=== PATIENT | female | born 1990 | race Caucasian/White ===

== ENCOUNTER 2024-03-30 15:33 | Emergency (ER) | payer OTHER, BC, SELFPAY ==
[2024-03-30 15:34] VITALS: BP 98/79
[2024-03-30 16:37] VITALS: BP 118/92
[2024-03-30 16:48] VITALS: BMI 22.3
--- NOTE | 2024-03-30 16:59 | EDRN ---
IV team called to draw blood from PICC line at this time.
--- NOTE | 2024-03-30 17:33 | ED.GENMED ---
History of Present Illness
General
Chief Complaint: Abnormal Lab Value
Source: patient and family
Exam Limitations: none
Time Seen by Provider: 03/30/24 16:32
Nursing documentation reviewed up to this point in time: agreed with
History of Present Illness
History of Present Illness:
Patient with history of GERD, Crohn's disease, and liver cirrhosis, presents to the emergency department from rehab facility secondary to recurrent abdominal distention along with 'abnormal blood work'. Patient denies fever or chills. Denies
trauma. Denies nausea or vomiting. Denies diarrhea. Denies change in bowel habits. Denies recent change in medications or diet. Patient states that her abdomen is mildly distended, but has been more distended in the past when she required acute
treatment. Per father at bedside, patient does not look much different than her usual baseline condition.
Review of Systems
Review of Systems
Allergies reviewed?: Yes
All Other Systems: ROS reviewed and negative except as documented in HPI and ROS
Constitutional: Reports no symptoms; Denies fever or chills
Cardiac: Reports no symptoms
ABD/GI: Reports other (distention); Denies abdominal pain, nausea, vomiting or diarrhea
: Reports no symptoms
Musculoskeletal: Reports no symptoms
Skin: Reports no symptoms
Neurological: Reports no symptoms
Phy Exam
Physical Exam
Physical Exam:
Physical Exam
General: no apparent distress, not acutely ill. afebrile
Head: nc/at. eomi
Neck: supple. no meningeal signs.
Heart: s1/s2 regular rate and rhythm, no murmur. equal radial pulses.
Lungs: no acute respiratory distress. clear bilaterally
Abdomen: normal bowel sounds. not tender. minimal distention noted.
Neuro: alert and oriented. no focal neurological deficits
Skin: no rash
Psychiatric: well kept. interactive and cooperative
Extremities: no edema. no calf tenderness.
Course
Orders/Labs/Results
Orders:
Orders
10/23/24 17:21
Cr Chest Portable [CR Chest Portable - 1 View] Urgent
Comment:
Reason For Exam: LUE picc line placement
Reason Study Needs to be Portable: Patient Unstable
03/30/24 20:00
Complete Blood Count/With Diff Urgent
Comprehensive Metabolic Panel Urgent
Lipase Urgent
Magnesium Urgent
Abnormal Lab Results
03/30/24
20:00
RBC 3.34 L 10^6/uL
(4.20-5.40)
Hgb 10.1 L g/dL
(12.0-16.0)
Hct 30.7 L %
(37.0-47.0)
MCHC 32.9 L g/dL
(33.0-37.0)
RDW 17.9 H %
(11.5-14.5)
MPV 10.8 H fL
(7.4-10.4)
Abs Immat Gran (auto) 0.1 H 10^3/uL
(0-0.05)
Immature Gran % 1.0 H %
(0-0.5)
Neutrophils % 79.5 H %
(42.2-75.2)
Lymphocytes % 16.7 L %
(20.5-51.1)
Sodium 134 L mmol/L
(135-145)
Carbon Dioxide 17 L mmol/L
(22-30)
Creatinine 0.5 L mg/dL
(0.6-1.0)
Glucose 166 H mg/dl
(70-99)
Calcium 7.4 L mg/dl
(8.4-10.2)
AST 70 H U/L
(14-36)
ALT 42 H U/L
(0-35)
Alkaline Phosphatase 251 H U/L
(38-126)
Total Protein 4.7 L g/dl
(6.3-8.2)
Albumin 1.8 L g/dl
(3.5-5.0)
Lipase 16 L U/L
(23-300)
03/30/24 20:00
03/30/24 20:00
Vital Signs
Initial and Last Documented VS:
Initial Vital Signs
Temp Pulse Resp BP Pulse Ox
98.8 F 119 20 98/79 97
03/30/24 15:34 03/30/24 15:34 03/30/24 15:34 03/30/24 15:34 03/30/24 15:34
Last Documented Vital Signs
Temp Pulse Resp BP Pulse Ox
98.8 F 103 20 125/86 97
03/30/24 15:34 03/30/24 21:30 03/30/24 21:30 03/30/24 21:30 03/30/24 20:02
MDM/Problems Addressed
MDM/Problems Addressed:
Patient with an unremarkable workup in ED, including blood work. Patient otherwise remains afebrile, hemodynamically stable, and nontoxic-appearing. Patient states that her abdominal pain has subsided and requesting meals, which she has consumed
in ED without difficulties. Patient and her father feel comfortable going home at this time, with any further workup. Advised to return to ED with any worsening symptoms, i.e. fever/worsening pain/distention/vomiting.
*Critical Care Note
Total Time (30-74mins, 75-104mins- exclusive of procedures): Not Applicable
ED Attending Note
-
Portions of this chart may have been created with voice recognition software.� Occasional wrong word or��sound alike� substitutions may have occurred due to the inherent limitations of voice recognition software.
Discharge Plan
Departure
Patient Disposition: Home (Routine Discharge)
Date of Disposition: 03/30/24
Time of Disposition: 21:22
Patient with high blood pressure during this ER visit?: No
Condition: Good
Discharge Problem:
Abdominal pain
Instructions: Abdominal Pain, Adult ED
Prescriptions:
No Action
quetiapine 25 mg Tablet
25 mg PO BID
sennosides [senna] 8.6 mg Tablet
8.6 mg PO DAILY
lidocaine 4 % Adhesive Patch,Medicated
1 patch TOPICAL DAILY
ondansetron HCl [Zofran] 4 mg Tablet
4 mg PO Q8HPRN PRN (Reason: nausea)
loperamide 2 mg Tablet
2 mg PO Q6HPRN PRN (Reason: diarrhea)
thiamine HCl (vitamin B1) 100 mg Tablet
100 mg PO DAILY
acetaminophen 500 mg Tablet
1,000 mg PO Q8HPRN PRN (Reason: mild pain)
ascorbic acid (vitamin C) [Vitamin C] 500 mg Tablet
500 mg PO DAILY
doxycycline monohydrate 100 mg Capsule
100 mg PO BID
pantoprazole 40 mg Tablet,Delayed Release (Dr/Ec)
40 mg PO DAILY
ferrous sulfate 325 mg (65 mg iron) Tablet
325 mg PO DAILY
prednisone 50 mg Tablet
50 mg PO DAILY
docusate sodium 100 mg Capsule
100 mg PO BID
furosemide [Lasix] 20 mg Tablet
20 mg PO BID
gabapentin 100 mg Capsule
100 mg PO Q8
scopolamine base 1 mg over 3 days Patch 3 Day
1 patch TRANSDERMAL Q3D
dicyclomine 10 mg Capsule
10 mg PO Q6HPRN PRN (Reason: treatment of functiona/ibs)
spironolactone [Aldactone] 50 mg Tablet
50 mg PO DAILY
bisacodyl 5 mg Tablet
5 mg PO DAILYPRN PRN (Reason: constipation)
enoxaparin [Lovenox] 30 mg/0.3 mL Syringe
30 mg SC DAILY
sodium chloride 0.9 % (flush) [Normal Saline Flush] Syringe
10 ml IV TID
Patient Comments:
for SASH/SAS technique after med administration
mirtazapine 7.5 mg Tablet
7.5 mg PO HS
zinc sulfate 50 mg zinc (220 mg) Capsule
50 mg PO DAILY
buprenorphine-naloxone [Suboxone] 8-2 mg Film
1 film BUCCAL BID
lactulose 20 gram/30 mL Solution
20 g PO TID
potassium chloride 20 mEq Tablet Extended Release
20 meq PO DAILY
naloxone 4 mg/actuation [place],Non-Aerosol
4 mg INTRANASAL Q2MPRN PRN (Reason: opioid overdose)
magnesium oxide 400 mg magnesium Tablet
400 mg PO DAILY
Referrals:
NONE,* [Family Provider] -
Activity Restrictions/Additional Instructions:
As discussed, please follow-up with your primary care physician for reevaluation. Please return to ED with worsening symptoms, i.e. fever/worsening pain/vomiting.
Interventions
Interventions:
*Risk Screen - Suicide Last Done: 03/30/24 15:34
*General Assessment Last Done: 03/30/24 15:34
*Neglect/Abuse Screening Last Done: 03/30/24 15:34
ED- Fall Risk Assessment Last Done: 03/30/24 16:49
*ED COVID-19 Vaccine History Last Done: 03/30/24 16:48
*Nursing Disposition Last Done: 03/30/24 21:49
Discharge Date and Time
Discharge Date/Time: 03/30/24 21:50
Print Language: MALTESE
[2024-03-30 17:41] VITALS: BP 123/99
--- NOTE | 2024-03-30 18:01 | EDRN ---
IV nurse attempted to draw blood from PICC line and could not draw blood off of line. Dr. Conway requested this RN to straight stick pt for blood but no veins found to stick. [facility] PCT was asked to check and see if she could draw the blood. Dr. Mcintosh
asked for this RN to request a plastic production machine setter to attempt blood draw but [employer] said ER cannot page phlebotomy to draw bloods in the ER. This RN will check w/ charge nurse on options. In the meantime pt is awaiting portable CXR and IV team will return
after it is done as unable to draw off of PICC line.
--- NOTE | 2024-03-30 18:23 | EDRN ---
[facility] at [facility]. Blood was drawn by Kathie medical technologist chief and sent to lab w/ 'difficult stick' comment.
--- NOTE | 2024-03-30 18:48 | EDRN ---
Unable to result labs. PICC line read in place from CXR. IV team called back to re-attempt blood draw at this time.
[2024-03-30 20:02] VITALS: BP 85/75
[2024-03-30 20:13] LABS: % Basophils 0.1 % (0-2); % Lymphocytes 16.7 % (20.5-51.1); % Monocytes 2.7 % (1.7-9.3); % Neutrophils 79.5 % (42.2-75.2); Absolute Immature Granulocytes 0.1 10^3/uL (0-0.05); Absolute Lymphocytes 1.3 10^3/uL (1.2-3.4); Absolute Monocytes 0.2 10^3/uL (0.1-0.6); Absolute Neutrophils 6.2 10^3/uL (1.4-6.5); Hematocrit 30.7 % (37.0-47.0); Hemoglobin 10.1 g/dL (12.0-16.0); Mean Corp Hgb Conc. 32.9 g/dL (33.0-37.0); Mean Corpuscular Hgb 30.2 pg (27.0-31.0); Mean Corpuscular Volume 91.9 fL (81.0-99.0); Mean Platelet Volume 10.8 fL (7.4-10.4); Nucleated Red Blood Cells % 0.3 %; Platelet Count 210 10^3/uL (130-400); Red Blood Cell Count 3.34 10^6/uL (4.20-5.40); Red Cell Dist. Width 17.9 % (11.5-14.5); White Blood Cell Count 7.8 10^3/uL (4.8-10.8)
[2024-03-30 20:24] LABS: ALT (SGPT) 42 U/L (0-35); AST (SGOT) 70 U/L (14-36); Albumin 1.8 g/dl (3.5-5.0); Alkaline Phosphatase 251 U/L (38-126); Blood Urea Nitrogen 11 mg/dl (7-17); Calcium 7.4 mg/dl (8.4-10.2); Carbon Dioxide 17 mmol/L (22-30); Chloride 103 mmol/L (98-107); Estimated Creatinine Clearance 119 ml/min; Glucose 166 mg/dl (70-99); Magnesium 1.6 mg/dl (1.6-2.3); Potassium 3.7 mmol/L (3.5-5.1); Sodium 134 mmol/L (135-145); Total Bilirubin 0.3 mg/dl (0.2-1.3); Total Protein 4.7 g/dl (6.3-8.2); eGFR > 60.00
[2024-03-30 20:25] LABS: Lipase 16 U/L (23-300)
[2024-03-30 21:30] VITALS: BP 125/86
== END 2024-03-30 21:50 | disposition home or self-care (01) ==
LOC: EMR 15:33
PROVIDERS: EMERGENCY PHYSICIAN Emergency Medicine
DX: R10.9 Unspecified abdominal pain (principal); K21.9 Gastro-esophageal reflux disease without esophagitis; K50.90 Crohn's disease, unspecified, without complications; K74.60 Unspecified cirrhosis of liver
CPT/HCPCS: 99284; 71045; 80053; 83690; 83735; 85025

== ENCOUNTER 2024-04-01 02:00 | Inpatient (IN) | payer OTHER, SELFPAY ==
[2024-03-31 20:29] VITALS: BP 101/79
[2024-03-31 20:35] VITALS: BP 56/26
[2024-03-31 20:37] VITALS: BP 101/79
[2024-03-31 20:38] VITALS: BP 108/86
[2024-03-31 21:00] VITALS: BP 91/76
--- NOTE | 2024-03-31 21:34 | VATNOTE ---
called to obtain lab work and assess left picc line; pt does not know when picc was placed at rehab but was placed for lab work. Picc appears to have been redressed 03/30 by LUÍS here @ . Picc line is sluggish for blood flow after multiple
flushes. Requested cath rai be ordered for picc patency.
[2024-03-31] MEDS: DILAUDID 1 MG IV (21:56)
[2024-03-31] MEDS: ZOFRAN 4 MG IV (21:56)
[2024-03-31 22:00] VITALS: BP 102/88
[2024-03-31] MEDS: OMNIPAQUE 50 ML PO (22:12)
[2024-03-31] MEDS: NSS 1000 IV (22:13)
--- NOTE | 2024-03-31 22:20 | VATNOTE ---
decision to pull picc back a 'titch' and redress with statlock. Blood flow improved from earlier. Labs obtained. Cathflo not given at this time.
[2024-03-31 22:22] LABS: % Basophils 0.2 % (0-2); % Eosinophils 0.1 % (0-6); % Immature Granulocytes 0.5 % (0-0.5); % Lymphocytes 23.9 % (20.5-51.1); % Monocytes 9.7 % (1.7-9.3); % Neutrophils 65.6 % (42.2-75.2); Absolute Immature Granulocytes 0.1 10^3/uL (0-0.05); Absolute Lymphocytes 4.2 10^3/uL (1.2-3.4); Absolute Monocytes 1.7 10^3/uL (0.1-0.6); Absolute Neutrophils 11.6 10^3/uL (1.4-6.5); Hematocrit 30.4 % (37.0-47.0); Mean Corp Hgb Conc. 32.9 g/dL (33.0-37.0); Mean Corpuscular Hgb 29.4 pg (27.0-31.0); Mean Corpuscular Volume 89.4 fL (81.0-99.0); Mean Platelet Volume 10.1 fL (7.4-10.4); Nucleated Red Blood Cells % 0.3 %; Platelet Count 228 10^3/uL (130-400); Red Cell Dist. Width 17.6 % (11.5-14.5); White Blood Cell Count 17.6 10^3/uL (4.8-10.8)
[2024-03-31 22:34] LABS: ALT (SGPT) 41 U/L (0-35); AST (SGOT) 53 U/L (14-36); Albumin 1.7 g/dl (3.5-5.0); Alkaline Phosphatase 216 U/L (38-126); Blood Urea Nitrogen 13 mg/dl (7-17); Calcium 7.6 mg/dl (8.4-10.2); Carbon Dioxide 26 mmol/L (22-30); Chloride 105 mmol/L (98-107); Glucose 87 mg/dl (70-99); Lipase 18 U/L (23-300); Potassium 4.5 mmol/L (3.5-5.1); Sodium 133 mmol/L (135-145); Total Bilirubin 0.3 mg/dl (0.2-1.3); Total Protein 4.4 g/dl (6.3-8.2); eGFR > 60.00
--- NOTE | 2024-03-31 22:35 | ED.GENMED ---
History of Present Illness
<Sarah Pozo PA-C - Last Filed: 04/03/24 18:05>
General
Chief Complaint: Abdominal Symptoms
Source: patient and family
Time Seen by Provider: 03/31/24 21:31
History of Present Illness
History of Present Illness:
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
department for evaluation of abdominal pain, increased belching, nausea and generally feeling unwell. Patient states that since her complications in [place] that led to her right upper extremity being amputated she has had these abdominal pains and
symptoms. Patient had a bowel obstruction a few months ago and was admitted at [facility] and [facility] for similar. Patient has been in and out of rehab facilities and hospitals for the symptoms. Recently was discharged from
rehab facility although both patient and family feel that patient was discharged too early as she is unable to walk. Patient states today symptoms are not much different than what she has been experiencing chronically but patient does state that
she feels as if she is having a recurrent bowel obstruction.
Past History
<Sarah Pozo PA-C - Last Filed: 04/03/24 18:05>
Past History
ED Past Medical History: Renal failure, Psychiatric and Other (Hepatitis C, Crohn's disease, liver disease)
ED Past Surgical History: Tonsilectomy and Other (Partial right upper extremity amputation)
Social History
Tobacco: Smoker
Alcohol: None
Drug: Former user and IVDA
Personal: Single
Living: with family
Review of Systems
<Sarah Pozo PA-C - Last Filed: 04/03/24 18:05>
Review of Systems
All Other Systems: ROS reviewed and negative except as documented in HPI and ROS
Phy Exam
<Sarah Pozo PA-C - Last Filed: 04/03/24 18:05>
Physical Exam
Physical Exam:
GENERAL: Alert , appears older than stated age, chronically ill-appearing, appears quite uncomfortable
HEAD: NCAT
EYE: Clear conjunctiva
NECK: Supple
ENT: mmm.
CARDIAC: Regular rate and rhythm .
LUNGS: Clear breath sounds bilaterally, no acute respiratory distress, no wheezes/rales/rhonchi
ABDOMEN: Firm and somewhat rigid, distended, diffusely tender, hypoactive bowel sounds
NEUROLOGICAL: Alert and oriented
SKIN: Warm and dry, skin intact.
MUSCULOSKELETAL:, Stump without any erythema, no bogginess, partial right upper extremity amputation noted well perfused.
PSYCH: Normal and appropriate interaction.
Scores
<Sarah Pozo PA-C - Last Filed: 04/03/24 18:05>
Heart Failure Risk
Heart Failure Risk Score: Not Applicable
Heart Score for Chest Pain Patients
STEMI patient?: Not applicable
Withdrawal Assessment of Alcohol
Withdrawal Assessment Completed?: Not applicable
Course
<Sarah Pozo PA-C - Last Filed: 04/03/24 18:05>
Orders/Labs/Results
Orders:
Orders
03/31/24 20:40
Chest X-ray Portable [CR Chest Portable - 1 View] Urgent
Comment:
Reason For Exam: PICC placement
Reason Study Needs to be Portable: Patient Unstable
03/31/24 21:18
Alteplase [Cathflo/Activase] 2 mg INTRACATH NOW STA
03/31/24 21:50
0.9% Sodium Chloride 1000 ml [Nss] 1,000 ml IV BOLUS
HYDROmorphone [Dilaudid] 1 mg IV NOW STA
Ondansetron Injectable [Zofran] 4 mg IV NOW STA
Test Result ONCE
03/31/24 22:05
Iohexol [Omnipaque] See Protocol PO NOW STA
03/31/24 22:16
Complete Blood Count/With Diff Urgent
Comprehensive Metabolic Panel Urgent
HCG, Serum Qualitative Screen Urgent
Lipase Urgent
03/31/24 22:47
Lactic Acid Q4H
Comment: CANCEL 2nd LACTIC ACID IF 1st LACTIC ACID IS LESS THAN 2
03/31/24 23:20
0.9% Sodium Chloride 1000 ml [Nss] 1,000 ml IV BOLUS
03/31/24 23:30
Blood Culture Q30M
BEN Source: Blood/Venous
Specimen Description:
03/31/24 23:36
Piperacillin/Tazo 4.5 Gram [Zosyn] 4.5 gram in 100 ml IV NOW
03/31/24 23:45
CT Abd/pel (oral only)-[facility] Only Urgent
Reason For Exam: abdominal pain, hx bowel obstruction
04/01/24 00:15
NG Tube [GI tube insertion- Treatment] ONCE
04/01/24 00:47
Portable Chest Xray [CR Chest Portable - 1 View] Urgent
Comment:
Reason For Exam: confirm NGT placement
Reason Study Needs to be Portable: Unable to Transport
04/01/24 01:29
HYDROmorphone [Dilaudid] 0.5 mg IV NOW STA
04/01/24 01:45
Admit/Transfer Patient As Directed
Co-Sign Provider:
Level of Care: Inpatient admission
Assign to:: Medical/Surgical
Physician / Group: hospitalist
Diagnosis: small bowel obstruction
Reason for Hospitalization: small bowel obstruction
Expected length of stay greater than two midnights?: Yes
ELOS- Estimated Length of Stay in days: 2
I certify the patient meets the requirements for IP care: Yes
PRN Pain Medication Management As Directed
May give lesser potent ordered pain med per pt: Yes
preference::
Protocol:: Medication orders for pain may be administered in a
manner that supports deferring to patient preference
when the pt is:
- Requesting an ordered lesser potent pain medication.
Least to most potent pain medications are defined
as: acetaminophen < NSAID < tramadol < opioids
(morphine, oxycodone, hydromorphone).
- Requesting a lesser dose of the same medication IF
ORDERED.
- Requesting a less intrusive route of administration
if both routes are prescribed by the provider (PO <
IV).
04/01/24 01:46
Code Status As Directed
Resuscitation Status: Full Code
04/01/24 01:57
Urinalysis Reflex To Culture Stat
Date Specimen was Collected: 04/02/24
Time Specimen was Collected: 11:09
Comment: st cath
04/01/24 02:00
Flush (0.9% Sodium Chloride) [Flush (Nss)] See Dose Instructions IV PER PROTOCOL
04/01/24 02:13
Acetaminophen [Tylenol] 650 mg PO Q4HPRN PRN
Bisacodyl [Dulcolax] 10 mg RECTAL [id number] PRN
Dextrose 5%/Lactringers 1000ML [D5lr] 1,000 ml IV 30 mls/hr
Docusate W/Senna [Senokot-S] 1 tablet PO BIDPRN PRN
HYDROmorphone [Dilaudid] 0.5 mg IV Q4HPRN PRN
Ondansetron Injectable [Zofran] 4 mg IV Q6HPRN PRN
Polyethylene Glycol Powder [Miralax] 17 grams PO DAILYPRN PRN
04/01/24 02:13
Consult Notification Routine
Specialty to Notify: Gastroenterology
Date consulting provider notified: 04/01/24
Time consulting provider notified: 06:54
Notified:: Provider
Consult Notification Routine
Specialty to Notify: Surgical
Date consulting provider notified: 04/01/24
Time consulting provider notified: 06:53
Notified:: Provider
GASTROINTESTINAL CONSULT Routine
Consulting Provider: Catia Rowland
Was physician already notified: No
Reason for consult: h/o crohns here with SBP
SURGICAL CONSULT Routine
Consulting Provider: Crescencio Gonzalez
Was physician already notified: No
Reason for consult: small bowel obstruction
Calprotectin, Fecal [S] Routine
Date Specimen was Collected: 04/02/24
Time Specimen was Collected: 19:11
Activity As Directed
Activity Level: With Assistance
Medical Records Request [Obtain Records] As Directed
Dates of Information to be Released: February 06 to March 31 2024
Type of Information Requested: Discharge Summary
Consults
Radiology Results
H&P
Obtain Records from: [facility]
NG Tube [Gastrointestinal Tubes] As Directed
Type: [place] sump
To suction?: Yes
Type of suction: Low intermittent
Directions to clamp NG tube: for activity <30min
Irrigate tube?: Yes
Irrigant: Tap Water
Frequency: Q4H
Amount in mls: 30
Irrigation Directions: Irrigate Q4H and PRN
Vital Signs As Directed
Frequency: Per unit guidelines
DX Deep Vein Thrombosis Video Routine
04/01/24 03:25
Lactic Acid Q4H
Comment: CANCEL 2nd LACTIC ACID IF 1st LACTIC ACID IS LESS THAN 2
04/01/24 03:26
Blood Culture Q30M
BEN Source: Blood/Venous
Specimen Description:
04/01/24 Breakfast
NPO
Allow oral meds: Yes
Allow clear liquids: No
NPO with Ice Chips: Yes
04/01/24 07:38
Basic Metabolic Panel IN AM
CRP [C-Reactive Protein] IN AM
Complete Blood Count/No Diff IN AM
Magnesium IN AM
04/01/24 08:00
Buprenorphine [Subutex] 1 mg SL BID
Gabapentin [Neurontin] 100 mg PO Q8
Heparin 5,000 units SC Q8
Lactulose [Duphalac/Chronulac] 20 grams PO TID
Lidocaine [Lidocaine 4% Patch] 1 patch TOPICAL DAILY
Apply Lidocaine patch(s) to:: Left Shoulder
Pantoprazole [Protonix IV] 40 mg IV DAILY
Quetiapine Fumarate [Seroquel] 25 mg PO BID
Scopolamine [Transderm-Scop] 1 patch TRANSDERM Q3D
Sennosides [Senokot] 8.6 mg PO DAILY
Spironolactone [Aldactone] 50 mg PO DAILY
Thiamine Injection 100 mg IV DAILY
04/01/24 20:00
Remove Patch [Remove Lidocaine Patch] 1 patch REMOVE DAILY@1999
Abnormal Lab Results
03/31/24 03/31/24
22:16 22:47
WBC 17.6 H 10^3/uL
(4.8-10.8)
RBC 3.40 L 10^6/uL
(4.20-5.40)
Hgb 10.0 L g/dL
(12.0-16.0)
Hct 30.4 L %
(37.0-47.0)
MCHC 32.9 L g/dL
(33.0-37.0)
RDW 17.6 H %
(11.5-14.5)
Abs Immat Gran (auto) 0.1 H 10^3/uL
(0-0.05)
Absolute Neuts (auto) 11.6 H 10^3/uL
(1.4-6.5)
Absolute Lymphs (auto) 4.2 H 10^3/uL
(1.2-3.4)
Absolute Monos (auto) 1.7 H 10^3/uL
(0.1-0.6)
Monocytes % 9.7 H %
(1.7-9.3)
Sodium 133 L mmol/L
(135-145)
Creatinine 0.4 L mg/dL
(0.6-1.0)
Lactic Acid 2.4 H mmol/L
(0.7-2.0)
Calcium 7.6 L mg/dl
(8.4-10.2)
AST 53 H U/L
(14-36)
ALT 41 H U/L
(0-35)
Alkaline Phosphatase 216 H U/L
(38-126)
Total Protein 4.4 L g/dl
(6.3-8.2)
Albumin 1.7 L g/dl
(3.5-5.0)
Lipase 18 L U/L
(23-300)
03/31/24 22:16
03/31/24 22:16
Vital Signs
Initial and Last Documented VS:
Initial Vital Signs
Temp Pulse Resp BP Pulse Ox
97.8 F 86 18 101/79 100
03/31/24 20:29 03/31/24 20:29 03/31/24 20:29 03/31/24 20:29 03/31/24 20:29
Last Documented Vital Signs
Temp Pulse Resp BP Pulse Ox
98.0 F 97 23 110/77 98
04/03/24 15:56 04/03/24 15:00 04/03/24 15:00 04/03/24 14:00 04/03/24 16:00
Codilt;Sonny Sultana, DO - Last Filed: 04/01/24 01:15>
Orders/Labs/Results
Orders:
Orders
03/31/24 20:40
Chest X-ray Portable [CR Chest Portable - 1 View] Urgent
Comment:
Reason For Exam: PICC placement
Reason Study Needs to be Portable: Patient Unstable
03/31/24 21:18
Alteplase [Cathflo/Activase] 2 mg INTRACATH NOW STA
03/31/24 21:50
0.9% Sodium Chloride 1000 ml [Nss] 1,000 ml IV BOLUS
HYDROmorphone [Dilaudid] 1 mg IV NOW STA
Ondansetron Injectable [Zofran] 4 mg IV NOW STA
Test Result ONCE
03/31/24 22:05
Iohexol [Omnipaque] See Protocol PO NOW STA
03/31/24 22:16
Complete Blood Count/With Diff Urgent
Comprehensive Metabolic Panel Urgent
HCG, Serum Qualitative Screen Urgent
Lipase Urgent
03/31/24 22:47
Lactic Acid Q4H
Comment: CANCEL 2nd LACTIC ACID IF 1st LACTIC ACID IS LESS THAN 2
03/31/24 23:20
0.9% Sodium Chloride 1000 ml [Nss] 1,000 ml IV BOLUS
03/31/24 23:30
Blood Culture Q30M
BEN Source: Blood/Venous
Specimen Description:
03/31/24 23:36
Piperacillin/Tazo 4.5 Gram [Zosyn] 4.5 gram in 100 ml IV NOW
03/31/24 23:45
CT Abd/pel (oral only)-[facility] Only Urgent
Reason For Exam: abdominal pain, hx bowel obstruction
04/01/24 00:15
NG Tube [GI tube insertion- Treatment] ONCE
04/01/24 00:47
Portable Chest Xray [CR Chest Portable - 1 View] Urgent
Comment:
Reason For Exam: confirm NGT placement
Reason Study Needs to be Portable: Unable to Transport
04/01/24 01:29
HYDROmorphone [Dilaudid] 0.5 mg IV NOW STA
04/01/24 01:45
Admit/Transfer Patient As Directed
Co-Sign Provider:
Level of Care: Inpatient admission
Assign to:: Medical/Surgical
Physician / Group: hospitalist
Diagnosis: small bowel obstruction
Reason for Hospitalization: small bowel obstruction
Expected length of stay greater than two midnights?: Yes
ELOS- Estimated Length of Stay in days: 2
I certify the patient meets the requirements for IP care: Yes
PRN Pain Medication Management As Directed
May give lesser potent ordered pain med per pt: Yes
preference::
Protocol:: Medication orders for pain may be administered in a
manner that supports deferring to patient preference
when the pt is:
- Requesting an ordered lesser potent pain medication.
Least to most potent pain medications are defined
as: acetaminophen < NSAID < tramadol < opioids
(morphine, oxycodone, hydromorphone).
- Requesting a lesser dose of the same medication IF
ORDERED.
- Requesting a less intrusive route of administration
if both routes are prescribed by the provider (PO <
IV).
04/01/24 01:46
Code Status As Directed
Resuscitation Status: Full Code
04/01/24 01:57
Urinalysis Reflex To Culture Stat
Date Specimen was Collected: 04/02/24
Time Specimen was Collected: 11:09
Comment: st cath
04/01/24 02:00
Flush (0.9% Sodium Chloride) [Flush (Nss)] See Dose Instructions IV PER PROTOCOL
04/01/24 02:13
Acetaminophen [Tylenol] 650 mg PO Q4HPRN PRN
Bisacodyl [Dulcolax] 10 mg RECTAL [id number] PRN
Dextrose 5%/Lactringers 1000ML [D5lr] 1,000 ml IV 30 mls/hr
Docusate W/Senna [Senokot-S] 1 tablet PO BIDPRN PRN
HYDROmorphone [Dilaudid] 0.5 mg IV Q4HPRN PRN
Ondansetron Injectable [Zofran] 4 mg IV Q6HPRN PRN
Polyethylene Glycol Powder [Miralax] 17 grams PO DAILYPRN PRN
04/01/24 02:13
Consult Notification Routine
Specialty to Notify: Gastroenterology
Date consulting provider notified: 04/01/24
Time consulting provider notified: 06:54
Notified:: Provider
Consult Notification Routine
Specialty to Notify: Surgical
Date consulting provider notified: 04/01/24
Time consulting provider notified: 06:53
Notified:: Provider
GASTROINTESTINAL CONSULT Routine
Consulting Provider: Catia Rowland
Was physician already notified: No
Reason for consult: h/o crohns here with SBP
SURGICAL CONSULT Routine
Consulting Provider: Crescencio Gonzalez
Was physician already notified: No
Reason for consult: small bowel obstruction
Calprotectin, Fecal [S] Routine
Date Specimen was Collected: 04/02/24
Time Specimen was Collected: 19:11
Activity As Directed
Activity Level: With Assistance
Medical Records Request [Obtain Records] As Directed
Dates of Information to be Released: February 06 to March 31 2024
Type of Information Requested: Discharge Summary
Consults
Radiology Results
H&P
Obtain Records from: [facility]
NG Tube [Gastrointestinal Tubes] As Directed
Type: Eli lainez
To suction?: Yes
Type of suction: Low intermittent
Directions to clamp NG tube: for activity <30min
Irrigate tube?: Yes
Irrigant: Tap Water
Frequency: Q4H
Amount in mls: 30
Irrigation Directions: Irrigate Q4H and PRN
Vital Signs As Directed
Frequency: Per unit guidelines
DX Deep Vein Thrombosis Video Routine
04/01/24 03:25
Lactic Acid Q4H
Comment: CANCEL 2nd LACTIC ACID IF 1st LACTIC ACID IS LESS THAN 2
04/01/24 03:26
Blood Culture Q30M
BEN Source: Blood/Venous
Specimen Description:
04/01/24 Breakfast
NPO
Allow oral meds: Yes
Allow clear liquids: No
NPO with Ice Chips: Yes
04/01/24 07:38
Basic Metabolic Panel IN AM
CRP [C-Reactive Protein] IN AM
Complete Blood Count/No Diff IN AM
Magnesium IN AM
04/01/24 08:00
Buprenorphine [Subutex] 1 mg SL BID
Gabapentin [Neurontin] 100 mg PO Q8
Heparin 5,000 units SC Q8
Lactulose [Duphalac/Chronulac] 20 grams PO TID
Lidocaine [Lidocaine 4% Patch] 1 patch TOPICAL DAILY
Apply Lidocaine patch(s) to:: Left Shoulder
Pantoprazole [Protonix IV] 40 mg IV DAILY
Quetiapine Fumarate [Seroquel] 25 mg PO BID
Scopolamine [Transderm-Scop] 1 patch TRANSDERM Q3D
Sennosides [Senokot] 8.6 mg PO DAILY
Spironolactone [Aldactone] 50 mg PO DAILY
Thiamine Injection 100 mg IV DAILY
04/01/24 20:00
Remove Patch [Remove Lidocaine Patch] 1 patch REMOVE DAILY@1999
Abnormal Lab Results
03/31/24 03/31/24
22:16 22:47
WBC 17.6 H 10^3/uL
(4.8-10.8)
RBC 3.40 L 10^6/uL
(4.20-5.40)
Hgb 10.0 L g/dL
(12.0-16.0)
Hct 30.4 L %
(37.0-47.0)
MCHC 32.9 L g/dL
(33.0-37.0)
RDW 17.6 H %
(11.5-14.5)
Abs Immat Gran (auto) 0.1 H 10^3/uL
(0-0.05)
Absolute Neuts (auto) 11.6 H 10^3/uL
(1.4-6.5)
Absolute Lymphs (auto) 4.2 H 10^3/uL
(1.2-3.4)
Absolute Monos (auto) 1.7 H 10^3/uL
(0.1-0.6)
Monocytes % 9.7 H %
(1.7-9.3)
Sodium 133 L mmol/L
(135-145)
Creatinine 0.4 L mg/dL
(0.6-1.0)
Lactic Acid 2.4 H mmol/L
(0.7-2.0)
Calcium 7.6 L mg/dl
(8.4-10.2)
AST 53 H U/L
(14-36)
ALT 41 H U/L
(0-35)
Alkaline Phosphatase 216 H U/L
(38-126)
Total Protein 4.4 L g/dl
(6.3-8.2)
Albumin 1.7 L g/dl
(3.5-5.0)
Lipase 18 L U/L
(23-300)
03/31/24 22:16
03/31/24 22:16
Vital Signs
Initial and Last Documented VS:
Initial Vital Signs
Temp Pulse Resp BP Pulse Ox
97.8 F 86 18 101/79 100
03/31/24 20:29 03/31/24 20:29 03/31/24 20:29 03/31/24 20:29 03/31/24 20:29
Last Documented Vital Signs
Temp Pulse Resp BP Pulse Ox
98.0 F 97 23 110/77 98
04/03/24 15:56 04/03/24 15:00 04/03/24 15:00 04/03/24 14:00 04/03/24 16:00
<Sarah Pozo PA-C - Last Filed: 04/03/24 18:05>
MDM/Problems Addressed
Differential Diagnosis Includes:
Recurring bowel obstruction, appendicitis, cholecystitis, pancreatitis, other surgical bowel pathology, opioid withdrawal
MDM/Problems Addressed:
34-year-old female with complex recent past medical history presenting to the emergency department for evaluation of worsening abdominal pain, nausea, difficulty tolerating p.o. and has been experiencing multiple GI symptoms since having right upper
extremity amputation secondary to vascular injury stemming from an overdose. Patient with recent bowel obstruction at separate facility. Has been in and out of various hospitals and rehabs. Patient appears quite uncomfortable, abdominal
distention, firm and rigid. CT of the abdomen and pelvis ordered. Dilaudid ordered for pain control with Zofran. Fluids ordered. Disposition pending
Chronic conditions affecting care: Other (Crohn's disease)
<Sarah Pozo PA-C - Last Filed: 04/03/24 18:05>
*Radiology
Radiology exam reviewed: radiology read reviewed
*Pulse Oximetry
Patient hypoxic: no
*Critical Care Note
Total Time (30-74mins, 75-104mins- exclusive of procedures): Not Applicable
Data Reviewed
Review of Other/Old Records Reveals: Labs and Records
Source: patient and records
<Sarah Pozo PA-C - Last Filed: 04/03/24 18:05>
Comment
Comment:
Patient's lactic acid 2.4. She had already received 1 L normal saline. Sepsis fluid boluses just over 1800 mL so additional 1 L ordered. I do anticipate admission. Patient has a new leukocytosis of 17,000 after having a normal white count
yesterday. LFTs unchanged from yesterday
Patient Management
Discussion with other providers: Hospitalist
<Sonny Sultana DO - Last Filed: 04/01/24 01:15>
Update Note
Update Note:
NAME: AVE CUTLER
DATE OF EXAM: 03/31/2024
Patient No: [id number]
Physician: ADIA^SARAH^Kristen
Date of : 1990
Past Medical History (entered by Technologist):
Reason For Exam (entered by Technologist): severe abd pain
Other Notes (entered by Technologist): h/o obstruction
Additional Information (per [facility]):
CT ABDOMEN AND PELVIS WITHOUT IV CONTRAST
Comparison: None
IMPRESSION:
Stomach and duodenum are distended and much of the small bowel is markedly dilated with air-fluid levels measuring up to 6.2 cm diameter. There is a relatively gradual decrease in caliber in the lower abdomen and the distal small bowel is
relatively decompressed. Findings are suspicious for distal small bowel obstruction. Note that lack of intravenous contrast limits evaluation for underlying causes or complications.
There is moderate colonic stool burden.
Moderate free fluid in the abdomen and pelvis. No free air.
Prominent generalized body wall edema.
Hepatic steatosis. Atrophic spleen.
Prominent mesenteric lymph nodes.
ED Attending Note
<Sarah Pozo PA-C - Last Filed: 04/03/24 18:05>
-
Portions of this chart may have been created with voice recognition software.� Occasional wrong word or��sound alike� substitutions may have occurred due to the inherent limitations of voice recognition software.
<DO Sarah Pearl Last Filed: 04/01/24 01:15>
ED Attending Note
Patient seen and examined by attending physician: Yes
I performed the substantive portion of visit, reviewed & personally made and approve the management plan that is documented in note by myself or MATT.: Yes
ED Attending Note:
34-year-old female with abdominal pain. Discussed CT scan findings with her. She has a small bowel obstruction. She did refill some relief with the NG tube placement. Patient to be admitted to the hospitalist service. I did discuss the case
with the hospitalist. no further questions at this time. Patient to be admitted in improved condition. Patient was seen in conjunction with the MATT. I reviewed and agree with his history and treatment plan. On my independent physical exam
patient awake alert and oriented x 3, moderate distress despite the NG tube. Abdomen is still distended but pain is improving
Discharge Plan
Departure
Patient Disposition: Admit
Date of Disposition: 04/01/24
Time of Disposition: 00:38
Admit to: Telemetry
Presentation/result/management discussed w/ accepting MD/DO: Hospitalist
Discharge Problem:
SBO (small bowel obstruction)
Interventions
Interventions:
*General Assessment Last Done: 03/31/24 20:29
*Neglect/Abuse Screening Last Done: 03/31/24 20:29
ED- Fall Risk Assessment Last Done: 03/31/24 23:42
*ED COVID-19 Vaccine History Last Done: 03/31/24 23:41
*Nursing Disposition Last Done: 04/01/24 06:03
UP-Pfjver-Aibppkpziu Assessment Last Done: 03/31/24 22:36
Discharge Date and Time
Discharge Date/Time: 04/01/24 06:04
[2024-03-31 22:45] LABS: HCG, Serum Qualitative Screen Negative
--- NOTE | 2024-03-31 23:04 | VATNOTE ---
pt stated her picc was placed approx 2 weeks ago @ rehab center for lab draws.
[2024-03-31 23:15] LABS: Lactic Acid 2.4 mmol/L (0.7-2.0)
[2024-03-31] MEDS: ZOSYN 100 IV (23:52)
[2024-04-01] VITALS (23 sets, daily range): BP systolic 71–109; BP diastolic 46–91; BMI 25.7
--- NOTE | 2024-04-01 00:09 | EDRN ---
Pt's father requesting to speak to case management. Would like a phone call in the morning.
[2024-04-01] MEDS: NSS 1000 IV (00:41)
--- NOTE | 2024-04-01 01:31 | HPS.HSE ---
Family Physician
-
Family Physician: * NONE
Chief Complaint
-
Abdominal pain and distention
History of Present Illness
This is a 34-year-old female with past medical history of hep C cirrhosis, GERD, Crohn's disease, who presents to the ED from rehab facility abdominal distention.
Patient is a fairly poor historian and history corroborated as best with family members (father). It appears patient was diagnosed with Crohn's disease within the last year at [facility]. Prior to that she was not feeling that way he had
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 After diagnosis of Crohn nausea rate patient was discharged to rehab. From rehab she was admitted back at [facility] with abdominal complaints. There she found
that she had a small bowel obstruction status post NG tube placement. She self DC'd the NG tube but then it was replaced. It appears that she was seen by surgery and was pronounced to be a fairly poor surgical candidate. Ultimately the bowel
obstruction resolved and patient was able to tolerate p.o. She was tolerating p.o. after discharge for the first few days but oral intake slowly declined. She was noted to be protein malnourished and started on supplements but is lactose
intolerant and did not tolerate the supplements, was given her diarrhea. She denies any intra-abdominal surgeries. Patient reports that she was discharged from the custodial to come to the emergency department earlier today for abdominal
symptoms. She thereupon lost her rehab bed and after being evaluated and discharged on emergency department she was taken home by father. The father noted the swelling in her feet, facial puffiness as well as ongoing abdominal pain and vomiting.
She reports that she was at rehab for physical debilitation and the last time she ambulated was several months ago. She is clearly on medication suggestive of history of opioid dependence (Suboxone).
On arrival in the emergency department she was afebrile, blood pressure was 100/88, pulse was 88 and she was satting 100% on room air. She had a leukocytosis to 17,000, hemoglobin was 10 and platelet was 228. Electrolytes were actually within
normal limits except for a sodium of 133. Bilirubin is normal. LFTs only mildly abnormal. No ascites. Albumin 1.7 and calcium was 7.6. Lactic acid is 2.4 initially. Chest x-ray confirms a PICC line. No acute infiltrates. CT of the abdomen
and pelvis shows distention of the stomach and duodenum, dilated loops of small bowel and decompressed distal small bowel suggestive of distal small bowel obstruction.
Medical History
Past Medical History
Past Medical History: Reports GERD and Other (Cirrhosis of the liver)
Additional Past Medical History:
Crohn's
Past Surgical History: Reports Other (Unable to determine)
Social History
Tobacco: Other (Unable to determine)
Alcohol: None
Drug: Former User
Personal: Single
Living: Other (Rehab)
Employment: Disabled
Family History
Family History: Not pertinent
Allergies / Home Medications
Allergies reflects when Allergies were last updated in [employer].
Home Medications with original date entered in [employer]
Allergy/Medication List:
Allergies
Allergy/AdvReac Type Severity Reaction Status Date / Time
No Known Allergies Allergy Verified 03/31/24 20:28
Home Medications
acetaminophen 500 mg tablet 1,000 mg PO Q8HPRN PRN mild pain 03/30/24
ascorbic acid (vitamin C) 500 mg tablet (Vitamin C) 500 mg PO DAILY 03/30/24
bisacodyl 5 mg tablet 5 mg PO DAILYPRN PRN constipation 03/30/24
buprenorphine 8 mg-naloxone 2 mg sublingual film (Suboxone) 1 film buccal BID 03/30/24
dicyclomine 10 mg capsule 10 mg PO Q6HPRN PRN treatment of functiona/ibs 03/30/24
docusate sodium 100 mg capsule 100 mg PO BID 03/30/24
doxycycline monohydrate 100 mg capsule 100 mg PO BID 03/30/24
enoxaparin 30 mg/0.3 mL subcutaneous syringe (Lovenox) 30 mg SC DAILY 03/30/24
ferrous sulfate 325 mg (65 mg iron) tablet 325 mg PO DAILY 03/30/24
furosemide 20 mg tablet (Lasix) 20 mg PO BID 03/30/24
gabapentin 100 mg capsule 100 mg PO Q8 03/30/24
lactulose 20 gram/30 mL oral solution 20 g PO TID 03/30/24
lidocaine 4 % topical patch 1 patch topical DAILY left shoulder 03/30/24
loperamide 2 mg tablet 2 mg PO Q6HPRN PRN diarrhea 03/30/24
magnesium oxide 400 mg PO DAILY 03/30/24
mirtazapine 7.5 mg tablet 7.5 mg PO HS 03/30/24
naloxone 4 mg/actuation nasal spray 4 mg intranasal Q2MPRN PRN opioid overdose 03/30/24
ondansetron HCl 4 mg tablet 4 mg PO Q8HPRN PRN nausea 03/30/24
pantoprazole 40 mg tablet,delayed release 40 mg PO DAILY 03/30/24
potassium chloride 20 mEq tablet,extended release 20 meq PO DAILY 03/30/24
prednisone 50 mg tablet 50 mg PO DAILY 03/30/24
quetiapine 25 mg tablet 25 mg PO BID 03/30/24
scopolamine base 1 mg over 3 days transdermal patch 1 patch transdermal Q3D 03/30/24
sennosides 8.6 mg tablet (senna) 8.6 mg PO DAILY 03/30/24
sodium chloride 0.9 % (flush) (Normal Saline Flush 0.9 % injection syringe) 10 ml IV TID 03/30/24
spironolactone 50 mg tablet (Aldactone) 50 mg PO DAILY 03/30/24
thiamine HCl (vitamin B1) 100 mg tablet 100 mg PO DAILY 03/30/24
zinc sulfate 50 mg zinc (220 mg) capsule 50 mg PO DAILY 03/30/24
Review of Systems
-
History Source: Patient
Constitutional: Reports No Symptoms
EENT: Reports No Symptoms
Respiratory: Reports No Symptoms
Cardiac: Reports No Symptoms
Abdomen/GI: Reports Abdominal Pain and Vomiting
: Reports No Symptoms
Musculoskeletal: Reports No Symptoms
Skin: Reports No Symptoms
Neurological: Reports No Symptoms
Endocrine: Reports No Symptoms
Hematologic/Lymphatic: Reports No Symptoms
Psych: Reports No Symptoms
Physical Exam
Vital Signs
Vital Signs
Temp Pulse Resp BP Pulse Ox
97.8 F 97 18 102/88 97
03/31/24 20:29 04/01/24 01:15 04/01/24 01:15 03/31/24 22:00 04/01/24 00:00
Physical Exam
General: Appears Chronically Ill
HEENT: NormoCephalic, Anicteric, Moist mucous membranes, Atraumatic and PERRLA
Respiratory: Clear
Cardiac: S1/S2 and Regular Rhythm
Breast: Deferred by me
GI: Soft, Tender and Distended
Rectal: Deferred by Provider
Genito-urinary: Deferred by me
Musculoskeletal: No Clubbing, No Cyanosis, Edema, Left Lower Extremity (1+ pedal edema), Edema, Right Lower Extremity (1 + pedal edema) and Other (R upper extremity amputation)
Skin: Warm
Neuro: AO x 3
Hematologic/Lymphatic: No Lymphadenopathy
Psych: Calm
Laboratory Results
-
03/31/24 22:16
03/31/24 22:16
Laboratory Results
Lactic Acid 2.4 mmol/L (0.7-2.0) H 03/31/24 22:47
Total Bilirubin 0.3 mg/dl (0.2-1.3) 03/31/24 22:16
AST 53 U/L (14-36) H 03/31/24 22:16
ALT 41 U/L (0-35) H 03/31/24 22:16
Alkaline Phosphatase 216 U/L (38-126) H 03/31/24 22:16
Lipase 18 U/L (23-300) L 03/31/24 22:16
Data Reviewed
-
Diagnostic Radiology: Image Personally Visualized and interpreted
CT Scan: Report Reviewed by me
Lab Data: Labs Reviewed by me
Old Records: Reviewed
Impression/Plan
-
IMPRESSION:
Patient with history of GERD, cirrhosis, Crohns who presents from a rehab facility with abdominal pain and episode of vomiting. Found to have evidence of small bowel obstruction on CT scan. She also found to have new leukocytosis compared to
earlier in the day. Electrolytes are otherwise normal. CBC otherwise shows a stable hemoglobin and platelet count.
PLAN:
1. SBO - Unexplained SBO, possibly secondary to IBD. No h/o bowel or intraabdominal surgeries according to patient. Reports h/[facility]
- admit to med/surg
- s/p NG, low intermittent for now
- NPO for now
- pain control and antiemetics
- surgery consult
- GI w/u and consult as below
2. Leukocytosis - New leukocytosis compared to lab from initial ED evaluation. No obvious source. Has a PICC line.
- blood cultures (unable to obtain from peripheral, so one drawn from picc line)
- obtain u/a
- no ascites, no upper or lower GI bleed, stable LFTs and no encephalopathy to suggest acute liver decompensation
- given abx in ED (zosyn), will monitor for now.
3. Liver Cirrhosis - Chronic Hep C cirrhosis, hep c untreated. No h/o therapeutic paracentesis, varices, GI bleed. On lactulose/lasix/spironolactone
- no evidence of acute decompensation, pedal edema noted with moderate abdominal/pelvis free fluid on CT scan
- holding lactulose for now, check ammonia levels, u/s for possible diagnostic paracentesis.
- holding diuretics and IV fluids, while NPO
- GI consult
- continue thiamine iv
4. Crohns - abdominal pain and obstruction, possible flare. Documents indicated patient on prednisone and doxycycline but she is unable to corroborate.
- check calprotecting and crp
- ? steroids, hold steroids pending medical records and or GI consult
- hold doxycycline pending medical records, zosyn given in ED
- GI consult
5. Substance use - ? opioid dependence
- naloxone for now
6. Hypoalbuminemia - Pedal edema in the absence of signficant ascites suggest other possible causes. No evidence of CHF and patient on lasix at home. Protein malnutrition suspected and patient lactose intolerant
- check prealbumin, pt/inr
- nutrition consult
PT consult
Case management consult, cannot be cared for at home by parent.
DVT PPX - heparin sq
Code status - full code
[2024-04-01] MEDS: DILAUDID 0.5 MG IV ×5 (01:35→21:43)
[2024-04-01] MEDS: D5LR 1000 IV (02:48)
[2024-04-01] MEDS: D5LR 500 IV (03:56)
[2024-04-01 04:01] LABS: Lactic Acid 2.6 mmol/L (0.7-2.0)
[2024-04-01 04:11] LABS: Ammonia 33 umol/L (9-30)
[2024-04-01] MEDS: PEPCID 20 MG IV (04:31)
--- NOTE | 2024-04-01 05:08 | W.PN.UPDATE ---
Update Note
Progress Note Update
Reported by the nursing staff that the patient complained of SOB.
- Father at the bedside during the exam. patient explained that she can not breath related to NGT, but she has heartburn. No wheezing or crackle was noted on lung exam.
-O2 nasal canula was placed as needed and one time Pepcid was given.
-around 4:45 am patient is tachycardia with hr from 110-120, fever 100.9 lactic acid is trending up from 2.4 to 2.6.
-Covid is neg, blood/urine cultures ordered result is pending. Discussed the case with the color mixer. Patient was started on Zosyn, ID consult was placed and patient upgraded to IMU.
[2024-04-01] MEDS: OFIRMEV 100 IV (05:13)
[2024-04-01] MEDS: DILAUDID 0.25 MG IV (05:28)
[2024-04-01 05:45] LABS: COVID-19 Antigen Negative (Negative)
--- NOTE | 2024-04-01 06:15 | PTCARENOTE ---
Addendum entered by Luis Varner RN 04/01/24 06:18:
poor vascular access, unable to draw labs from PICC, next shift RN notified.
Original Note:
Received pt. approx. 0550.
Pt. moaning, uncooperative, yelling, combative towards staff.
Placed on monitor, hemodynamics stable, unable to answer several; admission questions.
oriented patient to unit, explained plan of care.
[2024-04-01] MEDS: ZOSYN 50 IV ×4 (07:50→23:05)
[2024-04-01 07:56] LABS: INR 1.42; PT 17.1 Sec (11.4-14.6)
[2024-04-01] MEDS: LIDOCAINE 4% PATCH 1 PATCH TOPICAL (07:57)
[2024-04-01] MEDS: PROTONIX IV 40 MG IV (07:58)
[2024-04-01] MEDS: HEPARIN 5000 UNITS SC ×3 (07:58→23:05)
[2024-04-01] MEDS: NSS (PRESERVATIVE FREE) 10 ML IV (07:58)
[2024-04-01 07:59] LABS: Hematocrit 31.4 % (37.0-47.0); Hemoglobin 10.3 g/dL (12.0-16.0); Mean Corp Hgb Conc. 32.8 g/dL (33.0-37.0); Mean Corpuscular Hgb 29.5 pg (27.0-31.0); Red Blood Cell Count 3.49 10^6/uL (4.20-5.40); Red Cell Dist. Width 17.8 % (11.5-14.5); White Blood Cell Count 13.1 10^3/uL (4.8-10.8)
[2024-04-01 08:09] LABS: Blood Urea Nitrogen 13 mg/dl (7-17); Calcium 7.3 mg/dl (8.4-10.2); Carbon Dioxide 23 mmol/L (22-30); Chloride 106 mmol/L (98-107); Estimated Creatinine Clearance 100 ml/min; Glucose 86 mg/dl (70-99); Magnesium 1.6 mg/dl (1.6-2.3); Potassium 4.2 mmol/L (3.5-5.1); Sodium 134 mmol/L (135-145); eGFR > 60.00
[2024-04-01 08:28] LABS: Platelet Count 175 10^3/uL (130-400)
[2024-04-01] MEDS: THIAMINE INJECTION 100 MG IV (08:45)
[2024-04-01 08:48] LABS: Prealbumin (Transthyretin) 6.3 mg/dl (17.6-36.0)
--- NOTE | 2024-04-01 08:58 | CON.GI ---
Addendum entered and electronically signed by Catia Rowland MD 04/01/24 20:12:
I saw and examined the patient.
The DOUBLE CUT SAWYER or PA's note was reviewed and I agree with the note.
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 in November 2023 when she presented with similar episode, now brought in by family for abdominal pain, nausea and vomiting.
In the ER, she was noted to have leukocytosis with white count of 17.6, normocytic anemia with hemoglobin at 10.1, normal platelets, also noted was mildly elevated transaminases and alkaline phosphatase. Lactic acid elevated at 2.4 on admission and
now at 1.9.
She had CT scan of the abdomen pelvis with oral contrast, significant dilation of the proximal and mid small bowel noted measuring up to 6.5 cm in diameter and relative decompression of distal small bowel and colon, suggesting partial small bowel
obstruction. Mild nodular contour of the liver noted.
Patient does not give much of history and seems disinterested in conversation.
-Abdominal pain, nausea and vomiting, currently decompressed with NG tube
Reported history of inflammatory bowel disease, questionable Crohn's diagnosed in November 2023 at [facility] for similar presentation.
No evidence of bowel wall thickening noted on the CT scan at this time.
Will get records from [facility] to review.
Ideally if there is active Crohn's, she will need to be on steroids.
Patient has leukocytosis blood cultures pending, hold off on steroids until leukocytosis resolves and infectious workup negative. Await records from [facility].
NPO. Monitor electrolytes and replete.
-History of hepatitis C, untreated. No evidence of decompensation at this time.
Hepatitis B surface antigen negative but antibody positive suggesting immunity. Hepatitis A antibody total positive as well. Hepatitis C antibody is reactive, await HCV RNA.
Will need outpatient hepatology follow-up for treatment of hepatitis C.
Will follow-up
Original Note:
Consultation
-
Date/Time Consultation Requested: 04/01/24212
Date/Time Consultation Performed: 04/01/24914
Requesting Provider: Dr. Beard
Performing Provider: Dr. Rowland / Adliia Grey PA-C
Reason for Consultation: SBO, Crohn's, abdominal pain, Hepatitis C
Medical History
Chief Complaint / HPI
Chief Complaint: abdominal pain
History of Present Illness:
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
presented to the ED from rehab facility for abdominal pain and distention. Patient is a limited historian so the majority of patient history is obtained from prior records. Patient was previously living in [place], with recent admission at [facility] in November 2023 for similar abdominal pain and states she had both endoscopy and colonoscopy and was diagnosed with Crohn's disease. She does have a prior history of small bowel obstruction, but denies any prior abdominal surgeries.
Reportedly, SBO had previously improved with NGT and resolved without surgical intervention. Patient denies any diarrhea. She never followed up with GI. She has never been on any treatment for Crohn's, other than prednisone. She also has known
Hepatitis C, never treated.
Labs in ER reviewed, which showed leukocytosis with WBC count of 17. Lactic acid 2.4. Hemoglobin 10.1, normal MCV, platelets 210. LFTs: T. bili 0.3, AST 70, ALT 42, alk phos 251, and albumin 1.8. PT 17.1, INR 1.42. C-reactive protein elevated,
33.7. CT of the abdomen and pelvis shows distention of the stomach and duodenum, dilated loops of small bowel and decompressed distal small bowel suggestive of distal small bowel obstruction. She was afebrile in the ER, but temperature did increase
to 100.9 today, 04/01/2024. Blood cultures pending. She has been started on IV antibiotics, Zosyn. Infectious Disease and Surgery have also been consulted.
Past Medical History
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
Past Surgical History: Other (right upper extremity amputation)
Social History
Tobacco: Other (?)
Alcohol: None
Drug: Narcotics and IVDA
Personal: Single
Living: Other (rehab)
Employment: Disabled
Allergies / Home Medications
Allergy/AdvReac Type Severity Reaction Status Date / Time
No Known Allergies Allergy Verified 03/31/24 20:28
�Medication �Instructions �Recorded
acetaminophen 500 mg tablet 1,000 mg PO Q8HPRN PRN mild pain 03/30/24
ascorbic acid (vitamin C) 500 mg 500 mg PO DAILY 03/30/24
tablet (Vitamin C)
bisacodyl 5 mg tablet 5 mg PO DAILYPRN PRN constipation 03/30/24
buprenorphine 8 mg-naloxone 2 mg 1 film buccal BID 03/30/24
sublingual film (Suboxone)
dicyclomine 10 mg capsule 10 mg PO Q6HPRN PRN treatment of 03/30/24
functiona/ibs
docusate sodium 100 mg capsule 100 mg PO BID 03/30/24
doxycycline monohydrate 100 mg 100 mg PO BID 03/30/24
capsule
enoxaparin 30 mg/0.3 mL 30 mg SC DAILY 03/30/24
subcutaneous syringe (Lovenox)
ferrous sulfate 325 mg (65 mg 325 mg PO DAILY 03/30/24
iron) tablet
furosemide 20 mg tablet (Lasix) 20 mg PO BID 03/30/24
gabapentin 100 mg capsule 100 mg PO Q8 03/30/24
lactulose 20 gram/30 mL oral 20 g PO TID 03/30/24
solution
lidocaine 4 % topical patch 1 patch topical DAILY left shoulder 03/30/24
loperamide 2 mg tablet 2 mg PO Q6HPRN PRN diarrhea 03/30/24
magnesium oxide 400 mg PO DAILY 03/30/24
mirtazapine 7.5 mg tablet 7.5 mg PO HS 03/30/24
naloxone 4 mg/actuation nasal spray 4 mg intranasal Q2MPRN PRN opioid 03/30/24
overdose
ondansetron HCl 4 mg tablet 4 mg PO Q8HPRN PRN nausea 03/30/24
pantoprazole 40 mg tablet,delayed 40 mg PO DAILY 03/30/24
release
potassium chloride 20 mEq 20 meq PO DAILY 03/30/24
tablet,extended release
prednisone 50 mg tablet 50 mg PO DAILY 03/30/24
quetiapine 25 mg tablet 25 mg PO BID 03/30/24
scopolamine base 1 mg over 3 days 1 patch transdermal Q3D 03/30/24
transdermal patch
sennosides 8.6 mg tablet (senna) 8.6 mg PO DAILY 03/30/24
sodium chloride 0.9 % (flush) 10 ml IV TID 03/30/24
(Normal Saline Flush 0.9 %
injection syringe)
spironolactone 50 mg tablet 50 mg PO DAILY 03/30/24
(Aldactone)
thiamine HCl (vitamin B1) 100 mg 100 mg PO DAILY 03/30/24
tablet
zinc sulfate 50 mg zinc (220 mg) 50 mg PO DAILY 03/30/24
capsule
Review of Systems
-
Unable to obtain full review of systems at this time due to: Other (patient is a limited historian)
History Source: Patient and Transfer Record
Vital Signs
Temp Pulse Resp BP Pulse Ox
100.9 F H 100 22 109/91 2
04/01/24 05:02 04/01/24 05:30 04/01/24 05:30 04/01/24 03:34 04/01/24 06:04
Physical Exam
Exam
General: Other (appears chronically ill)
Respiratory: Clear
Cardiac: Regular Rhythm
GI: Soft, Tender (+mild generalized tenderness) and Distended
Skin: Warm and Dry
Neuro: Awake and Other (sleepy, mostly noncooperative with answering questions)
Results
WBC 13.1 10^3/uL (4.8-10.8) H 04/01/24 07:38
Hgb 10.3 g/dL (12.0-16.0) L 04/01/24 07:38
Hct 31.4 % (37.0-47.0) L 04/01/24 07:38
MCV 90.0 fL (81.0-99.0) 04/01/24 07:38
Plt Count 175 10^3/uL (130-400) D 04/01/24 07:38
Absolute Neuts (auto) 11.6 10^3/uL (1.4-6.5) H 03/31/24 22:16
PT 17.1 Sec (11.4-14.6) H 04/01/24 07:38
INR 1.42 04/01/24 07:38
Sodium 134 mmol/L (135-145) L 04/01/24 07:38
Potassium 4.2 mmol/L (3.5-5.1) 04/01/24 07:38
Chloride 106 mmol/L (98-107) 04/01/24 07:38
Carbon Dioxide 23 mmol/L (22-30) 04/01/24 07:38
BUN 13 mg/dl (7-17) 04/01/24 07:38
Creatinine 0.4 mg/dL (0.6-1.0) L 04/01/24 07:38
Calcium 7.3 mg/dl (8.4-10.2) L 04/01/24 07:38
Total Bilirubin 0.3 mg/dl (0.2-1.3) 03/31/24 22:16
AST 53 U/L (14-36) H 03/31/24 22:16
ALT 41 U/L (0-35) H 03/31/24 22:16
Alkaline Phosphatase 216 U/L (38-126) H 03/31/24 22:16
Lipase 18 U/L (23-300) L 03/31/24 22:16
Diagnostic Image Results:
CT Abdomen/Pelvis (oral contrast only): 03/31/24
1. Significant dilation of the proximal and mid small bowel, measuring up to 6.5 cm in diameter, with relative decompression of the distal small bowel and colon. Findings are suggestive of at least partial small intestinal obstruction, although
well-defined transition point is not appreciated.
2. Small amount of free fluid within the abdomen and pelvis.
3. No evidence of pneumatosis intestinalis or extraluminal air.
4. Mild nodularity of the hepatic contour, a nonspecific finding which may be seen in the setting of cirrhosis. Diffuse fatty infiltration of the liver.
Prior GI Procedures:
EGD and Colonoscopy: per pt, 11/2023 at [facility] (will attempt to obtain for review)
Assessment / Plan
-
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
the ED from rehab facility for abdominal pain and distention. Patient is a limited historian so the majority of patient history is obtained from prior records. Patient was previously living in [place], with recent admission at [facility] in November
2023 for similar abdominal pain and states she had both endoscopy and colonoscopy and was diagnosed with Crohn's disease. She does have a prior history of small bowel obstruction, but denies any prior abdominal surgeries. Reportedly, SBO had
previously improved with NGT and resolved without surgical intervention. Patient denies any diarrhea. She never followed up with GI. She has never been on any treatment for Crohn's, other than prednisone. She also has known Hepatitis C, never
treated.
NGT currently in place. Labs in ER reviewed, which showed leukocytosis with WBC count of 17. Lactic acid 2.4. Hemoglobin 10.1, normal MCV, platelets 210. LFTs: T. bili 0.3, AST 70, ALT 42, alk phos 251, and albumin 1.8. PT 17.1, INR 1.42.
C-reactive protein elevated, 33.7. CT of the abdomen and pelvis shows distention of the stomach and duodenum, dilated loops of small bowel and decompressed distal small bowel suggestive of distal small bowel obstruction. She was afebrile in the ER,
but temperature did increase to 100.9 today, 04/01/2024. Blood cultures pending. She has been started on IV antibiotics, Zosyn. Infectious Disease and Surgery have also been consulted.
IMPRESSION / PLAN:
Abdominal Pain, secondary to SBO/partial bowel obstruction/newly diagnosed Crohn's
- NG tube placed in ER
- Surgical consultation
- will obtain old records for review
- with reported recent diagnosis of Crohn's, concern that the obstruction is secondary to underlying Crohn's. Patient will require steroid treatment at some point, but with concern for developing sepsis, will hold off on any steroid treatment
now.
- will obtain quantiferon TB Gold testing, in addition to Hepatitis serologies, anticipating need for biologic therapy for Crohn's in the future
Sepsis
- blood cultures pending
- continue IV Zosyn
- Infectious Disease consultation
Hepatitis C, never treated
- h/o IVDA, currently on Suboxone
- will obtain HCV quantitative viral load
- plan for eventual outpatient Hepatitis C treatment
We will follow.
-
-
Thank you for consultation and allowing me to participate in the patient's care. Please call the farm service consultant GI physician during the after hours with any questions or concerns.
[2024-04-01] MEDS: SUBUTEX 1 MG SL (09:36)
--- NOTE | 2024-04-01 09:37 | W.PN.HOSP.TC ---
Today's Communication/Plan
-
See plan
Assessment / Plan
Assessment / Plan
Impression.
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 Recently diagnosed Crohn's disease presented emergency room with
persistent abdominal pain and fever..
Persistent abdominal pain.
Concern for SBO.
Concern for evolving sepsis (fever, leukocytosis, elevated lactic acid level)
Cirrhosis by records and imaging
Hepatitis C untreated.
Chronic normocytic anemia
Hypoalbuminemia
Opiate use disorder with history of IVDA on Suboxone PLANT AND MACHINERY VALUER.
Plan:
Fever, leukocytosis, lactic acid elevation.
Concern for clinical sepsis
Possible sources, intra-abdominal, bacteremia with left upper extremity PICC line in place on admission, urinary.
Currently stable respiratory status.
Chest x-ray with no infiltrates.
Blood cultures pending.
Broad-spectrum antibiotics per
IV fluid resuscitation.
Reportedly on prednisone 50 mg PLANT AND MACHINERY VALUER? If treatment for Crohn's
Persistent abdominal pain
Concern for SBO.
CT scan in ED with oral contrast only:
1. Significant dilation of the proximal and mid small bowel, measuring up to 6.5 cm in diameter, with relative decompression of the distal small bowel and colon. Findings are suggestive of at least partial small intestinal obstruction, although
well-defined transition point is not appreciated.
2. Small amount of free fluid within the abdomen and pelvis.
3. No evidence of pneumatosis intestinalis or extraluminal air.
4. Mild nodularity of the hepatic contour, a nonspecific finding which may be seen in the setting of cirrhosis. Diffuse fatty infiltration of the liver.
? Partial SBO versus ileus, versus SBP (although minimal amount of free fluid on CT scan imaging)
NG tube placed in ED with normal output.
Exam remains with distended abdomen.
Surgery/GI evaluation.
Ultrasound of the abdomen to assess for ascites with consideration of diagnostic paracentesis
Broad-spectrum antibiotics
N.p.o. after
IV fluids.
Follow lactic acid level
Stop scopolamine.
IV PPI
Cirrhosis by history and imaging (CT scan with hepatic nodularity)
Untreated hepatitis C reported
Additional imaging pending.
Hyperammonemia.
Assess for ascites.
Hold lactulose given concern for SBO
Monitor ammonia level
Given marginal BP and concern for sepsis, hold Lasix and Aldactone
Reported recently diagnosed Crohn's disease.
'If SBO inflammatory in nature. No prior history of surgical interventions.
On prednisone 50 mg daily prior to presentation. Hold for now given acute issues, pending GI evaluation records requested.
Stool calprotectin pending
Requested medical records from recent hospitalization at [facility].
Substance abuse with history of IVDA.
Continue Suboxone sublingual
Full code
DVT prophylaxis hep
Anticipated Discharge: > 48 hours
Subjective/Interval History
-
Date of Service: April 01, 2024
Objective Data
-
Labs:
Laboratory Results
03/31/24 03/31/24 04/01/24
20:53 22:16 07:38
WBC 17.6 H 13.1 H
Hgb 10.0 L 10.3 L
Hct 30.4 L 31.4 L
Plt Count 228 175 D
PT 17.1 H
INR 1.42
Sodium Cancelled 133 L 134 L
Potassium Cancelled 4.5 4.2
Chloride Cancelled 105 106
Carbon Dioxide Cancelled 26 23
BUN Cancelled 13 13
Creatinine Cancelled 0.4 L 0.4 L
Glucose Cancelled 87 86
Calcium Cancelled 7.6 L 7.3 L
Total Bilirubin Cancelled 0.3
AST Cancelled 53 H
ALT Cancelled 41 H
Alkaline Phosphatase Cancelled 216 H
Vital Signs:
Vital Signs
Temp Pulse Resp BP Pulse Ox
98.1 F 100 22 109/91 2
04/01/24 08:00 04/01/24 05:30 04/01/24 05:30 04/01/24 03:34 04/01/24 06:04
Physical Exam
-
General: No Apparent Distress and Appears Chronically Ill
HEENT: Normocephalic, Atraumatic and Moist Mucous Membranes
Respiratory: Decreased Breath Sounds
Cardiac: Regular Rhythm and S1/S2; Negative Murmur, Rub or Gallop
GI: Other (Mildly distended with hypoactive bowel sounds. Diffuse abdominal tenderness without rebound); Negative Organomegaly
Rectal: Deferred by Provider
Musculoskeletal: No Clubbing, No Cyanosis and No Edema
Skin: Negative Rash
Neuro: Other (Somnolent)
[2024-04-01 10:05] LABS: Lactic Acid 1.9 mmol/L (0.7-2.0)
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
--- NOTE | 2024-04-01 10:52 | CON.GS ---
Addendum entered and electronically signed by Dario Unger MD 04/01/24 14:24:
Patient seen and examined.
Patient is a 34 yo F with a PMH of bipolar, hepatitis c, cirrhosis, ulcerative colitis, opioid abuse with prior OD, RUE amputation secondary to injury who presents from SNF with abdominal pain with nausea and vomiting. Father at bedside and
providing some history, although not a clear historian; he does note that she has had no prior abdominal surgeries. Patient mostly nonparticipatory in her care and not providing history. Her father reports history of abdominal pain for over a year.
Recent admission at [facility] for similar symptoms and prior hospitalizations in [place] as well more remotely. Passing a little bit of flatus. BM history unsure. Of note she does not follow with a GI physician for
either her IBD or cirrhosis.
Gen: NAD, somnolent
HEENt: gastric NGT outputs
Abd: soft, tender diffusely, moderate distension, non-peritoneal (no rebound or guarding
Labs and CT scan imaging were reviewed.
Patient is a 34 yo F p/w acute on chronic abdominal pain
Difficult to discern the exact cause for her symptoms. Unlikely to be an adhesive SBO given lack of surgical history and age. No evidence of a hernia on exam or CT scan. Unlikely to be a mass given age. More likely to be related to IBD. Less
likely dysmotility secondary to constipation or narcotic ileus. No plans or indication for surgical intervention at this time. Recommend GI evaluation for further management. If no improvement over the next [address] scan
with oral and IV contrast via the NG tube. All questions answered.
-- No plans for surgical intervention
-- GI consultation for further workup and management of potential IBD
-- OOB as able, minimize narcotics, correct lytes
-- If no clinical improvement in 24 to [address] scan with contrast via G-tube
Original Note:
Medical History
-
Chief Complaint: abdominal pain/vomiting
History of Present Illness:
34 yo female with a h/o bipolar, hepatitis c, ulcerative colitis and opioid abuse with prior OD, RUE amputation secondary to injury who presents from SNF with abdominal pain with nausea and vomiting. Father at bedside and providing some history,
although not a clear historian; he does note that she has had no prior abdominal surgeries. Patient mostly nonparticipatory in her care and not providing history. Her father reports recent admission at [facility] for bowel
obstructions and prior hospitalizations in [place] as well more remotely. Paperwork from prior SNF is primary source of PMH although she reported in the ED that she was recently discharged from SNF and moved home with her father. Patient with NGT in
place currently but with vomiting this morning. Generalized abdominal tenderness present with mild distention. She is mildly tachycardic with low grade fevers (100.9).
Past Medical History
Past Medical History: Other (Opioid abuse/OD, Hepatitis C, ulcerative colitis)
Past Surgical History: Other (RUE amputation)
Social History
Drug: Narcotics (suboxone)
Family History
Family History: Reviewed & Not Pertinent
Allergies / Home Medications
Allergy/AdvReac Type Severity Reaction Status Date / Time
No Known Allergies Allergy Verified 03/31/24 20:28
�Medication �Instructions �Recorded �Confirmed �Type
acetaminophen 500 mg tablet 1,000 mg PO Q8HPRN PRN mild pain 03/30/24 03/31/24 History
ascorbic acid (vitamin C) 500 mg 500 mg PO DAILY 03/30/24 03/31/24 History
tablet (Vitamin C)
bisacodyl 5 mg tablet 5 mg PO DAILYPRN PRN constipation 03/30/24 03/31/24 History
buprenorphine 8 mg-naloxone 2 mg 1 film buccal BID 03/30/24 03/31/24 History
sublingual film (Suboxone)
dicyclomine 10 mg capsule 10 mg PO Q6HPRN PRN treatment of 03/30/24 03/31/24 History
functiona/ibs
docusate sodium 100 mg capsule 100 mg PO BID 03/30/24 03/31/24 History
doxycycline monohydrate 100 mg 100 mg PO BID 03/30/24 03/31/24 History
capsule
enoxaparin 30 mg/0.3 mL 30 mg SC DAILY 03/30/24 03/31/24 History
subcutaneous syringe (Lovenox)
ferrous sulfate 325 mg (65 mg 325 mg PO DAILY 03/30/24 03/31/24 History
iron) tablet
furosemide 20 mg tablet (Lasix) 20 mg PO BID 03/30/24 03/31/24 History
gabapentin 100 mg capsule 100 mg PO Q8 03/30/24 03/31/24 History
lactulose 20 gram/30 mL oral 20 g PO TID 03/30/24 03/31/24 History
solution
lidocaine 4 % topical patch 1 patch topical DAILY left shoulder 03/30/24 03/31/24 History
loperamide 2 mg tablet 2 mg PO Q6HPRN PRN diarrhea 03/30/24 03/31/24 History
magnesium oxide 400 mg PO DAILY 03/30/24 03/31/24 History
mirtazapine 7.5 mg tablet 7.5 mg PO HS 03/30/24 03/31/24 History
naloxone 4 mg/actuation nasal spray 4 mg intranasal Q2MPRN PRN opioid 03/30/24 03/31/24 History
overdose
ondansetron HCl 4 mg tablet 4 mg PO Q8HPRN PRN nausea 03/30/24 03/31/24 History
pantoprazole 40 mg tablet,delayed 40 mg PO DAILY 03/30/24 03/31/24 History
release
potassium chloride 20 mEq 20 meq PO DAILY 03/30/24 03/31/24 History
tablet,extended release
prednisone 50 mg tablet 50 mg PO DAILY 03/30/24 03/31/24 History
quetiapine 25 mg tablet 25 mg PO BID 03/30/24 03/31/24 History
scopolamine base 1 mg over 3 days 1 patch transdermal Q3D 03/30/24 03/31/24 History
transdermal patch
sennosides 8.6 mg tablet (senna) 8.6 mg PO DAILY 03/30/24 03/31/24 History
sodium chloride 0.9 % (flush) 10 ml IV TID 03/30/24 03/31/24 History
(Normal Saline Flush 0.9 %
injection syringe)
spironolactone 50 mg tablet 50 mg PO DAILY 03/30/24 03/31/24 History
(Aldactone)
thiamine HCl (vitamin B1) 100 mg 100 mg PO DAILY 03/30/24 03/31/24 History
tablet
zinc sulfate 50 mg zinc (220 mg) 50 mg PO DAILY 03/30/24 03/31/24 History
capsule
Review of Systems
-
History Source: Patient and Family
All other systems: Negative unless noted
A 10 point review of systems was completed, and was negative except as per HPI.
Physical Exam
Vital Signs
Temp Pulse Resp BP Pulse Ox
98.1 F 100 22 109/91 2
04/01/24 08:00 04/01/24 05:30 04/01/24 05:30 04/01/24 03:34 04/01/24 06:04
03/31/24 04/01/24 04/02/24
06:59 06:59 06:59
Actual Weight 61.6 kg
Body Mass Index (BMI) 25.7
Lab Results
04/01/24 07:38
04/01/24 07:38
WBC 13.1 10^3/uL (4.8-10.8) H 04/01/24 07:38
Hgb 10.3 g/dL (12.0-16.0) L 04/01/24 07:38
Hct 31.4 % (37.0-47.0) L 04/01/24 07:38
Plt Count 175 10^3/uL (130-400) D 04/01/24 07:38
Abs Immat Gran (auto) 0.1 10^3/uL (0-0.05) H 03/31/24 22:16
Neutrophils % 65.6 % (42.2-75.2) 03/31/24 22:16
Physical Exam
General: No Apparent Distress
HEENT: Normocephalic
Respiratory: Non Labored Respirations
GI: Soft, Tender (generalized, mild) and Distended (protruberant)
Skin: Warm
Neuro: Awake; Negative Alert
Data Reviewed
-
CT Scan: Image Personally Visualized and interpreted, Report Reviewed by me, Discussed with Nurse, Discussed with Patient and Discussed with Family
Labs: Labs Reviewed by me, Discussed with Physician and Discussed with Patient
Assessment / Plan
-
34 yo female with ?UC vs Crohn's (history unclear) and recent admissions x2 for SBO at [facility] and [facility] in recent SNF stay presenting with n/v/abdominal pain. CT with significant small bowel distention without well defined transition
point. No evidence of bowel threat compromise. ?Ileus vs sbo vs IBD flare. Mild tachycardia, low grade fevers. +leukocytosis which is improving. UA pending. NGT placed in ED with minimal outputs. CXR shows in good position.
--C/W NGT to wall suction, flushed at bedside as drainage thick: follow outputs
--Continue NPO with ice chips for comfort
--GI consult to evaluate given history of IBD
--Hold laxatives
--Obtain records
No plans for immediate surgical intervention at this time. Will follow with bowel rest and supportive measures
[2024-04-01 15:28] LABS: Hepatitis B Surface Antigen Negative (Negative)
[2024-04-01 15:46] LABS: Hepatitis B Core Ab, Total Negative (Negative); Hepatitis C Antibody Reactive (Negative)
[2024-04-01 16:31] LABS: Hepatitis A Antibody, Total Positive (Negative)
[2024-04-01 16:41] LABS: Hepatitis B Surface Antibody Positive
--- NOTE | 2024-04-01 17:08 | PTCARENOTE ---
Pt moaning, and uncooperative with nursing care. States wants to be left alone. Emotional support given. Will continue to monitor
[2024-04-01 17:39] LABS: Hepatitis A IgM Antibody Negative (Negative)
[2024-04-01] MEDS: SUBUTEX SL (20:17)
[2024-04-01] MEDS: SUBUTEX 8 MG SL (20:18)
[2024-04-01] MEDS: ZOFRAN 4 MG IV (21:29)
[2024-04-01] MEDS: DILAUDID IV (21:32)
[2024-04-01] MEDS: ALBUMIN 5% 250 IV (21:42)
[2024-04-01] MEDS: D5LR IV (21:56)
[2024-04-02] VITALS (27 sets, daily range): BP systolic 81–132; BP diastolic 55–108; PULSE 97; BMI 25.6
--- NOTE | 2024-04-02 01:50 | PTCARENOTE ---
Assumed care of patient at 1900, nursing assessment completed and as documented. Patient with R nare NGT to LIWS, green/brown drainage noted, flushed with tap water per order, see worklist. Patient requesting pain medication for '20/10' pain in
abdomen, BP labile - see vitals, MACHINE SETUP OPERATOR notified and order placed for IV albumin. Albumin and Dilaudid given, see AUG. BP 90/72 post albumin. Patient with episode of vomiting green bilious emesis while NGT in place, reverified placement. Multiple
calls from family members requesting updates but only contact listed is father, no information given at this time. Call ferguson within reach, care ongoing.
[2024-04-02] MEDS: DILAUDID 0.5 MG IV ×4 (02:06→14:16)
[2024-04-02] MEDS: ZOFRAN 4 MG IV (05:07)
[2024-04-02 05:25] LABS: % Basophils 0.2 % (0-2); % Eosinophils 0.1 % (0-6); % Immature Granulocytes 0.5 % (0-0.5); % Monocytes 16.9 % (1.7-9.3); % Neutrophils 59.3 % (42.2-75.2); Absolute Immature Granulocytes 0.1 10^3/uL (0-0.05); Absolute Lymphocytes 2.3 10^3/uL (1.2-3.4); Absolute Monocytes 1.7 10^3/uL (0.1-0.6); Absolute Neutrophils 5.9 10^3/uL (1.4-6.5); Hematocrit 28.3 % (37.0-47.0); Hemoglobin 9.7 g/dL (12.0-16.0); Mean Corp Hgb Conc. 34.3 g/dL (33.0-37.0); Mean Corpuscular Hgb 30.5 pg (27.0-31.0); Mean Platelet Volume 10.9 fL (7.4-10.4); Nucleated Red Blood Cells % 0.4 %; Platelet Count 222 10^3/uL (130-400); Red Blood Cell Count 3.18 10^6/uL (4.20-5.40); Red Cell Dist. Width 18.2 % (11.5-14.5); White Blood Cell Count 9.9 10^3/uL (4.8-10.8)
[2024-04-02 05:37] LABS: ALT (SGPT) 37 U/L (0-35); AST (SGOT) 36 U/L (14-36); Albumin 1.8 g/dl (3.5-5.0); Alkaline Phosphatase 185 U/L (38-126); Ammonia 50 umol/L (9-30); Blood Urea Nitrogen 15 mg/dl (7-17); Calcium 7.6 mg/dl (8.4-10.2); Carbon Dioxide 28 mmol/L (22-30); Chloride 104 mmol/L (98-107); Estimated Creatinine Clearance 100 ml/min; Glucose 92 mg/dl (70-99); Potassium 3.7 mmol/L (3.5-5.1); Sodium 136 mmol/L (135-145); Total Bilirubin 0.9 mg/dl (0.2-1.3); Total Protein 4.2 g/dl (6.3-8.2); eGFR > 60.00
[2024-04-02] MEDS: ZOSYN 50 IV ×3 (06:29→18:29)
--- NOTE | 2024-04-02 06:55 | PTCARENOTE ---
During shift change at 0653 pt with several runs of VT a triplet followed by several 10 beat, 8 beat then 6 beat runs and several additional triplets-see strips. Pt asymptomatic- admits that chest is sore but no different than earlier and is
generally uncomfortable. Denies shortness of breath. O2 sats on 2l are 100%. Magnesium level added to AM bloodwork. If continues will notify Currently in NSR in the 's.
--- NOTE | 2024-04-02 07:35 | W.PN.ID1 ---
Date of Service
Date of Service: April 02, 2024
Today's Communication
Continue Zosyn for today.
Assessment / Plan
Leukocytosis
Partial SBO
Profound protein calorie malnutrition
Anemia
Lactic acidosis
Reported history hep C
Transaminitis
Elevated CRP
Generalized deconditioning
Hx substance abuse
GERD
Hx Crohn's disease
Hx of cirrhosis
Recommendations:
White count normalized today.
Continue with empiric Zosyn for the present.
Monitor white count and temperature curve.
Follow pending cultures.
Monitor abdominal distention clinically.
Continue NG to suction.
If cultures remain negative and white count remains normal, may be able to de-escalate/discontinue antibiotics in the next 24 to 48 hours.
����������������������������������������������������������
Chief Complaint
-: Leukocytosis
Subjective / Review of Systems
Patient seen and examined. No significant changes overnight.
Review of Systems: No Fever
Vital Signs / Physical Exam
Vital Signs
Vital Signs
Temp Pulse Resp BP Pulse Ox
97.9 F 85 15 91/68 88
04/02/24 05:07 04/02/24 07:00 04/02/24 07:00 04/02/24 07:00 04/02/24 05:06
Physical Exam
Constitutional: Acutely Ill, Chronically Ill and Non-toxic
Head: Normocephalic
Eyes: No Conjunctival Hemorrhage and Sclera Anicteric
Oropharyngeal: Other (NG tube in place.)
Cardiovascular: S1/S2; Negative S3/S4
Pulmonary: Clear; Negative Wheezes or Rales
Gastrointestinal: Non Distended, Decreased Bowel Sounds, No Rebound and No Guarding
Extremities: Edema (3+ bilateral lower extremities); Negative Cyanosis or Erythema
Skin: Warm and Dry; Negative Rash
Objective Data
Lab Data
Lab Results
04/02/24 04:55
04/02/24 04:55
PT 17.1 Sec (11.4-14.6) H 04/01/24 07:38
INR 1.42 04/01/24 07:38
Estimated Creat Clear 100 ml/min 04/02/24 04:55
Lactic Acid Cancelled 04/01/24 21:00
Total Bilirubin 0.9 mg/dl (0.2-1.3) 04/02/24 04:55
AST 36 U/L (14-36) 04/02/24 04:55
ALT 37 U/L (0-35) H 04/02/24 04:55
Alkaline Phosphatase 185 U/L (38-126) H 04/02/24 04:55
C-Reactive Protein 33.70 mg/L (0.0-10.00) H 04/01/24 07:38
Most recent labs reviewed.
Micro Results:
04/01/24 03:26 Blood Culture - Preliminary
Blood/Venous No Growth in 24 hours- Final report to follow
04/01/24 03:26 Blood Culture - Preliminary
Blood/Venous No Growth in 24 hours- Final report to follow
04/01/24 12:52 MRSA Screen - Pending
Nose
Imaging:
03/31/2024 CT abdomen/pelvis with oral contrast: There is significant dilation of the proximal and mid small bowel (measuring up to 6.5 cm in diameter) with relative decompression of the distal small bowel and colon. Findings are suggestive of at
least partial SBO, although well-defined transition point not appreciated. There is a small amount of free fluid within the abdomen and pelvis. No evidence of pneumatosis intestinalis or extraluminal air. There is mild nodularity of the hepatic
contour which is a nonspecific finding and may be seen in the setting of cirrhosis. There is diffuse fatty infiltration of the liver. Please see full dictation for additional detail.
[2024-04-02 07:39] LABS: Magnesium 1.7 mg/dl (1.6-2.3)
[2024-04-02] MEDS: PROTONIX IV 40 MG IV (07:51)
[2024-04-02] MEDS: NSS (PRESERVATIVE FREE) 10 ML IV (07:52)
[2024-04-02] MEDS: HEPARIN 5000 UNITS SC (07:52)
[2024-04-02] MEDS: LIDOCAINE 4% PATCH TOPICAL ×2 (07:53→08:04)
[2024-04-02] MEDS: THIAMINE INJECTION 100 MG IV (07:53)
--- NOTE | 2024-04-02 08:30 | PTCARENOTE ---
Pt with some isolated PVC and couplets- no further runs of VT. Overall rec'd pt resting in bed with eyes shut. Will immediately moan when stimulated and request to be left alone.Will follow basic commands but does not interact otherwise and just
keeps her eyes closed. Stated earlier Dilaudid helped minimally but that she still has abd pain. Moans whenever she is touched -not only on her abd but when her legs were moved as well. Refuses or is irritated when care is performed stating 'Just
leave me alone'. Refused her Lidoderm patch and did not want her Subutex 'at this time'. BOND but weakly. Intially stated she could not move her feet when asked but then was seen very slightly moving them on her own. +2 LE edema noted. Skin is pale
wm and dry. Pt with multiple scabbed areas on extremities. Healing scars noted. Respirs are shallow but non-labored. Rec'd pt intially on 2L nc with sats of 100%%- changed at 0800 to RA with sats of 98%. BS in general are sl decreased throughout.
Monitor SR with isolated PVC's and a rare couplet noted. VS as documented. + pulses. PT and DP pulses with the doppler. Admits to mild chest soreness but states it is the same as when she came in. Abd is distended and tender throughout to palpation
with hypoactive BS. R dagoberto Benitez NG at 60 cm gina to intermittent suction. Irrigated without difficulty with tap water as ordered and is draining greenish drainage. Denies need to void currently- just voided on previous shift. IV D5LR infusing at
30 ml/hr via L arm SL PICC-site wnl. Mouth care given and pt repositioned slightly as she refuses most care. Plan of care reviewed with pt and call ferguson in reach.
[2024-04-02] MEDS: SUBUTEX SL (09:00)
--- NOTE | 2024-04-02 09:40 | PTCARENOTE ---
Surgery in to see pt and abd x ray taken
--- NOTE | 2024-04-02 09:51 | W.PN.HOSP.TC ---
Today's Communication/Plan
-
Start TPN
Continue IV fluids, NG tube, IV steroids, IV antibiotics
Assessment / Plan
Assessment / Plan
Impression.
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 Recently diagnosed Crohn's disease presented emergency room with
persistent abdominal pain and fever..
Persistent abdominal pain.
Concern for SBO.
Concern for evolving sepsis (fever, leukocytosis, elevated lactic acid level)
Cirrhosis by records and imaging
Hepatitis C untreated.
Chronic normocytic anemia
Hypoalbuminemia
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
Plan:
Fever, leukocytosis, lactic acid elevation.
Concern for clinical sepsis
Possible sources, intra-abdominal, bacteremia with left upper extremity PICC line in place on admission, urinary.
Currently stable respiratory status.
Chest x-ray with no infiltrates.
Blood cultures pending.
Broad-spectrum antibiotics per
IV fluid resuscitation.
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 If treatment for Crohn's
Persistent abdominal pain
Concern for SBO.
CT scan in ED with oral contrast only:
1. Significant dilation of the proximal and mid small bowel, measuring up to 6.5 cm in diameter, with relative decompression of the distal small bowel and colon. Findings are suggestive of at least partial small intestinal obstruction, although
well-defined transition point is not appreciated.
2. Small amount of free fluid within the abdomen and pelvis.
3. No evidence of pneumatosis intestinalis or extraluminal air.
4. Mild nodularity of the hepatic contour, a nonspecific finding which may be seen in the setting of cirrhosis. Diffuse fatty infiltration of the liver.
? Partial SBO versus ileus, versus SBP (although minimal amount of free fluid on CT scan imaging)
Ultrasound of the abdomen to assess for ascites with consideration of diagnostic paracentesis
Appreciate general surgery input, continue NG tube, n.p.o., IV fluids, IV antibiotics
04/02 plan to start TPN tonight
Follow lactic acid level
Stop scopolamine.
IV PPI
Cirrhosis by history and imaging (CT scan with hepatic nodularity)
Untreated hepatitis C reported
Additional imaging pending.
Hyperammonemia.
Assess for ascites.
Hold lactulose given concern for SBO
Monitor ammonia level
Given marginal BP and concern for sepsis, hold Lasix and Aldactone
Reported recently diagnosed Crohn's disease.
'If SBO inflammatory in nature. No prior history of surgical interventions.
On prednisone 50 mg daily prior to presentation. Hold for now given acute issues, pending GI evaluation records requested.
Stool calprotectin pending. 04/02 Started on IV steroids by GI. Blood cultures neg
Requested medical records from recent hospitalization at [facility].
Substance abuse with history of IVDA.
Continue Suboxone sublingual
DVT prophylaxis�subcu Lovenox
Full code
Total time spent to see the patient on the floor, examine the patient, review data and lab results, discuss treatment plan with patient, nursing staff around 50 minutes.
Physical Exam
General: Appears disheveled, no acute distress
HEENT: Normocephalic, Atraumatic, EOMI, MMM
Respiratory: Clear to Auscultation bilaterally
Cardiac: Normal S1/S2, Regular Rate and Rhythm
GI: Soft, Nontender, Nondistended, Normal Bowel Sounds
Extremities: No Clubbing, Cyanosis
3+ bilateral lower extremity edema noted
Right upper extremity amputation noted
Neuro: Nonfocal/Grossly Intact
Anticipated Discharge: > 48 hours
Subjective/Interval History
-
Date of Service: April 02, 2024
Patient reports nausea and abdominal pain. She has not passed gas, no stools. No fever, no vomiting.
Objective Data
-
Labs:
Laboratory Results
04/02/24
04:55
WBC 9.9
Hgb 9.7 L
Hct 28.3 L
Plt Count 222 D
Sodium 136
Potassium 3.7
Chloride 104
Carbon Dioxide 28
BUN 15
Creatinine 0.4 L
Glucose 92
Calcium 7.6 L
Total Bilirubin 0.9
AST 36
ALT 37 H
Alkaline Phosphatase 185 H
Vital Signs:
Vital Signs
Temp Pulse Resp BP Pulse Ox
98.8 F 110 17 102/80 97
04/02/24 08:03 04/02/24 09:00 04/02/24 09:00 04/02/24 09:00 04/02/24 09:00
I&O
04/01/24 04/02/24 04/03/24
06:59 06:59 06:59
Intake Total 1030 / 1060 120 / 120
Output Total 900 / 900
Balance 130 / 160 120 / 120
[2024-04-02] MEDS: SOLU-MEDROL PF 20 MG IV ×2 (10:37→17:25)
[2024-04-02] MEDS: FLUSH (NSS) 1 FLUSH IV ×2 (10:38→14:17)
--- NOTE | 2024-04-02 11:00 | PTCARENOTE ---
Pt remedicated with Dilaudid 0.5 mg IV at 1040 for 10/10 generalized abd pain- describes it as a cramping discomfort. Solumedrol 20 mg IV given as ordered. Pt has had outstanding urine studies and has not voided since earlier. Bladder scanned for
138 mls- tried to use the bedpan but unable. St Cathed for 170 mls of fallon urine. Urine studies sent as ordered. Pt repositioned. Skin care given although pt moans and says just let me alone. Almost always has her eyes shut but when asked specific
questions is oriented-just wants to be left alone.
[2024-04-02 11:35] LABS: Urine Albumin Trace (Neg - Trace); Urine Bilirubin 1+ (Negative); Urine Character Clear (Clear); Urine Color Yellow; Urine Glucose Negative (Negative); Urine Ketone Trace (Negative); Urine Leukocyte Trace (Negative); Urine Nitrite Negative (Negative); Urine Occult Blood Negative (Negative); Urine Specific Gravity 1.025 (<1.030); Urine Urobilinogen Negative (Neg - 1+)
--- NOTE | 2024-04-02 11:49 | W.PN.GI.CBS2 ---
Today's Communication / Plan
-
Abdominal Pain, secondary to SBO/partial bowel obstruction/newly diagnosed Crohn's
-Abdominal pain, nausea and vomiting, currently decompressed with NG tube
Reported history of inflammatory bowel disease, questionable Crohn's diagnosed in November 2023 at [facility] for similar presentation.
- NG tube with 650 mL of bilious material. Had small bowel movement but continues to have abdominal pain. No fevers or leukocytosis.
Given persistent abdominal pain and continued biliary drainage, will start Solu-Medrol 20 mg every 8 hours for possible small bowel.
Blood cultures negative so far. Currently on antibiotics per ID. ID okayed starting the steroids.
Continue n.p.o. and monitor electrolytes and replete.
No evidence of bowel wall thickening noted on the CT scan at this time.
Await records from [facility] to review.
-History of hepatitis C, untreated. No evidence of decompensation at this time.
Hepatitis B surface antigen negative but antibody positive suggesting immunity. Hepatitis A antibody total positive as well. Hepatitis C antibody is reactive, await HCV RNA.
Alert oriented x 3. No evidence of asterixis.
Noted elevation in the movement which does not correlate with hepatic encephalopathy and clinically she is not behaving like hepatic encephalopathy.
Will need outpatient hepatology follow-up for treatment of hepatitis C.
Will follow-up
Assessment / Plan
-
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
the ED from rehab facility for abdominal pain and distention. Patient is a limited historian so the majority of patient history is obtained from prior records. Patient was previously living in [place], with recent admission at [facility] in November
2023 for similar abdominal pain and states she had both endoscopy and colonoscopy and was diagnosed with Crohn's disease. She does have a prior history of small bowel obstruction, but denies any prior abdominal surgeries. Reportedly, SBO had
previously improved with NGT and resolved without surgical intervention. Patient denies any diarrhea. She never followed up with GI. She has never been on any treatment for Crohn's, other than prednisone. She also has known Hepatitis C, never
treated.
NGT currently in place. Labs in ER reviewed, which showed leukocytosis with WBC count of 17. Lactic acid 2.4. Hemoglobin 10.1, normal MCV, platelets 210. LFTs: T. bili 0.3, AST 70, ALT 42, alk phos 251, and albumin 1.8. PT 17.1, INR 1.42.
C-reactive protein elevated, 33.7. CT of the abdomen and pelvis shows distention of the stomach and duodenum, dilated loops of small bowel and decompressed distal small bowel suggestive of distal small bowel obstruction. She was afebrile in the ER,
but temperature did increase to 100.9 today, 04/01/2024. Blood cultures pending. She has been started on IV antibiotics, Zosyn. Infectious Disease and Surgery have also been consulted.
IMPRESSION / PLAN:
Abdominal Pain, secondary to SBO/partial bowel obstruction/newly diagnosed Crohn's
-Abdominal pain, nausea and vomiting, currently decompressed with NG tube
Reported history of inflammatory bowel disease, questionable Crohn's diagnosed in November 2023 at [facility] for similar presentation.
- NG tube with 650 mL of bilious material. Had small bowel movement but continues to have abdominal pain. No fevers or leukocytosis.
Given persistent abdominal pain and continued biliary drainage, will start Solu-Medrol 20 mg every 8 hours for possible small bowel.
Blood cultures negative so far. Currently on antibiotics per ID. ID okayed starting the steroids.
Continue n.p.o. and monitor electrolytes and replete.
No evidence of bowel wall thickening noted on the CT scan at this time.
Await records from [facility] to review.
-History of hepatitis C, untreated. No evidence of decompensation at this time.
Hepatitis B surface antigen negative but antibody positive suggesting immunity. Hepatitis A antibody total positive as well. Hepatitis C antibody is reactive, await HCV RNA.
Alert oriented x 3. No evidence of asterixis.
Noted elevation in the movement which does not correlate with hepatic encephalopathy and clinically she is not behaving like hepatic encephalopathy.
Will need outpatient hepatology follow-up for treatment of hepatitis C.
Will follow-up
Subjective
Subjective
Date of Service: April 02, 2024
Patient put out about 650 mL of bilious material overnight, small bowel movement. Continues to complain of abdominal pain. Needing narcotics. No fevers or chills. Alert oriented x 3 without any asterixis.
Objective
Data Reviewed
Laboratory Data:
Laboratory Results
04/02/24 04:55
04/02/24 04:55
Laboratory Results
PT 17.1 Sec (11.4-14.6) H 04/01/24 07:38
INR 1.42 04/01/24 07:38
Magnesium 1.7 mg/dl (1.6-2.3) 04/02/24 04:55
Total Bilirubin 0.9 mg/dl (0.2-1.3) 04/02/24 04:55
AST 36 U/L (14-36) 04/02/24 04:55
ALT 37 U/L (0-35) H 04/02/24 04:55
Alkaline Phosphatase 185 U/L (38-126) H 04/02/24 04:55
Lipase 18 U/L (23-300) L 03/31/24 22:16
Vital Signs and I&O:
Vital Signs
Temp Pulse Resp BP Pulse Ox
98.2 F 107 12 96/66 94
04/02/24 11:29 04/02/24 11:00 04/02/24 11:00 04/02/24 11:00 04/02/24 10:07
I&O
04/01/24 04/02/24 04/03/24
06:59 06:59 06:59
Intake Total 1030 / 1060 180 / 180
Output Total 900 / 900 170 / 170
Balance 130 / 160 10 / 10
Physical Exam
Physical Exam
GI: Soft and Distended (Discomfort on palpation in the mid abdomen, bowel sounds noted)
Extremities: Edema
[2024-04-02 11:51] LABS: Cocaine Positive (Negative); Opiates Positive (Negative)
[2024-04-02 11:52] LABS: Amphetamines Negative (Negative); Barbiturates Negative (Negative); Benzodiazepines Positive (Negative); Buprenorphine Positive (Negative); Marijuana Negative (Negative); Methadone Negative (Negative); Methamphetamines Negative (Negative); Phencyclidine Negative (Negative); Tricyclic Antidepressants Negative (Negative)
[2024-04-02 12:11] LABS: Fentanyl, Urine Positive (Negative)
--- NOTE | 2024-04-02 13:45 | PTCARENOTE ---
Pt in general is currently more wakeful as her father is with her at the bedside. Physical therapy in and worked extensively with the [facility]. See notes. She has bilateral foot drop but worked with moving her legs. Sat pt on the side of the bed for 10
minutes and pt was able to hold herself in place. Pt states she normally needs a lift device to get oob since being at the nursing facilities. Does c/o abd pain and some generalized pain- but mostly abdomen. Currently resting back in bed. Cushioned
heal protectors placed on pt. Call ferguson in reach. After oK given by surgery pt given 2 ice chips and instructed that they are just for comfort/moisture and to be used sparingly. Verbalized understanding. Mouth and skin care given.
--- NOTE | 2024-04-02 13:55 | W.PN.GS2 ---
Addendum entered and electronically signed by Sonny Griffiths MD 04/02/24 15:26:
I saw and examined the patient.
The ASSEMBLER [employer]STALL[employer]'s note was reviewed and I agree with the note.
Comment:
No overnight events. Patient somewhat somnolent but responding to questions. Complains of abdominal pain and bloating with some nausea, but no vomits. Still with NGT in place. Had small brown BM.
AFVSS, ABD soft, mildly to moderately distended, moderately diffusely tender, no rebound or guarding, NGT�900 mL bilious,
WBC 9.9 from 13.1, Hb stable, CR 0.4, lactate 1.9, prealbumin 6.3
�Reported history of Crohn's, current clinical picture with small bowel obstruction and elevated CRP, concerning for Crohn's flare
�Recommend starting IV steroids as this is likely her most pressing issue; if not treated promptly, will likely require emergency surgery
�Awaiting outside records to confirm previous workup, treatment and diagnosis
�Appreciate GI
�Recommend MRE versus CTE to evaluate for small bowel disease, such as inflammatory/fibrotic stricture
�Will need close monitoring of clinical status; if worsening of pain or hemodynamics, please call surgery promptly
� Continue n.p.o. with NGT; recommend initiating TPN with placement of PICC
� Continue antibiotics per ID; blood cultures negative so far, leukocytosis resolved
� Appreciate hospitalist
Original Note:
Today's Communication / Plan
-
NGT to LIWS
IV Steroids as per GI
Start TPN
Assessment / Plan
-
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
grade temps
Recent admission at [facility] where she reportedly had EGD/colonoscopy: records requested but not yet received
Recently left SNF ([facility]) to live with family
Difficult to discern the exact cause for her symptoms. Unlikely to be an adhesive SBO given lack of surgical history and age. No evidence of a hernia on exam or CT scan. Unlikely to be a mass given age. More likely to be related to IBD. Less
likely dysmotility secondary to constipation or narcotic ileus.
XR stable this am (no real improvement but no worse)
VSS, no further fevers
UDS remarkable for multiple illicit substances: fentanyl, oxycodone, cocaine, benzos, marijuana in addition to expected buprenorphine and opioid (dilaudid)
Severe protein calorie malnutrition noted with prealbumin of 6.3 on arrival
Plan:
--GI and ID following, Ok to initiate steroids
--C/W NGT to wall suction/NPO with ice chips for comfort
--Plan to start TPN, discussed with agricultural produce washer. Place PICC.
--Supportive measures
--Medical management as per primary team
No plans or indication for surgical intervention at this time. If no improvement over the next 24-[address] scan with oral and IV contrast via the NG tube.
Subjective Data
-
Date of Service: April 02, 2024
Patient seen and examined at bedside with Dr. Griffiths this am around 8:30am. Patient moans in pain when examined, minimally communicative. Reports ongoing nausea and that she vomited overnight.
Objective Data
-
Intake and Output
04/01/24 04/02/24 04/03/24
06:59 06:59 06:59
Intake Total 1030 / 1060 320 / 320
Output Total 900 / 900 170 / 170
Balance 130 / 160 150 / 150
Intake:
Oral fluids 0 / 0
IV fluids (Total) 630 / 660 210 / 210
D5lr 1,000 ml @ 30 mls/hr IV . 630 / 630
Q24H [facility] Rx#:[id number]
D5lr 500 ml @ 30 mls/hr IV . 210 / 210
[id number] [facility] Rx#:[id number]
IV piggybacks 250 / 250 50 / 50
Amount instilled into GI Tube ( 150 / 150 60 / 60
Total)
[place] Sump 150 / 150 60 / 60
Output:
Gastrointestinal tube output ( 900 / 900
Total)
[place] Sump 900 / 900
Urine, Voided 0 / 0
Straight cath output 170 / 170
Other:
Number of approximated LARGE 1
amounts of urine
Vital Signs
Temp Pulse Resp BP Pulse Ox
98.2 F 100 17 90/67 97
04/02/24 11:29 04/02/24 12:00 04/02/24 12:00 04/02/24 12:00 04/02/24 12:00
Lab Results
04/02/24 04:55
04/02/24 04:55
Calcium 7.6 mg/dl (8.4-10.2) L 04/02/24 04:55
Magnesium 1.7 mg/dl (1.6-2.3) 04/02/24 04:55
Total Bilirubin 0.9 mg/dl (0.2-1.3) 04/02/24 04:55
AST 36 U/L (14-36) 04/02/24 04:55
ALT 37 U/L (0-35) H 04/02/24 04:55
Alkaline Phosphatase 185 U/L (38-126) H 04/02/24 04:55
Total Protein 4.2 g/dl (6.3-8.2) L 04/02/24 04:55
Albumin 1.8 g/dl (3.5-5.0) L 04/02/24 04:55
Physical Exam
-
Somnolent
ABD distended, tender to light palpation, NGT with bilious outputs
--- NOTE | 2024-04-02 14:25 | PTCARENOTE ---
Pt remedicated with Dilaudid 0.5 mg IV at 1420 for c/o 10/10 abd pain. Offered pt IV Aceteminophen in between a Dilaudid dose but pt states she cannot take it with her Chron's and was hoping to have a little higher Dilaudid dose as the 0.5 mg dose
does not seem to relieve the pain significantly. Will update Dr. Arzola. Currently IV team here to replace PICC as pt is to go on TPN tonight. Pt overall is much more awake and interactive since her father arrived and she worked with PT.
--- NOTE | 2024-04-02 16:00 | PTCARENOTE ---
Resting. Overall assessment is unchanged and has been more awake this afternoon. Was incont of a small amt of soft brown stool. Pt feels like she has to move her bowels and 'needs a laxative'. Reached out to surgery who prefers to wait on a
suppository or laxative currently. Respirs are unlabored. Still admits to abd tenderness/discomfort no increase from earlier, did say that overall the pain medication only reduces the pain slightly. Dr. Arzola aware and Dilaudid dose increased. Pt st
cathed earlier to obtain urine studies. Has not voided or felt the need since. Bladder scanned for 28 mls although somewhat difficult to locate bladder- abd remains distended. PICC placement confirmed- NSS hung at 30 mls/hr. Repositioned. Call ferguson
in reach.
[2024-04-02] MEDS: NSS 1000 IV (16:13)
[2024-04-02 16:55] LABS: Phosphorus 3.5 mg/dl (2.5-4.5); Triglycerides 56 mg/dl (10-149)
[2024-04-02 17:29] LABS: Glucose - Point of Care 81 mg/dl (70-99)
[2024-04-02] MEDS: LOVENOX 40 MG SC (18:28)
[2024-04-02] MEDS: DILAUDID 1 MG IV ×2 (18:29→22:41)
--- NOTE | 2024-04-02 18:37 | PTCARENOTE ---
Remedicated with Dilaudid 1 mg IV for 8/10 abd pain. Currently lying on her R side trying to move her bowels. Otherwise playing on her IPAD and overall more wakeful and conversant.
[2024-04-02] MEDS: SUBUTEX 8 MG SL (19:55)
[2024-04-02] MEDS: Parenteral Nutrition, Central 900 IV (21:04)
[2024-04-03] VITALS (17 sets, daily range): BP systolic 80–158; BP diastolic 54–102; PULSE 90–113; O2SAT 100; BMI 25.4
[2024-04-03] MEDS: ZOSYN 50 IV ×2 (00:03→05:19)
[2024-04-03 00:14] LABS: Glucose - Point of Care 123 mg/dl (70-99)
[2024-04-03] MEDS: SOLU-MEDROL PF 20 MG IV ×3 (01:19→17:42)
[2024-04-03] MEDS: DILAUDID 1 MG IV ×5 (03:25→20:17)
[2024-04-03 06:10] LABS: Glucose - Point of Care 151 mg/dl (70-99)
[2024-04-03 06:14] LABS: Blood Urea Nitrogen 13 mg/dl (7-17); Calcium 7.2 mg/dl (8.4-10.2); Carbon Dioxide 28 mmol/L (22-30); Chloride 105 mmol/L (98-107); Estimated Creatinine Clearance 100 ml/min; Glucose 147 mg/dl (70-99); Magnesium 1.9 mg/dl (1.6-2.3); Phosphorus 2.9 mg/dl (2.5-4.5); Potassium 3.5 mmol/L (3.5-5.1); Sodium 138 mmol/L (135-145); eGFR > 60.00
[2024-04-03] MEDS: LIDOCAINE 4% PATCH 1 PATCH TOPICAL (07:30)
[2024-04-03] MEDS: NSS (PRESERVATIVE FREE) 10 ML IV (07:32)
[2024-04-03] MEDS: SUBUTEX 8 MG SL ×2 (07:32→20:03)
[2024-04-03] MEDS: THIAMINE INJECTION 100 MG IV (07:32)
[2024-04-03] MEDS: PROTONIX IV 40 MG IV (07:32)
[2024-04-03] MEDS: FLUSH (NSS) 1 FLUSH IV (07:33)
--- NOTE | 2024-04-03 08:16 | W.PN.HOSP.TC ---
Today's Communication/Plan
-
see bold
Assessment / Plan
Assessment / Plan
Impression.
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 Recently diagnosed Crohn's disease presented emergency room with
persistent abdominal pain and fever..
Persistent abdominal pain.
Concern for SBO.
Concern for evolving sepsis (fever, leukocytosis, elevated lactic acid level)
Cirrhosis by records and imaging
Hepatitis C untreated.
Chronic normocytic anemia
Hypoalbuminemia
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
Plan:
Fever, leukocytosis, lactic acid elevation.
Concern for clinical sepsis
Possible sources, intra-abdominal, bacteremia with left upper extremity PICC line in place on admission, urinary.
Currently stable respiratory status.
Chest x-ray with no infiltrates.
Blood cultures pending.
Broad-spectrum antibiotics per
IV fluid resuscitation.
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 If treatment for Crohn's
Persistent abdominal pain
Concern for SBO.
CT scan in ED with oral contrast only:
1. Significant dilation of the proximal and mid small bowel, measuring up to 6.5 cm in diameter, with relative decompression of the distal small bowel and colon. Findings are suggestive of at least partial small intestinal obstruction, although
well-defined transition point is not appreciated.
2. Small amount of free fluid within the abdomen and pelvis.
3. No evidence of pneumatosis intestinalis or extraluminal air.
4. Mild nodularity of the hepatic contour, a nonspecific finding which may be seen in the setting of cirrhosis. Diffuse fatty infiltration of the liver.
? Partial SBO versus ileus, versus SBP (although minimal amount of free fluid on CT scan imaging)
Ultrasound of the abdomen to assess for ascites with consideration of diagnostic paracentesis
Appreciate general surgery input, continue NG tube, n.p.o., IV fluids, IV antibiotics
04/02 Started on TPN, continue as per surg. Rec MRE vs CTE to evaluate for strictures of the small bowel
Stop scopolamine.
IV PPI
Cirrhosis by history and imaging (CT scan with hepatic nodularity)
Untreated hepatitis C reported
Additional imaging pending.
Hyperammonemia.
Assess for ascites.
Hold lactulose given concern for SBO
Monitor ammonia level
Given marginal BP and concern for sepsis, hold Lasix and Aldactone
Reported recently diagnosed Crohn's disease.
'If SBO inflammatory in nature. No prior history of surgical interventions.
On prednisone 50 mg daily prior to presentation. Hold for now given acute issues, pending GI evaluation records requested.
Stool calprotectin pending. 04/02 Started on IV steroids by GI. Blood cultures neg
Awaitingmedical records from recent hospitalization at [facility].
Substance abuse with history of IVDA.
Continue Suboxone sublingual
DVT prophylaxis�subcu Lovenox
Full code
Total time spent to see the patient on the floor, examine the patient, review data and lab results, discuss treatment plan with patient, nursing staff around 40 minutes.
Physical Exam
General: Appears disheveled, no acute distress
HEENT: Normocephalic, Atraumatic, EOMI, MMM
Respiratory: Clear to Auscultation bilaterally
Cardiac: Normal S1/S2, Regular Rate and Rhythm
GI: Soft, Nontender, Nondistended, Normal Bowel Sounds
Extremities: No Clubbing, Cyanosis
3+ bilateral lower extremity edema noted
Right upper extremity amputation noted
Neuro: Nonfocal/Grossly Intact
Anticipated Discharge: > 48 hours
Subjective/Interval History
-
Date of Service: April 03, 2024
Patient reports feeling better. Abdominal pain resolved. No vomiting. No chest pain. No shortness of breath, no fever.
Objective Data
-
Labs:
Laboratory Results
04/03/24
05:31
Sodium 138
Potassium 3.5
Chloride 105
Carbon Dioxide 28
BUN 13
Creatinine 0.4 L
Glucose 147 H
Calcium 7.2 L
Vital Signs:
Vital Signs
Temp Pulse Resp BP Pulse Ox
98.9 F 68 17 85/54 97
04/03/24 00:09 04/03/24 06:00 04/03/24 06:00 04/03/24 06:00 04/03/24 05:00
I&O
04/02/24 04/03/24 04/04/24
06:59 06:59 06:59
Intake Total 1030 / 1060 1420 / 1420
Output Total 900 / 900 720 / 720
Balance 130 / 160 700 / 700
[2024-04-03] MEDS: NSS 1000 IV ×3 (08:57→21:12)
--- NOTE | 2024-04-03 09:00 | PTCARENOTE ---
Several BP readings in the 80-90's syst. Per Surgery order-NSS 1000 ml bolus hung over 1 hr via L arm DL picc then will increase IV fluids to 87 ml/hr. TPN as ordered.
--- NOTE | 2024-04-03 09:15 | PTCARENOTE ---
Rec'd pt at 0730 awake and alert resting in bed asking for pain medicine for 10/10 abd pain. Medicated at 0735 with Dilaudid 1 mg IV. Pt awake playing on IPAD this am and continues to be interactive. Still admits to abd pain but does not say that it
is worse. States she was able to get a little sleep last night. Speech is clear. No c/o dizziness or headache. Skin is sl pale and warm. Pt with several scabbed areas. Foam dressings on heels. Scabbed area on R first toe. R upper arm stump with
small dry open area-see wound documentation. Upper thighs do intermittently weep serous fluid. Respirs are shallow but unlabored on RA with sats of 98%. BS are sl decreased throughout. Monitor SR. +1 gen anasarca and +2 LE edema. VS as documented.
Abd is round and distended with + BS-more active today. R nare salem NG to low int suction- 60 cm gina. Placement auscultated. Irrigated with tap water without diff. Draining greenish drainage. Denies nausea. Denies need to void. IV TPN at 38 ml/hr
and NSS at 30 ml/hr infusing via L arm DL picc. Site wnl. Pt repositioned. Plan of care reviewed. Call ferguson within reach. Pt does need encouragement to do activities.
--- NOTE | 2024-04-03 09:28 | W.PN.ID1 ---
Date of Service
Date of Service: April 03, 2024
Today's Communication
Continue antibiotics. Narrow to Unasyn. See below�
Assessment / Plan
Leukocytosis
Partial SBO
Profound protein calorie malnutrition
Anemia
Lactic acidosis
Reported history hep C
Transaminitis
Elevated CRP
Generalized deconditioning
Hx substance abuse
GERD
Hx Crohn's disease
Hx of cirrhosis
Recommendations:
White count stable.
Patient started on steroids yesterday.
Will continue to monitor white count and temperature curve.
Follow pending cultures.
Monitor abdominal distention clinically.
Continue NG to suction.
Will narrow to Unasyn for today with possible further de-escalation over next 24 hours.
����������������������������������������������������������
Chief Complaint
-: Leukocytosis
Subjective / Review of Systems
Patient seen and examined. Much more awake and alert today. NG tube remains in place. Notes only mild abdominal discomfort. Nursing reports bowel movement overnight.
Review of Systems: No Fever and No Chills
Vital Signs / Physical Exam
Vital Signs
Vital Signs
Temp Pulse Resp BP Pulse Ox
98.9 F 68 17 85/54 97
04/03/24 00:09 04/03/24 06:00 04/03/24 06:00 04/03/24 06:00 04/03/24 05:00
Physical Exam
Constitutional: Acutely Ill, Chronically Ill and Non-toxic
Head: Normocephalic
Eyes: No Conjunctival Hemorrhage and Sclera Anicteric
Oropharyngeal: Other (NG tube in place.)
Cardiovascular: S1/S2; Negative S3/S4
Pulmonary: Clear; Negative Wheezes or Rales
Gastrointestinal: Non Distended, Decreased Bowel Sounds, No Rebound and No Guarding
Extremities: Edema (3+ bilateral lower extremities); Negative Cyanosis or Erythema
Skin: Warm and Dry; Negative Rash
Neurological: Awake and Alert
Psychological: Calm
Objective Data
Lab Data
Lab Results
04/02/24 04:55
04/03/24 05:31
PT 17.1 Sec (11.4-14.6) H 04/01/24 07:38
INR 1.42 04/01/24 07:38
Estimated Creat Clear 100 ml/min 04/03/24 05:31
Lactic Acid Cancelled 04/01/24 21:00
Total Bilirubin 0.9 mg/dl (0.2-1.3) 04/02/24 04:55
AST 36 U/L (14-36) 04/02/24 04:55
ALT 37 U/L (0-35) H 04/02/24 04:55
Alkaline Phosphatase 185 U/L (38-126) H 04/02/24 04:55
C-Reactive Protein 74.20 mg/L (0.0-10.00) H 04/03/24 05:31
Most recent labs reviewed.
Micro Results:
04/01/24 03:26 Blood Culture - Preliminary
Blood/Venous No Growth in 48 hours- Final report to follow
04/01/24 03:26 Blood Culture - Preliminary
Blood/Venous No Growth in 48 hours- Final report to follow
04/01/24 12:52 MRSA Screen - Final
Nose No Methicillin Resistant Staphylococcus aureus isolated.
Imaging:
03/31/2024 CT abdomen/pelvis with oral contrast: There is significant dilation of the proximal and mid small bowel (measuring up to 6.5 cm in diameter) with relative decompression of the distal small bowel and colon. Findings are suggestive of at
least partial SBO, although well-defined transition point not appreciated. There is a small amount of free fluid within the abdomen and pelvis. No evidence of pneumatosis intestinalis or extraluminal air. There is mild nodularity of the hepatic
contour which is a nonspecific finding and may be seen in the setting of cirrhosis. There is diffuse fatty infiltration of the liver. Please see full dictation for additional detail.
--- NOTE | 2024-04-03 10:15 | PTCARENOTE ---
NSS bolus completed and NS IV now infusing at 87 ml/hr. Surgery in and wants to continue that rate. GI in to see pt and updated. No changes in assessment
--- NOTE | 2024-04-03 10:29 | W.PN.GI.CBS2 ---
Addendum entered and electronically signed by Catia Rowland MD 04/03/24 10:58:
started on TPN 04/02/24
Original Note:
Today's Communication / Plan
-
IMPRESSION / PLAN:
Abdominal Pain, secondary to SBO/partial bowel obstruction/newly diagnosed Crohn's
-Abdominal pain, nausea and vomiting, currently decompressed with NG tube
Reported history of inflammatory bowel disease, questionable Crohn's diagnosed in November 2023 at [facility] for similar presentation.
- NG tube with 450 mL of bilious material-improved. Had large soft bowel movement , abdominal pain better. No fevers or leukocytosis.
04/02/24 started Solu-Medrol 20 mg every 8 hours for possible small bowel crohns.
(Blood cultures negative so far. Currently on antibiotics per ID. ID okayed starting the steroids.)
Continue n.p.o. and monitor electrolytes and replete.
No evidence of bowel wall thickening noted on the CT scan at this time.
Still Await records from [facility] to review.
-History of hepatitis C, untreated. No evidence of decompensation at this time.
Hepatitis B surface antigen negative but antibody positive suggesting immunity. Hepatitis A antibody total positive as well. Hepatitis C antibody is reactive, await HCV RNA.
Alert oriented x 3. No evidence of asterixis.
Noted elevation in the ammonia which does not correlate with hepatic encephalopathy and clinically she is not behaving like hepatic encephalopathy.
Will need outpatient hepatology follow-up for treatment of hepatitis C.
Volume overload, monitor I/O.
Minimal ascites on US
Will follow-up
Assessment / Plan
-
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
the ED from rehab facility for abdominal pain and distention. Patient is a limited historian so the majority of patient history is obtained from prior records. Patient was previously living in [place], with recent admission at [facility] in November
2023 for similar abdominal pain and states she had both endoscopy and colonoscopy and was diagnosed with Crohn's disease. She does have a prior history of small bowel obstruction, but denies any prior abdominal surgeries. Reportedly, SBO had
previously improved with NGT and resolved without surgical intervention. Patient denies any diarrhea. She never followed up with GI. She has never been on any treatment for Crohn's, other than prednisone. She also has known Hepatitis C, never
treated.
NGT currently in place. Labs in ER reviewed, which showed leukocytosis with WBC count of 17. Lactic acid 2.4. Hemoglobin 10.1, normal MCV, platelets 210. LFTs: T. bili 0.3, AST 70, ALT 42, alk phos 251, and albumin 1.8. PT 17.1, INR 1.42.
C-reactive protein elevated, 33.7. CT of the abdomen and pelvis shows distention of the stomach and duodenum, dilated loops of small bowel and decompressed distal small bowel suggestive of distal small bowel obstruction. She was afebrile in the ER,
but temperature did increase to 100.9 today, 04/01/2024. Blood cultures pending. She has been started on IV antibiotics, Zosyn. Infectious Disease and Surgery have also been consulted.
IMPRESSION / PLAN:
Abdominal Pain, secondary to SBO/partial bowel obstruction/newly diagnosed Crohn's
-Abdominal pain, nausea and vomiting, currently decompressed with NG tube
Reported history of inflammatory bowel disease, questionable Crohn's diagnosed in November 2023 at [facility] for similar presentation.
- NG tube with 450 mL of bilious material-improved. Had large soft bowel movement , abdominal pain better. No fevers or leukocytosis.
04/02/24 started Solu-Medrol 20 mg every 8 hours for possible small bowel crohns.
(Blood cultures negative so far. Currently on antibiotics per ID. ID okayed starting the steroids.)
Continue n.p.o. and monitor electrolytes and replete.
No evidence of bowel wall thickening noted on the CT scan at this time.
Still Await records from [facility] to review.
-History of hepatitis C, untreated. No evidence of decompensation at this time.
Hepatitis B surface antigen negative but antibody positive suggesting immunity. Hepatitis A antibody total positive as well. Hepatitis C antibody is reactive, await HCV RNA.
Alert oriented x 3. No evidence of asterixis.
Noted elevation in the ammonia which does not correlate with hepatic encephalopathy and clinically she is not behaving like hepatic encephalopathy.
Will need outpatient hepatology follow-up for treatment of hepatitis C.
Volume overload, monitor I/O.
Minimal ascites on US
Will follow-up
Subjective
Subjective
Date of Service: April 03, 2024
Reports feeling much better. Had large soft BM last night. Has abt 450ml bilious material in NG tube. No fevers or chills
Objective
Data Reviewed
Laboratory Data:
Laboratory Results
04/02/24 04:55
04/03/24 05:31
Laboratory Results
PT 17.1 Sec (11.4-14.6) H 04/01/24 07:38
INR 1.42 04/01/24 07:38
Phosphorus 2.9 mg/dl (2.5-4.5) 04/03/24 05:31
Magnesium 1.9 mg/dl (1.6-2.3) 04/03/24 05:31
Total Bilirubin 0.9 mg/dl (0.2-1.3) 04/02/24 04:55
AST 36 U/L (14-36) 04/02/24 04:55
ALT 37 U/L (0-35) H 04/02/24 04:55
Alkaline Phosphatase 185 U/L (38-126) H 04/02/24 04:55
Lipase 18 U/L (23-300) L 03/31/24 22:16
Vital Signs and I&O:
Vital Signs
Temp Pulse Resp BP Pulse Ox
98.9 F 68 17 85/54 97
04/03/24 00:09 04/03/24 06:00 04/03/24 06:00 04/03/24 06:00 04/03/24 05:00
I&O
04/02/24 04/03/24 04/04/24
06:59 06:59 06:59
Intake Total 1030 / 1060 1420 / 1488 166 / 166
Output Total 900 / 900 720 / 720
Balance 130 / 160 700 / 768 166 / 166
Physical Exam
Physical Exam
GI: Soft, Tender (discomfort on palpation in abdomen diffusely) and Normal Bowel Sounds
Extremities: Edema
[2024-04-03] MEDS: UNASYN IV ×3 (10:35→21:12)
--- NOTE | 2024-04-03 11:30 | PTCARENOTE ---
#16 F thermistor correia inserted per md order. Return of fallon urine. Corinne care given prior. Repositioned. VS as documented
--- NOTE | 2024-04-03 11:42 | W.PN.GS2 ---
Addendum entered and electronically signed by Sonny Griffiths MD 04/03/24 13:17:
I saw and examined the patient.
The SET DECORATOR's note was reviewed and I agree with the note.
Comment:
No overnight events. Patient more alert and awake today. States that pain and distention are somewhat better. No nausea/vomits. Still with NGT in place. Had another small brown BM. Passing some flatus.
AFVSS, ABD soft, mildly to moderately distended, mildly to moderately diffusely tender, overall exam improved from yesterday, no rebound or guarding, NGT�550 mL light bilious,
CRP 74.2 from 89
�Reported history of Crohn's, current clinical picture with small bowel obstruction and elevated CRP, concerning for Crohn's flare
�Continue IV Solu-Medrol 20 every 8
�Awaiting outside records to confirm previous workup, treatment and diagnosis
�Appreciate GI
�Recommend MRE versus CTE to evaluate for small bowel disease, such as inflammatory/fibrotic stricture
�Will need close monitoring of clinical status; if worsening of pain or hemodynamics, please call surgery promptly
� Continue n.p.o. with NGT; continue TPN due to malnutrition
� Continue antibiotics per ID; blood cultures negative so far, leukocytosis resolved
� Appreciate hospitalist
Original Note:
Today's Communication / Plan
-
continue NPO/NGT/IVF/TPN
Assessment / Plan
-
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
nausea and vomiting and low grade temps
Recent admission at [facility] where she reportedly had EGD/colonoscopy: records requested but not yet received
Recently left SNF ([facility]) to live with family
Difficult to discern the exact cause for her symptoms. Unlikely to be an adhesive SBO given lack of surgical history and age. No evidence of a hernia on exam or CT scan. Unlikely to be a mass given age. More likely to be related to IBD. Less
likely dysmotility secondary to constipation or narcotic ileus.
XR stable 04/02
Hypotension noted, no further fevers
UDS remarkable for multiple illicit substances: fentanyl, oxycodone, cocaine, benzos, in addition to expected buprenorphine and opioid (dilaudid): mentation improving now
Severe protein calorie malnutrition noted with prealbumin of 6.3 on arrival and anasarca present
Steroids initiated on 04/02, starting to improve. Now passing flatus/stools.
Plan:
--GI and ID following
--Continue IV steroids
--C/W NGT to wall suction/NPO with ice chips for comfort
--Continue TPN, railroad brake operator following with us
--IVF bolus given this am with improvement in hypotension, continue IVF
--Supportive measures as per primary team
--Medical management as per primary team
No plans or indication for surgical intervention at this time. May need repeat imaging with PO contrast but will hold off for now as she is improving. Case d/w rotary rock drilling machine operator and primary nurse as bedside
Subjective Data
-
Date of Service: April 03, 2024
Patient seen and examined at bedside with Dr. Griffiths. Denies n/v. More awake and conversive today. Passed a large soft stool and flatus overnight. Pain improving but still present.
Objective Data
-
Intake and Output
04/02/24 04/03/24 04/04/24
06:59 06:59 06:59
Intake Total 1030 / 1060 1420 / 1488 1509 / 1509
Output Total 900 / 900 720 / 720
Balance 130 / 160 700 / 768 1509 / 1509
Intake:
Oral fluids 0 / 0 0 / 0
IV fluids (Total) 630 / 660 660 / 690 1207 / 1207
D5lr 1,000 ml @ 30 mls/hr IV . 630 / 630
Q24H [facility] Rx#:[id number]
D5lr 500 ml @ 30 mls/hr IV . 240 / 240
[id number] [facility] Rx#:[id number]
NSS bolus 1000 / 1000
Nss 1,000 ml @ 30 mls/hr IV . 420 / 450 120 / 120
Q24H [facility] Rx#:[id number]
Nss 1,000 ml @ 87 mls/hr IV . 87 / 87
[id number] [facility] Rx#:[id number]
IV piggybacks 250 / 250 200 / 200 120 / 120
TPN/PPN 380 / 418 152 / 152
Amount instilled into GI Tube ( 150 / 150 180 / 180 30 / 30
Total)
Mcduffie Sump 150 / 150 180 / 180 30 / 30
Output:
Gastrointestinal tube output ( 900 / 900 550 / 550
Total)
Mcduffie Sump 900 / 900 550 / 550
Urine, Voided 0 / 0
Straight cath output 170 / 170
Other:
Number of approximated LARGE 1 1
amounts of urine
Vital Signs
Temp Pulse Resp BP Pulse Ox
97.6 F 74 17 100/68 99
04/03/24 07:30 04/03/24 11:00 04/03/24 11:00 04/03/24 10:00 04/03/24 11:00
Lab Results
04/02/24 04:55
04/03/24 05:31
Calcium 7.2 mg/dl (8.4-10.2) L 04/03/24 05:31
Phosphorus 2.9 mg/dl (2.5-4.5) 04/03/24 05:31
Magnesium 1.9 mg/dl (1.6-2.3) 04/03/24 05:31
Total Bilirubin 0.9 mg/dl (0.2-1.3) 04/02/24 04:55
AST 36 U/L (14-36) 04/02/24 04:55
ALT 37 U/L (0-35) H 04/02/24 04:55
Alkaline Phosphatase 185 U/L (38-126) H 04/02/24 04:55
Total Protein 4.2 g/dl (6.3-8.2) L 04/02/24 04:55
Albumin 1.8 g/dl (3.5-5.0) L 04/02/24 04:55
Physical Exam
-
Sleepy but awakens to name
ABD distended, tender to light palpation, NGT with bilious outputs
Anasarca
RUE amp above elbow, foot drop BLLE
[2024-04-03 12:09] LABS: Glucose - Point of Care 114 mg/dl (70-99)
[2024-04-03] MEDS: NOVOLOG FLEXPEN-MODERATE RESISTANCE SC ×3 (12:11→23:36)
--- NOTE | 2024-04-03 12:20 | PTCARENOTE ---
Overall assessment is unchanged. Was dozing intermittently earlier-now awake and playing on her I PAD C/o 03/17 abd discomfort. Medicated with Dilaudid 1 mg IV at 1215. Plan is to have pt sit on the side of the bed shortly and exercise her legs as
she does not really move them much at all. Pt with serous weeping of her upper thighs. Was incont of a mod amt of soft formed brown stool-gurpreet care given.
--- NOTE | 2024-04-03 13:40 | PTCARENOTE ---
Did some ROM exercises with pt and pt currently sitting on the side of the bed watching a movie. States she is comfortable sitting up. Did own oral care. While she seems to have little flexion/extension of her ankles/feet. She was able to lift her
legs and sl bend her knees once she got started. Denies dizziness sitting up. States earlier Dilaudid helps the abd pain a little. Call ferguson in reach and emphasized to pt that she needs to ring if she needs to lay back down. Verbalized
understanding.
--- NOTE | 2024-04-03 16:25 | PTCARENOTE ---
Overall assessment is unchanged. Has been awake all afternoon. Sat on the side of the bed for 2 1/2 hrs and tolerated well. Is c/o 10/ abd pain and remedicated at 1620 with Dilaudid 1 mg IV. States the Dilaudid very sl decreases the discomfort
but pt has been able to sit up, watch TV and use her I pad despite the discomfort. VS as documented. NG with greenish tinged drainage. Alva draining fallon urine. UO anywhere from 15-30 ml/hr. Currently repositioned back in bed. Call ferguson in reach.
[2024-04-03] MEDS: LOVENOX 40 MG SC (17:42)
--- NOTE | 2024-04-03 18:07 | PTCARENOTE ---
No changes in assessment. Playing on IPAD. When asked about pain states its starting to go up again- will usually say abd discomfort is anywhere from a 10-12 (same as it has been) Sitting on the side of the bed earlier did not seem to make abd pain
worse. Post pain med the pain is about an 8. Urine output all shift is 210 mls- Dr. Arzola updated. Pts edema is a +2-3 on her legs with some serous weeping and a +2 trunk/generalized anasarca. Repositioned. Taking a few ice chips sparingly. Call ferguson
in reach
[2024-04-03 18:38] LABS: Glucose - Point of Care 126 mg/dl (70-99)
[2024-04-03] MEDS: ANESTHETIC LOZENGE 1 LOZENGE PO ×2 (20:27→22:39)
[2024-04-03] MEDS: Parenteral Nutrition, Central 910 IV (20:28)
--- NOTE | 2024-04-03 23:00 | PTCARENOTE ---
Assumed care of patient at 2300, nursing assessment as documented. R dagoberto NGT to LIWS - mininal clear/orange output. L D/L PICC with TPN and NS infusing, see MAR. Medication with PRN dilaudid. +BM on bed pratt, CHG bath performed at this time. Call
ferguson within reach, VSS, care ongoing.
[2024-04-03 23:35] LABS: Glucose - Point of Care 145 mg/dl (70-99)
[2024-04-04] VITALS (13 sets, daily range): BP systolic 99–129; BP diastolic 58–102; BMI 25.6
[2024-04-04] MEDS: SOLU-MEDROL PF 20 MG IV ×3 (00:38→17:08)
[2024-04-04] MEDS: DILAUDID 1 MG IV ×5 (00:38→20:05)
[2024-04-04] MEDS: ANESTHETIC LOZENGE 1 LOZENGE PO ×5 (00:39→21:36)
--- NOTE | 2024-04-04 01:10 | PTCARENOTE ---
Report given to IMU RN's, patient transferred directly to room 3350 in bed with all belongings. Handoff monitor documented completed, see worklist.
--- NOTE | 2024-04-04 03:00 | PTCARENOTE ---
Received pt from ICU. Pt has left double lumen PICC with TPN and NS infusing (see MAR). R nare NGT to low intermittent suction, this is minimal clear output. VSS. Pt resting in bed with call bed in reach.
[2024-04-04] MEDS: UNASYN IV (03:54)
[2024-04-04] MEDS: NSS 1000 IV (03:58)
[2024-04-04 05:18] LABS: Glucose - Point of Care 124 mg/dl (70-99)
[2024-04-04 05:26] LABS: Hemoglobin 7.9 g/dL (12.0-16.0); Mean Corp Hgb Conc. 31.6 g/dL (33.0-37.0); Mean Corpuscular Hgb 28.7 pg (27.0-31.0); Mean Corpuscular Volume 90.9 fL (81.0-99.0); Mean Platelet Volume 10.7 fL (7.4-10.4); Platelet Count 228 10^3/uL (130-400); Red Blood Cell Count 2.75 10^6/uL (4.20-5.40); Red Cell Dist. Width 17.9 % (11.5-14.5); White Blood Cell Count 5.3 10^3/uL (4.8-10.8)
[2024-04-04] MEDS: NOVOLOG FLEXPEN-MODERATE RESISTANCE SC ×2 (05:45→18:26)
[2024-04-04 05:54] LABS: ALT (SGPT) 29 U/L (0-35); AST (SGOT) 29 U/L (14-36); Albumin 1.6 g/dl (3.5-5.0); Alkaline Phosphatase 220 U/L (38-126); Blood Urea Nitrogen 11 mg/dl (7-17); Calcium 7.5 mg/dl (8.4-10.2); Carbon Dioxide 24 mmol/L (22-30); Chloride 112 mmol/L (98-107); Estimated Creatinine Clearance 100 ml/min; Glucose 129 mg/dl (70-99); Magnesium 1.9 mg/dl (1.6-2.3); Phosphorus 2.3 mg/dl (2.5-4.5); Potassium 3.8 mmol/L (3.5-5.1); Sodium 140 mmol/L (135-145); Total Bilirubin 0.2 mg/dl (0.2-1.3); Triglycerides 95 mg/dl (10-149); eGFR > 60.00
[2024-04-04] MEDS: POTASSIUM PHOSPHATE 259.0909 MEQ IV (08:03)
[2024-04-04] MEDS: NSS (PRESERVATIVE FREE) 10 ML IV (08:04)
[2024-04-04] MEDS: PROTONIX IV 40 MG IV (08:04)
[2024-04-04] MEDS: THIAMINE INJECTION 100 MG IV (08:04)
[2024-04-04] MEDS: SUBUTEX 8 MG SL ×2 (08:06→20:04)
[2024-04-04] MEDS: LIDOCAINE 4% PATCH TOPICAL (08:07)
[2024-04-04 08:40] LABS: Quantiferon Mitogen minus NIL 9.95 IU/mL; Quantiferon NIL 0.05 IU/mL; Quantiferon Plus TB1 minus NIL 0.01 IU/mL (<=0.34); Quantiferon TB Gold Plus Negative (Negative)
--- NOTE | 2024-04-04 09:52 | W.PN.ID1 ---
Date of Service
Date of Service: April 04, 2024
Today's Communication
Sign off
Assessment / Plan
Leukocytosis
Partial SBO
Profound protein calorie malnutrition
Anemia
Lactic acidosis
Reported history hep C
Transaminitis
Elevated CRP
Generalized deconditioning
Hx substance abuse
GERD
Hx Crohn's disease
Hx of cirrhosis
Recommendations:
White count stable; patient remains afebrile. Cultures negative.
No infectious process noted. Discontinue further antibiotics.
Little more to offer from a Infectious Disease standpoint.
Will see again at your request.
����������������������������������������������������������
Chief Complaint
-: Leukocytosis and Other (Crohn's; suspected SBO)
Subjective / Review of Systems
Patient seen and examined. Reports feeling improved today. Remains conversant.
Vital Signs / Physical Exam
Vital Signs
Vital Signs
Temp Pulse Resp BP Pulse Ox
97.5 F 58 11 104/58 97
04/04/24 07:15 04/04/24 06:02 04/04/24 06:02 04/04/24 06:02 04/04/24 06:28
Physical Exam
Constitutional: Comfortable, Chronically Ill and Non-toxic
Head: Other (NG tube to suction remains in place.)
Eyes: Sclera Anicteric
Cardiovascular: S1/S2; Negative S3/S4
Pulmonary: Non Labored
Gastrointestinal: Soft, Non Tender, Decreased Bowel Sounds, No Rebound and No Guarding
Skin: Warm and Dry; Negative Rash or Jaundice
Neurological: Awake and Alert
Psychological: Calm
Objective Data
Lab Data
Lab Results
04/04/24 05:01
04/04/24 05:03
PT 17.1 Sec (11.4-14.6) H 04/01/24 07:38
INR 1.42 04/01/24 07:38
Estimated Creat Clear 100 ml/min 04/04/24 05:03
Lactic Acid Cancelled 04/01/24 21:00
Total Bilirubin 0.2 mg/dl (0.2-1.3) 04/04/24 05:03
AST 29 U/L (14-36) 04/04/24 05:03
ALT 29 U/L (0-35) 04/04/24 05:03
Alkaline Phosphatase 220 U/L (38-126) H 04/04/24 05:03
C-Reactive Protein 47.80 mg/L (0.0-10.00) H 04/04/24 05:01
Most recent labs reviewed.
Micro Results:
04/01/24 03:26 Blood Culture - Preliminary
Blood/Venous No Growth in 72 hours- Final report to follow
04/01/24 03:26 Blood Culture - Preliminary
Blood/Venous No Growth in 72 hours- Final report to follow
04/01/24 12:52 MRSA Screen - Final
Nose No Methicillin Resistant Staphylococcus aureus isolated.
Imaging:
03/31/2024 CT abdomen/pelvis with oral contrast: There is significant dilation of the proximal and mid small bowel (measuring up to 6.5 cm in diameter) with relative decompression of the distal small bowel and colon. Findings are suggestive of at
least partial SBO, although well-defined transition point not appreciated. There is a small amount of free fluid within the abdomen and pelvis. No evidence of pneumatosis intestinalis or extraluminal air. There is mild nodularity of the hepatic
contour which is a nonspecific finding and may be seen in the setting of cirrhosis. There is diffuse fatty infiltration of the liver. Please see full dictation for additional detail.
[2024-04-04 10:15] LABS: Glycohemoglobin (HgbA1c) 3.8 % (4.0-5.6)
--- NOTE | 2024-04-04 10:44 | PTCARENOTE ---
PCT informed RN that patient was eating slim cb that patients dad brought in for patient. RN to bedside and informed patient that a clear liquid diet was ordered by the surgery team. Education provided to patient and patients dad on importance of a
clear liquid diet after removal of NG tube and what a clear liquid diet consists of. Patient refused teaching. Patient stated, 'I have been down this road before, I know what I am doing and I am going to eat what I want'. Alysha Mcgee MANAGER MECHANICAL MAINTENANCE made aware.
Care ongoing at this time.
--- NOTE | 2024-04-04 11:07 | PTCARENOTE ---
This RN spoke to Alysha Mcgee NP and she stated to keep correia in place for acute retention. Correia care provided.
--- NOTE | 2024-04-04 11:57 | W.PN.GI.CBS2 ---
Today's Communication / Plan
-
IMPRESSION / PLAN:
Abdominal Pain, secondary to SBO/partial bowel obstruction/newly diagnosed Crohn's
-Abdominal pain, nausea and vomiting, requiring NG tube decompression -now removed
Reported history of inflammatory bowel disease, questionable Crohn's diagnosed in November 2023 at [facility] for similar presentation.
Still no records from [facility]- she had EGD/colonoscoppy there. She reports she has appointment with GI at [place] 05/19- will have to move it up to sooner. She is looking to go to a rehab place close to [place].
04/02/24 started Solu-Medrol 20 mg every 8 hours for possible small bowel crohns. Once she is able to start PO dieet, will switch to oral prednisone
(Blood cultures negative so far. Currently on antibiotics per ID. ID okayed starting the steroids.)
Continue n.p.o. and TPN started. monitor electrolytes and replete, watch for refeeding.
No evidence of bowel wall thickening noted on the CT scan at this time.
Abdomen still mildly distended, would check AXR in AM again
-History of hepatitis C, untreated. No evidence of decompensation at this time.
Hepatitis B surface antigen negative but antibody positive suggesting immunity. Hepatitis A antibody total positive as well. Hepatitis C antibody is reactive, await HCV RNA.
As per pt, she was diagnosed with Hep C 14 yrs ago, started treatment but was not able to finish. Will need OP hepatology eval.
Alert oriented x 3. No evidence of asterixis.
Noted elevation in the ammonia on admission which does not correlate with hepatic encephalopathy and clinically she is not behaving like hepatic encephalopathy.
Will need outpatient hepatology follow-up for treatment of hepatitis C.
Volume overload, monitor I/O.
Minimal ascites on US
Will follow-up
Assessment / Plan
-
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
the ED from rehab facility for abdominal pain and distention. Patient is a limited historian so the majority of patient history is obtained from prior records. Patient was previously living in [place], with recent admission at [facility] in November
2023 for similar abdominal pain and states she had both endoscopy and colonoscopy and was diagnosed with Crohn's disease. She does have a prior history of small bowel obstruction, but denies any prior abdominal surgeries. Reportedly, SBO had
previously improved with NGT and resolved without surgical intervention. Patient denies any diarrhea. She never followed up with GI. She has never been on any treatment for Crohn's, other than prednisone. She also has known Hepatitis C, never
treated.
NGT currently in place. Labs in ER reviewed, which showed leukocytosis with WBC count of 17. Lactic acid 2.4. Hemoglobin 10.1, normal MCV, platelets 210. LFTs: T. bili 0.3, AST 70, ALT 42, alk phos 251, and albumin 1.8. PT 17.1, INR 1.42.
C-reactive protein elevated, 33.7. CT of the abdomen and pelvis shows distention of the stomach and duodenum, dilated loops of small bowel and decompressed distal small bowel suggestive of distal small bowel obstruction. She was afebrile in the ER,
but temperature did increase to 100.9 today, 04/01/2024. Blood cultures pending. She has been started on IV antibiotics, Zosyn. Infectious Disease and Surgery have also been consulted.
IMPRESSION / PLAN:
Abdominal Pain, secondary to SBO/partial bowel obstruction/newly diagnosed Crohn's
-Abdominal pain, nausea and vomiting, requiring NG tube decompression -now removed
Reported history of inflammatory bowel disease, questionable Crohn's diagnosed in November 2023 at [facility] for similar presentation.
Still no records from [facility]- she had EGD/colonoscoppy there. She reports she has appointment with GI at [place] 05/19- will have to move it up to sooner. She is looking to go to a rehab place close to [place].
04/02/24 started Solu-Medrol 20 mg every 8 hours for possible small bowel crohns. Once she is able to start PO dieet, will switch to oral prednisone
(Blood cultures negative so far. Currently on antibiotics per ID. ID okayed starting the steroids.)
Continue n.p.o. and TPN started. monitor electrolytes and replete, watch for refeeding.
No evidence of bowel wall thickening noted on the CT scan at this time.
Abdomen still mildly distended, would check AXR in AM again
-History of hepatitis C, untreated. No evidence of decompensation at this time.
Hepatitis B surface antigen negative but antibody positive suggesting immunity. Hepatitis A antibody total positive as well. Hepatitis C antibody is reactive, await HCV RNA.
As per pt, she was diagnosed with Hep C 14 yrs ago, started treatment but was not able to finish. Will need OP hepatology eval.
Alert oriented x 3. No evidence of asterixis.
Noted elevation in the ammonia on admission which does not correlate with hepatic encephalopathy and clinically she is not behaving like hepatic encephalopathy.
Will need outpatient hepatology follow-up for treatment of hepatitis C.
Volume overload, monitor I/O.
Minimal ascites on US
Will follow-up
Subjective
Subjective
Date of Service: April 04, 2024
Pt much more awake today, NG tube removed. Had brown BM yesterday. Denies any abdominal pain,nausea, vomiting. No fevers or chills
Objective
Data Reviewed
Laboratory Data:
Laboratory Results
04/04/24 05:01
04/04/24 05:03
Laboratory Results
PT 17.1 Sec (11.4-14.6) H 04/01/24 07:38
INR 1.42 04/01/24 07:38
Phosphorus 2.3 mg/dl (2.5-4.5) L 04/04/24 05:03
Magnesium 1.9 mg/dl (1.6-2.3) 04/04/24 05:03
Total Bilirubin 0.2 mg/dl (0.2-1.3) 04/04/24 05:03
AST 29 U/L (14-36) 04/04/24 05:03
ALT 29 U/L (0-35) 04/04/24 05:03
Alkaline Phosphatase 220 U/L (38-126) H 04/04/24 05:03
Lipase 18 U/L (23-300) L 03/31/24 22:16
Vital Signs and I&O:
Vital Signs
Temp Pulse Resp BP Pulse Ox
97.5 F 66 12 117/68 100
04/04/24 07:15 04/04/24 10:00 04/04/24 10:00 04/04/24 08:17 04/04/24 10:00
I&O
04/03/24 04/04/24 04/05/24
06:59 06:59 06:59
Intake Total 1420 / 1488 3502 / 3502
Output Total 720 / 720 640 / 640
Balance 700 / 768 2862 / 2862
Physical Exam
Physical Exam
GI: Soft, Distended (mildly distended) and Normal Bowel Sounds
[2024-04-04 12:02] LABS: Iron 63 ug/dl (37-170)
--- NOTE | 2024-04-04 12:08 | W.PN.GS2 ---
Addendum entered and electronically signed by Crescenico Gonzalez MD 04/04/24 12:30:
I saw and examined the patient independently.
The [employer]'s note was reviewed and I agree with the note, assessment and plan except where noted below.
Comment: This is a 34-year-old female with complex medical history presents with abdominal pain, nausea and vomiting found to have a small bowel obstruction on CT.
Complex psychosocial picture.
Appreciate GI involvement for her IBD.
Okay for clears, will advance to a low residue diet. We briefly discussed nutrition going forward. She understands she needs to be on small frequent meals however this is somewhat difficult given that she is in a facility and cannot control timing
of her food, and she finds it difficult to portion control.
We will continue TPN today, will reassess tomorrow but if advancing diet will likely stop.
Original Note:
Today's Communication / Plan
-
d/c NGT trial of clears
continue tpn
Assessment / Plan
-
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
nausea and vomiting and low grade temps
Recent admission at [facility] where she reportedly had EGD/colonoscopy: records requested but not yet received
Recently left SNF ([facility]) to live with family
Difficult to discern the exact cause for her symptoms. Unlikely to be an adhesive SBO given lack of surgical history and age. No evidence of a hernia on exam or CT scan. Unlikely to be a mass given age. More likely to be related to IBD. Less
likely dysmotility secondary to constipation or narcotic ileus.
XR stable 04/02
AFVSS
Severe protein calorie malnutrition noted: TPN started on 04/02
Steroids initiated on 04/02, starting to improve. Now passing flatus/stools
Plan:
--GI and ID following
--Continue IV steroids
--D/C NGT, Trial of clears
--Continue TPN, box order person following with us
--Replace phosphorus
--Supportive measures as per primary team
--Medical management as per primary team
No plans or indication for surgical intervention at this time. May need repeat imaging with PO contrast but will hold off for now as she is improving. Case d/w clinical rehabilitation coordinator and primary nurse as bedside
Subjective Data
-
Date of Service: April 04, 2024
Patient seen and examined at bedside with Dr. Gonzalez. Denies nausea/vomiting. Pain much improved as is distention. Notes she is hungry.
Objective Data
-
Intake and Output
04/03/24 04/04/24 04/05/24
06:59 06:59 06:59
Intake Total 1420 / 1488 3502 / 3502
Output Total 720 / 720 640 / 640
Balance 700 / 768 2862 / 2862
Intake:
Oral fluids 0 / 0 120 / 120
IV fluids (Total) 660 / 690 2338 / 2338
D5lr 500 ml @ 30 mls/hr IV . 240 / 240
[id number] [facility] Rx#:[id number]
NSS bolus 1000 / 1000
Nss 1,000 ml @ 30 mls/hr IV . 420 / 450 120 / 120
Q24H [facility] Rx#:[id number]
Nss 1,000 ml @ 87 mls/hr IV . 1218 / 1218
[id number] [facility] Rx#:[id number]
IV piggybacks 200 / 200 240 / 240
TPN/PPN 380 / 418 684 / 684
Amount instilled into GI Tube ( 180 / 180 120 / 120
Total)
[place] Sump 180 / 180 120 / 120
Output:
Gastrointestinal tube output ( 550 / 550 150 / 150
Total)
[place] Sump 550 / 550 150 / 150
Urine, Alva 490 / 490
Straight cath output 170 / 170
Other:
Number of approximated LARGE 1
amounts of urine
Vital Signs
Temp Pulse Resp BP Pulse Ox
97.5 F 66 12 117/68 100
04/04/24 07:15 04/04/24 10:00 04/04/24 10:00 04/04/24 08:17 04/04/24 10:00
Lab Results
04/04/24 05:01
04/04/24 05:03
Calcium 7.5 mg/dl (8.4-10.2) L 04/04/24 05:03
Phosphorus 2.3 mg/dl (2.5-4.5) L 04/04/24 05:03
Magnesium 1.9 mg/dl (1.6-2.3) 04/04/24 05:03
Total Bilirubin 0.2 mg/dl (0.2-1.3) 04/04/24 05:03
AST 29 U/L (14-36) 04/04/24 05:03
ALT 29 U/L (0-35) 04/04/24 05:03
Alkaline Phosphatase 220 U/L (38-126) H 04/04/24 05:03
Total Protein 4.0 g/dl (6.3-8.2) L 04/04/24 05:03
Albumin 1.6 g/dl (3.5-5.0) L 04/04/24 05:03
Physical Exam
-
A&Ox3
ABD minimally distended, NT, NGT with light minimal outputs
Anasarca
RUE amp above elbow, foot drop BLLE
[2024-04-04 12:13] LABS: Percent Saturation 67 % (20-50); Total Iron Binding Capacity 93 ug/dl (265-497)
[2024-04-04 12:18] LABS: Glucose - Point of Care 150 mg/dl (70-99)
[2024-04-04] MEDS: NOVOLOG FLEXPEN-MODERATE RESISTANCE 1 UNITS SC (12:30)
--- NOTE | 2024-04-04 13:47 | PTCARENOTE ---
Patient complaining of 10/10 abdominal pain. Alysha Mcgee SCIENCE AND OPERATIONS OFFICER made aware. Patient made NPO. Patient education provided. Medication provided per AUG. Care ongoing at this time.
--- NOTE | 2024-04-04 14:47 | CM ---
Addendum entered by Alissa Brumfield RN 04/04/24 15:09:
Seen by wound care nurse.
Original Note:
Patient with Hx IVDA, opiate use disorder on Suboxone, RUE amputation with Dx Persistent abdominal pain, partial SBO, new Crohns Dz, Concern for evolving sepsis. Room air. Clears - NGT out per nurse. PICC. TPN. Receiving Subutex, IV Steroids,
IV Protonix. Alva. PT/OT recommend acute rehab. Physiatry Eval pending.
Case discussed with Fernando Reynaga Liaison. She does not need consult placed at this time - advised to wait for Physiatry Consult. Discussed that family has declined to take patient home again. Patient would need to have a discharge
disposition in order to go to [place] [facility].
Met with patient who confirms that she would like to go to a rehab facility and that she wants to stay there for LTC.
Plan follow up after seen by Physiatry.
--- NOTE | 2024-04-04 15:00 | WOUNDNOTE ---
R 5TH TOE WEBSPACE
--- NOTE | 2024-04-04 15:04 | WOUNDNOTE ---
R ARM AMP STUMP
--- NOTE | 2024-04-04 15:04 | WOUNDNOTE ---
R GREAT TOE TIP
--- NOTE | 2024-04-04 15:05 | WOUNDNOTE ---
R GREAT TOE WEBSPACE
--- NOTE | 2024-04-04 15:06 | WOUNDNOTE ---
R ISCHIUM (with photo flash)
--- NOTE | 2024-04-04 15:16 | WOUNDNOTE ---
[facility] RN note: Patient admitted with small bowel obstruction. Plan is possible SNF placement when discharged.
See H&P for complete history.
PMH: Chron's, bipolar, Hep C, possible cirrhosis, polysubstance abuse with prior OD, RUE amputation with residual small wound (patient stated surgery was done in [place]), bilateral foot drop.
Wound Location and type/assessment: Patient admitted with: R upper arm amp with small dermal ulcer. R ischial stage 2 small pressure injury. Sacral/buttocks linear discolored stage 1 and 2 pressure injuries. R distal great toe dry pink ulcer with
hard off white tissue (unsure if probes to bone). Patient mentioned it was x rayed at [facility] about 1 month ago. +Palpable pedal pulses. +2LE edema. +Anasarca.
Appetite: currently NPO.
Pressure redistribution devices in place: Centrella Max air bed. Patient does not lift her legs off bed. She can turn in bed with assist.
Plan: Protective gauze dressing applied to R great toe tip. Silicone border foam applied to RUE amp wound, R ischium and sacrum. Heels off bed with pillow and air chair cushion. Instructed patient pressure injury prevention measures.
Updated Dr. Garg and Dr. Finnegan re: R great toe appearance and tiger texted wound picture. Dr. Garg approved local wound care, air mattress, heel relief measures. Dr. Finnegan recommends podiatry consult. Asked and defer to hospitalist re:
podiatry consult to evaluate R great toe tip.
Care plan to be updated and will follow as needed.
Note to case management of equipment requested for discharge: Air mattress at SNF.
Recommend follow up at wound care center upon discharge.
--- NOTE | 2024-04-04 16:25 | W.PN.HOSP.TC ---
Today's Communication/Plan
-
Clear liquid diet
Continue TPN
Continue IV corticosteroids
Hold lactulose.
Hold diuretics.
Podiatry consultation in a.m. to assess right great toe ulcer
Assessment / Plan
Assessment / Plan
Impression.
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 Recently diagnosed Crohn's disease presented emergency room with
persistent abdominal pain and fever..
Persistent abdominal pain.
Partial small bowel obstruction secondary to Crohn's disease inflammatory stricture
Sepsis ruled out
Cirrhosis by records and imaging
Hepatitis C untreated.
Chronic normocytic anemia
Hypoalbuminemia
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
Right foot/great toe ulcer
Plan:
Fever, leukocytosis, lactic acid elevation.
Concern for clinical sepsis
Possible sources, intra-abdominal, bacteremia with left upper extremity PICC line in place on admission, urinary.
Currently stable respiratory status.
Chest x-ray with no infiltrates.
Blood cultures pending.
Broad-spectrum antibiotics per
IV fluid resuscitation.
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 If treatment for Crohn's
Presentation with persistent abdominal pain
Concern for SBO.
CT scan in ED with oral contrast only:
1. Significant dilation of the proximal and mid small bowel, measuring up to 6.5 cm in diameter, with relative decompression of the distal small bowel and colon. Findings are suggestive of at least partial small intestinal obstruction, although
well-defined transition point is not appreciated.
2. Small amount of free fluid within the abdomen and pelvis.
3. No evidence of pneumatosis intestinalis or extraluminal air.
4. Mild nodularity of the hepatic contour, a nonspecific finding which may be seen in the setting of cirrhosis. Diffuse fatty infiltration of the liver.
? Partial SBO versus ileus, versus SBP (although minimal amount of free fluid on CT scan imaging)
Sepsis ruled out.
Small bowel obstruction suspected secondary to inflammatory stricture with known Crohn's disease
Initiated on IV steroids/Solu-Medrol.
Improved abdominal pain.
Diet has been advanced to clears.
Initiated on TPN
Cirrhosis by history and imaging (CT scan with hepatic nodularity)
Untreated hepatitis C reported
Ultrasound with minimal ascites
Hyperammonemia on admission not correlated with hepatic encephalopathy
Hold lactulose acutely monitoring mental status closely.
Hold Lasix and Aldactone
Right foot/great toe ulcer with exposed bone.
Podiatry consultation
Substance abuse with history of IVDA.
Continue Suboxone sublingual
DVT prophylaxis�subcu Lovenox
Full code
Total time spent to see the patient on the floor, examine the patient, review data and lab results, discuss treatment plan with patient, nursing staff around 40 minutes.
Anticipated Discharge: 24 - 48 hours
Subjective/Interval History
-
Date of Service: April 04, 2024
Objective Data
-
Labs:
Laboratory Results
04/04/24 04/04/24
05:01 05:03
WBC 5.3
Hgb 7.9 L
Hct 25.0 L
Plt Count 228
Sodium 140
Potassium 3.8
Chloride 112 H
Carbon Dioxide 24
BUN 11
Creatinine 0.3 L
Glucose 129 H
Calcium 7.5 L
Total Bilirubin 0.2
AST 29
ALT 29
Alkaline Phosphatase 220 H
Vital Signs:
Vital Signs
Temp Pulse Resp BP Pulse Ox
97.3 F 79 11 129/79 100
04/04/24 11:05 04/04/24 15:08 04/04/24 15:08 04/04/24 15:08 04/04/24 15:08
I&O
04/03/24 04/04/24 04/05/24
06:59 06:59 06:59
Intake Total 1420 / 1488 3502 / 3502
Output Total 720 / 720 640 / 640
Balance 700 / 768 2862 / 2862
Physical Exam
-
General: Well Developed and No Apparent Distress
HEENT: Normocephalic, Atraumatic and Moist Mucous Membranes
Respiratory: Clear to Auscultation
Cardiac: Regular Rhythm and S1/S2; Negative Murmur, Rub or Gallop
GI: Soft, Nontender, Nondistended and Normal Bowel Sounds; Negative Organomegaly
Rectal: Deferred by Provider
Musculoskeletal: No Clubbing, No Cyanosis and No Edema
Skin: Negative Rash
Neuro: Nonfocal/Grossly Intact
--- NOTE | 2024-04-04 16:44 | PTCARENOTE ---
Patient AOx3. Sinus hilary-NSR on tele. NG tube removed by MD at bedside this AM. Patient advanced to clear liquids and then started with abdominal pain. Patient then made NPO. Abdominal pain subsided and restarted on clear liquids. Patient
tolerating clear liquids. TPN running per order through L arm PICC. Assist x2 stand and pivot to chair. Alva draining fallon colored urine. 1 medium sized BM today. Pain medication provided per AUG. See worklist for full assessment.
[2024-04-04] MEDS: LOVENOX 40 MG SC (17:08)
[2024-04-04 18:19] LABS: HCV Quant by NAAT IU/mL 1090000 IU/mL; HCV Quant by NAAT Interp Detected (Not Detected); HCV Quant by NAAT Log IU/mL 6.04 log IU/mL
[2024-04-04 18:36] LABS: Glucose - Point of Care 132 mg/dl (70-99)
[2024-04-04] MEDS: Parenteral Nutrition, Central 950 IV (21:36)
--- NOTE | 2024-04-04 22:00 | PTCARENOTE ---
received pt from day shift. Pt aaox3. NSR on monitor. VSS. TPN running at 40 mL/hr. Alva draining fallon urine. Pt complaining of 10/10 pain in her abdomen that she was unable to describe, pain medication provided (see MAR). Pt resting in bed with
call ferguson in reach.
[2024-04-04 23:36] LABS: Glucose - Point of Care 143 mg/dl (70-99)
[2024-04-05] MEDS: NOVOLOG FLEXPEN-MODERATE RESISTANCE SC ×4 (00:27→17:45)
[2024-04-05] MEDS: SOLU-MEDROL PF 20 MG IV ×3 (01:08→17:19)
[2024-04-05 01:12] VITALS: BP 136/97
[2024-04-05] MEDS: DILAUDID 1 MG IV ×2 (01:19→05:22)
[2024-04-05 04:44] VITALS: BP 120/84
[2024-04-05 04:52] VITALS: BMI 27.6
[2024-04-05 05:32] LABS: Glucose - Point of Care 118 mg/dl (70-99)
[2024-04-05 05:38] LABS: Blood Urea Nitrogen 10 mg/dl (7-17); Calcium 7.6 mg/dl (8.4-10.2); Carbon Dioxide 25 mmol/L (22-30); Chloride 112 mmol/L (98-107); Estimated Creatinine Clearance 115 ml/min; Glucose 108 mg/dl (70-99); Magnesium 1.9 mg/dl (1.6-2.3); Phosphorus 2.6 mg/dl (2.5-4.5); Sodium 139 mmol/L (135-145); eGFR > 60.00
[2024-04-05] MEDS: ANESTHETIC LOZENGE 1 LOZENGE PO (05:58)
[2024-04-05] MEDS: LIDOCAINE 4% PATCH TOPICAL (07:36)
[2024-04-05] MEDS: THIAMINE INJECTION 100 MG IV (07:37)
[2024-04-05] MEDS: NSS (PRESERVATIVE FREE) 10 ML IV (07:37)
[2024-04-05] MEDS: PROTONIX IV 40 MG IV (07:37)
[2024-04-05] MEDS: SUBUTEX 8 MG SL ×2 (07:37→20:33)
[2024-04-05 08:40] VITALS: BP 135/89
--- NOTE | 2024-04-05 09:54 | W.PN.GS2 ---
Today's Communication / Plan
-
-- No changes from surgical perspective, call with questions or concerns
Assessment / Plan
-
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
nausea and vomiting and low grade temps
Recent admission at [facility] where she reportedly had EGD/colonoscopy: records requested but not yet received
Recently left SNF ([facility]) to live with family
Difficult to discern the exact cause for her symptoms. Unlikely to be an adhesive SBO given lack of surgical history and age. No evidence of a hernia on exam or CT scan. Unlikely to be a mass given age. More likely to be related to IBD or drug
related. Likely component of dysmotility related to drugs as well.
XR stable 04/02
AFVSS
Severe protein calorie malnutrition noted: TPN started on 04/02
Steroids initiated on 04/02, starting to improve. Now passing flatus/stools
No role or plans for surgical intervention.
Plan:
--GI and ID following
--IV steroids, work-up and management of IBD per GI
--Clears, ADAT via GI
--TPN via Hospitalist or GI
--Please call with any questions or concerns
Subjective Data
-
Date of Service: April 05, 2024
Sleeping comfortably. No reports of worsening nausea or vomiting. Passing flatus and BMs.
Objective Data
-
Intake and Output
04/04/24 04/05/24 04/06/24
06:59 06:59 06:59
Intake Total 3502 / 3502 600 / 600
Output Total 640 / 640 700 / 700
Balance 2862 / 2862 -100 / -100
Intake:
Oral fluids 120 / 120 600 / 600
IV fluids (Total) 2338 / 2338
NSS bolus 1000 / 1000
Nss 1,000 ml @ 30 mls/hr IV . 120 / 120
Q24H [facility] Rx#:[id number]
Nss 1,000 ml @ 87 mls/hr IV . 1218 / 1218
[id number] [facility]ME Rx#:[id number]
IV piggybacks 240 / 240
TPN/PPN 684 / 684
Amount instilled into GI Tube ( 120 / 120
Total)
[place] Sump 120 / 120
Output:
Gastrointestinal tube output ( 150 / 150
Total)
[place] Sump 150 / 150
Urine, Alva 490 / 490 700 / 700
Vital Signs
Temp Pulse Resp BP Pulse Ox
98.3 F 63 13 135/89 97
04/05/24 07:05 04/05/24 08:40 04/05/24 08:40 04/05/24 08:40 04/05/24 08:00
Lab Results
04/04/24 05:01
04/05/24 04:49
Calcium 7.6 mg/dl (8.4-10.2) L 04/05/24 04:49
Phosphorus 2.6 mg/dl (2.5-4.5) 04/05/24 04:49
Magnesium 1.9 mg/dl (1.6-2.3) 04/05/24 04:49
Total Bilirubin 0.2 mg/dl (0.2-1.3) 04/04/24 05:03
AST 29 U/L (14-36) 04/04/24 05:03
ALT 29 U/L (0-35) 04/04/24 05:03
Alkaline Phosphatase 220 U/L (38-126) H 04/04/24 05:03
Total Protein 4.0 g/dl (6.3-8.2) L 04/04/24 05:03
Albumin 1.6 g/dl (3.5-5.0) L 04/04/24 05:03
Physical Exam
-
Gen: NAD
Abd: soft, tender diffusely, mild distension (improved), non-peritoneal
--- NOTE | 2024-04-05 10:24 | W.PN.HOSP.TC ---
Today's Communication/Plan
-
IV corticosteroids
Full liquid diet
Wean off TPN if tolerates diet.
Podiatry consultation to evaluate the right great toe ulcer.
Trial of voiding
Physical therapy evaluation
Wean off IV hydromorphone.
Continue Subutex
Assessment / Plan
Assessment / Plan
Impression.
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 Recently diagnosed Crohn's disease presented emergency room with
persistent abdominal pain and fever..
Persistent abdominal pain.
Partial small bowel obstruction secondary to Crohn's disease inflammatory stricture
Sepsis ruled out
Cirrhosis by records and imaging
Hepatitis C untreated.
Chronic normocytic anemia
Hypoalbuminemia
Multisubstance abuse opiate use disorder with history of IVDA on Suboxone [employer].
Acute urinary retention
Right foot/great toe ulcer
Plan:
Fever, leukocytosis, lactic acid elevation.
Concern for clinical sepsis
Possible sources, intra-abdominal, bacteremia with left upper extremity PICC line in place on admission, urinary.
Currently stable respiratory status.
Chest x-ray with no infiltrates.
Blood cultures negative to date
With negative ID workup, antibiotics discontinued.
Right great toe ulcer with exposed bone.
Will ask podiatry to see
Presentation with persistent abdominal pain
Concern for SBO.
CT scan in ED with oral contrast only:
1. Significant dilation of the proximal and mid small bowel, measuring up to 6.5 cm in diameter, with relative decompression of the distal small bowel and colon. Findings are suggestive of at least partial small intestinal obstruction, although
well-defined transition point is not appreciated.
2. Small amount of free fluid within the abdomen and pelvis.
3. No evidence of pneumatosis intestinalis or extraluminal air.
4. Mild nodularity of the hepatic contour, a nonspecific finding which may be seen in the setting of cirrhosis. Diffuse fatty infiltration of the liver.
? Partial SBO versus ileus, versus SBP (although minimal amount of free fluid on CT scan imaging)
Sepsis ruled out.
Small bowel obstruction suspected secondary to inflammatory stricture with known Crohn's disease
Initiated on IV steroids/Solu-Medrol.
Improved abdominal pain.
Diet has been advanced to full liquids
Initiated on TPN, wean off if tolerates diet
Cirrhosis by history and imaging (CT scan with hepatic nodularity)
Untreated hepatitis C reported
Ultrasound with minimal ascites
Hyperammonemia on admission not correlated with hepatic encephalopathy
Hold lactulose acutely monitoring mental status closely.
Hold Lasix and Aldactone
Right foot/great toe ulcer with exposed bone.
Podiatry consultation
Substance abuse with history of IVDA.
Urine drug screen positive for multiple substances
Continue Suboxone sublingual
Acute urinary retention.
Trial of voiding/bladder scan initiated on 04/05
DVT prophylaxis�subcu Lovenox
Full code
Anticipated Discharge: 24 - 48 hours
Subjective/Interval History
-
Date of Service: April 05, 2024
Objective Data
-
Labs:
Laboratory Results
04/05/24
04:49
Sodium 139
Potassium 5.0 D
Chloride 112 H
Carbon Dioxide 25
BUN 10
Creatinine 0.3 L
Glucose 108 H
Calcium 7.6 L
Vital Signs:
Vital Signs
Temp Pulse Resp BP Pulse Ox
98.3 F 63 13 135/89 97
04/05/24 07:05 04/05/24 08:40 04/05/24 08:40 04/05/24 08:40 04/05/24 08:00
I&O
04/04/24 04/05/24 04/06/24
06:59 06:59 06:59
Intake Total 3502 / 3502 600 / 600
Output Total 640 / 640 700 / 700
Balance 2862 / 2862 -100 / -100
Physical Exam
-
General: Well Developed and No Apparent Distress
HEENT: Normocephalic, Atraumatic and Moist Mucous Membranes
Respiratory: Clear to Auscultation
Cardiac: Regular Rhythm and S1/S2; Negative Murmur, Rub or Gallop
GI: Soft, Nontender, Nondistended and Normal Bowel Sounds; Negative Organomegaly
Rectal: Deferred by Provider
Musculoskeletal: No Clubbing, No Cyanosis and No Edema
Skin: Negative Rash
Neuro: Nonfocal/Grossly Intact
--- NOTE | 2024-04-05 10:56 | PN.CDI ---
CDI
- -
CDI:
Physician Documentation Request
Admit Date: 04/01/24 02:00
Dear Doctor Forest,
Please review the following and provide your response in the progress notes.
Clinical Indicators:
04/04/24 15:16 - Wound Note
#Wound Location and type/assessment:
#...Patient admitted with: R upper arm amp with small dermal ulcer.
#...R ischial stage 2 small pressure injury.
#...Sacral/buttocks linear discolored stage 1 and 2 pressure injuries.
#R distal great toe dry pink ulcer with hard off white tissue (unsure if probes to bone).
Physician documentation of the type and location of wounds is required for compliant documentation. Based on the above clinical findings and your assessment, please provide the following in your progress note:
Right ischium stage 2 pressure injury and sacrum/buttocks stage 1/stage 2 pressure injuries, POA
Right ischium stage 2 PI, only
Sacrum/Buttocks stage 1/stage 2 pressure injuries, only
Other (please specify)
1. Location of the ulcer/wound, including laterality.
2. Type (etiology) of ulcer/wound:
- Diabetic ulcer
- Arterial (ischemic) ulcer
- Traumatic wound
- Venous stasis ulcer
- Pressure (decubitus) ulcer
3. If a pressure ulcer, please also include the stage* of the ulcer:
- Stage 1 - Skin intact, non-blanchable redness
- Stage 2 - Partial thickness loss of dermis, includes intact or open blister
- Stage 3 - Full thickness tissue not including bone, tendon or muscle
Use of terms such as suspected, likely, concern for, or probable (associated with a specific diagnosis that is being evaluated, monitored, or treated as if it exists) are acceptable and can be coded in the inpatient setting, when documented at the
time of discharge.
Thank you,
Tonya Melissa RN BSN CCDS
CDI Specialist
please contact via tiger text
Please use your independent medical judgment in providing your response.
*Source: National Pressure Ulcer Advisory Panel (NPUAP)
[2024-04-05 12:10] LABS: Glucose - Point of Care 103 mg/dl (70-99)
--- NOTE | 2024-04-05 13:20 | PTCARENOTE ---
Patient stated she would like her mother listed as primary contact and father listed as secondary. Mother's name Carolynn Macias: [phone]. She would like her mother to receive update as well. [facility] text with information sent to Dr Garg.
Admissions called and updated contacts.
--- NOTE | 2024-04-05 15:10 | W.PN.GI.CBS2 ---
Today's Communication / Plan
-
Full liquid diet. Advance as tolerated
Switch to oral steroid tomorrow
Assessment / Plan
-
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
the ED from rehab facility for abdominal pain and distention. Patient is a limited historian so the majority of patient history is obtained from prior records. Patient was previously living in [place], with recent admission at [facility] in November
2023 for similar abdominal pain and states she had both endoscopy and colonoscopy and was diagnosed with Crohn's disease. She does have a prior history of small bowel obstruction, but denies any prior abdominal surgeries. Reportedly, SBO had
previously improved with NGT and resolved without surgical intervention. Patient denies any diarrhea. She never followed up with GI. She has never been on any treatment for Crohn's, other than prednisone. She also has known Hepatitis C, never
treated.
NGT currently in place. Labs in ER reviewed, which showed leukocytosis with WBC count of 17. Lactic acid 2.4. Hemoglobin 10.1, normal MCV, platelets 210. LFTs: T. bili 0.3, AST 70, ALT 42, alk phos 251, and albumin 1.8. PT 17.1, INR 1.42.
C-reactive protein elevated, 33.7. CT of the abdomen and pelvis shows distention of the stomach and duodenum, dilated loops of small bowel and decompressed distal small bowel suggestive of distal small bowel obstruction. She was afebrile in the ER,
but temperature did increase to 100.9 today, 04/01/2024. Blood cultures pending. She has been started on IV antibiotics, Zosyn. Infectious Disease and Surgery have also been consulted.
IMPRESSION / PLAN:
-- Abdominal Pain, secondary to SBO/partial bowel obstruction/newly diagnosed Crohn's
( Abdominal pain, nausea and vomiting, requiring NG tube decompression -now removed )
Reported history of inflammatory bowel disease, questionable Crohn's diagnosed in November 2023 at [facility] for similar presentation.
Still no records from [facility]- she had EGD/colonoscoppy there. She reports she has appointment with GI at [place] 05/19- will have to move it up to sooner. She is looking to go to a rehab place close to [place].
04/02/24 started Solu-Medrol 20 mg every 8 hours for possible small bowel Crohn's
(Blood cultures negative so far. Currently on antibiotics per ID)
-History of hepatitis C, untreated. No evidence of decompensation at this time.
Hepatitis B surface antigen negative but antibody positive suggesting immunity. Hepatitis A antibody total positive as well. Hepatitis C antibody is reactive, await HCV RNA.
As per pt, she was diagnosed with Hep C 14 yrs ago, started treatment but was not able to finish. Will need OP hepatology eval.
plan
Full liquid diet then okay to advance diet as tolerated
Medical team to wean off TPN
If tolerating diet okay to switch to prednisone 40 mg daily tomorrow then taper off on discharge (5 mg weekly until seen by GI as outpatient)
Patient needs to follow-up with her GI at [place] to discuss about maintenance therapy for Crohn's disease/management of hep C (I advised her to call the office )
Subjective
Subjective
Date of Service: April 05, 2024
Feeling better. Denies any abdominal pain/nausea/vomiting. Tolerating current diet
Objective
Data Reviewed
Laboratory Data:
Laboratory Results
04/04/24 05:01
04/05/24 04:49
Laboratory Results
PT 17.1 Sec (11.4-14.6) H 04/01/24 07:38
INR 1.42 04/01/24 07:38
Phosphorus 2.6 mg/dl (2.5-4.5) 04/05/24 04:49
Magnesium 1.9 mg/dl (1.6-2.3) 04/05/24 04:49
Total Bilirubin 0.2 mg/dl (0.2-1.3) 04/04/24 05:03
AST 29 U/L (14-36) 04/04/24 05:03
ALT 29 U/L (0-35) 04/04/24 05:03
Alkaline Phosphatase 220 U/L (38-126) H 04/04/24 05:03
Lipase 18 U/L (23-300) L 03/31/24 22:16
Vital Signs and I&O:
Vital Signs
Temp Pulse Resp BP Pulse Ox
98.3 F 63 13 135/89 97
04/05/24 07:05 04/05/24 08:40 04/05/24 08:40 04/05/24 08:40 04/05/24 08:00
I&O
04/04/24 04/05/24 04/06/24
06:59 06:59 06:59
Intake Total 3502 / 3502 600 / 600
Output Total 640 / 640 700 / 700
Balance 2862 / 2862 -100 / -100
Physical Exam
Physical Exam
GI: Soft, Non Distended and Non Tender
[2024-04-05 16:31] VITALS: BP 136/93
--- NOTE | 2024-04-05 17:02 | PTCARENOTE ---
Patient AOx3. Patient advanced to full liquid diet and tolerating well. TPN running per order through L arm PICC. Alva removed and has voided since removal. Incontinent both bowel and bladder. Assist x2 stand and pivot to chair. See worklist for
full assessment.
[2024-04-05] MEDS: LOVENOX 40 MG SC (17:19)
[2024-04-05 17:55] LABS: Glucose - Point of Care 118 mg/dl (70-99)
--- NOTE | 2024-04-05 18:32 | PTCARENOTE ---
1815: Transferred patient to 2S per order with 2 RN's. Report given to Adilia HARGROVE. Patient belongings transferred with patient.
[2024-04-05 18:40] VITALS: BP 171/83
--- NOTE | 2024-04-05 18:43 | PTCARENOTE ---
Received patient from IMU via bed around 1830 in stable condition. Patient oriented to room. Call ferguson in place.
--- NOTE | 2024-04-05 22:08 | CON.SURG ---
Surgical Consultation
-
History of Present Illness
This is a 34-year-old female with past medical history of hep C cirrhosis, GERD, Crohn's disease, who presents to the from rehab for abdominal distension. The patient has been admitted and is being managed primarily for GI complications. Podiatry
has been consulted for right hallux chronic wound that has been present for multiple months. She does not have much sensation in her feet and is unaware of how or when the wound started. She does not that she had a previous MRI of her right foot
which 'showed no infection.' Patient has a history of IV drug abuse and RUE amputation.
Medical History
Past Medical History
Past Medical History: Reports GERD and Other (Cirrhosis of the liver)
Additional Past Medical History:
Crohn's
Past Surgical History: Reports Other (Unable to determine)
Social History
Tobacco: Other (Unable to determine)
Alcohol: None
Drug: Former User
Personal: Single
Living: Other (Rehab)
Employment: Disabled
Family History
Family History: Not pertinent
Allergies / Home Medications
Allergies reflects when Allergies were last updated in [employer].
Home Medications with original date entered in [employer]
Allergy/Medication List:
Allergies
Allergy/AdvReac Type Severity Reaction Status Date / Time
No Known Allergies Allergy Verified 03/31/24 20:28
Home Medications
acetaminophen 500 mg tablet 1,000 mg PO Q8HPRN PRN mild pain 03/30/24
ascorbic acid (vitamin C) 500 mg tablet (Vitamin C) 500 mg PO DAILY 03/30/24
bisacodyl 5 mg tablet 5 mg PO DAILYPRN PRN constipation 03/30/24
buprenorphine 8 mg-naloxone 2 mg sublingual film (Suboxone) 1 film buccal BID 03/30/24
dicyclomine 10 mg capsule 10 mg PO Q6HPRN PRN treatment of functiona/ibs 03/30/24
docusate sodium 100 mg capsule 100 mg PO BID 03/30/24
doxycycline monohydrate 100 mg capsule 100 mg PO BID 03/30/24
enoxaparin 30 mg/0.3 mL subcutaneous syringe (Lovenox) 30 mg SC DAILY 03/30/24
ferrous sulfate 325 mg (65 mg iron) tablet 325 mg PO DAILY 03/30/24
furosemide 20 mg tablet (Lasix) 20 mg PO BID 03/30/24
gabapentin 100 mg capsule 100 mg PO Q8 03/30/24
lactulose 20 gram/30 mL oral solution 20 g PO TID 03/30/24
lidocaine 4 % topical patch 1 patch topical DAILY left shoulder 03/30/24
loperamide 2 mg tablet 2 mg PO Q6HPRN PRN diarrhea 03/30/24
magnesium oxide 400 mg PO DAILY 03/30/24
mirtazapine 7.5 mg tablet 7.5 mg PO HS 03/30/24
naloxone 4 mg/actuation nasal spray 4 mg intranasal Q2MPRN PRN opioid overdose 03/30/24
ondansetron HCl 4 mg tablet 4 mg PO Q8HPRN PRN nausea 03/30/24
pantoprazole 40 mg tablet,delayed release 40 mg PO DAILY 03/30/24
potassium chloride 20 mEq tablet,extended release 20 meq PO DAILY 03/30/24
prednisone 50 mg tablet 50 mg PO DAILY 03/30/24
quetiapine 25 mg tablet 25 mg PO BID 03/30/24
scopolamine base 1 mg over 3 days transdermal patch 1 patch transdermal Q3D 03/30/24
sennosides 8.6 mg tablet (senna) 8.6 mg PO DAILY 03/30/24
sodium chloride 0.9 % (flush) (Normal Saline Flush 0.9 % injection syringe) 10 ml IV TID 03/30/24
spironolactone 50 mg tablet (Aldactone) 50 mg PO DAILY 03/30/24
thiamine HCl (vitamin B1) 100 mg tablet 100 mg PO DAILY 03/30/24
zinc sulfate 50 mg zinc (220 mg) capsule 50 mg PO DAILY 03/30/24
Review of Systems
-
History Source: Patient
Constitutional: Reports No Symptoms
EENT: Reports No Symptoms
Respiratory: Reports No Symptoms
Cardiac: Reports No Symptoms
Abdomen/GI: Reports Abdominal Pain and Vomiting
: Reports No Symptoms
Musculoskeletal: Reports No Symptoms
Skin: Reports No Symptoms
Neurological: Reports No Symptoms
Endocrine: Reports No Symptoms
Hematologic/Lymphatic: Reports No Symptoms
Psych: Reports No Symptoms
Physical Exam
Vital Signs
Vital Signs
Temp Pulse Resp BP Pulse Ox
97.8 F 97 18 102/88 97
03/31/24 20:29 04/01/24 01:15 04/01/24 01:15 03/31/24 22:00 04/01/24 00:00
Physical Exam
General: Appears Chronically Ill
HEENT: NormoCephalic, Anicteric, Moist mucous membranes, Atraumatic and PERRLA
Respiratory: Clear
Cardiac: S1/S2 and Regular Rhythm
Breast: Deferred by me
GI: Soft, Tender and Distended
Rectal: Deferred by Provider
Genito-urinary: Deferred by me
Musculoskeletal: No Clubbing, No Cyanosis, Edema, Left Lower Extremity (1+ pedal edema), Edema, Right Lower Extremity (1 + pedal edema) and Other (R upper extremity amputation)
Skin: Warm
Neuro: AO x 3
Hematologic/Lymphatic: No Lymphadenopathy
Psych: Calm
Right Lower Extremity Exam
-DP/PT pulses 2/4, capillary refill < 3 seconds
-Diffuse pitting edema noted to right foot
-Fibrotic wound noted to distal tip of right hallux which probes to periosteum. Scant purulent drainage with no crepitus, fluctuance, or proximal streaking.
Laboratory Results
-
03/31/24 22:16
03/31/24 22:16
Laboratory Results
Lactic Acid 2.4 mmol/L (0.7-2.0) H 03/31/24 22:47
Total Bilirubin 0.3 mg/dl (0.2-1.3) 03/31/24 22:16
AST 53 U/L (14-36) H 03/31/24 22:16
ALT 41 U/L (0-35) H 03/31/24 22:16
Alkaline Phosphatase 216 U/L (38-126) H 03/31/24 22:16
Lipase 18 U/L (23-300) L 03/31/24 22:16
Data Reviewed
-
Diagnostic Radiology: Image Personally Visualized and interpreted
CT Scan: Report Reviewed by me
Lab Data: Labs Reviewed by me
Old Records: Reviewed
Impression/Plan
Patient presents with chronic right hallux wound. Radiographs are concerning for early osteomyelitis and patient has persistent leukocytosis. Despite this, patient has no signs of acute infectious process.
-Patient seen and evaluated at bedside
-Recommend right foot MRI without contrast
-Recommend forefoot offloading
-Podiatric plan pending MRI findings
-Will continue to follow
[2024-04-05 23:40] VITALS: BP 122/87
[2024-04-06] MEDS: SOLU-MEDROL PF 20 MG IV (00:42)
[2024-04-06] MEDS: FLUSH (NSS) 2 FLUSH IV ×2 (00:46→08:12)
[2024-04-06 05:52] VITALS: BMI 27.5
[2024-04-06 07:08] VITALS: BP 117/62
[2024-04-06 07:14] LABS: Glucose - Point of Care 97 mg/dl (70-99)
[2024-04-06] MEDS: LIDOCAINE 4% PATCH TOPICAL (08:09)
[2024-04-06] MEDS: NSS (PRESERVATIVE FREE) 10 ML IV (08:10)
[2024-04-06] MEDS: PROTONIX IV 40 MG IV (08:10)
[2024-04-06] MEDS: THIAMINE INJECTION 100 MG IV (08:11)
[2024-04-06] MEDS: SUBUTEX 8 MG SL ×2 (08:13→21:22)
--- NOTE | 2024-04-06 09:53 | W.PN.GI.CBS2 ---
Today's Communication / Plan
-
low residual diet
will switch to oral steroid
follow up with GI at [facility] as outpatient
Assessment / Plan
-
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
the ED from rehab facility for abdominal pain and distention. Patient is a limited historian so the majority of patient history is obtained from prior records. Patient was previously living in [place], with recent admission at [facility] in November
2023 for similar abdominal pain and states she had both endoscopy and colonoscopy and was diagnosed with Crohn's disease. She does have a prior history of small bowel obstruction, but denies any prior abdominal surgeries. Reportedly, SBO had
previously improved with NGT and resolved without surgical intervention. Patient denies any diarrhea. She never followed up with GI. She has never been on any treatment for Crohn's, other than prednisone. She also has known Hepatitis C, never
treated.
NGT currently in place. Labs in ER reviewed, which showed leukocytosis with WBC count of 17. Lactic acid 2.4. Hemoglobin 10.1, normal MCV, platelets 210. LFTs: T. bili 0.3, AST 70, ALT 42, alk phos 251, and albumin 1.8. PT 17.1, INR 1.42.
C-reactive protein elevated, 33.7. CT of the abdomen and pelvis shows distention of the stomach and duodenum, dilated loops of small bowel and decompressed distal small bowel suggestive of distal small bowel obstruction. She was afebrile in the ER,
but temperature did increase to 100.9 today, 04/01/2024. Blood cultures pending. She has been started on IV antibiotics, Zosyn. Infectious Disease and Surgery have also been consulted.
IMPRESSION / PLAN:
-- Abdominal Pain, secondary to SBO/partial bowel obstruction/newly diagnosed Crohn's
( Abdominal pain, nausea and vomiting, requiring NG tube decompression -now removed )
Reported history of inflammatory bowel disease, questionable Crohn's diagnosed in November 2023 at [facility] for similar presentation.
Still no records from [facility]- she had EGD/colonoscoppy there. She reports she has appointment with GI at [facility] 05/19- will have to move it up to sooner. She is looking to go to a rehab place close to [place].
04/02/24 started Solu-Medrol 20 mg every 8 hours for possible small bowel Crohn's
(Blood cultures negative so far. Currently on antibiotics per ID)
-History of hepatitis C, untreated. No evidence of decompensation at this time.
Hepatitis B surface antigen negative but antibody positive suggesting immunity. Hepatitis A antibody total positive as well. Hepatitis C antibody is reactive, await HCV RNA.
As per pt, she was diagnosed with Hep C 14 yrs ago, started treatment but was not able to finish. Will need OP hepatology eval.
plan
low residual diet . Off TPN now
switch to prednisone 40 mg daily then taper off on discharge (5 mg weekly until seen by GI as outpatient)
Patient needs to follow-up with her GI at [facility] to discuss about maintenance therapy for Crohn's disease/management of hep C (I advised her to call the GI office on discharge )
will s/o. call us back if any questions
Total Time Spent with Patient (in minutes): 35
Subjective
Subjective
Date of Service: April 06, 2024
doing better. denies any abd pain/ N/V. tolerating liquid diet. passing flatus
Objective
Data Reviewed
Laboratory Data:
Laboratory Results
04/04/24 05:01
04/05/24 04:49
Laboratory Results
PT 17.1 Sec (11.4-14.6) H 04/01/24 07:38
INR 1.42 04/01/24 07:38
Phosphorus 2.6 mg/dl (2.5-4.5) 04/05/24 04:49
Magnesium 1.9 mg/dl (1.6-2.3) 04/05/24 04:49
Total Bilirubin 0.2 mg/dl (0.2-1.3) 04/04/24 05:03
AST 29 U/L (14-36) 04/04/24 05:03
ALT 29 U/L (0-35) 04/04/24 05:03
Alkaline Phosphatase 220 U/L (38-126) H 04/04/24 05:03
Lipase 18 U/L (23-300) L 03/31/24 22:16
Vital Signs and I&O:
Vital Signs
Temp Pulse Resp BP Pulse Ox
97.8 F 60 15 117/62 100
04/06/24 07:08 04/06/24 07:08 04/06/24 07:08 04/06/24 07:08 04/06/24 07:08
I&O
04/05/24 04/06/24 04/07/24
06:59 06:59 06:59
Intake Total 600 / 600 1680 / 1680
Output Total 700 / 700 1150 / 1150
Balance -100 / -100 530 / 530
Physical Exam
Physical Exam
GI: Soft, Non Distended and Non Tender
[2024-04-06] MEDS: DELTASONE 40 MG PO (10:14)
[2024-04-06] MEDS: SOLU-MEDROL PF IV (10:15)
[2024-04-06 12:16] LABS: Glucose - Point of Care 100 mg/dl (70-99)
--- NOTE | 2024-04-06 14:23 | CON.MD ---
Consultation - Medical
-
Referring Provider:�Dr. Eran Garg
Chief Complaint:�Debility
�
History of Present Illness:�34-year-old female with PMH (as below) presented to [facility] on 04/01/2024 with abdominal distention and found to have a small bowel obstruction. She was made n.p.o. and placed on TPN. History taken from
chart which was taken from her father due to patient's poor history. She is evaluated by surgery and felt to be a poor surgical candidate. The bowel obstruction resolved and she was able to tolerate p.o. initially but but eventually declined.
Noted with a chronic right hallux wound evaluated by podiatry with plan for MRI without contrast and forefoot offloading.
�
Past Medical History:�Hepatitis C, GERD, Crohn's disease, history of IV drug abuse
Procedure History:�Right upper extremity amputation secondary to IV drug abuse
Family History:�
�
Social History:�
Functional Level Premorbidly:�Independent with all activities�
Functional Level Currently:�Max assist sit to stand, mod assist stand to sit. Dependent for toileting, max assist lower extremity self-care
�
Tobacco:�Denies�
Alcohol:�Denies�
Drug use:�Denies�
�
Lives with:�Unclear, current plan is for her to go to skilled rehab with transition to a long-term care facility.
Occupation:�Disability
�
Allergies:�
Allergy/AdvReac Type Severity Reaction Status Date / Time
No Known Allergies Allergy Verified 03/31/24 20:28
�
Review of Systems:�
Constitutional: (x) abNormal _fatigue
Eye: (x) Normal _
Ear/Nose/Throat: (x) Normal _
Respiratory: (x) Normal _
Cardiovascular: (x) Normal _
Gastrointestinal: (x) Normal _
Genitourinary: (x) Normal _
Musculoskeletal: (x) Normal _
Integumentary: (x) abNormal _right toe wound
Neurologic: (x) abNormal _neuropathy in legs
Psychiatric: (x) Normal _
Endocrine: (x) Normal _
Hematologic/Lymphatic: (x) Normal _
Allergic/Immunologic: (x) Normal _
�
Medications:�
Active Current Visit Medication List
Category Date Time Status
0.9% Sodium Chloride [Nss (Preservative Free)] Med 04/01/24 08:00 Active
10 ml IV DAILY
Benzocaine/Menthol [Anesthetic Lozenge] Med 04/03/24 20:14 Active
1 lozenge PO Q2HPRN PRN
Buprenorphine [Subutex] Med 04/01/24 20:00 Active
8 mg SL BID
Dextrose 50%-Water [Dextrose 50% Syringe] Med 04/03/24 09:01 Active
12.5 grams IV [id number] PRN
Enoxaparin Sodium [Lovenox] Med 04/02/24 18:00 Active
40 mg SC QPM
Flush (0.9% Sodium Chloride) [Flush (Nss)] Med 04/01/24 02:00 Active
See Dose Instructions IV PER PROTOCOL
Gabapentin [Neurontin] Med 04/01/24 08:00 Hold
100 mg PO Q8
Glucagon [GlucaGen] Med 04/03/24 09:01 Active
1 mg IM PRN PRN
Insulin Aspart Corrective Mod [Novolog Flexpen-Moderate Med 04/06/24 07:30 Active
Resistance]
See Protocol SC AC
Lidocaine [Lidocaine 4% Patch] Med 04/01/24 08:00 Active
1 patch TOPICAL DAILY
MethylPREDNISolone PF [Solu-Medrol Pf] Med 04/02/24 09:30 Active
20 mg IV Q8H
Ondansetron Injectable [Zofran] Med 04/01/24 02:13 Active
4 mg IV Q6HPRN PRN
Pantoprazole [Protonix IV] Med 04/01/24 08:00 Active
40 mg IV DAILY
Quetiapine Fumarate [Seroquel] Med 04/01/24 08:00 Hold
25 mg PO BID
Thiamine Injection Med 04/01/24 08:00 Active
100 mg IV DAILY
�
Vitals:�
Temp Pulse Resp BP Pulse Ox
97.8 F 60 15 117/62 100
04/06/24 07:08 04/06/24 07:08 04/06/24 07:08 04/06/24 07:08 04/06/24 07:08
Height 5 ft 1 in
Actual Weight 66 kg
Body Mass Index (BMI) 27.5
�
Physical Exam:�
General Appearance/Observation: Female lying in bed in no apparent distress.�
Pain/Comfort Assessment: Denies�
Mood/Affect: Appropriate�
�
Integumentary/Operative Site:�Has some open area of skin right distal big toe.
Eyes: Conjunctiva/Lids: normal���� Pupils: pupils equal round and reactive to light
Cardiovascular: Heart: regular, no murmur�
Pulses: dorsalis pedis palpable bilaterally�
Respiratory: Respiratory Effort/Chest Expansion: normal������� Auscultation: Clear to auscultation bilaterally�
Gastrointestinal: abdomen not tender, no distension, normal abdominal bowel sounds
Genitourinary: No Alva,clear yellow urine in purewick
Extremities:�Edema: moderate both legsCyanosis: None�Trophic�changes: Both legs
�
Neurology Exam:
Orientation: Alert, Oriented to self, Time, Place�
Memory: Intact for recent medical concerns
Repetition: Intact
Comprehension: Intact
Two step command: Intact
Cranial Nerves:
�� CNII:�Pupillary light reflex: Intact���
�� CN III, IV, : Extraocular muscles: Intact�
�� CN VII:�Facial movement: Symmetric
�� CN VIII:�Hearing: Normal
�� CN IX/X:�Speech & swallow: Normal
Sensory:
�� Light touch: Decreased in both lower extremities
�
Musculoskeletal: Motor: (Manual muscle scale 0-5)�
Muscle SA EF WE EE FF FA HF KE DF EHL PF
Right� 5 - - - - - 2 2 1 1 1
Left 4 5 5 4 5 4 2 2 1 1 1
�
Range of Motion: Decreased dorsiflexion both ankles, has some decreased motion in both legs
�
Lab Results
Laboratory Data
04/04/24 05:01
04/05/24 04:49
PT 17.1 Sec (11.4-14.6) H 04/01/24 07:38
INR 1.42 04/01/24 07:38
Total Bilirubin 0.2 mg/dl (0.2-1.3) 04/04/24 05:03
AST 29 U/L (14-36) 04/04/24 05:03
ALT 29 U/L (0-35) 04/04/24 05:03
Alkaline Phosphatase 220 U/L (38-126) H 04/04/24 05:03
Total Protein 4.0 g/dl (6.3-8.2) L 04/04/24 05:03
Albumin 1.6 g/dl (3.5-5.0) L 04/04/24 05:03
�
Diagnostic Results:�as per HPI�
�
Assessment
34-year-old right-handed female [facility] (Hepatitis C, GERD, Crohn's disease, history of IV drug abuse) with 04/01/2024 small bowel obstruction nonoperative as well as a chronic right hallux wound undergoing workup for infection
with ADL and ambulatory dysfunction.
Plan�
PM&R�PT/OT to increase independence with ADLs, improve balance, coordination, endurance, strength, mobility, community reintegration, decreased burden of care on others and family education.�
�
Small bowel obstruction: Nonoperative, transitioning off of TPN and working on tolerating diet.�
Peripheral polyneuropathy: Patient at risk of falling with significant neuropathy.�
Right toe wound: Workup per podiatry, offloading right forefoot.
Anemia: Likely multifactorial.� Recent drop to 7.9 from 9.7. Management per primary team. Continue to monitor.�
Psych: Psychology consult.� Monitor mood, adjust medications as needed.�
Skin: monitor for pressure sores/rashes/lesions.�
Bowel: Colace and Senna, PRN bisacodyl.�
Bladder: Time void, PVRs, PRN straight cath.�
History of drug abuse: buprenorphine
GI Prophylaxis: Pantoprazole�
DVT Prophylaxis: Mechanical and Lovenox.�
Pulmonary: Incentive spirometry�
Safety: Continue to reinforce assistance with all transfers.�
Code Status:� Full code
Dispo�(date/plan/equipment needs): Home with family care.� Social history reviewed.�
Functional and Medical Goals:�Modified Independent with ADL�s, ambulation, transfers�
Discharge Destination:�long term facility with plan for long-term care
�
Summary of recommendations:
-�Discharge on destination:�long term facility with plan for long-term care
Small bowel obstruction: Nonoperative, transitioning off of TPN and working on tolerating diet.�
Peripheral polyneuropathy: Patient at risk of falling with significant neuropathy.�
Right toe wound: Workup per podiatry, offloading right forefoot.
Anemia: Likely multifactorial.� Recent drop to 7.9 from 9.7. Management per primary team. Continue to monitor.�
�
Thank you for allowing me to care for your patient. Please contact me with any questions or concerns.
--- NOTE | 2024-04-06 14:30 | CM ---
Case management following for discharge planning
Chart reviewed
Received call from pts father [phone] [facility] - Requested update regarding SNF options
Currently referral under review by requested facilities - father aware
Spoke with pt - discussed making more referrals for SNF - pt agreeable to plan
Will send additional referrals in Care Port
Will need auth
Plan - anticipate snf when bed obtained and medically ready
[2024-04-06 15:17] VITALS: BP 98/62
--- NOTE | 2024-04-06 15:35 | W.PN.HOSP.TC ---
Today's Communication/Plan
-
Advance diet
Transition to oral steroid taper
MRI of the right foot to assess for osteomyelitis
Assessment / Plan
Assessment / Plan
Impression.
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 Recently diagnosed Crohn's disease presented emergency room with
persistent abdominal pain and fever..
Persistent abdominal pain.
Partial small bowel obstruction secondary to Crohn's disease inflammatory stricture
Sepsis ruled out
Cirrhosis by records and imaging
Hepatitis C untreated.
Chronic normocytic anemia
Hypoalbuminemia
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
Acute urinary retention
Right foot/great toe ulcer
Plan:
Fever, leukocytosis, lactic acid elevation.
Concern for clinical sepsis
Possible sources, intra-abdominal, bacteremia with left upper extremity PICC line in place on admission, urinary.
Currently stable respiratory status.
Chest x-ray with no infiltrates.
Blood cultures negative to date
With negative ID workup, antibiotics discontinued.
Right great toe ulcer with exposed bone.
Will ask podiatry to see
Presentation with persistent abdominal pain
Concern for SBO.
CT scan in ED with oral contrast only:
1. Significant dilation of the proximal and mid small bowel, measuring up to 6.5 cm in diameter, with relative decompression of the distal small bowel and colon. Findings are suggestive of at least partial small intestinal obstruction, although
well-defined transition point is not appreciated.
2. Small amount of free fluid within the abdomen and pelvis.
3. No evidence of pneumatosis intestinalis or extraluminal air.
4. Mild nodularity of the hepatic contour, a nonspecific finding which may be seen in the setting of cirrhosis. Diffuse fatty infiltration of the liver.
? Partial SBO versus ileus, versus SBP (although minimal amount of free fluid on CT scan imaging)
Small bowel obstruction suspected secondary to inflammatory stricture with known Crohn's disease.
No clinical evidence of sepsis.
Off antibiotics
Diet has been advanced to low residue.
Systemic steroids transition to oral prednisone with slow taper.
Cirrhosis by history and imaging (CT scan with hepatic nodularity)
Untreated hepatitis C reported
Ultrasound with minimal ascites
Hyperammonemia on admission not correlated with hepatic encephalopathy
Hold lactulose acutely monitoring mental status closely.
Hold Lasix and Aldactone
Right foot/great toe ulcer with exposed bone.
X-ray with concern for?
Podiatry consultation appreciated
MRI
Substance abuse with history of IVDA.
Urine drug screen positive for multiple substances
Continue Suboxone sublingual
Acute urinary retention.
Trial of voiding/bladder scan initiated on 04/05
DVT prophylaxis�subcu Lovenox
Full code
Anticipated Discharge: 24 - 48 hours
Subjective/Interval History
-
Date of Service: April 06, 2024
Objective Data
-
Vital Signs:
Vital Signs
Temp Pulse Resp BP Pulse Ox
98.1 F 65 14 98/62 99
04/06/24 15:17 04/06/24 15:17 04/06/24 15:17 04/06/24 15:17 04/06/24 15:17
I&O
04/05/24 04/06/24 04/07/24
06:59 06:59 06:59
Intake Total 600 / 600 1680 / 1680
Output Total 700 / 700 1150 / 1150
Balance -100 / -100 530 / 530
Physical Exam
-
General: Well Developed and No Apparent Distress
HEENT: Normocephalic, Atraumatic and Moist Mucous Membranes
Respiratory: Clear to Auscultation
Cardiac: Regular Rhythm and S1/S2; Negative Murmur, Rub or Gallop
GI: Soft, Nontender, Nondistended and Normal Bowel Sounds; Negative Organomegaly
Rectal: Deferred by Provider
Musculoskeletal: No Clubbing, No Cyanosis and No Edema
Skin: Negative Rash
Neuro: Nonfocal/Grossly Intact
[2024-04-06 18:18] LABS: Glucose - Point of Care 99 mg/dl (70-99)
[2024-04-06] MEDS: LOVENOX 40 MG SC (18:26)
[2024-04-06 21:44] LABS: Glucose - Point of Care 105 mg/dl (70-99)
[2024-04-06 23:30] VITALS: BP 120/75
[2024-04-07 00:35] VITALS: BP 111/70
[2024-04-07 06:00] VITALS: BMI 27.1
[2024-04-07 07:24] VITALS: BP 130/69
[2024-04-07 08:52] LABS: Glucose - Point of Care 82 mg/dl (70-99)
[2024-04-07] MEDS: DELTASONE 40 MG PO (08:58)
[2024-04-07] MEDS: LIDOCAINE 4% PATCH TOPICAL (08:58)
[2024-04-07] MEDS: PROTONIX 40 MG PO (08:58)
[2024-04-07] MEDS: THIAMINE INJECTION 100 MG IV (08:58)
[2024-04-07] MEDS: SUBUTEX 8 MG SL ×2 (08:58→20:29)
[2024-04-07 10:55] LABS: Calprotectin, Fecal >3000 ug/g (<=49)
--- NOTE | 2024-04-07 11:19 | CM ---
Reviewed the chart notes and spoke with the patient and her father at the bedside. Reviewed referrals that was sent yesterday. Patient and father request that a facility will need to be close to public transportation in order for the family to
visit as they do not drive. Additional referrals sent today. CM continues to be available to patient/family and is monitoring medical plan for needs at discharge.
Plan: Discharge to SNF/rehab with possibility of senior care once a bed found and an auth obtained.
[2024-04-07 12:02] LABS: Glucose - Point of Care 106 mg/dl (70-99)
--- NOTE | 2024-04-07 15:19 | W.PN.SURGUPD ---
Surgical Update
Surgical Update
Patient presents with chronic right hallux wound concerning for osteomyelitis.
-Patient seen and evaluated at bedside
-R MRI concerning for distal tuft osteomyelitis
-Plan for R partial hallux amputation tomorrow 04/08
-Please make patient NPO at midnight
-Previous UDS cocaine+, will check new UDS
--- NOTE | 2024-04-07 15:35 | PTCARENOTE ---
Patient lower abdomen distended and swollen. Patient bladder scanned for 367ml. MD at bedside. MD instructed to do a post void residual. Patient with 20 ml post strightcath. Repeat UDS sent down.
[2024-04-07 15:50] VITALS: BP 139/75
[2024-04-07 16:05] LABS: Amphetamines Negative (Negative); Barbiturates Negative (Negative); Benzodiazepines Negative (Negative); Buprenorphine Positive (Negative); Cocaine Negative (Negative); Marijuana Negative (Negative); Methadone Negative (Negative); Methamphetamines Negative (Negative); Opiates Negative (Negative); Phencyclidine Negative (Negative); Tricyclic Antidepressants Negative (Negative)
--- NOTE | 2024-04-07 16:11 | W.PN.HOSP.TC ---
Today's Communication/Plan
-
Diet has been advanced
Continue steroid taper
Plan is for right partial hallux amputation 04/08. N.p.o. postmidnight.
Assessment / Plan
Assessment / Plan
Impression.
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 Recently diagnosed Crohn's disease presented emergency room with
persistent abdominal pain and fever..
Persistent abdominal pain.
Partial small bowel obstruction secondary to Crohn's disease inflammatory stricture
Sepsis ruled out
Cirrhosis by records and imaging
Hepatitis C untreated.
Chronic normocytic anemia
Hypoalbuminemia
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
Acute urinary retention
Right foot/great toe ulcer
Plan:
Fever, leukocytosis, lactic acid elevation.
Concern for clinical sepsis
Possible sources, intra-abdominal, bacteremia with left upper extremity PICC line in place on admission, urinary.
Currently stable respiratory status.
Chest x-ray with no infiltrates.
Blood cultures negative to date
With negative ID workup, antibiotics discontinued.
Right great toe ulcer with exposed bone.
Will ask podiatry to see
Presentation with persistent abdominal pain
Concern for SBO.
CT scan in ED with oral contrast only:
1. Significant dilation of the proximal and mid small bowel, measuring up to 6.5 cm in diameter, with relative decompression of the distal small bowel and colon. Findings are suggestive of at least partial small intestinal obstruction, although
well-defined transition point is not appreciated.
2. Small amount of free fluid within the abdomen and pelvis.
3. No evidence of pneumatosis intestinalis or extraluminal air.
4. Mild nodularity of the hepatic contour, a nonspecific finding which may be seen in the setting of cirrhosis. Diffuse fatty infiltration of the liver.
? Partial SBO versus ileus, versus SBP (although minimal amount of free fluid on CT scan imaging)
Small bowel obstruction suspected secondary to inflammatory stricture with known Crohn's disease.
No clinical evidence of sepsis.
Off antibiotics
Diet has been advanced to low residue.
Systemic steroids transition to oral prednisone with slow taper.
Cirrhosis by history and imaging (CT scan with hepatic nodularity)
Untreated hepatitis C reported
Ultrasound with minimal ascites
Hyperammonemia on admission not correlated with hepatic encephalopathy
Hold lactulose acutely monitoring mental status closely.
Hold Lasix and Aldactone
Right foot/great toe ulcer with exposed bone.
MRI consistent with distal tuft osteomyelitis.
Plan is for partial hallux amputation on 04/08
N.p.o. postmidnight
Substance abuse with history of IVDA.
Urine drug screen positive for multiple substances
Repeated urine drug screen on 04/07 cleared and positive only for Suboxone
Continue Suboxone sublingual
Acute urinary retention.
Trial of voiding/bladder scan initiated on 04/05
DVT prophylaxis�subcu Lovenox
Full code
Anticipated Discharge: > 48 hours
Subjective/Interval History
-
Date of Service: April 07, 2024
Objective Data
-
Vital Signs:
Vital Signs
Temp Pulse Resp BP Pulse Ox
98.4 F 82 20 139/75 96
04/07/24 15:50 04/07/24 15:50 04/07/24 15:50 04/07/24 15:50 04/07/24 15:50
I&O
04/06/24 04/07/24 04/08/24
06:59 06:59 06:59
Intake Total 1680 / 1680 2400 / 2400
Output Total 1150 / 1150
Balance 530 / 530 2400 / 2400
Physical Exam
-
General: Well Developed and No Apparent Distress
HEENT: Normocephalic, Atraumatic and Moist Mucous Membranes
Respiratory: Clear to Auscultation
Cardiac: Regular Rhythm and S1/S2; Negative Murmur, Rub or Gallop
GI: Soft, Nontender, Nondistended and Normal Bowel Sounds; Negative Organomegaly
Rectal: Deferred by Provider
Musculoskeletal: No Clubbing, No Cyanosis and No Edema
Skin: Negative Rash
Neuro: Nonfocal/Grossly Intact
[2024-04-07 16:25] LABS: Fentanyl, Urine Negative (Negative)
[2024-04-07 16:58] LABS: Glucose - Point of Care 162 mg/dl (70-99)
[2024-04-07] MEDS: LOVENOX 40 MG SC (17:03)
[2024-04-07] MEDS: ZOFRAN 4 MG IV (20:29)
[2024-04-07 23:28] VITALS: BP 111/66
[2024-04-08] VITALS (8 sets, daily range): BP systolic 101–136; BP diastolic 60–87; BMI 25.8
[2024-04-08] MEDS: SUBUTEX 8 MG SL ×2 (07:44→20:04)
[2024-04-08] MEDS: DELTASONE 40 MG PO (07:44)
[2024-04-08] MEDS: THIAMINE INJECTION 100 MG IV (07:44)
[2024-04-08] MEDS: PROTONIX 40 MG PO (07:44)
[2024-04-08] MEDS: LIDOCAINE 4% PATCH TOPICAL (07:45)
[2024-04-08] MEDS: ZOFRAN 4 MG IV ×2 (10:17→20:07)
[2024-04-08 10:38] LABS: % Basophils 0.1 % (0-2); % Eosinophils 0.3 % (0-6); % Immature Granulocytes 1.7 % (0-0.5); % Lymphocytes 39.5 % (20.5-51.1); % Monocytes 12.4 % (1.7-9.3); Absolute Immature Granulocytes 0.2 10^3/uL (0-0.05); Absolute Lymphocytes 5.5 10^3/uL (1.2-3.4); Absolute Monocytes 1.7 10^3/uL (0.1-0.6); Absolute Neutrophils 6.4 10^3/uL (1.4-6.5); Hematocrit 25.8 % (37.0-47.0); Hemoglobin 8.3 g/dL (12.0-16.0); Mean Corp Hgb Conc. 32.2 g/dL (33.0-37.0); Mean Corpuscular Hgb 29.1 pg (27.0-31.0); Mean Corpuscular Volume 90.5 fL (81.0-99.0); Mean Platelet Volume 10.7 fL (7.4-10.4); Nucleated Red Blood Cells % 0.4 %; Platelet Count 311 10^3/uL (130-400); Red Blood Cell Count 2.85 10^6/uL (4.20-5.40); Red Cell Dist. Width 17.8 % (11.5-14.5); White Blood Cell Count 13.8 10^3/uL (4.8-10.8)
[2024-04-08 11:11] LABS: ALT (SGPT) 124 U/L (0-35); AST (SGOT) 151 U/L (14-36); Albumin 1.7 g/dl (3.5-5.0); Alkaline Phosphatase 200 U/L (38-126); Blood Urea Nitrogen 12 mg/dl (7-17); Calcium 7.6 mg/dl (8.4-10.2); Carbon Dioxide 28 mmol/L (22-30); Chloride 105 mmol/L (98-107); Estimated Creatinine Clearance 100 ml/min; Glucose 76 mg/dl (70-99); Potassium 4.5 mmol/L (3.5-5.1); Sodium 137 mmol/L (135-145); Total Bilirubin 0.2 mg/dl (0.2-1.3); Total Protein 4.2 g/dl (6.3-8.2); eGFR > 60.00
--- NOTE | 2024-04-08 12:13 | CM ---
Reviewed the chart notes and spoke with the patient at the bedside. Plan for R partial hallux amputation today. Additional referrals sent in Care Port. CM spoke with [facility] admissions liaison to inquire on possible placement of the of her
facilities. She will review. NALDO continues to be available to patient/family and is monitoring medical plan for needs at discharge.
Plan: Discharge to SNF/rehab once bed found and auth obtained.
--- NOTE | 2024-04-08 16:05 | W.PN.HOSP.TC ---
Today's Communication/Plan
-
Plan is for partial hallux amputation on 04/08
Continue oral steroid taper
Patient requested to be advanced to regular diet postsurgery.
Assessment / Plan
Assessment / Plan
Impression.
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 Recently diagnosed Crohn's disease presented emergency room with
persistent abdominal pain and fever..
Persistent abdominal pain.
Partial small bowel obstruction secondary to Crohn's disease inflammatory stricture
Sepsis ruled out
Cirrhosis by records and imaging
Hepatitis C untreated.
Chronic normocytic anemia
Hypoalbuminemia
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
Acute urinary retention
Right foot/great toe ulcer
R upper arm amp with small dermal ulcer.
R ischial stage 2 small pressure injury.
Sacral/buttocks linear discolored stage 1 and 2 pressure injuries.
Plan:
Fever, leukocytosis, lactic acid elevation.
Concern for clinical sepsis
Possible sources, intra-abdominal, bacteremia with left upper extremity PICC line in place on admission, urinary.
Currently stable respiratory status.
Chest x-ray with no infiltrates.
Blood cultures negative to date
With negative ID workup, antibiotics discontinued.
Right great toe ulcer with exposed bone.
Will ask podiatry to see
Presentation with persistent abdominal pain
Partial small bowel obstruction secondary to inflammation/Crohn's disease flareup
CT scan in ED with oral contrast only:
1. Significant dilation of the proximal and mid small bowel, measuring up to 6.5 cm in diameter, with relative decompression of the distal small bowel and colon. Findings are suggestive of at least partial small intestinal obstruction, although
well-defined transition point is not appreciated.
2. Small amount of free fluid within the abdomen and pelvis.
3. No evidence of pneumatosis intestinalis or extraluminal air.
4. Mild nodularity of the hepatic contour, a nonspecific finding which may be seen in the setting of cirrhosis. Diffuse fatty infiltration of the liver.
? Partial SBO versus ileus, versus SBP (although minimal amount of free fluid on CT scan imaging)
Small bowel obstruction suspected secondary to inflammatory stricture with known Crohn's disease.
No clinical evidence of sepsis.
Off antibiotics
Diet has been advanced to low residue.
Systemic steroids transition to oral prednisone with slow taper.
Cirrhosis by history and imaging (CT scan with hepatic nodularity)
Untreated hepatitis C reported
Ultrasound with minimal ascites
Hyperammonemia on admission not correlated with hepatic encephalopathy
Hold lactulose acutely monitoring mental status closely.
Hold Lasix and Aldactone
Right foot/great toe ulcer with exposed bone.
MRI consistent with distal tuft osteomyelitis.
Plan is for partial hallux amputation on 04/08
Substance abuse with history of IVDA.
Urine drug screen positive for multiple substances
Repeated urine drug screen on 04/07 cleared and positive only for Suboxone
Continue Suboxone sublingual
Acute urinary retention.
Trial of voiding/bladder scan initiated on 04/05
DVT prophylaxis�subcu Lovenox
Full code
Anticipated Discharge: > 48 hours
Subjective/Interval History
-
Date of Service: April 08, 2024
Objective Data
-
Labs:
Laboratory Results
04/08/24
10:16
WBC 13.8 H
Hgb 8.3 L
Hct 25.8 L
Plt Count 311 D
Sodium 137
Potassium 4.5
Chloride 105
Carbon Dioxide 28
BUN 12
Creatinine 0.3 L
Glucose 76
Calcium 7.6 L
Total Bilirubin 0.2
AST 151 H
ALT 124 H
Alkaline Phosphatase 200 H
Vital Signs:
Vital Signs
Temp Pulse Resp BP Pulse Ox
98.7 F 75 17 136/60 98
04/08/24 07:35 04/08/24 07:35 04/08/24 07:35 04/08/24 07:35 04/08/24 07:35
I&O
04/07/24 04/08/24 04/09/24
06:59 06:59 06:59
Intake Total 2400 / 2400 2160 / 2160
Balance 2400 / 2400 2160 / 2160
Physical Exam
-
General: Well Developed and No Apparent Distress
HEENT: Normocephalic, Atraumatic and Moist Mucous Membranes
Respiratory: Clear to Auscultation
Cardiac: Regular Rhythm and S1/S2; Negative Murmur, Rub or Gallop
GI: Soft, Nontender, Nondistended and Normal Bowel Sounds; Negative Organomegaly
Rectal: Deferred by Provider
Musculoskeletal: No Clubbing, No Cyanosis and No Edema
Skin: Negative Rash
Neuro: Nonfocal/Grossly Intact
--- NOTE | 2024-04-08 16:49 | W.PN.SURGUPD ---
Surgical Update
Surgical Update
partial is s/p R partial hallux amputation
-Surgical cure achieved
-Continue antibiotics for 48-72 hours post op (ancef)
-Heel WBAT to RLE is acceptable
-Dressings to remain clean, dry, intact
-No further plans
--- NOTE | 2024-04-08 17:30 | PTCARENOTE ---
Patient received back from PACU. Report received from Laura. TRAMMELL. GREG CDI. Patient ordering regular diet.
[2024-04-08] MEDS: LOVENOX 40 MG SC (17:45)
[2024-04-08] MEDS: FLUSH (NSS) 2 FLUSH IV ×2 (20:08→23:19)
[2024-04-08] MEDS: ANCEF 5 IV (23:18)
[2024-04-09 03:03] VITALS: BP 106/77
[2024-04-09 05:06] VITALS: BMI 25.5
--- NOTE | 2024-04-09 06:03 | PTCARENOTE ---
Patient's mother thought her daughter's cheeks looked puffy and was asking if we could check labs in the AM... Ammonia, CBC, Chemistry... and possibly an abdominal xray. Advised covering provider.
[2024-04-09] MEDS: FLUSH (NSS) 2 FLUSH IV ×2 (06:10→22:40)
[2024-04-09] MEDS: ANCEF 5 IV ×3 (06:10→22:38)
[2024-04-09 07:35] VITALS: BP 143/63
--- NOTE | 2024-04-09 08:06 | W.PN.HOSP.TC ---
Today's Communication/Plan
-
continue IV Cefazolin
PT/OT - recommending SNF
obtain labs and resume diuretics
continue Prednisone
Assessment / Plan
Assessment / Plan
Impression.
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 Recently diagnosed Crohn's disease presented emergency room with
persistent abdominal pain and fever..
Persistent abdominal pain.
Partial small bowel obstruction secondary to Crohn's disease inflammatory stricture
Sepsis ruled out
Cirrhosis by records and imaging
Hepatitis C untreated.
Chronic normocytic anemia
Hypoalbuminemia
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
Acute urinary retention
Right foot/great toe ulcer
R upper arm amp with small dermal ulcer.
R ischial stage 2 small pressure injury.
Sacral/buttocks linear discolored stage 1 and 2 pressure injuries.
Plan:
Fever, leukocytosis, lactic acid elevation. Initial concern for clinical sepsis.
Chest x-ray with no infiltrates.
Blood cultures negative to date
With negative ID workup, antibiotics initially discontinued. (Now on Ancef for right great toe osteo - see below)
Right great toe ulcer with exposed bone. MRI concerning for distal tuft osteomyelitis.
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
-Continue antibiotics for 48-72 hours post op (ancef) - DC on Thursday
-Heel WBAT to RLE is acceptable
-Dressings to remain clean, dry, intact
Presentation with persistent abdominal pain
Partial small bowel obstruction secondary to inflammation/Crohn's disease flareup
CT scan in ED with oral contrast only:
1. Significant dilation of the proximal and mid small bowel, measuring up to 6.5 cm in diameter, with relative decompression of the distal small bowel and colon. Findings are suggestive of at least partial small intestinal obstruction, although
well-defined transition point is not appreciated.
2. Small amount of free fluid within the abdomen and pelvis.
3. No evidence of pneumatosis intestinalis or extraluminal air.
4. Mild nodularity of the hepatic contour, a nonspecific finding which may be seen in the setting of cirrhosis. Diffuse fatty infiltration of the liver.
? Partial SBO versus ileus, versus SBP (although minimal amount of free fluid on CT scan imaging)
Small bowel obstruction suspected secondary to inflammatory stricture with known Crohn's disease.
-s/p NGT decompression now removed
-04/02 IV Solu-Medrol 20mg q 8 started; transitioned to prednisone 40mg PO QD with plans for slow taper (5mg weekly decrease until seen by GI as outpatient)
Diet has been advanced to low residue.
Cirrhosis by history and imaging (CT scan with hepatic nodularity)
Untreated hepatitis C reported
Ultrasound with minimal ascites
Hyperammonemia on admission not correlated with hepatic encephalopathy
Hold lactulose acutely monitoring mental status closely.
obtain labs today and resume diuretics
Substance abuse with history of IVDA.
Urine drug screen positive for multiple substances
Repeated urine drug screen on 04/07 cleared and positive only for Suboxone
Continue Suboxone sublingual
Acute urinary retention.
Trial of voiding/bladder scan initiated on 04/05
DVT prophylaxis�subcu Lovenox
Full code
51 minutes spent on patient care
Anticipated Discharge: 24 - 48 hours
Subjective/Interval History
-
Date of Service: April 09, 2024
no new complaints
tolerating diet
abdomen feels more distended
Objective Data
-
Vital Signs:
Vital Signs
Temp Pulse Resp BP Pulse Ox
98.4 F 75 16 143/63 100
04/09/24 07:35 04/09/24 07:35 04/09/24 07:35 04/09/24 07:35 04/09/24 07:35
I&O
11/07/0104/09/24 04/10/24
06:59 06:59 05:59
Intake Total 0 / 2160 960 / 960
Balance 0 / 216 960 / 960
Review of Systems
-
History Source: Patient
All other systems: Reviewed and negative
Physical Exam
-
General: Well Developed and No Apparent Distress
HEENT: Normocephalic, Atraumatic and Moist Mucous Membranes
Respiratory: Clear to Auscultation
Cardiac: Regular Rhythm and S1/S2; Negative Murmur, Rub or Gallop
GI: Other (mildly distended, non-tender)
Rectal: Deferred by Provider
Musculoskeletal: No Clubbing, No Cyanosis and Other (b/l LE edema )
Skin: Negative Rash
Neuro: Nonfocal/Grossly Intact
Psych: Calm
Data Reviewed
-
Diagnostic Radiology: Report Reviewed by me
Labs: Labs Reviewed by me
[2024-04-09] MEDS: LIDOCAINE 4% PATCH TOPICAL (08:37)
[2024-04-09] MEDS: PROTONIX 40 MG PO (08:37)
[2024-04-09] MEDS: DELTASONE 40 MG PO (08:38)
[2024-04-09] MEDS: SUBUTEX 8 MG SL ×2 (08:38→19:36)
[2024-04-09] MEDS: THIAMINE INJECTION 100 MG IV (08:39)
[2024-04-09 09:37] LABS: Hemoglobin 8.8 g/dL (12.0-16.0); Mean Corp Hgb Conc. 32.6 g/dL (33.0-37.0); Mean Corpuscular Hgb 29.6 pg (27.0-31.0); Mean Corpuscular Volume 90.9 fL (81.0-99.0); Mean Platelet Volume 10.7 fL (7.4-10.4); Platelet Count 332 10^3/uL (130-400); Red Blood Cell Count 2.97 10^6/uL (4.20-5.40); Red Cell Dist. Width 18.2 % (11.5-14.5); White Blood Cell Count 11.9 10^3/uL (4.8-10.8)
[2024-04-09 09:45] LABS: ALT (SGPT) 98 U/L (0-35); AST (SGOT) 84 U/L (14-36); Albumin 1.8 g/dl (3.5-5.0); Alkaline Phosphatase 203 U/L (38-126); Blood Urea Nitrogen 14 mg/dl (7-17); Calcium 7.8 mg/dl (8.4-10.2); Carbon Dioxide 27 mmol/L (22-30); Chloride 105 mmol/L (98-107); Estimated Creatinine Clearance 100 ml/min; Glucose 97 mg/dl (70-99); Magnesium 1.6 mg/dl (1.6-2.3); Potassium 3.9 mmol/L (3.5-5.1); Sodium 137 mmol/L (135-145); Total Bilirubin 0.1 mg/dl (0.2-1.3); Total Protein 4.4 g/dl (6.3-8.2); eGFR > 60.00
[2024-04-09 10:02] LABS: % Basophils 0.2 % (0-2); % Eosinophils 0.3 % (0-6); % Immature Granulocytes 0.8 % (0-0.5); % Neutrophils 33.7 % (42.2-75.2); Absolute Immature Granulocytes 0.1 10^3/uL (0-0.05); Absolute Lymphocytes 6.3 10^3/uL (1.2-3.4); Absolute Monocytes 1.4 10^3/uL (0.1-0.6); Nucleated Red Blood Cells % 0.2 %
[2024-04-09] MEDS: LASIX 20 MG PO ×2 (11:02→15:35)
[2024-04-09] MEDS: ALDACTONE 50 MG PO (11:02)
[2024-04-09 15:25] VITALS: BP 117/65
--- NOTE | 2024-04-09 16:38 | W.PN.UPDATE ---
Update Note
Progress Note Update
I was called to see the patient complaining of abdominal pain. Concern was abdominal tenderness/rigidity. Patient complained about gurgling sound in her abdomen.
Patient is hemodynamically stable. Patient was sitting comfortably in bed browsing the Internet on her iPad.
Vital signs showing blood pressure 117/65. Heart rate 79, temperature 98.5 with oxygen saturation 98% on room air
Patient not in distress. Abdominal examination: no abdominal tenderness or distention. Abdomen is soft. I ordered abdominal x-ray but patient did not want to do it. Will keep monitoring for now. Will follow-up if needed.
d/w nurse
[2024-04-09] MEDS: LOVENOX 40 MG SC (17:07)
--- NOTE | 2024-04-09 18:39 | PTCARENOTE ---
pt complaining of new throbbing, gurgling pain 10/10 on her RLQ, distended, cross coverage notified. when MD came to bedside pt was more relaxed, watching her ipad, no complains anymore.
[2024-04-09 23:26] VITALS: BP 92/54
[2024-04-10 04:39] LABS: Hematocrit 26.5 % (37.0-47.0); Hemoglobin 8.7 g/dL (12.0-16.0); Mean Corp Hgb Conc. 32.8 g/dL (33.0-37.0); Mean Corpuscular Hgb 29.3 pg (27.0-31.0); Mean Corpuscular Volume 89.2 fL (81.0-99.0); Mean Platelet Volume 10.5 fL (7.4-10.4); Platelet Count 322 10^3/uL (130-400); Red Blood Cell Count 2.97 10^6/uL (4.20-5.40); Red Cell Dist. Width 18.3 % (11.5-14.5); White Blood Cell Count 11.3 10^3/uL (4.8-10.8)
[2024-04-10 05:13] LABS: ALT (SGPT) 85 U/L (0-35); AST (SGOT) 50 U/L (14-36); Albumin 1.8 g/dl (3.5-5.0); Alkaline Phosphatase 214 U/L (38-126); Blood Urea Nitrogen 12 mg/dl (7-17); Calcium 8.1 mg/dl (8.4-10.2); Carbon Dioxide 30 mmol/L (22-30); Chloride 101 mmol/L (98-107); Estimated Creatinine Clearance 100 ml/min; Glucose 83 mg/dl (70-99); Potassium 4.2 mmol/L (3.5-5.1); Sodium 135 mmol/L (135-145); Total Bilirubin 0.1 mg/dl (0.2-1.3); Total Protein 4.4 g/dl (6.3-8.2); eGFR > 60.00
[2024-04-10 05:59] VITALS: BMI 24.0
[2024-04-10] MEDS: ANCEF 5 IV ×3 (06:04→22:27)
[2024-04-10] MEDS: FLUSH (NSS) 2 FLUSH IV (06:04)
[2024-04-10 07:26] VITALS: BP 131/75
[2024-04-10] MEDS: PROTONIX 40 MG PO (08:26)
[2024-04-10] MEDS: DELTASONE 40 MG PO (08:26)
[2024-04-10] MEDS: SUBUTEX 8 MG SL ×2 (08:26→20:01)
[2024-04-10] MEDS: LIDOCAINE 4% PATCH TOPICAL (08:27)
[2024-04-10] MEDS: LASIX 20 MG PO (08:27)
[2024-04-10] MEDS: THIAMINE INJECTION 100 MG IV (08:27)
[2024-04-10] MEDS: ALDACTONE 50 MG PO (08:27)
--- NOTE | 2024-04-10 08:32 | W.PN.HOSP.TC ---
Addendum entered and electronically signed by Sandrine Hidalgo MD 04/10/24 09:06:
resume Lactulose
Original Note:
Today's Communication/Plan
-
IV Cefazolin x 24 more hours
trend CMP
diuretics resumed
eventual DC to SNF in 1-2 days
Assessment / Plan
Assessment / Plan
Impression.
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 Recently diagnosed Crohn's disease presented emergency room with
persistent abdominal pain and fever..
Persistent abdominal pain.
Partial small bowel obstruction secondary to Crohn's disease inflammatory stricture
Sepsis ruled out
Cirrhosis by records and imaging
Hepatitis C untreated.
Chronic normocytic anemia
Hypoalbuminemia
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
Acute urinary retention
Right foot/great toe ulcer
R upper arm amp with small dermal ulcer.
R ischial stage 2 small pressure injury.
Sacral/buttocks linear discolored stage 1 and 2 pressure injuries.
Plan:
Fever, leukocytosis, lactic acid elevation. Initial concern for clinical sepsis.
Chest x-ray with no infiltrates.
Blood cultures negative to date
With negative ID workup, antibiotics initially discontinued. (Now on Ancef for right great toe osteo - see below)
Right great toe ulcer with exposed bone. MRI concerning for distal tuft osteomyelitis.
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
-Continue antibiotics for 48-72 hours post op (ancef) - DC on Thursday
-Heel WBAT to RLE is acceptable
-Dressings to remain clean, dry, intact
PT recommending DC to SNF
Presentation with persistent abdominal pain
Partial small bowel obstruction secondary to inflammation/Crohn's disease flareup
CT scan in ED with oral contrast only:
1. Significant dilation of the proximal and mid small bowel, measuring up to 6.5 cm in diameter, with relative decompression of the distal small bowel and colon. Findings are suggestive of at least partial small intestinal obstruction, although
well-defined transition point is not appreciated.
2. Small amount of free fluid within the abdomen and pelvis.
3. No evidence of pneumatosis intestinalis or extraluminal air.
4. Mild nodularity of the hepatic contour, a nonspecific finding which may be seen in the setting of cirrhosis. Diffuse fatty infiltration of the liver.
? Partial SBO versus ileus, versus SBP (although minimal amount of free fluid on CT scan imaging)
Small bowel obstruction suspected secondary to inflammatory stricture with known Crohn's disease.
-s/p NGT decompression now removed
-04/02 IV Solu-Medrol 20mg q 8 started; transitioned to prednisone 40mg PO QD on 04/06/24with plans for slow taper (5mg weekly decrease until seen by GI as outpatient)
Diet has been advanced to low residue.
Cirrhosis by history and imaging (CT scan with hepatic nodularity)
Untreated hepatitis C reported
Ultrasound with minimal ascites
Hyperammonemia on admission not correlated with hepatic encephalopathy
Hold lactulose acutely monitoring mental status closely.
04/09 - diuretic resumed
Transaminitis - liver enzymes increased on 04/08 - now downtrending again
Substance abuse with history of IVDA.
Urine drug screen positive for multiple substances
Repeated urine drug screen on 04/07 cleared and positive only for Suboxone
Continue Suboxone sublingual
Acute urinary retention.
Trial of voiding/bladder scan initiated on 04/05
DVT prophylaxis�subcu Lovenox
Full code
51 minutes spent on patient care
Anticipated Discharge: 24 - 48 hours
Subjective/Interval History
-
Date of Service: April 10, 2024
no abdominal pain
no new complaints
Objective Data
-
Labs:
Laboratory Results
04/10/24
04:32
WBC 11.3 H
Hgb 8.7 L
Hct 26.5 L
Plt Count 322
Sodium 135
Potassium 4.2
Chloride 101
Carbon Dioxide 30
BUN 12
Creatinine 0.4 L
Glucose 83
Calcium 8.1 L
Total Bilirubin 0.1 L
AST 50 H
ALT 85 H
Alkaline Phosphatase 214 H
Vital Signs:
Vital Signs
Temp Pulse Resp BP Pulse Ox
97.4 F 90 16 131/75 100
04/10/24 07:26 04/10/24 07:26 04/10/24 07:26 04/10/24 07:26 04/10/24 07:26
I&O
04/09/24 04/10/24 04/11/24
07:59 06:59 06:59
Intake Total
Balance
Review of Systems
-
History Source: Patient
All other systems: Reviewed and negative
Physical Exam
-
General: Well Developed and No Apparent Distress
HEENT: Normocephalic, Atraumatic and Moist Mucous Membranes
Respiratory: Clear to Auscultation
Cardiac: Regular Rhythm and S1/S2; Negative Murmur, Rub or Gallop
GI: Other (mildly distended, non-tender)
Rectal: Deferred by Provider
Musculoskeletal: No Clubbing, No Cyanosis and Other (b/l LE edema; RUE amputation with ulcer covered with bandage)
Skin: Negative Rash
Neuro: Nonfocal/Grossly Intact
Psych: Calm
Data Reviewed
-
Diagnostic Radiology: Report Reviewed by me
Labs: Labs Reviewed by me
[2024-04-10] MEDS: DUPHALAC/CHRONULAC 20 GRAMS PO (11:01)
--- NOTE | 2024-04-10 15:27 | W.PN.UPDATE ---
Update Note
Progress Note Update
patient with pain post drinking lactulose
she was feeling well this morning; had BM 2 days ago. Per RN, she ate a lot yesterday and ate breakfast.
On exam she appears in pain, bowel sounds present.
Discussed with GI, more likely response to lactulose. no need for IV steroids now, GI team to evaluate tomorrow.
NPO, gentle IVF
discussed with GI, will give milk of molasses enema to try to relieve some pressure
IV Dilaudid x 1; may need further doses later if enema not successful
[2024-04-10 15:29] VITALS: BP 117/75
[2024-04-10] MEDS: DILAUDID 1 MG IV (15:44)
[2024-04-10] MEDS: D5/0.9% SODIUM CHLORIDE 1000 IV (15:47)
[2024-04-10] MEDS: MYLICON 80 MG PO (17:55)
[2024-04-10] MEDS: LOVENOX 40 MG SC (17:55)
--- NOTE | 2024-04-10 18:02 | PTCARENOTE ---
pt complaining of 10/10 stomach/abdominal pain, MD made aware, xray obstruction series obtained. 1 time dose of IV Dlauidid given MOM enema given and effective. MD made aware.
[2024-04-10] MEDS: ANESTHETIC LOZENGE 1 LOZENGE PO (20:12)
[2024-04-10 23:13] VITALS: BP 114/60
[2024-04-11 05:43] VITALS: BMI 23.3
--- NOTE | 2024-04-11 05:44 | W.PN.GI.CBS2 ---
Today's Communication / Plan
-
No concern for obstruction despite X-ray findings, gaseous distension secondary to restarting lactulose and likely recovering prior dilatation without obstruction. May take miralax to help move bowels and having ongoing bowel function. Would
continue oral Prednisone without escalation back to IV steroids given her symptoms, exam findings and CRP which is reassuring. See rest of plan as outlined below.
Assessment / Plan
-
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
the ED from rehab facility for abdominal pain and distention. Patient is a limited historian so the majority of patient history is obtained from prior records. Patient was previously living in [place], with recent admission at [facility] in November
2023 for similar abdominal pain and states she had both endoscopy and colonoscopy and was diagnosed with Crohn's disease. She does have a prior history of small bowel obstruction, but denies any prior abdominal surgeries. Reportedly, SBO had
previously improved with NGT and resolved without surgical intervention. Patient denies any diarrhea. She never followed up with GI. She has never been on any treatment for Crohn's, other than prednisone. She also has known Hepatitis C, never
treated.
Labs in ER reviewed, which showed leukocytosis with WBC count of 17. Lactic acid 2.4. Hemoglobin 10.1, normal MCV, platelets 210. LFTs: T. bili 0.3, AST 70, ALT 42, alk phos 251, and albumin 1.8. PT 17.1, INR 1.42. C-reactive protein elevated,
33.7. CT of the abdomen and pelvis shows distention of the stomach and duodenum, dilated loops of small bowel and decompressed distal small bowel suggestive of distal small bowel obstruction. She was afebrile in the ER, but temperature did increase
to 100.9 today, 04/01/2024. Blood cultures pending. She has been started on IV antibiotics, Zosyn. Infectious Disease and Surgery have also been consulted.
#Abdominal Pain, secondary to SBO/partial bowel obstruction/newly diagnosed Crohn's
( Abdominal pain, nausea and vomiting, requiring NG tube decompression -now removed )
Reported history of inflammatory bowel disease, questionable Crohn's diagnosed in November 2023 at [facility] for similar presentation.
Still no records from [facility]- she had EGD/colonoscoppy there. She reports she has appointment with GI at [place] 05/19- will have to move it up to sooner. She is looking to go to a rehab place close to [place].
04/02/24 started Solu-Medrol 20 mg every 8 hours for possible small bowel Crohn's
(Blood cultures negative so far. Currently on antibiotics per ID)
##History of hepatitis C, untreated. No evidence of decompensation at this time.
Hepatitis B surface antigen negative but antibody positive suggesting immunity. Hepatitis A antibody total positive as well. Hepatitis C antibody is reactive, await HCV RNA.
As per pt, she was diagnosed with Hep C 14 yrs ago, started treatment but was not able to finish. Will need OP hepatology eval.
Called back by primary team given concern for worsening gaseous distension and abdominal discomfort on 04/10 after her lactulose was restarted. Repeat X-Ray Obstruction series 04/10/2024 with multiple dilated loops of bowel, slightly increased in size
from prior concerning for persistent obstruction. Repeat CRP reassuring with CRP 89 -> 74 -> 47 28.60 -> 28.10. Suspect previous symptoms in setting of receiving lactulose given acuity of symptoms and complete resolution of symptoms this AM afer one
MoM. Clinically, there is no concern for an obstructive process as patient is passing flatus and having bowel movements without any nausea, vomiting or distension on exam.
Recommendations:
- Tolerating CLD and having bowel function
- May ADAT slowly to low-residue, low-fiber diet
- No concern for recurrent symptoms in setting of CD as she has remained on steroids with reassuring CRP and would continue oral steroids at this time
- May continue Prednisone 40 mg once daily and then taper off on discharge (5 mg weekly until seen by GI as outpatient)
- Defer repeat cross-sectional imaging with CT as have no concern for persistent obstruction and likely lag from clinical picture
- Would STOP lactulose and would not resume at discharge. May use miralax but patient has no prior history of HE
- Patient needs to follow-up with her GI at [place] to discuss about maintenance therapy for Crohn's disease/management of hep C (advised her to call the GI office on discharge )
- Rest of care per primary team
Discussed with internal medicine team this afternoon.
GI team will continue to follow.
Subjective
Subjective
Date of Service: April 11, 2024
- Called back by primary team given concern for worsening gaseous distension and abdominal discomfort
- Recent CR Obstruction series 04/10/2024 with multiple dilated loops of bowel, slightly increased in size from prior concerning for persistent obstruction
- Previously on IV steroids earlier on admission, restarted on lactulose yesterday 04/10/2024
- Prior CRP 04/02 89 -> 28 on 04/05
Patient notes complete resolution of abdominal pain/discomfort early this AM. Had one BM after MoM enema. Developed worsening gas once her lactulose was resumed yesterday afternoon. Otherwise, no nausea/vomiting and tolerating CLD without any
difficulty. Had another BM this AM and having bowel function.
Objective
Data Reviewed
Laboratory Data:
Laboratory Results
PT 17.1 Sec (11.4-14.6) H 04/01/24 07:38
INR 1.42 04/01/24 07:38
Phosphorus 2.6 mg/dl (2.5-4.5) 04/05/24 04:49
Magnesium 1.6 mg/dl (1.6-2.3) 04/09/24 08:56
Total Bilirubin 0.1 mg/dl (0.2-1.3) L 04/10/24 04:32
AST 50 U/L (14-36) H 04/10/24 04:32
ALT 85 U/L (0-35) H 04/10/24 04:32
Alkaline Phosphatase 214 U/L (38-126) H 04/10/24 04:32
Lipase 18 U/L (23-300) L 03/31/24 22:16
Vital Signs and I&O:
Vital Signs
Temp Pulse Resp BP Pulse Ox
98.4 F 77 18 114/60 98
04/10/24 23:13 04/10/24 23:13 04/10/24 23:13 04/10/24 23:13 04/10/24 23:13
I&O
04/09/24 04/10/24 04/11/24
07:59 06:59 06:59
Intake Total 720 / 720
Balance 720 / 720
Physical Exam
Physical Exam
HEENT: Anicteric and Moist mucous membranes
Cardiology: Normal Sinus Rhythm
Pulmonary: Other (Normal WOB on room air)
GI: Soft, Non Distended and Non Tender
Extremities: No Edema
Neuro: Non Focal
[2024-04-11 05:51] LABS: % Basophils 0.1 % (0-2); % Immature Granulocytes 0.4 % (0-0.5); % Lymphocytes 23.9 % (20.5-51.1); % Monocytes 4.3 % (1.7-9.3); % Neutrophils 71.3 % (42.2-75.2); Absolute Lymphocytes 1.7 10^3/uL (1.2-3.4); Absolute Monocytes 0.3 10^3/uL (0.1-0.6); Absolute Neutrophils 4.9 10^3/uL (1.4-6.5); Hematocrit 26.7 % (37.0-47.0); Hemoglobin 8.8 g/dL (12.0-16.0); Mean Corpuscular Hgb 29.4 pg (27.0-31.0); Mean Corpuscular Volume 89.3 fL (81.0-99.0); Mean Platelet Volume 10.2 fL (7.4-10.4); Nucleated Red Blood Cells % 0 %; Platelet Count 331 10^3/uL (130-400); Red Blood Cell Count 2.99 10^6/uL (4.20-5.40); Red Cell Dist. Width 18.6 % (11.5-14.5); White Blood Cell Count 6.9 10^3/uL (4.8-10.8)
[2024-04-11 06:14] LABS: ALT (SGPT) 70 U/L (0-35); AST (SGOT) 45 U/L (14-36); Albumin 1.9 g/dl (3.5-5.0); Alkaline Phosphatase 210 U/L (38-126); Blood Urea Nitrogen 13 mg/dl (7-17); Calcium 7.9 mg/dl (8.4-10.2); Carbon Dioxide 25 mmol/L (22-30); Chloride 105 mmol/L (98-107); Estimated Creatinine Clearance 100 ml/min; Glucose 98 mg/dl (70-99); Magnesium 1.7 mg/dl (1.6-2.3); Potassium 4.6 mmol/L (3.5-5.1); Sodium 135 mmol/L (135-145); Total Bilirubin 0.2 mg/dl (0.2-1.3); Total Protein 4.5 g/dl (6.3-8.2); eGFR > 60.00
--- NOTE | 2024-04-11 08:00 | W.PN.SURGUPD ---
Surgical Update
Surgical Update
partial is s/p R partial hallux amputation 04/[address] Fine
-Patient seen and evaluated at bedside. Wound inspected and dressings re-applied
-Hallux amputation site is well coapted, healing, and has no signs of infection
-No further antibiotics required
-Moving forward, dressings can be changed twice weekly by wound care with DSD, Manuel, and lightly wrapped MARYANA bandage
-Heel WBAT to RLE
-No further plans
-Patient to follow up at [facility] for suture removal 2 weeks after discharge from hospital
[2024-04-11 08:10] VITALS: BP 128/77
[2024-04-11] MEDS: DELTASONE 40 MG PO (09:04)
[2024-04-11] MEDS: ANCEF 5 IV (09:04)
[2024-04-11] MEDS: SUBUTEX 8 MG SL ×2 (09:11→20:01)
[2024-04-11] MEDS: PROTONIX 40 MG PO (09:11)
[2024-04-11] MEDS: THIAMINE INJECTION 100 MG IV (09:11)
[2024-04-11] MEDS: LIDOCAINE 4% PATCH TOPICAL (09:16)
--- NOTE | 2024-04-11 14:18 | WOUNDNOTE ---
WOC RN NOTE: Reviewed chart and confirmed orders with Dr. Casillas. Care plan updated. Will peripherally.
--- NOTE | 2024-04-11 14:27 | CM ---
Reviewed the chart notes and spoke with the patient at the bedside. Provided the list of facilities and their responses to placement. Patient will review. CM continues to be available to patient/family and is monitoring medical plan for needs at
discharge.
Plan: Discharge to SNF once medically stable and bed found. Precert will be required.
--- NOTE | 2024-04-11 15:27 | W.PN.HOSP.TC ---
Today's Communication/Plan
-
Advance to low residue diet.
Hold lactulose.
Hold diuretics
Assessment / Plan
Assessment / Plan
Impression.
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 Recently diagnosed Crohn's disease presented emergency room with
persistent abdominal pain and fever..
Persistent abdominal pain.
Partial small bowel obstruction secondary to Crohn's disease inflammatory stricture
Sepsis ruled out
Cirrhosis by records and imaging
Hepatitis C untreated.
Chronic normocytic anemia
Hypoalbuminemia
Multisubstance abuse opiate use disorder with history of IVDA on Suboxone [employer]OR.
Acute urinary retention
Right foot/great toe ulcer
R upper arm amp with small dermal ulcer.
R ischial stage 2 small pressure injury.
Sacral/buttocks linear discolored stage 1 and 2 pressure injuries.
Plan:
Fever, leukocytosis, lactic acid elevation. Initial concern for clinical sepsis.
Chest x-ray with no infiltrates.
Blood cultures negative to date
With negative ID workup, antibiotics initially discontinued. (Now on Ancef for right great toe osteo - see below)
Right great toe ulcer with exposed bone. MRI concerning for distal tuft osteomyelitis.
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
-Continue antibiotics for 48-72 hours post op (ancef) - DC on Thursday
-Heel WBAT to RLE is acceptable
-Dressings to remain clean, dry, intact
PT recommending DC to SNF
Presentation with persistent abdominal pain
Partial small bowel obstruction secondary to inflammation/Crohn's disease flareup
CT scan in ED with oral contrast only:
1. Significant dilation of the proximal and mid small bowel, measuring up to 6.5 cm in diameter, with relative decompression of the distal small bowel and colon. Findings are suggestive of at least partial small intestinal obstruction, although
well-defined transition point is not appreciated.
2. Small amount of free fluid within the abdomen and pelvis.
3. No evidence of pneumatosis intestinalis or extraluminal air.
4. Mild nodularity of the hepatic contour, a nonspecific finding which may be seen in the setting of cirrhosis. Diffuse fatty infiltration of the liver.
? Partial SBO versus ileus, versus SBP (although minimal amount of free fluid on CT scan imaging)
Small bowel obstruction suspected secondary to inflammatory stricture with known Crohn's disease.
-s/p NGT decompression now removed
-04/02 IV Solu-Medrol 20mg q 8 started; transitioned to prednisone 40mg PO QD on 04/06/24with plans for slow taper (5mg weekly decrease until seen by GI as outpatient)
Diet has been advanced to low residue.
Cirrhosis by history and imaging (CT scan with hepatic nodularity)
Untreated hepatitis C reported
Ultrasound with minimal ascites
Hyperammonemia on admission not correlated with hepatic encephalopathy
Stop lactulose (no clear evidence of hepatic encephalopathy also reacting with severe abdominal cramps). Assure daily BMs with MiraLAX
Hold Lasix and Aldactone. No clear evidence of cirrhosis with decompensation including ascites on imaging.
Substance abuse with history of IVDA.
Urine drug screen positive for multiple substances
Repeated urine drug screen on 04/07 cleared and positive only for Suboxone
Continue Suboxone sublingual
Acute urinary retention.
Trial of voiding/bladder scan initiated on 04/05
DVT prophylaxis�subcu Lovenox
Full code
51 minutes spent on patient care
Anticipated Discharge: 24 - 48 hours
Subjective/Interval History
-
Date of Service: April 11, 2024
Objective Data
-
Labs:
Laboratory Results
04/11/24
05:17
WBC 6.9
Hgb 8.8 L
Hct 26.7 L
Plt Count 331
Sodium 135
Potassium 4.6
Chloride 105
Carbon Dioxide 25
BUN 13
Creatinine 0.4 L
Glucose 98
Calcium 7.9 L
Total Bilirubin 0.2
AST 45 H
ALT 70 H
Alkaline Phosphatase 210 H
Vital Signs:
Vital Signs
Temp Pulse Resp BP Pulse Ox
97.6 F 90 16 128/77 98
04/11/24 08:10 04/11/24 08:10 04/11/24 08:10 04/11/24 08:10 04/11/24 10:11
I&O
04/10/24 04/11/24 04/12/24
06:59 06:59 06:59
Intake Total 1080 / 1080
Balance 1080 / 1080
Physical Exam
-
General: Well Developed and No Apparent Distress
HEENT: Normocephalic, Atraumatic and Moist Mucous Membranes
Respiratory: Clear to Auscultation
Cardiac: Regular Rhythm and S1/S2; Negative Murmur, Rub or Gallop
GI: Other (mildly distended, non-tender)
Rectal: Deferred by Provider
Musculoskeletal: No Clubbing, No Cyanosis and Other (b/l LE edema; RUE amputation with ulcer covered with bandage)
Skin: Negative Rash
Neuro: Nonfocal/Grossly Intact
Psych: Calm
[2024-04-11 15:55] VITALS: BP 128/73
[2024-04-11] MEDS: LOVENOX 40 MG SC (17:18)
[2024-04-11] MEDS: ANESTHETIC LOZENGE 1 LOZENGE PO ×2 (17:42→20:04)
[2024-04-11 22:59] VITALS: BP 105/74
[2024-04-12] MEDS: ANESTHETIC LOZENGE 1 LOZENGE PO (05:10)
--- NOTE | 2024-04-12 05:21 | W.PN.GI.CBS2 ---
Today's Communication / Plan
-
Tolerating low-fiber, low-residue diet and would continue this after discharge. Stop lactulose, start Miralax BiD as likely caused worsening distension. No other concern for worsening Crohn's and continue oral steroids with prolonged taper as below.
GI team will sign-off, please call back with any questions or concerns.
Assessment / Plan
-
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
the ED from rehab facility for abdominal pain and distention. Patient is a limited historian so the majority of patient history is obtained from prior records. Patient was previously living in [place], with recent admission at [facility] in November
2023 for similar abdominal pain and states she had both endoscopy and colonoscopy and was diagnosed with Crohn's disease. She does have a prior history of small bowel obstruction, but denies any prior abdominal surgeries. Reportedly, SBO had
previously improved with NGT and resolved without surgical intervention. Patient denies any diarrhea. She never followed up with GI. She has never been on any treatment for Crohn's, other than prednisone. She also has known Hepatitis C, never
treated.
Labs in ER reviewed, which showed leukocytosis with WBC count of 17. Lactic acid 2.4. Hemoglobin 10.1, normal MCV, platelets 210. LFTs: T. bili 0.3, AST 70, ALT 42, alk phos 251, and albumin 1.8. PT 17.1, INR 1.42. C-reactive protein elevated,
33.7. CT of the abdomen and pelvis shows distention of the stomach and duodenum, dilated loops of small bowel and decompressed distal small bowel suggestive of distal small bowel obstruction. She was afebrile in the ER, but temperature did increase
to 100.9 today, 04/01/2024. Blood cultures pending. She has been started on IV antibiotics, Zosyn. Infectious Disease and Surgery have also been consulted.
#Abdominal Pain, secondary to SBO/partial bowel obstruction/newly diagnosed Crohn's
( Abdominal pain, nausea and vomiting, requiring NG tube decompression -now removed )
Reported history of inflammatory bowel disease, questionable Crohn's diagnosed in November 2023 at [facility] for similar presentation.
Still no records from [facility]- she had EGD/colonoscoppy there. She reports she has appointment with GI at [place] 05/19- will have to move it up to sooner. She is looking to go to a rehab place close to [place].
04/02/24 started Solu-Medrol 20 mg every 8 hours for possible small bowel Crohn's
(Blood cultures negative so far. Currently on antibiotics per ID)
##History of hepatitis C, untreated. No evidence of decompensation at this time.
Hepatitis B surface antigen negative but antibody positive suggesting immunity. Hepatitis A antibody total positive as well. Hepatitis C antibody is reactive, await HCV RNA.
As per pt, she was diagnosed with Hep C 14 yrs ago, started treatment but was not able to finish. Will need OP hepatology eval.
Called back by primary team given concern for worsening gaseous distension and abdominal discomfort on 04/10 after her lactulose was restarted. Repeat X-Ray Obstruction series 04/10/2024 with multiple dilated loops of bowel, slightly increased in size
from prior concerning for persistent obstruction. Repeat CRP reassuring with CRP 89 -> 74 -> 47 28.60 -> 28.10. Suspect previous symptoms in setting of receiving lactulose given acuity of symptoms and complete resolution of symptoms this AM afer one
MoM. Clinically, there is no concern for an obstructive process as patient is passing flatus and having bowel movements without any nausea, vomiting or distension on exam.
Recommendations:
- Continue low-fiber, low-residue diet today
- No concern for recurrent symptoms in setting of CD as she has remained on steroids with reassuring CRP and would continue oral steroids at this time
- Continue Prednisone 40 mg once daily and then taper off on discharge (prolonged taper by 5 mg weekly until seen by GI as outpatient)
- Defer repeat cross-sectional imaging with CT as have no concern for persistent obstruction and likely lag from clinical picture. She continues to have bowel function and tolerating diet without difficulty
- Would STOP lactulose and would not resume at discharge
- May use miralax but patient has no prior history of HE, would start Miralax BiD
- Patient needs to follow-up with her GI at [place] to discuss about maintenance therapy for Crohn's disease/management of hep C (advised her to call the GI office on discharge). Discussed this with her again this AM about importance of close
outpatient f/u
- Rest of care per primary team
Discussed with internal medicine team this AM.
GI team will sign-off. Please call back with any questions or concerns.
Subjective
Subjective
Date of Service: April 12, 2024
- Restarted on diet yesterday, advanced to low-residue diet
- Remains on p.o prednisone 40 mg q daily
- Otherwise, no acute events overnight
Resting comfortably in bed this AM. Tolerated beef broth soup and meatloaf yesterday evening without any abdominal distension/pain, discomfort, bloating or nausea/vomiting. Had one BM yesterday and continues to pass flatus. No other fevers, chills
or other constitutional symptoms. Feeling completely better and inquiring when she can leave hospital. Discussed importance of close f/u with her primary GI physician after discharge.
Objective
Data Reviewed
Laboratory Data:
Laboratory Results
PT 17.1 Sec (11.4-14.6) H 04/01/24 07:38
INR 1.42 04/01/24 07:38
Phosphorus 2.6 mg/dl (2.5-4.5) 04/05/24 04:49
Magnesium 1.7 mg/dl (1.6-2.3) 04/11/24 05:17
Total Bilirubin 0.2 mg/dl (0.2-1.3) 04/11/24 05:17
AST 45 U/L (14-36) H 04/11/24 05:17
ALT 70 U/L (0-35) H 04/11/24 05:17
Alkaline Phosphatase 210 U/L (38-126) H 04/11/24 05:17
Lipase 18 U/L (23-300) L 03/31/24 22:16
Vital Signs and I&O:
Vital Signs
Temp Pulse Resp BP Pulse Ox
98.1 F 86 16 105/74 100
04/11/24 22:59 04/11/24 22:59 04/11/24 22:59 04/11/24 22:59 04/12/24 01:45
I&O
04/10/24 04/11/24 04/12/24
06:59 06:59 06:59
Intake Total 1080 / 1080 480 / 480
Balance 1080 / 1080 480 / 480
Physical Exam
Physical Exam
HEENT: Anicteric and Moist mucous membranes
Cardiology: Normal Sinus Rhythm
Pulmonary: Clear
GI: Soft, Non Distended and Non Tender
Extremities: No Edema
Neuro: Non Focal
[2024-04-12 06:00] VITALS: BMI 23.2
[2024-04-12 06:20] LABS: Hematocrit 25.5 % (37.0-47.0); Hemoglobin 8.4 g/dL (12.0-16.0); Mean Corp Hgb Conc. 32.9 g/dL (33.0-37.0); Mean Corpuscular Hgb 29.1 pg (27.0-31.0); Mean Corpuscular Volume 88.2 fL (81.0-99.0); Mean Platelet Volume 10.2 fL (7.4-10.4); Platelet Count 332 10^3/uL (130-400); Red Blood Cell Count 2.89 10^6/uL (4.20-5.40); Red Cell Dist. Width 18.5 % (11.5-14.5); White Blood Cell Count 10.6 10^3/uL (4.8-10.8)
[2024-04-12 06:31] LABS: Blood Urea Nitrogen 16 mg/dl (7-17); Calcium 7.9 mg/dl (8.4-10.2); Carbon Dioxide 25 mmol/L (22-30); Chloride 105 mmol/L (98-107); Estimated Creatinine Clearance 100 ml/min; Glucose 77 mg/dl (70-99); Potassium 3.9 mmol/L (3.5-5.1); Sodium 135 mmol/L (135-145); eGFR > 60.00
[2024-04-12 07:30] VITALS: BP 116/54
[2024-04-12 07:44] LABS: % Basophils 0.1 % (0-2); % Eosinophils 0.2 % (0-6); % Immature Granulocytes 0.6 % (0-0.5); % Lymphocytes 54.8 % (20.5-51.1); % Monocytes 10.7 % (1.7-9.3); % Neutrophils 33.6 % (42.2-75.2); Absolute Immature Granulocytes 0.1 10^3/uL (0-0.05); Absolute Lymphocytes 5.8 10^3/uL (1.2-3.4); Absolute Monocytes 1.1 10^3/uL (0.1-0.6); Absolute Neutrophils 3.6 10^3/uL (1.4-6.5); Nucleated Red Blood Cells % 0.2 %
[2024-04-12] MEDS: SUBUTEX 8 MG SL ×2 (09:36→21:14)
[2024-04-12] MEDS: DELTASONE 40 MG PO (09:36)
[2024-04-12] MEDS: PROTONIX 40 MG PO (09:36)
[2024-04-12] MEDS: THIAMINE INJECTION 100 MG IV (09:37)
[2024-04-12] MEDS: LIDOCAINE 4% PATCH TOPICAL (09:37)
--- NOTE | 2024-04-12 10:06 | CM ---
Reviewed the chart notes and spoke with the patient and her father at the bedside. Reviewed referral responses. Resent with updated information to [facility], and [facility]. CM continues to be
available to patient/family and is monitoring medical plan for needs at discharge.
Plan: SNF when bed found and precert obtained.
[2024-04-12 12:13] VITALS: BMI 23.3
[2024-04-12 15:50] VITALS: BP 139/70
--- NOTE | 2024-04-12 16:20 | W.PN.HOSP.TC ---
Today's Communication/Plan
-
Diet has been advanced with no acute issues.
Continue prednisone taper.
Continue bowel regimen with MiraLAX. No further lactulose.
Discharge planning
Assessment / Plan
Assessment / Plan
Impression.
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 Recently diagnosed Crohn's disease presented emergency room with
persistent abdominal pain and fever..
Persistent abdominal pain.
Partial small bowel obstruction secondary to Crohn's disease inflammatory stricture
Sepsis ruled out
Cirrhosis by records and imaging
Hepatitis C untreated.
Chronic normocytic anemia
Hypoalbuminemia
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
Acute urinary retention
Right foot/great toe ulcer
R upper arm amp with small dermal ulcer.
R ischial stage 2 small pressure injury.
Sacral/buttocks linear discolored stage 1 and 2 pressure injuries.
Plan:
Fever, leukocytosis, lactic acid elevation. Initial concern for clinical sepsis.
Chest x-ray with no infiltrates.
Blood cultures negative to date
With negative ID workup, antibiotics initially discontinued. (Now on Ancef for right great toe osteo - see below)
Right great toe ulcer with exposed bone. MRI concerning for distal tuft osteomyelitis.
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
-Continue antibiotics for 48-72 hours post op (ancef) - DC on Thursday
-Heel WBAT to RLE is acceptable
-Dressings to remain clean, dry, intact
PT recommending DC to SNF
Presentation with persistent abdominal pain
Partial small bowel obstruction secondary to inflammation/Crohn's disease flareup
CT scan in ED with oral contrast only:
1. Significant dilation of the proximal and mid small bowel, measuring up to 6.5 cm in diameter, with relative decompression of the distal small bowel and colon. Findings are suggestive of at least partial small intestinal obstruction, although
well-defined transition point is not appreciated.
2. Small amount of free fluid within the abdomen and pelvis.
3. No evidence of pneumatosis intestinalis or extraluminal air.
4. Mild nodularity of the hepatic contour, a nonspecific finding which may be seen in the setting of cirrhosis. Diffuse fatty infiltration of the liver.
? Partial SBO versus ileus, versus SBP (although minimal amount of free fluid on CT scan imaging)
Small bowel obstruction suspected secondary to inflammatory stricture with known Crohn's disease.
-s/p NGT decompression now removed
-04/02 IV Solu-Medrol 20mg q 8 started; transitioned to prednisone 40mg PO QD on 04/06/24with plans for slow taper (5mg weekly decrease until seen by GI as outpatient)
Diet has been advanced to low residue.
Cirrhosis by history and imaging (CT scan with hepatic nodularity)
Untreated hepatitis C reported
Ultrasound with minimal ascites
Hyperammonemia on admission not correlated with hepatic encephalopathy
Stop lactulose (no clear evidence of hepatic encephalopathy also reacting with severe abdominal cramps). Assure daily BMs with MiraLAX
Hold Lasix and Aldactone. No clear evidence of cirrhosis with decompensation including ascites on imaging.
Substance abuse with history of IVDA.
Urine drug screen positive for multiple substances
Repeated urine drug screen on 04/07 cleared and positive only for Suboxone
Continue Suboxone sublingual
Acute urinary retention.
Trial of voiding/bladder scan initiated on 04/05
DVT prophylaxis�subcu Lovenox
Full code
51 minutes spent on patient care
Anticipated Discharge: 24 - 48 hours
Subjective/Interval History
-
Date of Service: April 12, 2024
Objective Data
-
Labs:
Laboratory Results
04/12/24
05:48
WBC 10.6
Hgb 8.4 L
Hct 25.5 L
Plt Count 332
Sodium 135
Potassium 3.9
Chloride 105
Carbon Dioxide 25
BUN 16
Creatinine 0.4 L
Glucose 77
Calcium 7.9 L
Vital Signs:
Vital Signs
Temp Pulse Resp BP Pulse Ox
98.2 F 66 14 116/54 99
04/12/24 07:30 04/12/24 07:30 04/12/24 07:30 04/12/24 07:30 04/12/24 09:51
I&O
04/11/24 04/12/24 04/13/24
06:59 06:59 06:59
Intake Total 1080 / 1080 960 / 960
Balance 1080 / 1080 960 / 960
Physical Exam
-
General: Well Developed and No Apparent Distress
HEENT: Normocephalic, Atraumatic and Moist Mucous Membranes
Respiratory: Clear to Auscultation
Cardiac: Regular Rhythm and S1/S2; Negative Murmur, Rub or Gallop
GI: Other (mildly distended, non-tender)
Rectal: Deferred by Provider
Musculoskeletal: No Clubbing, No Cyanosis and Other (b/l LE edema; RUE amputation with ulcer covered with bandage)
Skin: Negative Rash
Neuro: Nonfocal/Grossly Intact
Psych: Calm
[2024-04-12] MEDS: LOVENOX 40 MG SC (17:59)
[2024-04-12] MEDS: MIRALAX 17 GRAMS PO (21:14)
[2024-04-12 23:40] VITALS: BP 142/65
[2024-04-13 07:40] VITALS: BP 146/67
[2024-04-13] MEDS: THIAMINE INJECTION 100 MG IV (08:47)
[2024-04-13] MEDS: SUBUTEX 8 MG SL ×2 (08:48→20:25)
[2024-04-13] MEDS: DELTASONE 40 MG PO (08:48)
[2024-04-13] MEDS: PROTONIX 40 MG PO (08:48)
[2024-04-13] MEDS: MIRALAX 17 GRAMS PO (08:48)
[2024-04-13] MEDS: LIDOCAINE 4% PATCH TOPICAL (08:49)
[2024-04-13 11:50] VITALS: BP 128/69; PULSE 90; O2SAT 99
--- NOTE | 2024-04-13 14:44 | CM ---
Reviewed the chart notes and spoke with the patient at the bedside. Sent updated clinicals to Tamar Ordonez, and Lacie Anderson. CM continues to be available to patient/family and is monitoring medical plan for needs at discharge.
Plan: Discharge to SNF/rehab once bed found and precert obtained.
[2024-04-13 15:35] VITALS: BP 158/79
--- NOTE | 2024-04-13 16:07 | W.PN.HOSP.TC ---
Today's Communication/Plan
-
Tolerates diet.
Continue bowel regimen.
Continue oral prednisone taper.
Discharge planning.
Assessment / Plan
Assessment / Plan
Impression.
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 Recently diagnosed Crohn's disease presented emergency room with
persistent abdominal pain and fever..
Persistent abdominal pain.
Partial small bowel obstruction secondary to Crohn's disease inflammatory stricture
Sepsis ruled out
Cirrhosis by records and imaging
Hepatitis C untreated.
Chronic normocytic anemia
Hypoalbuminemia
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
Acute urinary retention
Right foot/great toe ulcer
R upper arm amp with small dermal ulcer.
R ischial stage 2 small pressure injury.
Sacral/buttocks linear discolored stage 1 and 2 pressure injuries.
Plan:
Fever, leukocytosis, lactic acid elevation. Initial concern for clinical sepsis.
Chest x-ray with no infiltrates.
Blood cultures negative to date
With negative ID workup, antibiotics initially discontinued. (Now on Ancef for right great toe osteo - see below)
Right great toe ulcer with exposed bone. MRI concerning for distal tuft osteomyelitis.
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
-Continue antibiotics for 48-72 hours post op (ancef) - DC on Thursday
-Heel WBAT to RLE is acceptable
-Dressings to remain clean, dry, intact
PT recommending DC to SNF
Presentation with persistent abdominal pain
Partial small bowel obstruction secondary to inflammation/Crohn's disease flareup
CT scan in ED with oral contrast only:
1. Significant dilation of the proximal and mid small bowel, measuring up to 6.5 cm in diameter, with relative decompression of the distal small bowel and colon. Findings are suggestive of at least partial small intestinal obstruction, although
well-defined transition point is not appreciated.
2. Small amount of free fluid within the abdomen and pelvis.
3. No evidence of pneumatosis intestinalis or extraluminal air.
4. Mild nodularity of the hepatic contour, a nonspecific finding which may be seen in the setting of cirrhosis. Diffuse fatty infiltration of the liver.
? Partial SBO versus ileus, versus SBP (although minimal amount of free fluid on CT scan imaging)
Small bowel obstruction suspected secondary to inflammatory stricture with known Crohn's disease.
-s/p NGT decompression now removed
-04/02 IV Solu-Medrol 20mg q 8 started; transitioned to prednisone 40mg PO QD on 04/06/24with plans for slow taper (5mg weekly decrease until seen by GI as outpatient)
Diet has been advanced to low residue.
Cirrhosis by history and imaging (CT scan with hepatic nodularity)
Untreated hepatitis C reported
Ultrasound with minimal ascites
Hyperammonemia on admission not correlated with hepatic encephalopathy
Stop lactulose (no clear evidence of hepatic encephalopathy also reacting with severe abdominal cramps). Assure daily BMs with MiraLAX
Hold Lasix and Aldactone. No clear evidence of cirrhosis with decompensation including ascites on imaging.
Substance abuse with history of IVDA.
Urine drug screen positive for multiple substances
Repeated urine drug screen on 04/07 cleared and positive only for Suboxone
Continue Suboxone sublingual
Acute urinary retention.
Trial of voiding/bladder scan initiated on 04/05
DVT prophylaxis�subcu Lovenox
Full code
51 minutes spent on patient care
Anticipated Discharge: 24 - 48 hours
Subjective/Interval History
-
Date of Service: April 13, 2024
Objective Data
-
Vital Signs:
Vital Signs
Temp Pulse Resp BP Pulse Ox
98.3 F 68 16 158/79 98
04/13/24 15:35 04/13/24 15:35 04/13/24 15:35 04/13/24 15:35 04/13/24 15:35
I&O
04/12/24 04/13/24 04/14/24
06:59 06:59 06:59
Intake Total 960 / 960 600 / 600
Balance 960 / 960 600 / 600
Physical Exam
-
General: Well Developed and No Apparent Distress
HEENT: Normocephalic, Atraumatic and Moist Mucous Membranes
Respiratory: Clear to Auscultation
Cardiac: Regular Rhythm and S1/S2; Negative Murmur, Rub or Gallop
GI: Other (mildly distended, non-tender)
Rectal: Deferred by Provider
Musculoskeletal: No Clubbing, No Cyanosis and Other (b/l LE edema; RUE amputation with ulcer covered with bandage)
Skin: Negative Rash
Neuro: Nonfocal/Grossly Intact
Psych: Calm
[2024-04-13] MEDS: LOVENOX 40 MG SC (17:10)
--- NOTE | 2024-04-13 18:21 | W.PN.UPDATE ---
Update Note
Progress Note Update
One of the nurses had an exposure from a needle stick on 2N
SPT for blood work ordered.
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
--- NOTE | 2024-04-13 18:26 | PTCARENOTE ---
consent obtained for SPT testing, Dr notified and orders placed
[2024-04-13 20:25] LABS: Hepatitis B Surface Antigen Negative (Negative)
[2024-04-13] MEDS: MIRALAX PO (20:25)
[2024-04-13 20:35] LABS: HIV Combo Negative (Negative)
[2024-04-13 20:42] LABS: Hepatitis C Antibody Reactive (Negative)
[2024-04-13] MEDS: ANESTHETIC LOZENGE 1 LOZENGE PO (22:04)
[2024-04-13 23:38] VITALS: BP 129/74
[2024-04-14 07:35] VITALS: BP 188/119
[2024-04-14] MEDS: LIDOCAINE 4% PATCH TOPICAL (08:07)
[2024-04-14] MEDS: DELTASONE 40 MG PO (08:07)
[2024-04-14] MEDS: MIRALAX PO ×2 (08:07→20:06)
[2024-04-14] MEDS: SUBUTEX 8 MG SL ×2 (08:07→20:06)
[2024-04-14] MEDS: PROTONIX 40 MG PO (08:08)
[2024-04-14] MEDS: THIAMINE INJECTION 100 MG IV (08:08)
[2024-04-14] MEDS: FLUSH (NSS) 2 FLUSH IV (08:10)
--- NOTE | 2024-04-14 09:58 | WOUNDNOTE ---
R GREAT TOE AMP
--- NOTE | 2024-04-14 09:58 | WOUNDNOTE ---
R GREAT TOE PARTIAL AMP SITE
--- NOTE | 2024-04-14 09:59 | WOUNDNOTE ---
R GREAT TOE PARTIAL AMP SITE
--- NOTE | 2024-04-14 10:00 | WOUNDNOTE ---
R GREAT TOE PARTIAL TOE AMP.
--- NOTE | 2024-04-14 10:00 | PTCARENOTE ---
BP this AM was 188/112, pt in no apparent distress. MD made aware, no new orders at this time.
--- NOTE | 2024-04-14 11:30 | WOUNDNOTE ---
[facility] RN note: Patient seen around 10:00am. R great toe partial amp incision approximated with sutures intact, pinpoint ss drainage, no erythema. LE edema less than last week. Toes warm. Patient requesting compression for her legs and R arm stump.
Sacral skin with discolored scars and intact. Unable to get a good view of her R ischium. Patient reports skin is improved but she declined turning to the other side to assess L ischium. Discussed with patient's nurse Melinda who will assess L ischium
later. Patient is on a Centrella Max air bed. Heels off bed with bariatric air chair cushion. Patient's soft heel pads reapplied after changing protective heel foam dressings (heels blanchable red) and changing R great toe partial amp dressing. R
dorsal foot/ankle padded with gauze pad under Manuel. R knee high Orion wrap applied and L knee high Tubigrip applied. Updated and confirmed knee high compression with Dr. Casillas. Dr. Garg updated who approved R arm stump Tubigrip as tolerated.
t/c SPD and ordered size D Tubigrip. Updated RN Melinda. Care plan and discharge instructions updated.
--- NOTE | 2024-04-14 14:01 | W.PN.HOSP.TC ---
Today's Communication/Plan
-
Tolerates diet with
Has been on prednisone taper
Pending placement
Assessment / Plan
Assessment / Plan
Impression.
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 Recently diagnosed Crohn's disease presented emergency room with
persistent abdominal pain and fever..
Persistent abdominal pain.
Partial small bowel obstruction secondary to Crohn's disease inflammatory stricture
Sepsis ruled out
Cirrhosis by records and imaging
Hepatitis C untreated.
Chronic normocytic anemia
Hypoalbuminemia
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
Acute urinary retention
Right foot/great toe ulcer
R upper arm amp with small dermal ulcer.
R ischial stage 2 small pressure injury.
Sacral/buttocks linear discolored stage 1 and 2 pressure injuries.
Plan:
Fever, leukocytosis, lactic acid elevation. Initial concern for clinical sepsis.
Chest x-ray with no infiltrates.
Blood cultures negative to date
With negative ID workup, antibiotics initially discontinued. (Now on Ancef for right great toe osteo - see below)
Right great toe ulcer with exposed bone. MRI concerning for distal tuft osteomyelitis.
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
-Continue antibiotics for 48-72 hours post op (ancef) - DC on Thursday
-Heel WBAT to RLE is acceptable
-Dressings to remain clean, dry, intact
PT recommending DC to SNF
Presentation with persistent abdominal pain
Partial small bowel obstruction secondary to inflammation/Crohn's disease flareup
CT scan in ED with oral contrast only:
1. Significant dilation of the proximal and mid small bowel, measuring up to 6.5 cm in diameter, with relative decompression of the distal small bowel and colon. Findings are suggestive of at least partial small intestinal obstruction, although
well-defined transition point is not appreciated.
2. Small amount of free fluid within the abdomen and pelvis.
3. No evidence of pneumatosis intestinalis or extraluminal air.
4. Mild nodularity of the hepatic contour, a nonspecific finding which may be seen in the setting of cirrhosis. Diffuse fatty infiltration of the liver.
? Partial SBO versus ileus, versus SBP (although minimal amount of free fluid on CT scan imaging)
Small bowel obstruction suspected secondary to inflammatory stricture with known Crohn's disease.
-s/p NGT decompression now removed
-04/02 IV Solu-Medrol 20mg q 8 started; transitioned to prednisone 40mg PO QD on 04/06/24with plans for slow taper (5mg weekly decrease until seen by GI as outpatient)
Diet has been advanced to low residue.
Cirrhosis by history and imaging (CT scan with hepatic nodularity)
Untreated hepatitis C reported
Ultrasound with minimal ascites
Hyperammonemia on admission not correlated with hepatic encephalopathy
Stop lactulose (no clear evidence of hepatic encephalopathy also reacting with severe abdominal cramps). Assure daily BMs with MiraLAX
Hold Lasix and Aldactone. No clear evidence of cirrhosis with decompensation including ascites on imaging.
Substance abuse with history of IVDA.
Urine drug screen positive for multiple substances
Repeated urine drug screen on 04/07 cleared and positive only for Suboxone
Continue Suboxone sublingual
Acute urinary retention.
Trial of voiding/bladder scan initiated on 04/05
DVT prophylaxis�subcu Lovenox
Full code
51 minutes spent on patient care
Anticipated Discharge: Within 24 hours
Subjective/Interval History
-
Date of Service: April 14, 2024
Objective Data
-
Vital Signs:
Vital Signs
Temp Pulse Resp BP Pulse Ox
97.8 F 74 16 188/119 100
04/14/24 07:35 04/14/24 07:35 04/14/24 07:35 04/14/24 07:35 04/14/24 12:53
I&O
04/13/24 04/14/24 04/15/24
06:59 06:59 06:59
Intake Total 600 / 600 2400 / 2400
Balance 600 / 600 2400 / 2400
Physical Exam
-
General: Well Developed and No Apparent Distress
HEENT: Normocephalic, Atraumatic and Moist Mucous Membranes
Respiratory: Clear to Auscultation
Cardiac: Regular Rhythm and S1/S2; Negative Murmur, Rub or Gallop
GI: Other (mildly distended, non-tender)
Rectal: Deferred by Provider
Musculoskeletal: No Clubbing, No Cyanosis and Other (b/l LE edema; RUE amputation with ulcer covered with bandage)
Skin: Negative Rash
Neuro: Nonfocal/Grossly Intact
Psych: Calm
[2024-04-14 15:35] VITALS: BP 118/72
--- NOTE | 2024-04-14 15:58 | CM ---
Reviewed the chart notes and spoke with the patient's father at the bedside. [facility] have declined the patient. Message left with [facility] to inquire about possible bed available. CM continues to be available to
patient/family and is monitoring medical plan for needs at discharge.
Plan: Discharge to a SNF once a bed is found and precert obtained.
[2024-04-14] MEDS: LOVENOX SC (18:01)
[2024-04-14] MEDS: ANESTHETIC LOZENGE 1 LOZENGE PO (20:10)
[2024-04-14 23:02] VITALS: BP 95/60
[2024-04-15 05:24] VITALS: BMI 23.6
[2024-04-15 07:28] VITALS: BP 104/58
[2024-04-15] MEDS: THIAMINE INJECTION 100 MG IV (09:26)
[2024-04-15] MEDS: PROTONIX 40 MG PO (09:27)
[2024-04-15] MEDS: DELTASONE 35 MG PO (09:27)
[2024-04-15] MEDS: SUBUTEX 8 MG SL ×2 (09:27→20:39)
[2024-04-15] MEDS: LIDOCAINE 4% PATCH TOPICAL (09:27)
[2024-04-15] MEDS: MIRALAX PO ×2 (09:28→20:11)
--- NOTE | 2024-04-15 10:58 | CM ---
Addendum entered by Shy Cali RN 04/15/24 14:00:
[facility] declined the patient. Additional referrals sent.
Addendum entered by Shy Cali RN 04/15/24 11:12:
CM spoke with [facility], they will review.
Original Note:
Reviewed the chart notes. Another voice message left for Alissa Quezada with [facility] ([phone]). CM continues to be available to patient/family and is monitoring medical plan for needs at discharge.
Plan: Discharge to SNF once bed secured and auth obtained.
[2024-04-15 15:15] VITALS: BP 92/51
--- NOTE | 2024-04-15 15:48 | W.PN.HOSP.TC ---
Today's Communication/Plan
-
[facility]ically [facility]
Assessment / Plan
Assessment / Plan
Impression.
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 Recently diagnosed Crohn's disease presented emergency room with
persistent abdominal pain and fever..
Persistent abdominal pain.
Partial small bowel obstruction secondary to Crohn's disease inflammatory stricture
Sepsis ruled out
Cirrhosis by records and imaging
Hepatitis C untreated.
Chronic normocytic anemia
Hypoalbuminemia
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
Acute urinary retention
Right foot/great toe ulcer
R upper arm amp with small dermal ulcer.
R ischial stage 2 small pressure injury.
Sacral/buttocks linear discolored stage 1 and 2 pressure injuries.
Plan:
Fever, leukocytosis, lactic acid elevation. Initial concern for clinical sepsis.
Chest x-ray with no infiltrates.
Blood cultures negative to date
With negative ID workup, antibiotics initially discontinued. (Now on Ancef for right great toe osteo - see below)
Right great toe ulcer with exposed bone. MRI concerning for distal tuft osteomyelitis.
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
-Continue antibiotics for 48-72 hours post op (ancef) - DC on Thursday
-Heel WBAT to RLE is acceptable
-Dressings to remain clean, dry, intact
PT recommending DC to SNF
Presentation with persistent abdominal pain
Partial small bowel obstruction secondary to inflammation/Crohn's disease flareup
CT scan in ED with oral contrast only:
1. Significant dilation of the proximal and mid small bowel, measuring up to 6.5 cm in diameter, with relative decompression of the distal small bowel and colon. Findings are suggestive of at least partial small intestinal obstruction, although
well-defined transition point is not appreciated.
2. Small amount of free fluid within the abdomen and pelvis.
3. No evidence of pneumatosis intestinalis or extraluminal air.
4. Mild nodularity of the hepatic contour, a nonspecific finding which may be seen in the setting of cirrhosis. Diffuse fatty infiltration of the liver.
? Partial SBO versus ileus, versus SBP (although minimal amount of free fluid on CT scan imaging)
Small bowel obstruction suspected secondary to inflammatory stricture with known Crohn's disease.
-s/p NGT decompression now removed
-04/02 IV Solu-Medrol 20mg q 8 started; transitioned to prednisone 40mg PO QD on 04/06/24with plans for slow taper (5mg weekly decrease until seen by GI as outpatient)
Diet has been advanced to low residue.
Cirrhosis by history and imaging (CT scan with hepatic nodularity)
Untreated hepatitis C reported
Ultrasound with minimal ascites
Hyperammonemia on admission not correlated with hepatic encephalopathy
Stop lactulose (no clear evidence of hepatic encephalopathy also reacting with severe abdominal cramps). Assure daily BMs with MiraLAX
Hold Lasix and Aldactone. No clear evidence of cirrhosis with decompensation including ascites on imaging.
Substance abuse with history of IVDA.
Urine drug screen positive for multiple substances
Repeated urine drug screen on 04/07 cleared and positive only for Suboxone
Continue Suboxone sublingual
Acute urinary retention.
Trial of voiding/bladder scan initiated on 04/05
DVT prophylaxis�subcu Lovenox
Full code
51 minutes spent on patient care
Anticipated Discharge: Within 24 hours
Subjective/Interval History
-
Date of Service: April 15, 2024
Objective Data
-
Vital Signs:
Vital Signs
Temp Pulse Resp BP Pulse Ox
98.3 F 76 16 104/58 100
04/15/24 07:28 04/15/24 07:28 04/15/24 07:28 04/15/24 07:28 04/15/24 11:32
I&O
04/14/24 04/15/24 04/16/24
06:59 06:59 06:59
Intake Total 2400 / 2400 1440 / 1440
Balance 2400 / 2400 1440 / 1440
Physical Exam
-
General: Well Developed and No Apparent Distress
HEENT: Normocephalic, Atraumatic and Moist Mucous Membranes
Respiratory: Clear to Auscultation
Cardiac: Regular Rhythm and S1/S2; Negative Murmur, Rub or Gallop
GI: Other (mildly distended, non-tender)
Rectal: Deferred by Provider
Musculoskeletal: No Clubbing, No Cyanosis and Other (b/l LE edema; RUE amputation with ulcer covered with bandage)
Skin: Negative Rash
Neuro: Nonfocal/Grossly Intact
Psych: Calm
[2024-04-15 16:16] VITALS: BP 149/97
[2024-04-15] MEDS: LOVENOX SC (17:14)
[2024-04-15 23:20] VITALS: BP 115/68
[2024-04-16 05:36] VITALS: BMI 24.0
[2024-04-16 07:52] VITALS: BP 131/95
[2024-04-16] MEDS: PROTONIX 40 MG PO (09:30)
[2024-04-16] MEDS: DELTASONE 35 MG PO (09:30)
[2024-04-16] MEDS: THIAMINE INJECTION 100 MG IV (09:31)
[2024-04-16] MEDS: SUBUTEX SL ×2 (09:33→20:43)
[2024-04-16] MEDS: LIDOCAINE 4% PATCH TOPICAL (09:33)
[2024-04-16] MEDS: MIRALAX PO ×2 (09:33→20:43)
[2024-04-16] MEDS: SUBUTEX 8 MG SL (09:40)
--- NOTE | 2024-04-16 09:50 | PTCARENOTE ---
Patient stated to this RN that she has been spitting out ordered Subutex for the 'past 3 days after the nurse leaves the room.' MD at bedside, education provided, patient in agreement to take this AM's dose of Subutex. This RN at bedside, patient
spit out Subutex after a few minutes and stated to this RN she will not be taking it. MD made aware.
--- NOTE | 2024-04-16 11:05 | W.PN.HOSP.TC ---
Today's Communication/Plan
-
cont steroids
pain control
await placement
Assessment / Plan
Assessment / Plan
Impression.
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 Recently diagnosed Crohn's disease presented emergency room with
persistent abdominal pain and fever..
Persistent abdominal pain.
Partial small bowel obstruction secondary to Crohn's disease inflammatory stricture
Sepsis ruled out
Cirrhosis by records and imaging
Hepatitis C untreated.
Chronic normocytic anemia
Hypoalbuminemia
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
Acute urinary retention
Right foot/great toe ulcer
R upper arm amp with small dermal ulcer.
R ischial stage 2 small pressure injury.
Sacral/buttocks linear discolored stage 1 and 2 pressure injuries.
Plan:
Fever, leukocytosis, lactic acid elevation. Initial concern for clinical sepsis.
Chest x-ray with no infiltrates.
Blood cultures negative to date
With negative ID workup, antibiotics initially discontinued. (Now on Ancef for right great toe osteo - see below)
Right great toe ulcer with exposed bone. MRI concerning for distal tuft osteomyelitis.
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
-Continue antibiotics for 48-72 hours post op (ancef) - DCed on 04/11/24
-Heel WBAT to RLE is acceptable
-Dressings to remain clean, dry, intact
PT recommending DC to SNF
Presentation with persistent abdominal pain
Partial small bowel obstruction secondary to inflammation/Crohn's disease flareup
CT scan in ED with oral contrast only:
1. Significant dilation of the proximal and mid small bowel, measuring up to 6.5 cm in diameter, with relative decompression of the distal small bowel and colon. Findings are suggestive of at least partial small intestinal obstruction, although
well-defined transition point is not appreciated.
2. Small amount of free fluid within the abdomen and pelvis.
3. No evidence of pneumatosis intestinalis or extraluminal air.
4. Mild nodularity of the hepatic contour, a nonspecific finding which may be seen in the setting of cirrhosis. Diffuse fatty infiltration of the liver.
? Partial SBO versus ileus, versus SBP (although minimal amount of free fluid on CT scan imaging)
Small bowel obstruction suspected secondary to inflammatory stricture with known Crohn's disease.
-s/p NGT decompression now removed
-04/02 IV Solu-Medrol 20mg q 8 started; transitioned to prednisone 40mg PO QD on 04/06/24with plans for slow taper (5mg weekly decrease until seen by GI as outpatient)
Diet has been advanced to low residue.
Cirrhosis by history and imaging (CT scan with hepatic nodularity)
Untreated hepatitis C reported
Ultrasound with minimal ascites
Hyperammonemia on admission not correlated with hepatic encephalopathy
Stop lactulose (no clear evidence of hepatic encephalopathy also reacting with severe abdominal cramps). Assure daily BMs with MiraLAX
Hold Lasix and Aldactone. No clear evidence of cirrhosis with decompensation including ascites on imaging.
Substance abuse with history of IVDA.
Urine drug screen positive for multiple substances
Repeated urine drug screen on 04/07 cleared and positive only for Suboxone
Continue Suboxone sublingual-intermittently refusing it.
Acute urinary retention.
Trial of voiding/bladder scan initiated on 04/05
DVT prophylaxis�subcu Lovenox
Full code
Anticipated Discharge: > 48 hours
Subjective/Interval History
-
Date of Service: April 16, 2024
Tolerating diet
Denies any pain
Intermittently refusing to take Suboxone
Objective Data
-
Vital Signs:
Vital Signs
Temp Pulse Resp BP Pulse Ox
98.4 F 79 18 131/95 99
04/16/24 07:52 04/16/24 07:52 04/16/24 07:52 04/16/24 07:52 04/16/24 07:52
I&O
04/15/24 04/16/24 04/17/24
06:59 06:59 06:59
Intake Total 1440 / 1440 1440 / 1440
Balance 1440 / 1440 1440 / 1440
Physical Exam
-
General: Well Developed and No Apparent Distress
HEENT: Normocephalic, Atraumatic and Moist Mucous Membranes
Respiratory: Clear to Auscultation
Cardiac: Regular Rhythm and S1/S2; Negative Murmur, Rub or Gallop
GI: Nondistended
Rectal: Deferred by Provider
Musculoskeletal: No Clubbing, No Cyanosis and Other (b/l LE edema; RUE amputation with ulcer covered with bandage)
Skin: Negative Rash
Neuro: Awake, Alert, Oriented and Nonfocal/Grossly Intact
Psych: Calm
[2024-04-16] MEDS: BENADRYL 25 MG PO (11:27)
[2024-04-16 15:44] VITALS: BP 129/82
[2024-04-16] MEDS: ZOFRAN 4 MG IV (17:15)
[2024-04-16] MEDS: LOVENOX 40 MG SC (17:15)
[2024-04-16] MEDS: ANESTHETIC LOZENGE 1 LOZENGE PO (17:17)
[2024-04-16 23:00] VITALS: BP 112/75
--- NOTE | 2024-04-17 04:19 | PTCARENOTE ---
Pt refused Subutex and miralax at bedtime, educated on benefits of both medications and continued to refuse. Plan of care ongoing.
[2024-04-17 06:00] VITALS: BMI 23.3
[2024-04-17 07:30] VITALS: BP 107/65
[2024-04-17] MEDS: LIDOCAINE 4% PATCH TOPICAL (09:26)
[2024-04-17] MEDS: THIAMINE INJECTION 100 MG IV (09:27)
[2024-04-17] MEDS: MIRALAX PO ×2 (09:27→20:57)
[2024-04-17] MEDS: PROTONIX 40 MG PO (09:27)
[2024-04-17] MEDS: DELTASONE 35 MG PO (09:28)
[2024-04-17] MEDS: SUBUTEX SL ×2 (09:28→20:56)
--- NOTE | 2024-04-17 09:59 | W.PN.HOSP.TC ---
Today's Communication/Plan
-
Cont prednisone
refusing subutex
Await placement
check labs
Assessment / Plan
Assessment / Plan
Impression.
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 Recently diagnosed Crohn's disease presented emergency room with
persistent abdominal pain and fever..
Persistent abdominal pain.
Partial small bowel obstruction secondary to Crohn's disease inflammatory stricture
Sepsis ruled out
Cirrhosis by records and imaging
Hepatitis C untreated.
Chronic normocytic anemia
Hypoalbuminemia
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
Acute urinary retention
Right foot/great toe ulcer
R upper arm amp with small dermal ulcer.
R ischial stage 2 small pressure injury.
Sacral/buttocks linear discolored stage 1 and 2 pressure injuries.
Plan:
Fever, leukocytosis, lactic acid elevation. Initial concern for clinical sepsis.
Chest x-ray with no infiltrates.
Blood cultures negative to date
With negative ID workup, antibiotics initially discontinued. (Now on Ancef for right great toe osteo - see below)
Right great toe ulcer with exposed bone. MRI concerning for distal tuft osteomyelitis.
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
-Continue antibiotics for 48-72 hours post op (ancef) - DCed on 04/11/24
-Heel WBAT to RLE is acceptable
-Dressings to remain clean, dry, intact
PT recommending DC to SNF
Presentation with persistent abdominal pain
Partial small bowel obstruction secondary to inflammation/Crohn's disease flareup
CT scan in ED with oral contrast only:
1. Significant dilation of the proximal and mid small bowel, measuring up to 6.5 cm in diameter, with relative decompression of the distal small bowel and colon. Findings are suggestive of at least partial small intestinal obstruction, although
well-defined transition point is not appreciated.
2. Small amount of free fluid within the abdomen and pelvis.
3. No evidence of pneumatosis intestinalis or extraluminal air.
4. Mild nodularity of the hepatic contour, a nonspecific finding which may be seen in the setting of cirrhosis. Diffuse fatty infiltration of the liver.
? Partial SBO versus ileus, versus SBP (although minimal amount of free fluid on CT scan imaging)
Small bowel obstruction suspected secondary to inflammatory stricture with known Crohn's disease.
-s/p NGT decompression now removed
-04/02 IV Solu-Medrol 20mg q 8 started; transitioned to prednisone 40mg PO QD on 04/06/24with plans for slow taper (5mg weekly decrease until seen by GI as outpatient)
Diet has been advanced to low residue.
Cirrhosis by history and imaging (CT scan with hepatic nodularity)
Untreated hepatitis C reported
Ultrasound with minimal ascites
Hyperammonemia on admission not correlated with hepatic encephalopathy
Stop lactulose (no clear evidence of hepatic encephalopathy also reacting with severe abdominal cramps). Assure daily BMs with MiraLAX
Hold Lasix and Aldactone. No clear evidence of cirrhosis with decompensation including ascites on imaging.
Substance abuse with history of IVDA.
Urine drug screen positive for multiple substances
Repeated urine drug screen on 04/07 cleared and positive only for Suboxone
Continue Suboxone sublingual-intermittently refusing it.
Acute urinary retention.
Trial of voiding/bladder scan initiated on 04/05
DVT prophylaxis�subcu Lovenox
Full code
Anticipated Discharge: Within 24 hours
Subjective/Interval History
-
Date of Service: April 17, 2024
Tolerating diet
denies abd pain or diarrhea
Objective Data
-
Vital Signs:
Vital Signs
Temp Pulse Resp BP Pulse Ox
98.3 F 80 16 107/65 100
04/17/24 07:30 04/17/24 07:30 04/17/24 07:30 04/17/24 07:30 04/17/24 07:30
I&O
04/16/24 04/17/24 04/18/24
06:59 06:59 06:59
Intake Total 1440 / 1440 1919
Balance 1440 / 1440 1919
Physical Exam
-
General: Well Developed and No Apparent Distress
HEENT: Normocephalic, Atraumatic and Moist Mucous Membranes
Respiratory: Clear to Auscultation
Cardiac: Regular Rhythm and S1/S2; Negative Murmur, Rub or Gallop
GI: Nondistended
Rectal: Deferred by Provider
Musculoskeletal: No Clubbing, No Cyanosis and Other (b/l LE edema; RUE amputation with ulcer covered with bandage)
Skin: Negative Rash
Neuro: Awake, Alert, Oriented and Nonfocal/Grossly Intact
Psych: Calm
[2024-04-17] MEDS: ZOFRAN 4 MG IV ×2 (10:53→21:13)
[2024-04-17] MEDS: MYLICON 80 MG PO ×3 (10:53→22:27)
[2024-04-17] MEDS: SUBUTEX 8 MG SL ×2 (11:18→21:13)
--- NOTE | 2024-04-17 11:20 | PTCARENOTE ---
Patient refusing Subutex past couple days. Patient began having abd pain and nausea. Patient willing to take Subutex now. Zofran and Mylicon also given per order. Patient states she feels better. made aware.
[2024-04-17] MEDS: ANESTHETIC LOZENGE 1 LOZENGE PO ×2 (13:44→16:30)
[2024-04-17 15:30] VITALS: BP 115/75
[2024-04-17] MEDS: LOVENOX 40 MG SC (17:08)
[2024-04-17] MEDS: OFIRMEV 100 IV (23:09)
[2024-04-17 23:14] VITALS: BP 143/84
--- NOTE | 2024-04-17 23:17 | PTCARENOTE ---
Patient c/o 10/10 upper abd pain after eating her Beef Justyn. 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 Ofirmev and heating pad ordered.
[2024-04-18] MEDS: MAALOX PO ×2 (00:26→00:46)
[2024-04-18] MEDS: COMPAZINE 10 MG IV (00:33)
--- NOTE | 2024-04-18 00:43 | PTCARENOTE ---
Pt continues to have nausea and now vomiting. Compazine ordered and administered. Maalox refused
--- NOTE | 2024-04-18 00:43 | W.PN.UPDATE ---
Update Note
Progress Note Update
Patient complained of abdominal pain after eating beef Justyn. Per patient she had small bowel movement today.
On exam patient is alert and oriented x3 afebrile. Patient complained of generalized abdominal pain that started after eating beef Justyn, now associated with nausea and vomiting x1. Patient has been refusing Miralax that was recommended by GI.
-On exam abdomen is soft, non tender, nondistended, and +bowel sound.
Plan
abdominal x-ray ordered, report is pending.
antiemetics and Maalox given. Recheck on the patient she is comfortable sleeping.
Small dose of Dilaudid ordered but not given as the pain subsided.
[2024-04-18] MEDS: MAALOX 30 ML PO (00:51)
[2024-04-18 06:00] VITALS: BMI 23.6
[2024-04-18 06:42] LABS: Hematocrit 28.4 % (37.0-47.0); Hemoglobin 9.2 g/dL (12.0-16.0); Mean Corp Hgb Conc. 32.4 g/dL (33.0-37.0); Mean Corpuscular Hgb 29.1 pg (27.0-31.0); Mean Corpuscular Volume 89.9 fL (81.0-99.0); Mean Platelet Volume 9.8 fL (7.4-10.4); Platelet Count 362 10^3/uL (130-400); Red Blood Cell Count 3.16 10^6/uL (4.20-5.40); White Blood Cell Count 12.8 10^3/uL (4.8-10.8)
[2024-04-18 07:05] LABS: Blood Urea Nitrogen 17 mg/dl (7-17); Calcium 7.6 mg/dl (8.4-10.2); Carbon Dioxide 24 mmol/L (22-30); Chloride 111 mmol/L (98-107); Estimated Creatinine Clearance 100 ml/min; Glucose 77 mg/dl (70-99); Sodium 140 mmol/L (135-145); eGFR > 60.00
[2024-04-18 07:20] VITALS: BP 125/65
[2024-04-18 07:54] LABS: Band Neutrophils 0 % (0-3); Lymphocytes 34 % (20-51); Monocytes 5 % (2-9); Segmented Neutrophils 55 % (42-75)
[2024-04-18 07:55] LABS: Atypical Lymphocytes 5 %; Myelocytes 1 % (-); Normal RBC Morphology Yes; Platelets Checked Yes
[2024-04-18 07:56] LABS: Smudge Cells 3+; Total Cells Counted 100
[2024-04-18] MEDS: LIDOCAINE 4% PATCH TOPICAL (08:17)
[2024-04-18] MEDS: DELTASONE 35 MG PO (08:17)
[2024-04-18] MEDS: PROTONIX 40 MG PO (08:17)
[2024-04-18] MEDS: MIRALAX PO (08:17)
[2024-04-18] MEDS: THIAMINE INJECTION 100 MG IV (08:17)
[2024-04-18] MEDS: SUBUTEX 8 MG SL ×2 (08:19→21:13)
[2024-04-18] MEDS: MIRALAX 17 GRAMS PO ×2 (11:06→21:12)
--- NOTE | 2024-04-18 14:29 | W.PN.HOSP.TC ---
Today's Communication/Plan
-
Oral steroid taper.
Supportive care.
Placement to intermediate facility for rehab
Assessment / Plan
Assessment / Plan
Impression.
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 Recently diagnosed Crohn's disease presented emergency room with
persistent abdominal pain and fever..
Persistent abdominal pain.
Partial small bowel obstruction secondary to Crohn's disease inflammatory stricture
Sepsis ruled out
Cirrhosis by records and imaging
Hepatitis C untreated.
Chronic normocytic anemia
Hypoalbuminemia
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
Acute urinary retention
Right foot/great toe ulcer
R upper arm amp with small dermal ulcer.
R ischial stage 2 small pressure injury.
Sacral/buttocks linear discolored stage 1 and 2 pressure injuries.
Plan:
Fever, leukocytosis, lactic acid elevation. Initial concern for clinical sepsis.
Chest x-ray with no infiltrates.
Blood cultures negative to date
With negative ID workup, antibiotics initially discontinued. (Now on Ancef for right great toe osteo - see below)
Right great toe ulcer with exposed bone. MRI concerning for distal tuft osteomyelitis.
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
-Continue antibiotics for 48-72 hours post op (ancef) - DCed on 04/11/24
-Heel WBAT to RLE is acceptable
-Dressings to remain clean, dry, intact
PT recommending DC to SNF
Presentation with persistent abdominal pain
Partial small bowel obstruction secondary to inflammation/Crohn's disease flareup
CT scan in ED with oral contrast only:
1. Significant dilation of the proximal and mid small bowel, measuring up to 6.5 cm in diameter, with relative decompression of the distal small bowel and colon. Findings are suggestive of at least partial small intestinal obstruction, although
well-defined transition point is not appreciated.
2. Small amount of free fluid within the abdomen and pelvis.
3. No evidence of pneumatosis intestinalis or extraluminal air.
4. Mild nodularity of the hepatic contour, a nonspecific finding which may be seen in the setting of cirrhosis. Diffuse fatty infiltration of the liver.
? Partial SBO versus ileus, versus SBP (although minimal amount of free fluid on CT scan imaging)
Small bowel obstruction suspected secondary to inflammatory stricture with known Crohn's disease.
-s/p NGT decompression now removed
-04/02 IV Solu-Medrol 20mg q 8 started; transitioned to prednisone 40mg PO QD on 04/06/24with plans for slow taper (5mg weekly decrease until seen by GI as outpatient)
Diet has been advanced to low residue.
Cirrhosis by history and imaging (CT scan with hepatic nodularity)
Untreated hepatitis C reported
Ultrasound with minimal ascites
Hyperammonemia on admission not correlated with hepatic encephalopathy
Stop lactulose (no clear evidence of hepatic encephalopathy also reacting with severe abdominal cramps). Assure daily BMs with MiraLAX
Hold Lasix and Aldactone. No clear evidence of cirrhosis with decompensation including ascites on imaging.
Substance abuse with history of IVDA.
Urine drug screen positive for multiple substances
Repeated urine drug screen on 04/07 cleared and positive only for Suboxone
Continue Suboxone sublingual-intermittently refusing it.
Acute urinary retention.
Trial of voiding/bladder scan initiated on 04/05
DVT prophylaxis�subcu Lovenox
Full code
Anticipated Discharge: Within 24 hours
Subjective/Interval History
-
Date of Service: April 18, 2024
Objective Data
-
Labs:
Laboratory Results
04/18/24
06:10
WBC 12.8 H
Hgb 9.2 L
Hct 28.4 L
Plt Count 362
Sodium 140
Potassium 4.0
Chloride 111 H
Carbon Dioxide 24
BUN 17
Creatinine 0.3 L
Glucose 77
Calcium 7.6 L
Vital Signs:
Vital Signs
Temp Pulse Resp BP Pulse Ox
98.7 F 84 16 125/65 98
04/18/24 07:20 04/18/24 07:20 04/18/24 07:20 04/18/24 07:20 04/18/24 07:20
I&O
04/17/24 04/18/24 04/19/24
06:59 06:59 06:59
Intake Total 1919 940 / 940
Balance 1919 940 / 940
Physical Exam
-
General: Well Developed and No Apparent Distress
HEENT: Normocephalic, Atraumatic and Moist Mucous Membranes
Respiratory: Clear to Auscultation
Cardiac: Regular Rhythm and S1/S2; Negative Murmur, Rub or Gallop
GI: Nondistended
Rectal: Deferred by Provider
Musculoskeletal: No Clubbing, No Cyanosis and Other (b/l LE edema; RUE amputation with ulcer covered with bandage)
Skin: Negative Rash
Neuro: Awake, Alert, Oriented and Nonfocal/Grossly Intact
Psych: Calm
[2024-04-18 14:53] VITALS: BP 134/80; PULSE 87
[2024-04-18 15:15] VITALS: BP 122/90
[2024-04-18 15:55] VITALS: BP 134/80; PULSE 87
--- NOTE | 2024-04-18 16:27 | CM ---
Reviewed the chart notes and spoke with the patient at the bedside and the patient's father via telephone. Jazmin from [facility] has offered a bed with understand [facility]. Precert started with [facility]I ([phone]) spoke with Tami. Faxed clinical to [phone]. continues to be available to patient/family and is monitoring medical plan for needs at discharge.
Plan: Discharge to [facility] once auth received.
[2024-04-18] MEDS: LOVENOX 40 MG SC (17:23)
[2024-04-18] MEDS: ANESTHETIC LOZENGE 1 LOZENGE PO (21:15)
--- NOTE | 2024-04-18 23:05 | PTCARENOTE ---
A Subutex was found in patient's bed. This RN wasted in [place].
[2024-04-18 23:13] VITALS: BP 122/61
[2024-04-19 06:00] VITALS: BMI 23.5
[2024-04-19] MEDS: LIDOCAINE 4% PATCH TOPICAL (07:59)
[2024-04-19] MEDS: SUBUTEX SL ×2 (07:59→21:00)
[2024-04-19] MEDS: MIRALAX PO (07:59)
[2024-04-19] MEDS: PROTONIX 40 MG PO (07:59)
[2024-04-19 08:00] VITALS: BP 123/77
[2024-04-19] MEDS: DELTASONE 35 MG PO (08:00)
[2024-04-19] MEDS: THIAMINE INJECTION 100 MG IV (08:00)
[2024-04-19] MEDS: ZOFRAN 4 MG IV ×2 (08:05→16:50)
--- NOTE | 2024-04-19 10:28 | PTCARENOTE ---
received the patient from shift superintendent. drowsy, awakens to voice. refused lidocaine patch and subutex SL, c/o of nausea this AM, PRN IV Zofran given. patient denied having relief from Zofran but took her PO meds this AM. encouraged to turn and
reposition. cont to monitor
--- NOTE | 2024-04-19 14:28 | CM ---
Reviewed the chart notes and placed call to the patient's insurance. Waited 40 minutes on hold and was transferred to UR department for SNF/rehab auth. Left voice message with call back information. CM continues to be available to patient/family
and is monitoring medical plan for needs at discharge.
Plan: Discharge to [facility] once auth approval received.
--- NOTE | 2024-04-19 15:45 | W.PN.HOSP.TC ---
Today's Communication/Plan
-
Tolerates diet.
Continue prednisone taper.
Rehab placement pending insurance authorization
Assessment / Plan
Assessment / Plan
Impression.
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 Recently diagnosed Crohn's disease presented emergency room with
persistent abdominal pain and fever..
Persistent abdominal pain.
Partial small bowel obstruction secondary to Crohn's disease inflammatory stricture
Sepsis ruled out
Cirrhosis by records and imaging
Hepatitis C untreated.
Chronic normocytic anemia
Hypoalbuminemia
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
Acute urinary retention
Right foot/great toe ulcer
R upper arm amp with small dermal ulcer.
R ischial stage 2 small pressure injury.
Sacral/buttocks linear discolored stage 1 and 2 pressure injuries.
Plan:
Fever, leukocytosis, lactic acid elevation. Initial concern for clinical sepsis.
Chest x-ray with no infiltrates.
Blood cultures negative to date
With negative ID workup, antibiotics initially discontinued. (Now on Ancef for right great toe osteo - see below)
Right great toe ulcer with exposed bone. MRI concerning for distal tuft osteomyelitis.
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
-Continue antibiotics for 48-72 hours post op (ancef) - DCed on 04/11/24
-Heel WBAT to RLE is acceptable
-Dressings to remain clean, dry, intact
PT recommending DC to SNF
Presentation with persistent abdominal pain
Partial small bowel obstruction secondary to inflammation/Crohn's disease flareup
CT scan in ED with oral contrast only:
1. Significant dilation of the proximal and mid small bowel, measuring up to 6.5 cm in diameter, with relative decompression of the distal small bowel and colon. Findings are suggestive of at least partial small intestinal obstruction, although
well-defined transition point is not appreciated.
2. Small amount of free fluid within the abdomen and pelvis.
3. No evidence of pneumatosis intestinalis or extraluminal air.
4. Mild nodularity of the hepatic contour, a nonspecific finding which may be seen in the setting of cirrhosis. Diffuse fatty infiltration of the liver.
? Partial SBO versus ileus, versus SBP (although minimal amount of free fluid on CT scan imaging)
Small bowel obstruction suspected secondary to inflammatory stricture with known Crohn's disease.
-s/p NGT decompression now removed
-04/02 IV Solu-Medrol 20mg q 8 started; transitioned to prednisone 40mg PO QD on 04/06/24with plans for slow taper (5mg weekly decrease until seen by GI as outpatient)
Diet has been advanced to low residue.
Cirrhosis by history and imaging (CT scan with hepatic nodularity)
Untreated hepatitis C reported
Ultrasound with minimal ascites
Hyperammonemia on admission not correlated with hepatic encephalopathy
Stop lactulose (no clear evidence of hepatic encephalopathy also reacting with severe abdominal cramps). Assure daily BMs with MiraLAX
Hold Lasix and Aldactone. No clear evidence of cirrhosis with decompensation including ascites on imaging.
Substance abuse with history of IVDA.
Urine drug screen positive for multiple substances
Repeated urine drug screen on 04/07 cleared and positive only for Suboxone
Continue Suboxone sublingual-intermittently refusing it.
Acute urinary retention.
Trial of voiding/bladder scan initiated on 04/05
DVT prophylaxis�subcu Lovenox
Full code
Anticipated Discharge: Within 24 hours
Subjective/Interval History
-
Date of Service: April 19, 2024
Objective Data
-
Vital Signs:
Vital Signs
Temp Pulse Resp BP Pulse Ox
98.1 F 100 16 123/77 100
04/19/24 08:00 04/19/24 08:00 04/19/24 08:00 04/19/24 08:00 04/19/24 08:33
I&O
04/18/24 04/19/24 04/20/24
06:59 06:59 06:59
Intake Total 940 / 940 1620 / 1620
Balance 940 / 940 1620 / 1620
Physical Exam
-
General: Well Developed and No Apparent Distress
HEENT: Normocephalic, Atraumatic and Moist Mucous Membranes
Respiratory: Clear to Auscultation
Cardiac: Regular Rhythm and S1/S2; Negative Murmur, Rub or Gallop
GI: Nondistended
Rectal: Deferred by Provider
Musculoskeletal: No Clubbing, No Cyanosis and Other (b/l LE edema; RUE amputation with ulcer covered with bandage)
Skin: Negative Rash
Neuro: Awake, Alert, Oriented and Nonfocal/Grossly Intact
Psych: Calm
[2024-04-19 16:00] VITALS: BP 109/63
--- NOTE | 2024-04-19 16:11 | PTCARENOTE ---
bladder scanned the patient for not voiding with 203 mls. denies pressure feeling and urgency, bladder isnt distended. will repeat if not voiding. c/o nausea. very poor PO intake. Po fluids incouraged. vomited once this shift. made aware.
[2024-04-19] MEDS: LOVENOX 40 MG SC (16:50)
[2024-04-19] MEDS: MIRALAX 17 GRAMS PO (21:18)
[2024-04-19 23:46] VITALS: BP 116/72
[2024-04-20 05:51] VITALS: BMI 22.5
[2024-04-20 08:00] VITALS: BP 160/91
[2024-04-20] MEDS: DELTASONE 35 MG PO (08:42)
[2024-04-20] MEDS: PROTONIX 40 MG PO (08:42)
[2024-04-20] MEDS: SUBUTEX 8 MG SL (08:43)
[2024-04-20] MEDS: MIRALAX 17 GRAMS PO (08:43)
[2024-04-20] MEDS: THIAMINE INJECTION 100 MG IV (08:43)
[2024-04-20] MEDS: LIDOCAINE 4% PATCH 1 PATCH TOPICAL (08:43)
[2024-04-20 09:47] VITALS: BP 141/91
--- NOTE | 2024-04-20 09:50 | CM ---
Reviewed the chart notes. Spoke late yesterday with November with insurance company. [facility] is [id number]. Provided her with the facilities that declined the patient. November sent information forward to her Manager Database Administration. Provided
[facility] admissions liaison Jazmin ([phone]) contact information. Received voice message from November that one time contract will need to be completed which will take until tomorrow (04/21/24). Insurance will faxed the contract approval once
it is completed. Per message, NRD will be 04/27/24. Left voice message for Jazmin at [facility] to confirm contract to be accepted. CM continues to be available to patient/family and is monitoring medical plan for needs at discharge.
Plan: Discharge hopefully to [facility] once contract accepted and in place.
--- NOTE | 2024-04-20 14:12 | W.PN.HOSP.TC ---
Today's Communication/Plan
-
[facility] placement to [facility] facility
Continue prednisone taper.
Assessment / Plan
Assessment / Plan
Impression.
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 Recently diagnosed Crohn's disease presented emergency room with
persistent abdominal pain and fever..
Persistent abdominal pain.
Partial small bowel obstruction secondary to Crohn's disease inflammatory stricture
Sepsis ruled out
Cirrhosis by records and imaging
Hepatitis C untreated.
Chronic normocytic anemia
Hypoalbuminemia
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
Acute urinary retention
Right foot/great toe ulcer
R upper arm amp with small dermal ulcer.
R ischial stage 2 small pressure injury.
Sacral/buttocks linear discolored stage 1 and 2 pressure injuries.
Plan:
Fever, leukocytosis, lactic acid elevation. Initial concern for clinical sepsis.
Chest x-ray with no infiltrates.
Blood cultures negative to date
With negative ID workup, antibiotics initially discontinued. (Now on Ancef for right great toe osteo - see below)
Right great toe ulcer with exposed bone. MRI concerning for distal tuft osteomyelitis.
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
-Continue antibiotics for 48-72 hours post op (ancef) - DCed on 04/11/24
-Heel WBAT to RLE is acceptable
-Dressings to remain clean, dry, intact
PT recommending DC to SNF
Presentation with persistent abdominal pain
Partial small bowel obstruction secondary to inflammation/Crohn's disease flareup
CT scan in ED with oral contrast only:
1. Significant dilation of the proximal and mid small bowel, measuring up to 6.5 cm in diameter, with relative decompression of the distal small bowel and colon. Findings are suggestive of at least partial small intestinal obstruction, although
well-defined transition point is not appreciated.
2. Small amount of free fluid within the abdomen and pelvis.
3. No evidence of pneumatosis intestinalis or extraluminal air.
4. Mild nodularity of the hepatic contour, a nonspecific finding which may be seen in the setting of cirrhosis. Diffuse fatty infiltration of the liver.
? Partial SBO versus ileus, versus SBP (although minimal amount of free fluid on CT scan imaging)
Small bowel obstruction suspected secondary to inflammatory stricture with known Crohn's disease.
-s/p NGT decompression now removed
-04/02 IV Solu-Medrol 20mg q 8 started; transitioned to prednisone 40mg PO QD on 04/06/24with plans for slow taper (5mg weekly decrease until seen by GI as outpatient)
Diet has been advanced to low residue.
Cirrhosis by history and imaging (CT scan with hepatic nodularity)
Untreated hepatitis C reported
Ultrasound with minimal ascites
Hyperammonemia on admission not correlated with hepatic encephalopathy
Stop lactulose (no clear evidence of hepatic encephalopathy also reacting with severe abdominal cramps). Assure daily BMs with MiraLAX
Hold Lasix and Aldactone. No clear evidence of cirrhosis with decompensation including ascites on imaging.
Substance abuse with history of IVDA.
Urine drug screen positive for multiple substances
Repeated urine drug screen on 04/07 cleared and positive only for Suboxone
Continue Suboxone sublingual-intermittently refusing it.
Acute urinary retention.
Trial of voiding/bladder scan initiated on 04/05
DVT prophylaxis�subcu Lovenox
Full code
Anticipated Discharge: Within 24 hours
Subjective/Interval History
-
Date of Service: April 20, 2024
Objective Data
-
Vital Signs:
Vital Signs
Temp Pulse Resp BP Pulse Ox
98.6 F 88 16 141/91 100
04/20/24 08:00 04/20/24 08:00 04/20/24 08:00 04/20/24 09:47 04/20/24 08:00
I&O
04/19/24 04/20/24 04/21/24
06:59 06:59 06:59
Intake Total 1619
Balance 1619
Physical Exam
-
General: Well Developed and No Apparent Distress
HEENT: Normocephalic, Atraumatic and Moist Mucous Membranes
Respiratory: Clear to Auscultation
Cardiac: Regular Rhythm and S1/S2; Negative Murmur, Rub or Gallop
GI: Nondistended
Rectal: Deferred by Provider
Musculoskeletal: No Clubbing, No Cyanosis and Other (b/l LE edema; RUE amputation with ulcer covered with bandage)
Skin: Negative Rash
Neuro: Awake, Alert, Oriented and Nonfocal/Grossly Intact
Psych: Calm
[2024-04-20] MEDS: ZOFRAN 4 MG IV (14:40)
[2024-04-20 15:00] VITALS: BP 157/97
[2024-04-20] MEDS: LOVENOX 40 MG SC (18:19)
[2024-04-20] MEDS: MIRALAX PO (19:17)
[2024-04-20] MEDS: SUBUTEX SL (19:29)
[2024-04-20] MEDS: MELATONIN 5 MG PO (21:15)
[2024-04-20 22:57] VITALS: BP 121/68
[2024-04-21] MEDS: ZOFRAN 4 MG IV ×3 (05:04→20:38)
[2024-04-21] MEDS: ANESTHETIC LOZENGE 1 LOZENGE PO (05:08)
[2024-04-21] MEDS: MYLICON 80 MG PO ×2 (05:08→13:07)
[2024-04-21 06:00] VITALS: BMI 23.1
[2024-04-21 07:35] VITALS: BP 137/79
[2024-04-21] MEDS: DELTASONE 35 MG PO (07:57)
[2024-04-21] MEDS: LIDOCAINE 4% PATCH TOPICAL (07:58)
[2024-04-21] MEDS: MIRALAX PO ×2 (07:58→19:21)
[2024-04-21] MEDS: PROTONIX 40 MG PO (07:58)
[2024-04-21] MEDS: THIAMINE INJECTION 100 MG IV (07:58)
[2024-04-21] MEDS: SUBUTEX 8 MG SL ×2 (07:58→20:23)
[2024-04-21 15:35] VITALS: BP 155/97
--- NOTE | 2024-04-21 16:08 | W.PN.HOSP.TC ---
Today's Communication/Plan
-
Medically optimized pending discharge to [facility] facility
Assessment / Plan
Assessment / Plan
Impression.
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 Recently diagnosed Crohn's disease presented emergency room with
persistent abdominal pain and fever..
Persistent abdominal pain.
Partial small bowel obstruction secondary to Crohn's disease inflammatory stricture
Sepsis ruled out
Cirrhosis by records and imaging
Hepatitis C untreated.
Chronic normocytic anemia
Hypoalbuminemia
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
Acute urinary retention
Right foot/great toe ulcer
R upper arm amp with small dermal ulcer.
R ischial stage 2 small pressure injury.
Sacral/buttocks linear discolored stage 1 and 2 pressure injuries.
Plan:
Fever, leukocytosis, lactic acid elevation. Initial concern for clinical sepsis.
Chest x-ray with no infiltrates.
Blood cultures negative to date
With negative ID workup, antibiotics initially discontinued. (Now on Ancef for right great toe osteo - see below)
Right great toe ulcer with exposed bone. MRI concerning for distal tuft osteomyelitis.
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
-Continue antibiotics for 48-72 hours post op (ancef) - DCed on 04/11/24
-Heel WBAT to RLE is acceptable
-Dressings to remain clean, dry, intact
PT recommending DC to SNF
Presentation with persistent abdominal pain
Partial small bowel obstruction secondary to inflammation/Crohn's disease flareup
CT scan in ED with oral contrast only:
1. Significant dilation of the proximal and mid small bowel, measuring up to 6.5 cm in diameter, with relative decompression of the distal small bowel and colon. Findings are suggestive of at least partial small intestinal obstruction, although
well-defined transition point is not appreciated.
2. Small amount of free fluid within the abdomen and pelvis.
3. No evidence of pneumatosis intestinalis or extraluminal air.
4. Mild nodularity of the hepatic contour, a nonspecific finding which may be seen in the setting of cirrhosis. Diffuse fatty infiltration of the liver.
? Partial SBO versus ileus, versus SBP (although minimal amount of free fluid on CT scan imaging)
Small bowel obstruction suspected secondary to inflammatory stricture with known Crohn's disease.
-s/p NGT decompression now removed
-04/02 IV Solu-Medrol 20mg q 8 started; transitioned to prednisone 40mg PO QD on 04/06/24with plans for slow taper (5mg weekly decrease until seen by GI as outpatient)
Diet has been advanced to low residue.
Cirrhosis by history and imaging (CT scan with hepatic nodularity)
Untreated hepatitis C reported
Ultrasound with minimal ascites
Hyperammonemia on admission not correlated with hepatic encephalopathy
Stop lactulose (no clear evidence of hepatic encephalopathy also reacting with severe abdominal cramps). Assure daily BMs with MiraLAX
Hold Lasix and Aldactone. No clear evidence of cirrhosis with decompensation including ascites on imaging.
Substance abuse with history of IVDA.
Urine drug screen positive for multiple substances
Repeated urine drug screen on 04/07 cleared and positive only for Suboxone
Continue Suboxone sublingual-intermittently refusing it.
Acute urinary retention.
Trial of voiding/bladder scan initiated on 04/05
DVT prophylaxis�subcu Lovenox
Full code
Anticipated Discharge: 24 - 48 hours
Subjective/Interval History
-
Date of Service: April 21, 2024
Objective Data
-
Vital Signs:
Vital Signs
Temp Pulse Resp BP Pulse Ox
97.6 F 73 16 137/79 100
04/21/24 07:35 04/21/24 07:35 04/21/24 07:35 04/21/24 07:35 04/21/24 07:35
I&O
04/20/24 04/21/24 04/22/24
06:59 06:59 06:59
Intake Total 360 / 360
Balance 360 / 360
Physical Exam
-
General: Well Developed and No Apparent Distress
HEENT: Normocephalic, Atraumatic and Moist Mucous Membranes
Respiratory: Clear to Auscultation
Cardiac: Regular Rhythm and S1/S2; Negative Murmur, Rub or Gallop
GI: Nondistended
Rectal: Deferred by Provider
Musculoskeletal: No Clubbing, No Cyanosis and Other (b/l LE edema; RUE amputation with ulcer covered with bandage)
Skin: Negative Rash
Neuro: Awake, Alert, Oriented and Nonfocal/Grossly Intact
Psych: Calm
[2024-04-21] MEDS: LOVENOX 40 MG SC (16:52)
[2024-04-21] MEDS: MELATONIN 5 MG PO (20:38)
[2024-04-21 23:36] VITALS: BP 128/75
[2024-04-22] MEDS: MYLICON 80 MG PO (02:54)
[2024-04-22] MEDS: ZOFRAN 4 MG IV ×2 (05:07→16:54)
[2024-04-22 06:00] VITALS: BMI 23.2
[2024-04-22 07:48] VITALS: BP 123/71
[2024-04-22] MEDS: DELTASONE 35 MG PO (08:22)
[2024-04-22] MEDS: PROTONIX 40 MG PO (08:23)
[2024-04-22] MEDS: THIAMINE INJECTION 100 MG IV (08:23)
[2024-04-22] MEDS: LIDOCAINE 4% PATCH 1 PATCH TOPICAL (08:34)
[2024-04-22] MEDS: SUBUTEX 8 MG SL ×2 (08:35→20:24)
[2024-04-22] MEDS: MIRALAX PO ×2 (08:35→19:40)
--- NOTE | 2024-04-22 10:05 | CM ---
Addendum entered by Emy Julian 04/22/24 16:25:
phone call again to insurance and await call back. Patient updated re status.
Addendum entered by Emy Julian 04/22/24 14:42:
Per Ling [facility] is still in negotiations with insurance company and they do not have approval to take patient. No response from Insurance re Auth, updated clinicals sent to insurance earlier today. Patient would need denial of the auth to go
to SNF as MA pending. Ling is available over weekend if auth approved and will call CM with any updates, her phone number is [phone]. CM will call again to insurance co, update to physician.
Addendum entered by Emy Julian 04/22/24 14:30:
multiple calls to Jazmin at [facility], phone mailbox is full. CM tried again and reached [place], awaiting response from insurance co .
Original Note:
CM called to [facility] ([phone]) pending response. Faxed updated clinicals to . Provided [facility] admissions liaison Jazmin ([phone]) spoke to CM this am and stated that they are still awaiting
one time contract and negotiating rate. Patient would be accepted and pending auth facility would accept as MA pending if senior stock plan administrator approved. Jazmin to call back to CM this am. CM will continue to follow for discharge planning needs.
Plan; SNF
--- NOTE | 2024-04-22 12:15 | WOUNDNOTE ---
R GREAT TOE PARTIAL AMP SITE
--- NOTE | 2024-04-22 12:15 | WOUNDNOTE ---
R GREAT TOE PARTIAL AMP SITE
--- NOTE | 2024-04-22 12:16 | WOUNDNOTE ---
[facility] RN note: Patient's R great partial toe amp site dressing changed. Incision intact with sutures intact. No erythema. No drainage. Patient declined renzo wrap and declined Tubigrip on LLE and RUE. Sacral skin scarred and intact. R ischial stage 2
ulcer pink and small. Heels blanchable red. Protective foam dressings changed. Heels off bed with bariatric air chair cushion. Air chair cushion placed in recliner chair. Silicone border foam changed on sacrum and R ischium. Patient incontinent of
urine. Corinne care given and patient turned with help from [facility]. Diaper removed and placed an Ultrasorb underpad. Will sign off, call if needed.
[2024-04-22 15:46] VITALS: BP 150/96
--- NOTE | 2024-04-22 15:49 | W.PN.HOSP.TC ---
Today's Communication/Plan
-
Pending placement.
Continue oral steroid taper. Prednisone down to 30 mg today.
Assessment / Plan
Assessment / Plan
Impression.
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 Recently diagnosed Crohn's disease presented emergency room with
persistent abdominal pain and fever..
Persistent abdominal pain.
Partial small bowel obstruction secondary to Crohn's disease inflammatory stricture
Sepsis ruled out
Cirrhosis by records and imaging
Hepatitis C untreated.
Chronic normocytic anemia
Hypoalbuminemia
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
Acute urinary retention
Right foot/great toe ulcer
R upper arm amp with small dermal ulcer.
R ischial stage 2 small pressure injury.
Sacral/buttocks linear discolored stage 1 and 2 pressure injuries.
Plan:
Fever, leukocytosis, lactic acid elevation. Initial concern for clinical sepsis.
Chest x-ray with no infiltrates.
Blood cultures negative to date
With negative ID workup, antibiotics initially discontinued. (Now on Ancef for right great toe osteo - see below)
Right great toe ulcer with exposed bone. MRI concerning for distal tuft osteomyelitis.
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
-Continue antibiotics for 48-72 hours post op (ancef) - DCed on 04/11/24
-Heel WBAT to RLE is acceptable
-Dressings to remain clean, dry, intact
PT recommending DC to SNF
Presentation with persistent abdominal pain
Partial small bowel obstruction secondary to inflammation/Crohn's disease flareup
CT scan in ED with oral contrast only:
1. Significant dilation of the proximal and mid small bowel, measuring up to 6.5 cm in diameter, with relative decompression of the distal small bowel and colon. Findings are suggestive of at least partial small intestinal obstruction, although
well-defined transition point is not appreciated.
2. Small amount of free fluid within the abdomen and pelvis.
3. No evidence of pneumatosis intestinalis or extraluminal air.
4. Mild nodularity of the hepatic contour, a nonspecific finding which may be seen in the setting of cirrhosis. Diffuse fatty infiltration of the liver.
? Partial SBO versus ileus, versus SBP (although minimal amount of free fluid on CT scan imaging)
Small bowel obstruction suspected secondary to inflammatory stricture with known Crohn's disease.
-s/p NGT decompression now removed
-04/02 IV Solu-Medrol 20mg q 8 started; transitioned to prednisone 40mg PO QD on 04/06/24with plans for slow taper (5mg weekly decrease until seen by GI as outpatient)
Diet has been advanced to low residue.
Cirrhosis by history and imaging (CT scan with hepatic nodularity)
Untreated hepatitis C reported
Ultrasound with minimal ascites
Hyperammonemia on admission not correlated with hepatic encephalopathy
Stop lactulose (no clear evidence of hepatic encephalopathy also reacting with severe abdominal cramps). Assure daily BMs with MiraLAX
Hold Lasix and Aldactone. No clear evidence of cirrhosis with decompensation including ascites on imaging.
Substance abuse with history of IVDA.
Urine drug screen positive for multiple substances
Repeated urine drug screen on 04/07 cleared and positive only for Suboxone
Continue Suboxone sublingual-intermittently refusing it.
Acute urinary retention.
Trial of voiding/bladder scan initiated on 04/05
DVT prophylaxis�subcu Lovenox
Full code
Anticipated Discharge: 24 - 48 hours
Subjective/Interval History
-
Date of Service: April 22, 2024
Objective Data
-
Vital Signs:
Vital Signs
Temp Pulse Resp BP Pulse Ox
97.5 F 90 18 150/96 98
04/22/24 15:46 04/22/24 15:46 04/22/24 15:46 04/22/24 15:46 04/22/24 15:46
I&O
04/21/24 04/22/24 04/23/24
06:59 06:59 06:59
Intake Total 360 / 360 1739
Balance 360 / 360 1739
Physical Exam
-
General: Well Developed and No Apparent Distress
HEENT: Normocephalic, Atraumatic and Moist Mucous Membranes
Respiratory: Clear to Auscultation
Cardiac: Regular Rhythm and S1/S2; Negative Murmur, Rub or Gallop
GI: Nondistended
Rectal: Deferred by Provider
Musculoskeletal: No Clubbing, No Cyanosis and Other (b/l LE edema; RUE amputation with ulcer covered with bandage)
Skin: Negative Rash
Neuro: Awake, Alert, Oriented and Nonfocal/Grossly Intact
Psych: Calm
[2024-04-22] MEDS: LOVENOX 40 MG SC (16:54)
[2024-04-22] MEDS: MELATONIN 5 MG PO (22:11)
--- NOTE | 2024-04-22 23:02 | PTCARENOTE ---
Pt want to be wean off the Subutex. Pt requires monitoring when taking medication.
[2024-04-22 23:42] VITALS: BP 123/85
[2024-04-23 00:01] LABS: Urine Albumin Negative (Neg - Trace); Urine Bilirubin 1+ (Negative); Urine Character Slightly Cloudy (Clear); Urine Color Yellow; Urine Glucose Negative (Negative); Urine Ketone Negative (Negative); Urine Leukocyte Trace (Negative); Urine Nitrite Negative (Negative); Urine Occult Blood Negative (Negative); Urine Specific Gravity 1.015 (<1.030); Urine Urobilinogen 2+ (Neg - 1+)
[2024-04-23 00:19] LABS: Urine Red Blood Cell 0-2 /HPF (0-2)
[2024-04-23] MEDS: ZOFRAN 4 MG IV (03:46)
[2024-04-23 06:00] VITALS: BMI 22.5
[2024-04-23 07:35] VITALS: BP 142/90
[2024-04-23] MEDS: PROTONIX 40 MG PO (09:18)
[2024-04-23] MEDS: DELTASONE 30 MG PO (09:19)
[2024-04-23] MEDS: MIRALAX PO ×3 (09:19→21:11)
[2024-04-23] MEDS: SUBUTEX SL ×3 (09:19→21:11)
[2024-04-23] MEDS: LIDOCAINE 4% PATCH 1 PATCH TOPICAL (09:19)
[2024-04-23] MEDS: THIAMINE INJECTION 100 MG IV (09:20)
[2024-04-23] MEDS: FLUSH (NSS) 1 FLUSH IV ×2 (09:23→13:21)
--- NOTE | 2024-04-23 11:36 | W.PN.HOSP.TC ---
Today's Communication/Plan
-
see A/P
Assessment / Plan
Assessment / Plan
Impression.
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
persistent abdominal pain and fever.
Persistent abdominal pain.
Partial small bowel obstruction secondary to Crohn's disease inflammatory stricture
Sepsis ruled out
Cirrhosis by records and imaging
Hepatitis C untreated.
Chronic normocytic anemia
Hypoalbuminemia
Multisubstance abuse opiate use disorder with history of IVDA on Suboxone [employer].
Acute urinary retention
Right foot/great toe ulcer
R upper arm amp with small dermal ulcer.
R ischial stage 2 small pressure injury.
Sacral/buttocks linear discolored stage 1 and 2 pressure injuries.
Plan:
Fever, leukocytosis, lactic acid elevation. Initial concern for clinical sepsis.
Chest x-ray with no infiltrates.
Blood cultures negative to date
With negative ID workup, antibiotics discontinued.
Right great toe ulcer with exposed bone. MRI concerning for distal tuft osteomyelitis.
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
-s/p antibiotics for 48-72 hours post op (ancef)- DCed on 04/11/24
-Heel WBAT to RLE is acceptable
-Dressings to remain clean, dry, intact
PT recommending DC to SNF
Presentation with persistent abdominal pain
Partial small bowel obstruction secondary to inflammation/Crohn's disease flareup
CT scan in ED with oral contrast only:
1. Significant dilation of the proximal and mid small bowel, measuring up to 6.5 cm in diameter, with relative decompression of the distal small bowel and colon. Findings are suggestive of at least partial small intestinal obstruction, although
well-defined transition point is not appreciated.
2. Small amount of free fluid within the abdomen and pelvis.
3. No evidence of pneumatosis intestinalis or extraluminal air.
4. Mild nodularity of the hepatic contour, a nonspecific finding which may be seen in the setting of cirrhosis. Diffuse fatty infiltration of the liver.
? Partial SBO versus ileus, versus SBP (although minimal amount of free fluid on CT scan imaging)
Small bowel obstruction suspected secondary to inflammatory stricture with known Crohn's disease.
-s/p NGT decompression now removed
-04/02 IV Solu-Medrol 20mg q 8 started; transitioned to prednisone 40mg PO QD on 04/06/24 with plans for slow taper (5mg weekly decrease until seen by GI as outpatient)
Currently on Prednisone 30 mg daily
Diet has been advanced to low residue.
Cirrhosis by history and imaging (CT scan with hepatic nodularity)
Untreated hepatitis C reported
Ultrasound with minimal ascites
Hyperammonemia on admission not correlated with hepatic encephalopathy
Stopped lactulose (no clear evidence of hepatic encephalopathy also reacting with severe abdominal cramps). Assure daily BMs with MiraLAX
Hold Lasix and Aldactone. No clear evidence of cirrhosis with decompensation including ascites on imaging.
Substance abuse with history of IVDA.
Urine drug screen positive for multiple substances
Repeated urine drug screen on 04/07 cleared and positive only for Suboxone
Continue Suboxone sublingual- intermittently refusing it.
Acute urinary retention.
Trial of voiding/bladder scan initiated on 04/05
DVT prophylaxis�subcu Lovenox
Full code
DW RN
Anticipated Discharge: > 48 hours
Subjective/Interval History
-
Date of Service: April 23, 2024
Objective Data
-
Vital Signs:
Vital Signs
Temp Pulse Resp BP Pulse Ox
37.3 C 121 16 142/90 99
04/23/24 07:35 04/23/24 07:35 04/23/24 07:35 04/23/24 07:35 04/23/24 07:35
I&O
04/22/24 04/23/24 04/24/24
06:59 06:59 06:59
Intake Total 174 / 1740 840 / 840
Balance 1740 / 1740 840 / 840
Review of Systems
-
History Source: Patient
All other systems: Reviewed and negative
Physical Exam
-
General: Well Developed, No Apparent Distress, Comfortable and Appears Chronically Ill
HEENT: Normocephalic, Atraumatic and Moist Mucous Membranes
Respiratory: Non Labored Respirations; Negative Accessory Resp Muscle Use
Cardiac: Regular Rhythm and S1/S2; Negative Murmur, Rub or Gallop
GI: Nondistended
Rectal: Deferred by Provider
Musculoskeletal: No Clubbing, No Cyanosis and Other (RUE amputation with ulcer covered with bandage)
Skin: Negative Rash
Neuro: Awake, Alert and Nonfocal/Grossly Intact
Psych: Calm
--- NOTE | 2024-04-23 11:54 | PTCARENOTE ---
Pt refused to take Suboxone this am. Wasted pill with Gen HARGROVE. Will cont to monitor.
[2024-04-23 13:02] LABS: Glucose - Point of Care 88 mg/dl (70-99)
[2024-04-23] MEDS: NSS 500 IV (13:20)
[2024-04-23 15:25] VITALS: BP 158/102
--- NOTE | 2024-04-23 16:26 | PTCARENOTE ---
BP checked at 158/102 HR 120 Temp AX at 99.1. Pt still lethargic an sleeping. Gentle hydration infusing at 60ml/hr. Will cont to monitor.
[2024-04-23] MEDS: LOVENOX 40 MG SC (17:35)
--- NOTE | 2024-04-23 17:36 | W.PN.UPDATE ---
Update Note
Progress Note Update
Attempted to evaluate pt, was laying with eyes closed - attempted to talk but she would not open eyes. Suspect pt did wake up at some point as breathing pattern appeared to change, will attempt to engage again tomorrow.
--- NOTE | 2024-04-23 17:51 | PTCARENOTE ---
Attempted to engage in conversation with pt and assist with oral intake and ask pt if I could order some dinner for her. At this point she yelled at me and said a few curse words and declined any help at all. Pt closed her eyes and is resting in
bed with no further needs noted at present. Will cont to monitor.
[2024-04-23 20:01] LABS: Glucose - Point of Care 90 mg/dl (70-99)
[2024-04-23 20:23] VITALS: BP 126/94
--- NOTE | 2024-04-23 20:42 | W.PN.UPDATE ---
Addendum entered and electronically signed by OBEY Diaz 04/23/24 21:59:
Updated father about Miriam who is now sleeping soundly but with intermittent episodes forgetting what she wants to say or finishing a sentence. Discussed CT scan result. Will update again in the morning.
Addendum entered and electronically signed by OBEY Diaz 04/23/24 21:42:
CT head read by [facility] and was negative for acute intracranial hemorrhage and acute intracranial abnormality.
Original Note:
Update Note
Progress Note Update
Called to patient room due to what appears to be word finding difficulty. Speech starts off slow then she attempts her sentence but stops after a few words and says 'shit' as though she cannot recall what she intended to say..Her baseline from
reports is talking in complete sentences but today she had been less verbal. CT head ordered. able to answer basic questions about 'are you thirsty?' able to drink without difficulty. Denies pain. At time is yelling 'help me'. VSS.
[2024-04-23] MEDS: MELATONIN PO (21:11)
[2024-04-23 23:31] VITALS: BP 125/76
[2024-04-24 06:00] VITALS: BMI 22.6
[2024-04-24 08:00] VITALS: BP 139/104
[2024-04-24 08:28] LABS: Ammonia 106 umol/L (9-30)
[2024-04-24 08:35] LABS: ALT (SGPT) 44 U/L (0-35); AST (SGOT) 51 U/L (14-36); Albumin 1.6 g/dl (3.5-5.0); Alkaline Phosphatase 171 U/L (38-126); Blood Urea Nitrogen 15 mg/dl (7-17); Calcium 7.2 mg/dl (8.4-10.2); Carbon Dioxide 15 mmol/L (22-30); Chloride 114 mmol/L (98-107); Estimated Creatinine Clearance 100 ml/min; Glucose 102 mg/dl (70-99); Hematocrit 30.5 % (37.0-47.0); Hemoglobin 10.3 g/dL (12.0-16.0); Mean Corp Hgb Conc. 33.8 g/dL (33.0-37.0); Mean Corpuscular Hgb 28.6 pg (27.0-31.0); Mean Corpuscular Volume 84.7 fL (81.0-99.0); Mean Platelet Volume 9.8 fL (7.4-10.4); Platelet Count 313 10^3/uL (130-400); Red Cell Dist. Width 16.8 % (11.5-14.5); Sodium 139 mmol/L (135-145); Total Bilirubin 0.8 mg/dl (0.2-1.3); Total Protein 4.1 g/dl (6.3-8.2); White Blood Cell Count 11.9 10^3/uL (4.8-10.8); eGFR > 60.00
[2024-04-24] MEDS: LACTULOSE ENEMA 300 ML RECTAL (09:13)
[2024-04-24] MEDS: DELTASONE PO (09:56)
[2024-04-24] MEDS: PROTONIX PO (09:56)
[2024-04-24] MEDS: MIRALAX PO ×2 (09:56→20:25)
[2024-04-24] MEDS: SUBUTEX SL ×2 (09:57→20:25)
--- NOTE | 2024-04-24 09:59 | PTCARENOTE ---
patient received this AM. has trouble keeping her head upright, refused all the meds, could tolerate PO fluids. she vomited everything back out. when explaining her needs she still has trouble getting her thoughts verbalized. very anxious and
crying. saying to me 'I know my levels are high'. labs ordered and ammonia came back 106. lactulose enema given with large amounts of stool out. patient cleaned, positioned for comfort and is currently resting in bed
[2024-04-24] MEDS: LIDOCAINE 4% PATCH 1 PATCH TOPICAL (10:23)
[2024-04-24] MEDS: THIAMINE INJECTION 100 MG IV (10:25)
--- NOTE | 2024-04-24 10:52 | W.PN.HOSP.TC ---
Today's Communication/Plan
-
see A/P
Assessment / Plan
Assessment / Plan
Impression.
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
persistent abdominal pain and fever.
Persistent abdominal pain.
Partial small bowel obstruction secondary to Crohn's disease inflammatory stricture
Sepsis ruled out
Cirrhosis by records and imaging
Hepatitis C untreated.
Chronic normocytic anemia
Hypoalbuminemia
Multisubstance abuse opiate use disorder with history of IVDA on Suboxone [employer].
Acute urinary retention
Right foot/great toe ulcer
R upper arm amp with small dermal ulcer.
R ischial stage 2 small pressure injury.
Sacral/buttocks linear discolored stage 1 and 2 pressure injuries.
Plan:
Fever, leukocytosis, lactic acid elevation. Initial concern for clinical sepsis.
Chest x-ray with no infiltrates.
Blood cultures negative to date
With negative ID workup, antibiotics discontinued.
Right great toe ulcer with exposed bone. MRI concerning for distal tuft osteomyelitis.
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
-s/p antibiotics for 48-72 hours post op (ancef)- DCed on 04/11/24
-Heel WBAT to RLE is acceptable
-Dressings to remain clean, dry, intact
PT recommending DC to SNF
Presentation with persistent abdominal pain
Partial small bowel obstruction secondary to inflammation/Crohn's disease flareup
CT scan in ED with oral contrast only:
1. Significant dilation of the proximal and mid small bowel, measuring up to 6.5 cm in diameter, with relative decompression of the distal small bowel and colon. Findings are suggestive of at least partial small intestinal obstruction, although
well-defined transition point is not appreciated.
2. Small amount of free fluid within the abdomen and pelvis.
3. No evidence of pneumatosis intestinalis or extraluminal air.
4. Mild nodularity of the hepatic contour, a nonspecific finding which may be seen in the setting of cirrhosis. Diffuse fatty infiltration of the liver.
? Partial SBO versus ileus, versus SBP (although minimal amount of free fluid on CT scan imaging)
Small bowel obstruction suspected secondary to inflammatory stricture with known Crohn's disease.
-s/p NGT decompression now removed
-04/02 IV Solu-Medrol 20mg q 8 started; transitioned to prednisone 40mg PO QD on 04/06/24 with plans for slow taper (5mg weekly decrease until seen by GI as outpatient)
Currently on Prednisone 30 mg daily
Diet has been advanced to low residue.
Cirrhosis by history and imaging (CT scan with hepatic nodularity)
Untreated hepatitis C reported
Ultrasound with minimal ascites
Acute metabolic encephalopathy/delirium noted 04/23
CT head neg, ammonia level elevated at 106
Concern for hepatic encephalopathy
lactulose enema x1, restart lactulose at 20 mg BID and titrate BM 2-3 x per day
Cont to hold Lasix and Aldactone.
Check Abd US for ascites and if ascites present, consider paracentesis to r/o SBP
Hypokalemia
Replete IV
Check Mag level
Substance abuse with history of IVDA.
Admission Urine drug screen positive for multiple substances.
Repeated urine drug screen on 04/07 cleared and positive only for Suboxone
Continue Suboxone sublingual- intermittently refusing it.
Acute urinary retention.
Trial of voiding/bladder scan initiated on 04/05
DVT prophylaxis�subcu Lovenox
Full code
DW RN
DW father on the phone. Extensive discussion.
total time spent 51 min
Anticipated Discharge: > 48 hours
Subjective/Interval History
-
Date of Service: April 24, 2024
Objective Data
-
Labs:
Laboratory Results
04/24/24
08:07
WBC 11.9 H
Hgb 10.3 L
Hct 30.5 L
Plt Count 313
Sodium 139
Potassium 3.0 L
Chloride 114 H
Carbon Dioxide 15 L
BUN 15
Creatinine 0.5 L
Glucose 102 H
Calcium 7.2 L
Total Bilirubin 0.8
AST 51 H
ALT 44 H
Alkaline Phosphatase 171 H
Vital Signs:
Vital Signs
Temp Pulse Resp BP Pulse Ox
37.3 C 116 19 139/104 99
04/24/24 08:00 04/24/24 08:00 04/24/24 08:00 04/24/24 08:00 04/24/24 08:00
I&O
04/23/24 04/24/24 04/25/24
06:59 06:59 06:59
Intake Total 840 / 840 420 / 420
Balance 840 / 840 420 / 420
Review of Systems
-
Unable to obtain full review of systems at this time due to: Acuity
Physical Exam
-
General: Well Developed, No Apparent Distress, Comfortable and Appears Chronically Ill
HEENT: Normocephalic, Atraumatic and Moist Mucous Membranes
Respiratory: Non Labored Respirations; Negative Accessory Resp Muscle Use
Cardiac: Regular Rhythm and S1/S2; Negative Murmur, Rub or Gallop
GI: Nondistended
Rectal: Deferred by Provider
Musculoskeletal: No Clubbing, No Cyanosis, Edema, Right Lower Extrem, Edema, Left Lower Extrem and Other (RUE amputation with ulcer covered with bandage)
Skin: Negative Rash
Psych: Negative Intact Judgement/Insight
Data Reviewed
-
Diagnostic Radiology: Report Reviewed by me
Labs: Labs Reviewed by me
[2024-04-24] MEDS: KCL 270 MEQ IV (11:04)
[2024-04-24 11:24] LABS: Magnesium 1.7 mg/dl (1.6-2.3)
[2024-04-24 12:00] LABS: Glucose - Point of Care 91 mg/dl (70-99)
[2024-04-24] MEDS: ZOFRAN 4 MG IV ×2 (13:35→21:25)
--- NOTE | 2024-04-24 14:30 | PTCARENOTE ---
patient continuously yelling out and calling out, remains confused and unable to verbalize basic needs even with cues given by staff. multiple small BMs noted after enema. patient is currently receiving K rider via LUE PICC. positioned with LE
elevated off the bed. IV Zofran given for nausea. oral care and gurpreet care completed. Q2T for pressure wound prevention
[2024-04-24 16:00] VITALS: BP 124/94
[2024-04-24] MEDS: LOVENOX 40 MG SC (17:55)
[2024-04-24 19:08] LABS: Amphetamines Negative (Negative); Barbiturates Negative (Negative); Benzodiazepines Negative (Negative); Buprenorphine Positive (Negative); Cocaine Negative (Negative); Marijuana Negative (Negative); Methadone Negative (Negative); Methamphetamines Negative (Negative); Opiates Negative (Negative); Phencyclidine Negative (Negative); Tricyclic Antidepressants Negative (Negative)
[2024-04-24 19:26] LABS: Fentanyl, Urine Negative (Negative)
[2024-04-24] MEDS: DUPHALAC/CHRONULAC 20 GRAMS PO (20:18)
[2024-04-24] MEDS: MELATONIN PO (22:42)
[2024-04-24 23:19] VITALS: BP 109/82
--- NOTE | 2024-04-24 23:59 | PTCARENOTE ---
Pt continues to yell and call out. At times pt can verbalize what she wants and other times she is unable to fully express herself. Continues to refuse subutex. Gave pt lactulose but pt spit out part of the dose. Uncooperative with care. Pt vomited
x1-med with zofran. Will continue to monitor.
[2024-04-25 04:45] LABS: Hematocrit 27.4 % (37.0-47.0); Hemoglobin 9.2 g/dL (12.0-16.0); Mean Corp Hgb Conc. 33.6 g/dL (33.0-37.0); Mean Corpuscular Volume 83.3 fL (81.0-99.0); Mean Platelet Volume 9.8 fL (7.4-10.4); Platelet Count 263 10^3/uL (130-400); Red Blood Cell Count 3.29 10^6/uL (4.20-5.40); Red Cell Dist. Width 16.5 % (11.5-14.5); White Blood Cell Count 16.1 10^3/uL (4.8-10.8)
[2024-04-25 05:06] LABS: Ammonia 58 umol/L (9-30)
[2024-04-25 05:08] LABS: ALT (SGPT) 38 U/L (0-35); AST (SGOT) 29 U/L (14-36); Albumin 1.5 g/dl (3.5-5.0); Alkaline Phosphatase 162 U/L (38-126); Blood Urea Nitrogen 12 mg/dl (7-17); Calcium 7.2 mg/dl (8.4-10.2); Carbon Dioxide 15 mmol/L (22-30); Chloride 115 mmol/L (98-107); Estimated Creatinine Clearance 100 ml/min; Glucose 101 mg/dl (70-99); Magnesium 1.6 mg/dl (1.6-2.3); Sodium 140 mmol/L (135-145); Total Bilirubin 0.9 mg/dl (0.2-1.3); eGFR > 60.00
[2024-04-25 06:00] VITALS: BMI 22.7
[2024-04-25 07:35] VITALS: BP 140/81
[2024-04-25] MEDS: DELTASONE 30 MG PO (08:26)
[2024-04-25] MEDS: LIDOCAINE 4% PATCH TOPICAL ×2 (08:26→08:43)
[2024-04-25] MEDS: DUPHALAC/CHRONULAC 20 GRAMS PO ×2 (08:26→21:36)
[2024-04-25] MEDS: MIRALAX PO ×2 (08:26→19:49)
[2024-04-25] MEDS: THIAMINE INJECTION 100 MG IV (08:27)
[2024-04-25] MEDS: PROTONIX 40 MG PO (08:27)
[2024-04-25] MEDS: SUBUTEX 8 MG SL (08:29)
[2024-04-25] MEDS: ZOFRAN 4 MG IV ×2 (10:57→21:30)
[2024-04-25] MEDS: OMNIPAQUE 50 ML PO (13:02)
[2024-04-25] MEDS: NSS 1000 IV (13:04)
--- NOTE | 2024-04-25 13:19 | PTCARENOTE ---
Patient's dad transferred patient into chair by himself. Patient sustained skin tear to R dorsal foot during transfer, cleaned and dressing applied. Intermittent nausea all morning. Cannot tolerate oral potassium supplement or oral contrast. During
[place] aware.
--- NOTE | 2024-04-25 15:17 | CM ---
CM reviewed pt with Dr Garg- not medically ready for dc
Call with [facility] sourcing coordinator ([phone])
One contract paperwork has been completed by SNF and submitted to insurance for processing
CM attempted to call [facility] [phone] to follow up on pending auth request
Significant wait time 40 mins+ and not able to connect to live person
Ling/[facility] admissions plans to follow up with [facility] on contract processing and auth
Lengthy meeting with father/Celestine at nurse's station
He is not pleased with ratings of SNF but appreciative of dc planning efforts
He is aware of multiple barriers for SNF placement
Remains in agreement with plan
Discharge Disposition- [facility], auth and one time contract pending
--- NOTE | 2024-04-25 16:12 | W.PN.HOSP.TC ---
Today's Communication/Plan
-
Lactulose.
CT scan of the abdomen and pelvis.
Assessment / Plan
Assessment / Plan
Impression.
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
persistent abdominal pain and fever.
Persistent abdominal pain.
Partial small bowel obstruction secondary to Crohn's disease inflammatory stricture
Sepsis ruled out
Cirrhosis by records and imaging
Hepatitis C untreated.
Chronic normocytic anemia
Hypoalbuminemia
Multisubstance abuse opiate use disorder with history of IVDA on Suboxone [employer].
Acute urinary retention
Right foot/great toe ulcer
R upper arm amp with small dermal ulcer.
R ischial stage 2 small pressure injury.
Sacral/buttocks linear discolored stage 1 and 2 pressure injuries.
Plan:
Presentation with fever, leukocytosis, lactic acid elevation. Initial concern for clinical sepsis.
Chest x-ray with no infiltrates.
Blood cultures negative to date
With negative ID workup, antibiotics discontinued.
Right great toe ulcer with exposed bone. MRI concerning for distal tuft osteomyelitis.
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
-s/p antibiotics for 48-72 hours post op (ancef)- DCed on 04/11/24
-Heel WBAT to RLE is acceptable
-Dressings to remain clean, dry, intact
PT recommending DC to SNF
Presentation with persistent abdominal pain
Partial small bowel obstruction secondary to inflammation/Crohn's disease flareup
CT scan in ED with oral contrast only:
1. Significant dilation of the proximal and mid small bowel, measuring up to 6.5 cm in diameter, with relative decompression of the distal small bowel and colon. Findings are suggestive of at least partial small intestinal obstruction, although
well-defined transition point is not appreciated.
2. Small amount of free fluid within the abdomen and pelvis.
3. No evidence of pneumatosis intestinalis or extraluminal air.
4. Mild nodularity of the hepatic contour, a nonspecific finding which may be seen in the setting of cirrhosis. Diffuse fatty infiltration of the liver.
? Partial SBO versus ileus, versus SBP (although minimal amount of free fluid on CT scan imaging)
Small bowel obstruction suspected secondary to inflammatory stricture with known Crohn's disease.
-s/p NGT decompression now removed
-04/02 IV Solu-Medrol 20mg q 8 started; transitioned to prednisone 40mg PO QD on 04/06/24 with plans for slow taper (5mg weekly decrease until seen by GI as outpatient)
Currently on Prednisone 30 mg daily
Diet has been advanced to low residue.
Cirrhosis by history and imaging (CT scan with hepatic nodularity)
Untreated hepatitis C reported
Ultrasound with minimal ascites
Acute metabolic encephalopathy/delirium noted 04/23
CT head neg, ammonia level elevated at 106
Concern for hepatic encephalopathy
Noted with leukocytosis at 16
Acute metabolic acidosis normal gap possibly due to GI losses with initiated lactulose
Ultrasound of the abdomen with minimal ascitic fluid, not palpable
Check CT scan of the abdomen pelvis
Continue lactulose dose increased to 20 mg 3 times daily titrate 2-3 BMs daily
Cont to hold Lasix and Aldactone.
Hypokalemia
Replete IV
Check Mag level
Substance abuse with history of IVDA.
Admission Urine drug screen positive for multiple substances.
Repeated urine drug screen on 04/07 cleared and positive only for Suboxone
Continue Suboxone sublingual- intermittently refusing it.
Patient declined Suboxone on multiple occasions
Persistent nausea and vomiting and altered mental status could be also attributed to Suboxone withdrawal
Encourage to continue Suboxone.
Acute urinary retention.
Trial of voiding/bladder scan initiated on 04/05
DVT prophylaxis�subcu Lovenox
Full code
DW RN
DW father on the phone. Extensive discussion.
total time spent 51 min
Anticipated Discharge: > 48 hours
Subjective/Interval History
-
Date of Service: April 25, 2024
Objective Data
-
Labs:
Laboratory Results
04/25/24
04:33
WBC 16.1 H
Hgb 9.2 L
Hct 27.4 L
Plt Count 263
Sodium 140
Potassium 3.0 L
Chloride 115 H
Carbon Dioxide 15 L
BUN 12
Creatinine 0.5 L
Glucose 101 H
Calcium 7.2 L
Total Bilirubin 0.9
AST 29
ALT 38 H
Alkaline Phosphatase 162 H
Vital Signs:
Vital Signs
Temp Pulse Resp BP Pulse Ox
97.9 F 101 18 140/81 98
04/25/24 07:35 04/25/24 07:35 04/25/24 07:35 04/25/24 07:35 04/25/24 07:35
I&O
04/24/24 04/25/24 04/26/24
06:59 06:59 06:59
Intake Total 420 / 420
Balance 420 / 420
Physical Exam
-
General: Well Developed, No Apparent Distress, Comfortable and Appears Chronically Ill
HEENT: Normocephalic, Atraumatic and Moist Mucous Membranes
Respiratory: Non Labored Respirations; Negative Accessory Resp Muscle Use
Cardiac: Regular Rhythm and S1/S2; Negative Murmur, Rub or Gallop
GI: Nondistended
Rectal: Deferred by Provider
Musculoskeletal: No Clubbing, No Cyanosis, Edema, Right Lower Extrem, Edema, Left Lower Extrem and Other (RUE amputation with ulcer covered with bandage)
Skin: Negative Rash
Neuro: Awake and Alert; Negative Oriented (Disoriented)
Psych: Negative Intact Judgement/Insight
[2024-04-25] MEDS: KCL 270 MEQ IV (16:17)
[2024-04-25] MEDS: LOVENOX 40 MG SC (16:53)
--- NOTE | 2024-04-25 17:48 | W.PN.UPDATE ---
Update Note
Progress Note Update
CT of the abdomen and pelvis with IV contrast findings consistent with
1. Interval increase in severe submucosal edema and circumferential wall thickening throughout nearly the entire colon consistent with a SEVERE ACUTE PANCOLITIS (possibly C. Difficile Colitis).
2. Severe distention of small bowel loops with fluid and air in the central anterior abdomen and pelvis. Diagnostic possibilities are (1) an acute gastroenteritis, (2) an adynamic ileus, or (3) a partial small bowel obstruction.
3. Small volume of abdominal and pelvic ascites.
4. Mild smooth peritoneal thickening and hyperenhancement in the pelvis suggesting ACUTE PERITONITIS.
5. SEVERE DIFFUSE HEPATIC STEATOSIS with moderate atrophy of the lateral segment of the left lobe the liver and multiple regions of hyperenhancement in the subcapsular regions of the liver (mostly in the lateral segment of the left lobe) which are
probably regions of perfusion abnormality or focal fatty sparing.
6. 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
Patient remains mildly encephalopathic while on increased dose of lactulose.
Exam with mildly distended, although nontender abdomen.
Reports 1 small mucousy BM today.
Repeat CBC/BMP/lactic acid
Stool for C. difficile and stool cultures
N.p.o. except meds.
Empiric antibiotics: Zosyn/IV metronidazole/oral Vanco
If recurrent emesis will need NG tube
Transition back to IV steroids
Reconsult GI/surgery
[2024-04-25] MEDS: ZOSYN 50 IV ×2 (18:21→23:45)
[2024-04-25 18:36] LABS: % Basophils 0.2 % (0-2); % Immature Granulocytes 0.6 % (0-0.5); % Lymphocytes 14.1 % (20.5-51.1); % Monocytes 6.4 % (1.7-9.3); % Neutrophils 78.7 % (42.2-75.2); Absolute Immature Granulocytes 0.1 10^3/uL (0-0.05); Absolute Lymphocytes 1.8 10^3/uL (1.2-3.4); Absolute Monocytes 0.8 10^3/uL (0.1-0.6); Absolute Neutrophils 9.8 10^3/uL (1.4-6.5); Hematocrit 29.8 % (37.0-47.0); Mean Corp Hgb Conc. 33.6 g/dL (33.0-37.0); Mean Corpuscular Hgb 28.5 pg (27.0-31.0); Mean Corpuscular Volume 84.9 fL (81.0-99.0); Mean Platelet Volume 9.8 fL (7.4-10.4); Nucleated Red Blood Cells % 0.2 %; Platelet Count 257 10^3/uL (130-400); Red Blood Cell Count 3.51 10^6/uL (4.20-5.40); Red Cell Dist. Width 17.2 % (11.5-14.5); White Blood Cell Count 12.4 10^3/uL (4.8-10.8)
[2024-04-25 18:52] LABS: Lactic Acid 1.7 mmol/L (0.7-2.0)
[2024-04-25 18:56] LABS: ALT (SGPT) 41 U/L (0-35); AST (SGOT) 32 U/L (14-36); Albumin 1.7 g/dl (3.5-5.0); Alkaline Phosphatase 184 U/L (38-126); Blood Urea Nitrogen 12 mg/dl (7-17); Calcium 7.4 mg/dl (8.4-10.2); Carbon Dioxide 16 mmol/L (22-30); Chloride 114 mmol/L (98-107); Estimated Creatinine Clearance 100 ml/min; Glucose 105 mg/dl (70-99); Potassium 3.3 mmol/L (3.5-5.1); Sodium 137 mmol/L (135-145); Total Bilirubin 1.1 mg/dl (0.2-1.3); Total Protein 4.2 g/dl (6.3-8.2); eGFR > 60.00
[2024-04-25] MEDS: FLAGYL 500 MG 100 IV (19:48)
[2024-04-25] MEDS: SUBUTEX SL ×2 (20:02→20:17)
[2024-04-25] MEDS: FIRVANQ PO ×2 (20:02→20:24)
--- NOTE | 2024-04-25 20:29 | PTCARENOTE ---
Addendum entered by Maite Valentin RN 04/25/24 21:56:
Pt agreeable to take her 2000 dose of Lactulose and is requesting her melatonin.
Original Note:
Pt ordered NPO status without sips of clears or ice chips. In pt's current state, she is forgetful; educated pt on current and newly ordered medications and their purpose. Pt refusing PM medications (which are liquid and SL) without something to
drink because 'they taste nasty'. Reinforced importance of medication regimen and purpose, pt adamantly refusing without a cup of water to drink.
[2024-04-25] MEDS: DUPHALAC/CHRONULAC PO (20:32)
[2024-04-25] MEDS: MELATONIN 5 MG PO (21:36)
[2024-04-25] MEDS: SOLU-MEDROL PF 40 MG IV (21:45)
[2024-04-25 23:27] VITALS: BP 121/79
[2024-04-25] MEDS: FIRVANQ 125 MG PO (23:45)
[2024-04-26] MEDS: FLAGYL 500 MG 100 IV ×3 (03:45→21:18)
[2024-04-26] MEDS: ZOFRAN 4 MG IV ×3 (03:53→21:49)
[2024-04-26 05:02] VITALS: BMI 23.4
[2024-04-26] MEDS: SOLU-MEDROL PF 40 MG IV ×3 (05:31→21:18)
[2024-04-26] MEDS: ZOSYN 50 IV ×4 (05:31→23:49)
[2024-04-26] MEDS: ANESTHETIC LOZENGE 1 LOZENGE PO (05:31)
[2024-04-26] MEDS: FIRVANQ 125 MG PO ×4 (05:36→23:49)
[2024-04-26 05:47] LABS: % Basophils 0.1 % (0-2); % Immature Granulocytes 0.4 % (0-0.5); % Monocytes 5.2 % (1.7-9.3); % Neutrophils 75.3 % (42.2-75.2); Absolute Lymphocytes 1.8 10^3/uL (1.2-3.4); Absolute Monocytes 0.5 10^3/uL (0.1-0.6); Hematocrit 29.1 % (37.0-47.0); Hemoglobin 9.5 g/dL (12.0-16.0); Mean Corp Hgb Conc. 32.6 g/dL (33.0-37.0); Mean Corpuscular Hgb 28.4 pg (27.0-31.0); Mean Corpuscular Volume 86.9 fL (81.0-99.0); Mean Platelet Volume 10.1 fL (7.4-10.4); Nucleated Red Blood Cells % 0.3 %; Platelet Count 222 10^3/uL (130-400); Red Blood Cell Count 3.35 10^6/uL (4.20-5.40); White Blood Cell Count 9.3 10^3/uL (4.8-10.8)
[2024-04-26 06:11] LABS: Ammonia 51 umol/L (9-30)
[2024-04-26 06:20] LABS: ALT (SGPT) 39 U/L (0-35); AST (SGOT) 32 U/L (14-36); Albumin 1.7 g/dl (3.5-5.0); Alkaline Phosphatase 180 U/L (38-126); Blood Urea Nitrogen 11 mg/dl (7-17); Calcium 7.3 mg/dl (8.4-10.2); Carbon Dioxide 12 mmol/L (22-30); Chloride 118 mmol/L (98-107); Estimated Creatinine Clearance 100 ml/min; Glucose 106 mg/dl (70-99); Potassium 3.7 mmol/L (3.5-5.1); Sodium 140 mmol/L (135-145); Total Bilirubin 1.1 mg/dl (0.2-1.3); Total Protein 4.3 g/dl (6.3-8.2); eGFR > 60.00
[2024-04-26] MEDS: SODIUM BICARBONATE 50 MEQ IV (06:46)
--- NOTE | 2024-04-26 08:16 | W.PN.GI.CBS2 ---
Addendum entered and electronically signed by Thalia Coburn MD 04/26/24 14:30:
I saw and examined the patient.
The VICE PRESIDENT BIOSTATISTICS's note was reviewed and I agree with the note.
GI was reconsulted because of abnormal CT showing severe pancolitis/severe distention of small bowel loops with fluid and air�adynamic ileus versus small bowel obstruction. Patient was evaluated by GI team in the past (newly diagnosed Crohn's
disease/partial small bowel obstruction/cirrhosis/hep C) . Records reviewed- Patient continues to to complain of abdominal discomfort with nausea. No vomiting
plan
Surgical note reviewed. Agree with upper GI series with small bowel follow-through
If vomiting will recommend NG tube
Continue IV steroid for now. If no obstruction okay to switch back to oral steroid
Continue IV antibiotics
Prior GI records not available to review
Patient requires outpatient GI [id number] management/hep C treatment
will follow
Original Note:
Today's Communication / Plan
-
Pt with multiple issues now abnormal CT after noted with nausea and increased abdominal pain
appreciate surgical input
for SBFT
lactate 1.7 last pm repeat pending
if recurrent vomiting consider NGT decompression
changed back to IV steroids
PO vanco with concern for c-diff per CT-- cx pending
cont IV abx
NPO
cont lactulose if needed may need to change to rectally if unable to take PO
Pt wit some downward trend of CRP last 28.1 04/11 will repeat now
again requested [facility] records as note received prior
OP follow up as due to a [place] 05/19
will need eventual hep C treatment diagnosed 14 years ago
cont PPI with steroid use
pt with cirrhosis repeat INR and labs in Am to recalculate meld
reviewed with Dr. Coburn
Assessment / Plan
-
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
the ED from rehab facility for abdominal pain and distention. Patient was previously living in [place], with recent admission at [facility] in November 2023 for similar abdominal pain and states she had both endoscopy and colonoscopy and was
diagnosed with Crohn's disease. She does have a prior history of small bowel obstruction, but denies any prior abdominal surgeries. Reportedly, SBO had previously improved with NGT and resolved without surgical intervention. Patient denies any
diarrhea. She never followed up with GI. She has never been on any treatment for Crohn's, other than prednisone. She also has known Hepatitis C, never treated. She was seen earlier in admission with concern for sepsis with leukocytosis, elevated
lactate and abdominal pain concern for SBO/partial obstruction. She had been treated with steroid with weaning during admission. She has also noted with HE with lactulose therapy. Asked to see as she had repeat CT with noted increased edema
and wall thickening with severe pratt colitis. she has had multiple other issues during admission including HE/metabolic encephalopathy/delirium, toe ulceration with exposed bone and concern for osteomyelitis.
04/25/24 CT Abd/pelvis W Iv Cont
1. Interval increase in severe submucosal edema and circumferential wall thickening throughout nearly the entire colon consistent with a SEVERE ACUTE PANCOLITIS (possibly C. Difficile Colitis).
2. Severe distention of small bowel loops with fluid and air in the central anterior abdomen and pelvis. Diagnostic possibilities are (1) an acute gastroenteritis, (2) an adynamic ileus, or (3) a partial small bowel obstruction.
3. Small volume of abdominal and pelvic ascites.
4. Mild smooth peritoneal thickening and hyperenhancement in the pelvis suggesting ACUTE PERITONITIS.
5. SEVERE DIFFUSE HEPATIC STEATOSIS with moderate atrophy of the lateral segment of the left lobe the liver and multiple regions of hyperenhancement in the subcapsular regions of the liver (mostly in the lateral segment of the left lobe) which are
probably regions of perfusion abnormality or focal fatty sparing.
6. 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
-abnormal CT with severe Submucosal edema with severe acute pancolitis, concern for gastroenteritis/ileus/PSBO, peritonitis
-prior noted concern for SBO/partial on admission s/p NGT
-acidosis
-hep C - untreated, severe diffuse hepatic steatosis- chronic ALT elevation
-chronic splenic infarct per CT
-change in mental status with hx HE elevated ammonia
-recent concern for Crohn's disease on recent steroids, fecal kristina >3000
-osteomyelitis- with chronic alk phos elevation
-leukocytosis- improving
-anemia
-tachycardia
-coagulopathy
- hypoalbuminemia
-+tox screen on admission
other med problems:
-hx IVDA
--bipolar
-RUQ amputation
-GERD
PLAN:
Pt with multiple issues now abnormal CT after noted with nausea and increased abdominal pain
appreciate surgical input
for SBFT
lactate 1.7 last pm repeat pending
if recurrent vomiting consider NGT decompression
changed back to IV steroids
PO vanco with concern for c-diff per CT-- cx pending
cont IV abx
NPO
cont lactulose if needed may need to change to rectally if unable to take PO
Pt wit some downward trend of CRP last 28.1 04/11 will repeat now
again requested [facility] as note received prior
OP follow up as due to a wales[place] 05/19
will need eventual hep C treatment diagnosed 14 years ago
cont PPI with steroid use
pt with cirrhosis repeat INR and labs in Am to recalculate meld
reviewed with Dr. Coburn
Subjective
Subjective
Date of Service: April 26, 2024
04/25 brown stool, NPO, per nursing staff + nausea without vomiting
Objective
Data Reviewed
Laboratory Data:
Laboratory Results
04/26/24 05:27
Laboratory Results
PT 17.1 Sec (11.4-14.6) H 04/01/24 07:38
INR 1.42 04/01/24 07:38
Phosphorus 2.6 mg/dl (2.5-4.5) 04/05/24 04:49
Magnesium 1.6 mg/dl (1.6-2.3) 04/25/24 04:33
Total Bilirubin 1.1 mg/dl (0.2-1.3) 04/26/24 05:28
AST 32 U/L (14-36) 04/26/24 05:28
ALT 39 U/L (0-35) H 04/26/24 05:28
Alkaline Phosphatase 180 U/L (38-126) H 04/26/24 05:28
Lipase 18 U/L (23-300) L 03/31/24 22:16
Vital Signs and I&O:
Vital Signs
Temp Pulse Resp BP Pulse Ox
98.4 F 118 18 121/79 100
04/25/24 23:27 04/25/24 23:27 04/25/24 23:27 04/25/24 23:27 04/26/24 01:46
I&O
04/25/24 04/26/24 04/27/24
06:59 06:59 06:59
Intake Total 1200 / 1200
Balance 1200 / 1200
Physical Exam
Physical Exam
HEENT: Anicteric and Moist mucous membranes
Cardiology: Normal Sinus Rhythm
Pulmonary: Clear
GI: Soft, Distended (mild ) and Tender (mild upper abdominal tenderness )
Extremities: Edema and Other (multiple scarring LE with dressing on feet )
Neuro: Non Focal
--- NOTE | 2024-04-26 08:19 | W.PN.GS2 ---
Addendum entered and electronically signed by Dario Unger MD 04/26/24 13:13:
Patient refused to drink contrast for UGI due to preference. Limited ability to work-up and manage patient. Options for trial of clears versus NGT placement and contrast admin.
-- Clears ordered if further issues with abdominal pain or nausea place NGT
Original Note:
Today's Communication / Plan
-
-- SBFT
-- Continue medical management per GI
Assessment / Plan
-
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
nausea and vomiting and low grade temps
Recent admission at [facility] where she reportedly had EGD/colonoscopy
Recently left SNF ([facility]) to live with family
Difficult to discern the exact cause for her symptoms. Unlikely to be an adhesive SBO given lack of surgical history and age. No evidence of a hernia on exam or CT scan. Unlikely to be a mass given age. More likely to be related to IBD or drug
related. Likely component of dysmotility related to drugs as well.
Recurrent issues with nausea and abdominal discomfort over the past 24-[address] with IV (no PO) contrast, which demonstrates continued SB dilation, diffuse wall thickening and edema, ascites, and severe fatty liver disease.
Continues to pass flatus stools. Tachycardia, afebrile, WBC normalized.
Prior imaging reviewed; no PO contrast studies obtained.
Plan:
-- SBFT
-- Continue medical management per GI
Subjective Data
-
Date of Service: April 26, 2024
Denies current nausea, reports from nursing. Zofran overnight. Denies worsening abdominal pain. Reports passing flatus and loose stools.
Objective Data
-
Intake and Output
04/25/24 04/26/24 04/27/24
06:59 06:59 06:59
Intake Total 1200 / 1200
Balance 1200 / 1200
Intake:
Oral fluids 1200 / 1200
Other:
How many times incontinent 2 4
MODERATE amount urine
How many times incontinent 2 1
SATURATED amount urine
Number of unmeasured liquid
stools
Rectum 1 2
Vital Signs
Temp Pulse Resp BP Pulse Ox
98.4 F 118 18 121/79 100
04/25/24 23:27 04/25/24 23:27 04/25/24 23:27 04/25/24 23:27 04/26/24 01:46
Lab Results
04/26/24 05:27
Calcium 7.3 mg/dl (8.4-10.2) L 04/26/24 05:28
Phosphorus 2.6 mg/dl (2.5-4.5) 04/05/24 04:49
Magnesium 1.6 mg/dl (1.6-2.3) 04/25/24 04:33
Total Bilirubin 1.1 mg/dl (0.2-1.3) 04/26/24 05:28
AST 32 U/L (14-36) 04/26/24 05:28
ALT 39 U/L (0-35) H 04/26/24 05:28
Alkaline Phosphatase 180 U/L (38-126) H 04/26/24 05:28
Total Protein 4.3 g/dl (6.3-8.2) L 04/26/24 05:28
Albumin 1.7 g/dl (3.5-5.0) L 04/26/24 05:28
Physical Exam
-
Gen: NAD
Abd: soft tender diffusely, moderate distension, non-peritoneal (no rebound or guarding)
[2024-04-26 08:20] VITALS: BP 134/76
[2024-04-26] MEDS: SODIUM BICARBONATE 1150 MEQ IV (09:33)
[2024-04-26] MEDS: LIDOCAINE 4% PATCH 1 PATCH TOPICAL (09:36)
[2024-04-26] MEDS: SUBUTEX 8 MG SL (09:37)
[2024-04-26] MEDS: PROTONIX 40 MG PO (09:37)
[2024-04-26] MEDS: THIAMINE INJECTION 100 MG IV (09:37)
[2024-04-26] MEDS: MIRALAX 17 GRAMS PO ×2 (09:37→21:21)
[2024-04-26] MEDS: DUPHALAC/CHRONULAC 20 GRAMS PO (09:38)
[2024-04-26 10:36] LABS: Erythrocyte Sed Rate 10 mm/hour (0-20)
[2024-04-26 11:15] LABS: Lactic Acid 1.7 mmol/L (0.7-2.0)
[2024-04-26 12:53] LABS: Blood Urea Nitrogen 12 mg/dl (7-17); Calcium 7.2 mg/dl (8.4-10.2); Carbon Dioxide 14 mmol/L (22-30); Chloride 117 mmol/L (98-107); Estimated Creatinine Clearance 100 ml/min; Glucose 121 mg/dl (70-99); Potassium 3.5 mmol/L (3.5-5.1); Sodium 142 mmol/L (135-145); eGFR > 60.00
[2024-04-26] MEDS: NSS IV ×2 (13:13)
--- NOTE | 2024-04-26 14:54 | CM ---
Reviewed the chart notes and spoke with the patient at the bedside. Updated patient on contract with [facility] has been accepted. Patient not ready for discharge today. Spoke with Cassy with [facility] and requested a list of
in-network facilities. Additional referrals sent. CM continues to be available to patient/family and is monitoring medical plan for needs at discharge.
Plan: Discharge to SNF/rehab for short term to residential placement.
--- NOTE | 2024-04-26 15:02 | W.PN.HOSP.TC ---
Today's Communication/Plan
-
Clear liquid diet
Empiric antibiotics
IV fluids with bicarbonate.
IV corticosteroids.
Lactulose.
Attempt to taper Suboxone.
May resume Seroquel. Hold Neurontin.
Assessment / Plan
Assessment / Plan
Impression.
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
persistent abdominal pain and fever.
Persistent abdominal pain.
Partial small bowel obstruction secondary to Crohn's disease inflammatory stricture
Sepsis ruled out
Cirrhosis by records and imaging
Hepatitis C untreated.
Chronic normocytic anemia
Hypoalbuminemia
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
Acute urinary retention
Right foot/great toe ulcer
R upper arm amp with small dermal ulcer.
R ischial stage 2 small pressure injury.
Sacral/buttocks linear discolored stage 1 and 2 pressure injuries.
Plan:
Presentation with abdominal pain, fever, leukocytosis, lactic acid elevation. Initial concern for clinical sepsis.
CT scan in ED with oral contrast only:
1. Significant dilation of the proximal and mid small bowel, measuring up to 6.5 cm in diameter, with relative decompression of the distal small bowel and colon. Findings are suggestive of at least partial small intestinal obstruction, although
well-defined transition point is not appreciated.
Managed with NG tube for decompression, empiric antibiotics.
With clinical inclination of inflammatory process possibly Crohn's flareup initiated on systemic steroids/Solu-Medrol with transition to prednisone with improvement.
Diet has been advanced to low residue, although patient had been not compliant with diet restrictions.
On 04/25 patient developed abdominal pain, recurrent nausea and vomiting, elevated white count. She has loose stools while on lactulose.
Normal anion gap metabolic acidosis with lactic acid at 1.7 likely indicative of GI losses and less likely ischemia
Repeated CT scan on 04/25 with IV contrast only:
1. Interval increase in severe submucosal edema and circumferential wall thickening throughout nearly the entire colon consistent with a SEVERE ACUTE PANCOLITIS (possibly C. Difficile Colitis).
2. Severe distention of small bowel loops with fluid and air in the central anterior abdomen and pelvis. Diagnostic possibilities are (1) an acute gastroenteritis, (2) an adynamic ileus, or (3) a partial small bowel obstruction.
3. Small volume of abdominal and pelvic ascites.
4. Mild smooth peritoneal thickening and hyperenhancement in the pelvis suggesting ACUTE PERITONITIS.
5. SEVERE DIFFUSE HEPATIC STEATOSIS with moderate atrophy of the lateral segment of the left lobe the liver and multiple regions of hyperenhancement in the subcapsular regions of the liver (mostly in the lateral segment of the left lobe) which are
probably regions of perfusion abnormality or focal fatty sparing.
6. 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
On 04/26 patient declined small bowel follow-through refusing taking contrast.
Initiated on empiric antibiotics including Zosyn, metronidazole, oral vancomycin for broad coverage intra-abdominal pathogens and C. difficile
Transition back to IV Solu-Medrol
Overall improved with resolution of nausea and abdominal pain
Continue empiric antibiotics
Continue IV steroids
Continue alkalinized IV fluids.
Altered mental status likely multifactorial and due to hepatic encephalopathy.
Ammonia level elevated up to 108.
Cirrhosis by imaging.
Untreated hepatitis C.
Ultrasound of the abdomen with minimal nonpalpable ascites.
CT scan imaging consistent with cirrhotic liver.
Lactulose resumed. Titrate to 2-3 bowel movements a day
Hold diuretics for now.
Right great toe ulcer with exposed bone. MRI concerning for distal tuft osteomyelitis.
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
-s/p antibiotics for 48-72 hours post op (ancef)- DCed on 04/11/24
-Heel WBAT to RLE is acceptable
-Dressings to remain clean, dry, intact
PT recommending DC to SNF
Substance abuse with history of IVDA.
Admission Urine drug screen positive for multiple substances.
Repeated urine drug screen on 04/07 cleared and positive only for Suboxone
Continue Suboxone sublingual- intermittently refusing it.
Patient declined Suboxone on multiple occasions
Discussed with psychiatry.
Plan is to wean off Suboxone slowly.
Currently holding Seroquel and Neurontin given hepatic encephalopathy.
Acute urinary retention.
Trial of voiding/bladder scan initiated on 04/05
DVT prophylaxis�subcu Lovenox
Full code
DW RN
DW father on the phone. Extensive discussion.
Anticipated Discharge: 24 - 48 hours
Subjective/Interval History
-
Date of Service: April 26, 2024
Objective Data
-
Labs:
Laboratory Results
04/26/24 04/26/24 04/26/24
05:27 05:28 10:57
WBC 9.3
Hgb 9.5 L
Hct 29.1 L
Plt Count 222
Sodium 140 142
Potassium 3.7 3.5
Chloride 118 H 117 H
Carbon Dioxide 12 L* 14 L*
BUN 11 12
Creatinine 0.5 L 0.5 L
Glucose 106 H 121 H
Calcium 7.3 L 7.2 L
Total Bilirubin 1.1
AST 32
ALT 39 H
Alkaline Phosphatase 180 H
Vital Signs:
Vital Signs
Temp Pulse Resp BP Pulse Ox
97.6 F 85 18 134/76 100
04/26/24 08:20 04/26/24 08:20 04/26/24 08:20 04/26/24 08:20 04/26/24 08:20
I&O
04/25/24 04/26/24 04/27/24
06:59 06:59 06:59
Intake Total 1200 / 1200
Balance 1200 / 1200
Physical Exam
-
General: Well Developed, No Apparent Distress, Comfortable and Appears Chronically Ill
HEENT: Normocephalic, Atraumatic and Moist Mucous Membranes
Respiratory: Non Labored Respirations; Negative Accessory Resp Muscle Use
Cardiac: Regular Rhythm and S1/S2; Negative Murmur, Rub or Gallop
GI: Other (Mild distention with hypoactive bowel sounds)
Rectal: Deferred by Provider
Musculoskeletal: No Clubbing, No Cyanosis, Edema, Right Lower Extrem, Edema, Left Lower Extrem and Other (RUE amputation with ulcer covered with bandage)
Skin: Negative Rash
Neuro: Awake and Alert; Negative Oriented (Disoriented)
Psych: Negative Intact Judgement/Insight
--- NOTE | 2024-04-26 15:59 | W.PN.UPDATE ---
Update Note
Progress Note Update
Pt seen, chart reviewed, discussed with Dr Garg. Pt resting in bed watching TV and eating clear liquid diet. Pt alert, oriented, answering questions. She denies being on regular Suboxone treatment, asks for Subutex to be tapered down. Pt has
refused the HS dose a number of times, including the past 3 nights. Reviewed other psych medications, pt would like to resume Seroquel 25 mg BID (1pm and HS) and Remeron 7.5 mg HS. She reports hx of psych admissions/302's for suicide attempt in
the past, was at [facility] in [facility] past, denies recent admission. States she had a psychiatrist in [place], does not have one in [place], does not have a therapist, reports she has been in and out of medical hospitals a lot recently. Pt's affect is
appropriate, mood stable.
Imp: Opioid Use d/o, severe, hx of IVDA drug use, with Rt upper extremity amputation due to complications
Unspecified anxiety, stable
TME, improving
Rec: Will taper Subutex stepwise, decreasing to 6 mg daily (stop HS dose)
will resume Remeron 7.5 mg HS; Seroquel on hold due to encephalopathy
will follow
[2024-04-26 16:24] VITALS: BP 158/92
[2024-04-26] MEDS: LOVENOX 40 MG SC (17:13)
[2024-04-26] MEDS: DUPHALAC/CHRONULAC PO ×2 (21:18→21:36)
[2024-04-26] MEDS: MELATONIN 5 MG PO (21:19)
[2024-04-26] MEDS: REMERON 7.5 MG PO (21:21)
--- NOTE | 2024-04-26 21:41 | PTCARENOTE ---
Pt refusing lactulose; states she has been having loose stools all day and her backside is raw despite consistent perineal care and barrier cream performed by staff. Importance and purpose of lactulose in pt's POC reinforced, pt adamantly denies
states 'maybe I'll take it in the morning'.
[2024-04-26 23:25] VITALS: BP 133/91
[2024-04-27] MEDS: FLAGYL 500 MG 100 IV ×3 (04:03→21:17)
[2024-04-27] MEDS: ANESTHETIC LOZENGE 1 LOZENGE PO (04:14)
--- NOTE | 2024-04-27 05:01 | PTCARENOTE ---
VAT team entered pt's room to draw morning labs and redress PICC line; pt uncooperative with care, allowed for labs to be drawn but refused dressing change. Pt was found to be eating a bag of cheese puffs. Additional education provided to pt on
ordered clear liquid diet status, pt states 'I been eating those' ands shrugs. Pt reports they were provided by her father who visits intermittently.
[2024-04-27] MEDS: SOLU-MEDROL PF 40 MG IV ×3 (05:15→21:18)
[2024-04-27] MEDS: ZOSYN 50 IV ×3 (05:15→18:32)
[2024-04-27 05:16] LABS: Ammonia 23 umol/L (9-30)
[2024-04-27] MEDS: FIRVANQ 125 MG PO ×3 (05:16→18:32)
[2024-04-27 05:31] VITALS: BMI 24.9
[2024-04-27 05:35] LABS: % Basophils 0.1 % (0-2); % Immature Granulocytes 0.8 % (0-0.5); % Monocytes 7.1 % (1.7-9.3); Absolute Immature Granulocytes 0.1 10^3/uL (0-0.05); Absolute Lymphocytes 2.1 10^3/uL (1.2-3.4); Absolute Monocytes 0.6 10^3/uL (0.1-0.6); Absolute Neutrophils 6.2 10^3/uL (1.4-6.5); Hematocrit 26.6 % (37.0-47.0); Hemoglobin 8.8 g/dL (12.0-16.0); Mean Corp Hgb Conc. 33.1 g/dL (33.0-37.0); Mean Corpuscular Hgb 27.9 pg (27.0-31.0); Mean Corpuscular Volume 84.4 fL (81.0-99.0); Mean Platelet Volume 10.4 fL (7.4-10.4); Nucleated Red Blood Cells % 0.4 %; Platelet Count 151 10^3/uL (130-400); Red Blood Cell Count 3.15 10^6/uL (4.20-5.40); Red Cell Dist. Width 17.3 % (11.5-14.5)
[2024-04-27 05:40] LABS: INR 1.63; PT 19.5 Sec (11.4-14.6)
[2024-04-27 05:59] LABS: ALT (SGPT) 33 U/L (0-35); AST (SGOT) 26 U/L (14-36); Albumin 1.6 g/dl (3.5-5.0); Alkaline Phosphatase 152 U/L (38-126); Blood Urea Nitrogen 12 mg/dl (7-17); Calcium 6.9 mg/dl (8.4-10.2); Carbon Dioxide 14 mmol/L (22-30); Chloride 108 mmol/L (98-107); Estimated Creatinine Clearance 100 ml/min; Glucose 166 mg/dl (70-99); Potassium 2.7 mmol/L (3.5-5.1); Sodium 136 mmol/L (135-145); Total Bilirubin 0.6 mg/dl (0.2-1.3); Total Protein 4.2 g/dl (6.3-8.2); eGFR > 60.00
--- NOTE | 2024-04-27 06:16 | VATNOTE ---
PTS LUE 5FR DL PICC DDRSG COMPLETELY NON-OCCLUSIVE. EXPLAINED TO PT THE IMPORTANCE IN HAVING DRSG REPLACED. PT COMPLETELY UNCOOPERATIVE AND CONTINUED TO EAT CHEETOS WHILE I WAS ATTEMPTING TO CHANGE THE DRSG AND MAINTAIN STERILE TECHNIQUE. WHEN I
ATTEMPTED TO REPOSITION PTS ARM SHE YELLED AT ME AND SAID,'YOU ARE NOT MY MOTHER, YOU CANNOT CONTROL MY ARM'. LABS OBTAINED ORDERED.
--- NOTE | 2024-04-27 06:18 | PTCARENOTE ---
Critical K+ this AM, 2.7; covering HOUSE RN notified, pt placed on telemetry.
[2024-04-27] MEDS: KCL 270 MEQ IV (06:43)
[2024-04-27 07:58] VITALS: BP 179/102
--- NOTE | 2024-04-27 09:13 | W.PN.GS2 ---
Today's Communication / Plan
-
ADAT
Defer to GI
s/o
Assessment / Plan
-
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
nausea and vomiting and low grade temps
Recent admission at [facility] where she reportedly had EGD/colonoscopy
Recently left SNF ([facility]) to live with family
Difficult to discern the exact cause for her symptoms. Unlikely to be an adhesive SBO given lack of surgical history and age. No evidence of a hernia on exam or CT scan. Unlikely to be a mass given age. More likely to be related to IBD or drug
related. Likely component of dysmotility related to drugs as well.
Recurrent issues with nausea and abdominal discomfort prompting repeat CT with IV (no PO) contrast, which demonstrates continued SB dilation, diffuse wall thickening and edema, ascites, and severe fatty liver disease. Continues to pass flatus
stools. Tachycardia resolved, afebrile, WBC normalized.
Prior imaging reviewed; no PO contrast studies obtained. SBFT ordered 04/26/24 however pt refused PO contrast. She does not appear to be clinically obstructed
Plan:
-- No role for surgical intervention at this time
-- If patient agreeable to SBFT pls notify GS team
-- From surg standpoint, OK to ADAT
-- Defer to GI on further mgmt
-- Pls call with ?s
Subjective Data
-
Date of Service: April 27, 2024
AFVSS, says 'there's nothing wrong with my stomach,' passed multiple liquid BMs, denies n/v, reports roman CLD, refused PO contrast yesterday for SBFT
Objective Data
-
Intake and Output
04/26/24 04/27/24 04/28/24
06:59 06:59 06:59
Intake Total 1200 / 1200 2680 / 2680
Output Total 2 / 2
Balance 1200 / 1200 2678 / 2678
Intake:
Oral fluids 1200 / 1200 1680 / 1680
IV fluids (Total) 700 / 700
IV piggybacks 300 / 300
Output:
Liquid stool amount 2 / 2
Rectum 2 / 2
Other:
Number of approximated MODERATE 2
amounts of urine
How many times incontinent 4 4
MODERATE amount urine
How many times incontinent 1
SATURATED amount urine
Number of unmeasured liquid
stools
Rectum 2 5
Vital Signs
Temp Pulse Resp BP Pulse Ox
98.3 F 74 16 179/102 100
04/27/24 07:58 04/27/24 07:58 04/27/24 07:58 04/27/24 07:58 04/27/24 07:58
Lab Results
04/27/24 04:38
04/27/24 04:38
Calcium 6.9 mg/dl (8.4-10.2) L* 04/27/24 04:38
Phosphorus 2.6 mg/dl (2.5-4.5) 04/05/24 04:49
Magnesium 1.6 mg/dl (1.6-2.3) 04/25/24 04:33
Total Bilirubin 0.6 mg/dl (0.2-1.3) 04/27/24 04:38
AST 26 U/L (14-36) 04/27/24 04:38
ALT 33 U/L (0-35) 04/27/24 04:38
Alkaline Phosphatase 152 U/L (38-126) H 04/27/24 04:38
Total Protein 4.2 g/dl (6.3-8.2) L 04/27/24 04:38
Albumin 1.6 g/dl (3.5-5.0) L 04/27/24 04:38
Physical Exam
-
Gen: NAd
Abd: soft, distended, diffuse mild ttp
[2024-04-27] MEDS: MIRALAX 17 GRAMS PO ×2 (10:29→21:18)
[2024-04-27] MEDS: SUBUTEX 6 MG SL (10:30)
[2024-04-27] MEDS: PROTONIX 40 MG PO (10:30)
[2024-04-27] MEDS: DUPHALAC/CHRONULAC 20 GRAMS PO (10:30)
[2024-04-27] MEDS: LIDOCAINE 4% PATCH 1 PATCH TOPICAL (10:30)
[2024-04-27] MEDS: THIAMINE INJECTION 100 MG IV (10:31)
[2024-04-27] MEDS: SODIUM BICARBONATE 1150 MEQ IV (10:31)
[2024-04-27 11:10] LABS: Ionized Calcium 1.09 mMOL/L (1.15-1.33)
[2024-04-27 11:38] VITALS: BP 175/124
--- NOTE | 2024-04-27 13:00 | W.PN.GI.CBS2 ---
Today's Communication / Plan
-
Full liquid diet
Continue trend CRP
Assessment / Plan
-
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
the ED from rehab facility for abdominal pain and distention. Patient was previously living in [place], with recent admission at [facility] in November 2023 for similar abdominal pain and states she had both endoscopy and colonoscopy and was
diagnosed with Crohn's disease. She does have a prior history of small bowel obstruction, but denies any prior abdominal surgeries. Reportedly, SBO had previously improved with NGT and resolved without surgical intervention. Patient denies any
diarrhea. She never followed up with GI. She has never been on any treatment for Crohn's, other than prednisone. She also has known Hepatitis C, never treated. She was seen earlier in admission with concern for sepsis with leukocytosis, elevated
lactate and abdominal pain concern for SBO/partial obstruction. She had been treated with steroid with weaning during admission. She has also noted with HE with lactulose therapy. Asked to see as she had repeat CT with noted increased edema
and wall thickening with severe pratt colitis. she has had multiple other issues during admission including HE/metabolic encephalopathy/delirium, toe ulceration with exposed bone and concern for osteomyelitis.
04/25/24 CT Abd/pelvis W Iv Cont
1. Interval increase in severe submucosal edema and circumferential wall thickening throughout nearly the entire colon consistent with a SEVERE ACUTE PANCOLITIS (possibly C. Difficile Colitis).
2. Severe distention of small bowel loops with fluid and air in the central anterior abdomen and pelvis. Diagnostic possibilities are (1) an acute gastroenteritis, (2) an adynamic ileus, or (3) a partial small bowel obstruction.
3. Small volume of abdominal and pelvic ascites.
4. Mild smooth peritoneal thickening and hyperenhancement in the pelvis suggesting ACUTE PERITONITIS.
5. SEVERE DIFFUSE HEPATIC STEATOSIS with moderate atrophy of the lateral segment of the left lobe the liver and multiple regions of hyperenhancement in the subcapsular regions of the liver (mostly in the lateral segment of the left lobe) which are
probably regions of perfusion abnormality or focal fatty sparing.
6. 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
-abnormal CT with severe Submucosal edema with severe acute pancolitis, concern for gastroenteritis/ileus/PSBO, peritonitis
-prior noted concern for SBO/partial on admission s/p NGT
--recent concern for Crohn's disease on recent steroids, fecal kristina >3000 (at [facility]-awaiting records)
-acidosis
- Liver cirrhosis - MELD 04/27-
-hep C - untreated, severe diffuse hepatic steatosis- chronic ALT elevation
-chronic splenic infarct per CT
-change in mental status with hx HE elevated ammonia
-osteomyelitis- with chronic alk phos elevation
-leukocytosis- improving
-anemia
-tachycardia
-coagulopathy
- hypoalbuminemia
-+tox screen on admission
other med problems:
-hx IVDA
--bipolar
-RUQ amputation
-GERD
PLAN:
Patient refused to drink contrast for small bowel follow-through study. Tolerating clear liquid diet without any abdominal pain or nausea or vomiting.
Will advance to full liquid diet
Discussed again that we need contrast imaging for further evaluation of small intestines/Crohn's disease-including MRE or CTE. Patient does not want to drink contrast. Edematous bowel can be secondary to severe hypoalbuminemia
CRP noted to be elevated. WBC normal. No fever spikes. Blood cx 04/01 - negative . prior US - no adequate fluid for para. Will trend CRP
Continue IV steroids for now
PO vanco started by medical team with concern for c-diff (toxin negative. Antigen positive)
cont empiric abx started by medical team
again [facility] [place] [facility]
OP GI follow up as due to at [place] 05/19
will need eventual hep C treatment diagnosed 14 years ago
cont PPI with steroid use
Total Time Spent with Patient (in minutes): 35
Subjective
Subjective
Date of Service: April 27, 2024
Denies any abdominal pain/nausea/vomiting. Tolerating clear liquid diet. Patient refused to drink contrast yesterday for small bowel follow-through study
Objective
Data Reviewed
Laboratory Data:
Laboratory Results
04/27/24 04:38
04/27/24 04:38
Laboratory Results
PT 19.5 Sec (11.4-14.6) H 04/27/24 04:39
INR 1.63 04/27/24 04:39
Phosphorus 2.6 mg/dl (2.5-4.5) 04/05/24 04:49
Magnesium 1.6 mg/dl (1.6-2.3) 04/25/24 04:33
Total Bilirubin 0.6 mg/dl (0.2-1.3) 04/27/24 04:38
AST 26 U/L (14-36) 04/27/24 04:38
ALT 33 U/L (0-35) 04/27/24 04:38
Alkaline Phosphatase 152 U/L (38-126) H 04/27/24 04:38
Lipase 18 U/L (23-300) L 03/31/24 22:16
Vital Signs and I&O:
Vital Signs
Temp Pulse Resp BP Pulse Ox
98.1 F 102 16 175/124 100
04/27/24 11:38 04/27/24 11:38 04/27/24 11:38 04/27/24 11:38 04/27/24 11:38
I&O
04/26/24 04/27/24 04/28/24
06:59 06:59 06:59
Intake Total 1200 / 1200 2680 / 2680
Output Total 2 / 2
Balance 1200 / 1200 2678 / 2678
Physical Exam
Physical Exam
GI: Distended (Mildly distended) and Non Tender
--- NOTE | 2024-04-27 13:44 | CM ---
Reviewed the chart notes and spoke with the patient at the bedside. Patient's diet upgraded to full liquids. CM continues to be available to patient/family and is monitoring medical plan for needs at discharge.
Plan: Discharge plans continue to be SNF/rehab. Auth required. One time contract was obtained with [employer].
--- NOTE | 2024-04-27 15:00 | PTCARENOTE ---
Patient with widely inaccurate BP's in lower extremities. Obtained BP in L FA, more appropriately 140/99.
--- NOTE | 2024-04-27 15:11 | W.PN.HOSP.TC ---
Today's Communication/Plan
-
Continue alkalinized fluids.
Continue lactulose and follow ammonia level.
Broad-spectrum antibiotics including C. difficile coverage.
Full liquid diet
Mild hypertension likely related to ongoing volume repletion. Continue hydralazine IV as needed. Avoid diuretics at this point.
Assessment / Plan
Assessment / Plan
Impression.
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
persistent abdominal pain and fever.
Persistent abdominal pain.
Partial small bowel obstruction secondary to Crohn's disease inflammatory stricture
Sepsis ruled out
Cirrhosis by records and imaging
Hepatitis C untreated.
Chronic normocytic anemia
Hypoalbuminemia
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
Acute urinary retention
Right foot/great toe ulcer
R upper arm amp with small dermal ulcer.
R ischial stage 2 small pressure injury.
Sacral/buttocks linear discolored stage 1 and 2 pressure injuries.
Plan:
Presentation with abdominal pain, fever, leukocytosis, lactic acid elevation. Initial concern for clinical sepsis.
CT scan in ED with oral contrast only:
1. Significant dilation of the proximal and mid small bowel, measuring up to 6.5 cm in diameter, with relative decompression of the distal small bowel and colon. Findings are suggestive of at least partial small intestinal obstruction, although
well-defined transition point is not appreciated.
Managed with NG tube for decompression, empiric antibiotics.
With clinical inclination of inflammatory process possibly Crohn's flareup initiated on systemic steroids/Solu-Medrol with transition to prednisone with improvement.
Diet has been advanced to low residue, although patient had been not compliant with diet restrictions.
On 04/25 patient developed abdominal pain, recurrent nausea and vomiting, elevated white count. She has loose stools while on lactulose.
Normal anion gap metabolic acidosis with lactic acid at 1.7 likely indicative of GI losses and less likely ischemia
Repeated CT scan on 04/25 with IV contrast only:
1. Interval increase in severe submucosal edema and circumferential wall thickening throughout nearly the entire colon consistent with a SEVERE ACUTE PANCOLITIS (possibly C. Difficile Colitis).
2. Severe distention of small bowel loops with fluid and air in the central anterior abdomen and pelvis. Diagnostic possibilities are (1) an acute gastroenteritis, (2) an adynamic ileus, or (3) a partial small bowel obstruction.
3. Small volume of abdominal and pelvic ascites.
4. Mild smooth peritoneal thickening and hyperenhancement in the pelvis suggesting ACUTE PERITONITIS.
5. SEVERE DIFFUSE HEPATIC STEATOSIS with moderate atrophy of the lateral segment of the left lobe the liver and multiple regions of hyperenhancement in the subcapsular regions of the liver (mostly in the lateral segment of the left lobe) which are
probably regions of perfusion abnormality or focal fatty sparing.
6. 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
On 04/26 patient declined small bowel follow-through refusing taking contrast.
Initiated on empiric antibiotics including Zosyn, metronidazole, oral vancomycin for broad coverage intra-abdominal pathogens and C. difficile
Patient declined oral contrast study in multiple occasions
Transitioned back to IV Solu-Medrol
Overall improved with resolution of nausea and abdominal pain
Remains acidotic, normal anion gap acidosis with normal lactic acid level.
Stool studies pending
C. difficile antigen positive toxin negative
Continue empiric antibiotics including C. difficile coverage
Continue IV steroids
Continue alkalinized IV fluids.
Full liquid diet
Altered mental status likely multifactorial and due to hepatic encephalopathy.
Ammonia level elevated up to 108.
Cirrhosis by imaging.
Untreated hepatitis C.
Ultrasound of the abdomen with minimal nonpalpable ascites.
CT scan imaging consistent with cirrhotic liver.
Lactulose resumed. Titrate to 2-3 bowel movements a day
Hold diuretics for now.
Right great toe ulcer with exposed bone. MRI concerning for distal tuft osteomyelitis.
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
-s/p antibiotics for 48-72 hours post op (ancef)- DCed on 04/11/24
-Heel WBAT to RLE is acceptable
-Dressings to remain clean, dry, intact
PT recommending DC to SNF
Substance abuse with history of IVDA.
Admission Urine drug screen positive for multiple substances.
Repeated urine drug screen on 04/07 cleared and positive only for Suboxone
Continue Suboxone sublingual- intermittently refusing it.
Patient declined Suboxone on multiple occasions
Discussed with psychiatry.
Plan is to wean off Suboxone slowly.
Currently holding Seroquel and Neurontin given hepatic encephalopathy.
Initiated on Remeron
Acute urinary retention.
Resolved
DVT prophylaxis�subcu Lovenox
Full code
DW RN
DW father on the phone. Extensive discussion.
Anticipated Discharge: > 48 hours
Subjective/Interval History
-
Date of Service: April 27, 2024
Objective Data
-
Labs:
Laboratory Results
04/27/24 04/27/24
04:38 04:39
WBC 9.0
Hgb 8.8 L
Hct 26.6 L
Plt Count 151 D
PT 19.5 H
INR 1.63
Sodium 136
Potassium 2.7 L*
Chloride 108 H
Carbon Dioxide 14 L*
BUN 12
Creatinine 0.6
Glucose 166 H
Calcium 6.9 L*
Total Bilirubin 0.6
AST 26
ALT 33
Alkaline Phosphatase 152 H
Vital Signs:
Vital Signs
Temp Pulse Resp BP Pulse Ox
98.1 F 102 16 175/124 100
04/27/24 11:38 04/27/24 11:38 04/27/24 11:38 04/27/24 11:38 04/27/24 11:38
I&O
04/26/24 04/27/24 04/28/24
06:59 06:59 06:59
Intake Total 1200 / 1200 2680 / 2680
Output Total
Balance 1200 / 1200 2678 / 2678
Physical Exam
-
General: Well Developed, No Apparent Distress, Comfortable and Appears Chronically Ill
HEENT: Normocephalic, Atraumatic and Moist Mucous Membranes
Respiratory: Non Labored Respirations; Negative Accessory Resp Muscle Use
Cardiac: Regular Rhythm and S1/S2; Negative Murmur, Rub or Gallop
GI: Other (Mild distention with hypoactive bowel sounds)
Rectal: Deferred by Provider
Musculoskeletal: No Clubbing, No Cyanosis, Edema, Right Lower Extrem, Edema, Left Lower Extrem and Other (RUE amputation with ulcer covered with bandage)
Skin: Negative Rash
Neuro: Awake and Alert; Negative Oriented (Disoriented)
Psych: Negative Intact Judgement/Insight
[2024-04-27 15:46] VITALS: BP 140/99
--- NOTE | 2024-04-27 16:59 | W.PN.UPDATE ---
Update Note
Progress Note Update
Pt seen & evaluated at bedside, chart reviewed. Reports that she wants to taper off buprenorphine as she feels 'high' when taking it and wants to avoid all substances like that. Reports that even with the lower dose still feels 'high' though less
so. When stopped taking 2nd dose of buprenorphine had withdrawal which is still lingering but tolerable and improving.
Also reported that she took gabapentin in the past which was helpful - thinks she titrated up to 300mg.
Adjusted buprenorphine to 4mg daily + 2mg afternoon with ongoing planned taper
Gabapentin 100mg TID, can also help with opioid withdrawal sxs and can help with opiate urges as well
--- NOTE | 2024-04-27 18:30 | PTCARENOTE ---
Assisted patient back into bed. Complete linen change/ hygiene completed with CHG bath.
After taking off tubi-quebracho tanner, noticed optifoam dressing on L anterior foot filled with serous fluid. Large skin tear/gash present. With large amount of serous drainage. With significant +3 to + 4 pitting edema. Patient refusing to rewear tubi-quebracho tanner
or have feet elevated.
Confirmed pulses with doppler in B/L LE. Confirmed PT in R Foot, Confirmed DP and PT in Left.
[2024-04-27] MEDS: LOVENOX 40 MG SC (18:32)
[2024-04-27 19:18] VITALS: BP 167/98
[2024-04-27] MEDS: DUPHALAC/CHRONULAC PO ×2 (21:17→21:32)
[2024-04-27] MEDS: NEURONTIN 100 MG PO (21:18)
[2024-04-27] MEDS: REMERON 7.5 MG PO (21:19)
[2024-04-27] MEDS: MELATONIN 5 MG PO (21:19)
[2024-04-27 23:28] VITALS: BP 126/81
[2024-04-28] VITALS (7 sets, daily range): BP systolic 104–185; BP diastolic 71–108; BMI 26.5
[2024-04-28] MEDS: SODIUM BICARBONATE 1150 MEQ IV
[2024-04-28] MEDS: ZOSYN 50 IV ×5 (00:01→23:16)
[2024-04-28] MEDS: FIRVANQ 125 MG PO ×5 (00:02→23:19)
--- NOTE | 2024-04-28 03:15 | PTCARENOTE ---
Pt on IVF's at 100/hr, generalized edema worsening. Right lower abdomen and top of L foot noted weeping, ABD dressing applied and changed many times during shift due to saturation. Pt on Telemetry monitoring. VS 104/71, 60, Pox 96 % RA, lungs CTA,
no c/o SOB noted. scallop shucker SALESPERSON MEN'S HATS made aware, no new orders at this time.
[2024-04-28] MEDS: FLAGYL 500 MG 100 IV ×3 (03:25→21:41)
--- NOTE | 2024-04-28 05:25 | PTCARENOTE ---
Pt noted with 9.5lb weight gain from yesterday. SFDC DEVELOPER made aware again.
[2024-04-28] MEDS: SOLU-MEDROL PF 40 MG IV ×3 (06:29→21:49)
--- NOTE | 2024-04-28 06:37 | W.PN.UPDATE ---
Update Note
Progress Note Update
RN notified PRINCIPAL PRODUCT MANAGER about patient weight gain. Albumin 1.6, likely third spacing. Patient is currently on alkalinized fluids, currently not in any respiratory distress, stable VS, awaiting lab results
[2024-04-28 06:43] LABS: % Basophils 0.1 % (0-2); % Immature Granulocytes 0.5 % (0-0.5); % Lymphocytes 16.1 % (20.5-51.1); % Monocytes 6.3 % (1.7-9.3); Absolute Immature Granulocytes 0.1 10^3/uL (0-0.05); Absolute Lymphocytes 1.7 10^3/uL (1.2-3.4); Absolute Monocytes 0.7 10^3/uL (0.1-0.6); Absolute Neutrophils 8.3 10^3/uL (1.4-6.5); Hematocrit 24.2 % (37.0-47.0); Hemoglobin 8.7 g/dL (12.0-16.0); Mean Corpuscular Hgb 28.3 pg (27.0-31.0); Mean Corpuscular Volume 78.8 fL (81.0-99.0); Mean Platelet Volume 10.6 fL (7.4-10.4); Nucleated Red Blood Cells % 0 %; Platelet Count 110 10^3/uL (130-400); Red Blood Cell Count 3.07 10^6/uL (4.20-5.40); Red Cell Dist. Width 16.4 % (11.5-14.5); White Blood Cell Count 10.7 10^3/uL (4.8-10.8)
[2024-04-28 07:22] LABS: Blood Urea Nitrogen 10 mg/dl (7-17); Calcium 6.9 mg/dl (8.4-10.2); Carbon Dioxide 21 mmol/L (22-30); Chloride 106 mmol/L (98-107); Estimated Creatinine Clearance 113 ml/min; Glucose 120 mg/dl (70-99); Potassium 2.9 mmol/L (3.5-5.1); Sodium 138 mmol/L (135-145); eGFR > 60.00
[2024-04-28] MEDS: SODIUM BICARBONATE IV (09:02)
[2024-04-28] MEDS: MIRALAX PO ×2 (09:04→21:40)
[2024-04-28] MEDS: THIAMINE INJECTION 100 MG IV (09:04)
[2024-04-28] MEDS: DUPHALAC/CHRONULAC PO ×2 (09:04→21:40)
[2024-04-28] MEDS: LIDOCAINE 4% PATCH TOPICAL (09:04)
[2024-04-28] MEDS: LASIX 40 MG IV (09:06)
[2024-04-28] MEDS: PROTONIX 40 MG PO (09:09)
[2024-04-28] MEDS: SUBUTEX 4 MG SL (09:09)
[2024-04-28] MEDS: NEURONTIN 100 MG PO ×3 (09:09→21:41)
[2024-04-28] MEDS: KCL 40 MEQ PO (09:09)
--- NOTE | 2024-04-28 09:18 | W.PN.GI.CBS2 ---
Today's Communication / Plan
-
trial of low residual diet
Assessment / Plan
-
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
the ED from rehab facility for abdominal pain and distention. Patient was previously living in [place], with recent admission at [facility] in November 2023 for similar abdominal pain and states she had both endoscopy and colonoscopy and was
diagnosed with Crohn's disease. She does have a prior history of small bowel obstruction, but denies any prior abdominal surgeries. Reportedly, SBO had previously improved with NGT and resolved without surgical intervention. Patient denies any
diarrhea. She never followed up with GI. She has never been on any treatment for Crohn's, other than prednisone. She also has known Hepatitis C, never treated. She was seen earlier in admission with concern for sepsis with leukocytosis, elevated
lactate and abdominal pain concern for SBO/partial obstruction. She had been treated with steroid with weaning during admission. She has also noted with HE with lactulose therapy. Asked to see as she had repeat CT with noted increased edema
and wall thickening with severe pratt colitis. she has had multiple other issues during admission including HE/metabolic encephalopathy/delirium, toe ulceration with exposed bone and concern for osteomyelitis.
04/25/24 CT Abd/pelvis W Iv Cont
1. Interval increase in severe submucosal edema and circumferential wall thickening throughout nearly the entire colon consistent with a SEVERE ACUTE PANCOLITIS (possibly C. Difficile Colitis).
2. Severe distention of small bowel loops with fluid and air in the central anterior abdomen and pelvis. Diagnostic possibilities are (1) an acute gastroenteritis, (2) an adynamic ileus, or (3) a partial small bowel obstruction.
3. Small volume of abdominal and pelvic ascites.
4. Mild smooth peritoneal thickening and hyperenhancement in the pelvis suggesting ACUTE PERITONITIS.
5. SEVERE DIFFUSE HEPATIC STEATOSIS with moderate atrophy of the lateral segment of the left lobe the liver and multiple regions of hyperenhancement in the subcapsular regions of the liver (mostly in the lateral segment of the left lobe) which are
probably regions of perfusion abnormality or focal fatty sparing.
6. 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
-abnormal CT with severe Submucosal edema with severe acute pancolitis, concern for gastroenteritis/ileus/PSBO, peritonitis
-prior noted concern for SBO/partial on admission s/p NGT
--recent concern for Crohn's disease on recent steroids, fecal kristina >3000 (at [facility]-awaiting records)
-acidosis
- Liver cirrhosis - MELD 04/27-
-hep C - untreated, severe diffuse hepatic steatosis- chronic ALT elevation
-chronic splenic infarct per CT
-change in mental status with hx HE elevated ammonia
-osteomyelitis- with chronic alk phos elevation
-leukocytosis- improving
-anemia
-tachycardia
-coagulopathy
- hypoalbuminemia
-+tox screen on admission
other med problems:
-hx IVDA
--bipolar
-RUQ amputation
-GERD
PLAN:
Patient refused to drink contrast for small bowel follow-through study. Tolerating full liquid diet without any abdominal pain or nausea or vomiting.
Will advance to low residual diet
Discussed again that we need contrast imaging for further evaluation of small intestines/Crohn's disease-including MRE or CTE. Patient does not want to drink contrast. Edematous bowel can be secondary to severe hypoalbuminemia
CRP noted to be elevated. WBC normal. No fever spikes. Blood cx 04/01 - negative . prior US - no adequate fluid for para. repeat CRP 04/28 - trending down ( 42.9 )
Continue IV steroids for now. if tolearting diet without any GI symptoms ok to switch to oral
PO vanco started by medical team with concern for c-diff (toxin negative. Antigen positive)
empiric abx started by medical team
[facility] [place] [facility] follow up as due to at [place] 05/19
will need eventual hep C treatment diagnosed 14 years ago
cont PPI with steroid use
Total Time Spent with Patient (in minutes): 35
Subjective
Subjective
Date of Service: April 28, 2024
patient was sleeping . tolerating liquid diet. She wants to eat normal food. denies any abd pain/ nausea/ vomiting .
Objective
Data Reviewed
Laboratory Data:
Laboratory Results
04/28/24 05:35
04/28/24 05:35
Laboratory Results
PT 19.5 Sec (11.4-14.6) H 04/27/24 04:39
INR 1.63 04/27/24 04:39
Phosphorus 2.6 mg/dl (2.5-4.5) 04/05/24 04:49
Magnesium 1.6 mg/dl (1.6-2.3) 04/25/24 04:33
Total Bilirubin 0.6 mg/dl (0.2-1.3) 04/27/24 04:38
AST 26 U/L (14-36) 04/27/24 04:38
ALT 33 U/L (0-35) 04/27/24 04:38
Alkaline Phosphatase 152 U/L (38-126) H 04/27/24 04:38
Lipase 18 U/L (23-300) L 03/31/24 22:16
Vital Signs and I&O:
Vital Signs
Temp Pulse Resp BP Pulse Ox
97.4 F 56 16 109/75 98
04/28/24 09:10 04/28/24 09:10 04/28/24 07:35 04/28/24 09:10 04/28/24 07:35
I&O
04/27/24 04/28/24 04/29/24
06:59 06:59 06:59
Intake Total 2680 / 2680 1979
Output Total 2 / 2
Balance 2678 / 2678 1979
Physical Exam
Physical Exam
GI: Soft, Distended and Non Tender
[2024-04-28] MEDS: KCL 270 MEQ IV (09:58)
--- NOTE | 2024-04-28 10:55 | CM ---
Reviewed the chart notes and spoke with the patient at the bedside. Patient's diet upgraded to low residual today. CM continues to be available to patient/family and is monitoring medical plan for needs at discharge.
Plan: Discharge to SNF/rehab once medically stable and auth obtained for [facility].
[2024-04-28] MEDS: SUBUTEX 2 MG SL (14:20)
--- NOTE | 2024-04-28 15:38 | W.PN.HOSP.TC ---
Today's Communication/Plan
-
Mental status has been fluctuant, although ammonia level trending down.
Patient refused lactulose on multiple occasions.
Monitor closely.
Continue antibiotics.
Continue IV steroids per
Advance to low residue diet and monitor.
With metabolic acidosis improving, stop IV fluids
Provide single dose of Lasix given elevated blood pressure and anasarca
Follow BMP
Psychiatry input appreciated on medication adjustment.
Assessment / Plan
Assessment / Plan
Impression.
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
persistent abdominal pain and fever.
Persistent abdominal pain.
Partial small bowel obstruction secondary to Crohn's disease inflammatory stricture
Sepsis ruled out
Cirrhosis by records and imaging
Hepatitis C untreated.
Chronic normocytic anemia
Hypoalbuminemia
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
Acute urinary retention
Right foot/great toe ulcer
R upper arm amp with small dermal ulcer.
R ischial stage 2 small pressure injury.
Sacral/buttocks linear discolored stage 1 and 2 pressure injuries.
Hypokalemia
Plan:
Presentation with abdominal pain, fever, leukocytosis, lactic acid elevation. Initial concern for clinical sepsis.
CT scan in ED with oral contrast only:
1. Significant dilation of the proximal and mid small bowel, measuring up to 6.5 cm in diameter, with relative decompression of the distal small bowel and colon. Findings are suggestive of at least partial small intestinal obstruction, although
well-defined transition point is not appreciated.
Managed with NG tube for decompression, empiric antibiotics.
With clinical inclination of inflammatory process possibly Crohn's flareup initiated on systemic steroids/Solu-Medrol with transition to prednisone with improvement.
Diet has been advanced to low residue, although patient had been not compliant with diet restrictions.
On 04/25 patient developed abdominal pain, recurrent nausea and vomiting, elevated white count. She has loose stools while on lactulose.
Normal anion gap metabolic acidosis with lactic acid at 1.7 likely indicative of GI losses and less likely ischemia
Repeated CT scan on 04/25 with IV contrast only:
1. Interval increase in severe submucosal edema and circumferential wall thickening throughout nearly the entire colon consistent with a SEVERE ACUTE PANCOLITIS (possibly C. Difficile Colitis).
2. Severe distention of small bowel loops with fluid and air in the central anterior abdomen and pelvis. Diagnostic possibilities are (1) an acute gastroenteritis, (2) an adynamic ileus, or (3) a partial small bowel obstruction.
3. Small volume of abdominal and pelvic ascites.
4. Mild smooth peritoneal thickening and hyperenhancement in the pelvis suggesting ACUTE PERITONITIS.
5. SEVERE DIFFUSE HEPATIC STEATOSIS with moderate atrophy of the lateral segment of the left lobe the liver and multiple regions of hyperenhancement in the subcapsular regions of the liver (mostly in the lateral segment of the left lobe) which are
probably regions of perfusion abnormality or focal fatty sparing.
6. 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
On 04/26 patient declined small bowel follow-through refusing taking contrast.
Initiated on empiric antibiotics including Zosyn, metronidazole, oral vancomycin for broad coverage intra-abdominal pathogens and C. difficile
Patient declined oral contrast study in multiple occasions
Transitioned back to IV Solu-Medrol
Overall improved with resolution of nausea and abdominal pain
Remains acidotic, normal anion gap acidosis with normal lactic acid level.
Stool studies pending
C. difficile antigen positive toxin negative
Continue empiric antibiotics including C. difficile coverage
Continue IV steroids
Continue alkalinized IV fluids.
Advance to low residue diet
Altered mental status likely multifactorial and due to hepatic encephalopathy.
Ammonia level elevated up to 108.
Cirrhosis by imaging.
Untreated hepatitis C.
Ultrasound of the abdomen with minimal nonpalpable ascites.
CT scan imaging consistent with cirrhotic liver.
Lactulose resumed. Titrate to 2-3 bowel movements a day
Has been off standing dose of diuretics
Right great toe ulcer with exposed bone. MRI concerning for distal tuft osteomyelitis.
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
-s/p antibiotics for 48-72 hours post op (ancef)- DCed on 04/11/24
-Heel WBAT to RLE is acceptable
-Dressings to remain clean, dry, intact
PT recommending DC to SNF
Substance abuse with history of IVDA.
Admission Urine drug screen positive for multiple substances.
Repeated urine drug screen on 04/07 cleared and positive only for Suboxone
Continue Suboxone sublingual- intermittently refusing it.
Patient declined Suboxone on multiple occasions
Discussed with psychiatry.
Plan is to wean off Suboxone slowly.
Continue Neurontin
Initiated on Remeron
Seroquel discontinued
Acute urinary retention.
Resolved
DVT prophylaxis�subcu Lovenox
Full code
DW RN
DW father on the phone. Extensive discussion.
Anticipated Discharge: > 48 hours
Subjective/Interval History
-
Date of Service: April 28, 2024
Objective Data
-
Labs:
Laboratory Results
04/28/24
05:35
WBC 10.7
Hgb 8.7 L
Hct 24.2 L
Plt Count 110 L D
Sodium 138
Potassium 2.9 L
Chloride 106
Carbon Dioxide 21 L
BUN 10
Creatinine 0.6
Glucose 120 H
Calcium 6.9 L*
Vital Signs:
Vital Signs
Temp Pulse Resp BP Pulse Ox
98.2 F 86 14 131/86 100
04/28/24 11:05 04/28/24 11:05 04/28/24 11:05 04/28/24 11:05 04/28/24 11:05
I&O
04/27/24 04/28/24 04/29/24
06:59 06:59 06:59
Intake Total 2679 / 2679
Output Total
Balance 2678 / 2677
Physical Exam
-
General: Well Developed, No Apparent Distress, Comfortable and Appears Chronically Ill
HEENT: Normocephalic, Atraumatic and Moist Mucous Membranes
Respiratory: Non Labored Respirations; Negative Accessory Resp Muscle Use
Cardiac: Regular Rhythm and S1/S2; Negative Murmur, Rub or Gallop
GI: Other (Mild distention with hypoactive bowel sounds)
Rectal: Deferred by Provider
Musculoskeletal: No Clubbing, No Cyanosis, Edema, Right Lower Extrem, Edema, Left Lower Extrem and Other (RUE amputation with ulcer covered with bandage)
Skin: Negative Rash
Neuro: Awake and Alert; Negative Oriented (Disoriented)
Psych: Negative Intact Judgement/Insight
--- NOTE | 2024-04-28 15:58 | W.PN.UPDATE ---
Update Note
Progress Note Update
Pt seen at bedside, chart reviewed. Is sitting up watching ipad comfortable. Reports that splitting buprenorphine to 4mg/2mg has helped and she no longer feels high from it. Does still want to taper off as soon as she can and is willing to tolerate
some withdrawal though agreeable to taper and slowing down if withdrawal is too bad.
Can trial stopping afternoon buprenorphine 2mg dose in few days
[2024-04-28] MEDS: LOVENOX SC (17:09)
--- NOTE | 2024-04-28 19:41 | VATNOTE ---
PT NOTED TO HAVE NO BR FROM EITHER LUMEN OF 5FR DL L PICC DESPITE MULTIPLE ATTEMPTS AND MEASURES TO ESTABLISH A BLD RETURN. AWAITING CATHFLO ORDER AND DELIVERY FROM PHARMACY TO INITIATE PROTOCOL. BLAS OBTAIN AMMONIA LEVEL AFATER BR RESTORED FROM
PICC.PCN AWARE OF INTERVETNION AND PLAN OF CARE.
[2024-04-28] MEDS: CATHFLO/ACTIVASE 2 MG INTRACATH (19:57)
--- NOTE | 2024-04-28 21:23 | VATNOTE ---
CATHFLO PER PROTOCOL VIA PURPLE LUMEN. POSITIVE FLUSH AND BLOOD RETURN AFTER ONE HOUR DWELL TIME. LABS DRAWN ORDERED. PCN AWARE OF INTERVENTION AND OUTCOME.
[2024-04-28 21:25] LABS: Ammonia 15 umol/L (9-30)
[2024-04-28] MEDS: REMERON 7.5 MG PO (21:42)
[2024-04-28] MEDS: MELATONIN 5 MG PO (21:46)
[2024-04-28] MEDS: ANESTHETIC LOZENGE 1 LOZENGE PO (21:46)
[2024-04-29 03:21] VITALS: BP 115/83
[2024-04-29] MEDS: FLAGYL 500 MG 100 IV (03:45)
[2024-04-29] MEDS: SOLU-MEDROL PF 40 MG IV ×3 (05:48→23:00)
[2024-04-29] MEDS: ZOSYN 50 IV (05:48)
[2024-04-29] MEDS: FIRVANQ 125 MG PO ×4 (05:48→23:12)
[2024-04-29 06:00] VITALS: BMI 26.9
[2024-04-29 06:34] LABS: % Basophils 0.1 % (0-2); % Immature Granulocytes 0.4 % (0-0.5); % Neutrophils 79.5 % (42.2-75.2); Absolute Immature Granulocytes 0.1 10^3/uL (0-0.05); Absolute Lymphocytes 1.6 10^3/uL (1.2-3.4); Absolute Monocytes 0.7 10^3/uL (0.1-0.6); Absolute Neutrophils 9.1 10^3/uL (1.4-6.5); Hematocrit 27.3 % (37.0-47.0); Mean Corpuscular Hgb 27.4 pg (27.0-31.0); Mean Corpuscular Volume 83.2 fL (81.0-99.0); Mean Platelet Volume 11.4 fL (7.4-10.4); Nucleated Red Blood Cells % 0 %; Platelet Count 106 10^3/uL (130-400); Red Blood Cell Count 3.28 10^6/uL (4.20-5.40); Red Cell Dist. Width 16.6 % (11.5-14.5); White Blood Cell Count 11.4 10^3/uL (4.8-10.8)
[2024-04-29 06:55] LABS: Blood Urea Nitrogen 7 mg/dl (7-17); Calcium 6.6 mg/dl (8.4-10.2); Carbon Dioxide 26 mmol/L (22-30); Chloride 103 mmol/L (98-107); Estimated Creatinine Clearance 114 ml/min; Glucose 134 mg/dl (70-99); Potassium 3.1 mmol/L (3.5-5.1); Sodium 137 mmol/L (135-145); eGFR > 60.00
[2024-04-29 07:35] VITALS: BP 124/88
[2024-04-29 08:10] VITALS: BMI 26.2
[2024-04-29] MEDS: DUPHALAC/CHRONULAC PO ×2 (08:40→20:32)
[2024-04-29] MEDS: MIRALAX PO ×2 (08:41→20:33)
[2024-04-29] MEDS: PROTONIX 40 MG PO (08:41)
[2024-04-29] MEDS: LIDOCAINE 4% PATCH TOPICAL (08:41)
[2024-04-29] MEDS: NEURONTIN 100 MG PO ×3 (08:42→22:59)
[2024-04-29] MEDS: THIAMINE INJECTION 100 MG IV (08:42)
[2024-04-29] MEDS: SUBUTEX 4 MG SL (08:42)
[2024-04-29] MEDS: CALCIUM GLUCONATE 100 IV (09:45)
[2024-04-29] MEDS: LASIX 40 MG IV (09:46)
--- NOTE | 2024-04-29 11:12 | PTCARENOTE ---
pt refusing lactulose, lidocaine patch and stat potassium this morning. pt with +3 pitting edema, same as yesterday for this nurse but with new finding of swelling on RU eyesocket this morning. Pt given stat IV lasix. Calcium 6.6 pt given stat bag.
pt weeping from abdomen and L foot abrasion. dressing change done by this nurse as appropriate.
[2024-04-29] MEDS: ZOSYN IV (12:17)
[2024-04-29] MEDS: FLAGYL 500 MG IV (12:17)
--- NOTE | 2024-04-29 12:50 | W.PN.GI.CBS2 ---
Today's Communication / Plan
-
C/w IV steroid taper to oral 3-4 days prior to hosp d/c
Tolerating diet
Stressed importance of adherence to lactulose
She has OP FU with GI at [facility]. May also benefit from transplant hepatology OP eval then as well
GI will sign off please call for questions
Assessment / Plan
-
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
the ED from rehab facility for abdominal pain and distention. Patient was previously living in [place], with recent admission at [facility] in November 2023 for similar abdominal pain and states she had both endoscopy and colonoscopy and was
diagnosed with Crohn's disease. She does have a prior history of small bowel obstruction, but denies any prior abdominal surgeries. Reportedly, SBO had previously improved with NGT and resolved without surgical intervention. Patient denies any
diarrhea. She never followed up with GI. She has never been on any treatment for Crohn's, other than prednisone. She also has known Hepatitis C, never treated. She was seen earlier in admission with concern for sepsis with leukocytosis, elevated
lactate and abdominal pain concern for SBO/partial obstruction. She had been treated with steroid with weaning during admission. She has also noted with HE with lactulose therapy. Asked to see as she had repeat CT with noted increased edema
and wall thickening with severe pratt colitis. she has had multiple other issues during admission including HE/metabolic encephalopathy/delirium, toe ulceration with exposed bone and concern for osteomyelitis.
04/25/24 CT Abd/pelvis W Iv Cont
1. Interval increase in severe submucosal edema and circumferential wall thickening throughout nearly the entire colon consistent with a SEVERE ACUTE PANCOLITIS (possibly C. Difficile Colitis).
2. Severe distention of small bowel loops with fluid and air in the central anterior abdomen and pelvis. Diagnostic possibilities are (1) an acute gastroenteritis, (2) an adynamic ileus, or (3) a partial small bowel obstruction.
3. Small volume of abdominal and pelvic ascites.
4. Mild smooth peritoneal thickening and hyperenhancement in the pelvis suggesting ACUTE PERITONITIS.
5. SEVERE DIFFUSE HEPATIC STEATOSIS with moderate atrophy of the lateral segment of the left lobe the liver and multiple regions of hyperenhancement in the subcapsular regions of the liver (mostly in the lateral segment of the left lobe) which are
probably regions of perfusion abnormality or focal fatty sparing.
6. 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
Impression
-abnormal CT with severe Submucosal edema with severe acute pancolitis, concern for gastroenteritis/ileus/PSBO, peritonitis
-prior noted concern for SBO/partial on admission s/p NGT
--recent concern for Crohn's disease on recent steroids, fecal kristina >3000 (at [facility]-awaiting records)
-acidosis
- Liver cirrhosis - MELD 04/27-
-hep C - untreated, severe diffuse hepatic steatosis- chronic ALT elevation
-chronic splenic infarct per CT
-change in mental status with hx HE elevated ammonia
-osteomyelitis- with chronic alk phos elevation
-leukocytosis- improving
-anemia
-tachycardia
-coagulopathy
- hypoalbuminemia
-+tox screen on admission
-hx IVDA
--bipolar
-RUQ amputation
-GERD
PLAN:
- Tolerating low residue diet
- Denies abd pain
- C/w IV steroids. Once tolerates oral intake consider transition to oral steroid 3-4 days prior to hosp d/c
- She is poor candidate for biologic therapy given social situation
- Advise her importance of using lactulose on standing basis
- She has OP FU with GI at [facility]. May also benefit from liver transplant evaluation as well
At this juncture no new GI recs will sign off please call for questions.
Above d/w hospitalist and dad.
Subjective
Subjective
Date of Service: April 29, 2024
Dad bedside today. She ate 75% of meals without further abd pain, nausea or vomiting. Had 3 BM yesterday but in past refusing lactulose.
Objective
Data Reviewed
Laboratory Data:
Laboratory Results
04/29/24 06:17
04/29/24 06:17
Laboratory Results
PT 19.5 Sec (11.4-14.6) H 04/27/24 04:39
INR 1.63 04/27/24 04:39
Phosphorus 2.6 mg/dl (2.5-4.5) 04/05/24 04:49
Magnesium 1.6 mg/dl (1.6-2.3) 04/25/24 04:33
Total Bilirubin 0.6 mg/dl (0.2-1.3) 04/27/24 04:38
AST 26 U/L (14-36) 04/27/24 04:38
ALT 33 U/L (0-35) 04/27/24 04:38
Alkaline Phosphatase 152 U/L (38-126) H 04/27/24 04:38
Lipase 18 U/L (23-300) L 03/31/24 22:16
Vital Signs and I&O:
Vital Signs
Temp Pulse Resp BP Pulse Ox
97.2 F 63 16 124/88 100
04/29/24 07:35 04/29/24 07:35 04/29/24 07:35 04/29/24 07:35 04/29/24 11:33
I&O
04/28/24 04/29/24 04/30/24
06:59 06:59 06:59
Intake Total 1979 1640 / 1640 250 / 250
Balance 1979 1640 / 1640 250 / 250
Physical Exam
Physical Exam
GEN: No acute distress, conversant, chronically ill appearing
HEENT: anicteric, extraocular movements intact, clear oropharynx without exudates
GI: soft, obese mildly distended
EXT: poor profusion limb issues with chronic skin breakdown
NEURO: non focal
[2024-04-29] MEDS: SUBUTEX 2 MG SL (13:44)
--- NOTE | 2024-04-29 13:51 | WOUNDNOTE ---
LEFT DORSAL FOOT
--- NOTE | 2024-04-29 14:08 | CM ---
Reviewed the chart notes and spoke with the patient at the bedside. CM continues to be available to patient/family and is monitoring medical plan for needs at discharge.
Plan: Discharge to SNF/rehab once medically stable and auth obtained for [facility].
--- NOTE | 2024-04-29 14:41 | WOUNDNOTE ---
WO RN NOTE: Patient for new skin tear to left dorsal foot and draining right great toe amputation site. TT pictures to Dr. Casillas of right great toe amp site that is now draining. Orders confirmed for Betadine to toe and dry sterile dressing
loosely wrapped with MARYANA. Left dorsal foot with deep appearing skin tear. Per staff, wound occurred when patients father moved her to the wheelchair. The wound is clean and draining a moderate amount of serous fluid as patient has edema and needs
continued education and encouragement to wear compression. Local wound care provided with Xeroform, alginate and ABD and tubi production technologist. DELVIN Heart updated on plan. Orders and careplan update. Will continue to follow as needed.
[2024-04-29 15:25] VITALS: BP 137/102
--- NOTE | 2024-04-29 16:50 | W.PN.HOSP.TC ---
Today's Communication/Plan
-
Discontinue systemic antibiotics and continue oral vancomycin.
IV Lasix per
IV calcium
Replete potassium
Assessment / Plan
Assessment / Plan
Impression.
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
persistent abdominal pain and fever.
Persistent abdominal pain.
Partial small bowel obstruction secondary to Crohn's disease inflammatory stricture
Sepsis ruled out
Cirrhosis by records and imaging
Hepatitis C untreated.
Chronic normocytic anemia
Hypoalbuminemia
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
Acute urinary retention
Right foot/great toe ulcer
R upper arm amp with small dermal ulcer.
R ischial stage 2 small pressure injury.
Sacral/buttocks linear discolored stage 1 and 2 pressure injuries.
Hypokalemia
Hypocalcemia
Severe hypoalbuminemia
Plan:
Presentation with abdominal pain, fever, leukocytosis, lactic acid elevation. Initial concern for clinical sepsis.
CT scan in ED with oral contrast only:
1. Significant dilation of the proximal and mid small bowel, measuring up to 6.5 cm in diameter, with relative decompression of the distal small bowel and colon. Findings are suggestive of at least partial small intestinal obstruction, although
well-defined transition point is not appreciated.
Managed with NG tube for decompression, empiric antibiotics.
With clinical inclination of inflammatory process possibly Crohn's flareup initiated on systemic steroids/Solu-Medrol with transition to prednisone with improvement.
Diet has been advanced to low residue, although patient had been not compliant with diet restrictions.
On 04/25 patient developed abdominal pain, recurrent nausea and vomiting, elevated white count. She has loose stools while on lactulose.
Normal anion gap metabolic acidosis with lactic acid at 1.7 likely indicative of GI losses and less likely ischemia
Repeated CT scan on 04/25 with IV contrast only:
1. Interval increase in severe submucosal edema and circumferential wall thickening throughout nearly the entire colon consistent with a SEVERE ACUTE PANCOLITIS (possibly C. Difficile Colitis).
2. Severe distention of small bowel loops with fluid and air in the central anterior abdomen and pelvis. Diagnostic possibilities are (1) an acute gastroenteritis, (2) an adynamic ileus, or (3) a partial small bowel obstruction.
3. Small volume of abdominal and pelvic ascites.
4. Mild smooth peritoneal thickening and hyperenhancement in the pelvis suggesting ACUTE PERITONITIS.
5. SEVERE DIFFUSE HEPATIC STEATOSIS with moderate atrophy of the lateral segment of the left lobe the liver and multiple regions of hyperenhancement in the subcapsular regions of the liver (mostly in the lateral segment of the left lobe) which are
probably regions of perfusion abnormality or focal fatty sparing.
6. 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
On 04/26 patient declined small bowel follow-through refusing taking contrast.
Initiated on empiric antibiotics including Zosyn, metronidazole, oral vancomycin for broad coverage intra-abdominal pathogens and C. difficile
Patient declined oral contrast study in multiple occasions
Could be severe pancolitis, although clinically does not present like toxic megacolon. CT scan findings also could reflect severe bowel wall edema in the settings of anasarca and cirrhosis.
Transitioned back to IV Solu-Medrol
Overall improved with resolution of nausea and abdominal pain
CRP trending down
Stool studies pending negative to date
C. difficile antigen positive toxin negative
Discontinue systemic antibiotics per
Continue oral vancomycin to complete total of 14 days of treatment
Continue IV steroids with transition to prednisone taper if stable over the next 24 to 48 hours
Advance to low residue diet
Altered mental status likely multifactorial and due to hepatic encephalopathy.
Ammonia level elevated up to 108.
Cirrhosis by imaging.
Untreated hepatitis C.
Ultrasound of the abdomen with minimal nonpalpable ascites.
CT scan imaging consistent with cirrhotic liver.
Lactulose resumed. Titrate to 2-3 bowel movements a day
Has been off standing dose of diuretics
Severe anasarca
Volume overload and been iatrogenic given requirement for IV fluids with severe metabolic acidosis which is currently improved
Lasix 40 mg IV provided on 04/28, 04/29.
Monitor volume status closely
Consider to resume daily Lasix, although patient declined in the past.
Hypocalcemia replete, follow ionized calcium
Hypokalemia replete.
Hypoalbuminemia
Initiated on Ensure
Right great toe ulcer with exposed bone. MRI concerning for distal tuft osteomyelitis.
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
-s/p antibiotics for 48-72 hours post op (ancef)- DCed on 04/11/24
-Heel WBAT to RLE is acceptable
-Dressings to remain clean, dry, intact
PT recommending DC to SNF
Substance abuse with history of IVDA.
Admission Urine drug screen positive for multiple substances.
Repeated urine drug screen on 04/07 cleared and positive only for Suboxone
Continue Suboxone sublingual- intermittently refusing it.
Patient declined Suboxone on multiple occasions
Discussed with psychiatry.
Plan is to wean off Suboxone slowly.
Continue Neurontin
Initiated on Remeron
Seroquel discontinued
Acute urinary retention.
Resolved
DVT prophylaxis�subcu Lovenox
Full code
Anticipated Discharge: > 48 hours
Subjective/Interval History
-
Date of Service: April 29, 2024
Objective Data
-
Labs:
Laboratory Results
04/29/24
06:17
WBC 11.4 H
Hgb 9.0 L
Hct 27.3 L
Plt Count 106 L
Sodium 137
Potassium 3.1 L
Chloride 103
Carbon Dioxide 26
BUN 7
Creatinine 0.5 L
Glucose 134 H
Calcium 6.6 L*
Vital Signs:
Vital Signs
Temp Pulse Resp BP Pulse Ox
98.4 F 80 16 137/102 99
04/29/24 15:25 04/29/24 15:25 04/29/24 15:25 04/29/24 15:25 04/29/24 15:25
I&O
04/28/24 04/29/24 04/30/24
06:59 06:59 06:59
Intake Total 1979 1640 / 1640 250 / 250
Balance 1979 1640 / 1640 250 / 250
Physical Exam
-
General: Well Developed, No Apparent Distress, Comfortable and Appears Chronically Ill
HEENT: Normocephalic, Atraumatic and Moist Mucous Membranes
Respiratory: Non Labored Respirations; Negative Accessory Resp Muscle Use
Cardiac: Regular Rhythm and S1/S2; Negative Murmur, Rub or Gallop
GI: Other (Mild distention with hypoactive bowel sounds)
Rectal: Deferred by Provider
Musculoskeletal: No Clubbing, No Cyanosis, Edema, Right Lower Extrem, Edema, Left Lower Extrem and Other (RUE amputation with ulcer covered with bandage)
Skin: Negative Rash
Neuro: Awake and Alert; Negative Oriented (Disoriented)
Psych: Negative Intact Judgement/Insight
[2024-04-29] MEDS: LOVENOX SC (17:44)
[2024-04-29] MEDS: ANESTHETIC LOZENGE 1 LOZENGE PO (17:53)
[2024-04-29] MEDS: MELATONIN 5 MG PO (22:59)
[2024-04-29] MEDS: REMERON 7.5 MG PO (22:59)
[2024-04-29 23:24] VITALS: BP 120/87
[2024-04-30 06:00] VITALS: BMI 26.1
[2024-04-30] MEDS: SOLU-MEDROL PF 40 MG IV ×3 (06:00→21:58)
[2024-04-30] MEDS: FIRVANQ 125 MG PO ×3 (06:01→17:10)
[2024-04-30 07:55] VITALS: BP 126/94
[2024-04-30] MEDS: DUPHALAC/CHRONULAC 20 GRAMS PO ×2 (07:57→21:57)
[2024-04-30] MEDS: LIDOCAINE 4% PATCH 1 PATCH TOPICAL (07:57)
[2024-04-30] MEDS: PROTONIX 40 MG PO (07:58)
[2024-04-30] MEDS: NEURONTIN 100 MG PO ×3 (07:58→21:58)
[2024-04-30] MEDS: THIAMINE INJECTION 100 MG IV (07:58)
[2024-04-30] MEDS: MIRALAX PO ×3 (07:58→21:59)
[2024-04-30] MEDS: SUBUTEX 4 MG SL (07:58)
[2024-04-30 08:21] LABS: % Basophils 0.2 % (0-2); % Immature Granulocytes 0.7 % (0-0.5); % Lymphocytes 7.5 % (20.5-51.1); % Monocytes 4.2 % (1.7-9.3); % Neutrophils 87.4 % (42.2-75.2); Absolute Immature Granulocytes 0.1 10^3/uL (0-0.05); Absolute Lymphocytes 0.9 10^3/uL (1.2-3.4); Absolute Monocytes 0.5 10^3/uL (0.1-0.6); Absolute Neutrophils 10.7 10^3/uL (1.4-6.5); Hematocrit 30.2 % (37.0-47.0); Hemoglobin 10.1 g/dL (12.0-16.0); Ionized Calcium 1.01 mMOL/L (1.15-1.33); Mean Corp Hgb Conc. 33.4 g/dL (33.0-37.0); Mean Corpuscular Hgb 27.2 pg (27.0-31.0); Mean Corpuscular Volume 81.4 fL (81.0-99.0); Mean Platelet Volume 11.3 fL (7.4-10.4); Nucleated Red Blood Cells % 0 %; Platelet Count 113 10^3/uL (130-400); Red Blood Cell Count 3.71 10^6/uL (4.20-5.40); Red Cell Dist. Width 16.5 % (11.5-14.5); White Blood Cell Count 12.2 10^3/uL (4.8-10.8)
--- NOTE | 2024-04-30 09:02 | W.PN.HOSP.TC ---
Today's Communication/Plan
-
Replete electrolytes. Continue IV steroids. Continue oral antibiotic. Advance diet as tolerated.
Assessment / Plan
Assessment / Plan
Physical exam:
General: Acute on chronically ill
HEENT: Normocephalic, Atraumatic and Moist Mucous Membranes
Respiratory: Clear to Auscultation; Negative Wheezes, Rales or Rhonchi
Cardiac: Regular Rhythm and S1/S2
GI: Soft, Nontender and Nondistended
Musculoskeletal: Right arm amputation. No Clubbing, No Cyanosis and No Edema
Neuro: Awake, Alert and Oriented
Psych: Calm
A/P:
Impression.
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
persistent abdominal pain and fever.
Persistent abdominal pain.
Partial small bowel obstruction secondary to Crohn's disease inflammatory stricture
Sepsis ruled out
Cirrhosis by records and imaging
Hepatitis C untreated.
Chronic normocytic anemia
Hypoalbuminemia
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
Acute urinary retention
Right foot/great toe ulcer
R upper arm amp with small dermal ulcer.
R ischial stage 2 small pressure injury.
Sacral/buttocks linear discolored stage 1 and 2 pressure injuries.
Hypokalemia
Hypocalcemia
Severe hypoalbuminemia
Plan:
Presentation with abdominal pain, fever, leukocytosis, lactic acid elevation. Initial concern for clinical sepsis.
CT scan in ED with oral contrast only:
1. Significant dilation of the proximal and mid small bowel, measuring up to 6.5 cm in diameter, with relative decompression of the distal small bowel and colon. Findings are suggestive of at least partial small intestinal obstruction, although
well-defined transition point is not appreciated.
Managed with NG tube for decompression, empiric antibiotics.
With clinical inclination of inflammatory process possibly Crohn's flareup initiated on systemic steroids/Solu-Medrol with transition to prednisone with improvement.
Diet has been advanced to low residue, although patient had been not compliant with diet restrictions.
On 04/25 patient developed abdominal pain, recurrent nausea and vomiting, elevated white count. She has loose stools while on lactulose.
Normal anion gap metabolic acidosis with lactic acid at 1.7 likely indicative of GI losses and less likely ischemia
Repeated CT scan on 04/25 with IV contrast only:
1. Interval increase in severe submucosal edema and circumferential wall thickening throughout nearly the entire colon consistent with a SEVERE ACUTE PANCOLITIS (possibly C. Difficile Colitis).
2. Severe distention of small bowel loops with fluid and air in the central anterior abdomen and pelvis. Diagnostic possibilities are (1) an acute gastroenteritis, (2) an adynamic ileus, or (3) a partial small bowel obstruction.
3. Small volume of abdominal and pelvic ascites.
4. Mild smooth peritoneal thickening and hyperenhancement in the pelvis suggesting ACUTE PERITONITIS.
5. SEVERE DIFFUSE HEPATIC STEATOSIS with moderate atrophy of the lateral segment of the left lobe the liver and multiple regions of hyperenhancement in the subcapsular regions of the liver (mostly in the lateral segment of the left lobe) which are
probably regions of perfusion abnormality or focal fatty sparing.
6. 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
On 04/26 patient declined small bowel follow-through refusing taking contrast.
Initiated on empiric antibiotics including Zosyn, metronidazole, oral vancomycin for broad coverage intra-abdominal pathogens and C. difficile
Patient declined oral contrast study in multiple occasions
Could be severe pancolitis, although clinically does not present like toxic megacolon. CT scan findings also could reflect severe bowel wall edema in the settings of anasarca and cirrhosis.
Transitioned back to IV Solu-Medrol
Overall improved with resolution of nausea and abdominal pain
CRP trending down
Stool studies pending negative to date
C. difficile antigen positive toxin negative
Discontinue systemic antibiotics per
Continue oral vancomycin to complete total of 14 days of treatment
Continue IV steroids with transition to prednisone taper if stable over the next 24 to 48 hours
Advance to low residue diet
Altered mental status likely multifactorial and due to hepatic encephalopathy.
Ammonia level elevated up to 108.
Cirrhosis by imaging.
Untreated hepatitis C.
Ultrasound of the abdomen with minimal nonpalpable ascites.
CT scan imaging consistent with cirrhotic liver.
Lactulose resumed. Titrate to 2-3 bowel movements a day
Has been off standing dose of diuretics
Severe anasarca
Volume overload and been iatrogenic given requirement for IV fluids with severe metabolic acidosis which is currently improved
Lasix 40 mg IV provided on 04/28, 04/29.
Monitor volume status closely
Consider to resume daily Lasix, although patient declined in the past.
Hypocalcemia replete, follow ionized calcium
Hypokalemia replete.
Hypoalbuminemia
Initiated on Ensure
Right great toe ulcer with exposed bone. MRI concerning for distal tuft osteomyelitis.
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
-s/p antibiotics for 48-72 hours post op (ancef)- DCed on 04/11/24
-Heel WBAT to RLE is acceptable
-Dressings to remain clean, dry, intact
PT recommending DC to SNF
Substance abuse with history of IVDA.
Admission Urine drug screen positive for multiple substances.
Repeated urine drug screen on 04/07 cleared and positive only for Suboxone
Continue Suboxone sublingual- intermittently refusing it.
Patient declined Suboxone on multiple occasions
Discussed with psychiatry.
Plan is to wean off Suboxone slowly.
Continue Neurontin
Initiated on Remeron
Seroquel discontinued
Acute urinary retention.
Resolved
DVT prophylaxis�subcu Lovenox
Full code
Anticipated Discharge: > 48 hours
Subjective/Interval History
-
Date of Service: April 30, 2024
Patient does not like current diet and would like to be on regular diet. Alert. No worsening pain. Afebrile
Objective Data
-
Labs:
Laboratory Results
04/30/24
08:07
WBC 12.2 H
Hgb 10.1 L
Hct 30.2 L
Plt Count 113 L
Sodium Pending
Potassium Pending
Chloride Pending
Carbon Dioxide Pending
BUN Pending
Creatinine Pending
Glucose Pending
Calcium Pending
Total Bilirubin Pending
AST Pending
ALT Pending
Alkaline Phosphatase Pending
Vital Signs:
Vital Signs
Temp Pulse Resp BP Pulse Ox
97.7 F 77 18 126/94 100
04/30/24 07:55 04/30/24 07:55 04/30/24 07:55 04/30/24 07:55 04/30/24 07:55
I&O
04/29/24 04/30/24 05/01/24
06:59 06:59 06:59
Intake Total 1640 / 1640 1370 / 1370
Balance 1640 / 1640 1370 / 1370
[2024-04-30 09:06] LABS: ALT (SGPT) 30 U/L (0-35); AST (SGOT) 20 U/L (14-36); Albumin 1.7 g/dl (3.5-5.0); Alkaline Phosphatase 167 U/L (38-126); Blood Urea Nitrogen 4 mg/dl (7-17); Calcium 6.7 mg/dl (8.4-10.2); Carbon Dioxide 27 mmol/L (22-30); Chloride 102 mmol/L (98-107); Estimated Creatinine Clearance 112 ml/min; Glucose 112 mg/dl (70-99); Potassium 3.1 mmol/L (3.5-5.1); Sodium 139 mmol/L (135-145); Total Bilirubin 0.6 mg/dl (0.2-1.3); Total Protein 4.4 g/dl (6.3-8.2); eGFR > 60.00
[2024-04-30] MEDS: CALCIUM GLUCONATE 100 IV (09:44)
[2024-04-30] MEDS: SUBUTEX 2 MG SL (13:51)
[2024-04-30 15:22] VITALS: BP 99/66
[2024-04-30] MEDS: KCL 270 MEQ IV (16:48)
[2024-04-30] MEDS: LOVENOX 40 MG SC (17:11)
[2024-04-30] MEDS: ANESTHETIC LOZENGE 1 LOZENGE PO (19:24)
[2024-04-30] MEDS: REMERON 7.5 MG PO (21:57)
[2024-04-30] MEDS: MELATONIN 5 MG PO (21:57)
[2024-04-30 23:39] VITALS: BP 134/95
[2024-05-01] MEDS: FIRVANQ 125 MG PO ×5 (00:29→23:47)
--- NOTE | 2024-05-01 03:00 | PTCARENOTE ---
04/30/2024 - Contacted attending as PT has had weight gain of 17 pounds in the last week. PT has anasarca. Respiratory change as PT has now developed wet cough, b/l lungs sound wheeze. VS - BP 99/66, 96 HR, 96% SpO2 on RA, Resp 18, temp 98.6. PT has
HX of pneumonia. Requested bedside chest xray. Pending results. PT HOB elevated to 35 degrees.
[2024-05-01 06:00] VITALS: BMI 26.7
[2024-05-01] MEDS: SOLU-MEDROL PF 40 MG IV ×3 (06:45→21:58)
[2024-05-01 07:35] VITALS: BP 127/97
[2024-05-01] MEDS: DUPHALAC/CHRONULAC 20 GRAMS PO ×2 (07:47→21:58)
[2024-05-01] MEDS: LIDOCAINE 4% PATCH 1 PATCH TOPICAL (07:47)
[2024-05-01] MEDS: MIRALAX PO ×2 (07:48→21:58)
[2024-05-01] MEDS: NEURONTIN 100 MG PO ×3 (07:48→21:58)
[2024-05-01] MEDS: SUBUTEX 4 MG SL (07:48)
[2024-05-01] MEDS: PROTONIX 40 MG PO (07:48)
[2024-05-01] MEDS: THIAMINE INJECTION 100 MG IV (07:48)
[2024-05-01 08:13] LABS: % Basophils 0.1 % (0-2); % Immature Granulocytes 0.6 % (0-0.5); % Lymphocytes 14.4 % (20.5-51.1); % Monocytes 7.6 % (1.7-9.3); % Neutrophils 77.3 % (42.2-75.2); Absolute Immature Granulocytes 0.1 10^3/uL (0-0.05); Absolute Lymphocytes 1.6 10^3/uL (1.2-3.4); Absolute Monocytes 0.8 10^3/uL (0.1-0.6); Absolute Neutrophils 8.4 10^3/uL (1.4-6.5); Hematocrit 29.5 % (37.0-47.0); Hemoglobin 10.5 g/dL (12.0-16.0); Mean Corp Hgb Conc. 35.6 g/dL (33.0-37.0); Mean Corpuscular Hgb 28.4 pg (27.0-31.0); Mean Corpuscular Volume 79.7 fL (81.0-99.0); Mean Platelet Volume 11.8 fL (7.4-10.4); Nucleated Red Blood Cells % 0.2 %; Platelet Count 122 10^3/uL (130-400); Red Cell Dist. Width 16.7 % (11.5-14.5); White Blood Cell Count 10.9 10^3/uL (4.8-10.8)
--- NOTE | 2024-05-01 08:43 | W.PN.HOSP.TC ---
Today's Communication/Plan
-
Nasal spray. Continue IV steroids.
Assessment / Plan
Assessment / Plan
Physical exam:
General: Acute on chronically ill
HEENT: Normocephalic, Atraumatic and Moist Mucous Membranes
Respiratory: Clear to Auscultation; Negative Wheezes, Rales or Rhonchi
Cardiac: Regular Rhythm and S1/S2
GI: Soft, Nontender and Distended but normal bowel sounds
Musculoskeletal: Right arm amputation. No Clubbing, No Cyanosis and No Edema
Neuro: Awake, Alert and Oriented
Psych: Calm
A/P:
Impression.
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
persistent abdominal pain and fever.
Persistent abdominal pain.
Partial small bowel obstruction secondary to Crohn's disease inflammatory stricture
Sepsis ruled out
Cirrhosis by records and imaging
Hepatitis C untreated.
Chronic normocytic anemia
Hypoalbuminemia
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
Acute urinary retention
Right foot/great toe ulcer
R upper arm amp with small dermal ulcer.
R ischial stage 2 small pressure injury.
Sacral/buttocks linear discolored stage 1 and 2 pressure injuries.
Hypokalemia
Hypocalcemia
Severe hypoalbuminemia
Plan:
Presentation with abdominal pain, fever, leukocytosis, lactic acid elevation. Initial concern for clinical sepsis.
CT scan in ED with oral contrast only:
1. Significant dilation of the proximal and mid small bowel, measuring up to 6.5 cm in diameter, with relative decompression of the distal small bowel and colon. Findings are suggestive of at least partial small intestinal obstruction, although
well-defined transition point is not appreciated.
Managed with NG tube for decompression, empiric antibiotics.
With clinical inclination of inflammatory process possibly Crohn's flareup initiated on systemic steroids/Solu-Medrol with transition to prednisone with improvement.
Diet has been advanced to low residue, although patient had been not compliant with diet restrictions.
On 04/25 patient developed abdominal pain, recurrent nausea and vomiting, elevated white count. She has loose stools while on lactulose.
Normal anion gap metabolic acidosis with lactic acid at 1.7 likely indicative of GI losses and less likely ischemia
Repeated CT scan on 04/25 with IV contrast only:
1. Interval increase in severe submucosal edema and circumferential wall thickening throughout nearly the entire colon consistent with a SEVERE ACUTE PANCOLITIS (possibly C. Difficile Colitis).
2. Severe distention of small bowel loops with fluid and air in the central anterior abdomen and pelvis. Diagnostic possibilities are (1) an acute gastroenteritis, (2) an adynamic ileus, or (3) a partial small bowel obstruction.
3. Small volume of abdominal and pelvic ascites.
4. Mild smooth peritoneal thickening and hyperenhancement in the pelvis suggesting ACUTE PERITONITIS.
5. SEVERE DIFFUSE HEPATIC STEATOSIS with moderate atrophy of the lateral segment of the left lobe the liver and multiple regions of hyperenhancement in the subcapsular regions of the liver (mostly in the lateral segment of the left lobe) which are
probably regions of perfusion abnormality or focal fatty sparing.
6. 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
On 04/26 patient declined small bowel follow-through refusing taking contrast.
Initiated on empiric antibiotics including Zosyn, metronidazole, oral vancomycin for broad coverage intra-abdominal pathogens and C. difficile
Patient declined oral contrast study in multiple occasions
Could be severe pancolitis, although clinically does not present like toxic megacolon. CT scan findings also could reflect severe bowel wall edema in the settings of anasarca and cirrhosis.
Transitioned back to IV Solu-Medrol
Overall improved with resolution of nausea and abdominal pain
CRP trending down
Stool studies pending negative to date
C. difficile antigen positive toxin negative
Discontinue systemic antibiotics per
Continue oral vancomycin to complete total of 14 days of treatment
Continue IV steroids with transition to prednisone taper if stable over the next 24 to 48 hours
Advance to low residue diet--> patient requested regular diet status changed accordingly.
Check x-ray of the abdomen today low likelihood of SBO and ultrasound in a.m. to look for ascites if still some distention. Will give one-time dose of Lasix IV today.
Altered mental status likely multifactorial and due to hepatic encephalopathy.
Ammonia level elevated up to 108.
Cirrhosis by imaging.
Untreated hepatitis C.
Ultrasound of the abdomen with minimal nonpalpable ascites.
CT scan imaging consistent with cirrhotic liver.
Lactulose resumed. Titrate to 2-3 bowel movements a day
Has been off standing dose of diuretics
Severe anasarca
Volume overload and been iatrogenic given requirement for IV fluids with severe metabolic acidosis which is currently improved
Lasix 40 mg IV provided on 04/28, 04/29.
Monitor volume status closely
Consider to resume daily Lasix, although patient declined in the past.
Hypocalcemia replete, follow ionized calcium
Hypokalemia replete.
Hypoalbuminemia
Initiated on Ensure
Right great toe ulcer with exposed bone. MRI concerning for distal tuft osteomyelitis.
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
-s/p antibiotics for 48-72 hours post op (ancef)- DCed on 04/11/24
-Heel WBAT to RLE is acceptable
-Dressings to remain clean, dry, intact
PT recommending DC to SNF
Substance abuse with history of IVDA.
Admission Urine drug screen positive for multiple substances.
Repeated urine drug screen on 04/07 cleared and positive only for Suboxone
Continue Suboxone sublingual- intermittently refusing it.
Patient declined Suboxone on multiple occasions
Discussed with psychiatry.
Plan is to wean off Suboxone slowly.
Continue Neurontin
Initiated on Remeron
Seroquel discontinued
Acute urinary retention.
Resolved
DVT prophylaxis�subcu Lovenox
Full code
Anticipated Discharge: 24 - 48 hours
Subjective/Interval History
-
Date of Service: May 01, 2024
Patient complains of mild nasal congestion and also some abdominal distention. She denies abdominal pain and she denies nausea or vomiting. She is tolerating food intake and she is having bowel movements.
Objective Data
-
Labs:
Laboratory Results
05/01/24
07:55
WBC 10.9 H
Hgb 10.5 L
Hct 29.5 L
Plt Count 122 L
Sodium Pending
Potassium Pending
Chloride Pending
Carbon Dioxide Pending
BUN Pending
Creatinine Pending
Glucose Pending
Calcium Pending
Vital Signs:
Vital Signs
Temp Pulse Resp BP Pulse Ox
98.2 F 49 16 127/97 95
05/01/24 07:35 05/01/24 07:35 05/01/24 07:35 05/01/24 07:35 05/01/24 07:35
I&O
04/30/24 05/01/24 05/02/24
06:59 06:59 06:59
Intake Total 1370 / 1370 2029
Balance 1370 / 1370 2029
[2024-05-01 08:55] LABS: Blood Urea Nitrogen 3 mg/dl (7-17); Calcium 7.5 mg/dl (8.4-10.2); Carbon Dioxide 24 mmol/L (22-30); Chloride 104 mmol/L (98-107); Estimated Creatinine Clearance 113 ml/min; Glucose 109 mg/dl (70-99); Magnesium 1.4 mg/dl (1.6-2.3); Potassium 3.8 mmol/L (3.5-5.1); Sodium 137 mmol/L (135-145); eGFR > 60.00
[2024-05-01] MEDS: SUBUTEX 2 MG SL (13:25)
[2024-05-01] MEDS: AFRIN NASAL SPRAY 2 SPRAYS NASAL (14:28)
[2024-05-01] MEDS: KCL 20 MEQ PO (14:29)
[2024-05-01] MEDS: MAGNESIUM SULFATE 100 IV (14:33)
[2024-05-01] MEDS: LASIX 20 MG IV (14:34)
[2024-05-01] MEDS: ANESTHETIC LOZENGE 1 LOZENGE PO ×2 (14:54→21:59)
[2024-05-01 15:00] VITALS: BP 105/87
[2024-05-01] MEDS: LOVENOX 40 MG SC (17:42)
[2024-05-01] MEDS: REMERON 7.5 MG PO (21:58)
[2024-05-01] MEDS: MELATONIN 5 MG PO (21:58)
[2024-05-01] MEDS: MYLICON 80 MG PO (21:59)
[2024-05-01 23:31] VITALS: BP 124/93
[2024-05-02] MEDS: SOLU-MEDROL PF 40 MG IV ×3 (05:27→21:21)
[2024-05-02] MEDS: FIRVANQ 125 MG PO ×3 (05:27→17:18)
[2024-05-02 05:31] VITALS: BMI 27.0
[2024-05-02 06:56] LABS: % Basophils 0.2 % (0-2); % Immature Granulocytes 0.6 % (0-0.5); % Lymphocytes 14.7 % (20.5-51.1); % Monocytes 6.2 % (1.7-9.3); % Neutrophils 78.3 % (42.2-75.2); Absolute Immature Granulocytes 0.1 10^3/uL (0-0.05); Absolute Lymphocytes 1.9 10^3/uL (1.2-3.4); Absolute Monocytes 0.8 10^3/uL (0.1-0.6); Hematocrit 28.5 % (37.0-47.0); Mean Corp Hgb Conc. 35.1 g/dL (33.0-37.0); Mean Corpuscular Hgb 28.2 pg (27.0-31.0); Mean Corpuscular Volume 80.5 fL (81.0-99.0); Mean Platelet Volume 11.6 fL (7.4-10.4); Nucleated Red Blood Cells % 0.2 %; Platelet Count 148 10^3/uL (130-400); Red Blood Cell Count 3.54 10^6/uL (4.20-5.40); Red Cell Dist. Width 17.2 % (11.5-14.5); White Blood Cell Count 12.8 10^3/uL (4.8-10.8)
[2024-05-02 07:07] LABS: Blood Urea Nitrogen 2 mg/dl (7-17); Calcium 7.6 mg/dl (8.4-10.2); Carbon Dioxide 26 mmol/L (22-30); Chloride 102 mmol/L (98-107); Estimated Creatinine Clearance 114 ml/min; Glucose 123 mg/dl (70-99); Magnesium 2.2 mg/dl (1.6-2.3); Sodium 135 mmol/L (135-145); eGFR > 60.00
[2024-05-02 07:30] VITALS: BP 146/105
[2024-05-02] MEDS: ANESTHETIC LOZENGE 1 LOZENGE PO (08:37)
[2024-05-02] MEDS: MIRALAX PO (08:37)
[2024-05-02] MEDS: LIDOCAINE 4% PATCH 1 PATCH TOPICAL (08:39)
[2024-05-02] MEDS: DUPHALAC/CHRONULAC 20 GRAMS PO ×2 (08:39→21:21)
[2024-05-02] MEDS: SUBUTEX 2 MG SL ×2 (08:41→17:16)
[2024-05-02] MEDS: NEURONTIN 100 MG PO ×3 (08:41→21:21)
[2024-05-02] MEDS: PROTONIX 40 MG PO (08:42)
[2024-05-02] MEDS: THIAMINE INJECTION 100 MG IV (08:42)
[2024-05-02 13:30] VITALS: BP 143/95; PULSE 97; O2SAT 96
[2024-05-02 13:32] VITALS: BP 143/95; PULSE 96; O2SAT 96
--- NOTE | 2024-05-02 14:26 | CM ---
Reviewed the chart notes. Updated CM referral sent to [facility]. CM continues to be available to patient/family and is monitoring medical plan for needs at discharge.
Plan: Discharge to SNF/rehab once bed secured and precert obtained.
[2024-05-02 15:45] VITALS: BP 137/99
--- NOTE | 2024-05-02 16:33 | W.PN.HOSP.TC ---
Today's Communication/Plan
-
Reinstate IV antibiotics/Ancef for right great toe wound infection
Continue wound care as per podiatry
Continue IV steroids
Ultrasound of the abdomen to reassess for ascites
Patient declined oral diuretic regimen in multiple occasions. Monitor volume status closely. As needed IV Lasix to manage edema/anasarca
Assessment / Plan
Assessment / Plan
A/P:
Impression.
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
persistent abdominal pain and fever.
Persistent abdominal pain.
Partial small bowel obstruction secondary to Crohn's disease inflammatory stricture
Sepsis ruled out
Cirrhosis by records and imaging
Hepatitis C untreated.
Chronic normocytic anemia
Hypoalbuminemia
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
Acute urinary retention
Right foot/great toe ulcer
R upper arm amp with small dermal ulcer.
R ischial stage 2 small pressure injury.
Sacral/buttocks linear discolored stage 1 and 2 pressure injuries.
Hypokalemia
Hypocalcemia
Severe hypoalbuminemia
Plan:
Presentation with abdominal pain, fever, leukocytosis, lactic acid elevation. Initial concern for clinical sepsis.
CT scan in ED with oral contrast only:
1. Significant dilation of the proximal and mid small bowel, measuring up to 6.5 cm in diameter, with relative decompression of the distal small bowel and colon. Findings are suggestive of at least partial small intestinal obstruction, although
well-defined transition point is not appreciated.
Managed with NG tube for decompression, empiric antibiotics.
With clinical inclination of inflammatory process possibly Crohn's flareup initiated on systemic steroids/Solu-Medrol with transition to prednisone with improvement.
Diet has been advanced to low residue, although patient had been not compliant with diet restrictions.
On 04/25 patient developed abdominal pain, recurrent nausea and vomiting, elevated white count. She has loose stools while on lactulose.
Normal anion gap metabolic acidosis with lactic acid at 1.7 likely indicative of GI losses and less likely ischemia
Repeated CT scan on 04/25 with IV contrast only:
1. Interval increase in severe submucosal edema and circumferential wall thickening throughout nearly the entire colon consistent with a SEVERE ACUTE PANCOLITIS (possibly C. Difficile Colitis).
2. Severe distention of small bowel loops with fluid and air in the central anterior abdomen and pelvis. Diagnostic possibilities are (1) an acute gastroenteritis, (2) an adynamic ileus, or (3) a partial small bowel obstruction.
3. Small volume of abdominal and pelvic ascites.
4. Mild smooth peritoneal thickening and hyperenhancement in the pelvis suggesting ACUTE PERITONITIS.
5. SEVERE DIFFUSE HEPATIC STEATOSIS with moderate atrophy of the lateral segment of the left lobe the liver and multiple regions of hyperenhancement in the subcapsular regions of the liver (mostly in the lateral segment of the left lobe) which are
probably regions of perfusion abnormality or focal fatty sparing.
6. 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
On 04/26 patient declined small bowel follow-through refusing taking contrast.
Initiated on empiric antibiotics including Zosyn, metronidazole, oral vancomycin for broad coverage intra-abdominal pathogens and C. difficile
Patient declined oral contrast study in multiple occasions
Could be severe pancolitis, although clinically does not present like toxic megacolon. CT scan findings also could reflect severe bowel wall edema in the settings of anasarca and cirrhosis.
Transitioned back to IV Solu-Medrol
Overall improved with resolution of nausea and abdominal pain
CRP trending down
Stool studies pending negative to date
C. difficile antigen positive toxin negative
Discontinue systemic antibiotics per
Continue oral vancomycin to complete total of 14 days of treatment
Continue IV steroids with transition to prednisone taper if stable over the next 24 to 48 hours
Advance to low residue diet--> patient requested regular diet status changed accordingly.
Check x-ray of the abdomen today low likelihood of SBO
Repeat ultrasound to reassess for ascitic fluid
Altered mental status likely multifactorial and due to hepatic encephalopathy.
Ammonia level elevated up to 108.
Cirrhosis by imaging.
Untreated hepatitis C.
Ultrasound of the abdomen with minimal nonpalpable ascites.
CT scan imaging consistent with cirrhotic liver.
Lactulose resumed. Titrate to 2-3 bowel movements a day
Has been off standing dose of diuretics
Severe anasarca
Volume overload and been iatrogenic given requirement for IV fluids with severe metabolic acidosis which is currently improved
Lasix 40 mg IV provided on 04/28, 04/29.
Monitor volume status closely
Consider to resume daily Lasix, although patient declined in the past.
Hypocalcemia replete, follow ionized calcium
Hypokalemia replete.
Hypoalbuminemia
Initiated on Ensure
Right great toe ulcer with exposed bone. MRI concerning for distal tuft osteomyelitis.
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
-s/p antibiotics for 48-72 hours post op (ancef)- DCed on 04/11/24
-Heel WBAT to RLE is acceptable
Continue wound care per podiatry.
Recommended to resume antibiotics, will start Ancef.
Monitor closely
Currently no indication for surgical intervention.
Substance abuse with history of IVDA.
Admission Urine drug screen positive for multiple substances.
Repeated urine drug screen on 04/07 cleared and positive only for Suboxone
Continue Suboxone sublingual- intermittently refusing it.
Patient declined Suboxone on multiple occasions
Discussed with psychiatry.
Plan is to wean off Suboxone slowly.
Continue Neurontin
Initiated on Remeron
Seroquel discontinued
Acute urinary retention.
Resolved
DVT prophylaxis�subcu Lovenox
Full code
Anticipated Discharge: 24 - 48 hours
Subjective/Interval History
-
Date of Service: May 02, 2024
Objective Data
-
Labs:
Laboratory Results
05/02/24
06:23
WBC 12.8 H
Hgb 10.0 L
Hct 28.5 L
Plt Count 148 D
Sodium 135
Potassium 4.0
Chloride 102
Carbon Dioxide 26
BUN 2 L
Creatinine 0.5 L
Glucose 123 H
Calcium 7.6 L
Vital Signs:
Vital Signs
Temp Pulse Resp BP Pulse Ox
98.6 F 87 16 137/99 98
05/02/24 15:45 05/02/24 15:45 05/02/24 15:45 05/02/24 15:45 05/02/24 15:45
I&O
05/01/24 05/02/24 05/03/24
06:59 06:59 06:59
Intake Total 2029 1180 / 1180
Balance 2029 1180 / 1180
Physical Exam
-
General: Well Developed, No Apparent Distress, Comfortable and Appears Chronically Ill
HEENT: Normocephalic, Atraumatic and Moist Mucous Membranes
Respiratory: Non Labored Respirations; Negative Accessory Resp Muscle Use
Cardiac: Regular Rhythm and S1/S2; Negative Murmur, Rub or Gallop
GI: Other (Mild distention with hypoactive bowel sounds)
Rectal: Deferred by Provider
Musculoskeletal: No Clubbing, No Cyanosis, Edema, Right Lower Extrem, Edema, Left Lower Extrem and Other (RUE amputation with ulcer covered with bandage)
Skin: Negative Rash
Neuro: Awake and Alert; Negative Oriented (Disoriented)
Psych: Negative Intact Judgement/Insight
[2024-05-02] MEDS: LOVENOX 40 MG SC (17:17)
[2024-05-02] MEDS: ANCEF 10 IV (17:20)
[2024-05-02 19:20] VITALS: BP 130/84
--- NOTE | 2024-05-02 19:58 | W.PN.SURGUPD ---
Surgical Update
Surgical Update
partial is s/p R partial hallux amputation on 04/08
-Patient was seen and evaluated at bedside. Sutures were removed last week
-Incision with moderate maceration from serious drainage from surgical site. At high risk for breakdown
-Please start antibiotics
-Recommend daily dressing changes with betadine to R hallux, following by DSD and MARYANA bandage with light compressio
-Will continue to monitor
[2024-05-02] MEDS: MIRALAX 17 GRAMS PO (21:21)
[2024-05-02] MEDS: REMERON 7.5 MG PO (21:21)
[2024-05-02] MEDS: MELATONIN 5 MG PO (21:21)
[2024-05-02 23:37] VITALS: BP 135/106
[2024-05-03] MEDS: FIRVANQ 125 MG PO ×4 (01:27→17:09)
[2024-05-03] MEDS: ANCEF 10 IV ×3 (01:27→17:09)
[2024-05-03] MEDS: SOLU-MEDROL PF 40 MG IV ×3 (05:48→22:01)
[2024-05-03 05:54] VITALS: BMI 27.2
[2024-05-03 07:30] VITALS: BP 134/102
[2024-05-03] MEDS: NEURONTIN 100 MG PO ×3 (09:37→22:01)
[2024-05-03] MEDS: SUBUTEX 2 MG SL ×2 (09:37→17:09)
[2024-05-03] MEDS: THIAMINE INJECTION 100 MG IV (09:37)
[2024-05-03] MEDS: PROTONIX 40 MG PO (09:37)
[2024-05-03] MEDS: MIRALAX PO (09:49)
[2024-05-03] MEDS: LIDOCAINE 4% PATCH TOPICAL (09:54)
[2024-05-03] MEDS: DUPHALAC/CHRONULAC PO (09:54)
--- NOTE | 2024-05-03 10:01 | W.PN.UPDATE ---
Update Note
Progress Note Update
Patient seen at bedside, chart reviewed, discussed with staff. Patient asleep upon entering the room but easily aroused to the call of her name. She reportedly stays up through the night and prefers to sleep during the day. She offers no complaints
at this time. She feels she is tolerating the Subutex taper. She reports mild withdrawal symptoms but feels she can handle it.
Impression/Recommendation: Opioid use disorder, severe - history of IVDA drug use; Unspecified anxiety, stable
Continue with Subutex, currently at 2mg BID, can attempt to DC evening dose in a few days if tolerating. Continue Remeron 7.5mg HS and Gabapentin 100mg TID.
Seroquel remains on hold due to encephalopathy with no ill effects noted at this time.
--- NOTE | 2024-05-03 12:10 | CM ---
Addendum entered by Shy Cali RN 05/03/24 15:24:
Amada Ramey replied interested. NALDO spoke with [facility] ([phone]). She will review with her medical team and let CM know if able to accept.
Original Note:
Reviewed the chart notes. Per attending, patient ready for discharge. Clinicals faxed to [facility] (([phone]) for an auth for [facility].
Kenmareedward NPI# [id number]
Dr. Santiago NPI# [id number]
Plan: Discharge to [facility] when auth approved. One time contract was established with [facility] and [facility] earlier this admission.
[2024-05-03 15:35] VITALS: BP 136/110
--- NOTE | 2024-05-03 15:59 | W.PN.HOSP.TC ---
Today's Communication/Plan
-
Paracentesis
Continue wound care per
Continue antibiotics
Continue IV steroid
Assessment / Plan
Assessment / Plan
A/P:
Impression.
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
persistent abdominal pain and fever.
Persistent abdominal pain.
Partial small bowel obstruction secondary to Crohn's disease inflammatory stricture
Sepsis ruled out
Cirrhosis by records and imaging
Hepatitis C untreated.
Chronic normocytic anemia
Hypoalbuminemia
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
Acute urinary retention
Right foot/great toe ulcer
R upper arm amp with small dermal ulcer.
R ischial stage 2 small pressure injury.
Sacral/buttocks linear discolored stage 1 and 2 pressure injuries.
Hypokalemia
Hypocalcemia
Severe hypoalbuminemia
Plan:
Presentation with abdominal pain, fever, leukocytosis, lactic acid elevation. Initial concern for clinical sepsis.
CT scan in ED with oral contrast only:
1. Significant dilation of the proximal and mid small bowel, measuring up to 6.5 cm in diameter, with relative decompression of the distal small bowel and colon. Findings are suggestive of at least partial small intestinal obstruction, although
well-defined transition point is not appreciated.
Managed with NG tube for decompression, empiric antibiotics.
With clinical inclination of inflammatory process possibly Crohn's flareup initiated on systemic steroids/Solu-Medrol with transition to prednisone with improvement.
Diet has been advanced to low residue, although patient had been not compliant with diet restrictions.
On 04/25 patient developed abdominal pain, recurrent nausea and vomiting, elevated white count. She has loose stools while on lactulose.
Normal anion gap metabolic acidosis with lactic acid at 1.7 likely indicative of GI losses and less likely ischemia
Repeated CT scan on 04/25 with IV contrast only:
1. Interval increase in severe submucosal edema and circumferential wall thickening throughout nearly the entire colon consistent with a SEVERE ACUTE PANCOLITIS (possibly C. Difficile Colitis).
2. Severe distention of small bowel loops with fluid and air in the central anterior abdomen and pelvis. Diagnostic possibilities are (1) an acute gastroenteritis, (2) an adynamic ileus, or (3) a partial small bowel obstruction.
3. Small volume of abdominal and pelvic ascites.
4. Mild smooth peritoneal thickening and hyperenhancement in the pelvis suggesting ACUTE PERITONITIS.
5. SEVERE DIFFUSE HEPATIC STEATOSIS with moderate atrophy of the lateral segment of the left lobe the liver and multiple regions of hyperenhancement in the subcapsular regions of the liver (mostly in the lateral segment of the left lobe) which are
probably regions of perfusion abnormality or focal fatty sparing.
6. 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
On 04/26 patient declined small bowel follow-through refusing taking contrast.
Initiated on empiric antibiotics including Zosyn, metronidazole, oral vancomycin for broad coverage intra-abdominal pathogens and C. difficile
Patient declined oral contrast study in multiple occasions
Could be severe pancolitis, although clinically does not present like toxic megacolon. CT scan findings also could reflect severe bowel wall edema in the settings of anasarca and cirrhosis.
Transitioned back to IV Solu-Medrol
Overall improved with resolution of nausea and abdominal pain
CRP trending down
Stool studies pending negative to date
C. difficile antigen positive toxin negative
Discontinue systemic antibiotics per
Continue oral vancomycin to complete total of 14 days of treatment
Continue IV steroids with transition to prednisone taper if stable over the next 24 to 48 hours
Advance to low residue diet--> patient requested regular diet status changed accordingly.
Check x-ray of the abdomen today low likelihood of SBO
Repeat ultrasound findings consistent with mild to moderate ascites. Will consult interventional radiology diagnostic and therapeutic paracentesis.
Altered mental status likely multifactorial and due to hepatic encephalopathy.
Ammonia level elevated up to 108.
Cirrhosis by imaging.
Untreated hepatitis C.
Ultrasound of the abdomen with minimal nonpalpable ascites.
CT scan imaging consistent with cirrhotic liver.
Lactulose resumed. Titrate to 2-3 bowel movements a day
Has been off standing dose of diuretics
Severe anasarca
Volume overload and been iatrogenic given requirement for IV fluids with severe metabolic acidosis which is currently improved
Lasix 40 mg IV provided on 04/28, 04/29.
Monitor volume status closely
Consider to resume daily Lasix, although patient declined in the past.
Hypocalcemia replete, follow ionized calcium
Hypokalemia replete.
Hypoalbuminemia
Initiated on Ensure
Right great toe ulcer with exposed bone. MRI concerning for distal tuft osteomyelitis.
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
-s/p antibiotics for 48-72 hours post op (ancef)- DCed on 04/11/24
-Heel WBAT to RLE is acceptable
Continue wound care per podiatry.
Recommended to resume antibiotics, will start Ancef.
Monitor closely
Currently no indication for surgical intervention.
Substance abuse with history of IVDA.
Admission Urine drug screen positive for multiple substances.
Repeated urine drug screen on 04/07 cleared and positive only for Suboxone
Continue Suboxone sublingual- intermittently refusing it.
Patient declined Suboxone on multiple occasions
Discussed with psychiatry.
Plan is to wean off Suboxone slowly.
Continue Neurontin
Initiated on Remeron
Seroquel discontinued
Acute urinary retention.
Resolved
DVT prophylaxis�subcu Lovenox
Full code
Anticipated Discharge: 24 - 48 hours
Subjective/Interval History
-
Date of Service: May 03, 2024
Objective Data
-
Vital Signs:
Vital Signs
Temp Pulse Resp BP Pulse Ox
97.3 F 87 14 134/102 98
05/03/24 07:30 05/03/24 07:30 05/03/24 07:30 05/03/24 07:30 05/03/24 07:30
I&O
05/02/24 05/03/24 05/04/24
06:59 06:59 06:59
Intake Total 1180 / 1180 1440 / 1440
Balance 1180 / 1180 1440 / 1440
Physical Exam
-
General: Well Developed, No Apparent Distress, Comfortable and Appears Chronically Ill
HEENT: Normocephalic, Atraumatic and Moist Mucous Membranes
Respiratory: Non Labored Respirations; Negative Accessory Resp Muscle Use
Cardiac: Regular Rhythm and S1/S2; Negative Murmur, Rub or Gallop
GI: Other (Mild distention with hypoactive bowel sounds)
Rectal: Deferred by Provider
Musculoskeletal: No Clubbing, No Cyanosis, Edema, Right Lower Extrem, Edema, Left Lower Extrem and Other (RUE amputation with ulcer covered with bandage)
Skin: Negative Rash
Neuro: Awake and Alert; Negative Oriented (Disoriented)
Psych: Negative Intact Judgement/Insight
[2024-05-03] MEDS: LOVENOX 40 MG SC (17:09)
[2024-05-03] MEDS: MIRALAX 17 GRAMS PO (21:59)
[2024-05-03] MEDS: DUPHALAC/CHRONULAC 20 GRAMS PO (22:01)
[2024-05-03] MEDS: REMERON 7.5 MG PO (22:02)
[2024-05-03] MEDS: MELATONIN 5 MG PO (22:03)
[2024-05-03 23:25] VITALS: BP 150/112
[2024-05-04] MEDS: FIRVANQ 125 MG PO ×4 (00:57→18:23)
[2024-05-04] MEDS: ANCEF 10 IV ×3 (01:00→18:23)
--- NOTE | 2024-05-04 04:39 | DOWNTIME ---
There was a SCADA Access Client [employer] Straight[employer] Downtime on 05/04/2024 from 0100 to 05/04/2024 at 0350. Downtime documentation of patient's care, including medication administrations, has been reconciled in the electronic record per guidelines. Refer to the
patient's paper chart under the miscellaneous tab to see printed paper medication records and downtime forms.
[2024-05-04 06:00] VITALS: BMI 27.1
[2024-05-04] MEDS: SOLU-MEDROL PF 40 MG IV ×2 (06:08→15:00)
[2024-05-04 08:03] VITALS: BP 137/95
--- NOTE | 2024-05-04 09:03 | CM ---
Addendum entered by Shy Cali RN 05/04/24 16:24:
Per Jazmin, bed to be delivered between 7p and 9p, so request transport around 9pm. stock transfer clerk and RN updated. Patient and father updated at bedside.
Addendum entered by Shy Cali RN 05/04/24 15:33:
Received text that the patient's bed will not be delivered until 7pm. Left two messages for Jazmin to see if patient can be discharged tonight after 7pm or does discharge have to wait until tomorrow.
Addendum entered by Shy Cali RN 05/04/24 12:18:
Call report to 3rd floor: [phone]
Fax report to: [phone]
Addendum entered by Shy Cali RN 05/04/24 11:42:
Received call from Sweetie with [facility] with approval for [facility].
Skill level (05/04-05/10); NRD 05/10 with Alissa ([phone])(fax: [phone]); Auth # [id number]
Plan: Discharge to [facility] [place]
Medical necessity and transport forms on chart.
Addendum entered by Shy Cali RN 05/04/24 10:44:
Received voice message from Alissa with [facility] requesting additional information below. Information faxed for one time contract.
[facility] contact is Jazmin
[facility] NPI# [id number]
[facility] Tax ID # [id number]
Jazmin's fax#
Original Note:
Reviewed the chart notes. Patient for paracentesis today. Clinicals faxed yesterday to [facility] for auth for [facility]. Awaiting decision. A one time contract was completed with prior authorization, but the credit representative that
NALDO spoke with stated it would need to be redone. continues to be available to patient/family and is monitoring medical plan for needs at discharge.
Plan: Discharge to [facility] once contract completed and patient medically stable for transfer. Faxed list of responses from referral sent.
.+
+.
[2024-05-04] MEDS: MIRALAX PO ×2 (10:12→20:29)
[2024-05-04] MEDS: NEURONTIN 100 MG PO ×2 (10:12→16:53)
[2024-05-04] MEDS: DUPHALAC/CHRONULAC PO ×2 (10:12→20:29)
[2024-05-04] MEDS: SUBUTEX SL ×2 (10:12→10:19)
[2024-05-04] MEDS: THIAMINE INJECTION 100 MG IV (10:12)
[2024-05-04] MEDS: PROTONIX 40 MG PO (10:12)
[2024-05-04] MEDS: LIDOCAINE 4% PATCH TOPICAL (10:15)
[2024-05-04 10:45] VITALS: BP 133/110; BP_SYST 80
[2024-05-04 11:44] LABS: Body Fluid Albumin < 1.0 g/dl; Body Fluid Protein < 2.0 g/dl
[2024-05-04 12:52] LABS: Body Fluid WBC 100 /CUMM
--- NOTE | 2024-05-04 12:55 | W.DS.TRANS ---
DC Summary - Cytology Supervisor
-
Discharge Instructions:
Discharge Diagnosis/Procedures Partial small bowel obstruction secondary to
Crohn's disease inflammatory stricture
Sepsis ruled out
Cirrhosis by records and imaging
Hepatitis C untreated.
Chronic normocytic anemia
Hypoalbuminemia
Multisubstance abuse opiate use disorder with
history of IVDA on Suboxone JEWEL SAWYER.
Acute urinary retention
Right foot/great toe ulcer
R upper arm amp with small dermal ulcer.
R ischial stage 2 small pressure injury.
Sacral/buttocks linear discolored stage 1 and 2
pressure injuries.
Hypokalemia
Hypocalcemia
Severe hypoalbuminemia
Diet Regular
Instructions:
Stand-Alone Forms:
Changes to Home Medications: Yes
Discharge Medications:
DC Medications w/original date entered in [employer]
ascorbic acid (vitamin C) 500 mg tablet (Vitamin C) 500 mg PO DAILY Supplement 03/30/24
lidocaine 4 % topical patch 1 patch topical DAILY left shoulder 03/30/24
mirtazapine 7.5 mg tablet 7.5 mg PO HS Depression 03/30/24
pantoprazole 40 mg tablet,delayed release 40 mg PO DAILY Gastrointestinal Issue 03/30/24
potassium chloride 20 mEq tablet,extended release 20 meq PO DAILY Electrolyte Repletion 03/30/24
spironolactone 50 mg tablet (Aldactone) 50 mg PO DAILY Fluid Retention/Swelling 03/30/24
thiamine HCl (vitamin B1) 100 mg tablet 100 mg PO DAILY Supplement 03/30/24
zinc sulfate 50 mg zinc (220 mg) capsule 50 mg PO DAILY Supplement 03/30/24
buprenorphine HCl 2 mg sublingual tablet 2 mg sublingual BID@0800,1600 #20 tabs 05/04/24
cephalexin 500 mg capsule 500 mg PO BID 7 days #14 caps 05/04/24
furosemide 20 mg tablet (Lasix) 20 mg PO DAILY Fluid Retention/Swelling #0 tabs 05/04/24
gabapentin 100 mg capsule 100 mg PO TID #90 caps 05/04/24
lactulose 20 gram/30 mL oral solution 20 g (30 mL) PO BID #1,500 mL 05/04/24
melatonin 5 mg tablet 5 mg PO HS #30 tabs 05/04/24
prednisone 50 mg tablet 50 mg PO DAILY Anti-Inflammatory #0 tabs 05/04/24
vancomycin 50 mg/mL oral solution 125 mg (2.5 mL) PO Q6 #80 mL 05/04/24
Home Medication Changes
Steroid taper for Crohn's flare
Suboxone dose reduced
Antibiotics for right toe infection.
Oral vancomycin for Cdiff
Pending Results: No
[2024-05-04 14:58] LABS: Body Fluid Second Tech CMB
[2024-05-04 15:30] VITALS: BP 141/105
[2024-05-04] MEDS: SUBUTEX 2 MG SL (16:53)
[2024-05-04] MEDS: MYLICON 80 MG PO (16:53)
[2024-05-04] MEDS: ANESTHETIC LOZENGE 1 LOZENGE PO (17:12)
[2024-05-04] MEDS: LOVENOX 40 MG SC (18:23)
--- NOTE | 2024-05-04 19:43 | PTCARENOTE ---
Called [facility] - quin Sin RN report.
== END 2024-05-04 21:07 | DRG 981 ==
LOC: 2 NORTH 02:00
PROVIDERS: Hospitalist; Internal Medicine; Nurse Practitioner Adult Health; Nurse Practitioner Family; Nurse Practitioner Gerontology; Physician Assistant; Physician Assistant Medical; Radiology Diagnostic Radiology; Radiology Neuroradiology; Radiology Vascular & Interventional Radiology; Registered Nurse; Student in an Organized Health Care Education/Training Program; Surgery; ADMITTING PHYSICIAN Internal Medicine; ATTENDING PHYSICIAN Internal Medicine; CONSULT PHYSICIAN Internal Medicine Gastroenterology; CONSULT PHYSICIAN Internal Medicine Infectious Disease; CONSULT PHYSICIAN Physical Medicine & Rehabilitation; CONSULT PHYSICIAN Student in an Organized Health Care Education/Training Program; EMERGENCY PHYSICIAN Student in an Organized Health Care Education/Training Program; OTHER PHYSICIAN Surgery
PROC: 02H633Z Insertion of Infusion Device into Right Atrium, Percutaneous Approach (ICD-10-PCS; 2024-03-31)
PROC: 02WY33Z Revision of Infusion Device in Great Vessel, Percutaneous Approach (ICD-10-PCS; 2024-04-01)
PROC: 0D9670Z Drainage of Stomach with Drainage Device, Via Natural or Artificial Opening (ICD-10-PCS; 2024-04-01)
PROC: 3E0336Z Introduction of Nutritional Substance into Peripheral Vein, Percutaneous Approach (ICD-10-PCS; 2024-04-02)
PROC: 0Y6P0Z3 Detachment at Right 1st Toe, Low, Open Approach (ICD-10-PCS; 2024-04-08)
PROC: 0W9G3ZZ Drainage of Peritoneal Cavity, Percutaneous Approach (ICD-10-PCS; 2024-05-04)
DX: K50.012 Crohn's disease of small intestine with intestinal obstruction (principal); E43 Unspecified severe protein-calorie malnutrition; F11.20 Opioid dependence, uncomplicated; R18.8 Other ascites; L97.516 Non-pressure chronic ulcer of other part of right foot with bone involvement without evidence of necrosis; M86.9 Osteomyelitis, unspecified; K21.9 Gastro-esophageal reflux disease without esophagitis; K74.69 Other cirrhosis of liver; B18.2 Chronic viral hepatitis C; F31.9 Bipolar disorder, unspecified; D64.9 Anemia, unspecified; R33.8 Other retention of urine; L89.152 Pressure ulcer of sacral region, stage 2; L89.212 Pressure ulcer of right hip, stage 2; E83.51 Hypocalcemia; E87.6 Hypokalemia; E88.09 Other disorders of plasma-protein metabolism, not elsewhere classified; K76.82 Hepatic encephalopathy; F17.200 Nicotine dependence, unspecified, uncomplicated; G62.9 Polyneuropathy, unspecified; K76.0 Fatty (change of) liver, not elsewhere classified; Z11.52 Encounter for screening for COVID-19; Z79.52 Long term (current) use of systemic steroids; Z79.899 Other long term (current) drug therapy; Z89.221 Acquired absence of right upper limb above elbow; Z68.25 Body mass index [BMI] 25.0-25.9, adult
CPT/HCPCS: 88304; 88305; 88311; 49083; 70450; 71045; 73630; 73723; 74018; 74022; 74176; 74177; 76705; 80048; 80053; 80306; 80307; 81003; 81015; 82042; 82140; 82330; 82728; 82962; 83036; 83540; 83550; 83605; 83690; 83735; 83993; 84100; 84134; 84157; 84478; 84703; 85025; 85027; 85610; 85652; 86140; 86480; 86704; 86706; 86708; 86709; 86803; 87015; 87040; 87045; 87046; 87070; 87205; 87324; 87340; 87389; 87427; 87449; 87522; 87811; 89051; 96361; 96365; 96375; 96376; 97163; 97164; 97167; 97530; 97535; 99285; 99406; A9575; J2997; P9045; Q9967

== ENCOUNTER 2024-05-11 02:26 | Inpatient (IN) | payer OTHER, SELFPAY ==
[2024-05-10 18:40] VITALS: BMI 23.7
[2024-05-10 18:44] VITALS: BP 98/79
--- NOTE | 2024-05-10 18:48 | ED.GENMED ---
History of Present Illness
General
Chief Complaint: Abdominal Pain
Source: patient
Time Seen by Provider: 05/10/24 18:34
History of Present Illness
History of Present Illness:
34-year-old female presents to the emergency room complaining of abdominal pain. Patient has a complicated medical history including hepatitis, cirrhosis, inflammatory bowel disease, opiate use disorder. She was recently discharged from this
hospital after a prolonged hospitalization. The initial reason for hospitalization was a partial bowel obstruction ultimately decided to be the presentation of inflammatory bowel disease. She also had hepatic encephalopathy, amputation of part of
her great toe as the issues during the hospitalization. Patient states she is compliant with her lactulose. She began having abdominal pain throughout the course the day today. She feels like her abdomen is distended. She did undergo a
paracentesis prior to discharge with cell counts that were thought to be normal. No vomiting today.
Past History
Past History
ED Past Medical History: Renal failure, Psychiatric and Other (Hepatitis C, Crohn's disease, liver disease)
ED Past Surgical History: Tonsilectomy and Other (Partial right upper extremity amputation)
Social History
Tobacco: Smoker
Alcohol: None
Drug: Former user and IVDA
Personal: Single
Living: with family
Phy Exam
Physical Exam
Physical Exam:
General: Awake, Alert, Oriented X3. Appears chronically ill. No distress
Vitals: unremarkable
Head: Atraumatic
Eyes: Pupils equal, EOMI
Throat: Airway intact, no exudates
Neck: Trachea midline
Lungs: Clear and equal b/l
Heart: Regular rate, no murmurs
Abd: Soft, distended, diffusely tender, No pulsatile mass
Neuro: Grossly nonfocal
Skin: Warm, dry, no rash
Extremities: Right upper extremity above the elbow amputation. Pulses equal b/l, no edema
Course
Orders/Labs/Results
Orders:
Orders
05/10/24 18:45
Iohexol [Omnipaque] See Protocol PO NOW STA
05/10/24 18:46
Urinalysis Reflex To Culture Urgent
CR Chest Single View Urgent
Reason For Exam: chest pain, cough
05/10/24 18:47
Ketorolac [Toradol] 15 mg IV NOW STA
05/10/24 19:30
COVID-19 Antigen Urgent
Source: Nasal Swab
05/10/24 21:47
CT Abd/pel (oral only)-DH Only Urgent
Comment:
Reason For Exam: abd pain
05/10/24 23:32
HYDROmorphone [Dilaudid] 1 mg IV NOW STA
Ondansetron Injectable [Zofran] 4 mg IV NOW STA
05/10/24 23:33
Lactated Ringers [Lr] 500 ml IV BOLUS
05/10/24 23:34
CR Chest Portable - 1 View Urgent
Comment:
Reason For Exam: line placement
Reason Study Needs to be Portable: Patient Unstable
05/10/24 23:44
Ammonia Urgent
Complete Blood Count/With Diff Urgent
Comprehensive Metabolic Panel Urgent
Lactic Acid Q4H
Comment: CANCEL 2nd LACTIC ACID IF 1st LACTIC ACID IS LESS THAN 2
Lipase Urgent
Magnesium Urgent
Prothrombin Time Urgent
05/11/24 01:47
Urine Drug Abuse Screen Urgent
05/11/24 02:03
Admit/Transfer Patient As Directed
Co-Sign Provider:
Level of Care: Inpatient admission
Assign to:: Telemetry
Physician / Group: Sean
Diagnosis: SBO
Reason for Telemetry: Arrhythmia
Date to Stop Telemetry: 05/14/24
Time to Stop Telemetry: 11:00
Reason for Hospitalization: SBO
Expected length of stay greater than two midnights?: Yes
ELOS- Estimated Length of Stay in days: 4
I certify the patient meets the requirements for IP care: Yes
PRN Pain Medication Management As Directed
May give lesser potent ordered pain med per pt: Yes
preference::
Protocol:: Medication orders for pain may be administered in a
manner that supports deferring to patient preference
when the pt is:
- Requesting an ordered lesser potent pain medication.
Least to most potent pain medications are defined
as: acetaminophen < NSAID < tramadol < opioids
(morphine, oxycodone, hydromorphone).
- Requesting a lesser dose of the same medication IF
ORDERED.
- Requesting a less intrusive route of administration
if both routes are prescribed by the provider (PO <
IV).
05/11/24 02:05
Code Status As Directed
Resuscitation Status: Full Code
05/11/24 02:23
Magnesium Sulfate 2 Gram/50 ml [Magnesium Sulfate] 2 gram in 50 ml IV NOW
05/11/24 02:46
Ketorolac [Toradol] 10 mg IV Q8HPRN PRN
MethylPREDNISolone PF [Solu-Medrol Pf] 20 mg IV Q8H
Ondansetron Injectable [Zofran] 4 mg IV Q6HPRN PRN
05/11/24 02:46
Consult Notification Routine
Specialty to Notify: Gastroenterology
Date consulting provider notified: 05/11/24
Time consulting provider notified: 07:39
Notified:: Provider
Consult Notification Routine
Specialty to Notify: Surgical
Date consulting provider notified: 05/11/24
Time consulting provider notified: 07:41
Notified:: Provider
GASTROINTESTINAL CONSULT Routine
Consulting Provider: Ochoa Seals
Was physician already notified: No
Reason for consult: Crohn's / SBO / Ascites / Cirrhosis / Hep C
NUTRITIONAL SUPPORT TEAM Routine
SURGICAL CONSULT Routine
Consulting Provider: Nazario Godwin
Was physician already notified: No
Reason for consult: Recurrent SBO / Crohn's
WOUND/OSTOMY CONSULT Routine
Reason for Consult: R Foot Wound
Activity As Directed
Activity Level: Ambulate
With Assistance
I/O [Intake/ Output] As Directed
Frequency: Per unit guidelines
Vital Signs As Directed
Frequency: Per unit guidelines
Weight As Directed
Frequency: Daily
Oxygen Therapy [O2 Therapy] [RESP] Routine
Titrate/Wean O2 to maintain O2 sat greater than (%): 94
Ot Eval And Treat Routine
PT Consult [Pt Eval And Treat] Routine
Activity Level: Ambulate
With Assistance
DX Deep Vein Thrombosis Video Routine
05/11/24 04:38
Complete Blood Count/No Diff IN AM
05/11/24 Breakfast
NPO
Allow oral meds: Yes
Allow clear liquids: Sips of Clears
05/11/24 08:00
Buprenorphine [Subutex] 2 mg SL BID@0800,1600
Furosemide [Lasix] 20 mg IV BID AT 0800,1600
05/11/24 18:00
Enoxaparin Sodium [Lovenox] 40 mg SC QPM
05/14/24 11:00
DC Protocol for Telemetry ONCE
Abnormal Lab Results
05/10/24
23:44
WBC 14.3 H 10^3/uL
(4.8-10.8)
RBC 3.62 L 10^6/uL
(4.20-5.40)
Hgb 10.0 L g/dL
(12.0-16.0)
Hct 29.4 L %
(37.0-47.0)
RDW 20.5 H %
(11.5-14.5)
MPV 10.7 H fL
(7.4-10.4)
Abs Immat Gran (auto) 0.1 H 10^3/uL
(0-0.05)
Absolute Neuts (auto) 12.5 H 10^3/uL
(1.4-6.5)
Absolute Lymphs (auto) 0.9 L 10^3/uL
(1.2-3.4)
Absolute Monos (auto) 0.7 H 10^3/uL
(0.1-0.6)
Immature Gran % 0.9 H %
(0-0.5)
Neutrophils % 87.3 H %
(42.2-75.2)
Lymphocytes % 6.4 L %
(20.5-51.1)
PT 15.5 H Sec
(11.4-14.6)
Sodium 130 L mmol/L
(135-145)
Creatinine 0.4 L mg/dL
(0.6-1.0)
Calcium 7.1 L mg/dl
(8.4-10.2)
Magnesium 1.5 L mg/dl
(1.6-2.3)
Alkaline Phosphatase 168 H U/L
(38-126)
Total Protein 5.1 L g/dl
(6.3-8.2)
Albumin 1.8 L g/dl
(3.5-5.0)
Lipase 17 L U/L
(23-300)
05/10/24 23:44
05/10/24 23:44
Vital Signs
Initial and Last Documented VS:
Initial Vital Signs
Temp Pulse Resp BP Pulse Ox
100.1 F 123 20 98/79 100
05/10/24 18:44 05/10/24 18:44 05/10/24 18:44 05/10/24 18:44 05/10/24 18:44
Last Documented Vital Signs
Temp Pulse Resp BP Pulse Ox
98.7 F 115 12 114/90 98
05/10/24 23:45 05/11/24 19:00 05/11/24 19:00 05/11/24 18:42 05/11/24 16:00
Procedures
Central Line
Left Subclavian:
Indication for procedure:: no peripheral iv access
Consent form signed: No
If no, reason: Emergency procedure (verbal consent after detailed description of possible complications including infection, bleeding, pt)
Anesthesia: 1% Lidocaine
Central line lumen: triple
Number of attempts: 1
Central line complications: none
Sterile dressing applied?: Yes
X-ray: shows good placement
MDM/Problems Addressed
Differential Diagnosis Includes:
sbo, ascites, ileus,
MDM/Problems Addressed:
Patient presents with abdominal distention, abdominal pain, inability tolerate oral intake as well as some nausea vomiting. Imaging shows small bowel dilation questionable small bowel obstruction. CTA initially done with only oral contrast as the
patient has no peripheral IV access despite multiple attempts by IV team with ultrasound. Given the CT findings decision was made to proceed with central line access to obtain lab's. Patient admitted to the hospitalist service for further
management by GI and general surgery.
Chronic conditions affecting care: Other (Suspected inflammatory bowel disease, polysubstance abuse,)
*Radiology
Radiology exam reviewed: radiology read reviewed
*Pulse Oximetry
Patient hypoxic: no
*Synthetic Cloth Binding Cutter Interpretation
Rate: tachycardiac
Interpretation: normal
Rhythm: sinus
*Critical Care Note
Total Time (30-74mins, 75-104mins- exclusive of procedures): 40 min
comment:
Critical care statement: A total of 40 minutes of critical care time was provided for this patient. This includes management of unstable vital signs, evaluation of the patient at bedside, reviewing the patient's pertinent medical records, discussion
with consultants, review of old EKGs and review of pertinent medical records. This time with separate from time utilized to perform the aforementioned documented procedures
ED Attending Note
-
Portions of this chart may have been created with voice recognition software.� Occasional wrong word or��sound alike� substitutions may have occurred due to the inherent limitations of voice recognition software.
Discharge Plan
Departure
Patient Disposition: Admit
Presentation/result/management discussed w/ accepting MD/DO: Hospitalist
Condition: Fair
Discharge Problem:
Abdominal pain, Small bowel obstruction
Interventions
Interventions:
*Risk Screen - Suicide Last Done: 05/10/24 18:52
*General Assessment Last Done: 05/10/24 20:01
*Neglect/Abuse Screening Last Done: 05/10/24 18:52
ED- Fall Risk Assessment Last Done: 05/11/24 20:37
*ED COVID-19 Vaccine History Last Done: 05/11/24 05:51
*Nursing Disposition Last Done: 05/11/24 20:37
VC-Vimxue-Ypthhhdtoa Assessment Last Done: 05/10/24 20:04
Discharge Date and Time
Discharge Date/Time: 05/11/24 20:38
[2024-05-10] MEDS: OMNIPAQUE 50 ML PO (18:56)
[2024-05-10 19:54] LABS: COVID-19 Antigen Negative (Negative)
--- NOTE | 2024-05-10 21:55 | VATNOTE ---
ATTEMPTED X3 TO INSERT A LUE MIDLINE FOR IV ACCESS AND ORDERED LAB DRAWS. ABLE TO CANNULATE VESSEL X3 WITH EXCELLENT BLOOD FLOW BUT UNABLE TO THREAD WIRES INTO VESSEL. ALL WIRES COMPLETELY CORKSCREWED. A SECOND VAT ASSOCIATE UNABLE TO ESTABLISH A
PERIPHERAL SITE WELL. DR BLAKELY AWARE OF INTERVENTIONS AND OUTCOMES WELL PCN. PT TOLERATED PROCEUDRAL ATTEMPTS WELL.
[2024-05-10 23:45] VITALS: BP 110/62
[2024-05-10 23:52] LABS: % Basophils 0.2 % (0-2); % Immature Granulocytes 0.9 % (0-0.5); % Lymphocytes 6.4 % (20.5-51.1); % Monocytes 5.2 % (1.7-9.3); % Neutrophils 87.3 % (42.2-75.2); Absolute Immature Granulocytes 0.1 10^3/uL (0-0.05); Absolute Lymphocytes 0.9 10^3/uL (1.2-3.4); Absolute Monocytes 0.7 10^3/uL (0.1-0.6); Absolute Neutrophils 12.5 10^3/uL (1.4-6.5); Hematocrit 29.4 % (37.0-47.0); Mean Corpuscular Hgb 27.6 pg (27.0-31.0); Mean Corpuscular Volume 81.2 fL (81.0-99.0); Mean Platelet Volume 10.7 fL (7.4-10.4); Nucleated Red Blood Cells % 0 %; Platelet Count 209 10^3/uL (130-400); Red Blood Cell Count 3.62 10^6/uL (4.20-5.40); Red Cell Dist. Width 20.5 % (11.5-14.5); White Blood Cell Count 14.3 10^3/uL (4.8-10.8)
[2024-05-10] MEDS: LR 500 IV (23:56)
[2024-05-10] MEDS: DILAUDID 1 MG IV (23:57)
[2024-05-10] MEDS: ZOFRAN 4 MG IV (23:57)
[2024-05-11] VITALS (16 sets, daily range): BP systolic 80–114; BP diastolic 67–90; PULSE 116–146; BMI 23.7
[2024-05-11 00:05] LABS: Ammonia 17 umol/L (9-30); Lactic Acid 1.1 mmol/L (0.7-2.0)
[2024-05-11 00:06] LABS: ALT (SGPT) 18 U/L (0-35); AST (SGOT) 29 U/L (14-36); Albumin 1.8 g/dl (3.5-5.0); Alkaline Phosphatase 168 U/L (38-126); Blood Urea Nitrogen 13 mg/dl (7-17); Calcium 7.1 mg/dl (8.4-10.2); Carbon Dioxide 27 mmol/L (22-30); Chloride 99 mmol/L (98-107); Estimated Creatinine Clearance 119 ml/min; Glucose 87 mg/dl (70-99); Lipase 17 U/L (23-300); Magnesium 1.5 mg/dl (1.6-2.3); Potassium 4.2 mmol/L (3.5-5.1); Sodium 130 mmol/L (135-145); Total Bilirubin 0.6 mg/dl (0.2-1.3); Total Protein 5.1 g/dl (6.3-8.2); eGFR > 60.00
[2024-05-11 00:10] LABS: PT 15.5 Sec (11.4-14.6)
--- NOTE | 2024-05-11 02:15 | HPS.HSE ---
Family Physician
-
Family Physician: * NONE
Chief Complaint
-
Abd Pain, SOB
History of Present Illness
Patient is a 34y F with PMH significant for IVDA, untreated Hep C / cirrhosis and recent long and complicated hospital stay primarily for SBO / Crohn's disease who presents to ED complaining of abdominal pain and SOB. Patient was recently
admitted from 04/01 - 05/04 for SBO thought to be secondary to inflammation from Crohn's enteritis. Her hospital stay was complicated by development of osteomyelitis of the R great toe requiring amputation and IV abx.
She also had pancolitis and suspected CDiff and was treated with oral Vancomycin.
She developed hepatic encephalopathy while off of lactulose during that hospital stay as well.
Patient was discharged to rehab facility on 05/04.
Patient states that she was feeling well until earlier today when she began to feel abdominal pain / distention and shortness of breath. Patient states that her last bowel movement was about 2 days ago.
She became lethargic as well and was transported to the ED for further evaluation and treatment.
Medical History
Past Medical History
Past Medical History: Reports Other
Additional Past Medical History:
IVDA
Untreated Hep C
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
Crohn's Disease
Anemia of Chronic Disease
Severe Malnutrition
Osteomyelitis
Skin Breakdown / Ulcerations
Past Surgical History: Reports Other
Additional Past Surgical History:
RUE Amputation
R Hallux Amputation
Social History
Tobacco: Former Smoker
Alcohol: None
Drug: Other (History of multiple substance abuse. Patient denies any drug use since recent discharge.)
Family History
Family History: Not pertinent
Allergies / Home Medications
Allergies reflects when Allergies were last updated in [facility].
Home Medications with original date entered in [facility]
Allergy/Medication List:
Allergies
Allergy/AdvReac Type Severity Reaction Status Date / Time
No Known Allergies Allergy Verified 03/31/24 20:28
Home Medications
ascorbic acid (vitamin C) 500 mg tablet (Vitamin C) 500 mg PO DAILY Supplement 03/30/24
lidocaine 4 % topical patch 1 patch topical DAILY left shoulder 03/30/24
pantoprazole 40 mg tablet,delayed release 40 mg PO DAILY Gastrointestinal Issue 03/30/24
potassium chloride 20 mEq tablet,extended release 20 meq PO DAILY Electrolyte Repletion 03/30/24
spironolactone 50 mg tablet (Aldactone) 50 mg PO DAILY Fluid Retention/Swelling 03/30/24
thiamine HCl (vitamin B1) 100 mg tablet 100 mg PO DAILY Supplement 03/30/24
zinc sulfate 50 mg zinc (220 mg) capsule 50 mg PO DAILY Supplement 03/30/24
buprenorphine HCl 2 mg sublingual tablet 2 mg sublingual BID@0800,1600 #20 tabs 05/04/24
cephalexin 500 mg capsule 500 mg PO BID 7 days #14 caps 05/04/24
furosemide 20 mg tablet (Lasix) 20 mg PO DAILY Fluid Retention/Swelling #0 tabs 05/04/24
lactulose 20 gram/30 mL oral solution 20 g (30 mL) PO BID #1,500 mL 05/04/24
melatonin 5 mg tablet 5 mg PO HS #30 tabs 05/04/24
prednisone 50 mg tablet 50 mg PO DAILY Anti-Inflammatory #0 tabs 05/04/24
vancomycin 50 mg/mL oral solution 125 mg (2.5 mL) PO Q6 #80 mL 05/04/24
bisacodyl 10 mg rectal suppository (Dulcolax (bisacodyl)) 10 mg WA DAILYPRN PRN if mom is ineffective 05/10/24
gabapentin 100 mg capsule 100 mg PO Q8H 05/10/24
magnesium hydroxide 400 mg/5 mL oral suspension (Milk of Magnesia) 30 ml PO DAILYPRN PRN if no bm x 3 days 05/10/24
mirtazapine 15 mg tablet 15 mg PO HS 05/10/24
sodium phosphates 19 gram-7 gram/118 mL enema (Fleet Enema) 118 ml WA DAILYPRN PRN if suppository is ineffective 05/10/24
Review of Systems
-
History Source: Patient
A 12 point ROS was completed and negative except as noted: Yes
Constitutional: Reports Fatigue; Denies Fever or Chills
Respiratory: Reports Trouble Breathing; Denies Cough
Cardiac: Denies Chest Pain or Palpitations
Abdomen/GI: Reports Abdominal Pain and Nausea; Denies Vomiting, Diarrhea, Constipated or Anorexia
: Denies Dysuria or Frequency
Neurological: Denies Dizzy or Headache
Psych: Reports Anxiety; Denies Depression
Physical Exam
Vital Signs
Vital Signs
Temp Pulse Resp BP Pulse Ox
98.7 F 117 17 111/86 96
05/10/24 23:45 05/11/24 02:00 05/11/24 02:00 05/11/24 00:00 05/11/24 00:00
Physical Exam
General: Other (Chronically ill-appearing 34y F is lethargic but will repond / answer questions when stimulated. Restless / in mild distress at times.)
HEENT: PERRLA and Other (Dry MM. Neck supple.)
Respiratory: Other (Decreased at bases - otherwise clear. Poor inspiration / shallow respirations.)
Cardiac: S1/S2 and Tachycardia; No Murmur
GI: Other (Tense, firm abdomen. Diffusely tender. Diminshed bowel sounds.)
Musculoskeletal: No Clubbing, No Cyanosis and Other (3+ pitting edema b/l LEs. s/p amputation at R mid-humerus. Amputation R 1st toe.)
Neuro: Other (Lethargic but responds to voice. Does not open eyes. Does not answer some questions.)
Laboratory Results
-
05/10/24 23:44
05/10/24 23:44
Laboratory Results
PT 15.5 Sec (11.4-14.6) H 05/10/24 23:44
INR 1.20 05/10/24 23:44
Lactic Acid Cancelled 05/11/24 03:45
Total Bilirubin 0.6 mg/dl (0.2-1.3) 05/10/24 23:44
AST 29 U/L (14-36) 05/10/24 23:44
ALT 18 U/L (0-35) 05/10/24 23:44
Alkaline Phosphatase 168 U/L (38-126) H 05/10/24 23:44
Lipase 17 U/L (23-300) L 05/10/24 23:44
Impression/Plan
-
A/P: Patient is a 34y F with PMH significant for IVDA, untreated Hep C and cirrhosis with recent complicated hospital stay for Crohn's / SBO who presents to ED complaining of SOB, abdominal pain and distention.
SBO - Recurrent
Crohn's Disease
- Admit for further evaluation and treatment.
- Markedly dilated bowel loops on CT scan - increased from prior.
- NG placed in the ED for decompression.
- NPO, follow NG output. Monitor for improvement in abdominal exam, etc.
- Lactate level is normal.
- GI and Surgery evaluations for additional recommendations.
- For now, will return to IV steroid regimen for Crohn's inflammation - given recurrent SBO.
Untreated Hep C
Cirrhosis with Ascites
Hyponatremia
- Patient appears grossly volume overloaded with peripheral edema, ascites on exam and CT, etc.
- IV Lasix BID for now.
- Holding PO meds acutely as noted above.
- Follow I/Os, daily weights, etc.
- Follow for improvement in mild hyponatremia with diuresis.
- GI eval as noted above.
- Consider IR for repeat paracentesis if needed (last 05/04 for 1000cc).
R 1st Toe Osteomyelitis
- s/p amputation. Was discharged on Keflex - today would be Day #7.
- Observe off of further abx for now.
- Wound Care for local care recommendations.
CDiff Colitis
- Decreased diarrhea. Colitis appears improved (but not fully resolved) by CT scan.
- Scheduled to complete Vancomycin regimen after today's doses.
- Will hold for now given SBO / NG decompression / etc.
- Follow for any recurrent diarrhea, fever, leukocytosis, etc.
Severe Protein Calorie Malnutrition
Hypomagnesemia
- Severe malnutrition secondary to IVDA, cirrhosis, etc.
- Nutrition evaluation / support.
- Was on TPN for a time during prior hospital stay.
- Monitor and replace electrolytes as needed.
Skin Breakdown
- Multiple areas of skin breakdown including stage II R ischial ulcer, buttocks ulcers and R foot wound / surgical site.
- Wound Care evaluation for local care.
Anxiety Disorder
Polysubstance Use Disorder
- Patient denies any interim substance abuse / use since last hospitalization. She has been in SNF since that time.
- Continue buprenorphine.
- Resume gabapentin / mirtazapine when able to take POs.
DVT Prophylaxis: Lovenox
Code Status: Full
[2024-05-11] MEDS: MAGNESIUM SULFATE 50 IV (03:08)
[2024-05-11] MEDS: ZOFRAN 4 MG IV (03:09)
[2024-05-11] MEDS: SOLU-MEDROL PF 20 MG IV ×3 (03:09→18:55)
[2024-05-11] MEDS: TORADOL 10 MG IV ×2 (03:09→19:24)
[2024-05-11 05:15] LABS: Hematocrit 27.5 % (37.0-47.0); Hemoglobin 9.6 g/dL (12.0-16.0); Mean Corp Hgb Conc. 34.9 g/dL (33.0-37.0); Mean Corpuscular Hgb 28.5 pg (27.0-31.0); Mean Corpuscular Volume 81.6 fL (81.0-99.0); Mean Platelet Volume 10.9 fL (7.4-10.4); Platelet Count 176 10^3/uL (130-400); Red Blood Cell Count 3.37 10^6/uL (4.20-5.40); Red Cell Dist. Width 21.6 % (11.5-14.5); White Blood Cell Count 12.1 10^3/uL (4.8-10.8)
[2024-05-11 05:42] LABS: ALT (SGPT) 17 U/L (0-35); AST (SGOT) 30 U/L (14-36); Albumin 1.7 g/dl (3.5-5.0); Alkaline Phosphatase 166 U/L (38-126); Blood Urea Nitrogen 13 mg/dl (7-17); Calcium 7.1 mg/dl (8.4-10.2); Carbon Dioxide 28 mmol/L (22-30); Chloride 99 mmol/L (98-107); Direct Bilirubin 0.3 mg/dl (0.0-0.4); Estimated Creatinine Clearance 119 ml/min; Glucose 89 mg/dl (70-99); Potassium 4.5 mmol/L (3.5-5.1); Sodium 130 mmol/L (135-145); Total Bilirubin 0.6 mg/dl (0.2-1.3); eGFR > 60.00
[2024-05-11] MEDS: SUBUTEX 2 MG SL ×2 (07:59→16:41)
--- NOTE | 2024-05-11 09:32 | W.PN.HOSP.TC ---
Today's Communication/Plan
-
See plan
Assessment / Plan
Assessment / Plan
Impression:
Patient is a 34y F with PMH significant for IVDA, untreated Hep C and cirrhosis with recent complicated hospital stay for Crohn's / SBO who presents to ED complaining of SOB, abdominal pain and distention.
Recurrent at least partial SBO suspected secondary to inflammatory process in patient with Crohn's disease
Crohn's disease.
Pancolitis
C. difficile antigen positive toxin negative recently treated with oral vancomycin.
Cirrhosis secondary to untreated hepatitis C.
Hepatic encephalopathy
Recurrent ascites.
Anasarca
Severe protein calorie malnutrition
Hypovolemic hyponatremia
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
Polysubstance abuse, former IVDA on Suboxone.
Anxiety disorder
Multiple skin breakdowns
Plan:
Recurrent SBO likely inflammatory in nature
CT scan with oral contrast in the ED consistent with increased from prior dilated bowel loops.
NG tube placed in ED, monitor output.
Initiated on IV steroids.
GI/surgery consultation
Continue n.p.o.
Continue IV fluids monitor electrolytes
Recently treated for pancolitis
Stool cultures negative to date.
C. difficile toxin negative antigen positive completed course of vancomycin while on systemic antibiotics for pancolitis.
Monitor closely off antibiotics.
Hypotension
Hypovolemic hyponatremia
Patient with anasarca and third spacing.
Hold Lasix and spironolactone
Follow BMP.
Cirrhosis secondary to untreated hepatitis C.
Ascites status post paracentesis 05/04 1 L with no evidence of SBP.
Monitor for reaccumulation.
Hepatic encephalopathy. Mental status stable. Ammonia level 17. Hold lactulose acutely given SBO.
Right first great toe osteomyelitis status post partial amputation.
Completed course of antibiotics
Multiple skin breakdowns.
Wound care consult
Severe Protein Calorie Malnutrition
Hypomagnesemia
- Severe malnutrition secondary to IVDA, cirrhosis, etc.
- Nutrition evaluation / support.
- Was on TPN for a time during prior hospital stay.
- Monitor and replace electrolytes as needed.
Anxiety Disorder
Polysubstance Use Disorder
- Patient denies any interim substance abuse / use since last hospitalization. She has been in SNF since that time.
- Continue buprenorphine. Will attempt to wean off.
-Reintroduce Remeron, Neurontin when able to take p.o.
- Resume gabapentin / mirtazapine when able to take POs.
DVT Prophylaxis: Lovenox
Code Status: Full
Anticipated Discharge: > 48 hours
Subjective/Interval History
-
Date of Service: May 11, 2024
Objective Data
-
Labs:
Laboratory Results
05/10/24 05/11/24
23:44 04:38
WBC 14.3 H 12.1 H
Hgb 10.0 L 9.6 L
Hct 29.4 L 27.5 L
Plt Count 209 176
PT 15.5 H
INR 1.20
Sodium 130 L 130 L
Potassium 4.2 4.5
Chloride 99 99
Carbon Dioxide 27 28
BUN 13 13
Creatinine 0.4 L 0.5 L
Glucose 87 89
Calcium 7.1 L 7.1 L
Total Bilirubin 0.6 0.6
AST 29 30
ALT 18 17
Alkaline Phosphatase 168 H 166 H
Vital Signs:
Vital Signs
Temp Pulse Resp BP Pulse Ox
98.7 F 83 15 93/72 95
05/10/24 23:45 05/11/24 08:03 05/11/24 08:03 05/11/24 08:03 05/11/24 06:42
I&O
05/10/24 05/11/24 05/12/24
06:59 06:59 06:59
Intake Total 50 / 50
Balance 50 / 50
Physical Exam
-
General: No Apparent Distress
HEENT: Normocephalic, Atraumatic and Moist Mucous Membranes
Respiratory: Clear to Auscultation
Cardiac: Regular Rhythm and S1/S2; Negative Murmur, Rub or Gallop
GI: Soft, Nontender and Other (Mild distention with hypoactive bowel sounds. NG tube in place with no output); Negative Organomegaly
Rectal: Deferred by Provider
Musculoskeletal: No Clubbing, No Cyanosis, No Edema and Other (Right arm amputation)
Skin: Negative Rash
Neuro: Awake, Alert, Oriented, AO x 3 and Nonfocal/Grossly Intact
--- NOTE | 2024-05-11 09:43 | CON.GI ---
Addendum entered and electronically signed by Ochoa Seals MD 05/11/24 16:22:
Patient seen and examined, agree with nurse practitioner note. Patient is a 34-year-old female with complicated past medical history who presents with increasing abdominal pain. There is report of Crohn's disease, though after reviewing of her
previous records this is not conclusive. Her colonoscopy did not show any biopsies consistent with Crohn's disease, and enterography did show markedly dilated small bowel with an area of inflammation, though again this is unclear. She has a
history of hepatitis C, and label of cirrhosis though her encephalopathy was on the time of also polypharmacy. On presentation now she has recurrent abdominal pain with nausea. CT scan shows massively dilated small bowel to 6 cm. She had an NG
tube temporarily that was DC'd by surgery by her report, and since it has been feeling better with much less pain. She is still having bowel movements, and was having loose stool couple of days ago though none since then. She denies any fever,
chills, bloody stools. On review of her previous colonoscopy port there is also an ulcerated area where biopsy showed adenomatous mucosa, separate from her other rectal polyp. On exam now she has high-pitched bowel sounds with distention and
tympany though no significant tenderness now.
1. Abdominal pain: With massively dilated small bowel that has been chronic. She states that prior to her hospitalization for polypharmacy and prolonged hypotension she had no GI symptoms. It is possible that her stricture is not related to
Crohn's though is resultant ischemic stricture and now prolonged partial small bowel obstruction. She is been chronically on prednisone 50 mg. Her symptoms are better after NG tube decompression though has no vomiting now and is having bowel
movements. Again this is a very complicated situation, at this point given resolution of her symptoms would hold on further workup. She has outpatient follow-up already with her stonecutter assistant at [facility] next week, though suspect would need
tertiary care evaluation as would likely need surgical intervention.
2. Hepatitis C: Na�ve to treatment, unclear if cirrhosis. There is her report of hepatic encephalopathy though this was also at the time of polypharmacy, now with essentially normal platelets and INR, no other stigmata of cirrhosis. Again, she is
following up with her primary stonecutter assistant and [facility].
Original Note:
Consultation
-
Date/Time Consultation Requested: 05/11/24229
Date/Time Consultation Performed: 05/11/24939
Requesting Provider: Nahun Estrada DO
Performing Provider: OBEY Gutierrez, Matias Seals MD
Reason for Consultation: abnormal imaging, abdominal pain
Medical History
Chief Complaint / HPI
Chief Complaint: abdominal pain
History of Present Illness:
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
fascitis/compartment syndrome, SBO, ? hypoxic brain injury with drug overdose, and recently diagnosed Crohn's disease (not on any maintenance therapy- due follow up next week at [facility]), who presented to the ED from rehab facility for
abdominal pain and distention. In review with patient she had hx drug use but was well until October 2023 when she had relapse in [place] leading to arm injury. Since that time she has not been well with admission to [facility], [facility]
and now [place]. She had recent extended admission 04/01- 05/04 with multiple issues including concern for partial small bowel obstruction. She was placed on IV steroid with concern for underlying crohn disease with initial improved CRP
and discharged on taper. fecal Kristina 04/02 >3000. She had multiple other issues during admission including HE with elevated ammonia level with need for lactulose therapy, anasarca, severe hypoalbuminemia, c-diff, osteomyelitis, with partial toe
amp, + drug screen 04/02 on admission including Fentanyl and cocaine, and psych follow with wean of Suboxone.
Pt states prior to admission not eating well as did not like food at [facility]. She did eat well for a meal and developed 10 abdominal pain prompting return to . On return CT with noted right sided colitis, severe SB dilatation concern for
developing SBO with moderate stool in SB and ileus not excluded. Pt also admits to 80 lbs wt loss since October, occasional GERD, stools about every 2 days that are soft. She denies nausea, vomiting, constipation, or rectal bleeding. On admission labs
with persistent leukocytosis, hbg 10, Na 130, mag 1.5, albumin 1.8 alk phos 166 with improved INR 1.2, normal platelets.
Past Medical History
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
Hypoxic brain injury with drug overdose)
Past Surgical History: Other (right upper extremity amputation)
Social History
Tobacco: Smoker (?)
Alcohol: Former
Drug: Narcotics and IVDA
Personal: Single
Living: Prison (rehab)
Employment: Disabled
Family History
Family History: Other (no family hx crohns or IBD )
Allergies / Home Medications
Allergy/AdvReac Type Severity Reaction Status Date / Time
No Known Allergies Allergy Verified 03/31/24 20:28
�Medication �Instructions �Recorded
ascorbic acid (vitamin C) 500 mg 500 mg PO DAILY Supplement 03/30/24
tablet (Vitamin C)
lidocaine 4 % topical patch 1 patch topical DAILY left shoulder 03/30/24
pantoprazole 40 mg tablet,delayed 40 mg PO DAILY Gastrointestinal 03/30/24
release Issue
potassium chloride 20 mEq 20 meq PO DAILY Electrolyte 03/30/24
tablet,extended release Repletion
spironolactone 50 mg tablet 50 mg PO DAILY Fluid 03/30/24
(Aldactone) Retention/Swelling
thiamine HCl (vitamin B1) 100 mg 100 mg PO DAILY Supplement 03/30/24
tablet
zinc sulfate 50 mg zinc (220 mg) 50 mg PO DAILY Supplement 03/30/24
capsule
buprenorphine HCl 2 mg sublingual 2 mg sublingual BID@0800,1600 #20 05/04/24
tablet tabs
cephalexin 500 mg capsule 500 mg PO BID 7 days #14 caps 05/04/24
furosemide 20 mg tablet (Lasix) 20 mg PO DAILY Fluid 05/04/24
Retention/Swelling #0 tabs
lactulose 20 gram/30 mL oral 20 g (30 mL) PO BID #1,500 mL 05/04/24
solution
melatonin 5 mg tablet 5 mg PO HS #30 tabs 05/04/24
prednisone 50 mg tablet 50 mg PO DAILY Anti-Inflammatory 05/04/24
#0 tabs
vancomycin 50 mg/mL oral solution 125 mg (2.5 mL) PO Q6 #80 mL 05/04/24
bisacodyl 10 mg rectal suppository 10 mg CO DAILYPRN PRN if mom is 05/10/24
(Dulcolax (bisacodyl)) ineffective
gabapentin 100 mg capsule 100 mg PO Q8H 05/10/24
magnesium hydroxide 400 mg/5 mL 30 ml PO DAILYPRN PRN if no bm x 3 05/10/24
oral suspension (Milk of Magnesia) days
mirtazapine 15 mg tablet 15 mg PO HS 05/10/24
sodium phosphates 19 gram-7 118 ml CO DAILYPRN PRN if 05/10/24
gram/118 mL enema (Fleet Enema) suppository is ineffective
Review of Systems
-
History Source: Patient
Constitutional: Reports Weight Loss and Fatigue
EENT: Reports No Symptoms
Respiratory: Reports No Symptoms
Cardiac: Reports No Symptoms
Abdomen/GI: Reports Abdominal Pain and Nausea
: Reports No Symptoms
Musculoskeletal: Reports Edema
Skin: Reports Other (LE swelling )
Neurological: Reports Weakness
Endocrine: Reports No Symptoms
Hematologic/Lymphatic: Reports No Symptoms
Vital Signs
Temp Pulse Resp BP Pulse Ox
98.7 F 83 15 93/72 95
05/10/24 23:45 05/11/24 08:03 05/11/24 08:03 05/11/24 08:03 05/11/24 06:42
Physical Exam
Exam
General: Other (chronic ill appearing )
HEENT: Normocephalic and Anicteric
Cardiac: Regular Rhythm
GI: Soft, Tender (mild ) and Distended
Genito-urinary: No Costovertebral Tender
Musculoskeletal: No Clubbing and No Cyanosis
Skin: Warm and Dry
Neuro: Awake, Alert and AO x 3
Psych: Calm
Results
WBC 12.1 10^3/uL (4.8-10.8) H 05/11/24 04:38
Hgb 9.6 g/dL (12.0-16.0) L 05/11/24 04:38
Hct 27.5 % (37.0-47.0) L 05/11/24 04:38
MCV 81.6 fL (81.0-99.0) 05/11/24 04:38
Plt Count 176 10^3/uL (130-400) 05/11/24 04:38
Absolute Neuts (auto) 12.5 10^3/uL (1.4-6.5) H 05/10/24 23:44
PT 15.5 Sec (11.4-14.6) H 05/10/24 23:44
INR 1.20 05/10/24 23:44
Sodium 130 mmol/L (135-145) L 05/11/24 04:38
Potassium 4.5 mmol/L (3.5-5.1) 05/11/24 04:38
Chloride 99 mmol/L (98-107) 05/11/24 04:38
Carbon Dioxide 28 mmol/L (22-30) 05/11/24 04:38
BUN 13 mg/dl (7-17) 05/11/24 04:38
Creatinine 0.5 mg/dL (0.6-1.0) L 05/11/24 04:38
Calcium 7.1 mg/dl (8.4-10.2) L 05/11/24 04:38
Total Bilirubin 0.6 mg/dl (0.2-1.3) 05/11/24 04:38
AST 30 U/L (14-36) 05/11/24 04:38
ALT 17 U/L (0-35) 05/11/24 04:38
Alkaline Phosphatase 166 U/L (38-126) H 05/11/24 04:38
Lipase 17 U/L (23-300) L 05/10/24 23:44
Diagnostic abdominal Image Results:
05/11/24 CT Abd/pel (oral only)-DH Only Findings suggesting moderate right-sided colitis. ImprovedSevere small bowel dilatation concerning for developing small bowel obstruction. Progressed. Moderate fecal material in the small bowel as well. Ileus
not completely excluded. Moderate abdominal pelvic ascites. Progressed. Severe hepatic fatty infiltration. Stable Findings suggesting volume overload or third spacing. Progressed
05/04/24 paracentesis 1000ml removed neg SBP
05/02/24 US abdomen limited mild to moderate ascites, RUQ and RLQ
05/01/24 abd Severe gaseous distention of the bowel, overall similar in appearance to prior and may be sequelae of ongoing obstruction or adynamic ileus.
04/26/24 SBFT- pt refused to drink contrast for study
04/26/24 abd X ray Gaseous distention of small bowel limited in evaluation for obstruction without erect or decubitus view.
04/25/24 CT A/p
1. Interval increase in severe submucosal edema and circumferential wall thickening throughout nearly the entire colon consistent with a SEVERE ACUTE PANCOLITIS (possibly C. Difficile Colitis).
2. Severe distention of small bowel loops with fluid and air in the central anterior abdomen and pelvis. Diagnostic possibilities are (1) an acute gastroenteritis, (2) an adynamic ileus, or (3) a partial small bowel obstruction.
3. Small volume of abdominal and pelvic ascites.
4. Mild smooth peritoneal thickening and hyperenhancement in the pelvis suggesting ACUTE PERITONITIS.
5. SEVERE DIFFUSE HEPATIC STEATOSIS with moderate atrophy of the lateral segment of the left lobe the liver and multiple regions of hyperenhancement in the subcapsular regions of the liver (mostly in the lateral segment of the left lobe) which are
probably regions of perfusion abnormality or focal fatty sparing.
6. 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
04/18/24 abd film There is a large amount of gas in dilated loops of small bowel measuring up to 6 cm with a pattern consistent with small bowel obstruction, similar to that seen on 04/10/2024 examination
04/10/24 obstr series There are numerous gas-distended loops of bowel throughout the abdomen, slightly increased from prior and consistent with persistent obstruction.
04/02/24 abd X raySmall bowel dilatation suggesting partial obstruction on recent prior CT, likely without significant change.
03/31/24 CT a/p
1. Significant dilation of the proximal and mid small bowel, measuring up to 6.5 cm in diameter, with relative decompression of the distal small bowel and colon. Findings are suggestive of at least partial small intestinal obstruction, although
well-defined transition point is not appreciated.
2. Small amount of free fluid within the abdomen and pelvis.
3. No evidence of pneumatosis intestinalis or extraluminal air.
4. Mild nodularity of the hepatic contour, a nonspecific finding which may be seen in the setting of cirrhosis. Diffuse fatty infiltration of the liver.
01/[address] [facility] [address] SBO with multiple dilated ileal and jejunal SB loose in abdomen as well as transition point in distal ileum, circumferential wall thickening within ascending and proximal transverse colon as well as separate region within distal
transverse colon suspicious for colitis. cirrhotic liver morphology moderaate abdominopelvic ascites increased from December, anasarca
01/2024 [facility]- MRE- suboptimal with motion- wall edema and mucosal hyperenhancement extending from cecum to proximal transverse colon mucosal hyperenhancement involving interrupted segment of transverse and dsecending colon as well as rectum.
Suspicious for crohns disease, infectious etiology may be similar. dilated SB loops up to 5.3 cm without single discrete transition. Segment of SB dilation are associated with area SB narrowing. TI demonstrates mucosal enhanceement , moderate
ascites
EGD: [facility] - january 2024-no gross lesions in esophagus, diffuse mild inflammation with erythema in gastric antrum, bx taken for celiac bx no villous abnormality, moderate chronic inactive gastritis,
01/04/24- colonoscopy- mid ascending colon normal, hepatic flex normal, single ulcer distal sigmoid colon, 3 mm polhyp mid rectum bx AC, HF no pathologic changes, recto sigmoid ulcer, severely inflamed mucosa, tubular adenoma, redtaql polyp TA,
rectal bx no pathology congo red pending
flex sig [facility] December 2023 discontinuous area of non bleeding ulcerated mucosa in sigmoid at 20cm bx taken with distal sigmoid ulcer(tubular adenoma) and rectal polyp tubular adenoma congo red stain neg for amyloid considering crohn dx IV
solumedrol was given then oral prednisone and Pentasa bx sigmoid colon inflamed adenomatous mucosa, severe inflamed granulation tissue
Assessment / Plan
-
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
fascitis/compartment syndrome, SBO, ? hypoxic brain injury with drug overdose, and recently diagnosed Crohn's disease (not on any maintenance therapy- due follow up next week at [facility]), who presented to the ED from rehab facility for
abdominal pain and distention. In review with patient she had hx drug use but was well until October 2023 when she had relapse in [place] leading to arm injury. Since that time she has not been well with admission to [facility], [facility]
and now [place]. She had recent extended admission 04/01- 05/04 with multiple issues including concern for partial small bowel obstruction. She was placed on IV steroid with concern for underlying crohn disease with initial improved CRP
and discharged on taper. fecal Kristina 04/02 >3000. She had multiple other issues during admission including HE with elevated ammonia level with need for lactulose therapy, anasarca, severe hypoalbuminemia, c-diff, osteomyelitis, with partial toe
amp, + drug screen 04/02 on admission including Fentanyl and cocaine, and psych follow with wean of Suboxone.
-abdominal pain
-abnormal CT severe SB dilatation concerning for developing SBO progressed as noted in past
-hypotension
-hx pancolitis with improvement on follow up CT on admission
-hep C - untreated, severe diffuse hepatic steatosis- prior ALT elevation
-chronic splenic infarct per CT
- hx HE elevated ammonia
-recent concern for Crohn's disease on steroids, fecal kristina >3000
-osteomyelitis/toe amp with chronic alk phos elevation
-leukocytosis
-anemia
-coagulopathy -improving
- hypoalbuminemia
-+tox screen on prior admission
-hx crohns with prior Pentasa use
other med problems:
-hx IVDA
-bipolar
-RUQ amputation after drug relapse October 2023
-? hypoxic brain injury
-prior hep A +
-GERD
-ischial breakdown
PLAN:
Etiology of ongoing obstructive process related to underlying crohn's though bx from [facility] not conclusion vs ischemic related as all GI issues occurred after from prior relapse in October with arm amp/ ? hypoxic episode/cocaine use with continued
recovery vs other
pt has also been on chronic Suboxone with bowel issues
Pt now feeling better s/p NGT decompression reports now pain 08/15
maintain adequate perfusion as some hypotension with BP 90 since admission
check CRP and repeat fecal kristina
appreciate surgical consult
NPO
cont IV steroid for now
Due follow up with GI at [facility] next week
agree with nutritional consult with persistent hypoalbuminemia
eventual OP eval for hep C that has not been treated
keep electrolytes corrected
stressed to patient need to avoid relapse with drug use with multiple issues since October with prior relapse
[facility] hosp records reviewed as above
will review imaging with Dr. Seals
-
-
Thank you for consultation and allowing me to participate in the patient's care. Please call the alternative dispute resolution mediator GI physician during the after hours with any questions or concerns.
--- NOTE | 2024-05-11 10:19 | WOUNDNOTE ---
LEFT DORSAL FOOT
--- NOTE | 2024-05-11 10:21 | WOUNDNOTE ---
BILATERAL LOWER EXTREMITY
--- NOTE | 2024-05-11 10:22 | WOUNDNOTE ---
RIGHT AMPUTATED GREAT TOE
--- NOTE | 2024-05-11 10:25 | WOUNDNOTE ---
WON RN note: Patient admitted with osteomyelitis of R great toe.
See H&P for complete history. Lives with Father.
PMH: Crohn's, bipolar, Hep C, possible cirrhosis, polysubstance abuse with prior OD, RUE amputation, b/l foot drop. R great toe tip amputation, seen by Podiatry last admission.
Wound Location and type/assessment: Patient Known to service, last seen 04/29/24, admitted with: R great toe amp site now open at tip and probes to bone. Maceration surrounding, small drainage and slough. Moist btw toe webs but no open ulcers.
Tato is on consult. Upper arm amp with scars, past ulcer healed. R ischial with healing stage 2 pressure injury. Sacral/buttocks with multiple scars. L dorsal medial foot with old skin tear, base pink, small drainage, maceration surrounding.
Patient reports her dressings have not been changed for a week. L lower anterior leg with small open venous ulcer and weeping serous drainage. Pitting edema of legs, heels dry and blanchable red.
Appetite: currently NPO. Severe malnutrition, dietary on consult.
Pressure redistribution devices in place: On Versa care air bed, patient unable to lift legs on own. She can turn in bed with assist. Repositioned onto R semi side lying position with pillow under calves.
Plan: Local wound care done for R great toe. Dr. Godwin consulted, will follow peripherally and assist as needed. Silicone border foam applied to R ischium. L dorsal foot and leg applied adaptic, gauze and gregory. Tubigrip size F applied to both
legs knee high. Will order mineral oil for both legs and feet. Leg elevation and offloading heels.
Updated Dr. Garg of the above and approved of compression/wound care. Updated nurse.
Care plan to be updated and will follow as needed.
Note to case management of equipment requested for discharge: Air mattress at SNF.
Recommend follow up at wound care center upon discharge.
--- NOTE | 2024-05-11 10:25 | WOUNDNOTE ---
RIGHT ARM STUMP
[2024-05-11] MEDS: LR 1000 IV ×2 (11:03→20:36)
--- NOTE | 2024-05-11 13:46 | CM ---
Addendum entered by Hilary Fenton RN 05/11/24 13:50:
CM confirmed patient will need a new authorization for STR at [facility].
[facility] NPI's
[id number]
Dr. Santiago
[phone]
Original Note:
CM reviewed medical records. Patient presented from [facility]. Patient was discharged under STR with the plan for transition to LTC.
CM left message for Jazmin at [facility] to confirm that patient will need another authorization. CM will await return call.
PLAN: Return to [facility]
--- NOTE | 2024-05-11 14:18 | CON.GS ---
Consultation
-
Requesting Provider: Forest
Performing Provider: Tato
Reason for Consultation: Abd pain
Medical History
-
Chief Complaint: Abd pain
History of Present Illness:
34F known to our service from a approx 1 month hospitalization during the month of April for Crohn's flare with associated SBO, she was treated with steroids and was DC'ed to rehab facility. She returns via the ED with recurrent abd pain with
distention. Was not eating well at [facility] but reports she didnt like the food. After a big meal developed 03/17 pain prompting return to ED. Denies n/v/f/c. Presently denies abd pain after receiving IV steroids. Last BM yesterday. Not sure about flatus.
Past Medical History
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
Hypoxic brain injury with drug overdose))
Past Surgical History: Other (right upper extremity amputation)
Social History
Tobacco: Smoker
Alcohol: Former
Drug: Former User
Personal: Single
Living: [facility]
Employment: Disabled
Family History
Family History: Reviewed & Noncontributory
Allergies / Home Medications
Allergy/AdvReac Type Severity Reaction Status Date / Time
No Known Allergies Allergy Verified 03/31/24 20:28
�Medication �Instructions �Recorded �Confirmed �Type
ascorbic acid (vitamin C) 500 mg 500 mg PO DAILY Supplement 03/30/24 05/10/24 History
tablet (Vitamin C)
lidocaine 4 % topical patch 1 patch topical DAILY left shoulder 03/30/24 05/10/24 History
pantoprazole 40 mg tablet,delayed 40 mg PO DAILY Gastrointestinal 03/30/24 05/10/24 History
release Issue
potassium chloride 20 mEq 20 meq PO DAILY Electrolyte 03/30/24 05/10/24 History
tablet,extended release Repletion
spironolactone 50 mg tablet 50 mg PO DAILY Fluid 03/30/24 05/10/24 History
(Aldactone) Retention/Swelling
thiamine HCl (vitamin B1) 100 mg 100 mg PO DAILY Supplement 03/30/24 05/10/24 History
tablet
zinc sulfate 50 mg zinc (220 mg) 50 mg PO DAILY Supplement 03/30/24 05/10/24 History
capsule
buprenorphine HCl 2 mg sublingual 2 mg sublingual BID@0800,1600 #20 05/04/24 05/10/24 Rx
tablet tabs
cephalexin 500 mg capsule 500 mg PO BID 7 days #14 caps 05/04/24 05/10/24 Rx
furosemide 20 mg tablet (Lasix) 20 mg PO DAILY Fluid 05/04/24 05/10/24 Rx
Retention/Swelling #0 tabs
lactulose 20 gram/30 mL oral 20 g (30 mL) PO BID #1,500 mL 05/04/24 05/10/24 Rx
solution
melatonin 5 mg tablet 5 mg PO HS #30 tabs 05/04/24 05/10/24 Rx
prednisone 50 mg tablet 50 mg PO DAILY Anti-Inflammatory 05/04/24 05/10/24 Rx
#0 tabs
vancomycin 50 mg/mL oral solution 125 mg (2.5 mL) PO Q6 #80 mL 05/04/24 05/10/24 Rx
bisacodyl 10 mg rectal suppository 10 mg WV DAILYPRN PRN if mom is 05/10/24 05/10/24 History
(Dulcolax (bisacodyl)) ineffective
gabapentin 100 mg capsule 100 mg PO Q8H pain 05/10/24 05/10/24 History
magnesium hydroxide 400 mg/5 mL 30 ml PO DAILYPRN PRN if no bm x 3 05/10/24 05/10/24 History
oral suspension (Milk of Magnesia) days
mirtazapine 15 mg tablet 15 mg PO HS depression/sleep 05/10/24 05/10/24 History
sodium phosphates 19 gram-7 118 ml WV DAILYPRN PRN if 05/10/24 05/10/24 History
gram/118 mL enema (Fleet Enema) suppository is ineffective
Review of Systems
-
A 10 point review of systems was completed, and was negative except as per HPI.
Physical Exam
Vital Signs
Temp Pulse Resp BP Pulse Ox
98.7 F 84 14 84/68 95
05/10/24 23:45 05/11/24 13:01 05/11/24 13:01 05/11/24 12:32 05/11/24 06:42
05/10/24 05/11/24 05/12/24
06:59 06:59 06:59
Actual Weight 64.7 kg
Body Mass Index (BMI) 23.7
Lab Results
05/11/24 04:38
05/11/24 04:38
WBC 12.1 10^3/uL (4.8-10.8) H 05/11/24 04:38
Hgb 9.6 g/dL (12.0-16.0) L 05/11/24 04:38
Hct 27.5 % (37.0-47.0) L 05/11/24 04:38
Plt Count 176 10^3/uL (130-400) 05/11/24 04:38
Abs Immat Gran (auto) 0.1 10^3/uL (0-0.05) H 05/10/24 23:44
Neutrophils % 87.3 % (42.2-75.2) H 05/10/24 23:44
Physical Exam
General: No Apparent Distress and Comfortable
GI: Soft, Non Tender and Non Distended
Skin: Warm and Dry
Neuro: AO x 3
Psych: Calm
Data Reviewed
-
CT Scan: Image Personally Visualized and interpreted, Report Reviewed by me, Discussed with Physician and Discussed with Patient
Labs: Labs Reviewed by me
Old Records: Reviewed
Assessment / Plan
-
34F with apparent recurrent Crohn's flare and possible associated SBO
Unclear if passing flatus, but denies abd pain, denies n/v
Exam benign
Labs notable for leukocytosis trending down, elevated CRP, hyponatremia, hypoalbuminemia
Known hx of hepatic cirrhosis, admit labs c/w Child Salazar class C, this may improve to class B after further resuscitation but unlikely to ever be Class A
She asks about liver transplant, MELD currently 17
Plan:
DC NGT
Trial FLD (She refused CLD)
Crohn's mgmt per GI
Ambulate
DVT ppx
Advised her if her condition worsens any abdominal surgery would be very high risk in light of her liver disease and should be considered as a last resort only
Further advised her that if she improves and is ultimately DC'ed, it would be worthwhile for her to follow up with a liver transplant team, though unclear if they would offer transplant given comorbidities
--- NOTE | 2024-05-11 16:16 | WOUNDNOTE ---
[facility] RN note: Emery texted Dr. Garg asking to consider podiatry consult. Dr. Casillas and Dr. Fine did R great toe partial amp on 04/08/24. [facility] RN nurse Ashley stated wound probes to bone. Dr. Garg responded he will contact art museum docent
tomorrow.
[2024-05-11] MEDS: LOVENOX 40 MG SC (18:56)
[2024-05-12] VITALS (7 sets, daily range): BP systolic 91–149; BP diastolic 62–92
--- NOTE | 2024-05-12 00:42 | PTCARENOTE ---
Patient arrived to unit via stretcher with diagnosis of SBO. Patient denies pain at current time. AAOX3. Pleasant and cooperative with care. Call ferguson within reach. Oriented to unit.
[2024-05-12] MEDS: SOLU-MEDROL PF 20 MG IV ×3 (03:23→17:45)
[2024-05-12] MEDS: TORADOL 10 MG IV (04:27)
[2024-05-12 05:10] LABS: Amphetamines Negative (Negative); Barbiturates Negative (Negative); Benzodiazepines Positive (Negative); Buprenorphine Positive (Negative); Cocaine Negative (Negative); Marijuana Negative (Negative); Methadone Negative (Negative); Methamphetamines Negative (Negative); Opiates Positive (Negative); Phencyclidine Negative (Negative); Tricyclic Antidepressants Negative (Negative)
[2024-05-12 05:12] LABS: Ammonia 37 umol/L (9-30)
[2024-05-12 05:16] LABS: ALT (SGPT) 19 U/L (0-35); AST (SGOT) 26 U/L (14-36); Albumin 1.7 g/dl (3.5-5.0); Alkaline Phosphatase 174 U/L (38-126); Blood Urea Nitrogen 14 mg/dl (7-17); Calcium 7.2 mg/dl (8.4-10.2); Carbon Dioxide 27 mmol/L (22-30); Chloride 100 mmol/L (98-107); Estimated Creatinine Clearance 119 ml/min; Glucose 110 mg/dl (70-99); Potassium 4.6 mmol/L (3.5-5.1); Sodium 131 mmol/L (135-145); Total Bilirubin 0.5 mg/dl (0.2-1.3); Total Protein 4.9 g/dl (6.3-8.2); eGFR > 60.00
[2024-05-12 05:28] LABS: Fentanyl, Urine Negative (Negative)
[2024-05-12 05:52] LABS: Urine Albumin Trace (Neg - Trace); Urine Bilirubin 2+ (Negative); Urine Character Slightly Cloudy (Clear); Urine Color Amber; Urine Glucose Negative (Negative); Urine Ketone Trace (Negative); Urine Leukocyte Trace (Negative); Urine Nitrite Positive (Negative); Urine Occult Blood Negative (Negative); Urine Specific Gravity 1.025 (<1.030); Urine Urobilinogen 1+ (Neg - 1+)
[2024-05-12] MEDS: LR 1000 IV (06:02)
[2024-05-12 06:58] LABS: Urine Amorphous Seen; Urine Bacteria Many (Negative); Urine Mucus Many; Urine Squamous Cell >30 /LPF (Few)
[2024-05-12 06:59] LABS: Urine Hyaline Cast >15 /LPF (0-2)
[2024-05-12 07:03] LABS: Urine White Cell 21-25 /HPF (0-5)
[2024-05-12 07:04] LABS: Urine Red Blood Cell 26-30 /HPF (0-2)
--- NOTE | 2024-05-12 07:09 | W.PN.GI.CBS2 ---
Today's Communication / Plan
-
Please see assessment and plan for details.
Assessment / Plan
-
1. Abdominal pain: With massively dilated small bowel that has been chronic. She states that prior to her hospitalization for polypharmacy and prolonged hypotension she had no GI symptoms. It is possible that her stricture is not related to
Crohn's though is resultant ischemic stricture and now prolonged partial small bowel obstruction as on review of her records there was no definite diagnosis of Crohn's disease. She is been chronically on prednisone 50 mg. Her symptoms are better
after NG tube decompression though has no vomiting now and is having bowel movements. Again this is a very complicated situation, at this point given resolution of her symptoms would hold on further workup. Will advance to low residue diet today
given symptoms and exam. She has outpatient follow-up already with her auto air conditioning installer at [place] next week, though suspect would need tertiary care evaluation as would likely need surgical intervention. If she is tolerating diet then is okay
to UT from GI standpoint.
2. Hepatitis C: Na�ve to treatment, unclear if cirrhosis. There is a report of hepatic encephalopathy though this was also at the time of polypharmacy, now with essentially normal platelets and INR, no other stigmata of cirrhosis. Again, she is
following up with her primary auto air conditioning installer and [place].
3. Personal history of polyps: Along with biopsy of sigmoid ulceration that was consistent with adenomatous tissue. She has again follow-up planned with her primary auto air conditioning installer.
Subjective
Subjective
Date of Service: May 12, 2024
Patient feeling okay, had full liquids with no difficulties, no vomiting, no increased abdominal pain, did have soft bowel movement. No fevers or chills overnight.
Objective
Data Reviewed
Laboratory Data:
Laboratory Results
05/12/24 04:31
Laboratory Results
PT 15.5 Sec (11.4-14.6) H 05/10/24 23:44
INR 1.20 05/10/24 23:44
Magnesium 1.5 mg/dl (1.6-2.3) L 05/10/24 23:44
Total Bilirubin 0.5 mg/dl (0.2-1.3) 05/12/24 04:31
AST 26 U/L (14-36) 05/12/24 04:31
ALT 19 U/L (0-35) 05/12/24 04:31
Alkaline Phosphatase 174 U/L (38-126) H 05/12/24 04:31
Lipase 17 U/L (23-300) L 05/10/24 23:44
Vital Signs and I&O:
Vital Signs
Temp Pulse Resp BP Pulse Ox
97.6 F 87 18 112/80 98
05/12/24 03:32 05/12/24 03:32 05/12/24 03:32 05/12/24 03:32 05/12/24 03:32
I&O
05/11/24 05/12/24 05/13/24
06:59 06:59 06:59
Intake Total 50 / 50 480 / 480
Output Total 120 / 120
Balance 50 / 50 360 / 360
Physical Exam
Physical Exam
General: NAD
Abdomen: High-pitched bowel sounds, similar to yesterday, distended with increased tympany, no tenderness.
[2024-05-12 07:23] LABS: Hematocrit 26.5 % (37.0-47.0); Hemoglobin 8.9 g/dL (12.0-16.0); Mean Corp Hgb Conc. 33.6 g/dL (33.0-37.0); Mean Corpuscular Volume 83.3 fL (81.0-99.0); Mean Platelet Volume 11.9 fL (7.4-10.4); Platelet Count 177 10^3/uL (130-400); Red Blood Cell Count 3.18 10^6/uL (4.20-5.40); White Blood Cell Count 15.6 10^3/uL (4.8-10.8)
[2024-05-12] MEDS: HYDROPHOR 1 APPLIC TOPICAL (08:59)
[2024-05-12] MEDS: SUBUTEX 2 MG SL ×2 (08:59→17:09)
[2024-05-12 09:09] LABS: Absolute Neutrophils -Man Diff 15.4 10^3/uL (1.4-6.5); Anisocytosis 1+; Band Neutrophils 30 % (0-3); Lymphocytes 1 % (20-51); Normal RBC Morphology No; Platelets Checked Yes; Segmented Neutrophils 69 % (42-75)
[2024-05-12 09:10] LABS: Hypochromasia 2+; Polychromasia 2+; Target Cells 2+; Total Cells Counted 100
--- NOTE | 2024-05-12 13:41 | PTCARENOTE ---
Pt with decreased urine output throughout shift. Pt bladder scanned for 230 mls, pt also has ascites and third spacing. Md made aware, will continue to monitor and straight cath as needed
[2024-05-12] MEDS: TYLENOL PO (13:47)
[2024-05-12] MEDS: DUPHALAC/CHRONULAC 20 GRAMS PO (13:48)
--- NOTE | 2024-05-12 14:57 | W.PN.HOSP.TC ---
Today's Communication/Plan
-
Low residue diet
Resume lactulose.
Transition to oral steroid taper starting with 50 mg taper by 10 mg every 7 days.
Monitor urine output.
Hold diuretics for another 24 to 48 hours.
Wound care
Discharge planning
Assessment / Plan
Assessment / Plan
Impression:
Patient is a 34y F with PMH significant for IVDA, untreated Hep C and cirrhosis with recent complicated hospital stay for Crohn's / SBO who presents to ED complaining of SOB, abdominal pain and distention.
Recurrent at least partial SBO suspected secondary to inflammatory process in patient with Crohn's disease
Crohn's disease.
Pancolitis
C. difficile antigen positive toxin negative recently treated with oral vancomycin.
Cirrhosis secondary to untreated hepatitis C.
Hepatic encephalopathy
Recurrent ascites.
Anasarca
Severe protein calorie malnutrition
Hypovolemic hyponatremia
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
Polysubstance abuse, former IVDA on Suboxone.
Anxiety disorder
Multiple skin breakdowns
Plan:
Recurrent SBO likely inflammatory in nature
CT scan with oral contrast in the ED consistent with increased from prior dilated bowel loops.
Not clear if this is Crohn's/inflammatory bowel disease exacerbation with inflammatory stricture versus prior ischemic bowel insult.
Patient has not established diagnosis of IBD as per records.
Overall improved with resolution of nausea
NG tube removed
Diet has been advanced to low residue.
Monitor closely.
Transition to oral steroid taper.
Recently treated for pancolitis
Stool cultures negative to date.
C. difficile toxin negative antigen positive completed course of vancomycin while on systemic antibiotics for pancolitis.
Monitor closely off antibiotics.
Hypotension
Hypovolemic hyponatremia
Patient with anasarca and third spacing.
Hold Lasix and spironolactone
Follow BMP.
Cirrhosis secondary to untreated hepatitis C.
Ascites status post paracentesis 05/04 1 L with no evidence of SBP.
Monitor for reaccumulation.
Hepatic encephalopathy. Mental status stable. Ammonia level 17 on presentation
With improvement of bowel function, resume lactulose
Right first great toe osteomyelitis status post partial amputation.
Completed course of antibiotics
Multiple skin breakdowns.
Wound care consult
Severe Protein Calorie Malnutrition
Hypomagnesemia
- Severe malnutrition secondary to IVDA, cirrhosis, etc.
- Nutrition evaluation / support.
- Was on TPN for a time during prior hospital stay.
- Monitor and replace electrolytes as needed.
Anxiety Disorder
Polysubstance Use Disorder
- Patient denies any interim substance abuse / use since last hospitalization. She has been in SNF since that time.
- Continue buprenorphine. Will attempt to wean off.
-Reintroduce Remeron, Neurontin when able to take p.o.
- Resume gabapentin / mirtazapine when able to take POs.
DVT Prophylaxis: Lovenox
Code Status: Full
Anticipated Discharge: 24 - 48 hours
Subjective/Interval History
-
Date of Service: May 12, 2024
Objective Data
-
Labs:
Laboratory Results
05/12/24
04:31
WBC 15.6 H
Hgb 8.9 L
Hct 26.5 L
Plt Count 177
Sodium 131 L
Potassium 4.6
Chloride 100
Carbon Dioxide 27
BUN 14
Creatinine 0.5 L
Glucose 110 H
Calcium 7.2 L
Total Bilirubin 0.5
AST 26
ALT 19
Alkaline Phosphatase 174 H
Vital Signs:
Vital Signs
Temp Pulse Resp BP Pulse Ox
97.9 F 96 18 132/83 94
05/12/24 11:43 05/12/24 11:43 05/12/24 11:43 05/12/24 11:43 05/12/24 11:43
I&O
05/11/24 05/12/24 05/13/24
06:59 06:59 06:59
Intake Total 50 / 50 480 / 480 1000 / 1000
Output Total 120 / 120 120 / 120
Balance 50 / 50 360 / 360 880 / 880
Physical Exam
-
General: No Apparent Distress
HEENT: Normocephalic, Atraumatic and Moist Mucous Membranes
Respiratory: Clear to Auscultation
Cardiac: Regular Rhythm and S1/S2; Negative Murmur, Rub or Gallop
GI: Soft, Nontender and Other (Mild distention with hypoactive bowel sounds. NG tube in place with no output); Negative Organomegaly
Rectal: Deferred by Provider
Musculoskeletal: No Clubbing, No Cyanosis, No Edema and Other (Right arm amputation)
Skin: Negative Rash
Neuro: Awake, Alert, Oriented, AO x 3 and Nonfocal/Grossly Intact
[2024-05-12] MEDS: NEURONTIN 100 MG PO ×2 (17:09→23:31)
[2024-05-12] MEDS: LOVENOX 40 MG SC (17:10)
[2024-05-12] MEDS: DUPHALAC/CHRONULAC PO (21:38)
[2024-05-12] MEDS: TYLENOL 650 MG PO (21:38)
[2024-05-12] MEDS: REMERON 15 MG PO (21:38)
--- NOTE | 2024-05-12 23:17 | CON.SURG ---
Surgical Consultation
-
Patient is a 34y F with PMH significant for IVDA, untreated Hep C / cirrhosis and recent long and complicated hospital stay primarily for SBO / Crohn's disease who presented to ED complaining of abdominal pain and SOB. Patient was recently
admitted from 04/01 - 05/04 for SBO thought to be secondary to inflammation from Crohn's enteritis. Her hospital stay was complicated by development of osteomyelitis of the R great toe requiring amputation and IV abx during that admission.
Subsequently, who would became macerated and dehisced due to serous drainage. Local wound care was recommended at that time. Patient now re-presents to for GI complaints. Right wound has continued to drain while at rehab. Patient denies any
fevers or chills upon my evaluation.
Medical History
Past Medical History
Past Medical History: Reports Other
Additional Past Medical History:
IVDA
Untreated Hep C
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
Crohn's Disease
Anemia of Chronic Disease
Severe Malnutrition
Osteomyelitis
Skin Breakdown / Ulcerations
Past Surgical History: Reports Other
Additional Past Surgical History:
RUE Amputation
R Hallux Amputation
Social History
Tobacco: Former Smoker
Alcohol: None
Drug: Other (History of multiple substance abuse. Patient denies any drug use since recent discharge.)
Family History
Family History: Not pertinent
Allergies / Home Medications
Allergies reflects when Allergies were last updated in [employer]
Home Medications with original date entered in [employer]
Allergy/Medication List:
Allergies
Allergy/AdvReac Type Severity Reaction Status Date / Time
No Known Allergies Allergy Verified 03/31/24 20:28
Home Medications
ascorbic acid (vitamin C) 500 mg tablet (Vitamin C) 500 mg PO DAILY Supplement 03/30/24
lidocaine 4 % topical patch 1 patch topical DAILY left shoulder 03/30/24
pantoprazole 40 mg tablet,delayed release 40 mg PO DAILY Gastrointestinal Issue 03/30/24
potassium chloride 20 mEq tablet,extended release 20 meq PO DAILY Electrolyte Repletion 03/30/24
spironolactone 50 mg tablet (Aldactone) 50 mg PO DAILY Fluid Retention/Swelling 03/30/24
thiamine HCl (vitamin B1) 100 mg tablet 100 mg PO DAILY Supplement 03/30/24
zinc sulfate 50 mg zinc (220 mg) capsule 50 mg PO DAILY Supplement 03/30/24
buprenorphine HCl 2 mg sublingual tablet 2 mg sublingual BID@0800,1600 #20 tabs 05/04/24
cephalexin 500 mg capsule 500 mg PO BID 7 days #14 caps 05/04/24
furosemide 20 mg tablet (Lasix) 20 mg PO DAILY Fluid Retention/Swelling #0 tabs 05/04/24
lactulose 20 gram/30 mL oral solution 20 g (30 mL) PO BID #1,500 mL 05/04/24
melatonin 5 mg tablet 5 mg PO HS #30 tabs 05/04/24
prednisone 50 mg tablet 50 mg PO DAILY Anti-Inflammatory #0 tabs 05/04/24
vancomycin 50 mg/mL oral solution 125 mg (2.5 mL) PO Q6 #80 mL 05/04/24
bisacodyl 10 mg rectal suppository (Dulcolax (bisacodyl)) 10 mg AR DAILYPRN PRN if mom is ineffective 05/10/24
gabapentin 100 mg capsule 100 mg PO Q8H 05/10/24
magnesium hydroxide 400 mg/5 mL oral suspension (Milk of Magnesia) 30 ml PO DAILYPRN PRN if no bm x 3 days 05/10/24
mirtazapine 15 mg tablet 15 mg PO HS 05/10/24
sodium phosphates 19 gram-7 gram/118 mL enema (Fleet Enema) 118 ml AR DAILYPRN PRN if suppository is ineffective 05/10/24
Review of Systems
-
History Source: Patient
A 12 point ROS was completed and negative except as noted: Yes
Constitutional: Reports Fatigue; Denies Fever or Chills
Respiratory: Reports Trouble Breathing; Denies Cough
Cardiac: Denies Chest Pain or Palpitations
Abdomen/GI: Reports Abdominal Pain and Nausea; Denies Vomiting, Diarrhea, Constipated or Anorexia
: Denies Dysuria or Frequency
Neurological: Denies Dizzy or Headache
Psych: Reports Anxiety; Denies Depression
Physical Exam
Vital Signs
Vital Signs
Temp Pulse Resp BP Pulse Ox
98.7 F 117 17 111/86 96
05/10/24 23:45 05/11/24 02:00 05/11/24 02:00 05/11/24 00:00 05/11/24 00:00
Physical Exam
General: Other (Chronically ill-appearing 34y F is lethargic but will repond / answer questions when stimulated. Restless / in mild distress at times.)
HEENT: PERRLA and Other (Dry MM. Neck supple.)
Respiratory: Other (Decreased at bases - otherwise clear. Poor inspiration / shallow respirations.)
Cardiac: S1/S2 and Tachycardia; No Murmur
GI: Other (Tense, firm abdomen. Diffusely tender. Diminshed bowel sounds.)
Musculoskeletal: No Clubbing, No Cyanosis and Other (3+ pitting edema b/l LEs. s/p amputation at R mid-humerus. Amputation R 1st toe.)
Neuro: Other (Lethargic but responds to voice. Does not open eyes. Does not answer some questions.)
RLE Exam
DP/PT pulse 2/4
Severe diffuse edema noted to right foot
Right partial hallux amputation site with complete wound dehiscence and serous drainage. There is no purulence, surrounding erythema, or crepitus. Positive probe deep to subcutaneous tissue
Laboratory Results
-
05/10/24 23:44
05/10/24 23:44
Laboratory Results
PT 15.5 Sec (11.4-14.6) H 05/10/24 23:44
INR 1.20 05/10/24 23:44
Lactic Acid Cancelled 05/11/24 03:45
Total Bilirubin 0.6 mg/dl (0.2-1.3) 05/10/24 23:44
AST 29 U/L (14-36) 05/10/24 23:44
ALT 18 U/L (0-35) 05/10/24 23:44
Alkaline Phosphatase 168 U/L (38-126) H 05/10/24 23:44
Lipase 17 U/L (23-300) L 05/10/24 23:44
Impression/Plan
Patient presents s/p partial right hallux amputation with wound dehiscence
-Patient seen and evaluated at bedside, applied betadine DSD MARYANA bandage
-Wound dehiscence likely a result of diffuse edema and serous drainage
-Will discuss edema control with primary team
-Recommend right foot radiographs
-Please continue local wound care with betadine, DSD, MARYANA bandage dressing changes daily
-Recommend continuing antibiotics at this time
-Patient will likely require revision of right hallux amputation, but given severe edema she is at risk for repeated wound dehiscence
-Will continue to follow
Code Status: Full
[2024-05-13] VITALS (9 sets, daily range): BP systolic 99–131; BP diastolic 67–93; PULSE 93; O2SAT 96; BMI 23.7
--- NOTE | 2024-05-13 07:30 | WOUNDNOTE ---
[facility] RN Note: Confirmed R great toe partial amp wound care with Dr. Casillas (betadine and gauze dressing daily) and Dr. Casillas confirmed knee high Tubigrip is okay for compression (currently ordered) instead of renzo wrap as long as it includes her
foot. Care plan and discharge instructions updated.
[2024-05-13] MEDS: PROTONIX 40 MG PO (10:08)
[2024-05-13] MEDS: VITAMIN C 500 MG PO (10:08)
[2024-05-13] MEDS: NEURONTIN 100 MG PO ×3 (10:08→23:29)
[2024-05-13] MEDS: DUPHALAC/CHRONULAC PO ×2 (10:08→20:51)
[2024-05-13] MEDS: DELTASONE 50 MG PO (10:08)
[2024-05-13] MEDS: SUBUTEX 2 MG SL ×2 (10:09→16:31)
[2024-05-13] MEDS: KCL 20 MEQ PO (10:09)
--- NOTE | 2024-05-13 10:55 | CM ---
Pt seen bedside. Additional information gathered. Pt has Crohn's disease and has been getting flares causing hospitalizations. Pt was admitted from [facility]. Pt primarily resides w/ her father in a 2bdr apt. Per pt she was able to independently
ambulate up until November, after that she was in and out of the hospital and rehabs. Pt stated she does not have any DME and needs a walker, WC and commode at home.
Per pt, father is working on getting SSDI.
Per pt, she nor her father want a return to [facility] and want to explore a different rehab.
Spoke w/ pt's father who states pt does need LTC as she is unable to go to the bathroom, independently, brush her teeth independently, bathe independently, etc. Pt's father states pt cannot come home as her LOC is too much for him and his .
CM discussed LTC vs rehab as pt's father is interested in LTC. Discussed LTC is private pay, father states he wasn't aware and do not have much money. CM discussed private aids or caregivers in the home as an option which would be private pay as
well. Father reiterated that pt cannot come home. Father stated he has to discuss w/ pt's mother to determine filler leaf cutter long plan as he is uncertain at this time.
CM stated referrals for rehab can still be done in the meantime as she is being recommended at this time. Father is agreeable.
Pt would like to explore [facility] as she has been there before, father would like to [facility] as this was done in the past. Additional rehabs will be explored as well.
Plan: PT/OT recommend SNF
Referrals to be sent to requesting rehabs and additional rehabs to preferred areas ([place], [place], [place], [place])
Will cont to discuss LTC plan w/ family and pt to determine additional supports and resources CM can possibly provide
--- NOTE | 2024-05-13 13:48 | W.PN.GI.CBS2 ---
Today's Communication / Plan
-
follow abdominal exam on diet
Assessment / Plan
-
1. Abdominal pain: With massively dilated small bowel that has been chronic. She states that prior to her hospitalization for polypharmacy and prolonged hypotension she had no GI symptoms. It is possible that her stricture is not related to
Crohn's though is resultant ischemic stricture and now prolonged partial small bowel obstruction as on review of her records there was no definite diagnosis of Crohn's disease. She is been chronically on prednisone 50 mg. Her symptoms are better
after NG tube decompression though has no vomiting now and is having bowel movements. Again this is a very complicated situation, at this point given resolution of her symptoms would hold on further workup. tolerating low residue diet she does have
chronic distention but currently no vomiting. she has outpatient follow-up already with her stretching machine tender frame at [place] 05/19, though suspect would need tertiary care evaluation as would likely need surgical intervention.
2. Hepatitis C: Na�ve to treatment, unclear if cirrhosis. There is a report of hepatic encephalopathy though this was also at the time of polypharmacy, now with essentially normal platelets and INR, no other stigmata of cirrhosis. Again, she is
following up with her primary stretching machine tender frame and [place].
3. Personal history of polyps: Along with biopsy of sigmoid ulceration that was consistent with adenomatous tissue. She has again follow-up planned with her primary stretching machine tender frame.
Subjective
Subjective
Date of Service: May 13, 2024
Patient is currently tolerating low residue diet and has not had any nausea or vomiting she did have a large bowel movement today per nursing record pain is also improving
Objective
Data Reviewed
Laboratory Data:
Laboratory Results
05/12/24 04:31
05/12/24 04:31
Laboratory Results
PT 15.5 Sec (11.4-14.6) H 05/10/24 23:44
INR 1.20 05/10/24 23:44
Magnesium 1.5 mg/dl (1.6-2.3) L 05/10/24 23:44
Total Bilirubin 0.5 mg/dl (0.2-1.3) 05/12/24 04:31
AST 26 U/L (14-36) 05/12/24 04:31
ALT 19 U/L (0-35) 05/12/24 04:31
Alkaline Phosphatase 174 U/L (38-126) H 05/12/24 04:31
Lipase 17 U/L (23-300) L 05/10/24 23:44
Vital Signs and I&O:
Vital Signs
Temp Pulse Resp BP Pulse Ox
97.5 F 105 18 113/83 100
05/13/24 11:10 05/13/24 11:10 05/13/24 11:10 05/13/24 11:10 05/13/24 11:10
I&O
05/12/24 05/13/24 05/14/24
06:59 06:59 06:59
Intake Total 480 / 480 2560 / 2560
Output Total 120 / 120 120 / 120
Balance 360 / 360 2440 / 2440
Physical Exam
Physical Exam
Cardiology: Normal Sinus Rhythm
Pulmonary: Clear
GI: Soft and Distended (Mildly distended tender in the lower abdomen and also mildly tympanic hypoactive bowel sounds)
[2024-05-13] MEDS: HYDROPHOR 1 APPLIC TOPICAL (16:31)
--- NOTE | 2024-05-13 16:59 | W.PN.HOSP.TC ---
Today's Communication/Plan
-
Diet has been advanced
Continue lactulose
Monitor ammonia level and mental status.
If stable oral intake consider to reintroduce diuretic regimen to minimize edema
Monitor for ascites reaccumulation.
Continue oral steroids.
Assessment / Plan
Assessment / Plan
Impression:
Patient is a 34y F with PMH significant for IVDA, untreated Hep C and cirrhosis with recent complicated hospital stay for Crohn's / SBO who presents to ED complaining of SOB, abdominal pain and distention.
Recurrent at least partial SBO suspected secondary to inflammatory process in patient with Crohn's disease
Crohn's disease.
Pancolitis
C. difficile antigen positive toxin negative recently treated with oral vancomycin.
Cirrhosis secondary to untreated hepatitis C.
Hepatic encephalopathy
Recurrent ascites.
Anasarca
Severe protein calorie malnutrition
Hypovolemic hyponatremia
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
Polysubstance abuse, former IVDA on Suboxone.
Anxiety disorder
Multiple skin breakdowns
Plan:
Recurrent SBO likely inflammatory in nature
CT scan with oral contrast in the ED consistent with increased from prior dilated bowel loops.
Not clear if this is Crohn's/inflammatory bowel disease exacerbation with inflammatory stricture versus prior ischemic bowel insult.
Patient has not established diagnosis of IBD as per records.
Overall improved with resolution of nausea
NG tube removed
Diet has been advanced to low residue with so far good tolerance
Monitor closely.
Transition to oral steroid taper.
Recently treated for pancolitis
Stool cultures negative to date.
C. difficile toxin negative antigen positive completed course of vancomycin while on systemic antibiotics for pancolitis.
Monitor closely off antibiotics.
Hypotension
Hypovolemic hyponatremia
Patient with anasarca and third spacing.
Hold Lasix and spironolactone
Follow BMP.
Cirrhosis secondary to untreated hepatitis C.
Ascites status post paracentesis 05/04 1 L with no evidence of SBP.
Monitor for reaccumulation.
Hepatic encephalopathy. Mental status stable. Ammonia level 17 on presentation
With improvement of bowel function, resume lactulose
Right first great toe osteomyelitis status post partial amputation.
Completed course of antibiotics
Wound is dehiscent but not infected
Podiatry input appreciated and plan is for revision of right toe amputation early next week.
Multiple skin breakdowns.
Wound care consult
Severe Protein Calorie Malnutrition
Hypomagnesemia
- Severe malnutrition secondary to IVDA, cirrhosis, etc.
- Nutrition evaluation / support.
- Was on TPN for a time during prior hospital stay.
- Monitor and replace electrolytes as needed.
Anxiety Disorder
Polysubstance Use Disorder
- Patient denies any interim substance abuse / use since last hospitalization. She has been in SNF since that time.
- Continue buprenorphine. Will attempt to wean off.
-Reintroduce Remeron, Neurontin when able to take p.o.
- Resume gabapentin / mirtazapine when able to take POs.
DVT Prophylaxis: Lovenox
Code Status: Full
Anticipated Discharge: > 48 hours
Subjective/Interval History
-
Date of Service: May 13, 2024
Objective Data
-
Labs:
Laboratory Results
05/13/24
14:06
Sodium Pending
Potassium Pending
Chloride Pending
Carbon Dioxide Pending
BUN Pending
Creatinine Pending
Glucose Pending
Calcium Pending
Vital Signs:
Vital Signs
Temp Pulse Resp BP Pulse Ox
97.4 F 97 18 126/81 100
05/13/24 15:00 05/13/24 15:00 05/13/24 15:00 05/13/24 15:00 05/13/24 15:00
I&O
05/12/24 05/13/24 05/14/24
06:59 06:59 06:59
Intake Total 480 / 480 2560 / 2560
Output Total 120 / 120 120 / 120
Balance 360 / 360 2440 / 2440
Physical Exam
-
General: No Apparent Distress
HEENT: Normocephalic, Atraumatic and Moist Mucous Membranes
Respiratory: Clear to Auscultation
Cardiac: Regular Rhythm and S1/S2; Negative Murmur, Rub or Gallop
GI: Soft, Nontender and Other (Mild distention with hypoactive bowel sounds. NG tube in place with no output); Negative Organomegaly
Rectal: Deferred by Provider
Musculoskeletal: No Clubbing, No Cyanosis, No Edema and Other (Right arm amputation)
Skin: Negative Rash
Neuro: Awake, Alert, Oriented, AO x 3 and Nonfocal/Grossly Intact
--- NOTE | 2024-05-13 18:00 | PTCARENOTE ---
Dressings to R arm amputation site, R great toe, L dorsal foot, and R upper thigh per MD order. Dressing change well tolerated by patient.
[2024-05-13 18:10] LABS: Blood Urea Nitrogen 15 mg/dl (7-17); Calcium 6.9 mg/dl (8.4-10.2); Carbon Dioxide 25 mmol/L (22-30); Chloride 101 mmol/L (98-107); Estimated Creatinine Clearance 119 ml/min; Glucose 95 mg/dl (70-99); Potassium 4.3 mmol/L (3.5-5.1); Sodium 131 mmol/L (135-145); eGFR > 60.00
[2024-05-13] MEDS: LOVENOX 40 MG SC (18:24)
[2024-05-13] MEDS: TYLENOL 650 MG PO (20:52)
[2024-05-13] MEDS: ULTRAM 25 MG PO (20:58)
[2024-05-13] MEDS: REMERON 15 MG PO (22:08)
--- NOTE | 2024-05-13 23:48 | W.PN.SURGUPD ---
Surgical Update
Surgical Update
34 yo F with right partial hallux amputation sight wound dehiscence
-Patient seen and evaluated at bedside
-Plan for right hallux amputation revision on 05/16
-Continue daily local wound care
-Will review R foot radiographs
-Will continue to follow
[2024-05-14 03:30] VITALS: BP 120/95
[2024-05-14 06:00] VITALS: BMI 23.0
[2024-05-14 07:00] VITALS: BP 130/85
[2024-05-14 07:07] LABS: Ammonia 40 umol/L (9-30)
[2024-05-14 07:33] LABS: Blood Urea Nitrogen 14 mg/dl (7-17); Calcium 7.3 mg/dl (8.4-10.2); Carbon Dioxide 25 mmol/L (22-30); Chloride 102 mmol/L (98-107); Estimated Creatinine Clearance 119 ml/min; Glucose 99 mg/dl (70-99); Potassium 4.5 mmol/L (3.5-5.1); Sodium 131 mmol/L (135-145); eGFR > 60.00
[2024-05-14] MEDS: SUBUTEX 2 MG SL ×2 (09:16→16:26)
[2024-05-14] MEDS: KCL 20 MEQ PO (09:16)
[2024-05-14] MEDS: PROTONIX 40 MG PO (09:16)
[2024-05-14] MEDS: DELTASONE 50 MG PO (09:16)
[2024-05-14] MEDS: NEURONTIN 100 MG PO ×3 (09:16→23:17)
[2024-05-14] MEDS: VITAMIN C 500 MG PO (09:16)
[2024-05-14] MEDS: DUPHALAC/CHRONULAC 20 GRAMS PO ×2 (09:16→20:57)
[2024-05-14] MEDS: HYDROPHOR 1 APPLIC TOPICAL (09:17)
[2024-05-14] MEDS: ZOFRAN 4 MG IV ×2 (09:21→20:58)
[2024-05-14 11:00] VITALS: BP 113/85
--- NOTE | 2024-05-14 13:05 | W.PN.HOSP.TC ---
Today's Communication/Plan
-
Plan for right hallux amputation revision on 05/16
Started on ceftriaxone for ? UTI
LR bolus today
F/u GI recs
Steroids
Assessment / Plan
Assessment / Plan
Impression:
Patient is a 34y F with PMH significant for IVDA, untreated Hep C and cirrhosis with recent complicated hospital stay for Crohn's / SBO who presents to ED complaining of SOB, abdominal pain and distention.
Recurrent at least partial SBO suspected secondary to inflammatory process in patient with Crohn's disease
Crohn's disease.
Pancolitis
C. difficile antigen positive toxin negative recently treated with oral vancomycin.
Cirrhosis secondary to untreated hepatitis C.
Hepatic encephalopathy
Recurrent ascites.
Anasarca
Severe protein calorie malnutrition
Hypovolemic hyponatremia
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
Polysubstance abuse, former IVDA on Suboxone.
Anxiety disorder
Multiple skin breakdowns
Plan:
Recurrent SBO likely inflammatory in nature
CT scan with oral contrast in the ED consistent with increased from prior dilated bowel loops.
Not clear if this is Crohn's/inflammatory bowel disease exacerbation with inflammatory stricture versus prior ischemic bowel insult.
Patient has not established diagnosis of IBD as per records.
Overall improved with resolution of nausea
NG tube removed
Diet has been advanced to low residue with so far good tolerance
Monitor closely.
Transition to oral steroid taper.
Recently treated for pancolitis
Stool cultures negative to date.
C. difficile toxin negative antigen positive completed course of vancomycin while on systemic antibiotics for pancolitis.
Monitor closely off antibiotics.
Hypotension
Hypovolemic hyponatremia
Patient with anasarca and third spacing.
Hold Lasix and spironolactone
Follow BMP.
-?UTI - started on Ceftriaxone for Ecoli
-IVF PRN
#UTI
-started on abx as on steroids making moreso immunocompromised if this is truly a UTI
f/u final cultures
Cirrhosis secondary to untreated hepatitis C.
Ascites status post paracentesis 05/04 1 L with no evidence of SBP.
Monitor for reaccumulation.
Hepatic encephalopathy. Mental status stable. Ammonia level 17 on presentation
With improvement of bowel function, resume lactulose
Right first great toe osteomyelitis status post partial amputation.
Completed course of antibiotics
Wound is dehiscent but not infected
Podiatry input appreciated and plan is for revision of right toe amputation early next week.
Multiple skin breakdowns.
Wound care consult
Severe Protein Calorie Malnutrition
Hypomagnesemia
- Severe malnutrition secondary to IVDA, cirrhosis, etc.
- Nutrition evaluation / support.
- Was on TPN for a time during prior hospital stay.
- Monitor and replace electrolytes as needed.
Anxiety Disorder
Polysubstance Use Disorder
- Patient denies any interim substance abuse / use since last hospitalization. She has been in SNF since that time.
- Continue buprenorphine. Will attempt to wean off.
-Reintroduce Remeron, Neurontin when able to take p.o.
- Resume gabapentin / mirtazapine when able to take POs.
DVT Prophylaxis: Lovenox
Code Status: Full
Update 05/14 : LR bolus; Start ceftriaxone; Cont steroids, f/u GI recs
Total time spent on today's encounter was 50 minutes which included time spent in counseling the patient/family regarding diagnosis and treatment plan as listed above, goals of care, and symptom management. Case was discussed with nursing staff,
specialists, and care coordinators/case management. All labs and imaging personally reviewed by me. Remainder the time spent in detailed review of previous records, lab data, imaging, and other medical provider documentation.
Anticipated Discharge: > 48 hours
Subjective/Interval History
-
Date of Service: May 14, 2024
Tolerating diet
Objective Data
-
Labs:
Laboratory Results
05/14/24
06:28
Sodium 131 L
Potassium 4.5
Chloride 102
Carbon Dioxide 25
BUN 14
Creatinine 0.4 L
Glucose 99
Calcium 7.3 L
Vital Signs:
Vital Signs
Temp Pulse Resp BP Pulse Ox
97.8 F 100 18 130/85 100
05/14/24 07:00 05/14/24 07:00 05/14/24 07:00 05/14/24 07:00 05/14/24 07:00
I&O
05/13/24 05/14/24 05/15/24
06:59 06:59 06:59
Intake Total 2560 / 2560 960 / 960
Output Total 120 / 120
Balance 2440 / 2440 960 / 960
Review of Systems
-
History Source: Patient
All other systems: Not reviewed unless documented
Physical Exam
-
General: No Apparent Distress
HEENT: Normocephalic, Atraumatic and Moist Mucous Membranes
Respiratory: Clear to Auscultation
Cardiac: Regular Rhythm and S1/S2; Negative Murmur, Rub or Gallop
GI: Soft, Nontender and Other (Mild distention with hypoactive bowel sounds. NG tube in place with no output); Negative Organomegaly
Rectal: Deferred by Provider
Musculoskeletal: No Clubbing, No Cyanosis, No Edema and Other (Right arm amputation)
Skin: Negative Rash
Neuro: Awake, Alert, Oriented, AO x 3 and Nonfocal/Grossly Intact
Data Reviewed
-
Diagnostic Radiology: Report Reviewed by me
CT Scan: Report Reviewed by me
Labs: Labs Reviewed by me
[2024-05-14] MEDS: ROCEPHIN 1000 MG IV (14:11)
[2024-05-14] MEDS: STERILE WATER FOR INJECTION 10 ML IV (14:11)
[2024-05-14 15:00] VITALS: BP 121/92
[2024-05-14] MEDS: LOVENOX 40 MG SC (17:33)
[2024-05-14 19:30] VITALS: BP 135/90
[2024-05-14] MEDS: ULTRAM 25 MG PO (20:57)
[2024-05-14] MEDS: REMERON 15 MG PO (21:00)
[2024-05-14 23:30] VITALS: BP 124/95
[2024-05-15] MEDS: ULTRAM 25 MG PO ×2 (03:16→20:22)
[2024-05-15] MEDS: ZOFRAN 4 MG IV ×2 (03:17→18:43)
[2024-05-15 03:30] VITALS: BP 122/93
[2024-05-15 06:00] VITALS: BMI 23.3
[2024-05-15 06:32] LABS: Ammonia 40 umol/L (9-30)
[2024-05-15 06:42] LABS: Hematocrit 29.7 % (37.0-47.0); Hemoglobin 9.6 g/dL (12.0-16.0); Mean Corp Hgb Conc. 32.3 g/dL (33.0-37.0); Mean Corpuscular Hgb 27.8 pg (27.0-31.0); Mean Corpuscular Volume 86.1 fL (81.0-99.0); Mean Platelet Volume 10.4 fL (7.4-10.4); Platelet Count 180 10^3/uL (130-400); Red Blood Cell Count 3.45 10^6/uL (4.20-5.40); Red Cell Dist. Width 21.5 % (11.5-14.5); White Blood Cell Count 18.8 10^3/uL (4.8-10.8)
[2024-05-15 06:47] LABS: ALT (SGPT) 25 U/L (0-35); AST (SGOT) 29 U/L (14-36); Albumin 1.8 g/dl (3.5-5.0); Alkaline Phosphatase 230 U/L (38-126); Blood Urea Nitrogen 11 mg/dl (7-17); Calcium 7.5 mg/dl (8.4-10.2); Carbon Dioxide 21 mmol/L (22-30); Chloride 104 mmol/L (98-107); Estimated Creatinine Clearance 119 ml/min; Glucose 99 mg/dl (70-99); Potassium 4.4 mmol/L (3.5-5.1); Sodium 131 mmol/L (135-145); Total Bilirubin 0.4 mg/dl (0.2-1.3); Total Protein 5.5 g/dl (6.3-8.2); eGFR > 60.00
[2024-05-15 07:05] VITALS: BP 135/96
[2024-05-15] MEDS: KCL 20 MEQ PO (10:04)
[2024-05-15] MEDS: VITAMIN C 500 MG PO (10:04)
[2024-05-15] MEDS: NEURONTIN 100 MG PO ×2 (10:04→17:06)
[2024-05-15] MEDS: DELTASONE 50 MG PO (10:04)
[2024-05-15] MEDS: SUBUTEX 2 MG SL ×2 (10:04→17:06)
[2024-05-15] MEDS: PROTONIX 40 MG PO (10:05)
[2024-05-15] MEDS: DUPHALAC/CHRONULAC 20 GRAMS PO (10:05)
[2024-05-15] MEDS: HYDROPHOR 1 APPLIC TOPICAL (10:17)
[2024-05-15 11:30] VITALS: BP 142/106
--- NOTE | 2024-05-15 12:36 | W.PN.GI.CBS2 ---
Today's Communication / Plan
-
Miralax bid
supp PRN
Assessment / Plan
-
1. Abdominal pain: With massively dilated small bowel that has been chronic. She states that prior to her hospitalization for polypharmacy and prolonged hypotension she had no GI symptoms. It is possible that her stricture is not related to
Crohn's though is resultant ischemic stricture and now prolonged partial small bowel obstruction as on review of her records there was no definite diagnosis of Crohn's disease. She is been chronically on prednisone 50 mg. Her symptoms are better
after NG tube decompression though has no vomiting now and is having bowel movements. Again this is a very complicated situation, at this point given resolution of her symptoms would hold on further workup. tolerating low residue diet she does have
chronic distention but currently no vomiting. she has outpatient follow-up already with her pickle pumper at [facility] 05/19, though suspect would need tertiary care evaluation as would likely need surgical intervention.
Given chronic distention and bloating will DC lactulose added MiraLAX twice daily and also will give her a Dulcolax suppository today last bowel movement was yesterday
2. Hepatitis C: Na�ve to treatment, unclear if cirrhosis. There is a report of hepatic encephalopathy though this was also at the time of polypharmacy, now with essentially normal platelets and INR, no other stigmata of cirrhosis. Again, she is
following up with her primary pickle pumper and [facility].
3. Personal history of polyps: Along with biopsy of sigmoid ulceration that was consistent with adenomatous tissue. She has again follow-up planned with her primary pickle pumper.
Will s/o and will be available as needed follow-up with her outpatient GI as scheduled
Subjective
Subjective
Date of Service: May 15, 2024
She had a bowel movement yesterday none today, she feels bloated and gassy, no nausea or vomiting, tolerating diet,. plan for right hallux amputation revision on 05/16
Objective
Data Reviewed
Laboratory Data:
Laboratory Results
12/08/24 06:11
05/15/24 06:11
Laboratory Results
PT 15.5 Sec (11.4-14.6) H 05/10/24 23:44
INR 1.20 05/10/24 23:44
Magnesium 1.5 mg/dl (1.6-2.3) L 05/10/24 23:44
Total Bilirubin 0.4 mg/dl (0.2-1.3) 05/15/24 06:11
AST 29 U/L (14-36) 05/15/24 06:11
ALT 25 U/L (0-35) 05/15/24 06:11
Alkaline Phosphatase 230 U/L (38-126) H 05/15/24 06:11
Lipase 17 U/L (23-300) L 05/10/24 23:44
Vital Signs and I&O:
Vital Signs
Temp Pulse Resp BP Pulse Ox
97.8 F 108 18 135/96 97
05/15/24 07:05 05/15/24 07:05 05/15/24 07:05 05/15/24 07:05 05/15/24 07:05
I&O
05/14/24 05/15/24 05/16/24
06:59 06:59 06:59
Intake Total 960 / 960 400 / 400
Balance 960 / 960 400 / 400
Physical Exam
Physical Exam
Cardiology: Normal Sinus Rhythm
Pulmonary: Clear
GI: Soft, Distended (mildly distended), Non Tender and Normal Bowel Sounds
--- NOTE | 2024-05-15 13:14 | W.PN.HOSP.TC ---
Today's Communication/Plan
-
zosyn
steroids as per gi
bm regimen adjustment
hallux amputation tentatively tomorrow
Assessment / Plan
Assessment / Plan
Impression:
Patient is a 34y F with PMH significant for IVDA, untreated Hep C and cirrhosis with recent complicated hospital stay for Crohn's / SBO who presents to ED complaining of SOB, abdominal pain and distention.
Recurrent at least partial SBO suspected secondary to inflammatory process in patient with Crohn's disease
Crohn's disease.
Pancolitis
C. difficile antigen positive toxin negative recently treated with oral vancomycin.
Cirrhosis secondary to untreated hepatitis C.
Hepatic encephalopathy
Recurrent ascites.
Anasarca
Severe protein calorie malnutrition
Hypovolemic hyponatremia
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
Polysubstance abuse, former IVDA on Suboxone.
Anxiety disorder
Multiple skin breakdowns
Plan:
Recurrent SBO likely inflammatory in nature
CT scan with oral contrast in the ED consistent with increased from prior dilated bowel loops.
Not clear if this is Crohn's/inflammatory bowel disease exacerbation with inflammatory stricture versus prior ischemic bowel insult.
Patient has not established diagnosis of IBD as per records.
Overall improved with resolution of nausea
NG tube removed
Diet has been advanced to low residue (only tolerating liquids today)
Monitor closely.
Transition to oral steroid taper. Defer steroid taper to GI
Recently treated for pancolitis
Stool cultures negative to date.
C. difficile toxin negative antigen positive completed course of vancomycin while on systemic antibiotics for pancolitis.
Monitor closely off antibiotics.
Hypotension
Hypovolemic hyponatremia
Patient with anasarca and third spacing.
Hold Lasix and spironolactone
Follow BMP.
-?UTI - started on Ceftriaxone for Ecoli
-IVF PRN
#UTI
-started on abx as on steroids, nonspecific symptoms including abd pain - if this is truly a UTI
Cirrhosis secondary to untreated hepatitis C.
Ascites status post paracentesis 05/04 1 L with no evidence of SBP.
Monitor for reaccumulation.
Hepatic encephalopathy. Mental status stable. Ammonia level 17 on presentation
With improvement of bowel function, resume lactulose
Right first great toe osteomyelitis status post partial amputation.
Completed course of antibiotics
Wound is dehiscent but not infected
Podiatry input appreciated and plan is for revision of right toe amputation early next week.
Multiple skin breakdowns.
Wound care consult
Severe Protein Calorie Malnutrition
Hypomagnesemia
- Severe malnutrition secondary to IVDA, cirrhosis, etc.
- Nutrition evaluation / support.
- Was on TPN for a time during prior hospital stay.
- Monitor and replace electrolytes as needed.
Anxiety Disorder
Polysubstance Use Disorder
- Patient denies any interim substance abuse / use since last hospitalization. She has been in SNF since that time.
- Continue buprenorphine. Will attempt to wean off.
-Reintroduce Remeron, Neurontin when able to take p.o.
- Resume gabapentin / mirtazapine when able to take POs.
DVT Prophylaxis: Lovenox
Code Status: Full
Update 05/14 : LR bolus; Start ceftriaxone; Cont steroids, f/u GI recs
Update 05/15 - Switch to zosyn while inpatient; BM regimen adjustment; Steroid taper as per GI; Hallux amputation 05/16
Anticipated Discharge: > 48 hours
Subjective/Interval History
-
Date of Service: May 15, 2024
Still having some abdominal pain, minimal p.o. intake
Objective Data
-
Labs:
Laboratory Results
05/15/24
06:11
WBC 18.8 H
Hgb 9.6 L
Hct 29.7 L
Plt Count 180
Sodium 131 L
Potassium 4.4
Chloride 104
Carbon Dioxide 21 L
BUN 11
Creatinine 0.4 L
Glucose 99
Calcium 7.5 L
Total Bilirubin 0.4
AST 29
ALT 25
Alkaline Phosphatase 230 H
Vital Signs:
Vital Signs
Temp Pulse Resp BP Pulse Ox
97.7 F 108 18 142/106 96
05/15/24 11:30 05/15/24 11:30 05/15/24 11:30 05/15/24 11:30 05/15/24 11:30
I&O
05/14/24 05/15/24 05/16/24
06:59 06:59 06:59
Intake Total 960 / 960 400 / 400
Balance 960 / 960 400 / 400
Review of Systems
-
History Source: Patient
All other systems: Not reviewed unless documented
Physical Exam
-
General: No Apparent Distress
HEENT: Normocephalic, Atraumatic and Moist Mucous Membranes
Respiratory: Clear to Auscultation
Cardiac: Regular Rhythm and S1/S2; Negative Murmur, Rub or Gallop
GI: Soft, Nontender and Other (Mild distention with hypoactive bowel sounds. NG tube in place with no output); Negative Organomegaly
Rectal: Deferred by Provider
Musculoskeletal: No Clubbing, No Cyanosis, No Edema and Other (Right arm amputation)
Skin: Negative Rash
Neuro: Awake, Alert, Oriented, AO x 3 and Nonfocal/Grossly Intact
Data Reviewed
-
Diagnostic Radiology: Report Reviewed by me
CT Scan: Report Reviewed by me
Labs: Labs Reviewed by me
[2024-05-15] MEDS: ZOSYN 100 IV ×2 (14:13→20:23)
[2024-05-15] MEDS: STERILE WATER FOR INJECTION IV (14:49)
[2024-05-15 14:50] VITALS: BP 151/108
[2024-05-15] MEDS: LOVENOX 40 MG SC (17:06)
[2024-05-15 17:39] LABS: Glucose - Point of Care 124 mg/dl (70-99)
[2024-05-15 18:17] LABS: Mean Corp Hgb Conc. 33.3 g/dL (33.0-37.0); Mean Corpuscular Hgb 27.9 pg (27.0-31.0); Mean Corpuscular Volume 83.6 fL (81.0-99.0); Mean Platelet Volume 10.6 fL (7.4-10.4); Platelet Count 177 10^3/uL (130-400); Red Blood Cell Count 3.59 10^6/uL (4.20-5.40); Red Cell Dist. Width 21.7 % (11.5-14.5); White Blood Cell Count 17.6 10^3/uL (4.8-10.8)
[2024-05-15 18:23] LABS: Ammonia 30 umol/L (9-30)
[2024-05-15 18:25] LABS: ALT (SGPT) 28 U/L (0-35); AST (SGOT) 35 U/L (14-36); Albumin 1.9 g/dl (3.5-5.0); Alkaline Phosphatase 274 U/L (38-126); Blood Urea Nitrogen 10 mg/dl (7-17); Calcium 7.4 mg/dl (8.4-10.2); Carbon Dioxide 24 mmol/L (22-30); Chloride 103 mmol/L (98-107); Estimated Creatinine Clearance 119 ml/min; Glucose 136 mg/dl (70-99); Potassium 4.3 mmol/L (3.5-5.1); Sodium 131 mmol/L (135-145); Total Bilirubin 0.4 mg/dl (0.2-1.3); Total Protein 5.6 g/dl (6.3-8.2); eGFR > 60.00
[2024-05-15] MEDS: MORPHINE SULFATE 2 MG IV (18:43)
--- NOTE | 2024-05-15 19:44 | PTCARENOTE ---
rapid called for patient with difficulty speaking, shortness of breath and c/o increased abdominal pain. pt was provided oxygen which she continues to have in place at 2l/min for comfort. pt continues to have a distended abdomen with diminished
abdominal sounds and increased weeping present. pt was provided her stat one time dose of morphine with somewhat positive effectiveness (stated to this nurse that dilaudid is what works best with her abdominal pain) and her prn zofran for nausea
with positive effectiveness. ct scan scheduled for tomorrow morning. pt's bed is in the lowest position possible with call ferguson within reach
[2024-05-15 20:41] VITALS: BP 132/100
[2024-05-15] MEDS: LIDOCAINE 4% PATCH TOPICAL ×2 (21:51→21:59)
[2024-05-15] MEDS: ATIVAN 1 MG IV (21:52)
[2024-05-15] MEDS: NSS (PRESERVATIVE FREE) 0.5 ML IV (21:53)
[2024-05-15] MEDS: REMERON 15 MG PO (21:53)
[2024-05-15 23:07] VITALS: BP 141/101
[2024-05-16] VITALS (13 sets, daily range): BP systolic 114–147; BP diastolic 86–107; BMI 22.7
[2024-05-16] MEDS: NEURONTIN PO ×2 (01:10→10:11)
[2024-05-16] MEDS: ZOSYN 100 IV ×4 (02:45→19:52)
[2024-05-16] MEDS: ULTRAM 25 MG PO (06:02)
[2024-05-16] MEDS: ZOFRAN 4 MG IV (06:03)
[2024-05-16] MEDS: OMNIPAQUE 50 ML PO (08:11)
[2024-05-16] MEDS: LIDOCAINE 4% PATCH TOPICAL ×2 (08:12→08:20)
[2024-05-16] MEDS: HYDROPHOR 1 APPLIC TOPICAL (08:13)
[2024-05-16 09:00] LABS: Hematocrit 30.7 % (37.0-47.0); Hemoglobin 10.2 g/dL (12.0-16.0); Mean Corp Hgb Conc. 33.2 g/dL (33.0-37.0); Mean Corpuscular Hgb 27.9 pg (27.0-31.0); Mean Corpuscular Volume 84.1 fL (81.0-99.0); Mean Platelet Volume 10.6 fL (7.4-10.4); Platelet Count 182 10^3/uL (130-400); Red Blood Cell Count 3.65 10^6/uL (4.20-5.40); Red Cell Dist. Width 21.7 % (11.5-14.5); White Blood Cell Count 18.7 10^3/uL (4.8-10.8)
[2024-05-16 09:17] LABS: ALT (SGPT) 27 U/L (0-35); AST (SGOT) 36 U/L (14-36); Albumin 1.9 g/dl (3.5-5.0); Alkaline Phosphatase 280 U/L (38-126); Blood Urea Nitrogen 11 mg/dl (7-17); Calcium 7.7 mg/dl (8.4-10.2); Carbon Dioxide 26 mmol/L (22-30); Chloride 101 mmol/L (98-107); Estimated Creatinine Clearance 119 ml/min; Glucose 110 mg/dl (70-99); Potassium 4.2 mmol/L (3.5-5.1); Sodium 130 mmol/L (135-145); Total Bilirubin 0.6 mg/dl (0.2-1.3); Total Protein 5.5 g/dl (6.3-8.2); eGFR > 60.00
[2024-05-16] MEDS: SUBUTEX SL (10:12)
[2024-05-16] MEDS: VITAMIN C PO (10:12)
--- NOTE | 2024-05-16 12:22 | SUR.PHASEI ---
patient sedate, arouse to repeated name, minimal sedation in OR, [employer]ENDANT reports neuro status same as preop. When aroused - speaks in whisper. Abd distended taunt, firm - no audible bowel sounds, Dr Arevalo TT - she will see patient in room.
Remains in ST - as preop. BP usually elevated - no pain in foot.
[2024-05-16] MEDS: DELTASONE PO ×2 (13:27→13:41)
[2024-05-16] MEDS: KCL 20 MEQ PO (13:27)
[2024-05-16] MEDS: PROTONIX PO ×2 (13:27→13:40)
[2024-05-16] MEDS: ULTRAM PO (13:31)
--- NOTE | 2024-05-16 13:55 | PTCARENOTE ---
Received pt from PACU via bed at 1250, very drowsy but arousable to verbal, but then just falls back to sleep. RT foot dressing D+I, renzo wrap present. Will continue to monitor.
--- NOTE | 2024-05-16 14:43 | W.PN.SURGUPD ---
Surgical Update
Surgical Update
patient is s/p R hallux amputation revision
-Continue antibiotics for 7 days post op
-NWB to RLE
-Continue PT/OT
-Will continue to monitor, dressings can remain intact until POD#2
--- NOTE | 2024-05-16 15:11 | W.PN.HOSP.TC ---
Today's Communication/Plan
-
Increased abdominal distention and pain.
WBC 18 while on standing dose of prednisone 50 mg daily.
NG tube
CT scan of the abdomen pelvis with IV and enteral contrast
Lactic acid level
Antibiotics
N.p.o. IV fluids
Surgery consultation
Hold oral medications including Subutex.
Pain control with IV hydromorphone
Assessment / Plan
Assessment / Plan
Impression:
Patient is a 34y F with PMH significant for IVDA, untreated Hep C and cirrhosis with recent complicated hospital stay for Crohn's / SBO who presents to ED complaining of SOB, abdominal pain and distention.
Recurrent at least partial SBO suspected secondary to inflammatory process in patient with Crohn's disease
Crohn's disease.
Pancolitis
C. difficile antigen positive toxin negative recently treated with oral vancomycin.
Cirrhosis secondary to untreated hepatitis C.
Hepatic encephalopathy
Recurrent ascites.
Anasarca
Severe protein calorie malnutrition
Hypovolemic hyponatremia
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
Polysubstance abuse, former IVDA on Suboxone.
Anxiety disorder
Multiple skin breakdowns
Plan:
Recurrent SBO likely inflammatory in nature
CT scan with oral contrast in the ED consistent with increased from prior dilated bowel loops.
Not clear if this is Crohn's/inflammatory bowel disease exacerbation with inflammatory stricture versus prior ischemic bowel insult.
Patient has not established diagnosis of IBD as per records.
Overall improved with resolution of nausea
NG tube removed and diet has been advanced.
05/16 with worsening abdominal pain and distention.
Continue n.p.o.
Noted rising WBC while on prednisone
NG tube.
CT scan of the abdomen pelvis with IV and NG tube contrast.
Lactic acid level.
Surgery consultation.
Has been on antibiotics covering UTI/Zosyn
Hold oral medications
Recently treated for pancolitis
Stool cultures negative to date.
C. difficile toxin negative antigen positive completed course of vancomycin while on systemic antibiotics for pancolitis.
Monitor closely off antibiotics.
Hypotension
Hypovolemic hyponatremia
Patient with anasarca and third spacing.
Hold Lasix and spironolactone
Follow BMP.
Urinary tract infection
Urine culture with E. coli sensitive to Zosyn
Monitor for retention
Cirrhosis secondary to untreated hepatitis C.
Ascites status post paracentesis 05/04 1 L with no evidence of SBP.
Monitor for reaccumulation.
Hepatic encephalopathy. Mental status stable. Ammonia level 17 on presentation
With improvement of bowel function, resume lactulose
Right first great toe osteomyelitis status post partial amputation.
Completed course of antibiotics
Wound is dehiscent but not infected
Status post right first great toe partial amputation and revision on 05/16.
Multiple skin breakdowns.
Wound care consult
Severe Protein Calorie Malnutrition
Hypomagnesemia
- Severe malnutrition secondary to IVDA, cirrhosis, etc.
- Nutrition evaluation / support.
- Was on TPN for a time during prior hospital stay.
- Monitor and replace electrolytes as needed.
Anxiety Disorder
Polysubstance Use Disorder
- Patient denies any interim substance abuse / use since last hospitalization. She has been in SNF since that time.
- Has been on buprenorphine. Will attempt to wean off.
-Reintroduce Remeron, Neurontin when able to take p.o.
- Resume gabapentin / mirtazapine when able to take POs.
DVT Prophylaxis: Lovenox
Code Status: Full
Anticipated Discharge: > 48 hours
Subjective/Interval History
-
Date of Service: May 16, 2024
Objective Data
-
Labs:
Laboratory Results
05/16/24
08:42
WBC 18.7 H
Hgb 10.2 L
Hct 30.7 L
Plt Count 182
Sodium 130 L
Potassium 4.2
Chloride 101
Carbon Dioxide 26
BUN 11
Creatinine 0.5 L
Glucose 110 H
Calcium 7.7 L
Total Bilirubin 0.6
AST 36
ALT 27
Alkaline Phosphatase 280 H
Vital Signs:
Vital Signs
Temp Pulse Resp BP Pulse Ox
98.4 F 109 18 140/100 98
05/16/24 12:54 05/16/24 12:54 05/16/24 12:54 05/16/24 12:54 05/16/24 12:54
I&O
05/15/24 05/16/24 05/17/24
06:59 06:59 06:59
Intake Total 1100 / 1100 100 / 100
Balance 1100 / 1100 100 / 100
Physical Exam
-
General: No Apparent Distress
HEENT: Normocephalic, Atraumatic and Moist Mucous Membranes
Respiratory: Clear to Auscultation
Cardiac: Regular Rhythm and S1/S2; Negative Murmur, Rub or Gallop
GI: Other (Distended with diffuse tenderness); Negative Organomegaly
Rectal: Deferred by Provider
Musculoskeletal: No Clubbing, No Cyanosis, No Edema and Other (Right arm amputation)
Skin: Negative Rash
Neuro: Awake, Alert, Oriented, AO x 3 and Nonfocal/Grossly Intact
--- NOTE | 2024-05-16 15:24 | W.PN.GI.CBS2 ---
Addendum entered and electronically signed by Avelina Arevalo MD 05/16/24 17:56:
I saw and examined the patient.
The [employer] HAND's note was reviewed and I agree with the note.
Comment: Received a call from Dr. Avila from preop area on his assessment she was noted to have more distention and she was scheduled for a right halix amputation revision today. Saw patient after the surgery and she does have chronic distention
but more distended today and complaining of more pain also. Discussed with Dr. Garg and Dr. Linton from surgery extensively. This is an unfortunate patient who has multiple comorbidities and will need eventual surgical resection for her
stricture which could be most likely ischemic versus less likely Crohn's. She has been on chronic steroids will start to taper her and she will also need TPN for severe malnutrition and hypoalbuminemia in anticipation of resection of strictured
segment plus or minus diverting ostomy. Keep her n.p.o. with NG tube to intermittent suction. She also has hep C which is untreated and cirrhosis secondary to it with ascites and may need paracenteses as needed. scheduled for repeat CT today.
Original Note:
Today's Communication / Plan
-
Etiology of ongoing obstructive process related to underlying crohn's though bx from [place] not conclusion vs ischemic related as all GI issues occurred after from prior relapse in October with arm amp/ ? hypoxic episode/cocaine use with continued
recovery ? stricturing disease vs other
pt for OR for hallux revision but noted with continued distention and pain and asked for reconsult
reviewed with Dr. Arevalo/Dr. Garg
for surgical eval -- review with Dr. Linton with concern for ongoing obstructive process -- t/c TPN with persistent hypoalbuminemia
plan for NGT for decompression then Abd Xray
NPO
will change steroid to IV Prednisone 50mg converts to 40mg Solumedrol and will need to continue taper
hold Miralax for now with bloating
eventual OP eval for hep C that has not been treated
keep electrolytes corrected
eventual repeat colonoscopy as noted with adenomatous tissue on sigmoid polyp on prior colonoscopy
Assessment / Plan
-
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
fascitis/compartment syndrome, SBO, ? hypoxic brain injury with drug overdose, and recently diagnosed Crohn's disease (not on any maintenance therapy- due follow up next week at [facility]), who presented to the ED from rehab facility for
abdominal pain and distention. In review with patient she had hx drug use but was well until October 2023 when she had relapse in [place] leading to arm injury. Since that time she has not been well with admission to [facility], [facility]
and now [place]. She had recent extended admission 04/01- 05/04 with multiple issues including concern for partial small bowel obstruction. She was placed on IV steroid with concern for underlying crohn disease with initial improved CRP
and discharged on taper. fecal Iglesia 04/02 >3000. She had multiple other issues during admission including HE with elevated ammonia level with need for lactulose therapy, anasarca, severe hypoalbuminemia, c-diff, osteomyelitis, with partial toe
amp, + drug screen 04/02 on admission including Fentanyl and cocaine, and psych follow with wean of Suboxone.
-abdominal pain
-abnormal CT severe SB dilatation concerning for developing SBO progressed as noted in past
-hypotension
-hx pancolitis with improvement on follow up CT on admission
-hep C - untreated, severe diffuse hepatic steatosis- prior ALT elevation
-chronic splenic infarct per CT
- hx HE elevated ammonia
-recent concern for Crohn's disease on steroids prior pentasa, fecal iglesia >3000 bx not conclusive for IBD per review
-osteomyelitis/toe amp then revision with chronic alk phos elevation
-leukocytosis- persistent
-anemia
-coagulopathy -improving
- hypoalbuminemia
-+tox screen on prior admission
Personal history of polyps
other med problems:
-hx IVDA
-bipolar
-RUQ amputation after drug relapse October 2023
-? hypoxic brain injury
-prior hep A +
-GERD
-ischial breakdown
PLAN:
Etiology of ongoing obstructive process related to underlying crohn's though bx from [place] not conclusion vs ischemic related as all GI issues occurred after from prior relapse in October with arm amp/ ? hypoxic episode/cocaine use with continued
recovery ? stricturing disease vs other
pt for OR for hallux revision but noted with continued distention and pain and asked for reconsult
reviewed with Dr. Arevalo/Dr. Garg
for surgical eval -- review with Dr. Linton with concern for ongoing obstructive process -- t/c TPN with persistent hypoalbuminemia
plan for NGT for decompression then Abd Xray
NPO
will change steroid to IV Prednisone 50mg converts to 40mg Solumedrol and will need to continue taper
hold Miralax for now with bloating
eventual OP eval for hep C that has not been treated
keep electrolytes corrected
eventual repeat colonoscopy as noted with adenomatous tissue on sigmoid polyp on prior colonoscopy
Subjective
Subjective
Date of Service: May 16, 2024
pt complains of continued abdominal pain post toe surgery
Objective
Data Reviewed
Laboratory Data:
Laboratory Results
05/16/24 08:42
05/16/24 08:42
Laboratory Results
PT 15.5 Sec (11.4-14.6) H 05/10/24 23:44
INR 1.20 05/10/24 23:44
Magnesium 1.5 mg/dl (1.6-2.3) L 05/10/24 23:44
Total Bilirubin 0.6 mg/dl (0.2-1.3) 05/16/24 08:42
AST 36 U/L (14-36) 05/16/24 08:42
ALT 27 U/L (0-35) 05/16/24 08:42
Alkaline Phosphatase 280 U/L (38-126) H 05/16/24 08:42
Lipase 17 U/L (23-300) L 05/10/24 23:44
Vital Signs and I&O:
Vital Signs
Temp Pulse Resp BP Pulse Ox
98.4 F 109 18 140/100 98
05/16/24 12:54 05/16/24 12:54 05/16/24 12:54 05/16/24 12:54 05/16/24 12:54
I&O
05/15/24 05/16/24 05/17/24
06:59 06:59 06:59
Intake Total 1100 / 1100 100 / 100
Balance 1100 / 1100 100 / 100
Physical Exam
Physical Exam
HEENT: Anicteric and Moist mucous membranes
Cardiology: Other (tachy)
Pulmonary: Clear
GI: Distended and Tender (diffuse )
Extremities: No Edema
Neuro: Other (sleepy but arousable )
[2024-05-16] MEDS: DILAUDID 1 MG IV ×2 (15:42→21:07)
--- NOTE | 2024-05-16 16:00 | CM ---
Chart reviewed. R hallux amputation.
PT/OT cont to recommend skilled rehab
Spoke w/ [facility], per [facility], facility can accept pt back at d/c and assist w/ LTC application and Medicaid application. Jazmin stated she will connect w/ her contact regarding the one time contract w/ pt's insurance that was obtained
during pt's prev hospital stay and inform of pt's hospitalization again and work on updating/adjusting contract.
CM spoke w/ pt's father re d/c planning. CM discussed the multiple referrals sent for rehab and their inability to accept due to pt's current care needs. CM informed that [facility] can accept pt back and assist them w/ LTC and Medicaid
applications. Pt's father stated pt returning to [facility] is not an option neither is her returning home due to her extensive care needs. CM stated to pt's father that [facility] has a sr. social media & mobile manager that can assist w/ transferring pt to another
facility. CM informed pt's father that he can also search and call some facilities as well.
Pt's father stated he has to speak w/ pt about plan and what she wants to do, though he knows she will disagree w/ returning to [facility].
Additional facilities to be explored. CM will cont to work w/ family on d/c planning
Plan: SNF being recommended w/ poss transition to LTC
--- NOTE | 2024-05-16 16:11 | W.PN.GS2 ---
Addendum entered and electronically signed by Crescencio Gonzalez MD 05/17/24 08:16:
Delayed entry note, patient seen and examined on 05/16/2024.
I saw and examined the patient independently.
The [employer] Supervisor's note was reviewed and I agree with the note, assessment and plan except where noted below.
Comment: This is a 34-year-old female with a history of IV drug abuse who presents with recurrent obstructive symptoms likely secondary to stricture of unclear etiology, presumed Crohn's though this is not biopsy-proven and given her timeline and
radiographic findings would favor ischemic etiology.
N.p.o., NG tube, continue IV fluids for now.
Severe protein calorie malnutrition will need TPN. A.m. nutritional labs ordered.
Ultimately I do think that she will need surgery to correct her obstruction. However given her malnutrition, ascites and prolonged high-dose steroid use she has at high risk for postoperative morbidity and complications.
She may best be served by a long course of TPN and the weaning of steroids prior to undertaking surgical resection. I did discuss that depending on the timing he would consider primary anastomosis versus primary anastomosis and diverting loop
ileostomy depending on intraoperative findings of the tissue quality.
Appreciate GI involvement, particularly with steroid weaning.
General surgery will follow
Original Note:
Today's Communication / Plan
-
TPN to start tomorrow
NGT to [facility]
Assessment / Plan
-
34 yo female with h/o IVDA presenting with recurrent obstructive symptoms secondary to stricture of unclear etiology Crohns vs ischemic. ?history of Crohn's for which she has been on steroids without much benefit as well as recent ischemic event in
October during a drug OD which is when her GI symptoms began. Recently treated for pancolitis, C. difficile toxin negative antigen positive completed course of vancomycin.
POD 0 R hallux amputation revision with podiatry
Afebrile, tachycardic, BP stable
Rising leukocytosis.
ABD distention with increasing pain. NGT placed this afternoon with thick bilious outputs.
--Continue NPO/NGT
--Bowel regimen on hold
--Severe protein calorie malnutrition, will need TPN. Dietary consult placed, will check mag, phos, triglycerides, prealb, cmp in am
--Repeat CT pending
--Anticipate she will require surgery to remove segment of bowel that is strictured +/- diverting ostomy. Challenging situation in light of her malnourishment and senior living steroid use as well as chronic liver disease (Hep C untreated) with ascites.
Case discussed with GI who will be weaning down steroids. Timing of surgery TBD.
Subjective Data
-
Date of Service: May 16, 2024
Patient seen and examined at bedside with Dr. Gonzalez. Notes increasing abdominal pain. Diminished appetite over the past days with nausea. Vomiting today with progression of symptoms.
Objective Data
-
Intake and Output
05/15/24 05/16/24 05/17/24
06:59 06:59 06:59
Intake Total 1100 / 1100 100 / 100
Balance 1100 / 1100 100 / 100
Intake:
Oral fluids 1100 / 1100
IV fluids (Total) 100 / 100
normosol 100 / 100
Other:
How many times incontinent 1
MODERATE amount urine
Vital Signs
Temp Pulse Resp BP Pulse Ox
98.9 F 116 18 137/100 94
05/16/24 15:27 05/16/24 15:27 05/16/24 15:27 05/16/24 15:27 05/16/24 15:27
Lab Results
05/16/24 08:42
05/16/24 08:42
Calcium 7.7 mg/dl (8.4-10.2) L 05/16/24 08:42
Magnesium 1.5 mg/dl (1.6-2.3) L 05/10/24 23:44
Total Bilirubin 0.6 mg/dl (0.2-1.3) 05/16/24 08:42
Direct Bilirubin 0.3 mg/dl (0.0-0.4) 05/11/24 04:38
AST 36 U/L (14-36) 05/16/24 08:42
ALT 27 U/L (0-35) 05/16/24 08:42
Alkaline Phosphatase 280 U/L (38-126) H 05/16/24 08:42
Total Protein 5.5 g/dl (6.3-8.2) L 05/16/24 08:42
Albumin 1.9 g/dl (3.5-5.0) L 05/16/24 08:42
Physical Exam
-
Gen: NAd
Abd: soft, distended, diffuse mild ttp
NGT with thick yellow/green sludge
[2024-05-16] MEDS: SOLU-MEDROL PF 20 MG IV (16:39)
[2024-05-16] MEDS: LOVENOX 40 MG SC (16:40)
[2024-05-16 19:03] LABS: Lactic Acid 1.3 mmol/L (0.7-2.0)
[2024-05-17] MEDS: ZOSYN 100 IV ×4 (01:42→19:47)
[2024-05-17] MEDS: DILAUDID 1 MG IV ×6 (01:42→21:32)
[2024-05-17 03:00] VITALS: BP 127/97
[2024-05-17] MEDS: SOLU-MEDROL PF 20 MG IV (03:03)
[2024-05-17 03:49] VITALS: BMI 22.5
--- NOTE | 2024-05-17 07:28 | W.PN.SURGUPD ---
Surgical Update
Surgical Update
patient is s/p R hallux amputation revision 05/16. Recovering well this AM
-Patient seen and evaluated at bedside. Dressings C/D/I
-Continue antibiotics for 7 days post op
-NWB to RLE
-Continue PT/OT
-Will continue to monitor, dressings can remain intact until POD#2-3 to be changed by surgical team
[2024-05-17 07:30] VITALS: BP 118/89
[2024-05-17] MEDS: HYDROPHOR 1 APPLIC TOPICAL (08:11)
[2024-05-17] MEDS: NSS (PRESERVATIVE FREE) 10 ML IV (08:12)
[2024-05-17] MEDS: OMNIPAQUE 50 ML PO (08:12)
[2024-05-17] MEDS: LIDOCAINE 4% PATCH TOPICAL (08:12)
[2024-05-17] MEDS: PROTONIX IV 40 MG IV (08:12)
[2024-05-17] MEDS: VITAMIN C 500 MG PO (08:13)
[2024-05-17 08:43] LABS: ALT (SGPT) 27 U/L (0-35); AST (SGOT) 45 U/L (14-36); Albumin 1.7 g/dl (3.5-5.0); Alkaline Phosphatase 256 U/L (38-126); Blood Urea Nitrogen 13 mg/dl (7-17); Calcium 7.1 mg/dl (8.4-10.2); Carbon Dioxide 26 mmol/L (22-30); Chloride 100 mmol/L (98-107); Estimated Creatinine Clearance 119 ml/min; Glucose 94 mg/dl (70-99); Magnesium 1.7 mg/dl (1.6-2.3); Phosphorus 4.1 mg/dl (2.5-4.5); Sodium 129 mmol/L (135-145); Total Bilirubin 0.6 mg/dl (0.2-1.3); Total Protein 4.9 g/dl (6.3-8.2); Triglycerides 128 mg/dl (10-149); eGFR > 60.00
[2024-05-17 08:45] LABS: Hematocrit 26.5 % (37.0-47.0); Hemoglobin 9.3 g/dL (12.0-16.0); Mean Corp Hgb Conc. 35.1 g/dL (33.0-37.0); Mean Corpuscular Hgb 28.7 pg (27.0-31.0); Mean Corpuscular Volume 81.8 fL (81.0-99.0); Platelet Count 198 10^3/uL (130-400); Red Blood Cell Count 3.24 10^6/uL (4.20-5.40); Red Cell Dist. Width 22.5 % (11.5-14.5); White Blood Cell Count 14.5 10^3/uL (4.8-10.8)
--- NOTE | 2024-05-17 08:45 | W.PN.GI.CBS2 ---
Today's Communication / Plan
-
TPN
NPO
NGT
Assessment / Plan
-
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
fascitis/compartment syndrome, SBO, ? hypoxic brain injury with drug overdose, and recently diagnosed Crohn's disease (not on any maintenance therapy- due follow up next week at [facility]), who presented to the ED from rehab facility for
abdominal pain and distention. In review with patient she had hx drug use but was well until October 2023 when she had relapse in [place] leading to arm injury. Since that time she has not been well with admission to [facility], [facility]
and now [facility]. She had recent extended admission 04/01- 05/04 with multiple issues including concern for partial small bowel obstruction. She was placed on IV steroid with concern for underlying crohn disease with initial improved CRP
and discharged on taper. fecal Iglesia 04/02 >3000. She had multiple other issues during admission including HE with elevated ammonia level with need for lactulose therapy, anasarca, severe hypoalbuminemia, c-diff, osteomyelitis, with partial toe
amp, + drug screen 04/02 on admission including Fentanyl and cocaine, and psych follow with wean of Suboxone.
-abdominal pain
-abnormal CT severe SB dilatation concerning for developing SBO progressed as noted in past
-hypotension
-hx pancolitis with improvement on follow up CT on admission
-hep C - untreated, severe diffuse hepatic steatosis- prior ALT elevation
-chronic splenic infarct per CT
- hx HE elevated ammonia
-recent concern for Crohn's disease on steroids prior pentasa, fecal iglesia >3000 bx not conclusive for IBD per review
-osteomyelitis/toe amp then revision with chronic alk phos elevation
-leukocytosis- persistent
-anemia
-coagulopathy -improving
- hypoalbuminemia
-+tox screen on prior admission
Personal history of polyps
other med problems:
-hx IVDA
-bipolar
-RUQ amputation after drug relapse October 2023
-? hypoxic brain injury
-prior hep A +
-GERD
-ischial breakdown
PLAN:
Etiology of ongoing obstructive process related to underlying crohn's though bx from [place] not conclusion vs ischemic related as all GI issues occurred after from prior relapse in October with arm amp/ ? hypoxic episode/cocaine use with continued
recovery ? stricturing disease vs other
keep NPO
consult renal for half-way TPN
Needs eventual surgery for the stricture to prevent recurrence of partial small bowel obstruction did not have much improvement with chronic prednisone most likely is ischemic stricture
May need resection of the stricture plus or minus diverting ostomy DW and 05/16
will change steroid to IV Prednisone 50mg converts to 40mg Solumedrol and will need to continue taper
eventual OP eval for hep C cirrhosis that has not been treated, ascites tap PRN
keep electrolytes corrected
eventual repeat colonoscopy as noted with adenomatous tissue on sigmoid polyp on prior colonoscopy
Subjective
Subjective
Date of Service: May 17, 2024
NG tube with 250 mL of thick bilious feculent material. Abdomen is still distended but less pain is less, repeat CT is pending,
Objective
Data Reviewed
Laboratory Data:
Laboratory Results
05/17/24 07:51
Laboratory Results
PT 15.5 Sec (11.4-14.6) H 05/10/24 23:44
INR 1.20 05/10/24 23:44
Phosphorus 4.1 mg/dl (2.5-4.5) 05/17/24 07:51
Magnesium 1.7 mg/dl (1.6-2.3) 05/17/24 07:51
Total Bilirubin 0.6 mg/dl (0.2-1.3) 05/17/24 07:51
AST 45 U/L (14-36) H 05/17/24 07:51
ALT 27 U/L (0-35) 05/17/24 07:51
Alkaline Phosphatase 256 U/L (38-126) H 05/17/24 07:51
Lipase 17 U/L (23-300) L 05/10/24 23:44
Vital Signs and I&O:
Vital Signs
Temp Pulse Resp BP Pulse Ox
97.6 F 117 18 127/97 98
05/17/24 03:00 05/17/24 03:00 05/17/24 03:00 05/17/24 03:00 05/17/24 03:00
I&O
05/16/24 05/17/24 05/18/24
06:59 06:59 06:59
Intake Total 1100 / 1100 620 / 620
Output Total 225 / 225
Balance 1100 / 1100 395 / 395
Physical Exam
Physical Exam
Cardiology: Normal Sinus Rhythm
Pulmonary: Clear
GI: Soft, Distended, Tender (Mild diffuse tenderness more in the upper abdomen) and Other (Hypoactive bowel sounds)
[2024-05-17 09:56] LABS: Calprotectin, Fecal 1850 ug/g (<=49)
[2024-05-17 11:50] VITALS: BP 105/74
[2024-05-17 15:00] VITALS: BP 117/83
[2024-05-17] MEDS: SOLU-MEDROL PF 15 MG IV (15:24)
--- NOTE | 2024-05-17 15:34 | W.PN.HOSP.TC ---
Today's Communication/Plan
-
NG tube
TPN
IV antibiotics.
IV steroids.
Assessment / Plan
Assessment / Plan
Impression:
Patient is a 34y F with PMH significant for IVDA, untreated Hep C and cirrhosis with recent complicated hospital stay for Crohn's / SBO who presents to ED complaining of SOB, abdominal pain and distention.
Recurrent at least partial SBO suspected secondary to inflammatory process in patient with Crohn's disease
Crohn's disease.
Pancolitis
C. difficile antigen positive toxin negative recently treated with oral vancomycin.
Cirrhosis secondary to untreated hepatitis C.
Hepatic encephalopathy
Recurrent ascites.
Anasarca
Severe protein calorie malnutrition
Hypovolemic hyponatremia
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
Polysubstance abuse, former IVDA on Suboxone.
Anxiety disorder
Multiple skin breakdowns
Plan:
Recurrent SBO likely inflammatory in nature
CT scan with oral contrast in the ED consistent with increased from prior dilated bowel loops.
Not clear if this is Crohn's/inflammatory bowel disease exacerbation with inflammatory stricture versus prior ischemic bowel insult.
Patient has not established diagnosis of IBD as per records
05/16 with worsening abdominal pain and distention.
Continue n.p.o.
Noted rising WBC while on prednisone
CT scan of the abdomen pelvis 05/17 consistent with small bowel obstruction? Inflammatory secondary to Crohn's disease
Continue NG tube
TPN
Transition to IV corticosteroids as per GI
Has been on antibiotics covering UTI/Zosyn
Hold oral medications
Recently treated for pancolitis
Stool cultures negative to date.
C. difficile toxin negative antigen positive completed course of vancomycin while on systemic antibiotics for pancolitis.
Monitor closely off antibiotics.
Hypotension
Hypovolemic hyponatremia
Patient with anasarca and third spacing.
Hold Lasix and spironolactone
Follow BMP.
Urinary tract infection
Urine culture with E. coli sensitive to Zosyn
Monitor for retention
Cirrhosis secondary to untreated hepatitis C.
Ascites status post paracentesis 05/04 1 L with no evidence of SBP.
Monitor for reaccumulation.
Hepatic encephalopathy. Mental status stable. Ammonia level 17 on presentation
With improvement of bowel function, resume lactulose
Right first great toe osteomyelitis status post partial amputation.
Completed course of antibiotics
Wound is dehiscent but not infected
Status post right first great toe partial amputation and revision on 05/16.
Multiple skin breakdowns.
Wound care consult
Severe Protein Calorie Malnutrition
Hypomagnesemia
- Severe malnutrition secondary to IVDA, cirrhosis, etc.
- Nutrition evaluation / support.
- Was on TPN for a time during prior hospital stay.
- Monitor and replace electrolytes as needed.
Anxiety Disorder
Polysubstance Use Disorder
- Patient denies any interim substance abuse / use since last hospitalization. She has been in SNF since that time.
- Has been on buprenorphine. Will attempt to wean off.
-Reintroduce Remeron, Neurontin when able to take p.o.
- Resume gabapentin / mirtazapine when able to take POs.
DVT Prophylaxis: Lovenox
Code Status: Full
Anticipated Discharge: > 48 hours
Subjective/Interval History
-
Date of Service: May 17, 2024
Objective Data
-
Labs:
Laboratory Results
05/17/24 05/17/24
07:51 10:53
WBC 14.5 H
Hgb 9.3 L
Hct 26.5 L
Plt Count 198
Sodium 129 L Cancelled
Potassium 4.0 Cancelled
Chloride 100 Cancelled
Carbon Dioxide 26 Cancelled
BUN 13 Cancelled
Creatinine 0.4 L Cancelled
Glucose 94 Cancelled
Calcium 7.1 L Cancelled
Total Bilirubin 0.6 Cancelled
AST 45 H Cancelled
ALT 27 Cancelled
Alkaline Phosphatase 256 H Cancelled
Vital Signs:
Vital Signs
Temp Pulse Resp BP Pulse Ox
97.4 F 106 16 105/74 96
05/17/24 11:50 05/17/24 11:50 05/17/24 11:50 05/17/24 11:50 05/17/24 11:50
I&O
05/16/24 05/17/24 05/18/24
06:59 06:59 06:59
Intake Total 1100 / 1100 620 / 620
Output Total 225 / 225
Balance 1100 / 1100 395 / 395
Physical Exam
-
General: No Apparent Distress
HEENT: Normocephalic, Atraumatic and Moist Mucous Membranes
Respiratory: Clear to Auscultation
Cardiac: Regular Rhythm and S1/S2; Negative Murmur, Rub or Gallop
GI: Other (Distended with diffuse tenderness. NG tube in); Negative Organomegaly
Rectal: Deferred by Provider
Musculoskeletal: No Clubbing, No Cyanosis, No Edema and Other (Right arm amputation)
Skin: Negative Rash
Neuro: Awake, Alert, Oriented, AO x 3 and Nonfocal/Grossly Intact
[2024-05-17] MEDS: LOVENOX 40 MG SC (17:15)
--- NOTE | 2024-05-17 17:37 | W.PN.GS2 ---
Today's Communication / Plan
-
--Continue NPO/NGT
--TPN
--Wean steroids
--Tentative plan for delayed operative intervention in 2 to 4 weeks following steroid wean and improvement in her nutrition
Assessment / Plan
-
34 yo female with h/o IVDA presenting with recurrent obstructive symptoms secondary to stricture of unclear etiology Crohns vs ischemic. ?history of Crohn's for which she has been on steroids without much benefit as well as recent ischemic event in
October during a drug OD which is when her GI symptoms began. Recently treated for pancolitis, C. difficile toxin negative antigen positive completed course of vancomycin.
POD#1 R hallux amputation revision with podiatry
Afebrile, tachycardic, BP stable
Leukocytosis trending down
ABD distention with increasing pain. NGT placed
Repeat CT on 05/17: Stable and significant dilation of the small bowel with air-fluid levels, and an apparent transition point within the RLQ in the mid to distal ileum. Small bowel loops with slight stranding and mild wall thickening. No evidence
of pneumatosis or free intraperitoneal air. Ascites and cirrhotic appearing liver.
In-depth discussion had with both patient and her father via iPad. Reviewed her failure of medical management including bowel rest and treatment by GI for a Crohn's flare with high-dose steroids. She has had little to no improvement both
clinically as well as radiographically. Recommend surgical intervention as next line of treatment. Unfortunately, she is at significantly high risk for operative complications at this time given her underlying cirrhosis, malnourishment, and
immunosuppression. Operative intervention at this time would likely involve exploratory laparotomy with small bowel resection, anastomosis, and diverting loop ileostomy. Her postoperative course would be complicated by potential leakage of
cirrhotic fluid, parastomal hernia formation, potential high ileostomy output, and general care given her RUE amputation. We discussed options for delayed operative intervention including NPO, NGT decompression, and TPN for period of weeks to
optimize her operative risks. During this time she would be weaned off steroids. Plan would be for operative intervention in 2 to 4 weeks. The second option is likely in her best interest and the ultimate recommendation. Patient and her father
would like to consider other options. All questions answered.
--Continue NPO/NGT
--TPN
--Wean steroids
--Tentative plan for delayed operative intervention in 2 to 4 weeks following steroid wean and improvement in her nutrition
Subjective Data
-
Date of Service: May 17, 2024
Denies worsening abdominal pain, nausea, or vomiting. Continues to pass flatus and loose nonbloody stools. Afebrile.
Objective Data
-
Intake and Output
05/16/24 05/17/24 05/18/24
06:59 06:59 06:59
Intake Total 1100 / 1100 620 / 620
Output Total 225 / 225
Balance 1100 / 1100 395 / 395
Intake:
Oral fluids 1100 / 1100 120 / 120
IV fluids (Total) 100 / 100
normosol 100 / 100
IV piggybacks 400 / 400
Amount instilled into GI Tube ( 0 / 0
Total)
[place] Sump 0 / 0
Output:
Gastrointestinal tube output ( 225 / 225
Total)
[place] Sump 225 / 225
Other:
How many times incontinent 1
MODERATE amount urine
How many times incontinent 2
SATURATED amount urine
Vital Signs
Temp Pulse Resp BP Pulse Ox
97.2 F 112 16 117/83 99
05/17/24 15:00 05/17/24 15:00 05/17/24 15:00 05/17/24 15:00 05/17/24 15:00
Lab Results
05/17/24 07:51
05/17/24 10:53
Calcium Cancelled 05/17/24 10:53
Phosphorus Cancelled 05/17/24 10:53
Magnesium Cancelled 05/17/24 10:53
Total Bilirubin Cancelled 05/17/24 10:53
Direct Bilirubin 0.3 mg/dl (0.0-0.4) 05/11/24 04:38
AST Cancelled 05/17/24 10:53
ALT Cancelled 05/17/24 10:53
Alkaline Phosphatase Cancelled 05/17/24 10:53
Total Protein Cancelled 05/17/24 10:53
Albumin Cancelled 05/17/24 10:53
Physical Exam
-
Gen: NAD
HEENT: gastric outputs
Abd: soft, NT, mild distension, non-peritoneal
[2024-05-17 20:10] VITALS: BP 121/89
[2024-05-17] MEDS: Parenteral Nutrition, Central 1200 IV (21:39)
[2024-05-17] MEDS: ZOFRAN 4 MG IV (22:27)
[2024-05-17 23:13] VITALS: BP 113/80
[2024-05-18] MEDS: DILAUDID 1 MG IV ×4 (01:00→10:26)
[2024-05-18] MEDS: ZOSYN 100 IV ×4 (01:01→19:42)
[2024-05-18 02:43] VITALS: BP 113/77
[2024-05-18] MEDS: SOLU-MEDROL PF 15 MG IV ×2 (03:15→16:46)
[2024-05-18 05:20] LABS: Glucose - Point of Care 151 mg/dl (70-99)
[2024-05-18 05:42] LABS: % Basophils 0.1 % (0-2); % Immature Granulocytes 3.5 % (0-0.5); % Lymphocytes 8.4 % (20.5-51.1); % Monocytes 3.9 % (1.7-9.3); % Neutrophils 84.1 % (42.2-75.2); Absolute Immature Granulocytes 0.4 10^3/uL (0-0.05); Absolute Lymphocytes 1.1 10^3/uL (1.2-3.4); Absolute Monocytes 0.5 10^3/uL (0.1-0.6); Absolute Neutrophils 10.5 10^3/uL (1.4-6.5); Hematocrit 23.8 % (37.0-47.0); Hemoglobin 7.8 g/dL (12.0-16.0); Mean Corp Hgb Conc. 32.8 g/dL (33.0-37.0); Mean Corpuscular Volume 85.3 fL (81.0-99.0); Mean Platelet Volume 10.6 fL (7.4-10.4); Nucleated Red Blood Cells % 0.3 %; Platelet Count 210 10^3/uL (130-400); Red Blood Cell Count 2.79 10^6/uL (4.20-5.40); Red Cell Dist. Width 22.1 % (11.5-14.5); White Blood Cell Count 12.5 10^3/uL (4.8-10.8)
[2024-05-18 06:00] VITALS: BMI 21.6
[2024-05-18 06:24] LABS: Blood Urea Nitrogen 10 mg/dl (7-17); Calcium 6.8 mg/dl (8.4-10.2); Carbon Dioxide 23 mmol/L (22-30); Chloride 100 mmol/L (98-107); Estimated Creatinine Clearance 119 ml/min; Glucose 131 mg/dl (70-99); Magnesium 1.9 mg/dl (1.6-2.3); Phosphorus 3.5 mg/dl (2.5-4.5); Potassium 3.5 mmol/L (3.5-5.1); Sodium 128 mmol/L (135-145); eGFR > 60.00
[2024-05-18 07:00] VITALS: BP 118/79
[2024-05-18] MEDS: CALCIUM GLUCONATE 100 IV (07:13)
[2024-05-18] MEDS: LIDOCAINE 4% PATCH TOPICAL ×2 (08:16)
[2024-05-18] MEDS: VITAMIN C PO (08:16)
[2024-05-18] MEDS: PROTONIX IV 40 MG IV (08:17)
[2024-05-18] MEDS: NSS (PRESERVATIVE FREE) 10 ML IV (08:17)
[2024-05-18] MEDS: HYDROPHOR 1 APPLIC TOPICAL (08:17)
--- NOTE | 2024-05-18 08:55 | W.PN.GS2 ---
Today's Communication / Plan
-
TPN
Assessment / Plan
-
34 yo female with h/o IVDA presenting with recurrent obstructive symptoms secondary to stricture of unclear etiology Crohns vs ischemic. ?history of Crohn's for which she has been on steroids without much benefit as well as recent ischemic event in
October during a drug OD which is when her GI symptoms began. Recently treated for pancolitis, C. difficile toxin negative antigen positive completed course of vancomycin.
POD#2 R hallux amputation revision with podiatry
Afebrile, tachycardic, BP stable
Leukocytosis trending down
ABD distention with increasing pain. NGT placed
Repeat CT on 05/17: Stable and significant dilation of the small bowel with air-fluid levels, and an apparent transition point within the RLQ in the mid to distal ileum. Small bowel loops with slight stranding and mild wall thickening. No evidence
of pneumatosis or free intraperitoneal air. Ascites and cirrhotic appearing liver.
Child class C, MELD 20 today
Prealbumin 04/01 - 6.3 Albumin 03/31 - 1.7 Transferrin ordered 05/18
05/17 - 7.0 05/17 - 1.7
In-depth discussion had with both patient and her father via iPad on 05/17. Reviewed her failure of medical management including bowel rest and treatment by GI for a Crohn's flare with high-dose steroids. She has had little to no improvement both
clinically as well as radiographically. Recommend surgical intervention as next line of treatment. Unfortunately, she is at significantly high risk for operative complications at this time given her underlying cirrhosis, malnourishment, and
immunosuppression. Operative intervention at this time would likely involve exploratory laparotomy with small bowel resection, anastomosis, and diverting loop ileostomy. Her postoperative course would be complicated by potential leakage of
cirrhotic fluid, parastomal hernia formation, potential high ileostomy output, and general care given her RUE amputation. We discussed options for delayed operative intervention including NPO, NGT decompression, and TPN for period of weeks to
optimize her operative risks. During this time she would be weaned off steroids. Plan would be for operative intervention in 2 to 4 weeks. The second option is likely in her best interest and the ultimate recommendation. Patient and her father
would like to consider other options. All questions answered.
--Continue NPO/NGT
--TPN renewed per Nutrition day 2 recs, sodium increased
--Trend nutritional markers, cirrhosis scores
--Wean steroids
--Tentative plan for delayed operative intervention in 2 to 4 weeks following steroid wean and improvement in her nutrition/liver disease status
Subjective Data
-
Date of Service: May 18, 2024
C/o restless night without sleep, rhinorrhea, NGT uncomfortable, denies abd pain, unsure of flatus/BM
Objective Data
-
Intake and Output
05/17/24 05/18/24 05/19/24
06:59 06:59 06:59
Intake Total 620 / 620 1120 / 1120
Output Total 225 / 225 400 / 400
Balance 395 / 395 720 / 720
Intake:
Oral fluids 120 / 120 920 / 920
IV fluids (Total) 100 / 100
normosol 100 / 100
IV piggybacks 400 / 400 200 / 200
Amount instilled into GI Tube ( 0 / 0
Total)
[place] Sump 0 / 0
Output:
Gastrointestinal tube output ( 225 / 225 400 / 400
Total)
[place] Sump 225 / 225 400 / 400
Other:
How many times incontinent 2 1
SATURATED amount urine
Vital Signs
Temp Pulse Resp BP Pulse Ox
97.7 F 102 18 118/79 99
05/18/24 07:00 05/18/24 07:00 05/18/24 07:00 05/18/24 07:00 05/18/24 07:00
Lab Results
05/18/24 05:18
05/18/24 05:18
Calcium 6.8 mg/dl (8.4-10.2) L* 05/18/24 05:18
Phosphorus 3.5 mg/dl (2.5-4.5) 05/18/24 05:18
Magnesium 1.9 mg/dl (1.6-2.3) 05/18/24 05:18
Total Bilirubin Cancelled 05/17/24 10:53
Direct Bilirubin 0.3 mg/dl (0.0-0.4) 05/11/24 04:38
AST Cancelled 05/17/24 10:53
ALT Cancelled 05/17/24 10:53
Alkaline Phosphatase Cancelled 05/17/24 10:53
Total Protein Cancelled 05/17/24 10:53
Albumin Cancelled 05/17/24 10:53
Physical Exam
-
Gen: NAD
Abd: soft, distended, nt
[2024-05-18 11:00] VITALS: BP 127/83
--- NOTE | 2024-05-18 11:14 | W.PN.GI.CBS2 ---
Today's Communication / Plan
-
Continue NPO, NGT, TPN
taper steroids
Assessment / Plan
-
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
fascitis/compartment syndrome, SBO, ? hypoxic brain injury with drug overdose, and recently diagnosed Crohn's disease (not on any maintenance therapy- due follow up next week at [facility]), who presented to the ED from rehab facility for
abdominal pain and distention. In review with patient she had hx drug use but was well until October 2023 when she had relapse in [place] leading to arm injury. Since that time she has not been well with admission to [facility], ammon washburn
and now [facility]. She had recent extended admission 04/01- 05/04 with multiple issues including concern for partial small bowel obstruction. She was placed on IV steroid with concern for underlying crohn disease with initial improved CRP
and discharged on taper. fecal [place] 04/02 >3000. She had multiple other issues during admission including HE with elevated ammonia level with need for lactulose therapy, anasarca, severe hypoalbuminemia, c-diff, osteomyelitis, with partial toe
amp, + drug screen 04/02 on admission including Fentanyl and cocaine, and psych follow with wean of Suboxone.
-abdominal pain
-abnormal CT severe SB dilatation concerning for developing SBO progressed as noted in past
-hypotension
-hx pancolitis with improvement on follow up CT on admission
-hep C - untreated, severe diffuse hepatic steatosis- prior ALT elevation
-chronic splenic infarct per CT
- hx HE elevated ammonia
-recent concern for Crohn's disease on steroids prior pentasa, fecal iglesia >3000 bx not conclusive for IBD per review
-osteomyelitis/toe amp then revision with chronic alk phos elevation
-leukocytosis- persistent
-anemia
-coagulopathy -improving
- hypoalbuminemia
-+tox screen on prior admission
Personal history of polyps
other med problems:
-hx IVDA
-bipolar
-RUQ amputation after drug relapse October 2023
-? hypoxic brain injury
-prior hep A +
-GERD
-ischial breakdown
PLAN:
SBO ? related to underlying crohn's though bx from [place] not conclusion vs ischemic- more likely related as all GI issues occurred after from prior relapse in October with arm amp/ ? hypoxic episode/cocaine use with continued recovery ?
stricturing disease vs other
05/17 CT shows sc emphysema unclear etiology no obvious pneumothorax noted no free air or abdominal viscus perforation noted
keep NPO
NGT to int suction
needs residential TPN
Needs eventual surgery for the stricture to prevent recurrence of partial small bowel obstruction did not have much improvement with chronic prednisone most likely is ischemic stricture
May need resection of the stricture plus or minus diverting ostomy
Started steroid taper on 05/16-need to taper slowly given her chronic use of steroids prior to this admission
eventual OP eval for hep C cirrhosis that has not been treated
ascites tap PRN-likely multifactorial from underlying cirrhosis and severe malnutrition with hypoalbuminemia
keep electrolytes corrected
eventual repeat colonoscopy as noted with adenomatous tissue on sigmoid polyp on prior colonoscopy
DW DR. Godwin and Dr. Garg
GI will s/o and will be available as needed
Subjective
Subjective
Date of Service: May 18, 2024
Abdomen is much less distended NG tube with a total of 600 mL of thick bilious and feculent material, overnight 100 cc, started on TPN, steroid taper was initiated 05/16
Objective
Data Reviewed
Laboratory Data:
Laboratory Results
05/18/24 05:18
05/18/24 05:18
Laboratory Results
PT 15.5 Sec (11.4-14.6) H 05/10/24 23:44
INR 1.20 05/10/24 23:44
Phosphorus 3.5 mg/dl (2.5-4.5) 05/18/24 05:18
Magnesium 1.9 mg/dl (1.6-2.3) 05/18/24 05:18
Total Bilirubin Cancelled 05/17/24 10:53
AST Cancelled 05/17/24 10:53
ALT Cancelled 05/17/24 10:53
Alkaline Phosphatase Cancelled 05/17/24 10:53
Lipase 17 U/L (23-300) L 05/10/24 23:44
Vital Signs and I&O:
Vital Signs
Temp Pulse Resp BP Pulse Ox
97.7 F 102 18 118/79 99
05/18/24 07:00 05/18/24 07:00 05/18/24 07:00 05/18/24 07:00 05/18/24 07:00
I&O
05/17/24 05/18/24 05/19/24
06:59 06:59 06:59
Intake Total 620 / 620 1120 / 1120
Output Total 225 / 225 400 / 400
Balance 395 / 395 720 / 720
05/17/24 CT of the abdomen and pelvis with oral and intravenous contrast
IMPRESSION: Subcutaneous emphysema within the left anterolateral lower chest wall, uncertain etiology. No evidence for pneumothorax. Atelectasis within the lower lungs.
Nasogastric tube with tip within the superior stomach.
Significant dilation of small bowel loops, extending into the region of the distal ileum. In the pelvis, there is increased enhancement of the wall of several loops of small bowel with slight stranding of the adjacent fat. Suggestion of a transition
in caliber in the right pelvis as described. Findings are compatible with small bowel obstruction, which is most likely on the basis of Crohn's disease.
No evidence of free intraperitoneal air.
Ascites present within the abdomen and pelvis, and could be multifactorial in this patient with cirrhosis as well as small bowel obstruction.
Cirrhotic liver. Fatty infiltration of the liver. There is a wedge-shaped area of enhancement within the posterior right lobe of the liver, most likely a transient hepatic perfusion anomaly, with no CT evidence for an underlying hepatic mass lesion.
The spleen is small and irregular, which can be seen in association with chronic inflammatory bowel disease. This finding is stable dating back to CT scan of March 31, 2024.
Moderate to severe subcutaneous edema. Incidental note is made of more localized edema within the right perineum when compared to the left.
Physical Exam
Physical Exam
Cardiology: Normal Sinus Rhythm
Pulmonary: Clear
GI: Soft and Distended (Much less distended on exam today, hypoactive bowel sounds)
--- NOTE | 2024-05-18 12:56 | CM ---
Chart reviewed. Plan of care ongoing.
Taper steroids, GI signed off at this time
Per general surg, tentative plan for delayed operative intervention in 2 to 4 weeks following steroid wean and improvement in her nutrition/liver disease status.
PT/OT cont to recommend SNF at this time. Extensive list of SNF referrals completed w/ inability to accept and/or no available beds.
[facility] willing to accept pt back at d/c
CM will cont to d/c plan w/ pt and her father.
Plan: CM will cont to follow pt's hospital course for d/c planning
[2024-05-18 13:26] LABS: Glucose - Point of Care 173 mg/dl (70-99)
[2024-05-18] MEDS: DILAUDID 2 MG IV ×3 (13:33→21:07)
[2024-05-18 15:00] VITALS: BP 118/77
--- NOTE | 2024-05-18 15:32 | W.PN.HOSP.TC ---
Today's Communication/Plan
-
NG tube remains. Monitor output.
TPN.
Slow steroid taper to avoid hypoadrenal state.
Continue antibiotics per
Continue right foot wound care.
Off Suboxone
Continue IV hydromorphone for pain.
Assessment / Plan
Assessment / Plan
Impression:
Patient is a 34y F with PMH significant for IVDA, untreated Hep C and cirrhosis with recent complicated hospital stay for Crohn's / SBO who presents to ED complaining of SOB, abdominal pain and distention.
Recurrent at least partial SBO suspected secondary to inflammatory process in patient with Crohn's disease
Crohn's disease.
Pancolitis
C. difficile antigen positive toxin negative recently treated with oral vancomycin.
Cirrhosis secondary to untreated hepatitis C.
Hepatic encephalopathy
Recurrent ascites.
Anasarca
Severe protein calorie malnutrition
Hypovolemic hyponatremia
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
Polysubstance abuse, former IVDA on Suboxone.
Anxiety disorder
Multiple skin breakdowns
Plan:
Recurrent SBO likely inflammatory in nature
CT scan with oral contrast in the ED consistent with increased from prior dilated bowel loops.
Not clear if this is Crohn's/inflammatory bowel disease exacerbation with inflammatory stricture versus prior ischemic bowel insult.
Patient has not established diagnosis of IBD as per records
05/16 with worsening abdominal pain and distention.
Continue n.p.o.
Noted rising WBC while on prednisone
CT scan of the abdomen pelvis 05/17 consistent with small bowel obstruction? Inflammatory secondary to Crohn's disease
Continue NG tube
TPN
Transition to IV corticosteroids as per GI and continue slow taper to avoid hypoadrenal state.
Has been on antibiotics covering UTI/Zosyn
Hold oral medications
Recently treated for pancolitis
Stool cultures negative to date.
C. difficile toxin negative antigen positive completed course of vancomycin while on systemic antibiotics for pancolitis.
Monitor closely off antibiotics.
Hypotension
Hypovolemic hyponatremia
Patient with anasarca and third spacing.
Hold Lasix and spironolactone
Follow BMP.
Urinary tract infection
Urine culture with E. coli sensitive to Zosyn
Monitor for retention
Cirrhosis secondary to untreated hepatitis C.
Ascites status post paracentesis 05/04 1 L with no evidence of SBP.
Monitor for reaccumulation.
Hepatic encephalopathy. Mental status stable. Ammonia level 17 on presentation
With improvement of bowel function, resume lactulose
Right first great toe osteomyelitis status post partial amputation.
Completed course of antibiotics
Wound is dehiscent but not infected
Status post right first great toe partial amputation and revision on 05/16.
Multiple skin breakdowns.
Wound care consult
Severe Protein Calorie Malnutrition
Hypomagnesemia
- Severe malnutrition secondary to IVDA, cirrhosis, etc.
- Nutrition evaluation / support.
- Was on TPN for a time during prior hospital stay.
- Monitor and replace electrolytes as needed.
Anxiety Disorder
Polysubstance Use Disorder
- Patient denies any interim substance abuse / use since last hospitalization. She has been in SNF since that time.
- Has been on buprenorphine. Will attempt to wean off.
-Reintroduce Remeron, Neurontin when able to take p.o.
- Resume gabapentin / mirtazapine when able to take POs.
DVT Prophylaxis: Lovenox
Code Status: Full
Anticipated Discharge: > 48 hours
Subjective/Interval History
-
Date of Service: May 18, 2024
Objective Data
-
Labs:
Laboratory Results
05/18/24
05:18
WBC 12.5 H
Hgb 7.8 L
Hct 23.8 L
Plt Count 210
Sodium 128 L
Potassium 3.5
Chloride 100
Carbon Dioxide 23
BUN 10
Creatinine 0.4 L
Glucose 131 H
Calcium 6.8 L*
Vital Signs:
Vital Signs
Temp Pulse Resp BP Pulse Ox
98.0 F 97 18 127/83 99
05/18/24 11:00 05/18/24 11:00 05/18/24 11:00 05/18/24 11:00 05/18/24 11:00
I&O
05/17/24 05/18/24 05/19/24
06:59 06:59 06:59
Intake Total 620 / 620 1120 / 1120
Output Total 225 / 225 400 / 400
Balance 395 / 395 720 / 720
Physical Exam
-
General: No Apparent Distress
HEENT: Normocephalic, Atraumatic and Moist Mucous Membranes
Respiratory: Clear to Auscultation
Cardiac: Regular Rhythm and S1/S2; Negative Murmur, Rub or Gallop
GI: Other (Distended with diffuse tenderness. NG tube in); Negative Organomegaly
Rectal: Deferred by Provider
Musculoskeletal: No Clubbing, No Cyanosis, No Edema and Other (Right arm amputation)
Skin: Negative Rash
Neuro: Awake, Alert, Oriented, AO x 3 and Nonfocal/Grossly Intact
[2024-05-18 16:50] LABS: Glucose - Point of Care 133 mg/dl (70-99)
[2024-05-18] MEDS: LOVENOX 40 MG SC (16:53)
[2024-05-18] MEDS: ZOFRAN 4 MG IV (17:17)
[2024-05-18 19:00] VITALS: BP 119/83
--- NOTE | 2024-05-18 20:28 | W.PN.SURGUPD ---
Surgical Update
Surgical Update
patient is s/p R hallux amputation revision 05/16. Endorsing pain to right foot
-Patient seen and evaluated at bedside. Dressings removed and surgical site examined. Surgical site is well coapted without signs of infection. Re-applied betadine DSD
-Right foot pain likely from compression from bandages and right foot swelling
-Left foot examined with granular wound bed and serous drainage. Applied betadine DSD
-NWB to RLE
-Continue PT/OT
-Recommend nursing dressing changes 3x weekly
-To right foot please apply betadine to all 5 toes (including surgical site and toe interspaces) followed by gauze and gregory wrap
-To left foot please apply betadine, gauze, ABDs, kerlix wrap
-Will continue to follow
[2024-05-18] MEDS: Parenteral Nutrition, Central 1300 IV (21:06)
[2024-05-18 23:00] VITALS: BP 112/76
[2024-05-19 00:29] LABS: Glucose - Point of Care 169 mg/dl (70-99)
[2024-05-19] MEDS: ZOSYN 100 IV ×4 (01:19→21:09)
[2024-05-19] MEDS: DILAUDID 2 MG IV ×7 (01:19→22:51)
[2024-05-19] MEDS: ZOFRAN 4 MG IV ×2 (01:26→21:57)
[2024-05-19 03:00] VITALS: BP 116/75
[2024-05-19] MEDS: SOLU-MEDROL PF 15 MG IV ×2 (04:35→16:22)
[2024-05-19 06:00] VITALS: BMI 21.0
[2024-05-19 06:13] LABS: Phosphorus 2.4 mg/dl (2.5-4.5)
[2024-05-19 08:00] VITALS: BP 101/69
--- NOTE | 2024-05-19 09:19 | WOUNDNOTE ---
[facility] RN Note: Confirmed with Dr. Ladd that patient is to by [facility]. Care plan updated. Podiatry managing patient's foot wounds.
[2024-05-19] MEDS: NSS (PRESERVATIVE FREE) 10 ML IV (09:20)
[2024-05-19] MEDS: PROTONIX IV 40 MG IV (09:20)
[2024-05-19] MEDS: VITAMIN C PO (09:21)
[2024-05-19] MEDS: LIDOCAINE 4% PATCH 1 PATCH TOPICAL (09:21)
[2024-05-19] MEDS: HYDROPHOR TOPICAL (09:43)
--- NOTE | 2024-05-19 10:36 | W.PN.GS2 ---
Today's Communication / Plan
-
`
Assessment / Plan
-
Assessment: 34 yo female with h/o IVDA presenting with recurrent obstructive symptoms secondary to stricture of unclear etiology Crohns vs ischemic. ?history of Crohn's for which she has been on steroids without much benefit as well as recent
ischemic event in October during a drug OD which is when her GI symptoms began. Recently treated for pancolitis, C. difficile toxin negative antigen positive completed course of vancomycin.
POD#2 R hallux amputation revision with podiatry
Repeat CT on 05/17: Stable and significant dilation of the small bowel with air-fluid levels, and an apparent transition point within the RLQ in the mid to distal ileum. Small bowel loops with slight stranding and mild wall thickening. No evidence
of pneumatosis or free intraperitoneal air. Ascites and cirrhotic appearing liver.
Significantly high risk for operative complications at this time given her underlying cirrhosis, malnourishment, and immunosuppression.
Operative intervention is anticipated to involve exploratory laparotomy with small bowel resection with probable anastomosis vs ileostomy. Her postoperative course would be complicated by potential leakage of cirrhotic fluid, parastomal hernia
formation, potential high ileostomy output, and general care given her RUE amputation.
The preferred sugical option is for delayed operative intervention including bowel rest and TPN for period of weeks to optimize her operative risks. During this time she would be weaned off steroids.
Plan would be for operative intervention in 2 to 4 weeks.
AFVSS
A.m. labs pending
Diminishing NG tube outputs
Plan:
--Continue NPO/NGT decompression today -> if NG tube outputs remain nonbilious and minimal then would likely remove understanding need for continued TPN to ensure full daily nutritional intake and plan not to attempt aggressive dietary advancement
given chronic partial small bowel obstructive symptoms that have reoccurred numerous times recently
--TPN will be renewed pending a.m. labs
--Trend nutritional markers, cirrhosis scores
--Wean steroids
--Tentative plan for delayed operative intervention in 2 to 4 weeks following steroid wean and improvement in her nutrition/liver disease status
Subjective Data
-
Date of Service: May 19, 2024
Patient seen and examined
A bit tearful/upset due to circumstances but consolable
Denies abdominal pain
No nausea
Complains of NG tube causing sore throat
Objective Data
-
Intake and Output
05/18/24 05/19/24 05/20/24
06:59 06:59 06:59
Intake Total 1120 / 1120 0 / 0
Output Total 400 / 400
Balance 720 / 720 0 / 0
Intake:
Oral fluids 920 / 920 0 / 0
IV piggybacks 200 / 200
Output:
Gastrointestinal tube output ( 400 / 400
Total)
[place] Sump 400 / 400
Other:
How many times incontinent 1 3 2
SATURATED amount urine
Vital Signs
Temp Pulse Resp BP Pulse Ox
97.4 F 77 20 101/69 100
05/19/24 08:00 05/19/24 08:00 05/19/24 08:00 05/19/24 08:00 05/19/24 08:00
Calcium 6.8 mg/dl (8.4-10.2) L* 05/18/24 05:18
Phosphorus 2.4 mg/dl (2.5-4.5) L 05/19/24 05:23
Magnesium 2.0 mg/dl (1.6-2.3) 05/19/24 05:23
Total Bilirubin Cancelled 05/17/24 10:53
Direct Bilirubin 0.3 mg/dl (0.0-0.4) 05/11/24 04:38
AST Cancelled 05/17/24 10:53
ALT Cancelled 05/17/24 10:53
Alkaline Phosphatase Cancelled 05/17/24 10:53
Total Protein Cancelled 05/17/24 10:53
Albumin Cancelled 05/17/24 10:53
Physical Exam
-
NAD AAOx3
ABD: Softly protuberant but not tensely distended. Tenderness palpation only in the right lower quadrant. No rebound, no rigidity, no guarding
NG tube in place - scant clearish fluid in tubing line in canister
[2024-05-19 12:11] LABS: Hematocrit 22.9 % (37.0-47.0); Hemoglobin 7.6 g/dL (12.0-16.0); Mean Corp Hgb Conc. 33.2 g/dL (33.0-37.0); Mean Corpuscular Hgb 28.3 pg (27.0-31.0); Mean Corpuscular Volume 85.1 fL (81.0-99.0); Mean Platelet Volume 10.8 fL (7.4-10.4); Platelet Count 244 10^3/uL (130-400); Red Blood Cell Count 2.69 10^6/uL (4.20-5.40); Red Cell Dist. Width 22.2 % (11.5-14.5); White Blood Cell Count 13.4 10^3/uL (4.8-10.8)
[2024-05-19 12:30] LABS: Glucose - Point of Care 163 mg/dl (70-99)
[2024-05-19 13:27] LABS: Blood Urea Nitrogen 10 mg/dl (7-17); Calcium 6.9 mg/dl (8.4-10.2); Carbon Dioxide 29 mmol/L (22-30); Chloride 102 mmol/L (98-107); Estimated Creatinine Clearance 119 ml/min; Glucose 144 mg/dl (70-99); Potassium 3.8 mmol/L (3.5-5.1); Sodium 131 mmol/L (135-145); eGFR > 60.00
--- NOTE | 2024-05-19 15:23 | W.PN.HOSP.TC ---
Today's Communication/Plan
-
NG tube monitoring output.
TPN
Follow electrolytes and hemoglobin.
Continue antibiotics
Continue IV steroids
Assessment / Plan
Assessment / Plan
Impression:
Patient is a 34y F with PMH significant for IVDA, untreated Hep C and cirrhosis with recent complicated hospital stay for Crohn's / SBO who presents to ED complaining of SOB, abdominal pain and distention.
Recurrent at least partial SBO suspected secondary to inflammatory process in patient with Crohn's disease
Crohn's disease.
Pancolitis
C. difficile antigen positive toxin negative recently treated with oral vancomycin.
Cirrhosis secondary to untreated hepatitis C.
Hepatic encephalopathy
Recurrent ascites.
Anasarca
Severe protein calorie malnutrition
Hypovolemic hyponatremia
Anemia of chronic disease
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
Polysubstance abuse, former IVDA on Suboxone.
Anxiety disorder
Multiple skin breakdowns
Plan:
Recurrent SBO likely inflammatory in nature
CT scan with oral contrast in the ED consistent with increased from prior dilated bowel loops.
Not clear if this is Crohn's/inflammatory bowel disease exacerbation with inflammatory stricture versus prior ischemic bowel insult.
Patient has not established diagnosis of IBD as per records
05/16 with worsening abdominal pain and distention.
Continue n.p.o.
Noted rising WBC while on prednisone
CT scan of the abdomen pelvis 05/17 consistent with small bowel obstruction? Inflammatory secondary to Crohn's disease
Continue NG tube
TPN
Transition to IV corticosteroids as per GI and continue slow taper to avoid hypoadrenal state.
Has been on antibiotics covering UTI/Zosyn
Hold oral medications
Recently treated for pancolitis
Stool cultures negative to date.
C. difficile toxin negative antigen positive completed course of vancomycin while on systemic antibiotics for pancolitis.
Anemia of chronic disease
Slowly trending down hemoglobin to sevens with no evidence of acute blood loss
Recent iron studies consistent with increased ferritin, although sufficient iron stores
Monitor closely
Consider transfusion if trending down below 7
Hypotension
Hypovolemic hyponatremia
Patient with anasarca and third spacing.
Hold Lasix and spironolactone
Follow BMP.
Urinary tract infection
Urine culture with E. coli sensitive to Zosyn
Monitor for retention
Cirrhosis secondary to untreated hepatitis C.
Ascites status post paracentesis 05/04 1 L with no evidence of SBP.
Monitor for reaccumulation.
Hepatic encephalopathy. Mental status stable. Ammonia level 17 on presentation
With improvement of bowel function, resume lactulose
Right first great toe osteomyelitis status post partial amputation.
Completed course of antibiotics
Wound is dehiscent but not infected
Status post right first great toe partial amputation and revision on 05/16.
Multiple skin breakdowns.
Wound care consult
Severe Protein Calorie Malnutrition
Hypomagnesemia
- Severe malnutrition secondary to IVDA, cirrhosis, etc.
- Nutrition evaluation / support.
- Was on TPN for a time during prior hospital stay.
- Monitor and replace electrolytes as needed.
Anxiety Disorder
Polysubstance Use Disorder
- Patient denies any interim substance abuse / use since last hospitalization. She has been in SNF since that time.
- Has been on buprenorphine. Will attempt to wean off.
-Reintroduce Remeron, Neurontin when able to take p.o.
- Resume gabapentin / mirtazapine when able to take POs.
DVT Prophylaxis: Lovenox
Code Status: Full
Anticipated Discharge: > 48 hours
Subjective/Interval History
-
Date of Service: May 19, 2024
Objective Data
-
Labs:
Laboratory Results
05/19/24
11:51
WBC 13.4 H
Hgb 7.6 L
Hct 22.9 L
Plt Count 244
Sodium 131 L
Potassium 3.8
Chloride 102
Carbon Dioxide 29
BUN 10
Creatinine 0.3 L
Glucose 144 H
Calcium 6.9 L*
Vital Signs:
Vital Signs
Temp Pulse Resp BP Pulse Ox
97.4 F 77 20 101/69 100
05/19/24 08:00 05/19/24 08:00 05/19/24 08:00 05/19/24 08:00 05/19/24 08:00
I&O
05/18/24 05/19/24 05/20/24
06:59 06:59 06:59
Intake Total 1120 / 1120 0 / 0
Output Total 400 / 400
Balance 720 / 720 0 / 0
Physical Exam
-
General: No Apparent Distress
HEENT: Normocephalic, Atraumatic and Moist Mucous Membranes
Respiratory: Clear to Auscultation
Cardiac: Regular Rhythm and S1/S2; Negative Murmur, Rub or Gallop
GI: Other (Distended with diffuse tenderness. NG tube in); Negative Organomegaly
Rectal: Deferred by Provider
Musculoskeletal: No Clubbing, No Cyanosis, No Edema and Other (Right arm amputation)
Skin: Negative Rash
Neuro: Awake, Alert, Oriented, AO x 3 and Nonfocal/Grossly Intact
[2024-05-19 16:00] VITALS: BP 119/82
[2024-05-19] MEDS: LOVENOX 40 MG SC (17:52)
[2024-05-19 17:55] LABS: Glucose - Point of Care 140 mg/dl (70-99)
[2024-05-19] MEDS: Parenteral Nutrition, Central 1350 IV (21:06)
[2024-05-19] MEDS: ANESTHETIC LOZENGE 1 LOZENGE PO (23:24)
[2024-05-19 23:36] VITALS: BP 128/90
[2024-05-20] MEDS: NSS (PRESERVATIVE FREE) 0.25 ML IV (01:05)
[2024-05-20] MEDS: ATIVAN 0.5 MG IV (01:05)
[2024-05-20] MEDS: ZOSYN 100 IV ×4 (01:09→20:15)
[2024-05-20] MEDS: DILAUDID 2 MG IV ×6 (01:51→22:23)
[2024-05-20] MEDS: SOLU-MEDROL PF 15 MG IV ×2 (04:55→16:55)
[2024-05-20] MEDS: DILAUDID IV (04:57)
[2024-05-20 06:00] VITALS: BMI 21.6
[2024-05-20 06:03] LABS: Blood Urea Nitrogen 10 mg/dl (7-17); Calcium 7.1 mg/dl (8.4-10.2); Carbon Dioxide 29 mmol/L (22-30); Chloride 105 mmol/L (98-107); Estimated Creatinine Clearance 119 ml/min; Glucose 117 mg/dl (70-99); Magnesium 2.2 mg/dl (1.6-2.3); Potassium 3.5 mmol/L (3.5-5.1); Sodium 134 mmol/L (135-145); eGFR > 60.00
[2024-05-20 06:04] LABS: Glucose - Point of Care 134 mg/dl (70-99)
[2024-05-20 06:07] LABS: % Basophils 0.2 % (0-2); % Eosinophils 0.1 % (0-6); % Lymphocytes 24.5 % (20.5-51.1); % Monocytes 4.7 % (1.7-9.3); % Neutrophils 66.5 % (42.2-75.2); Absolute Immature Granulocytes 0.5 10^3/uL (0-0.05); Absolute Monocytes 0.6 10^3/uL (0.1-0.6); Absolute Neutrophils 8.2 10^3/uL (1.4-6.5); Hematocrit 19.9 % (37.0-47.0); Hemoglobin 6.6 g/dL (12.0-16.0); Mean Corp Hgb Conc. 33.2 g/dL (33.0-37.0); Mean Corpuscular Hgb 28.4 pg (27.0-31.0); Mean Corpuscular Volume 85.8 fL (81.0-99.0); Mean Platelet Volume 10.2 fL (7.4-10.4); Nucleated Red Blood Cells % 1.2 %; Platelet Count 196 10^3/uL (130-400); Red Blood Cell Count 2.32 10^6/uL (4.20-5.40); Red Cell Dist. Width 23.6 % (11.5-14.5); White Blood Cell Count 12.4 10^3/uL (4.8-10.8)
--- NOTE | 2024-05-20 06:12 | PTCARENOTE ---
Patient`s morning labs resulted; critical lab value for hemiglobin at 6.6 and hematocrit at 19.9 reported to Carolynn Greer NP via tiger text at 0610.
--- NOTE | 2024-05-20 06:33 | W.PN.UPDATE ---
Update Note
Progress Note Update
HH this am .11/24.9 (from 7.6)
Blood consent obtained from OR consent
Will send type crossmatch and order 1 unit PRBC
[2024-05-20] MEDS: POTASSIUM PHOSPHATE 259.0909 MEQ IV (09:45)
[2024-05-20] MEDS: VITAMIN C 500 MG PO (09:46)
[2024-05-20] MEDS: LIDOCAINE 4% PATCH 1 PATCH TOPICAL (09:46)
[2024-05-20] MEDS: NSS (PRESERVATIVE FREE) 10 ML IV (09:46)
[2024-05-20] MEDS: PROTONIX IV 40 MG IV (09:47)
[2024-05-20 09:50] VITALS: BP 110/92
[2024-05-20] MEDS: HYDROPHOR 1 APPLIC TOPICAL (09:52)
--- NOTE | 2024-05-20 10:22 | W.PN.GS2 ---
Addendum entered and electronically signed by Thaddeus Gurrola MD 05/20/24 11:27:
Patient seen and examined in follow-up today with nurse practitioner. Agree with documented progress note.
Patient's father at bedside today during our evaluation as well.
Miriam is anxious to have her NG tube removed
Denies nausea, denies vomiting, denies significant abdominal pain
Complains of her right eye and face being swollen which is new.
Requesting liquid/broth
AFVSS
NAD AAOx3; chronically ill-appearing
ABD: Soft, protuberant but not tensely distended. Minimal tenderness.
NG tube in right naris -clear scant fluid in canister and tubing line -nonbilious
Assessment/plan: 34-year-old female with numerous medical comorbidities admitted with chronic high-grade partial obstruction of uncertain etiology (ischemic, IBD, less likely adhesions as no prior surgery)
Given significant malnutrition, hypoalbuminemia continue with current medical optimization prior to future consideration/planning of need for surgical intervention timing to be determined -but likely will require weeks of nutritional support
TPN renewed
1 unit PRBC transfusion ordered overnight
Repeat H&H in p.m. with coagulation profile
NG tube removed
But holding diet on sips and chips for comfort (okay to have intermittent broth, water ice and clear liquid beverages)
Reviewed surgical impressions, treatment plan and goals of care with patient's father at bedside. Any of his questions were addressed.
Original Note:
Today's Communication / Plan
-
NGT out, sips of clears only
Assessment / Plan
-
Assessment: 34 yo female with h/o IVDA presenting with recurrent obstructive symptoms secondary to stricture of unclear etiology Crohns vs ischemic. ?history of Crohn's for which she has been on steroids without much benefit as well as recent
ischemic event in October during a drug OD which is when her GI symptoms began. Recently treated for pancolitis, C. difficile toxin negative antigen positive completed course of vancomycin.
POD#3 R hallux amputation revision with podiatry
Repeat CT on 05/17: Stable and significant dilation of the small bowel with air-fluid levels, and an apparent transition point within the RLQ in the mid to distal ileum. Small bowel loops with slight stranding and mild wall thickening. No evidence
of pneumatosis or free intraperitoneal air. Ascites and cirrhotic appearing liver.
Significantly high risk for operative complications at this time given her underlying cirrhosis, malnourishment, and immunosuppression.
Operative intervention is anticipated to involve exploratory laparotomy with small bowel resection with probable anastomosis vs ileostomy. Her postoperative course would be complicated by potential leakage of cirrhotic fluid, parastomal hernia
formation, potential high ileostomy output, and general care given her RUE amputation.
The preferred surgical option is for delayed operative intervention including bowel rest and TPN for period of weeks to optimize her operative risks. During this time she would be weaned off steroids.
Plan would be for operative intervention in 2 to 4 weeks.
AFVSS
Anemia of chronic disease: being transfused today
Minimal NGT outputs, removed at bedside
Plan:
--NGT removed, would not advance beyond sips/small amounts of clears at this time. Continued TPN to ensure full daily nutritional intake and plan not to attempt aggressive dietary advancement given chronic partial small bowel obstructive symptoms
that have reoccurred numerous times recently
--TPN renewed
--Phos replaced
--Trend nutritional markers, cirrhosis scores
--Wean steroids as per primary team, GI recommended slow taper prior to sign off
--Tentative plan for delayed operative intervention in 2 to 4 weeks following steroid wean and improvement in her nutrition/liver disease status
Plan of care discussed with father at bedside
Subjective Data
-
Date of Service: May 20, 2024
Patient seen and examined at bedside with Dr. Gurrola. Denies n/v. Denies abdominal pain. sleepy. Notes new right eye swelling.
Objective Data
-
Intake and Output
05/19/24 05/20/24 05/21/24
06:59 06:59 06:59
Intake Total 0 / 0
Output Total 150 / 150
Balance -150 / -150
Intake:
Oral fluids 0 / 0
Output:
Gastrointestinal tube output ( 150 / 150
Total)
[place] Sump 150 / 150
Other:
How many times incontinent 1
MODERATE amount urine
How many times incontinent 3 2
SATURATED amount urine
Vital Signs
Temp Pulse Resp BP Pulse Ox
97.7 F 90 22 110/92 96
05/20/24 09:50 05/20/24 09:50 05/20/24 09:50 05/20/24 09:50 05/20/24 09:50
Lab Results
05/20/24 05:19
Calcium 7.1 mg/dl (8.4-10.2) L 05/20/24 05:19
Phosphorus 2.0 mg/dl (2.5-4.5) L 05/20/24 05:19
Magnesium 2.2 mg/dl (1.6-2.3) 05/20/24 05:19
Total Bilirubin Cancelled 05/17/24 10:53
Direct Bilirubin 0.3 mg/dl (0.0-0.4) 05/11/24 04:38
AST Cancelled 05/17/24 10:53
ALT Cancelled 05/17/24 10:53
Alkaline Phosphatase Cancelled 05/17/24 10:53
Total Protein Cancelled 05/17/24 10:53
Albumin Cancelled 05/17/24 10:53
Physical Exam
-
NAD AAOx3
ENT: right eye edema
ABD: Softly protuberant but not tensely distended. NT. No rebound, no rigidity, no guarding
NG tube in place - scant clearish fluid in tubing line in canister
[2024-05-20] MEDS: CHLORASEPTIC/SORE THROAT SPRAY 1 SPRAY PO ×2 (11:08→17:06)
[2024-05-20 12:36] VITALS: BP 121/80
[2024-05-20 12:52] VITALS: BP 110/77
[2024-05-20 13:15] LABS: Glucose - Point of Care 128 mg/dl (70-99)
--- NOTE | 2024-05-20 13:20 | CM ---
Addendum entered by Kati Alvarado 05/20/24 13:41:
[facility] [phone]
Original Note:
Per chart patient is [facility] RLE and plan is for skilled placement, patient was admitted from [facility] but patient's father does not want patient to return there, patient has been to [facility] in past and telephonic case manager spoke with [facility] admissions
and they will not accept patient back for many different reasons and they assured telephonic case manager that all [place] facilities would also not accept patient, 24 referrals were sent and patient has been denied at all 24 facilities besides, patient's
medical needs patient is also on Suboxone/Subutex.
Plan; To follow with patient progress, skilled placement. Per Pat in admissions at [facility] they can accept patient's on Suboxone if they have an established clinical where they receive their Suboxone.
--- NOTE | 2024-05-20 14:27 | WOUNDNOTE ---
[facility] RN Note: t/c Spoke with RN Robbie who stated patient's sacrum is red and intact. Robbie plans to apply a Waffle air overlay mattress for patient.
--- NOTE | 2024-05-20 14:33 | WOUNDNOTE ---
[facility] RN Note: t/c Spoke with RN Robbie who stated patient's sacrum is red and intact. Robbie plans to apply a Waffle air overlay mattress if patient is not on an air bed (i.e. [facility] [place] air bed).
[2024-05-20 15:00] VITALS: BP 111/76
[2024-05-20 15:01] VITALS: BP 116/78
--- NOTE | 2024-05-20 15:48 | W.PN.HOSP.TC ---
Today's Communication/Plan
-
NG tube discontinued
Sips of clears
Continue TPN and follow electrolytes.
Continue antibiotics
Continue IV steroids.
Resume Neurontin
Increase IV Dilaudid for severe pain in the right lower extremity.
Patient has been off Suboxone and prefer not to continue that
Assessment / Plan
Assessment / Plan
Impression:
Patient is a 34y F with PMH significant for IVDA, untreated Hep C and cirrhosis with recent complicated hospital stay for Crohn's / SBO who presents to ED complaining of SOB, abdominal pain and distention.
Recurrent at least partial SBO suspected secondary to inflammatory process in patient with Crohn's disease
Crohn's disease.
Pancolitis
C. difficile antigen positive toxin negative recently treated with oral vancomycin.
Cirrhosis secondary to untreated hepatitis C.
Hepatic encephalopathy
Recurrent ascites.
Anasarca
Severe protein calorie malnutrition
Hypovolemic hyponatremia
Anemia of chronic disease
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
Polysubstance abuse, former IVDA on Suboxone.
Anxiety disorder
Multiple skin breakdowns
Plan:
Recurrent SBO likely inflammatory in nature
CT scan with oral contrast in the ED consistent with increased from prior dilated bowel loops.
Not clear if this is Crohn's/inflammatory bowel disease exacerbation with inflammatory stricture versus prior ischemic bowel insult.
Patient has not established diagnosis of IBD as per records
05/16 with worsening abdominal pain and distention.
Continue n.p.o.
Noted rising WBC while on prednisone
CT scan of the abdomen pelvis 05/17 consistent with small bowel obstruction? Inflammatory secondary to Crohn's disease
NG tube discontinued on 05/20. Sips of clears
TPN
Transitioned to IV corticosteroids as per GI and continue slow taper to avoid hypoadrenal state.
Has been on antibiotics covering UTI/Zosyn
Hold oral medications
Recently treated for pancolitis
Stool cultures negative to date.
C. difficile toxin negative antigen positive completed course of vancomycin while on systemic antibiotics for pancolitis.
Anemia of chronic disease
Slowly trending down hemoglobin to sevens with no evidence of acute blood loss
Recent iron studies consistent with increased ferritin, although sufficient iron stores
Monitor closely
Transfuse to keep above 8
Hypotension
Hypovolemic hyponatremia
Patient with anasarca and third spacing.
Hold Lasix and spironolactone
Follow BMP.
Urinary tract infection
Urine culture with E. coli sensitive to Zosyn
Monitor for retention
Cirrhosis secondary to untreated hepatitis C.
Ascites status post paracentesis 05/04 1 L with no evidence of SBP.
Monitor for reaccumulation.
Hepatic encephalopathy. Mental status stable. Ammonia level 17 on presentation
With improvement of bowel function, resume lactulose
Right first great toe osteomyelitis status post partial amputation.
Completed course of antibiotics
Wound is dehiscent but not infected
Status post right first great toe partial amputation and revision on 05/16.
Multiple skin breakdowns.
Wound care consult
Severe Protein Calorie Malnutrition
Hypomagnesemia
- Severe malnutrition secondary to IVDA, cirrhosis, etc.
- Nutrition evaluation / support.
- Was on TPN for a time during prior hospital stay.
- Monitor and replace electrolytes as needed.
Anxiety Disorder
Polysubstance Use Disorder
- Patient denies any interim substance abuse / use since last hospitalization. She has been in SNF since that time.
- Has been on buprenorphine. Will attempt to wean off.
-Reintroduce Remeron, Neurontin when able to take p.o.
- Resume gabapentin / mirtazapine when able to take POs.
DVT Prophylaxis: Lovenox
Code Status: Full
Anticipated Discharge: > 48 hours
Subjective/Interval History
-
Date of Service: May 20, 2024
Objective Data
-
Labs:
Laboratory Results
05/20/24 05/20/24 05/20/24
05:19 05:50 16:00
WBC 12.4 H
Hgb 6.6 L* Pending
Hct 19.9 L* Pending
Plt Count 196
PT Pending
INR Pending
APTT Pending
Sodium 134 L
Potassium 3.5
Chloride 105
Carbon Dioxide 29
BUN 10
Creatinine 0.3 L
Glucose 117 H
Calcium 7.1 L
05/20/24
17:00
WBC
Hgb Pending
Hct Pending
Plt Count
PT
INR
APTT
Sodium
Potassium
Chloride
Carbon Dioxide
BUN
Creatinine
Glucose
Calcium
Vital Signs:
Vital Signs
Temp Pulse Resp BP Pulse Ox
97.8 F 86 19 116/78 96
05/20/24 15:01 05/20/24 15:01 05/20/24 15:01 05/20/24 15:01 05/20/24 09:50
I&O
05/19/24 05/20/24 05/21/24
06:59 06:59 06:59
Intake Total 0 / 0 250 / 250
Output Total 150 / 150
Balance -150 / -150 250 / 250
Physical Exam
-
General: No Apparent Distress
HEENT: Normocephalic, Atraumatic and Moist Mucous Membranes
Respiratory: Clear to Auscultation
Cardiac: Regular Rhythm and S1/S2; Negative Murmur, Rub or Gallop
GI: Other (Distended with diffuse tenderness. NG tube in); Negative Organomegaly
Rectal: Deferred by Provider
Musculoskeletal: No Clubbing, No Cyanosis, No Edema and Other (Right arm amputation)
Skin: Negative Rash
Neuro: Awake, Alert, Oriented, AO x 3 and Nonfocal/Grossly Intact
[2024-05-20] MEDS: ZOFRAN 4 MG IV (16:39)
[2024-05-20] MEDS: NEURONTIN 100 MG PO (16:56)
[2024-05-20] MEDS: LOVENOX 40 MG SC (16:56)
[2024-05-20 17:04] LABS: Glucose - Point of Care 86 mg/dl (70-99)
[2024-05-20 18:13] LABS: Hematocrit 26.7 % (37.0-47.0)
[2024-05-20 18:18] LABS: INR 0.95
[2024-05-20 18:19] LABS: APTT 29.8 Sec (23.4-35.0)
[2024-05-20] MEDS: Parenteral Nutrition, Central 1360 IV (21:04)
[2024-05-20 21:56] LABS: Glucose - Point of Care 150 mg/dl (70-99)
[2024-05-20 23:00] VITALS: BP 100/75
[2024-05-21] MEDS: NEURONTIN 100 MG PO ×2 (01:03→08:54)
[2024-05-21] MEDS: ZOSYN 100 IV ×2 (01:09→08:54)
[2024-05-21 01:11] LABS: Transferrin 53 mg/dL (200-360)
[2024-05-21] MEDS: DILAUDID 2 MG IV ×6 (02:56→21:18)
[2024-05-21] MEDS: SOLU-MEDROL PF 15 MG IV ×2 (03:10→15:08)
[2024-05-21 06:08] VITALS: BMI 22.2
[2024-05-21 06:16] LABS: Blood Urea Nitrogen 12 mg/dl (7-17); Calcium 7.1 mg/dl (8.4-10.2); Carbon Dioxide 29 mmol/L (22-30); Chloride 105 mmol/L (98-107); Estimated Creatinine Clearance 119 ml/min; Glucose 117 mg/dl (70-99); Magnesium 2.2 mg/dl (1.6-2.3); Phosphorus 2.9 mg/dl (2.5-4.5); Potassium 4.4 mmol/L (3.5-5.1); Sodium 135 mmol/L (135-145); eGFR > 60.00
[2024-05-21 07:00] LABS: Glucose - Point of Care 137 mg/dl (70-99)
[2024-05-21 07:03] LABS: Hematocrit 24.6 % (37.0-47.0); Hemoglobin 7.8 g/dL (12.0-16.0); Mean Corp Hgb Conc. 31.7 g/dL (33.0-37.0); Mean Corpuscular Hgb 28.6 pg (27.0-31.0); Mean Corpuscular Volume 90.1 fL (81.0-99.0); Mean Platelet Volume 10.7 fL (7.4-10.4); Platelet Count 204 10^3/uL (130-400); Red Blood Cell Count 2.73 10^6/uL (4.20-5.40); Red Cell Dist. Width 22.3 % (11.5-14.5); White Blood Cell Count 14.1 10^3/uL (4.8-10.8)
[2024-05-21] MEDS: NSS (PRESERVATIVE FREE) 10 ML IV (08:54)
[2024-05-21] MEDS: LIDOCAINE 4% PATCH TOPICAL (08:54)
[2024-05-21] MEDS: PROTONIX IV 40 MG IV (08:54)
[2024-05-21 09:02] VITALS: BP 121/83
[2024-05-21] MEDS: HYDROPHOR 1 APPLIC TOPICAL (09:14)
[2024-05-21 12:01] LABS: Glucose - Point of Care 125 mg/dl (70-99)
--- NOTE | 2024-05-21 12:36 | W.PN.GS2 ---
Addendum entered and electronically signed by Sonny Griffiths MD 05/22/24 00:48:
I saw and examined the patient the morning of 05/21/24.
The MECHANICAL PRODUCT DESIGN ENGINEER's note was reviewed and I agree with the note.
Original Note:
Today's Communication / Plan
-
TPN and liquids only
Assessment / Plan
-
Assessment: 34 yo female with h/o IVDA presenting with recurrent obstructive symptoms secondary to stricture of unclear etiology Crohns vs ischemic. ?history of Crohn's for which she has been on steroids without much benefit as well as recent
ischemic event in October during a drug OD which is when her GI symptoms began. Recently treated for pancolitis, C. difficile toxin negative antigen positive completed course of vancomycin.
s/p R hallux amputation revision with podiatry
Repeat CT on 05/17: Stable and significant dilation of the small bowel with air-fluid levels, and an apparent transition point within the RLQ in the mid to distal ileum. Small bowel loops with slight stranding and mild wall thickening. No evidence
of pneumatosis or free intraperitoneal air. Ascites and cirrhotic appearing liver.
Significantly high risk for operative complications at this time given her underlying cirrhosis, malnourishment, and immunosuppression.
Operative intervention is anticipated to involve exploratory laparotomy with small bowel resection with probable anastomosis vs ileostomy. Her postoperative course would be complicated by potential leakage of cirrhotic fluid, parastomal hernia
formation, potential high ileostomy output, and general care given her RUE amputation.
The preferred surgical option is for delayed operative intervention including bowel rest and TPN for period of weeks to optimize her operative risks. During this time she would be weaned off steroids.
Plan would be for operative intervention in 2 to 4 weeks.
AFVSS
Anemia of chronic disease: being transfused today
Tolerating low intakes of clears
Plan:
--Continued TPN to ensure full daily nutritional intake and plan not to attempt aggressive dietary advancement given chronic partial small bowel obstructive symptoms that have reoccurred numerous times recently
--Would not advance beyond clears at this time, patient very adamant that she have at least one full liquid tray. Will order one for lunch but then change back to clears.
--TPN renewed
--Trend nutritional markers, cirrhosis scores
--Wean steroids as per primary team, GI recommended slow taper prior to sign off
--Tentative plan for delayed operative intervention in 2 to 4 weeks following steroid wean and improvement in her nutrition/liver disease status
Subjective Data
-
Date of Service: May 21, 2024
Patient seen and examined at bedside with Dr. Griffiths. Tearful, stating she is hungry and wants to eat. Denies n/v/abd pain. Feels she is not being heard out and that we don't understand what shes going through.
Objective Data
-
Intake and Output
05/20/24 05/21/24 05/22/24
06:59 06:59 06:59
Intake Total 0 / 0 1384 / 1384
Output Total 150 / 150
Balance -150 / -150 1384 / 1384
Intake:
Oral fluids 0 / 0 250 / 250
IV piggybacks 200 / 200
TPN/PPN 684 / 684
Blood Product Amount Infused ( 250 / 250
mL)
Packed Rbc Leukoreduced Unit 250 / 250
[id number]
Output:
Gastrointestinal tube output ( 150 / 150
Total)
[place] Sump 150 / 150
Other:
How many times incontinent 1
MODERATE amount urine
How many times incontinent 2 3
SATURATED amount urine
Vital Signs
Temp Pulse Resp BP Pulse Ox
98.3 F 72 16 121/83 98
05/21/24 09:02 05/21/24 09:02 05/21/24 09:02 05/21/24 09:02 05/21/24 09:02
Lab Results
05/21/24 05:23
05/21/24 05:23
Calcium 7.1 mg/dl (8.4-10.2) L 05/21/24 05:23
Phosphorus 2.9 mg/dl (2.5-4.5) 05/21/24 05:23
Magnesium 2.2 mg/dl (1.6-2.3) 05/21/24 05:23
Total Bilirubin Cancelled 05/17/24 10:53
Direct Bilirubin 0.3 mg/dl (0.0-0.4) 05/11/24 04:38
AST Cancelled 05/17/24 10:53
ALT Cancelled 05/17/24 10:53
Alkaline Phosphatase Cancelled 05/17/24 10:53
Total Protein Cancelled 05/17/24 10:53
Albumin Cancelled 05/17/24 10:53
Physical Exam
-
NAD AAOx3
ABD: Softly protuberant but not tensely distended. NT. Tympany present. No rebound, no rigidity, no guarding
Poor insight into situation, tearful
--- NOTE | 2024-05-21 13:01 | W.PN.HOSP.TC ---
Today's Communication/Plan
-
Antibiotics
Liquid diet as per surgery
Continue TPN and monitor electrolytes
Reintroduce Suboxone
Increase Neurontin to 300 mg every 8 hours
Reintroduce Suboxone
Attempt to wean off IV hydromorphone
Continue IV corticosteroids with slow taper.
Assessment / Plan
Assessment / Plan
Impression:
Patient is a 34y F with PMH significant for IVDA, untreated Hep C and cirrhosis with recent complicated hospital stay for Crohn's / SBO who presents to ED complaining of SOB, abdominal pain and distention.
Recurrent at least partial SBO suspected secondary to inflammatory process in patient with Crohn's disease
Crohn's disease.
Pancolitis
C. difficile antigen positive toxin negative recently treated with oral vancomycin.
Cirrhosis secondary to untreated hepatitis C.
Hepatic encephalopathy
Recurrent ascites.
Anasarca
Severe protein calorie malnutrition
Hypovolemic hyponatremia
Anemia of chronic disease
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
Polysubstance abuse, former IVDA on Suboxone.
Anxiety disorder
Multiple skin breakdowns
Plan:
Recurrent SBO likely inflammatory in nature
CT scan with oral contrast in the ED consistent with increased from prior dilated bowel loops.
Not clear if this is Crohn's/inflammatory bowel disease exacerbation with inflammatory stricture versus prior ischemic bowel insult.
Patient has not established diagnosis of IBD as per records
05/16 with worsening abdominal pain and distention.
Continue n.p.o.
Noted rising WBC while on prednisone
CT scan of the abdomen pelvis 05/17 consistent with small bowel obstruction? Inflammatory secondary to Crohn's disease
NG tube discontinued on 05/20.
Clears
TPN
Transitioned to IV corticosteroids as per GI and continue slow taper to avoid hypoadrenal state.
Has been on antibiotics covering UTI/Zosyn
Hold oral medications
Recently treated for pancolitis
Stool cultures negative to date.
C. difficile toxin negative antigen positive completed course of vancomycin while on systemic antibiotics for pancolitis.
Anemia of chronic disease
Slowly trending down hemoglobin to sevens with no evidence of acute blood loss
Recent iron studies consistent with increased ferritin, although sufficient iron stores
Monitor closely
Transfuse to keep above 8
Hypotension
Hypovolemic hyponatremia
Patient with anasarca and third spacing.
Hold Lasix and spironolactone
Follow BMP.
Urinary tract infection
Urine culture with E. coli sensitive to Zosyn
Completed course of antibiotics from 05/15 - 05/21
Cirrhosis secondary to untreated hepatitis C.
Ascites status post paracentesis 05/04 1 L with no evidence of SBP.
Monitor for reaccumulation.
Hepatic encephalopathy. Mental status stable. Ammonia level 17 on presentation
With improvement of bowel function, resume lactulose
Right first great toe osteomyelitis status post partial amputation.
Completed course of antibiotics
Wound is dehiscent but not infected
Status post right first great toe partial amputation and revision on 05/16.
Multiple skin breakdowns.
Wound care consult
Severe Protein Calorie Malnutrition
Hypomagnesemia
- Severe malnutrition secondary to IVDA, cirrhosis, etc.
- Nutrition evaluation / support.
- Was on TPN for a time during prior hospital stay.
- Monitor and replace electrolytes as needed.
Anxiety Disorder
Polysubstance Use Disorder
Chronic pain
Reintroduce Suboxone per
Attempt to wean off hydromorphone.
Increase Neurontin to 300 mg every 8 hours
DVT Prophylaxis: Lovenox
Code Status: Full
Anticipated Discharge: > 48 hours
Subjective/Interval History
-
Date of Service: May 21, 2024
Objective Data
-
Labs:
Laboratory Results
05/21/24
05:23
WBC 14.1 H
Hgb 7.8 L
Hct 24.6 L
Plt Count 204
Sodium 135
Potassium 4.4 D
Chloride 105
Carbon Dioxide 29
BUN 12
Creatinine 0.3 L
Glucose 117 H
Calcium 7.1 L
Vital Signs:
Vital Signs
Temp Pulse Resp BP Pulse Ox
98.3 F 72 16 121/83 98
05/21/24 09:02 05/21/24 09:02 05/21/24 09:02 05/21/24 09:02 05/21/24 09:02
I&O
05/20/24 05/21/24 05/22/24
06:59 06:59 06:59
Intake Total 0 / 0 1384 / 1384
Output Total 150 / 150
Balance -150 / -150 1384 / 1384
Physical Exam
-
General: No Apparent Distress
HEENT: Normocephalic, Atraumatic and Moist Mucous Membranes
Respiratory: Clear to Auscultation
Cardiac: Regular Rhythm and S1/S2; Negative Murmur, Rub or Gallop
GI: Negative Organomegaly
Rectal: Deferred by Provider
Musculoskeletal: No Clubbing, No Cyanosis, No Edema and Other (Right arm amputation)
Skin: Negative Rash
Neuro: Awake, Alert, Oriented, AO x 3 and Nonfocal/Grossly Intact
[2024-05-21 13:18] LABS: Ammonia 11 umol/L (9-30)
[2024-05-21] MEDS: NEURONTIN 300 MG PO ×2 (15:08→23:58)
[2024-05-21] MEDS: SUBUTEX 2 MG SL (15:09)
[2024-05-21 16:59] VITALS: BP 104/69
[2024-05-21] MEDS: LOVENOX 40 MG SC (16:59)
[2024-05-21 18:24] LABS: Glucose - Point of Care 191 mg/dl (70-99)
[2024-05-21] MEDS: REMERON 15 MG PO (21:13)
[2024-05-21] MEDS: Parenteral Nutrition, Central 1370 IV (21:17)
[2024-05-21 23:42] VITALS: BP 112/72
[2024-05-22] MEDS: BENADRYL 25 MG PO
[2024-05-22 00:08] LABS: Glucose - Point of Care 103 mg/dl (70-99)
[2024-05-22] MEDS: DILAUDID 2 MG IV ×6 (01:18→23:28)
[2024-05-22] MEDS: SOLU-MEDROL PF 15 MG IV ×2 (03:16→15:35)
[2024-05-22 05:44] LABS: Glucose - Point of Care 113 mg/dl (70-99)
[2024-05-22 05:45] VITALS: BMI 22.1
[2024-05-22 06:06] LABS: Magnesium 2.2 mg/dl (1.6-2.3)
[2024-05-22 06:09] LABS: % Basophils 0.3 % (0-2); % Immature Granulocytes 3.7 % (0-0.5); Absolute Immature Granulocytes 0.6 10^3/uL (0-0.05); Absolute Lymphocytes 2.2 10^3/uL (1.2-3.4); Absolute Monocytes 0.8 10^3/uL (0.1-0.6); Absolute Neutrophils 12.3 10^3/uL (1.4-6.5); Hematocrit 26.3 % (37.0-47.0); Hemoglobin 8.5 g/dL (12.0-16.0); Mean Corp Hgb Conc. 32.3 g/dL (33.0-37.0); Mean Corpuscular Hgb 29.1 pg (27.0-31.0); Mean Corpuscular Volume 90.1 fL (81.0-99.0); Mean Platelet Volume 10.3 fL (7.4-10.4); Nucleated Red Blood Cells % 3.1 %; Platelet Count 219 10^3/uL (130-400); Red Blood Cell Count 2.92 10^6/uL (4.20-5.40); Red Cell Dist. Width 23.7 % (11.5-14.5); White Blood Cell Count 15.9 10^3/uL (4.8-10.8)
[2024-05-22 07:50] VITALS: BP 114/77
[2024-05-22 08:30] LABS: Blood Urea Nitrogen 7 mg/dl (7-17); Calcium 8.9 mg/dl (8.4-10.2); Carbon Dioxide 25 mmol/L (22-30); Chloride 102 mmol/L (98-107); Estimated Creatinine Clearance 102 ml/min; Glucose 87 mg/dl (70-99); Sodium 136 mmol/L (135-145); eGFR > 60.00
[2024-05-22] MEDS: NEURONTIN 300 MG PO ×3 (08:48→23:28)
[2024-05-22] MEDS: SUBUTEX 2 MG SL (08:48)
[2024-05-22] MEDS: PROTONIX IV 40 MG IV (08:49)
[2024-05-22] MEDS: NSS (PRESERVATIVE FREE) 10 ML IV (08:49)
[2024-05-22] MEDS: HYDROPHOR 1 APPLIC TOPICAL (08:51)
[2024-05-22] MEDS: LIDOCAINE 4% PATCH TOPICAL (08:52)
[2024-05-22 11:40] LABS: Glucose - Point of Care 144 mg/dl (70-99)
[2024-05-22] MEDS: BENADRYL 25 MG IV (12:55)
--- NOTE | 2024-05-22 14:02 | W.PN.HOSP.TC ---
Today's Communication/Plan
-
Full liquid diet
TPN.
Minimize narcotics.
Continue Neurontin
Assessment / Plan
Assessment / Plan
Impression:
Patient is a 34y F with PMH significant for IVDA, untreated Hep C and cirrhosis with recent complicated hospital stay for Crohn's / SBO who presents to ED complaining of SOB, abdominal pain and distention.
Recurrent at least partial SBO suspected secondary to inflammatory process in patient with Crohn's disease
Crohn's disease.
Pancolitis
C. difficile antigen positive toxin negative recently treated with oral vancomycin.
Cirrhosis secondary to untreated hepatitis C.
Hepatic encephalopathy
Recurrent ascites.
Anasarca
Severe protein calorie malnutrition
Hypovolemic hyponatremia
Anemia of chronic disease
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
Polysubstance abuse, former IVDA on Suboxone.
Anxiety disorder
Multiple skin breakdowns
Plan:
Recurrent SBO likely inflammatory in nature
CT scan with oral contrast in the ED consistent with increased from prior dilated bowel loops.
Not clear if this is Crohn's/inflammatory bowel disease exacerbation with inflammatory stricture versus prior ischemic bowel insult.
Patient has not established diagnosis of IBD as per records
05/16 with worsening abdominal pain and distention.
Continue n.p.o.
Noted rising WBC while on prednisone
CT scan of the abdomen pelvis 05/17 consistent with small bowel obstruction? Inflammatory secondary to Crohn's disease
NG tube discontinued on 05/20.
Full liquid diet
TPN
Transitioned to IV corticosteroids as per GI and continue slow taper to avoid hypoadrenal state.
Has been on antibiotics covering UTI/Zosyn
Hold oral medications
Recently treated for pancolitis
Stool cultures negative to date.
C. difficile toxin negative antigen positive completed course of vancomycin while on systemic antibiotics for pancolitis.
Anemia of chronic disease
Slowly trending down hemoglobin to sevens with no evidence of acute blood loss
Recent iron studies consistent with increased ferritin, although sufficient iron stores
Monitor closely
Transfuse to keep above 8
Hypotension
Hypovolemic hyponatremia
Patient with anasarca and third spacing.
Hold Lasix and spironolactone
Follow BMP.
Urinary tract infection
Urine culture with E. coli sensitive to Zosyn
Completed course of antibiotics from 05/15 - 05/21
Cirrhosis secondary to untreated hepatitis C.
Ascites status post paracentesis 05/04 1 L with no evidence of SBP.
Monitor for reaccumulation.
Hepatic encephalopathy. Mental status stable. Ammonia level 17 on presentation
With improvement of bowel function, resume lactulose
Right first great toe osteomyelitis status post partial amputation.
Completed course of antibiotics
Wound is dehiscent but not infected
Status post right first great toe partial amputation and revision on 05/16.
Multiple skin breakdowns.
Wound care consult
Severe Protein Calorie Malnutrition
Hypomagnesemia
- Severe malnutrition secondary to IVDA, cirrhosis, etc.
- Nutrition evaluation / support.
- Was on TPN for a time during prior hospital stay.
- Monitor and replace electrolytes as needed.
Anxiety Disorder
Polysubstance Use Disorder
Chronic pain
Patient declined Suboxone
Attempt to wean off hydromorphone.
Increase Neurontin to 300 mg every 8 hours
DVT Prophylaxis: Lovenox
Code Status: Full
Anticipated Discharge: > 48 hours
Subjective/Interval History
-
Date of Service: May 22, 2024
Objective Data
-
Labs:
Laboratory Results
05/22/24
05:24
WBC 15.9 H
Hgb 8.5 L
Hct 26.3 L
Plt Count 219
Sodium 136
Potassium 5.0
Chloride 102
Carbon Dioxide 25
BUN 7
Creatinine 0.7
Glucose 87
Calcium 8.9 D
Vital Signs:
Vital Signs
Temp Pulse Resp BP Pulse Ox
97.9 F 75 18 114/77 99
05/22/24 07:50 05/22/24 07:50 05/22/24 07:50 05/22/24 07:50 05/22/24 08:50
I&O
05/21/24 05/22/24 05/23/24
06:59 06:59 06:59
Intake Total 1384 / 1384 1368 / 1368
Balance 1384 / 1384 1368 / 1368
Physical Exam
-
General: No Apparent Distress
HEENT: Normocephalic, Atraumatic and Moist Mucous Membranes
Respiratory: Clear to Auscultation
Cardiac: Regular Rhythm and S1/S2; Negative Murmur, Rub or Gallop
GI: Negative Organomegaly
Rectal: Deferred by Provider
Musculoskeletal: No Clubbing, No Cyanosis, No Edema and Other (Right arm amputation)
Skin: Negative Rash
Neuro: Awake, Alert, Oriented, AO x 3 and Nonfocal/Grossly Intact
[2024-05-22 15:34] VITALS: BP 111/71
--- NOTE | 2024-05-22 15:52 | W.PN.UPDATE ---
Update Note
Progress Note Update
Chart/labs reviewed:
TPN renewed with adjustments made to potassium dosing
On FLD as per hospitalist, would not advance to solids. Recommend downgrade to clear liquids if abdominal pain worsens. Make NPO if develops nausea
Plan currently remains for delayed operative intervention for stricture management in 2 to 4 weeks following steroid wean and improvement in her nutrition/liver disease status
[2024-05-22] MEDS: LOVENOX 40 MG SC (17:07)
[2024-05-22 18:11] LABS: Glucose - Point of Care 121 mg/dl (70-99)
--- NOTE | 2024-05-22 18:46 | PTCARENOTE ---
Pt's abdomen noted to be much more distended than yesterday and this am. Pt c/o of more abd pain as shift has gone on. Diet will be decreased back to clear liquids as per surgery's note and pt made aware this will occur. Pt stated that she has 'been
pushing the fluids'.
[2024-05-22] MEDS: Parenteral Nutrition, Central 1360 IV (21:25)
[2024-05-22] MEDS: REMERON 15 MG PO (21:25)
[2024-05-22 23:30] VITALS: BP 112/73
[2024-05-23 00:12] LABS: Glucose - Point of Care 115 mg/dl (70-99)
[2024-05-23] MEDS: SOLU-MEDROL PF 15 MG IV (03:54)
[2024-05-23] MEDS: DILAUDID 2 MG IV ×5 (03:55→21:28)
[2024-05-23 06:00] VITALS: BMI 22.0
[2024-05-23 06:03] LABS: Glucose - Point of Care 82 mg/dl (70-99)
[2024-05-23 06:57] LABS: % Basophils 0.2 % (0-2); % Immature Granulocytes 3.3 % (0-0.5); % Lymphocytes 6.6 % (20.5-51.1); % Monocytes 6.7 % (1.7-9.3); % Neutrophils 83.2 % (42.2-75.2); Absolute Immature Granulocytes 0.6 10^3/uL (0-0.05); Absolute Lymphocytes 1.2 10^3/uL (1.2-3.4); Absolute Monocytes 1.2 10^3/uL (0.1-0.6); Absolute Neutrophils 14.9 10^3/uL (1.4-6.5); Hemoglobin 8.6 g/dL (12.0-16.0); Mean Corp Hgb Conc. 31.9 g/dL (33.0-37.0); Mean Corpuscular Hgb 29.7 pg (27.0-31.0); Mean Corpuscular Volume 93.1 fL (81.0-99.0); Mean Platelet Volume 10.1 fL (7.4-10.4); Nucleated Red Blood Cells % 2.5 %; Platelet Count 215 10^3/uL (130-400); Red Cell Dist. Width 24.6 % (11.5-14.5); White Blood Cell Count 17.9 10^3/uL (4.8-10.8)
[2024-05-23 07:08] LABS: ALT (SGPT) 65 U/L (0-35); AST (SGOT) 115 U/L (14-36); Alkaline Phosphatase 270 U/L (38-126); Blood Urea Nitrogen 13 mg/dl (7-17); Calcium 7.8 mg/dl (8.4-10.2); Carbon Dioxide 31 mmol/L (22-30); Chloride 105 mmol/L (98-107); Estimated Creatinine Clearance 119 ml/min; Glucose 89 mg/dl (70-99); Magnesium 1.9 mg/dl (1.6-2.3); Phosphorus 3.6 mg/dl (2.5-4.5); Potassium 4.9 mmol/L (3.5-5.1); Sodium 136 mmol/L (135-145); Total Bilirubin 0.2 mg/dl (0.2-1.3); Total Protein 5.1 g/dl (6.3-8.2); Triglycerides 118 mg/dl (10-149); eGFR > 60.00
[2024-05-23 08:00] VITALS: BP 144/104
[2024-05-23] MEDS: HYDROPHOR 1 APPLIC TOPICAL (09:06)
[2024-05-23] MEDS: NEURONTIN 300 MG PO (09:07)
[2024-05-23] MEDS: NSS (PRESERVATIVE FREE) 10 ML IV (09:07)
[2024-05-23] MEDS: LIDOCAINE 4% PATCH TOPICAL (09:07)
[2024-05-23] MEDS: PROTONIX IV 40 MG IV (09:08)
--- NOTE | 2024-05-23 10:14 | W.PN.UPDATE ---
Update Note
Progress Note Update
Chart/labs reviewed:
TPN renewed
Clear liquids as tolerated. Recommend no solid food until surgery can be preformed
Plan currently remains for delayed operative intervention for stricture management following steroid wean and improvement in her nutrition/liver disease status, anticipate this will take place tentatively in early June
[2024-05-23 12:21] LABS: Glucose - Point of Care 104 mg/dl (70-99)
--- NOTE | 2024-05-23 14:51 | W.PN.HOSP.TC ---
Today's Communication/Plan
-
TPN.
Follow leukocytosis.
Blood culture.
Systemic steroids taper.
Full liquid diet with limitations
Assessment / Plan
Assessment / Plan
Impression:
Patient is a 34y F with PMH significant for IVDA, untreated Hep C and cirrhosis with recent complicated hospital stay for Crohn's / SBO who presents to ED complaining of SOB, abdominal pain and distention.
Recurrent at least partial SBO suspected secondary to inflammatory process in patient with Crohn's disease
Crohn's disease.
Pancolitis
C. difficile antigen positive toxin negative recently treated with oral vancomycin.
Cirrhosis secondary to untreated hepatitis C.
Hepatic encephalopathy
Recurrent ascites.
Anasarca
Severe protein calorie malnutrition
Hypovolemic hyponatremia
Anemia of chronic disease
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
Polysubstance abuse, former IVDA on Suboxone.
Anxiety disorder
Multiple skin breakdowns
Plan:
Rising WBC.
Afebrile. No specific complaints to indicate source of leukocytosis
No specific complaints other than diffuse bodyaches.
Has left subclavian central line with TPN.
Recently off antibiotics/14 (completed course for possible intra-abdominal source and right foot wound.
Blood culture
Inspection of her right foot with no indication of infection.
If rising leukocytosis and no other source identified, may need exchange of line.
If diarrheal stool, check for C. difficile
Recurrent SBO likely inflammatory in nature
CT scan with oral contrast in the ED consistent with increased from prior dilated bowel loops.
Not clear if this is Crohn's/inflammatory bowel disease exacerbation with inflammatory stricture versus prior ischemic bowel insult.
Patient has not established diagnosis of IBD as per records
05/16 with worsening abdominal pain and distention.
Continue n.p.o.
Noted rising WBC while on prednisone
CT scan of the abdomen pelvis 05/17 consistent with small bowel obstruction? Inflammatory secondary to Crohn's disease
NG tube discontinued on 05/20.
Full liquid diet with limited volume at 1200 mL. Patient understands she could not exceed that amount.
TPN
Transitioned to IV corticosteroids as per GI and continue slow taper to avoid hypoadrenal state.
Has been on antibiotics covering UTI/Zosyn
Hold oral medications
Recently treated for pancolitis
Stool cultures negative to date.
C. difficile toxin negative antigen positive completed course of vancomycin while on systemic antibiotics for pancolitis.
Anemia of chronic disease
Slowly trending down hemoglobin to sevens with no evidence of acute blood loss
Recent iron studies consistent with increased ferritin, although sufficient iron stores
Monitor closely
Transfuse to keep above 8
Hypotension
Hypovolemic hyponatremia
Patient with anasarca and third spacing.
Hold Lasix and spironolactone
Follow BMP.
Urinary tract infection
Urine culture with E. coli sensitive to Zosyn
Completed course of antibiotics from 05/15 - 05/21
Cirrhosis secondary to untreated hepatitis C.
Ascites status post paracentesis 05/04 1 L with no evidence of SBP.
Monitor for reaccumulation.
Hepatic encephalopathy. Mental status stable. Ammonia level 17 on presentation
With improvement of bowel function, resume lactulose
Right first great toe osteomyelitis status post partial amputation.
Completed course of antibiotics
Wound is dehiscent but not infected
Status post right first great toe partial amputation and revision on 05/16.
Multiple skin breakdowns.
Wound care consult
Severe Protein Calorie Malnutrition
Hypomagnesemia
- Severe malnutrition secondary to IVDA, cirrhosis, etc.
- Nutrition evaluation / support.
- Was on TPN for a time during prior hospital stay.
- Monitor and replace electrolytes as needed.
Anxiety Disorder
Polysubstance Use Disorder
Chronic pain
Patient declined Suboxone
Attempt to wean off hydromorphone.
Increase Neurontin to 300 mg every 8 hours
DVT Prophylaxis: Lovenox
Code Status: Full
Anticipated Discharge: > 48 hours
Subjective/Interval History
-
Date of Service: May 23, 2024
Objective Data
-
Labs:
Laboratory Results
05/23/24
06:28
WBC 17.9 H
Hgb 8.6 L
Hct 27.0 L
Plt Count 215
Sodium 136
Potassium 4.9
Chloride 105
Carbon Dioxide 31 H
BUN 13
Creatinine 0.2 L
Glucose 89
Calcium 7.8 L
Total Bilirubin 0.2
AST 115 H
ALT 65 H
Alkaline Phosphatase 270 H
Vital Signs:
Vital Signs
Temp Pulse Resp BP Pulse Ox
97.7 F 112 16 144/104 100
05/23/24 08:00 05/23/24 08:00 05/23/24 08:00 05/23/24 08:00 05/23/24 08:45
I&O
05/22/24 05/23/24 05/24/24
06:59 06:59 06:59
Intake Total 1368 / 1368 2808 / 2808
Output Total 480 / 480
Balance 1368 / 1368 2328 / 2328
Physical Exam
-
General: No Apparent Distress
HEENT: Normocephalic, Atraumatic and Moist Mucous Membranes
Respiratory: Clear to Auscultation
Cardiac: Regular Rhythm and S1/S2; Negative Murmur, Rub or Gallop
GI: Negative Organomegaly
Rectal: Deferred by Provider
Musculoskeletal: No Clubbing, No Cyanosis, No Edema and Other (Right arm amputation)
Skin: Negative Rash
Neuro: Awake, Alert, Oriented, AO x 3 and Nonfocal/Grossly Intact
[2024-05-23] MEDS: SOLU-MEDROL PF 10 MG IV (15:32)
[2024-05-23] MEDS: NEURONTIN 400 MG PO ×2 (15:34→23:27)
[2024-05-23 16:44] VITALS: BP 129/88
[2024-05-23] MEDS: LOVENOX 40 MG SC (17:13)
[2024-05-23 18:09] LABS: Glucose - Point of Care 141 mg/dl (70-99)
[2024-05-23] MEDS: REMERON 15 MG PO (21:41)
[2024-05-23] MEDS: Parenteral Nutrition, Central 1360 IV (21:49)
[2024-05-23 23:30] VITALS: BP 130/96
[2024-05-24 00:55] LABS: Glucose - Point of Care 121 mg/dl (70-99)
[2024-05-24] MEDS: DILAUDID 2 MG IV ×6 (01:08→21:16)
[2024-05-24] MEDS: SOLU-MEDROL PF 10 MG IV ×2 (04:54→15:48)
[2024-05-24 05:43] LABS: % Basophils 0.1 % (0-2); % Eosinophils 0.1 % (0-6); % Immature Granulocytes 3.3 % (0-0.5); % Neutrophils 65.5 % (42.2-75.2); Absolute Immature Granulocytes 0.4 10^3/uL (0-0.05); Absolute Lymphocytes 2.8 10^3/uL (1.2-3.4); Absolute Monocytes 1.3 10^3/uL (0.1-0.6); Absolute Neutrophils 8.6 10^3/uL (1.4-6.5); Hematocrit 25.5 % (37.0-47.0); Hemoglobin 7.9 g/dL (12.0-16.0); Mean Corpuscular Hgb 28.8 pg (27.0-31.0); Mean Corpuscular Volume 93.1 fL (81.0-99.0); Mean Platelet Volume 10.3 fL (7.4-10.4); Nucleated Red Blood Cells % 1.5 %; Platelet Count 219 10^3/uL (130-400); Red Blood Cell Count 2.74 10^6/uL (4.20-5.40); Red Cell Dist. Width 24.1 % (11.5-14.5); White Blood Cell Count 13.1 10^3/uL (4.8-10.8)
[2024-05-24 05:58] LABS: Blood Urea Nitrogen 15 mg/dl (7-17); Calcium 7.6 mg/dl (8.4-10.2); Carbon Dioxide 30 mmol/L (22-30); Chloride 105 mmol/L (98-107); Estimated Creatinine Clearance 119 ml/min; Glucose 93 mg/dl (70-99); Phosphorus 3.7 mg/dl (2.5-4.5); Potassium 4.2 mmol/L (3.5-5.1); Sodium 136 mmol/L (135-145); eGFR > 60.00
[2024-05-24 06:00] VITALS: BMI 22.2
[2024-05-24 06:17] LABS: Glucose - Point of Care 116 mg/dl (70-99)
[2024-05-24 07:00] VITALS: BP 98/67
[2024-05-24] MEDS: PROTONIX IV 40 MG IV (08:35)
[2024-05-24] MEDS: LIDOCAINE 4% PATCH TOPICAL (08:35)
[2024-05-24] MEDS: NEURONTIN 400 MG PO ×2 (08:35→15:48)
[2024-05-24] MEDS: NSS (PRESERVATIVE FREE) 10 ML IV (08:36)
[2024-05-24] MEDS: HYDROPHOR 1 APPLIC TOPICAL (08:37)
--- NOTE | 2024-05-24 11:59 | CM ---
Chart reviewed and physical therapy are still recommending skilled placement for patient. Patient was admitted from [facility], however patient and father do not want to return to [facility]. Patient has been at other skilled facilities in past
however due to drug abuse at one facility they will not accept patent back and patient will not be accepted at any of their facilities in [place]. sales activity manager reviewed patient's chart and 51 referrals sent to skilled facilities, and patient
has not been accepted at any of these facilities, patient is currently receiving Subutex which many physician do not have a license to prescribe. sales activity manager spoke with [facility] and will follow up with them closer to discharge to see if this
is an option for patient.
Plan; Skilled placement, [facility] facility referrals sent.
[2024-05-24 12:08] LABS: Glucose - Point of Care 120 mg/dl (70-99)
[2024-05-24 15:00] VITALS: BP 122/87
--- NOTE | 2024-05-24 15:50 | W.PN.SURGUPD ---
Surgical Update
Surgical Update
patient is s/p R hallux amputation revision 05/16. Right foot significantly improved
-Patient seen and evaluated at bedside. Dressings removed and surgical site examined, wound well healing
-Continue local wound care 3x weekly, see previous orders
-Continue PT/OT
-Recommend nursing dressing changes 3x weekly
-Will continue to follow
[2024-05-24] MEDS: LOVENOX 40 MG SC (17:15)
--- NOTE | 2024-05-24 17:26 | W.PN.SURGUPD ---
Surgical Update
Surgical Update
Tolerating fulls, would not advance beyond. Abdomen benign. AVSS with downtrending leukocytosis. TPN renewed. Awaiting steroid wean and improvement in malnutrition prior to operative intervention. No major changes from a surgical perspective.
--- NOTE | 2024-05-24 17:33 | W.PN.HOSP.TC ---
Today's Communication/Plan
-
Persistent abdominal pain.
WBC trending down
Downgrade to clears.
TPN.
Assessment / Plan
Assessment / Plan
Impression:
Patient is a 34y F with PMH significant for IVDA, untreated Hep C and cirrhosis with recent complicated hospital stay for Crohn's / SBO who presents to ED complaining of SOB, abdominal pain and distention.
Recurrent at least partial SBO suspected secondary to inflammatory process in patient with Crohn's disease
Crohn's disease.
Pancolitis
C. difficile antigen positive toxin negative recently treated with oral vancomycin.
Cirrhosis secondary to untreated hepatitis C.
Hepatic encephalopathy
Recurrent ascites.
Anasarca
Severe protein calorie malnutrition
Hypovolemic hyponatremia
Anemia of chronic disease
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
Polysubstance abuse, former IVDA on Suboxone.
Anxiety disorder
Multiple skin breakdowns
Plan:
Recurrent SBO likely inflammatory in nature
CT scan with oral contrast in the ED consistent with increased from prior dilated bowel loops.
Not clear if this is Crohn's/inflammatory bowel disease exacerbation with inflammatory stricture versus prior ischemic bowel insult.
Patient has not established diagnosis of IBD as per records
05/16 with worsening abdominal pain and distention.
Continue n.p.o.
Noted rising WBC while on prednisone
CT scan of the abdomen pelvis 05/17 consistent with small bowel obstruction? Inflammatory secondary to Crohn's disease
NG tube discontinued on 05/20.
Full liquid diet with limited volume at 1200 mL. Patient understands she could not exceed that amount.
TPN
Transitioned to IV corticosteroids as per GI and continue slow taper to avoid hypoadrenal state.
Has been on antibiotics covering UTI/Zosyn
Hold oral medications
Recently treated for pancolitis
Stool cultures negative to date.
C. difficile toxin negative antigen positive completed course of vancomycin while on systemic antibiotics for pancolitis.
Anemia of chronic disease
Slowly trending down hemoglobin to sevens with no evidence of acute blood loss
Recent iron studies consistent with increased ferritin, although sufficient iron stores
Monitor closely
Transfuse to keep above 8
Fluctuating WBC. Currently trending down while off antibiotics
Currently afebrile.
Monitor closely
Hypotension
Hypovolemic hyponatremia
Patient with anasarca and third spacing.
Hold Lasix and spironolactone
Follow BMP.
Urinary tract infection
Urine culture with E. coli sensitive to Zosyn
Completed course of antibiotics from 05/15 - 05/21
Cirrhosis secondary to untreated hepatitis C.
Ascites status post paracentesis 05/04 1 L with no evidence of SBP.
Monitor for reaccumulation.
Hepatic encephalopathy. Mental status stable. Ammonia level 17 on presentation
With improvement of bowel function, resume lactulose
Right first great toe osteomyelitis status post partial amputation.
Completed course of antibiotics
Wound is dehiscent but not infected
Status post right first great toe partial amputation and revision on 05/16.
Multiple skin breakdowns.
Wound care consult
Severe Protein Calorie Malnutrition
Hypomagnesemia
- Severe malnutrition secondary to IVDA, cirrhosis, etc.
- Nutrition evaluation / support.
- Was on TPN for a time during prior hospital stay.
- Monitor and replace electrolytes as needed.
Anxiety Disorder
Polysubstance Use Disorder
Chronic pain
Patient declined Suboxone
Attempt to wean off hydromorphone.
Increase Neurontin to 300 mg every 8 hours
DVT Prophylaxis: Lovenox
Code Status: Full
Anticipated Discharge: > 48 hours
Subjective/Interval History
-
Date of Service: May 24, 2024
Objective Data
-
Labs:
Laboratory Results
05/24/24
05:19
WBC 13.1 H
Hgb 7.9 L
Hct 25.5 L
Plt Count 219
Sodium 136
Potassium 4.2
Chloride 105
Carbon Dioxide 30
BUN 15
Creatinine 0.2 L
Glucose 93
Calcium 7.6 L
Vital Signs:
Vital Signs
Temp Pulse Resp BP Pulse Ox
96.7 F L 112 20 122/87 100
05/24/24 15:00 05/24/24 15:00 05/24/24 15:00 05/24/24 15:00 05/24/24 15:00
I&O
05/23/24 05/24/24 05/25/24
06:59 06:59 06:59
Intake Total 2808 / 2808 4468 / 4468
Output Total 480 / 480
Balance 2328 / 2328 4468 / 4468
[2024-05-24 18:03] LABS: Glucose - Point of Care 136 mg/dl (70-99)
[2024-05-24] MEDS: Parenteral Nutrition, Central 1360 IV (21:16)
[2024-05-24] MEDS: REMERON 15 MG PO (21:28)
[2024-05-24 23:55] VITALS: BP 119/83
[2024-05-25] MEDS: NEURONTIN 400 MG PO ×3 (00:05→15:58)
[2024-05-25 00:16] LABS: Glucose - Point of Care 115 mg/dl (70-99)
[2024-05-25] MEDS: DILAUDID 2 MG IV ×6 (01:17→22:08)
[2024-05-25] MEDS: SOLU-MEDROL PF 10 MG IV ×2 (03:51→16:17)
[2024-05-25 05:22] LABS: % Basophils 0.3 % (0-2); % Lymphocytes 30.2 % (20.5-51.1); % Monocytes 14.1 % (1.7-9.3); % Neutrophils 52.4 % (42.2-75.2); Absolute Immature Granulocytes 0.4 10^3/uL (0-0.05); Absolute Lymphocytes 3.6 10^3/uL (1.2-3.4); Absolute Monocytes 1.7 10^3/uL (0.1-0.6); Absolute Neutrophils 6.2 10^3/uL (1.4-6.5); Hematocrit 27.9 % (37.0-47.0); Hemoglobin 8.5 g/dL (12.0-16.0); Mean Corp Hgb Conc. 30.5 g/dL (33.0-37.0); Mean Corpuscular Hgb 29.1 pg (27.0-31.0); Mean Corpuscular Volume 95.5 fL (81.0-99.0); Mean Platelet Volume 10.7 fL (7.4-10.4); Nucleated Red Blood Cells % 1.5 %; Platelet Count 239 10^3/uL (130-400); Red Blood Cell Count 2.92 10^6/uL (4.20-5.40); Red Cell Dist. Width 25.5 % (11.5-14.5); White Blood Cell Count 11.8 10^3/uL (4.8-10.8)
[2024-05-25 05:45] LABS: Blood Urea Nitrogen 19 mg/dl (7-17); Calcium 8.1 mg/dl (8.4-10.2); Carbon Dioxide 30 mmol/L (22-30); Chloride 104 mmol/L (98-107); Estimated Creatinine Clearance 119 ml/min; Glucose 103 mg/dl (70-99); Potassium 4.3 mmol/L (3.5-5.1); Sodium 133 mmol/L (135-145); eGFR > 60.00
[2024-05-25 06:00] VITALS: BMI 22.2
[2024-05-25 06:26] LABS: Glucose - Point of Care 120 mg/dl (70-99)
[2024-05-25 07:00] VITALS: BP 116/72
[2024-05-25] MEDS: PROTONIX IV 40 MG IV (09:12)
[2024-05-25] MEDS: LIDOCAINE 4% PATCH TOPICAL (09:12)
[2024-05-25] MEDS: NSS (PRESERVATIVE FREE) 10 ML IV (09:13)
--- NOTE | 2024-05-25 11:33 | W.PN.UPDATE ---
Update Note
Progress Note Update
Pt seen and evaluated at bedside. Some worsening distention. Pain is controlled. Abd exam distended, mildly ttp. Plan remains for nutritional optimization ad steroid wean prior to possible OR. Prealbum ordered today. TPN reordered. Clears for
comfort OK.
[2024-05-25 11:58] LABS: Glucose - Point of Care 98 mg/dl (70-99)
--- NOTE | 2024-05-25 11:59 | WOUNDNOTE ---
L FOOT (DORSAL MEDIAL)
--- NOTE | 2024-05-25 11:59 | WOUNDNOTE ---
L ANKLE/FOOT (MEDIAL)
--- NOTE | 2024-05-25 12:05 | WOUNDNOTE ---
[facility] RN note: Patient with anasarca. She is not moving herself much in bed. She refused positioning onto her semi side lying position after explaining importance of turning. She has a small stage 2 L sacral/buttocks pressure injury. She's had a
history of stage 2 sacral/buttocks in this area before. Skin in heels blanchable mild red and intact. R ischial stage 2 ulcer about the same, small and pink. Patient incontinent of large amount of urine. Patient turned for gurpreet care and wound care.
Silicone border foam changed on sacrum and R ischium. Protective foam applied to heels. Heels off bed with bariatric air chair cushion. Patient is on a [employer] air bed. She is on TPN. She has weeping edema in trunk area. L medial proximal foot
with absorbing serous/blood blister. L dorsal foot wound 80% pink with 20% dry yellow tissue. Dressing changed on L foot. R foot dressing D+I. Dr. Casillas following. Patient at risk for worsening or additional skin breakdown d/t overall medical
condition and frequent refusal of off loading. Care plan to be updated. Will follow as needed.
--- NOTE | 2024-05-25 12:07 | WOUNDNOTE ---
[facility] RN note: Patient with anasarca. She is not moving herself much in bed. She refused positioning onto her semi side lying position after explaining importance of turning. She has a small stage 2 L sacral/buttocks pressure injury. She's had a
history of stage 2 sacral/buttocks in this area before. Skin in heels blanchable mild red and intact. R ischial stage 2 ulcer about the same, small and pink. Patient incontinent of large amount of urine. Patient turned for gurpreet care and wound care.
Silicone border foam changed on sacrum and R ischium. Protective foam applied to heels. Heels off bed with bariatric air chair cushion. Patient is on a [employer] air bed. She is on TPN. She has weeping edema in trunk area. L medial proximal foot
with absorbing serous/blood blister. L dorsal foot wound 80% pink with 20% dry yellow tissue. Dressing changed on L foot. R foot dressing D+I. Dr. Casillas following. Care plan to be updated. Will follow as needed.
--- NOTE | 2024-05-25 12:29 | CM ---
Chart reviewed and physical therapy are recommending skilled placement, 51 referrals sent, will need to follow up closer to discharge.
Plan; Skilled placement.
[2024-05-25 12:54] LABS: Prealbumin (Transthyretin) 11.7 mg/dl (17.6-36.0)
[2024-05-25 15:00] VITALS: BP 125/83
[2024-05-25] MEDS: HYDROPHOR TOPICAL (15:57)
--- NOTE | 2024-05-25 16:03 | W.PN.HOSP.TC ---
Today's Communication/Plan
-
Persistent abdominal pain and distention.
Stable WBC
Sips of clears.
TPN.
Steroid taper
Assessment / Plan
Assessment / Plan
Impression:
Patient is a 34y F with PMH significant for IVDA, untreated Hep C and cirrhosis with recent complicated hospital stay for Crohn's / SBO who presents to ED complaining of SOB, abdominal pain and distention.
Recurrent at least partial SBO suspected secondary to inflammatory process in patient with Crohn's disease
Crohn's disease.
Pancolitis
C. difficile antigen positive toxin negative recently treated with oral vancomycin.
Cirrhosis secondary to untreated hepatitis C.
Hepatic encephalopathy
Recurrent ascites.
Anasarca
Severe protein calorie malnutrition
Hypovolemic hyponatremia
Anemia of chronic disease
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
Polysubstance abuse, former IVDA on Suboxone.
Anxiety disorder
Multiple skin breakdowns
Plan:
Recurrent SBO likely inflammatory in nature
CT scan with oral contrast in the ED consistent with increased from prior dilated bowel loops.
Not clear if this is Crohn's/inflammatory bowel disease exacerbation with inflammatory stricture versus prior ischemic bowel insult.
Patient has not established diagnosis of IBD as per records
05/16 with worsening abdominal pain and distention.
Continue n.p.o.
Noted rising WBC while on prednisone
CT scan of the abdomen pelvis 05/17 consistent with small bowel obstruction? Inflammatory secondary to Crohn's disease
NG tube discontinued on 05/20.
Full liquid diet with limited volume at 1200 mL. Patient understands she could not exceed that amount.
TPN
Transitioned to IV corticosteroids as per GI and continue slow taper to avoid hypoadrenal state.
Has been on antibiotics covering UTI/Zosyn
Hold oral medications
Recently treated for pancolitis
Stool cultures negative to date.
C. difficile toxin negative antigen positive completed course of vancomycin while on systemic antibiotics for pancolitis.
Anemia of chronic disease
Slowly trending down hemoglobin to sevens with no evidence of acute blood loss
Recent iron studies consistent with increased ferritin, although sufficient iron stores
Monitor closely
Transfuse to keep above 8
Fluctuating WBC. Currently trending down while off antibiotics
Currently afebrile.
Monitor closely
Hypotension
Hypovolemic hyponatremia
Patient with anasarca and third spacing.
Hold Lasix and spironolactone
Follow BMP.
Urinary tract infection
Urine culture with E. coli sensitive to Zosyn
Completed course of antibiotics from 05/15 - 05/21
Cirrhosis secondary to untreated hepatitis C.
Ascites status post paracentesis 05/04 1 L with no evidence of SBP.
Monitor for reaccumulation.
Hepatic encephalopathy. Mental status stable. Ammonia level 17 on presentation
With improvement of bowel function, resume lactulose
Right first great toe osteomyelitis status post partial amputation.
Completed course of antibiotics
Wound is dehiscent but not infected
Status post right first great toe partial amputation and revision on 05/16.
Multiple skin breakdowns.
Wound care consult
Severe Protein Calorie Malnutrition
Hypomagnesemia
- Severe malnutrition secondary to IVDA, cirrhosis, etc.
- Nutrition evaluation / support.
- Was on TPN for a time during prior hospital stay.
- Monitor and replace electrolytes as needed.
Anxiety Disorder
Polysubstance Use Disorder
Chronic pain
Patient declined Suboxone
Attempt to wean off hydromorphone.
Increase Neurontin to 300 mg every 8 hours
DVT Prophylaxis: Lovenox
Code Status: Full
Anticipated Discharge: > 48 hours
Subjective/Interval History
-
Date of Service: May 25, 2024
Objective Data
-
Labs:
Laboratory Results
05/25/24
04:45
WBC 11.8 H
Hgb 8.5 L
Hct 27.9 L
Plt Count 239
Sodium 133 L
Potassium 4.3
Chloride 104
Carbon Dioxide 30
BUN 19 H
Creatinine 0.2 L
Glucose 103 H
Calcium 8.1 L
Vital Signs:
Vital Signs
Temp Pulse Resp BP Pulse Ox
97.6 F 86 18 116/72 94
05/25/24 07:00 05/25/24 07:00 05/25/24 07:00 05/25/24 07:00 05/25/24 07:00
I&O
05/24/24 05/25/24 05/26/24
06:59 06:59 06:59
Intake Total 4468 / 4468 2808 / 2808
Balance 4468 / 4468 2808 / 2808
Physical Exam
-
General: No Apparent Distress
HEENT: Normocephalic, Atraumatic and Moist Mucous Membranes
Respiratory: Clear to Auscultation
Cardiac: Regular Rhythm and S1/S2; Negative Murmur, Rub or Gallop
GI: Negative Organomegaly
Rectal: Deferred by Provider
Musculoskeletal: No Clubbing, No Cyanosis, No Edema and Other (Right arm amputation)
Skin: Negative Rash
Neuro: Awake, Alert, Oriented, AO x 3 and Nonfocal/Grossly Intact
[2024-05-25] MEDS: LOVENOX 40 MG SC (16:18)
--- NOTE | 2024-05-25 17:52 | PTCARENOTE ---
Pt was drowsy today, arousable to verbal/tactile stimuli. Answers questions in short answers. Upon waking she asks for pain meds. Has received IV Dilaudid 2mg as ordered every 4 hours with relief verbalized immediately after. Refused some of
her turns, did allow wound care to see. NPO status maintained with ice chips provided. Call ferguson in reach.
[2024-05-25] MEDS: TYLENOL 650 MG PO (21:06)
[2024-05-25] MEDS: Parenteral Nutrition, Central 1360 IV (21:43)
[2024-05-25] MEDS: REMERON 15 MG PO (21:45)
[2024-05-25 23:45] VITALS: BP 109/74
[2024-05-26 00:06] LABS: Glucose - Point of Care 134 mg/dl (70-99)
[2024-05-26] MEDS: NEURONTIN PO (00:30)
[2024-05-26] MEDS: DILAUDID 2 MG IV ×5 (03:49→21:36)
[2024-05-26 05:53] LABS: Glucose - Point of Care 108 mg/dl (70-99)
[2024-05-26 05:57] LABS: % Basophils 0.3 % (0-2); % Immature Granulocytes 2.3 % (0-0.5); % Lymphocytes 26.4 % (20.5-51.1); % Monocytes 14.5 % (1.7-9.3); % Neutrophils 56.5 % (42.2-75.2); Absolute Immature Granulocytes 0.2 10^3/uL (0-0.05); Absolute Monocytes 1.1 10^3/uL (0.1-0.6); Absolute Neutrophils 4.2 10^3/uL (1.4-6.5); Hematocrit 26.2 % (37.0-47.0); Hemoglobin 8.1 g/dL (12.0-16.0); Mean Corp Hgb Conc. 30.9 g/dL (33.0-37.0); Mean Corpuscular Hgb 28.9 pg (27.0-31.0); Mean Corpuscular Volume 93.6 fL (81.0-99.0); Nucleated Red Blood Cells % 1.2 %; Platelet Count 272 10^3/uL (130-400); Red Cell Dist. Width 24.3 % (11.5-14.5); White Blood Cell Count 7.4 10^3/uL (4.8-10.8)
[2024-05-26 06:00] VITALS: BMI 22.4
[2024-05-26 06:22] LABS: ALT (SGPT) 93 U/L (0-35); AST (SGOT) 118 U/L (14-36); Alkaline Phosphatase 325 U/L (38-126); Blood Urea Nitrogen 25 mg/dl (7-17); Calcium 7.7 mg/dl (8.4-10.2); Carbon Dioxide 33 mmol/L (22-30); Chloride 101 mmol/L (98-107); Estimated Creatinine Clearance 119 ml/min; Glucose 101 mg/dl (70-99); Potassium 3.9 mmol/L (3.5-5.1); Sodium 136 mmol/L (135-145); Total Bilirubin 0.3 mg/dl (0.2-1.3); Total Protein 5.1 g/dl (6.3-8.2); eGFR > 60.00
[2024-05-26 08:14] VITALS: BP 106/71
[2024-05-26] MEDS: NSS (PRESERVATIVE FREE) 10 ML IV (09:04)
[2024-05-26] MEDS: PROTONIX IV 40 MG IV (09:04)
[2024-05-26] MEDS: NEURONTIN 400 MG PO ×2 (09:04→16:16)
[2024-05-26] MEDS: LIDOCAINE 4% PATCH TOPICAL (09:05)
[2024-05-26] MEDS: HYDROPHOR TOPICAL (09:05)
[2024-05-26] MEDS: SOLU-MEDROL PF 10 MG IV (09:06)
[2024-05-26] MEDS: LIDOCAINE 4% PATCH 1 PATCH TOPICAL (09:27)
--- NOTE | 2024-05-26 10:52 | PTCARENOTE ---
Wound dressings changed by wound care nurse yesterday at 1pm. Will check this afternoon and change any daily dressings that the pt has.
--- NOTE | 2024-05-26 11:45 | W.PN.GS2 ---
Today's Communication / Plan
-
`
Assessment / Plan
-
Assessment: 34 yo female with h/o IVDA presenting with recurrent obstructive symptoms secondary to stricture of unclear etiology Crohns vs ischemic. ?history of Crohn's for which she has been on steroids without much benefit as well as recent
ischemic event in October during a drug OD which is when her GI symptoms began. Recently treated for pancolitis, C. difficile toxin negative antigen positive completed course of vancomycin.
AFVSS
Exacerbation of obstructive symptoms with p.o. liquid challenge
Plan:
--Maintain n.p.o. until current distention improves again
--Continued TPN to ensure full daily nutritional intake and plan not to attempt aggressive dietary advancement given chronic partial small bowel obstructive symptoms that have reoccurred numerous times recently
--TPN renewed
--Trend nutritional markers, cirrhosis scores
--Wean steroids as per primary team, GI recommended slow taper prior to sign off
--Tentative plan for delayed operative intervention in 2 to 4 weeks following steroid wean and improvement in her nutrition/liver disease status
Any of the patient's fathers or her questions were fully addressed. They continue to be on board with the current treatment plan as outlined.
Subjective Data
-
Date of Service: May 26, 2024
Patient seen and examined. Father at bedside. She still has some distention but previous pain improving. No further nausea. No vomiting.
Last BM a couple days ago
Objective Data
-
Intake and Output
05/25/24 05/26/24 05/27/24
06:59 06:59 06:59
Intake Total 2808 / 2808 2454 / 2454
Balance 2808 / 2808 2454 / 2454
Intake:
Oral fluids 1440 / 1440 1200 / 1200
IV fluids (Total) 684 / 684
TPN/PPN 1368 / 1368 570 / 570
Other:
How many times incontinent 1 2
SATURATED amount urine
Vital Signs
Temp Pulse Resp BP Pulse Ox
97.4 F 116 16 106/71 97
05/26/24 08:14 05/26/24 08:14 05/26/24 08:14 05/26/24 08:14 05/26/24 08:14
Lab Results
05/26/24 05:10
05/26/24 05:10
Calcium 7.7 mg/dl (8.4-10.2) L 05/26/24 05:10
Phosphorus 3.7 mg/dl (2.5-4.5) 05/24/24 05:19
Magnesium 2.0 mg/dl (1.6-2.3) 05/24/24 05:19
Total Bilirubin 0.3 mg/dl (0.2-1.3) 05/26/24 05:10
Direct Bilirubin 0.3 mg/dl (0.0-0.4) 05/11/24 04:38
AST 118 U/L (14-36) H 05/26/24 05:10
ALT 93 U/L (0-35) H 05/26/24 05:10
Alkaline Phosphatase 325 U/L (38-126) H 05/26/24 05:10
Total Protein 5.1 g/dl (6.3-8.2) L 05/26/24 05:10
Albumin 2.0 g/dl (3.5-5.0) L 05/26/24 05:10
Physical Exam
-
NAD AAO x 3
ABD: Minimal tenderness. Soft but distended. Tympanitic.
[2024-05-26 12:05] LABS: Glucose - Point of Care 132 mg/dl (70-99)
--- NOTE | 2024-05-26 12:23 | CM ---
Chart reviewed and patient to remain on bowel rest program, TPN, plan is for skilled placement when stable. 51 referrals sent to skilled facilities.
Plan; Skilled placement.
--- NOTE | 2024-05-26 15:58 | W.PN.HOSP.TC ---
Today's Communication/Plan
-
NPO.
TPN
Assessment / Plan
Assessment / Plan
Impression:
Patient is a 34y F with PMH significant for IVDA, untreated Hep C and cirrhosis with recent complicated hospital stay for Crohn's / SBO who presents to ED complaining of SOB, abdominal pain and distention.
Recurrent at least partial SBO suspected secondary to inflammatory process in patient with Crohn's disease
Crohn's disease.
Pancolitis
C. difficile antigen positive toxin negative recently treated with oral vancomycin.
Cirrhosis secondary to untreated hepatitis C.
Hepatic encephalopathy
Recurrent ascites.
Anasarca
Severe protein calorie malnutrition
Hypovolemic hyponatremia
Anemia of chronic disease
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
Polysubstance abuse, former IVDA on Suboxone.
Anxiety disorder
Multiple skin breakdowns
Plan:
Recurrent SBO likely inflammatory in nature
CT scan with oral contrast in the ED consistent with increased from prior dilated bowel loops.
Not clear if this is Crohn's/inflammatory bowel disease exacerbation with inflammatory stricture versus prior ischemic bowel insult.
Patient has not established diagnosis of IBD as per records
05/16 with worsening abdominal pain and distention.
Continue n.p.o.
Noted rising WBC while on prednisone
CT scan of the abdomen pelvis 05/17 consistent with small bowel obstruction? Inflammatory secondary to Crohn's disease
NG tube discontinued on 05/20.
Full liquid diet with limited volume at 1200 mL. Patient understands she could not exceed that amount.
TPN
Transitioned to IV corticosteroids as per GI and continue slow taper to avoid hypoadrenal state.
Has been on antibiotics covering UTI/Zosyn
Hold oral medications
Recently treated for pancolitis
Stool cultures negative to date.
C. difficile toxin negative antigen positive completed course of vancomycin while on systemic antibiotics for pancolitis.
Anemia of chronic disease
Slowly trending down hemoglobin to sevens with no evidence of acute blood loss
Recent iron studies consistent with increased ferritin, although sufficient iron stores
Monitor closely
Transfuse to keep above 8
Fluctuating WBC. Currently trending down while off antibiotics
Currently afebrile.
Monitor closely
Hypotension
Hypovolemic hyponatremia
Patient with anasarca and third spacing.
Hold Lasix and spironolactone
Follow BMP.
Urinary tract infection
Urine culture with E. coli sensitive to Zosyn
Completed course of antibiotics from 05/15 - 05/21
Cirrhosis secondary to untreated hepatitis C.
Ascites status post paracentesis 05/04 1 L with no evidence of SBP.
Monitor for reaccumulation.
Hepatic encephalopathy. Mental status stable. Ammonia level 17 on presentation
With improvement of bowel function, resume lactulose
Right first great toe osteomyelitis status post partial amputation.
Completed course of antibiotics
Wound is dehiscent but not infected
Status post right first great toe partial amputation and revision on 05/16.
Multiple skin breakdowns.
Wound care consult
Severe Protein Calorie Malnutrition
Hypomagnesemia
- Severe malnutrition secondary to IVDA, cirrhosis, etc.
- Nutrition evaluation / support.
- Was on TPN for a time during prior hospital stay.
- Monitor and replace electrolytes as needed.
Anxiety Disorder
Polysubstance Use Disorder
Chronic pain
Patient declined Suboxone
Attempt to wean off hydromorphone.
Increase Neurontin to 300 mg every 8 hours
DVT Prophylaxis: Lovenox
Code Status: Full
Anticipated Discharge: > 48 hours
Subjective/Interval History
-
Date of Service: May 26, 2024
Objective Data
-
Labs:
Laboratory Results
05/26/24
05:10
WBC 7.4
Hgb 8.1 L
Hct 26.2 L
Plt Count 272
Sodium 136
Potassium 3.9
Chloride 101
Carbon Dioxide 33 H
BUN 25 H
Creatinine 0.3 L
Glucose 101 H
Calcium 7.7 L
Total Bilirubin 0.3
AST 118 H
ALT 93 H
Alkaline Phosphatase 325 H
Vital Signs:
Vital Signs
Temp Pulse Resp BP Pulse Ox
97.4 F 116 16 106/71 97
05/26/24 08:14 05/26/24 08:14 05/26/24 08:14 05/26/24 08:14 05/26/24 08:14
I&O
05/25/24 05/26/24 05/27/24
06:59 06:59 06:59
Intake Total 2808 / 2808 2454 / 2454
Balance 2808 / 2808 2454 / 2454
Physical Exam
-
General: No Apparent Distress
HEENT: Normocephalic, Atraumatic and Moist Mucous Membranes
Respiratory: Clear to Auscultation
Cardiac: Regular Rhythm and S1/S2; Negative Murmur, Rub or Gallop
GI: Distended; Negative Tender or Organomegaly
Rectal: Deferred by Provider
Musculoskeletal: No Clubbing, No Cyanosis, No Edema and Other (Right arm amputation)
Skin: Negative Rash
Neuro: Awake, Alert, Oriented, AO x 3 and Nonfocal/Grossly Intact
[2024-05-26 16:00] VITALS: BP 108/73
--- NOTE | 2024-05-26 16:11 | CM ---
TC from Jazmin/liaison for [facility].
If patient is to return to [facility], they have a bed available on the second floor for her. (Was on the 3rd floor and wanted to move prior to this admission).
CM will continue to follow for d/c.
[2024-05-26] MEDS: LOVENOX 40 MG SC (16:16)
[2024-05-26 18:05] LABS: Glucose - Point of Care 125 mg/dl (70-99)
[2024-05-26 21:08] LABS: Glucose - Point of Care 86 mg/dl (70-99)
[2024-05-26] MEDS: Parenteral Nutrition, Central 1360 IV (21:22)
[2024-05-26] MEDS: REMERON 15 MG PO (21:36)
[2024-05-26] MEDS: TYLENOL 650 MG PO (22:09)
--- NOTE | 2024-05-26 22:45 | PTCARENOTE ---
Pt had an episode of large loose brown stool and reports that this is her fourth episode today. MAT SEWER Ирина notified, order placed for norovirus stool sample and sent to lab, order for 1x visbiome provided to pt. No further episodes of diarrhea
during this comic book writer's shift.
[2024-05-26 23:35] VITALS: BP 105/72
[2024-05-27] MEDS: VISBIOME 1 CAP PO ×2 (00:07→08:47)
[2024-05-27] MEDS: NEURONTIN 400 MG PO ×4 (00:07→23:51)
[2024-05-27 00:09] LABS: Glucose - Point of Care 105 mg/dl (70-99)
[2024-05-27] MEDS: DILAUDID 2 MG IV ×5 (02:04→20:47)
[2024-05-27 05:38] LABS: Glucose - Point of Care 88 mg/dl (70-99)
[2024-05-27 06:00] VITALS: BMI 22.0
[2024-05-27 06:29] LABS: % Basophils 0.2 % (0-2); % Eosinophils 0.2 % (0-6); % Immature Granulocytes 2.2 % (0-0.5); % Lymphocytes 28.9 % (20.5-51.1); % Monocytes 11.4 % (1.7-9.3); % Neutrophils 57.1 % (42.2-75.2); Absolute Immature Granulocytes 0.2 10^3/uL (0-0.05); Absolute Lymphocytes 2.4 10^3/uL (1.2-3.4); Absolute Monocytes 0.9 10^3/uL (0.1-0.6); Absolute Neutrophils 4.7 10^3/uL (1.4-6.5); Hematocrit 24.8 % (37.0-47.0); Hemoglobin 7.7 g/dL (12.0-16.0); Mean Corpuscular Hgb 29.3 pg (27.0-31.0); Mean Corpuscular Volume 94.3 fL (81.0-99.0); Mean Platelet Volume 11.2 fL (7.4-10.4); Nucleated Red Blood Cells % 0.6 %; Platelet Count 283 10^3/uL (130-400); Red Blood Cell Count 2.63 10^6/uL (4.20-5.40); White Blood Cell Count 8.2 10^3/uL (4.8-10.8)
[2024-05-27 06:51] LABS: Blood Urea Nitrogen 26 mg/dl (7-17); Calcium 7.6 mg/dl (8.4-10.2); Carbon Dioxide 27 mmol/L (22-30); Chloride 105 mmol/L (98-107); Estimated Creatinine Clearance 119 ml/min; Glucose 80 mg/dl (70-99); Sodium 135 mmol/L (135-145); eGFR > 60.00
[2024-05-27 07:17] LABS: Glucose - Point of Care 90 mg/dl (70-99)
[2024-05-27 07:45] VITALS: BP 101/71
[2024-05-27] MEDS: LIDOCAINE 4% PATCH 1 PATCH TOPICAL (08:46)
[2024-05-27] MEDS: HYDROPHOR TOPICAL (08:46)
[2024-05-27] MEDS: PROTONIX IV 40 MG IV (08:47)
[2024-05-27] MEDS: SOLU-MEDROL PF 10 MG IV (08:47)
[2024-05-27] MEDS: NSS (PRESERVATIVE FREE) 10 ML IV (08:48)
--- NOTE | 2024-05-27 09:24 | W.PN.GS2 ---
Today's Communication / Plan
-
-- TPN renewed
Assessment / Plan
-
Assessment: 34 yo female with h/o IVDA presenting with recurrent obstructive symptoms secondary to stricture of unclear etiology Crohns vs ischemic. ?history of Crohn's for which she has been on steroids without much benefit as well as recent
ischemic event in October during a drug OD which is when her GI symptoms began. Recently treated for pancolitis, C. difficile toxin negative antigen positive completed course of vancomycin.
AFVSS
Exacerbation of obstructive symptoms with PO liquid challenge
Plan:
--NPO
--Continued TPN to ensure full daily nutritional intake and plan not to attempt aggressive dietary advancement given chronic partial small bowel obstructive symptoms that have reoccurred numerous times recently, TPN renewed
--Trend nutritional markers, cirrhosis scores
--Wean steroids as per primary team, GI recommended slow taper prior to sign off
--Tentative plan for delayed operative intervention in 2 to 4 weeks following steroid wean and improvement in her nutrition/liver disease status
Any of the patient's fathers or her questions were fully addressed. They continue to be on board with the current treatment plan as outlined.
Subjective Data
-
Date of Service: May 27, 2024
No nausea or vomiting. No worsening abdominal pain. Ports passing lots of flatus and some loose stools.
Objective Data
-
Intake and Output
05/26/24 05/27/24 05/28/24
06:59 06:59 06:59
Intake Total 2454 / 2454 240 / 240 570 / 570
Balance 2454 / 2454 240 / 240 570 / 570
Intake:
Oral fluids 1200 / 1200 240 / 240
IV fluids (Total) 684 / 684
TPN/PPN 570 / 570 570 / 570
Other:
How many times incontinent 2
MODERATE amount urine
How many times incontinent 2 3
SATURATED amount urine
Vital Signs
Temp Pulse Resp BP Pulse Ox
98.4 F 105 18 101/71 96
05/27/24 07:45 05/27/24 07:45 05/27/24 07:45 05/27/24 07:45 05/27/24 07:45
Lab Results
05/27/24 05:43
05/27/24 05:43
Calcium 7.6 mg/dl (8.4-10.2) L 05/27/24 05:43
Phosphorus 3.7 mg/dl (2.5-4.5) 05/24/24 05:19
Magnesium 2.0 mg/dl (1.6-2.3) 05/24/24 05:19
Total Bilirubin 0.3 mg/dl (0.2-1.3) 05/26/24 05:10
Direct Bilirubin 0.3 mg/dl (0.0-0.4) 05/11/24 04:38
AST 118 U/L (14-36) H 05/26/24 05:10
ALT 93 U/L (0-35) H 05/26/24 05:10
Alkaline Phosphatase 325 U/L (38-126) H 05/26/24 05:10
Total Protein 5.1 g/dl (6.3-8.2) L 05/26/24 05:10
Albumin 2.0 g/dl (3.5-5.0) L 05/26/24 05:10
Physical Exam
-
Gen: NAD
Abd: soft, NT/ND, non-peritoneal
--- NOTE | 2024-05-27 14:31 | W.PN.HOSP.TC ---
Today's Communication/Plan
-
Strict n.p.o.
TPN.
Assessment / Plan
Assessment / Plan
Impression:
Patient is a 34y F with PMH significant for IVDA, untreated Hep C and cirrhosis with recent complicated hospital stay for Crohn's / SBO who presents to ED complaining of SOB, abdominal pain and distention.
Recurrent at least partial SBO suspected secondary to inflammatory process in patient with Crohn's disease
Crohn's disease.
Pancolitis
C. difficile antigen positive toxin negative recently treated with oral vancomycin.
Cirrhosis secondary to untreated hepatitis C.
Hepatic encephalopathy
Recurrent ascites.
Anasarca
Severe protein calorie malnutrition
Hypovolemic hyponatremia
Anemia of chronic disease
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
Polysubstance abuse, former IVDA on Suboxone.
Anxiety disorder
Multiple skin breakdowns
Plan:
Recurrent SBO likely inflammatory in nature
CT scan with oral contrast in the ED consistent with increased from prior dilated bowel loops.
Not clear if this is Crohn's/inflammatory bowel disease exacerbation with inflammatory stricture versus prior ischemic bowel insult.
Patient has not established diagnosis of IBD as per records
05/16 with worsening abdominal pain and distention.
Continue n.p.o.
Noted rising WBC while on prednisone
CT scan of the abdomen pelvis 05/17 consistent with small bowel obstruction? Inflammatory secondary to Crohn's disease
NG tube discontinued on 05/20.
Full liquid diet with limited volume at 1200 mL. Patient understands she could not exceed that amount.
TPN
Transitioned to IV corticosteroids as per GI and continue slow taper to avoid hypoadrenal state.
Has been on antibiotics covering UTI/Zosyn
Hold oral medications
Recently treated for pancolitis
Stool cultures negative to date.
C. difficile toxin negative antigen positive completed course of vancomycin while on systemic antibiotics for pancolitis.
Anemia of chronic disease
Slowly trending down hemoglobin to sevens with no evidence of acute blood loss
Recent iron studies consistent with increased ferritin, although sufficient iron stores
Monitor closely
Transfuse to keep above 8
Fluctuating WBC. Currently trending down while off antibiotics
Currently afebrile.
Monitor closely
Hypotension
Hypovolemic hyponatremia
Patient with anasarca and third spacing.
Hold Lasix and spironolactone
Follow BMP.
Urinary tract infection
Urine culture with E. coli sensitive to Zosyn
Completed course of antibiotics from 05/15 - 05/21
Cirrhosis secondary to untreated hepatitis C.
Ascites status post paracentesis 05/04 1 L with no evidence of SBP.
Monitor for reaccumulation.
Hepatic encephalopathy. Mental status stable. Ammonia level 17 on presentation
With improvement of bowel function, resume lactulose
Right first great toe osteomyelitis status post partial amputation.
Completed course of antibiotics
Wound is dehiscent but not infected
Status post right first great toe partial amputation and revision on 05/16.
Multiple skin breakdowns.
Wound care consult
Severe Protein Calorie Malnutrition
Hypomagnesemia
- Severe malnutrition secondary to IVDA, cirrhosis, etc.
- Nutrition evaluation / support.
- Was on TPN for a time during prior hospital stay.
- Monitor and replace electrolytes as needed.
Anxiety Disorder
Polysubstance Use Disorder
Chronic pain
Patient declined Suboxone
Attempt to wean off hydromorphone.
Increase Neurontin to 300 mg every 8 hours
DVT Prophylaxis: Lovenox
Code Status: Full
Anticipated Discharge: > 48 hours
Subjective/Interval History
-
Date of Service: May 27, 2024
Objective Data
-
Labs:
Laboratory Results
05/27/24
05:43
WBC 8.2
Hgb 7.7 L
Hct 24.8 L
Plt Count 283
Sodium 135
Potassium 4.0
Chloride 105
Carbon Dioxide 27
BUN 26 H
Creatinine 0.2 L
Glucose 80
Calcium 7.6 L
Vital Signs:
Vital Signs
Temp Pulse Resp BP Pulse Ox
98.4 F 105 18 101/71 96
05/27/24 07:45 05/27/24 07:45 05/27/24 07:45 05/27/24 07:45 05/27/24 07:45
I&O
05/26/24 05/27/24 05/28/24
06:59 06:59 06:59
Intake Total 2454 / 2454 240 / 240 570 / 570
Balance 2454 / 2454 240 / 240 570 / 570
Physical Exam
-
General: No Apparent Distress
HEENT: Normocephalic, Atraumatic and Moist Mucous Membranes
Respiratory: Clear to Auscultation
Cardiac: Regular Rhythm and S1/S2; Negative Murmur, Rub or Gallop
GI: Distended; Negative Tender or Organomegaly
Rectal: Deferred by Provider
Musculoskeletal: No Clubbing, No Cyanosis, No Edema and Other (Right arm amputation)
Skin: Negative Rash
Neuro: Awake, Alert, Oriented, AO x 3 and Nonfocal/Grossly Intact
--- NOTE | 2024-05-27 14:40 | CM ---
Chart reviewed and patient was admitted from [facility] skilled, patient and father were interested in an alternative setting for patient, 51 referrals were sent. Patient is on Suboxone and most facilities do not have physician who can
order this medication. [facility] reached out to offer a different room to patient upon discharge.
Plan; To follow up with patient for placement, patient may have to return to [facility] when stable.
[2024-05-27 15:30] VITALS: BP 114/79
[2024-05-27] MEDS: SOLU-MEDROL PF 5 MG IV (15:39)
[2024-05-27] MEDS: TYLENOL 650 MG PO ×2 (15:40→23:55)
[2024-05-27 16:27] LABS: Glucose - Point of Care 134 mg/dl (70-99)
[2024-05-27] MEDS: LOVENOX 40 MG SC (16:40)
[2024-05-27] MEDS: Parenteral Nutrition, Central 1360 IV (21:14)
[2024-05-27 23:38] VITALS: BP 111/78
[2024-05-27] MEDS: MELATONIN 5 MG PO (23:51)
[2024-05-27] MEDS: REMERON 15 MG PO (23:52)
[2024-05-28 00:12] LABS: Glucose - Point of Care 110 mg/dl (70-99)
[2024-05-28] MEDS: DILAUDID 2 MG IV ×5 (01:00→19:44)
[2024-05-28 06:03] LABS: Glucose - Point of Care 105 mg/dl (70-99)
[2024-05-28 06:16] LABS: % Basophils 0.2 % (0-2); % Eosinophils 0.1 % (0-6); % Immature Granulocytes 1.2 % (0-0.5); % Lymphocytes 25.4 % (20.5-51.1); % Monocytes 9.2 % (1.7-9.3); % Neutrophils 63.9 % (42.2-75.2); Absolute Immature Granulocytes 0.1 10^3/uL (0-0.05); Absolute Lymphocytes 2.4 10^3/uL (1.2-3.4); Absolute Monocytes 0.9 10^3/uL (0.1-0.6); Hematocrit 24.8 % (37.0-47.0); Hemoglobin 7.5 g/dL (12.0-16.0); Mean Corp Hgb Conc. 30.2 g/dL (33.0-37.0); Mean Corpuscular Hgb 29.4 pg (27.0-31.0); Mean Corpuscular Volume 97.3 fL (81.0-99.0); Mean Platelet Volume 11.1 fL (7.4-10.4); Nucleated Red Blood Cells % 0.4 %; Platelet Count 314 10^3/uL (130-400); Red Blood Cell Count 2.55 10^6/uL (4.20-5.40); Red Cell Dist. Width 23.8 % (11.5-14.5); White Blood Cell Count 9.4 10^3/uL (4.8-10.8)
[2024-05-28 07:33] LABS: Glucose - Point of Care 93 mg/dl (70-99)
[2024-05-28 07:50] VITALS: BP 98/68
[2024-05-28] MEDS: NEURONTIN 400 MG PO ×2 (08:20→17:21)
[2024-05-28] MEDS: PROTONIX IV 40 MG IV (08:21)
[2024-05-28] MEDS: VISBIOME 1 CAP PO (08:21)
[2024-05-28] MEDS: NSS (PRESERVATIVE FREE) 10 ML IV (08:21)
[2024-05-28] MEDS: SOLU-MEDROL PF 5 MG IV (08:22)
[2024-05-28] MEDS: LIDOCAINE 4% PATCH 1 PATCH TOPICAL (08:23)
[2024-05-28] MEDS: HYDROPHOR 1 APPLIC TOPICAL (08:27)
--- NOTE | 2024-05-28 09:04 | W.PN.HOSP.TC ---
Today's Communication/Plan
-
Continue n.p.o., TPN
Assessment / Plan
Assessment / Plan
Impression:
Patient is a 34y F with PMH significant for IVDA, untreated Hep C and cirrhosis with recent complicated hospital stay for Crohn's / SBO who presents to ED complaining of SOB, abdominal pain and distention.
Recurrent at least partial SBO suspected secondary to inflammatory process in patient with Crohn's disease
Crohn's disease.
Pancolitis
C. difficile antigen positive toxin negative recently treated with oral vancomycin.
Cirrhosis secondary to untreated hepatitis C.
Hepatic encephalopathy
Recurrent ascites.
Anasarca
Severe protein calorie malnutrition
Hypovolemic hyponatremia
Anemia of chronic disease
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
Polysubstance abuse, former IVDA on Suboxone.
Anxiety disorder
Multiple skin breakdowns
Plan:
Recurrent SBO likely inflammatory in nature
CT scan with oral contrast in the ED consistent with increased from prior dilated bowel loops.
Not clear if this is Crohn's/inflammatory bowel disease exacerbation with inflammatory stricture versus prior ischemic bowel insult.
Patient has not established diagnosis of IBD as per records
05/16 with worsening abdominal pain and distention.
Continue n.p.o.
Noted rising WBC while on prednisone
CT scan of the abdomen pelvis 05/17 consistent with small bowel obstruction? Inflammatory secondary to Crohn's disease
NG tube discontinued on 05/20.
Full liquid diet with limited volume at 1200 mL. Patient understands she could not exceed that amount.
TPN
Transitioned to IV corticosteroids as per GI and continue slow taper to avoid hypoadrenal state.
Has been on antibiotics covering UTI/Zosyn
Hold oral medications
Recently treated for pancolitis
Stool cultures negative to date.
C. difficile toxin negative antigen positive completed course of vancomycin while on systemic antibiotics for pancolitis.
Anemia of chronic disease
Slowly trending down hemoglobin to sevens with no evidence of acute blood loss
Recent iron studies consistent with increased ferritin, although sufficient iron stores
Monitor closely
Transfuse to keep above 8
Fluctuating WBC. Currently trending down while off antibiotics
Currently afebrile.
Monitor closely
Hypotension
Hypovolemic hyponatremia
Patient with anasarca and third spacing.
Hold Lasix and spironolactone
Follow BMP.
Urinary tract infection
Urine culture with E. coli sensitive to Zosyn
Completed course of antibiotics from 05/15 - 05/21
Cirrhosis secondary to untreated hepatitis C.
Ascites status post paracentesis 05/04 1 L with no evidence of SBP.
Monitor for reaccumulation.
Hepatic encephalopathy. Mental status stable. Ammonia level 17 on presentation
With improvement of bowel function, resume lactulose
Right first great toe osteomyelitis status post partial amputation.
Completed course of antibiotics
Wound is dehiscent but not infected
Status post right first great toe partial amputation and revision on 05/16.
Multiple skin breakdowns.
Wound care consult
Severe Protein Calorie Malnutrition
Hypomagnesemia
- Severe malnutrition secondary to IVDA, cirrhosis, etc.
- Nutrition evaluation / support.
- Was on TPN for a time during prior hospital stay.
- Monitor and replace electrolytes as needed.
Anxiety Disorder
Polysubstance Use Disorder
Chronic pain
Patient declined Suboxone
Attempt to wean off hydromorphone.
Increase Neurontin to 300 mg every 8 hours
DVT Prophylaxis: Lovenox
Code Status: Full
Total time spent to see the patient on the floor, examine the patient, review data and lab results, discuss treatment plan with patient, nursing staff around 36 minutes.
Physical Exam
General: No acute distress
HEENT: Normocephalic, Atraumatic, EOMI, MMM
Respiratory: Clear to Auscultation bilaterally
Cardiac: Normal S1/S2, Regular Rate and Rhythm
GI: Soft, Nontender, Nondistended, Normal Bowel Sounds
Extremities: No Clubbing, Cyanosis
2+ bilateral lower extremity edema noted
Right upper extremity amputation noted
Neuro: Nonfocal/Grossly Intact
Anticipated Discharge: > 48 hours
Subjective/Interval History
-
Date of Service: May 28, 2024
Follow-up for Crohn's disease and SBO. Denies abdominal pain. Reports flatus and bowel movements. Denies nausea, denies vomiting. No fever, no chest pain, no shortness of breath.
Objective Data
-
Labs:
Laboratory Results
05/28/24
05:43
WBC 9.4
Hgb 7.5 L
Hct 24.8 L
Plt Count 314
Vital Signs:
Vital Signs
Temp Pulse Resp BP Pulse Ox
97.5 F 82 18 98/68 98
05/28/24 07:50 05/28/24 07:50 05/28/24 07:50 05/28/24 07:50 05/28/24 07:50
I&O
05/27/24 05/28/24 05/29/24
06:59 06:59 06:59
Intake Total 240 / 240 810 / 810
Balance 240 / 240 810 / 810
--- NOTE | 2024-05-28 12:02 | W.PN.SURGUPD ---
Surgical Update
Surgical Update
Chart reviewed, no significant changes from surgical standpoint:
--Continue NPO
--Continue TPN to ensure full daily nutritional intake, orders placed to renew
--plan not to attempt aggressive dietary advancement given chronic partial small bowel obstructive symptoms that have reoccurred numerous times recently
--Trend nutritional markers, cirrhosis scores
--Continue steroid taper
Tentative plan for delayed operative intervention in 2 to 4 weeks following steroid wean and improvement in her nutrition/liver disease status
[2024-05-28 15:59] VITALS: BP 91/57
[2024-05-28 17:19] LABS: Glucose - Point of Care 105 mg/dl (70-99)
[2024-05-28] MEDS: LOVENOX 40 MG SC (17:22)
[2024-05-28] MEDS: Parenteral Nutrition, Central 1360 IV (21:19)
[2024-05-28] MEDS: MELATONIN 5 MG PO (21:34)
[2024-05-28] MEDS: REMERON 15 MG PO (21:34)
[2024-05-28 23:18] VITALS: BP 113/73
[2024-05-29] MEDS: NEURONTIN 400 MG PO ×3 (00:13→15:02)
[2024-05-29] MEDS: DILAUDID 2 MG IV ×6 (00:13→20:58)
[2024-05-29 00:18] LABS: Glucose - Point of Care 89 mg/dl (70-99)
[2024-05-29 06:00] VITALS: BMI 22.3
[2024-05-29 06:21] LABS: Glucose - Point of Care 96 mg/dl (70-99)
[2024-05-29 08:09] VITALS: BP 106/72
[2024-05-29 08:30] LABS: % Basophils 0.3 % (0-2); % Immature Granulocytes 2.3 % (0-0.5); % Lymphocytes 28.6 % (20.5-51.1); % Monocytes 7.8 % (1.7-9.3); Absolute Immature Granulocytes 0.3 10^3/uL (0-0.05); Absolute Lymphocytes 3.9 10^3/uL (1.2-3.4); Absolute Monocytes 1.1 10^3/uL (0.1-0.6); Absolute Neutrophils 8.3 10^3/uL (1.4-6.5); Hematocrit 23.3 % (37.0-47.0); Hemoglobin 7.4 g/dL (12.0-16.0); Mean Corp Hgb Conc. 31.8 g/dL (33.0-37.0); Mean Corpuscular Hgb 29.6 pg (27.0-31.0); Mean Corpuscular Volume 93.2 fL (81.0-99.0); Mean Platelet Volume 10.8 fL (7.4-10.4); Nucleated Red Blood Cells % 0.4 %; Platelet Count 362 10^3/uL (130-400); Red Cell Dist. Width 23.8 % (11.5-14.5); White Blood Cell Count 13.6 10^3/uL (4.8-10.8)
--- NOTE | 2024-05-29 08:37 | W.PN.HOSP.TC ---
Today's Communication/Plan
-
Start Flexeril for leg cramps
Continue n.p.o., TPN
Assessment / Plan
Assessment / Plan
Impression:
Patient is a 34y F with PMH significant for IVDA, untreated Hep C and cirrhosis with recent complicated hospital stay for Crohn's / SBO who presents to ED complaining of SOB, abdominal pain and distention.
Recurrent at least partial SBO suspected secondary to inflammatory process in patient with Crohn's disease
Crohn's disease.
Pancolitis
C. difficile antigen positive toxin negative recently treated with oral vancomycin.
Cirrhosis secondary to untreated hepatitis C.
Hepatic encephalopathy
Recurrent ascites.
Anasarca
Severe protein calorie malnutrition
Hypovolemic hyponatremia
Anemia of chronic disease
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
Polysubstance abuse, former IVDA on Suboxone.
Anxiety disorder
Multiple skin breakdowns
Plan:
Recurrent SBO likely inflammatory in nature
CT scan with oral contrast in the ED consistent with increased from prior dilated bowel loops.
Not clear if this is Crohn's/inflammatory bowel disease exacerbation with inflammatory stricture versus prior ischemic bowel insult.
Patient has not established diagnosis of IBD as per records
05/16 with worsening abdominal pain and distention.
Continue n.p.o.
Noted rising WBC while on prednisone
CT scan of the abdomen pelvis 05/17 consistent with small bowel obstruction? Inflammatory secondary to Crohn's disease
NG tube discontinued on 05/20.
Full liquid diet with limited volume at 1200 mL. Patient understands she could not exceed that amount.
TPN
Transitioned to IV corticosteroids as per GI and continue slow taper to avoid hypoadrenal state.
Has been on antibiotics covering UTI/Zosyn
Hold oral medications
Recently treated for pancolitis
Stool cultures negative to date.
C. difficile toxin negative antigen positive completed course of vancomycin while on systemic antibiotics for pancolitis.
Anemia of chronic disease
Slowly trending down hemoglobin to sevens with no evidence of acute blood loss
Recent iron studies consistent with increased ferritin, although sufficient iron stores
Monitor closely
Transfuse to keep above 8
Fluctuating WBC. Currently trending down while off antibiotics
Currently afebrile.
Monitor closely
Hypotension
Hypovolemic hyponatremia
Patient with anasarca and third spacing.
Hold Lasix and spironolactone
Follow BMP.
Urinary tract infection
Urine culture with E. coli sensitive to Zosyn
Completed course of antibiotics from 05/15 - 05/21
Cirrhosis secondary to untreated hepatitis C.
Ascites status post paracentesis 05/04 1 L with no evidence of SBP.
Monitor for reaccumulation.
Hepatic encephalopathy. Mental status stable. Ammonia level 17 on presentation
With improvement of bowel function, resume lactulose
Right first great toe osteomyelitis status post partial amputation.
Completed course of antibiotics
Wound is dehiscent but not infected
Status post right first great toe partial amputation and revision on 05/16.
Multiple skin breakdowns.
Wound care consult
Severe Protein Calorie Malnutrition
Hypomagnesemia
- Severe malnutrition secondary to IVDA, cirrhosis, etc.
- Nutrition evaluation / support.
- Was on TPN for a time during prior hospital stay.
- Monitor and replace electrolytes as needed.
Leg cramps
- Start Flexeril 5 mg 3 times daily 05/29
Anxiety Disorder
Polysubstance Use Disorder
Chronic pain
Patient declined Suboxone
Attempt to wean off hydromorphone.
Increase Neurontin to 300 mg every 8 hours
DVT Prophylaxis: Lovenox
Code Status: Full
Total time spent to see the patient on the floor, examine the patient, review data and lab results, discuss treatment plan with patient, nursing staff around 38 minutes.
Physical Exam
General: No acute distress
HEENT: Normocephalic, Atraumatic, EOMI, MMM
Respiratory: Clear to Auscultation bilaterally
Cardiac: Normal S1/S2, Regular Rate and Rhythm
GI: Soft, Nontender, Nondistended, Normal Bowel Sounds
Extremities: No Clubbing, Cyanosis
2+ bilateral lower extremity edema noted
Right upper extremity amputation with edema of stump noted
Neuro: Nonfocal/Grossly Intact
Anticipated Discharge: > 48 hours
Subjective/Interval History
-
Date of Service: May 29, 2024
Patient complains of leg cramps. No chest pain, no shortness of breath. No abdominal pain, no nausea, no vomiting. She is passing gas and having bowel movements.
Objective Data
-
Labs:
Laboratory Results
05/29/24
08:15
WBC 13.6 H
Hgb 7.4 L
Hct 23.3 L
Plt Count 362
Sodium Pending
Potassium Pending
Chloride Pending
Carbon Dioxide Pending
BUN Pending
Creatinine Pending
Glucose Pending
Calcium Pending
Vital Signs:
Vital Signs
Temp Pulse Resp BP Pulse Ox
99.1 F 126 18 106/72 100
05/29/24 08:09 05/29/24 08:09 05/29/24 08:09 05/29/24 08:09 05/29/24 08:09
I&O
05/28/24 05/29/24 05/30/24
06:59 06:59 06:59
Intake Total 810 / 810 240 / 240
Balance 810 / 810 240 / 240
[2024-05-29] MEDS: PROTONIX IV 40 MG IV (08:41)
[2024-05-29] MEDS: SOLU-MEDROL PF 5 MG IV (08:41)
[2024-05-29] MEDS: NSS (PRESERVATIVE FREE) 10 ML IV (08:43)
[2024-05-29] MEDS: LIDOCAINE 4% PATCH 1 PATCH TOPICAL (08:44)
[2024-05-29] MEDS: VISBIOME 1 CAP PO (08:46)
[2024-05-29 08:59] LABS: Anisocytosis 1+; Hypochromasia 1+; Polychromasia 1+; Target Cells 1+
[2024-05-29 09:16] LABS: Blood Urea Nitrogen 20 mg/dl (7-17); Calcium 7.4 mg/dl (8.4-10.2); Carbon Dioxide 28 mmol/L (22-30); Chloride 104 mmol/L (98-107); Estimated Creatinine Clearance 119 ml/min; Glucose 80 mg/dl (70-99); Magnesium 1.6 mg/dl (1.6-2.3); Phosphorus 3.5 mg/dl (2.5-4.5); Potassium 4.3 mmol/L (3.5-5.1); Sodium 133 mmol/L (135-145); eGFR > 60.00
[2024-05-29 09:30] LABS: Normal RBC Morphology No
--- NOTE | 2024-05-29 10:20 | W.PN.GS2 ---
Addendum entered and electronically signed by Dario Unger MD 05/29/24 10:33:
Patient seen and examined. Agree with assessment plan as documented below.
No complaints. Denies worsening abdominal pain. No nausea or vomiting. Continues to pass flatus and stools.
Patient is a 34 yo F with h/o IVDA presenting with recurrent obstructive symptoms secondary to stricture of unclear etiology Crohns vs ischemic. ?history of Crohn's for which she has been on steroids without much benefit as well as recent ischemic
event in October during a drug OD which is when her GI symptoms began. Recently treated for pancolitis, C. difficile toxin negative antigen positive completed course of vancomycin.
AFVSS
Exacerbation of obstructive symptoms with PO liquid challenge
Plan:
--Continue NPO
--Continue TPN to ensure full daily nutritional intake, orders placed to renew
--Plan not to attempt aggressive dietary advancement given chronic partial small bowel obstructive symptoms that have reoccurred numerous times recently
--Trend nutritional markers, cirrhosis scores
--Continue steroid taper
Original Note:
Today's Communication / Plan
-
continue tpn
Assessment / Plan
-
Assessment: 34 yo female with h/o IVDA presenting with recurrent obstructive symptoms secondary to stricture of unclear etiology Crohns vs ischemic. ?history of Crohn's for which she has been on steroids without much benefit as well as recent
ischemic event in October during a drug OD which is when her GI symptoms began. Recently treated for pancolitis, C. difficile toxin negative antigen positive completed course of vancomycin.
AFVSS
Exacerbation of obstructive symptoms with PO liquid challenge
Plan:
--Continue NPO
--Continue TPN to ensure full daily nutritional intake, orders placed to renew
--plan not to attempt aggressive dietary advancement given chronic partial small bowel obstructive symptoms that have reoccurred numerous times recently
--Trend nutritional markers, cirrhosis scores
--Continue steroid taper
Tentative plan for delayed operative intervention in 2 to 4 weeks following steroid wean and improvement in her nutrition/liver disease status
Subjective Data
-
Date of Service: May 29, 2024
Patient denies acute complaints. No n/v. Passing flatus and loose stools.
Objective Data
-
Intake and Output
05/28/24 05/29/24 05/30/24
06:59 06:59 06:59
Intake Total 810 / 810 240 / 240
Balance 810 / 810 240 / 240
Intake:
Oral fluids 240 / 240 240 / 240
TPN/PPN 570 / 570
Other:
How many times incontinent 2
MODERATE amount urine
How many times incontinent 3
SATURATED amount urine
Vital Signs
Temp Pulse Resp BP Pulse Ox
99.1 F 126 18 106/72 100
05/29/24 08:09 05/29/24 08:09 05/29/24 08:09 05/29/24 08:09 05/29/24 08:09
Lab Results
05/29/24 08:15
05/29/24 08:15
Calcium 7.4 mg/dl (8.4-10.2) L 05/29/24 08:15
Phosphorus 3.5 mg/dl (2.5-4.5) 05/29/24 08:15
Magnesium 1.6 mg/dl (1.6-2.3) 05/29/24 08:15
Total Bilirubin 0.3 mg/dl (0.2-1.3) 05/26/24 05:10
Direct Bilirubin 0.3 mg/dl (0.0-0.4) 05/11/24 04:38
AST 118 U/L (14-36) H 05/26/24 05:10
ALT 93 U/L (0-35) H 05/26/24 05:10
Alkaline Phosphatase 325 U/L (38-126) H 05/26/24 05:10
Total Protein 5.1 g/dl (6.3-8.2) L 05/26/24 05:10
Albumin 2.0 g/dl (3.5-5.0) L 05/26/24 05:10
Physical Exam
-
Gen: NAD
Abd: soft, NT/ND, non-peritoneal
[2024-05-29] MEDS: FLEXERIL 10 MG PO ×3 (12:03→21:24)
[2024-05-29] MEDS: TYLENOL 650 MG PO (12:06)
[2024-05-29 12:14] LABS: Glucose - Point of Care 129 mg/dl (70-99)
[2024-05-29] MEDS: HYDROPHOR 1 APPLIC TOPICAL (13:04)
[2024-05-29 15:09] VITALS: BP 99/64
[2024-05-29] MEDS: LOVENOX 40 MG SC (16:49)
[2024-05-29 17:59] LABS: Glucose - Point of Care 126 mg/dl (70-99)
[2024-05-29] MEDS: Parenteral Nutrition, Central 1360 IV (20:13)
[2024-05-29] MEDS: REMERON 15 MG PO (21:24)
[2024-05-29] MEDS: MELATONIN 5 MG PO (21:47)
[2024-05-29 23:32] VITALS: BP 105/70
[2024-05-30] MEDS: NEURONTIN 400 MG PO ×3 (00:12→17:11)
[2024-05-30 00:21] LABS: Glucose - Point of Care 96 mg/dl (70-99)
[2024-05-30] MEDS: DILAUDID 2 MG IV ×6 (01:06→21:21)
[2024-05-30 05:43] LABS: % Basophils 0.3 % (0-2); % Eosinophils 0.1 % (0-6); % Immature Granulocytes 2.1 % (0-0.5); % Lymphocytes 23.2 % (20.5-51.1); % Neutrophils 67.3 % (42.2-75.2); Absolute Immature Granulocytes 0.3 10^3/uL (0-0.05); Absolute Lymphocytes 3.5 10^3/uL (1.2-3.4); Absolute Monocytes 1.1 10^3/uL (0.1-0.6); Absolute Neutrophils 10.2 10^3/uL (1.4-6.5); Hemoglobin 7.3 g/dL (12.0-16.0); Mean Corp Hgb Conc. 30.4 g/dL (33.0-37.0); Mean Corpuscular Hgb 29.2 pg (27.0-31.0); Mean Platelet Volume 10.9 fL (7.4-10.4); Nucleated Red Blood Cells % 0.4 %; Platelet Count 394 10^3/uL (130-400); Red Cell Dist. Width 23.2 % (11.5-14.5); White Blood Cell Count 15.2 10^3/uL (4.8-10.8)
[2024-05-30 05:54] LABS: Glucose - Point of Care 107 mg/dl (70-99)
[2024-05-30 06:00] VITALS: BMI 22.2
[2024-05-30 06:05] LABS: ALT (SGPT) 47 U/L (0-35); AST (SGOT) 54 U/L (14-36); Albumin 1.9 g/dl (3.5-5.0); Alkaline Phosphatase 262 U/L (38-126); Blood Urea Nitrogen 16 mg/dl (7-17); Calcium 7.3 mg/dl (8.4-10.2); Carbon Dioxide 25 mmol/L (22-30); Chloride 104 mmol/L (98-107); Estimated Creatinine Clearance 119 ml/min; Glucose 87 mg/dl (70-99); Magnesium 1.7 mg/dl (1.6-2.3); Phosphorus 3.8 mg/dl (2.5-4.5); Potassium 4.3 mmol/L (3.5-5.1); Sodium 131 mmol/L (135-145); Total Bilirubin 0.3 mg/dl (0.2-1.3); Total Protein 5.1 g/dl (6.3-8.2); Triglycerides 73 mg/dl (10-149); eGFR > 60.00
[2024-05-30 07:42] VITALS: BP 93/60
[2024-05-30] MEDS: PROTONIX IV 40 MG IV (08:35)
[2024-05-30] MEDS: VISBIOME 1 CAP PO (08:35)
[2024-05-30] MEDS: FLEXERIL 10 MG PO ×2 (08:35→17:11)
[2024-05-30] MEDS: HYDROPHOR 1 APPLIC TOPICAL (08:35)
[2024-05-30] MEDS: LIDOCAINE 4% PATCH TOPICAL ×2 (08:35→08:45)
[2024-05-30] MEDS: NSS (PRESERVATIVE FREE) 10 ML IV (08:35)
--- NOTE | 2024-05-30 09:06 | W.PN.SURGUPD ---
Surgical Update
Surgical Update
patient is s/p R hallux amputation revision 05/16.
-Patient seen and evaluated at bedside
-Hallux amputation site well coapted and healing. No signs of acute infection
-Continue local wound care 3x weekly, see previous orders
-Continue PT/OT
-Will continue to follow
--- NOTE | 2024-05-30 09:09 | W.PN.SURGUPD ---
Addendum entered and electronically signed by Dario Unger MD 05/30/24 12:38:
Nursing reports worsening abdominal distention and pain.
-- Place NGT and obtain abdominal x-ray
Original Note:
Surgical Update
Surgical Update
Patient seen. No reports of nausea or vomiting. No reports of pain.
AVSS
Leukocytosis, stable anemia, hyponatremia
-- TPN renewed, need for correction of lytes noted
-- Will discuss with nutrition further optimization of TPN as her albumin has not improved much over the past week, transaminitis noticed and likely combination of TPN and underlying cirrhosis (not worsened)
[2024-05-30 11:41] LABS: Glucose - Point of Care 115 mg/dl (70-99)
--- NOTE | 2024-05-30 12:15 | PTCARENOTE ---
05/30- Patient is yelling out in pain, stating abdominal pain significant at 10/10. She is asking for the Dilaudid. Dilaudid was last administered at 08:43, therefore cannot be administered again until 12:43. Upon previous assessment, patient has
+1 pitting generalized anasarca with soft/NT yet distended round belly. Upon this assessment, patient has firm/tender/round distended belly. +hypoactive BS. Educated patient on Dilaudid usage, self-care for GI health. She verbalized understanding
but states 'I don't care. I need it too much right now.' Notified Physician and GI Physician.
[2024-05-30] MEDS: ZOFRAN 4 MG IV ×2 (12:47→21:20)
--- NOTE | 2024-05-30 15:52 | W.PN.HOSP.TC ---
Today's Communication/Plan
-
Continue NG tube.
Continue TPN
Strict n.p.o.
Chest x-ray with bilateral infiltrates suspect aspiration pneumonia. Start Zosyn
Monitor temperature curve
Monitor WBC
Assessment / Plan
Assessment / Plan
Impression:
Patient is a 34y F with PMH significant for IVDA, untreated Hep C and cirrhosis with recent complicated hospital stay for Crohn's / SBO who presents to ED complaining of SOB, abdominal pain and distention.
Recurrent at least partial SBO suspected secondary to inflammatory process in patient with Crohn's disease
Aspiration pneumonia
Crohn's disease.
Pancolitis
C. difficile antigen positive toxin negative recently treated with oral vancomycin.
Cirrhosis secondary to untreated hepatitis C.
Hepatic encephalopathy
Recurrent ascites.
Anasarca
Severe protein calorie malnutrition
Hypovolemic hyponatremia
Anemia of chronic disease
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
Polysubstance abuse, former IVDA on Suboxone.
Anxiety disorder
Multiple skin breakdowns
Plan:
Recurrent SBO likely inflammatory in nature
CT scan with oral contrast in the ED consistent with increased from prior dilated bowel loops.
Not clear if this is Crohn's/inflammatory bowel disease exacerbation with inflammatory stricture versus prior ischemic bowel insult.
Patient has not established diagnosis of IBD as per records
05/16 with worsening abdominal pain and distention.
Continue n.p.o.
Noted rising WBC while on prednisone
CT scan of the abdomen pelvis 05/17 consistent with small bowel obstruction? Inflammatory secondary to Crohn's disease
NG tube discontinued on 05/20.
Full liquid diet with limited volume at 1200 mL. Patient understands she could not exceed that amount.
TPN
Transitioned to IV corticosteroids as per GI and continue slow taper to avoid hypoadrenal state.
Has been on antibiotics covering UTI/Zosyn
Hold oral medications
Recently treated for pancolitis
Stool cultures negative to date.
C. difficile toxin negative antigen positive completed course of vancomycin while on systemic antibiotics for pancolitis.
Aspiration pneumonia
Noted with rising WBC on 05/29 - 05/30
Follow-up imaging with obstruction series consistent with right greater than left bilateral infiltrate.
Started Zosyn
Anemia of chronic disease
Slowly trending down hemoglobin to sevens with no evidence of acute blood loss
Recent iron studies consistent with increased ferritin, although sufficient iron stores
Monitor closely
Transfuse to keep above 8
Hypotension
Hypovolemic hyponatremia
Patient with anasarca and third spacing.
Hold Lasix and spironolactone
Follow BMP.
Urinary tract infection
Urine culture with E. coli sensitive to Zosyn
Completed course of antibiotics from 05/15 - 05/21
Cirrhosis secondary to untreated hepatitis C.
Ascites status post paracentesis 05/04 1 L with no evidence of SBP.
Monitor for reaccumulation.
Hepatic encephalopathy. Mental status stable. Ammonia level 17 on presentation
With improvement of bowel function, resume lactulose
Right first great toe osteomyelitis status post partial amputation.
Completed course of antibiotics
Wound is dehiscent but not infected
Status post right first great toe partial amputation and revision on 05/16.
Multiple skin breakdowns.
Wound care consult
Severe Protein Calorie Malnutrition
Hypomagnesemia
- Severe malnutrition secondary to IVDA, cirrhosis, etc.
- Nutrition evaluation / support.
- Was on TPN for a time during prior hospital stay.
- Monitor and replace electrolytes as needed.
Leg cramps
- Start Flexeril 5 mg 3 times daily 05/29
Anxiety Disorder
Polysubstance Use Disorder
Chronic pain
Patient declined Suboxone
Attempt to wean off hydromorphone.
Increase Neurontin to 300 mg every 8 hours
DVT Prophylaxis: Lovenox
Code Status: Full
Total time spent to see the patient on the floor, examine the patient, review data and lab results, discuss treatment plan with patient, nursing staff around 38 minutes.
Anticipated Discharge: 24 - 48 hours
Subjective/Interval History
-
Date of Service: May 30, 2024
Objective Data
-
Labs:
Laboratory Results
05/30/24
04:39
WBC 15.2 H
Hgb 7.3 L
Hct 24.0 L
Plt Count 394
Sodium 131 L
Potassium 4.3
Chloride 104
Carbon Dioxide 25
BUN 16
Creatinine 0.2 L
Glucose 87
Calcium 7.3 L
Total Bilirubin 0.3
AST 54 H
ALT 47 H
Alkaline Phosphatase 262 H
Vital Signs:
Vital Signs
Temp Pulse Resp BP Pulse Ox
99.8 F 122 20 93/60 99
05/30/24 07:42 05/30/24 07:42 05/30/24 07:42 05/30/24 07:42 05/30/24 08:35
I&O
05/29/24 05/30/24 05/31/24
06:59 06:59 06:59
Intake Total 240 / 240 570 / 570
Balance 240 / 240 570 / 570
Physical Exam
-
General: No Apparent Distress
HEENT: Normocephalic, Atraumatic and Moist Mucous Membranes
Respiratory: Clear to Auscultation
Cardiac: Regular Rhythm and S1/S2; Negative Murmur, Rub or Gallop
GI: Distended; Negative Tender or Organomegaly
Rectal: Deferred by Provider
Musculoskeletal: No Clubbing, No Cyanosis, No Edema and Other (Right arm amputation)
Skin: Negative Rash
Neuro: Awake, Alert, Oriented, AO x 3 and Nonfocal/Grossly Intact
[2024-05-30 16:24] VITALS: BP 110/75
[2024-05-30] MEDS: ZOSYN 50 IV ×2 (17:10→22:29)
[2024-05-30] MEDS: LOVENOX 40 MG SC (17:11)
[2024-05-30 18:01] LABS: Glucose - Point of Care 116 mg/dl (70-99)
[2024-05-30] MEDS: Parenteral Nutrition, Central 1360 IV (20:21)
[2024-05-30] MEDS: FLEXERIL PO ×2 (22:29→22:41)
[2024-05-30] MEDS: REMERON PO ×2 (22:29→22:41)
[2024-05-30] MEDS: MELATONIN PO ×2 (22:29→22:41)
[2024-05-30 23:32] VITALS: BP 101/66
[2024-05-31] MEDS: NEURONTIN PO (00:20)
[2024-05-31 00:47] LABS: Glucose - Point of Care 116 mg/dl (70-99)
--- NOTE | 2024-05-31 01:00 | PTCARENOTE ---
Pt removed her NG tube and told this check writer that 'there's nothing coming out, so there's no point in me having it in'. NG tube without any output during this shift. No vomiting; pt reported nausea at the beginning of this RN's shift that resolved
after PRN IV Zofran admin. [employer] notified that pt removed her NG tube and she has had no vomiting during shift. Will continue to monitor for worsening GI symptoms.
[2024-05-31] MEDS: DILAUDID 2 MG IV ×5 (01:22→20:35)
[2024-05-31] MEDS: ZOSYN 50 IV ×4 (04:44→21:29)
[2024-05-31] MEDS: ZOFRAN 4 MG IV ×2 (05:29→19:51)
[2024-05-31 06:00] VITALS: BMI 22.2
[2024-05-31 06:06] LABS: Glucose - Point of Care 117 mg/dl (70-99)
[2024-05-31] MEDS: NEURONTIN 400 MG PO ×2 (07:54→15:47)
[2024-05-31] MEDS: HYDROPHOR 1 APPLIC TOPICAL (07:55)
[2024-05-31] MEDS: FLEXERIL 10 MG PO ×3 (07:55→21:51)
[2024-05-31] MEDS: VISBIOME 1 CAP PO (07:55)
[2024-05-31] MEDS: NSS (PRESERVATIVE FREE) 10 ML IV (07:55)
[2024-05-31] MEDS: LIDOCAINE 4% PATCH TOPICAL (07:55)
[2024-05-31] MEDS: PROTONIX IV 40 MG IV (07:56)
[2024-05-31 07:58] VITALS: BP 98/62
[2024-05-31] MEDS: LOVENOX SC (07:58)
--- NOTE | 2024-05-31 09:05 | PTCARENOTE ---
05/31- Patient is yelling out for Nurse stating, 'when can I get the Dilaudid? Can you ask the doctor if I can get an extra one-time dose?' Patient states current pain is 10/10 muscle spasms in her legs with shooting pains up her legs. Advised I
will speak with Physician. Attempted again to educate patient on usage of Dilaudid and how it affects her GI health. She states, 'I don't care. Just get me more.' Notified Physician.
--- NOTE | 2024-05-31 10:23 | W.PN.UPDATE ---
Update Note
Progress Note Update
Nausea improved. Pain controlled. Belly soft, distended, nt. TPN renewed, Mg increased. Prealbumin and transferrin ordered.
[2024-05-31 11:40] LABS: Glucose - Point of Care 129 mg/dl (70-99)
[2024-05-31 11:44] VITALS: BP 117/78; PULSE 108
[2024-05-31 11:50] VITALS: BP 115/85
[2024-05-31 11:58] LABS: Prealbumin (Transthyretin) 5.2 mg/dl (17.6-36.0)
[2024-05-31 12:02] VITALS: BP 115/75
--- NOTE | 2024-05-31 12:05 | PTCARENOTE ---
05/31- PT informed this RN that patient desatted on RA, is tachypneic and shallow respirations. This RN observed patient with mildly sallow skin, pale lips, Cap refill=2sec; POX=82% on RA with CK=705. Bradypnea and shallow respirations observed.
Patient has been drowsy and lethargic all day. Applied 2L O2 to patient; Notified Physicians. Patient laying down. New current respirations are 12 on the 2L; POX returned to 94% on 2L at rest; HR returned to normal range as well. Continue to
monitor.
--- NOTE | 2024-05-31 12:24 | PTCARENOTE ---
05/31- Patient stabilized on 2L O2. Color returned. Cap refill<2sec on 2L at rest. RR=12, POX=95% on 2L O2. Patient states she adamantly refuses NGT. She will not allow us to place another at this time. Notified Physician. No NGT placement
at this time. Continue to monitor.
[2024-05-31 13:04] LABS: % Basophils 0.2 % (0-2); % Eosinophils 0.1 % (0-6); % Immature Granulocytes 1.6 % (0-0.5); % Lymphocytes 17.4 % (20.5-51.1); % Monocytes 8.8 % (1.7-9.3); % Neutrophils 71.9 % (42.2-75.2); Absolute Immature Granulocytes 0.2 10^3/uL (0-0.05); Absolute Lymphocytes 2.2 10^3/uL (1.2-3.4); Absolute Monocytes 1.1 10^3/uL (0.1-0.6); Absolute Neutrophils 9.1 10^3/uL (1.4-6.5); Hematocrit 21.3 % (37.0-47.0); Mean Corp Hgb Conc. 32.4 g/dL (33.0-37.0); Mean Corpuscular Hgb 29.5 pg (27.0-31.0); Mean Platelet Volume 10.7 fL (7.4-10.4); Nucleated Red Blood Cells % 0.2 %; Platelet Count 411 10^3/uL (130-400); Red Blood Cell Count 2.34 10^6/uL (4.20-5.40); Red Cell Dist. Width 22.1 % (11.5-14.5); White Blood Cell Count 12.7 10^3/uL (4.8-10.8)
--- NOTE | 2024-05-31 13:13 | CM ---
quality manager continues to follow with patient progress notes and patient was admitted from [facility] in [place], patient is for possible surgery after bowel rest, patient is NPO on TPN. quality manager spoke on several occasions with [facility] and
they have been able to find patient another room at [facility]. Multiple referrals sent for alternative option for patient however patient is currently on Suboxone and this limits options for patient.
Plan; To follow with patient progress possible return to [facility], home with father or alterative skilled placement.
[2024-05-31 13:27] LABS: ALT (SGPT) 35 U/L (0-35); AST (SGOT) 45 U/L (14-36); Albumin 1.8 g/dl (3.5-5.0); Alkaline Phosphatase 197 U/L (38-126); Blood Urea Nitrogen 14 mg/dl (7-17); Calcium 7.1 mg/dl (8.4-10.2); Carbon Dioxide 25 mmol/L (22-30); Chloride 101 mmol/L (98-107); Estimated Creatinine Clearance 119 ml/min; Glucose 108 mg/dl (70-99); Potassium 4.1 mmol/L (3.5-5.1); Sodium 130 mmol/L (135-145); Total Bilirubin 0.5 mg/dl (0.2-1.3); Total Protein 4.8 g/dl (6.3-8.2); eGFR > 60.00
[2024-05-31 14:43] LABS: Ammonia < 9 umol/L (9-30)
[2024-05-31 15:26] VITALS: BP 118/81
--- NOTE | 2024-05-31 15:28 | W.PN.HOSP.TC ---
Today's Communication/Plan
-
TPN.
NPO.
Minimize narcotics, patient oversedated today.
IV antibiotics/Zosyn covering aspiration.
Assessment / Plan
Assessment / Plan
Impression:
Patient is a 34y F with PMH significant for IVDA, untreated Hep C and cirrhosis with recent complicated hospital stay for Crohn's / SBO who presents to ED complaining of SOB, abdominal pain and distention.
Recurrent at least partial SBO suspected secondary to inflammatory process in patient with Crohn's disease
Aspiration pneumonia
Crohn's disease.
Pancolitis
C. difficile antigen positive toxin negative recently treated with oral vancomycin.
Cirrhosis secondary to untreated hepatitis C.
Hepatic encephalopathy
Recurrent ascites.
Anasarca
Severe protein calorie malnutrition
Hypovolemic hyponatremia
Anemia of chronic disease
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
Polysubstance abuse, former IVDA on Suboxone.
Anxiety disorder
Multiple skin breakdowns
Plan:
Recurrent SBO likely inflammatory in nature
CT scan with oral contrast in the ED consistent with increased from prior dilated bowel loops.
Not clear if this is Crohn's/inflammatory bowel disease exacerbation with inflammatory stricture versus prior ischemic bowel insult.
Patient has not established diagnosis of IBD as per records
05/16 with worsening abdominal pain and distention.
Continue n.p.o.
Noted rising WBC while on prednisone
CT scan of the abdomen pelvis 05/17 consistent with small bowel obstruction? Inflammatory secondary to Crohn's disease
Patient removed NG tube on 05/31 and declined replacement.
Maintain n.p.o.
TPN
Transitioned to IV corticosteroids as per GI and continue slow taper to avoid hypoadrenal state.
Hold oral medications
Recently treated for pancolitis
Stool cultures negative to date.
C. difficile toxin negative antigen positive completed course of vancomycin while on systemic antibiotics for pancolitis.
Aspiration pneumonia
Noted with rising WBC on 05/29 - 05/30
Follow-up imaging with obstruction series consistent with right greater than left bilateral infiltrate.
Started Zosyn
Anemia of chronic disease
Slowly trending down hemoglobin to sevens with no evidence of acute blood loss
Recent iron studies consistent with increased ferritin, although sufficient iron stores
Monitor closely
Transfuse to keep above 8
Hypotension
Hypovolemic hyponatremia
Patient with anasarca and third spacing.
Hold Lasix and spironolactone
Follow BMP.
Urinary tract infection
Urine culture with E. coli sensitive to Zosyn
Completed course of antibiotics from 05/15 - 05/21
Cirrhosis secondary to untreated hepatitis C.
Ascites status post paracentesis 05/04 1 L with no evidence of SBP.
Monitor for reaccumulation.
Hepatic encephalopathy. Mental status stable. Ammonia level 17 on presentation
With improvement of bowel function, resume lactulose
Right first great toe osteomyelitis status post partial amputation.
Completed course of antibiotics
Wound is dehiscent but not infected
Status post right first great toe partial amputation and revision on 05/16.
Multiple skin breakdowns.
Wound care consult
Severe Protein Calorie Malnutrition
Hypomagnesemia
- Severe malnutrition secondary to IVDA, cirrhosis, etc.
- Nutrition evaluation / support.
- Was on TPN for a time during prior hospital stay.
- Monitor and replace electrolytes as needed.
Leg cramps
- Start Flexeril 5 mg 3 times daily 05/29
Anxiety Disorder
Polysubstance Use Disorder
Chronic pain
Patient declined Suboxone
Attempt to wean off hydromorphone.
Increase Neurontin to 300 mg every 8 hours
DVT Prophylaxis: Lovenox
Code Status: Full
Anticipated Discharge: > 48 hours
Subjective/Interval History
-
Date of Service: May 31, 2024
Objective Data
-
Labs:
Laboratory Results
05/31/24
12:47
WBC 12.7 H
Hgb 7.0 L
Hct 21.3 L
Plt Count 411 H
Sodium 130 L
Potassium 4.1
Chloride 101
Carbon Dioxide 25
BUN 14
Creatinine 0.2 L
Glucose 108 H
Calcium 7.1 L
Total Bilirubin 0.5
AST 45 H
ALT 35
Alkaline Phosphatase 197 H
Vital Signs:
Vital Signs
Temp Pulse Resp BP Pulse Ox
98.6 F 119 21 118/81 98
05/31/24 15:26 05/31/24 15:26 05/31/24 15:26 05/31/24 15:26 05/31/24 15:26
I&O
05/30/24 05/31/24 06/01/24
06:59 06:59 06:59
Intake Total 570 / 570 670 / 670
Balance 570 / 570 670 / 670
Physical Exam
-
General: No Apparent Distress
HEENT: Normocephalic, Atraumatic and Moist Mucous Membranes
Respiratory: Clear to Auscultation
Cardiac: Regular Rhythm and S1/S2; Negative Murmur, Rub or Gallop
GI: Distended; Negative Tender or Organomegaly
Rectal: Deferred by Provider
Musculoskeletal: No Clubbing, No Cyanosis, No Edema and Other (Right arm amputation)
Skin: Negative Rash
Neuro: Awake, Alert, Oriented, AO x 3 and Nonfocal/Grossly Intact
[2024-05-31 18:55] LABS: Glucose - Point of Care 125 mg/dl (70-99)
[2024-05-31] MEDS: Parenteral Nutrition, Central 1370 IV (20:33)
[2024-05-31] MEDS: MELATONIN 5 MG PO (21:51)
[2024-05-31] MEDS: REMERON 15 MG PO (21:51)
[2024-05-31 23:30] VITALS: BP 115/69
[2024-06-01] MEDS: DILAUDID 2 MG IV ×6 (00:16→20:07)
[2024-06-01] MEDS: TYLENOL 650 MG PO ×2 (00:55→16:16)
[2024-06-01 01:01] LABS: Glucose - Point of Care 109 mg/dl (70-99)
[2024-06-01] MEDS: ZOSYN 50 IV ×4 (03:43→21:12)
[2024-06-01 04:19] LABS: % Basophils 0.3 % (0-2); % Eosinophils 0.1 % (0-6); % Lymphocytes 18.8 % (20.5-51.1); % Monocytes 10.5 % (1.7-9.3); % Neutrophils 68.3 % (42.2-75.2); Absolute Immature Granulocytes 0.2 10^3/uL (0-0.05); Absolute Lymphocytes 2.1 10^3/uL (1.2-3.4); Absolute Monocytes 1.2 10^3/uL (0.1-0.6); Absolute Neutrophils 7.5 10^3/uL (1.4-6.5); Hematocrit 22.2 % (37.0-47.0); Hemoglobin 7.1 g/dL (12.0-16.0); Mean Corpuscular Hgb 29.6 pg (27.0-31.0); Mean Corpuscular Volume 92.5 fL (81.0-99.0); Nucleated Red Blood Cells % 0.3 %; Platelet Count 447 10^3/uL (130-400); Red Cell Dist. Width 21.5 % (11.5-14.5)
[2024-06-01 04:38] LABS: ALT (SGPT) 34 U/L (0-35); AST (SGOT) 44 U/L (14-36); Albumin 1.8 g/dl (3.5-5.0); Alkaline Phosphatase 208 U/L (38-126); Blood Urea Nitrogen 15 mg/dl (7-17); Calcium 7.3 mg/dl (8.4-10.2); Carbon Dioxide 26 mmol/L (22-30); Chloride 103 mmol/L (98-107); Estimated Creatinine Clearance 119 ml/min; Glucose 108 mg/dl (70-99); Magnesium 2.1 mg/dl (1.6-2.3); Potassium 3.7 mmol/L (3.5-5.1); Sodium 132 mmol/L (135-145); Total Bilirubin 0.4 mg/dl (0.2-1.3); Total Protein 4.9 g/dl (6.3-8.2); eGFR > 60.00
[2024-06-01 06:00] VITALS: BMI 22.1
[2024-06-01 06:24] LABS: Glucose - Point of Care 120 mg/dl (70-99)
[2024-06-01 07:00] VITALS: BP 106/72
--- NOTE | 2024-06-01 08:03 | W.PN.HOSP.TC ---
Today's Communication/Plan
-
Check COVID
Procalcitonin
Continue current care
Assessment / Plan
Assessment / Plan
Gen-somnolent but arousable, NAD
HEENT-NC, AT, anicteric, clear oral mm
Neck-supple
CV-reg, no M, +S1/S2
Lungs-clear B/L
Abd-soft, NT, ND
Ext-no edema
Musculoskeletal-no cyanosis, clubbing, bilateral foot drop
Skin-warm and dry
Neuro-bilateral lower extremity weakness
Psych-calm, cooperative
Impression:
Patient is a 34y F with PMH significant for IVDA, untreated Hep C and cirrhosis with recent complicated hospital stay for Crohn's / SBO who presents to ED complaining of SOB, abdominal pain and distention.
Recurrent at least partial SBO suspected secondary to inflammatory process in patient with Crohn's disease
Aspiration pneumonia
Crohn's disease.
Pancolitis
C. difficile antigen positive toxin negative recently treated with oral vancomycin.
Cirrhosis secondary to untreated hepatitis C.
Hepatic encephalopathy
Recurrent ascites.
Anasarca
Severe protein calorie malnutrition
Hypovolemic hyponatremia
Anemia of chronic disease
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
Polysubstance abuse, former IVDA on Suboxone.
Anxiety disorder
Multiple skin breakdowns
Chronic bilateral lower extremity weakness, bedbound status
Plan:
Recurrent SBO likely inflammatory in nature
CT scan with oral contrast in the ED consistent with increased from prior dilated bowel loops.
Not clear if this is Crohn's/inflammatory bowel disease exacerbation with inflammatory stricture versus prior ischemic bowel insult.
Patient has not established diagnosis of IBD as per records
05/16 with worsening abdominal pain and distention.
Continue n.p.o.
Noted rising WBC while on prednisone
CT scan of the abdomen pelvis 12/10 consistent with small bowel obstruction? Inflammatory secondary to Crohn's disease
Patient removed NG tube on 05/31 and declined replacement.
Maintain n.p.o.
TPN
Transitioned to IV corticosteroids as per GI and continue slow taper to avoid hypoadrenal state.
Hold oral medications
Recently treated for pancolitis
Stool cultures negative to date.
C. difficile toxin negative antigen positive completed course of vancomycin while on systemic antibiotics for pancolitis.
Aspiration pneumonia
Noted with rising WBC on 05/29 - 05/30, WBCs trending down. Tmax 100.4 �F last night. Check procalcitonin. Check COVID.
Follow-up imaging with obstruction series consistent with right greater than left bilateral infiltrate.
Started Zosyn
Anemia of chronic disease
Slowly trending down hemoglobin to sevens with no evidence of acute blood loss
Recent iron studies consistent with increased ferritin, although sufficient iron stores
Monitor closely
Transfuse to keep above 8
Hypotension
Hypovolemic hyponatremia
Patient with anasarca and third spacing.
Hold Lasix and spironolactone
Follow BMP.
Urinary tract infection
Urine culture with E. coli sensitive to Zosyn
Completed course of antibiotics from 05/15 - 05/21
Cirrhosis secondary to untreated hepatitis C.
Ascites status post paracentesis 05/04 1 L with no evidence of SBP.
Monitor for reaccumulation.
Hepatic encephalopathy. Mental status stable. Ammonia level 17 on presentation
With improvement of bowel function, resume lactulose
Right first great toe osteomyelitis status post partial amputation.
Completed course of antibiotics
Wound is dehiscent but not infected
Status post right first great toe partial amputation and revision on 05/16.
Multiple skin breakdowns.
Wound care consult
Severe Protein Calorie Malnutrition
Hypomagnesemia
- Severe malnutrition secondary to IVDA, cirrhosis, etc.
- Nutrition evaluation / support.
- Was on TPN for a time during prior hospital stay.
- Monitor and replace electrolytes as needed.
Leg cramps
- Start Flexeril 5 mg 3 times daily 05/29
Anxiety Disorder
Polysubstance Use Disorder
Chronic pain
Patient declined Suboxone
Attempt to wean off hydromorphone.
Increase Neurontin to 300 mg every 8 hours
DVT Prophylaxis: Lovenox
Code Status: Full
Anticipated Discharge: > 48 hours
Subjective/Interval History
-
Date of Service: June 01, 2024
Patient seen and examined. Denies nausea. Complaining of bilateral lower extremity pain.
Objective Data
-
Labs:
Laboratory Results
06/01/24
03:41
WBC 11.0 H
Hgb 7.1 L
Hct 22.2 L
Plt Count 447 H
Sodium 132 L
Potassium 3.7
Chloride 103
Carbon Dioxide 26
BUN 15
Creatinine 0.2 L
Glucose 108 H
Calcium 7.3 L
Total Bilirubin 0.4
AST 44 H
ALT 34
Alkaline Phosphatase 208 H
Vital Signs:
Vital Signs
Temp Pulse Resp BP Pulse Ox
99.1 F 117 18 115/69 92
06/01/24 02:00 05/31/24 23:30 05/31/24 23:30 05/31/24 23:30 05/31/24 23:30
I&O
05/31/24 06/01/24 06/02/24
06:59 06:59 06:59
Intake Total 670 / 670 100 / 100
Balance 670 / 670 100 / 100
Review of Systems
-
History Source: Patient
All other systems: Reviewed and negative
[2024-06-01] MEDS: FLEXERIL 10 MG PO ×3 (08:16→21:11)
[2024-06-01] MEDS: NSS (PRESERVATIVE FREE) 10 ML IV (08:17)
[2024-06-01] MEDS: VISBIOME 1 CAP PO (08:17)
[2024-06-01] MEDS: PROTONIX IV 40 MG IV (08:17)
[2024-06-01] MEDS: LIDOCAINE 4% PATCH TOPICAL (08:17)
[2024-06-01] MEDS: HYDROPHOR 1 APPLIC TOPICAL (08:17)
[2024-06-01 09:14] LABS: COVID-19 Antigen Negative (Negative)
[2024-06-01 09:34] LABS: NT-proBNP 538 pg/ml
[2024-06-01 09:50] LABS: Procalcitonin 0.51 ng/ml (0.0-0.25)
--- NOTE | 2024-06-01 11:25 | W.PN.GS2 ---
Today's Communication / Plan
-
Cont current mgmt
Assessment / Plan
-
Assessment: 34 yo female with h/o IVDA presenting with recurrent obstructive symptoms secondary to stricture of unclear etiology Crohns vs ischemic. ?history of Crohn's for which she has been on steroids without much benefit as well as recent
ischemic event in October during a drug OD which is when her GI symptoms began. Recently treated for pancolitis, C. difficile toxin negative antigen positive completed course of vancomycin.
AFVSS
Exacerbation of obstructive symptoms with PO liquid challenge
Prealbumin is declining -
05/17 - 7
05/25 - 11.7
05/31 - 5.2
Transferrin ordered today as well
Nutrition engaged earlier in the week and maximized her TPN
Plan:
--Continue NPO
--Continue TPN to ensure full daily nutritional intake, orders placed to renew
--plan not to attempt aggressive dietary advancement given chronic partial small bowel obstructive symptoms that have reoccurred numerous times recently
--Trend nutritional markers, cirrhosis scores
--Continue steroid taper
Tentative plan for delayed operative intervention following steroid wean and improvement in her nutrition/liver disease status
Subjective Data
-
Date of Service: June 01, 2024
No new complaints
Objective Data
-
Intake and Output
05/31/24 06/01/24 06/02/24
06:59 06:59 06:59
Intake Total 670 / 670 100 / 100
Balance 670 / 670 100 / 100
Intake:
Oral fluids 0 / 0 0 / 0
IV piggybacks 100 / 100 100 / 100
TPN/PPN 570 / 570
Other:
How many times incontinent 3
MODERATE amount urine
How many times incontinent 2 1
SATURATED amount urine
Vital Signs
Temp Pulse Resp BP Pulse Ox
99.2 F 109 18 106/72 90
06/01/24 07:00 06/01/24 07:00 06/01/24 07:00 06/01/24 07:00 06/01/24 08:30
Lab Results
06/01/24 03:41
06/01/24 03:41
Calcium 7.3 mg/dl (8.4-10.2) L 06/01/24 03:41
Phosphorus 3.8 mg/dl (2.5-4.5) 05/30/24 04:39
Magnesium 2.1 mg/dl (1.6-2.3) 06/01/24 03:41
Total Bilirubin 0.4 mg/dl (0.2-1.3) 06/01/24 03:41
Direct Bilirubin 0.3 mg/dl (0.0-0.4) 05/11/24 04:38
AST 44 U/L (14-36) H 06/01/24 03:41
ALT 34 U/L (0-35) 06/01/24 03:41
Alkaline Phosphatase 208 U/L (38-126) H 06/01/24 03:41
Total Protein 4.9 g/dl (6.3-8.2) L 06/01/24 03:41
Albumin 1.8 g/dl (3.5-5.0) L 06/01/24 03:41
Physical Exam
-
Gen: somnolent but easily rousable
Abd: soft, distended, nt
[2024-06-01 12:00] LABS: Glucose - Point of Care 126 mg/dl (70-99)
[2024-06-01 15:00] VITALS: BP 111/74
[2024-06-01] MEDS: LOVENOX 40 MG SC (17:18)
[2024-06-01 18:17] LABS: Glucose - Point of Care 117 mg/dl (70-99)
[2024-06-01] MEDS: Parenteral Nutrition, Central 1360 IV (21:06)
[2024-06-01] MEDS: MELATONIN 5 MG PO (21:11)
[2024-06-01] MEDS: REMERON 15 MG PO (21:12)
[2024-06-01 23:30] VITALS: BP 117/84
[2024-06-02] VITALS (12 sets, daily range): BP systolic 106–133; BP diastolic 70–89; BMI 22.1; BMI 22.0
[2024-06-02] MEDS: DILAUDID 2 MG IV ×6 (00:12→20:53)
[2024-06-02 00:16] LABS: Glucose - Point of Care 110 mg/dl (70-99)
[2024-06-02] MEDS: ZOSYN 50 IV ×4 (04:26→21:58)
[2024-06-02 06:14] LABS: Glucose - Point of Care 119 mg/dl (70-99)
--- NOTE | 2024-06-02 07:25 | VATNOTE ---
Reported blue lumen of TLC occluded, able to flush blue lumen with + blood return.
[2024-06-02] MEDS: ROXICODONE 10 MG PO (07:51)
[2024-06-02] MEDS: NSS (PRESERVATIVE FREE) 10 ML IV (07:51)
[2024-06-02] MEDS: FLEXERIL 10 MG PO ×3 (07:52→21:58)
[2024-06-02] MEDS: PROTONIX IV 40 MG IV (07:52)
[2024-06-02] MEDS: VISBIOME 1 CAP PO (07:52)
[2024-06-02] MEDS: HYDROPHOR 1 APPLIC TOPICAL (07:52)
[2024-06-02] MEDS: LIDOCAINE 4% PATCH TOPICAL (07:52)
--- NOTE | 2024-06-02 08:00 | PTCARENOTE ---
Pt c/o increased pain in both lower legs. Pt tachypneic and POX 82% on RA. O2 applied at 4L and POX now 93%. Dr. Brewster made aware of increased pain and breathing. Oxycodone 10mg po ordered and given. Will continue to monitor.
--- NOTE | 2024-06-02 10:10 | W.PN.UPDATE ---
Update Note
Progress Note Update
Pt seen and evaluated at bedside. Denies abd pain, denies BM/flatus, denies n/v. Belly soft, distended, nt. TPN renewed. Plan remains for nutritional optimization prior to possible surgical intervention. Prealbumin however is declining despite TPN.
--- NOTE | 2024-06-02 10:13 | W.PN.HOSP.TC ---
Addendum entered and electronically signed by Jam Brewster DO 06/02/24 13:32:
I spoke with the GI service. This patient does not have a confirmed diagnosis of inflammatory bowel disease. Has never had a biopsy. Differential diagnosis for her small bowel obstruction includes ischemic stricture versus IBD versus other.
[facility] has accepted her but there is no beds available and it may take at least another week to get a bed. Discussed with [place] hospitalist service as well as surgical service.
Addendum entered and electronically signed by Jam Brewster DO 06/02/24 11:48:
Chest x-ray shows bilateral infiltrates consistent with either pneumonia or pulmonary edema.
Continue antibiotics, give a dose of IV Lasix now.
Transferred to IMU.
Hemoglobin down to 6.6, plan for transfusion today.
Updated nursing and patient's mother on the phone. Mother requesting transfer to [facility]. I did call the transfer center and awaiting for them to give me a call back.
Original Note:
Today's Communication/Plan
-
Await labs
Chest x-ray
Continue antibiotics
Assessment / Plan
Assessment / Plan
Gen-somnolent but arousable, NAD
HEENT-NC, AT, anicteric, clear oral mm
Neck-supple
CV-reg, no M, +S1/S2, tachy
Lungs-clear B/L
Abd-soft, NT, ND
Ext-no edema
Musculoskeletal-no cyanosis, clubbing, bilateral foot drop
Skin-warm and dry
Neuro-bilateral lower extremity weakness
Psych-calm, cooperative
Recurrent SBO - suspected secondary to inflammatory process in patient with Crohn's disease. High risk for operative intervention per surgical service given low prealbumin level. Prealbumin remains low despite ongoing TPN. Last prealbumin was
5.2. Discussed with Dr. Godwin.
Acute hypoxic respiratory insufficiency -possibly due to aspiration pneumonia versus pulmonary edema versus other. Now requiring 4 L nasal cannula of oxygen. Sinus tachycardia noted. Low-grade fever noted evening of 05/31. IV Zosyn started 05/30
evening. Leukocytosis noted, trending down. Labs pending for today.
Body weight remains stable at 59 kg. BNP 538. Procalcitonin 0.51.
Recheck chest x-ray today.
Intractable pain syndrome -complaining of severe bilateral lower extremity pain and muscle cramps which is chronic. Getting IV Dilaudid every 4 hours. States oxycodone 10 mg is not helping. Also on Flexeril 10 mg 3 times daily.
Crohn's disease.
Pancolitis
C. difficile antigen positive toxin negative recently treated with oral vancomycin.
Cirrhosis secondary to untreated hepatitis C.
Hepatic encephalopathy
Recurrent ascites.
Anasarca
Severe protein/calorie malnutrition -continue TPN.
Hypovolemic hyponatremia -sodium 132 yesterday.
Anemia of chronic disease -transfuse 1 unit of blood so far this admission. Hemoglobin 7.1 yesterday, pending for today.
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
Polysubstance abuse, former IVDA on Suboxone.
Anxiety disorder
Multiple skin breakdowns
Chronic bilateral lower extremity weakness, bedbound status
History of IVDA
Full code
Anticipated Discharge: > 48 hours
Subjective/Interval History
-
Date of Service: June 02, 2024
Patient seen and examined. Complaining of lower extremity pain.
Objective Data
-
Labs:
Laboratory Results
06/02/24
10:13
WBC Pending
Hgb Pending
Hct Pending
Plt Count Pending
Vital Signs:
Vital Signs
Temp Pulse Resp BP Pulse Ox
98.8 F 132 22 127/84 94
06/02/24 07:55 06/02/24 07:55 06/02/24 07:55 06/02/24 07:55 06/02/24 07:55
I&O
06/01/24 06/02/24 06/03/24
06:59 06:59 06:59
Intake Total 100 / 100 1024 / 1024 784 / 784
Balance 100 / 100 1024 / 1024 784 / 784
Review of Systems
-
History Source: Patient
All other systems: Reviewed and negative
[2024-06-02 11:00] LABS: % Basophils 0.3 % (0-2); % Eosinophils 0.1 % (0-6); % Immature Granulocytes 1.6 % (0-0.5); % Lymphocytes 14.1 % (20.5-51.1); % Monocytes 10.2 % (1.7-9.3); % Neutrophils 73.7 % (42.2-75.2); Absolute Basophils 0.1 10^3/uL (0-0.2); Absolute Immature Granulocytes 0.3 10^3/uL (0-0.05); Absolute Lymphocytes 2.2 10^3/uL (1.2-3.4); Absolute Monocytes 1.6 10^3/uL (0.1-0.6); Absolute Neutrophils 11.4 10^3/uL (1.4-6.5); Hematocrit 21.1 % (37.0-47.0); Hemoglobin 6.6 g/dL (12.0-16.0); Mean Corp Hgb Conc. 31.3 g/dL (33.0-37.0); Mean Corpuscular Hgb 28.7 pg (27.0-31.0); Mean Corpuscular Volume 91.7 fL (81.0-99.0); Mean Platelet Volume 10.8 fL (7.4-10.4); Nucleated Red Blood Cells % 0.3 %; Platelet Count 513 10^3/uL (130-400); Red Cell Dist. Width 21.6 % (11.5-14.5); White Blood Cell Count 15.4 10^3/uL (4.8-10.8)
--- NOTE | 2024-06-02 11:21 | PTCARENOTE ---
Report called to [facility] on [facility]U. Pt to be transferred there.
[2024-06-02] MEDS: LASIX 40 MG IV ×2 (11:38→16:57)
[2024-06-02] MEDS: NEURONTIN 400 MG PO ×3 (11:39→21:58)
--- NOTE | 2024-06-02 11:50 | CM ---
Chart reviewed. Pt to be transferred to IMU
Call from [facility], wanting to share contact information for pt to receive case management when she d/c from hospital. ([phone])
Pt cont abx
Pt's mother wanting her to transfer to [facility]
--- NOTE | 2024-06-02 13:59 | WOUNDNOTE ---
R PARTIAL GREAT TOE AMP
--- NOTE | 2024-06-02 14:05 | WOUNDNOTE ---
[facility] RN note: Patient's L sacral buttocks stage 2 pressure injury currently healed. R ischial stage 2 pressure injury small, pink about the same. R partial great toe incision with sutures intact without drainage. Dressing changed on sacrum. Dressing
applied to R partial great toe amp site and R ischium. Patient is on a [facility] air bed. She refuses to stay positioned on her semi side lying position. She refuses heel elevation including using bariatric air chair cushion instead of pillow.
+Bilateral foot drop contracture (not new). She declined knee high Tubigrip application. Skin on heels intact. L heel blanchable red. L medial proximal foot blister dry/absorbing. Dressing maintained on L foot which was changed during shiftman.
Instructed patient importance of heel elevation and turning to prevent pressure injury. Encouraged patient to lift heels off bed frequently. Protective silicone border foam maintained on L heel. Protective silicone border foam applied to R heel.
t/c SPD and ordered a bariatric air chair cushion. Discussed with RN Jennifer and Maritza who will try to cushion patient's heels with bariatric air chair cushion at the foot of mattress under fitted sheet. Patient on TPN. Patient high risk for pressure
injury despite being on an air mattress and pressure injury prevention instruction d/t patient's frequent refusal for off loading measures.
--- NOTE | 2024-06-02 16:00 | PTCARENOTE ---
ABG and NGT ordered. Pt was refusing both, aware and came to bedside to talk with patient. Patient refusing again but then after left the room, pt agreed to waiting until after her next pain medication administration and then
both the ABG and NGT can be attempted. made aware.
[2024-06-02] MEDS: LOVENOX 30 MG SC (16:56)
--- NOTE | 2024-06-02 17:01 | CM ---
Buy Back received from [facility] [employer]([phone]). Form signed by Hospitalist, patient and Nursing Jet Piercer Operator and faxed back to [facility] at Fax number [phone]. Copy placed on chart. Update to .
[2024-06-02 17:21] LABS: B.E. 4.5 mmol/L; HCO3 28.3 mmol/L (21-28); O2 Saturation % 95.2 % (94-98); PCO2 38 mmHg (32-35); PO2 68 mmHg (83-108); pH 7.48 (7.35-7.45)
[2024-06-02] MEDS: TYLENOL 650 MG PO (17:24)
--- NOTE | 2024-06-02 18:03 | PTCARENOTE ---
Patient's body temperature feeling warm to the touch. Pt's oral temp normal. Checked rectally and was 101.7. Tylenol given, see MAR. made aware.
[2024-06-02 18:15] LABS: Glucose - Point of Care 104 mg/dl (70-99)
--- NOTE | 2024-06-02 18:17 | PTCARENOTE ---
advised can delay NGT insertion until her breathing improves.
[2024-06-02] MEDS: Parenteral Nutrition, Central 1360 IV (21:49)
[2024-06-02] MEDS: REMERON 15 MG PO (21:58)
[2024-06-02] MEDS: MELATONIN 5 MG PO (21:58)
[2024-06-03] VITALS (22 sets, daily range): BP systolic 83–145; BP diastolic 50–108; BMI 21.3
[2024-06-03 00:18] LABS: Glucose - Point of Care 107 mg/dl (70-99)
[2024-06-03 00:49] LABS: Transferrin 102 mg/dL (200-360)
[2024-06-03] MEDS: DILAUDID 2 MG IV (01:20)
[2024-06-03] MEDS: LASIX 20 MG IV (01:33)
[2024-06-03 01:49] LABS: B.E. 2.6 mmol/L; HCO3 27.2 mmol/L (21-28); O2 Saturation % 90.2 % (94-98); PCO2 41 mmHg (32-35); pH 7.43 (7.35-7.45)
[2024-06-03 01:54] LABS: PO2 59 mmHg (83-108)
[2024-06-03 02:01] LABS: Hematocrit 26.5 % (37.0-47.0); Hemoglobin 8.5 g/dL (12.0-16.0); Mean Corp Hgb Conc. 32.1 g/dL (33.0-37.0); Mean Corpuscular Hgb 29.6 pg (27.0-31.0); Mean Corpuscular Volume 92.3 fL (81.0-99.0); Mean Platelet Volume 10.8 fL (7.4-10.4); Platelet Count 514 10^3/uL (130-400); Red Blood Cell Count 2.87 10^6/uL (4.20-5.40); White Blood Cell Count 19.6 10^3/uL (4.8-10.8)
[2024-06-03 02:04] LABS: COVID-19 Antigen Negative (Negative)
[2024-06-03 02:14] LABS: Blood Urea Nitrogen 20 mg/dl (7-17); Calcium 7.8 mg/dl (8.4-10.2); Carbon Dioxide 32 mmol/L (22-30); Chloride 102 mmol/L (98-107); Estimated Creatinine Clearance 119 ml/min; Glucose 101 mg/dl (70-99); Potassium 3.1 mmol/L (3.5-5.1); Sodium 136 mmol/L (135-145); eGFR > 60.00
[2024-06-03 02:20] LABS: Magnesium 1.6 mg/dl (1.6-2.3)
[2024-06-03 02:24] LABS: Lactic Acid 1.1 mmol/L (0.7-2.0)
--- NOTE | 2024-06-03 02:29 | PTCARENOTE ---
Pt noted to be consistently tachypneic in the 40's to 50's. Covering provider notified. Pt provided 20mg Lasix as ordered. CXR and ABG drawn PO2 59. Pt was maxed on high flow with NRB in place. Labs drawn. Provider notified of erythema and slight
edema to R upper extremity. Another 700ml dark yellow urine noted from purewick since administration of Lasix. Pt tx to ICU for advanced care in bed with highflow.
--- NOTE | 2024-06-03 02:48 | W.PN.ANESINT ---
Anesthesia Intubation Note
- Intubation Note
Intubation Note:
Diagnosis: acute respiratory failure
Blade: mac 4
Tube Size: 8.0
Depth: 22
Side Taped: right
Drugs Used: propofol 100mg, succ 80mg
Grade View: 1
EtCO2 Present: yes
Atraumatic: yes
Attempts: 1
Insertion Start and Stop Time:
SaO2 Pre: 95
SaO2 Post: 99
Glidescope Used: yes
Other Airway Adjustments:
Pre-Oxygenated: yes
Portable Chest X-Ray: p
RSI:
Suctioned:
Bilateral Breath Sounds Confirmed: yes
Vent Settings:
Settings per __x_Attending Physician
[2024-06-03 02:50] LABS: NT-proBNP 677 pg/ml
[2024-06-03] MEDS: DIPRIVAN 100 IV ×5 (02:55→20:34)
[2024-06-03 03:04] LABS: D-Dimer 4.74 ug/mlFEU (0.00-0.50)
--- NOTE | 2024-06-03 03:06 | W.PN.UPDATE ---
Update Note
Progress Note Update
0230 Overnight transfer to ICU due to Acute hypoxic respiratory Failure. High concern for aspiration pneumonia. Patient received multiple doses on lasix (100mg total) throughout the day with no improvement. Chest xray progressively worse, maxed on
hiflow breathing 35 to 40, ST 130 to 140bpm.�Decision made intubated�due to progressing worse clinical course (Uneventful intubation). Mother and father were both updated. Father is POA.
[2024-06-03] MEDS: SUBLIMAZE 50 MCG IV ×9 (03:11→18:57)
--- NOTE | 2024-06-03 03:12 | W.PN.UPDATE ---
Update Note
Progress Note Update
RN notified DOOR MANAGER, patient 02Sat 83%, on HFNC and NRM. Patient seen and evaluated. Somnolent, arousable. Lungs with diminished inspiratory and expiratory breathing with crackles, Abdomen distended, NT, Patient denies any abdomen pain, nausea, chest
pain or respiratory distress, though VS are 108/84, 134, 60's-80's HFNC and NRM, RR 44, afebrile. IV lasix 20mg, ABG, labs, chest XRay, Right arm mild redness and swelling noted, D-dimer and US Right arm to r/o DVT.
ABG results noted, discussed with RT and ICU DOOR MANAGER Thaddeus. Plan is to transfer patient to ICU.
Mother and Father updated. Dr. Estrada made aware.
[2024-06-03] MEDS: KCL 160 MEQ IV (03:13)
[2024-06-03] MEDS: SUBLIMAZE 100 IV ×3 (03:14→21:49)
[2024-06-03] MEDS: ZOSYN 50 IV ×4 (03:23→21:54)
[2024-06-03 03:34] LABS: % Basophils 0.3 % (0-2); % Eosinophils 0.3 % (0-6); % Immature Granulocytes 2.8 % (0-0.5); % Lymphocytes 9.1 % (20.5-51.1); % Monocytes 5.3 % (1.7-9.3); % Neutrophils 82.2 % (42.2-75.2); Absolute Basophils 0.1 10^3/uL (0-0.2); Absolute Eosinophils 0.1 10^3/uL (0-0.7); Absolute Immature Granulocytes 0.6 10^3/uL (0-0.05); Absolute Lymphocytes 1.9 10^3/uL (1.2-3.4); Absolute Monocytes 1.1 10^3/uL (0.1-0.6); Absolute Neutrophils 17.1 10^3/uL (1.4-6.5); Hematocrit 24.5 % (37.0-47.0); Hemoglobin 8.1 g/dL (12.0-16.0); Mean Corp Hgb Conc. 33.1 g/dL (33.0-37.0); Mean Corpuscular Hgb 29.7 pg (27.0-31.0); Mean Corpuscular Volume 89.7 fL (81.0-99.0); Mean Platelet Volume 11.2 fL (7.4-10.4); Nucleated Red Blood Cells % 0.5 %; Platelet Count 505 10^3/uL (130-400); Red Blood Cell Count 2.73 10^6/uL (4.20-5.40); Red Cell Dist. Width 19.9 % (11.5-14.5); White Blood Cell Count 20.8 10^3/uL (4.8-10.8)
--- NOTE | 2024-06-03 03:48 | PTCARENOTE ---
Received pt as a transfer from IMU RN, due to increased O2 demands. ABG drawn and sent. Decision to intubate, intubation provided #8 22 @ lip, chest xray provided. NG placed in right nare. PARTS DEPARTMENT MANAGER Thaddeus @ bedside and dad updated. Propofol and Fent gtt
infusing (see worklist). Alva placed for critical I&O. Left extremity restraint in place. Safe environment maintained. See worklist.
[2024-06-03 03:59] LABS: ALT (SGPT) 28 U/L (0-35); AST (SGOT) 49 U/L (14-36); Albumin 1.9 g/dl (3.5-5.0); Alkaline Phosphatase 196 U/L (38-126); Blood Urea Nitrogen 19 mg/dl (7-17); Calcium 7.6 mg/dl (8.4-10.2); Carbon Dioxide 32 mmol/L (22-30); Chloride 101 mmol/L (98-107); Estimated Creatinine Clearance 119 ml/min; Glucose 104 mg/dl (70-99); Sodium 135 mmol/L (135-145); Total Bilirubin 0.9 mg/dl (0.2-1.3); Total Protein 5.4 g/dl (6.3-8.2); Triglycerides 165 mg/dl (10-149); eGFR > 60.00
[2024-06-03] MEDS: OFIRMEV 100 IV ×3 (04:08→22:39)
--- NOTE | 2024-06-03 04:26 | W.PN.UPDATE ---
Update Note
Progress Note Update
Procedure Note: Arterial Line�
� Left Wrist Arrow 20 (08/09)�
Diagnosis:��PNA
IV Line Comments: Uneventful Procedure�
Dav's test completed pre-procedure: Yes�
A-Line Comments: Sterile technique as per standard protocol, Ultrasound guided insertion�
Functioning A-line in situ: Yes�
A-line Insertion Start Time:��0415
A-line in at:��0420
[2024-06-03 05:04] LABS: B.E. 3.6 mmol/L; HCO3 27.7 mmol/L (21-28); Ionized Calcium 1.18 mMOL/L (1.15-1.33); O2 Saturation % 98.4 % (94-98); PCO2 39 mmHg (32-35); PO2 158 mmHg (83-108); Potassium 2.8 mMOL/L (3.5-5.1); Sodium 135 mMOL/L (136-145); pH 7.46 (7.35-7.45)
[2024-06-03] MEDS: MAGNESIUM SULFATE 102 GRAMS IV (06:01)
[2024-06-03] MEDS: KCL 50 IV ×2 (06:02→12:21)
--- NOTE | 2024-06-03 07:06 | PTCARENOTE ---
Walking rounds. Pt intubated/sedated with left U/E restrained, 4 side rails up. Propofol @ 50mcg/kg/hr, Fentanyl @ 100mcg/hr, TPN @ 57ml's/hr via left IJ TL CVC. #8 ETT secured 21cm centered upper lip. Tolerating AC 14/450/.80/+5. Pulse ox 99%. Left
radial arterial line transduced. Alva with fallon urine, small amounts. Aspiration precautions maintained. Right Nare eduardo sump secured 65cm to LIWS @60mmHg. Her father Sam is at the bedside. He was provided an update and informed of the plan
of care. He asked appropriate questions. Supportive care given, safe environment maintained.
[2024-06-03] MEDS: FLEXERIL PO (07:51)
[2024-06-03] MEDS: VISBIOME PO (07:51)
[2024-06-03] MEDS: NEURONTIN PO (07:51)
--- NOTE | 2024-06-03 08:03 | W.PN.HOSP.TC ---
Addendum entered and electronically signed by Jam Brewster DO 06/03/24 08:27:
Sepsis -unclear etiology but possibly due to aspiration pneumonia versus other causes. Fevers noted overnight with leukocytosis. Recheck blood cultures. Hypotension noted but suspect due to sedation after intubation and remains on propofol.
Check CVP and consider IV fluid bolus.
Original Note:
Today's Communication/Plan
-
Replete potassium
Chimney Mechanic consult
Check CVP
Assessment / Plan
Assessment / Plan
Gen-sedated, intubated
HEENT-NC, AT, anicteric, clear oral mm
Neck-supple
CV-reg, no M, +S1/S2, tachy
Lungs-clear B/L
Abd-soft, NT, ND
Ext-no edema
Musculoskeletal-no cyanosis, clubbing, bilateral foot drop
Skin-warm and dry
Recurrent SBO -unclear etiology of bowel obstruction. She does not have a confirmed diagnosis of inflammatory bowel disease. High risk for operative intervention per surgical service given low prealbumin level. Prealbumin remains low despite
ongoing TPN. Last prealbumin was 5.2. Discussed with Dr. Godwin. I am not sure prealbumin is reliable in the setting of her underlying cirrhosis, critical illness.
NG tube placed last night with minimal output according to nursing, mostly air.
Acute hypoxic respiratory failure -possibly due to aspiration pneumonia versus pulmonary edema versus ARDS due to aspiration. Intubated mail inserter 06/03 for respiratory failure.
Chest x-ray shows extensive bilateral alveolar and interstitial opacities consistent with ARDS versus multifocal pneumonia.
No significant improvement with 100 mg of Lasix in the past 24 hours. Remains on IV antibiotics. Chimney Mechanic consulted.
Intractable pain syndrome -complaining of severe bilateral lower extremity pain and muscle cramps which is chronic. Getting IV Dilaudid every 4 hours. States oxycodone 10 mg is not helping. Also on Flexeril 10 mg 3 times daily. Gabapentin
resumed.
Pancolitis
C. difficile antigen positive toxin negative recently treated with oral vancomycin.
Cirrhosis secondary to untreated hepatitis C.
Hepatic encephalopathy
Recurrent ascites.
Anasarca
Severe protein/calorie malnutrition -continue TPN.
Hypovolemic hyponatremia -resolved.
Hypokalemia -replete intravenously. Magnesium 1.6.
Acute on chronic anemia - hemoglobin 8.1 today, was 6.6 yesterday. Transfused 2 units of blood so far this admission. No obvious evidence of bleeding.
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
Polysubstance abuse, former IVDA on Suboxone.
Anxiety disorder
Multiple skin breakdowns
Chronic bilateral lower extremity weakness, bedbound status
History of IVDA
Full code
Father who is the ANAY is at the bedside today and he states that he does not want her transferred under any circumstances to [facility]. He understands that she could potentially deteriorate and in our hospital. In addition,
he states that Miriam also does not want to be transferred to [facility].
Anticipated Discharge: > 48 hours
Subjective/Interval History
-
Date of Service: June 03, 2024
Patient seen and examined. Events overnight noted. Currently sedated, intubated.
Objective Data
-
Labs:
Laboratory Results
06/03/24 06/03/24 06/03/24
01:42 01:43 03:18
WBC 19.6 H 20.8 H
Hgb 8.5 L D 8.1 L
Hct 26.5 L 24.5 L
Plt Count 514 H 505 H
HCO3 27.2
Sodium 136
Potassium 3.1 L
Chloride 102
Carbon Dioxide 32 H
BUN 20 H
Creatinine 0.2 L
Glucose 101 H
Calcium 7.8 L
Total Bilirubin
AST
ALT
Alkaline Phosphatase
06/03/24 06/03/24
03:19 04:56
WBC
Hgb
Hct
Plt Count
HCO3 27.7
Sodium 135
Potassium 3.0 L
Chloride 101
Carbon Dioxide 32 H
BUN 19 H
Creatinine 0.2 L
Glucose 104 H
Calcium 7.6 L
Total Bilirubin 0.9
AST 49 H
ALT 28
Alkaline Phosphatase 196 H
Vital Signs:
Vital Signs
Temp Pulse Resp BP Pulse Ox
99.4 F 111 18 83/54 93
06/03/24 07:44 06/03/24 06:30 06/03/24 06:30 06/03/24 06:30 06/03/24 07:57
I&O
06/02/24 06/03/24 06/04/24
06:59 06:59 06:59
Intake Total 1024 / 1024 3296.3 / 3296.3
Output Total 1236 / 1236
Balance 1024 / 1024 2060.3 / 2060.3
Review of Systems
-
Unable to obtain full review of systems at this time due to: Acuity and Patient Intubation
--- NOTE | 2024-06-03 08:10 | PTCARENOTE ---
Repositioned, she easily becomes agitated, tachypneic in the 40's-50, HR elevated 114-120, cough becomes persistent on the ventilator. Breath sounds posteriorly with fine crackles throughout. Expiratory wheeze upper airways posteriorly. +2-3
anasarca, right upper extremity +3-4 edema. Abdomen distended, soft. Gray sump irrigated as ordered, care of Gray sump per protocol followed. Green bilious secretions noted in tubing. Sacral silicone border dressing intact. Skin discolored dark
brown but remains intact. Right ischial dressing with small shadow of drainage on the dressing. Bilateral dressings to her feet intact. Heels elevated on pillows. Aspiration precautions maintained.
[2024-06-03] MEDS: PROTONIX IV 40 MG IV (08:39)
[2024-06-03] MEDS: NSS (PRESERVATIVE FREE) 10 ML IV (08:39)
[2024-06-03] MEDS: LIDOCAINE 4% PATCH 1 PATCH TOPICAL (08:40)
--- NOTE | 2024-06-03 09:21 | PTCARENOTE ---
Notified Dr. Brewster and Dr. Bernstein via TT regarding CVP=1-2. Orders obtained for fluid bolus and maintenance fluids. Pt's father updated regarding this.
[2024-06-03] MEDS: NSS 500 IV (10:22)
--- NOTE | 2024-06-03 10:45 | PTCARENOTE ---
Dr. Bernstein aware left IJ TL CVC inserted in the ED on admission 05/10/24.
[2024-06-03 11:28] LABS: Cortisol, Random 30.1 ug/dl
[2024-06-03 12:07] LABS: Glucose - Point of Care 108 mg/dl (70-99)
[2024-06-03] MEDS: LR 1000 IV ×2 (12:13→22:36)
[2024-06-03] MEDS: MAGNESIUM SULFATE 100 IV (12:13)
--- NOTE | 2024-06-03 13:16 | CON.INTV ---
Consultation
Consultation Request
Date/Time Consultation Requested: 06/03
Date/Time Consultation Performed: 06/03
Reason for Consultation: Critical care
Medical History
-
History of Present Illness:
History obtained from the chart, and father and stepmother at the bedside. No outside records available for review. Patient is a 34-year-old female with extremely complex medical history. She has a history of polysubstance abuse with IV drug
abuse, untreated hepatitis C/cirrhosis, multiple hospitalizations over the past 7 months since October 2023 for sepsis, right upper extremity infection requiring amputation, small bowel obstruction and abdominal pain. She was most recently discharged
from [facility] 05/04/2024 for partial small bowel obstruction. She returned to the ED on 05/10/2024 with complaints of abdominal pain, abdominal distention. Patient apparently has cirrhosis and underwent recent paracentesis. Upon arrival
at that time, temperature 100.1, pulse 123, breathing at 20, blood pressure 98/79, 100% saturation. Patient had difficult access therefore a left subclavian was placed in the ED. Workup revealed small bowel dilatation questionable small bowel
obstruction. Patient was seen by GI and surgery, where GI determined dilated small bowel has been chronic. Patient also chronically on prednisone 50 mg in the past per records although I cannot confirm this. Symptoms initially improved after NG
tube decompression. Patient was started on antibiotics for possible UTI 05/14. Patient also had right first great toe osteomyelitis requiring surgical intervention/Amputation revision. Patient was noted to have worsening abdominal distention post
surgery, made n.p.o., NG tube placed, TPN started. Repeat abdominal imaging 05/17 showed stable dilation with air-fluid levels, no pneumatosis, no free air. There was ascites and liver cirrhosis. Patient was deemed high surgical risk per records
but plan was for operative intervention in 2 to 4 weeks. Patient was noted to have a low hemoglobin of 6.6 requiring transfusion 05/20/2024. Patient with developed abdominal discomfort with attempts to advance diet. Patient was maintained n.p.o.
with TPN and given that symptoms recurred multiple times during attempts to advance diet. It was also noted that patient was receiving Dilaudid intermittently for pain and had periods of lethargy. Attempt was made to minimize narcotic therapy.
Hemoglobin went down to 6.6 again 06/02. Chest x-ray showed increased bilateral infiltrates and oxygen requirement increased. Patient was given Lasix dose and subsequently transferred to ICU where she was intubated for progressive hypoxic
respiratory failure 06/03/2024. We are asked to help from critical care standpoint
Of note, patient again received second unit of blood 06/02/2024
History also obtained from father and stepmother at bedside. Unfortunately no other records available for review.
Patient has history of polysubstance abuse, heroin, cocaine, fentanyl, opioids and had been in rehab multiple times in the past but was clean prior to October 2019 for hospital stay in [place].
Patient initially hospitalized October 2023 in [place] for 2 months, was on a ventilator. Apparently developed necrosis, which sounds like severe cellulitis of the right upper extremity secondary to IV drug use. Required amputation. According to
father, biological mother had taken her daughter after discharge and put her into a '[employer]Haul' and brought her to [facility]., Patient's mother lives in [place]. Patient had GI issues while at [facility], had identified a GI
physician who is good to be following her for her possible inflammatory bowel disease and cirrhosis. Patient was subsequently discharged to rehabilitation center, then readmitted to [facility] for bowel issues for a month, then discharged to a
fpc facility then readmitted to another hospital. She was sent home for a few days to live with her father as she was not excepted back to the fpc facility. However she then returned to [facility] 04/01/2024.
Father does not know many of the details, was only able to stay with her daughter while hospitalized in [place] for 3 days.
Father states that her daughter started using drugs probably around age of 15 and is used drugs of all kind
.
PMH: Hepatitis C, liver cirrhosis with ascites, polysubstance abuse with IV drug abuse, cellulitis/necrotizing fasciitis of right upper extremity requiring amputation while hospitalized for 2 months in [place] October 2023. Hospitalized at [facility] December 2023 for GI issues, hospitalized again in January at [facility] 2023 for GI issues and then again at [facility] March 2024 for GI issues, hepatic encephalopathy. Recurrent small bowel obstruction with suspected
inflammatory bowel disease, had endoscopy and colonoscopy and was supposedly told she had Crohn's although this cannot be confirmed. Bipolar disorder. History of drug overdose in the past with questionable hypoxic brain injury. Multiple
admissions for substance abuse, rehabilitation, drug use on Suboxone therapy. Chronic steroid therapy, partial right toe amputation with revision for osteomyelitis. Splenic infarcts per CT imaging. History of C. difficile colitis.
Past Medical History
Past Medical History: None (See above)
Past Surgical History: None (See above)
Social History
Tobacco: Smoker (Occasional cigarettes)
Alcohol: Occasional
Drug: IVDA (IV drug, cocaine, narcotics, marijuana, fentanyl)
Personal: Single
Living: [facility]
Employment: Not Employed
Family History
Family History: Other (Siblings healthy. Mother and father healthy)
Allergies / Home Medications
Allergies
Allergy/AdvReac Type Severity Reaction Status Date / Time
No Known Allergies Allergy Verified 03/31/24 20:28
Home Medications
�Medication �Instructions �Recorded �Confirmed �Last Taken �Type
ascorbic acid (vitamin C) 500 mg 500 mg PO DAILY Supplement 03/30/24 05/10/24 Unknown History
tablet (Vitamin C)
lidocaine 4 % topical patch 1 patch topical DAILY left shoulder 03/30/24 05/10/24 Unknown History
pantoprazole 40 mg tablet,delayed 40 mg PO DAILY Gastrointestinal 03/30/24 05/10/24 Unknown History
release Issue
potassium chloride 20 mEq 20 meq PO DAILY Electrolyte 03/30/24 05/10/24 Unknown History
tablet,extended release Repletion
spironolactone 50 mg tablet 50 mg PO DAILY Fluid 03/30/24 05/10/24 Unknown History
(Aldactone) Retention/Swelling
thiamine HCl (vitamin B1) 100 mg 100 mg PO DAILY Supplement 03/30/24 05/10/24 Unknown History
tablet
zinc sulfate 50 mg zinc (220 mg) 50 mg PO DAILY Supplement 03/30/24 05/10/24 Unknown History
capsule
buprenorphine HCl 2 mg sublingual 2 mg sublingual BID@0800,1600 #20 05/04/24 05/10/24 Unknown Rx
tablet tabs
cephalexin 500 mg capsule 500 mg PO BID 7 days #14 caps 05/04/24 05/10/24 Unknown Rx
furosemide 20 mg tablet (Lasix) 20 mg PO DAILY Fluid 05/04/24 05/10/24 Unknown Rx
Retention/Swelling #0 tabs
lactulose 20 gram/30 mL oral 20 g (30 mL) PO BID #1,500 mL 05/04/24 05/10/24 Unknown Rx
solution
melatonin 5 mg tablet 5 mg PO HS #30 tabs 05/04/24 05/10/24 Unknown Rx
prednisone 50 mg tablet 50 mg PO DAILY Anti-Inflammatory 05/04/24 05/10/24 Unknown Rx
#0 tabs
vancomycin 50 mg/mL oral solution 125 mg (2.5 mL) PO Q6 #80 mL 05/04/24 05/10/24 Unknown Rx
bisacodyl 10 mg rectal suppository 10 mg MT DAILYPRN PRN if mom is 05/10/24 05/10/24 Unknown History
(Dulcolax (bisacodyl)) ineffective
gabapentin 100 mg capsule 100 mg PO Q8H pain 05/10/24 05/10/24 Unknown History
magnesium hydroxide 400 mg/5 mL 30 ml PO DAILYPRN PRN if no bm x 3 05/10/24 05/10/24 Unknown History
oral suspension (Milk of Magnesia) days
mirtazapine 15 mg tablet 15 mg PO HS depression/sleep 05/10/24 05/10/24 Unknown History
sodium phosphates 19 gram-7 118 ml MT DAILYPRN PRN if 05/10/24 05/10/24 Unknown History
gram/118 mL enema (Fleet Enema) suppository is ineffective
Review of Systems
-
Unable to Obtain full review of systems at this time due to: Patient Intubation
History Source: Family
All other systems: Negative unless noted
Vitals / Labs / Diagnostic Testing
Vital Signs
Temp Pulse Resp BP Pulse Ox
99.9 F 118 21 89/62 91
06/03/24 11:21 06/03/24 13:00 06/03/24 13:00 06/03/24 12:00 06/03/24 13:00
Lab Data
06/03/24 03:18
06/03/24 03:19
Laboratory Results
06/02/24 06/03/24 06/03/24
17:10 01:42 04:56
pH 7.48 H 7.43 7.46 H
pCO2 38 H 41 H 39 H
pO2 68 L 59 L* 158 H
HCO3 28.3 H 27.2 27.7
O2 Delivery Level
Microbiology
06/03/24 01:46 Nasal Swab Influenza Types A & B (VICKEY) - Final
Negative for Influenza A & B, NAAT
Negative results must be combined with clinical observations
and patient history.
Nucleic Acid Amplification test (NAAT)performed on the
[employer] NOW platform.
Diagnostic Testing:
Physical Exam
-
HEENT: Normocephalic, Anicteric, Other (Left subclavian) and Other (Left upper extremity)
Cardiovascular: S1/S2, Regular Rhythm, Murmur (n) and Rub (n)
Respiratory: Wheeze (n), Rales (n), Rhonchi (few), Non-Labored Respirations and Other (ET tube)
GI: Soft and Non Distended
Neurology: No Motor Deficits (Spontaneously moves extremities) and Other (Lethargic, sedated)
Skin: Other (Right upper extremity amputation, right great hallux amputation with bandage )
General: Comfortable
Assessment
-
34-year-old female with complex medical history including prolonged hospital stay in October 2023 for drug relapse, history of overdose/polysubstance abuse, prolonged mechanical ventilation, eventual right upper extremity amputation secondary to
necrotizing fasciitis/cellulitis, brought to [place] by mother, immediately admitted to [facility] for GI issues, followed by hospital stay at [facility] for GI issues, recurrent small bowel obstruction, recent hospital stay at
[facility] for 1 month in March 2024, treated for hepatic encephalopathy, small bowel obstruction, improved with NG tube decompression. Now returns with similar symptom complex admitted 05/11/2024 for recurrent small bowel obstruction,
pain syndrome, refusal of care at times (NG tube, PT/OT, medications), now transferred to ICU 06/02 for progressive hypoxia, bilateral infiltrates requiring intubation and mechanical ventilation
Acute hypoxic respiratory failure
Intubated 06/03/2024
Progressive bilateral infiltrates
Suspect aspiration pneumonitis
Hypotension, possible sepsis versus hypovolemia
Leukocytosis
Hypokalemia/hypomagnesemia
Recurrent small bowel obstruction
Dilated small bowel per imaging
Possible stricture, possible inflammatory bowel disease
Endoscopy at outside hospital, no definitive diagnosis of Crohn's
Chronic steroid therapy per records
Prednisone 50 mg in the past
Liver cirrhosis, hepatitis C
Untreated
Ascites with paracentesis in the past
Hepatic encephalopathy with elevated ammonia in the past
Hypoalbuminemia, severe protein/calorie malnutrition
Chronic pain syndrome
Anemia
Required transfusion x 2, last 06/02
Right great hallux osteomyelitis
Status post amputation
Conditions present prior to admission
Prolonged hospital stay October 2023, [place]
[facility]
Right upper extremity amputation secondary to necrotizing fasciitis entheses
Required HD (pt refused to continue per Father)
Anxiety disorder/bipolar disorder
Polysubstance abuse, IV drug abuse
On Suboxone in the past
Drug use intermittently since age of 15 according to father
Multiple rehabilitation efforts in the past
Chronic lower extremity weakness, sedentary/bedbound since October 2023
Plan/recommendations
At this time, patient with extremely complex medical history with multiple prolonged hospital stays in [facility]. None of these records are available for review
History primarily obtained from father at bedside
Father is power of corporate associate attorney.
Moving forward continue with volume-cycled ventilation.
Bilateral aspiration pneumonia noted. Follow closely for lung injury process. Tracheal culture pending
Maintain volume-cycled ventilation, follow airway pressures
FiO2 weaned down to 60%
Maintain sedation, propofol/fentanyl
Given history of opioid use, will need to follow closely as she is required Dilaudid frequently over the hospital stay
Rotational bed
Continue with antibiotics for now, presently on Zosyn therapy
Follow cultures
IV fluid bolus x 1 then continue lactated Ringer's
Norepinephrine for hypotension
Check echocardiogram
Hemoglobin noted. Patient received 2 units of PRBC since hospital stay, last being 06/02
Given risk of lung injury process, would minimize transfusion as able
Follow-up for bleeding, no evidence of active bleeding at this time
Repeat coagulation studies
Replete electrolytes
Follow urine output
Alva catheter in place
Continues with TPN. Has required TPN throughout hospital stay. Unfortunate patient with protein calorie malnutrition
Hypoalbuminemia noted
NG tube in place
Dilated small bowel loops based on prior studies
Medications per NG tube if okay with surgery
DVT prophylaxis: Continue with enoxaparin 30 mg. Prefer mechanical prophylaxis as well as patient is high risk for thromboembolic disease. Patient has refused in the past. Father also has taken off in the past
GI prophylaxis: Remains on pantoprazole
Discussed at length with father and stepmother
Father admits that patient has been difficult, refusing therapy multiple times. She listens to him when he tells her to do it but when he leaves the room, she reverts to refusing care and therapy
He also is asking 'why are we giving her pain medicines? She is an addict?' I reviewed with father that when patient is screaming in excruciating pain, we cannot ignore this. We have to find a happy medium between controlling pain and avoiding
oversedation. This will be difficult given her drug abuse/polysubstance abuse history. Father states she has been using drugs probably since age of 15
Father also admits that patient has refused medications in the past, refuses placement of NG tube, refused nutrition when offered. Father also upset that daughter is not getting nutrition. However upon reviewing records, with every attempt to
advance diet, patient developed significant abdominal pain.
Recommendations have been made to transfer patient to tertiary care center ([place]). Patient and father refuses transfer of care at this time
I also reviewed with father and stepmother worst-case scenario where patient progresses to multisystem organ failure, developed complication of prolonged hospital stay, prolonged mechanical ventilation such as thromboembolic disease, recurrent
infections, bleeding, cardiac complications, renal complications. He did not want to hear this but I proceeded with stepmother as father stepped away. I told the stepmother that it is important for him to be hopeful of outcome but to be aware of
potential complications.
Father confirmed full CODE STATUS
Will request records from [facility]
The above was reviewed at length with critical care nursing, respiratory care, pharmacy
TCCT 85 min
[2024-06-03] MEDS: LEVOPHED 250 IV (13:54)
--- NOTE | 2024-06-03 14:41 | PTCARENOTE ---
Clarified with Dr. Linton using the [place] sump tube for medications that cannot be administered IVP. Per Dr. Linton the [place] sump may be used for these types of medications but he verbalized they may not absorb well.
[2024-06-03] MEDS: NEURONTIN 400 MG TUBE ×2 (15:44→21:54)
[2024-06-03] MEDS: FLEXERIL 10 MG TUBE ×2 (15:44→21:54)
[2024-06-03] MEDS: LOVENOX 30 MG SC (17:52)
[2024-06-03] MEDS: HYDROPHOR 1 APPLIC TOPICAL (17:53)
--- NOTE | 2024-06-03 17:56 | W.PN.GS2 ---
Today's Communication / Plan
-
TPN renewed. No lipids.
Assessment / Plan
-
Assessment: 34 yo female with h/o IVDA presenting with recurrent obstructive symptoms secondary to stricture of unclear etiology Crohns vs ischemic. ?history of Crohn's for which she has been on steroids without much benefit as well as recent
ischemic event in October during a drug OD which is when her GI symptoms began. Recently treated for pancolitis, C. difficile toxin negative antigen positive completed course of vancomycin.
AFVSS
Exacerbation of obstructive symptoms with PO liquid challenge
Prealbumin is declining -
05/17 - 7
05/25 - 11.7
05/31 - 5.2
Transferrin ordered today as well
Nutrition engaged earlier in the week and maximized her TPN
Plan:
--Continue NPO
--Continue TPN to ensure full daily nutritional intake, orders placed to renew
--plan not to attempt aggressive dietary advancement given chronic partial small bowel obstructive symptoms that have reoccurred numerous times recently
--Trend nutritional markers, cirrhosis scores
--Continue steroid taper
Tentative plan for delayed operative intervention following steroid wean and improvement in her nutrition/liver disease status. TPN renewed.
Time Spent
Total Time Spent with Patient (in minutes): 20
Subjective Data
-
Date of Service: June 03, 2024
Patient remains critically ill and currently intubated and sedated.
Objective Data
-
Intake and Output
06/02/24 06/03/24 06/04/24
06:59 06:59 06:59
Intake Total 1024 / 1024 3296.3 / 3411.0 2209.5 / 220.5
Output Total 1236 / 1266 264 / 264
Balance 1024 / 1024 2060.3 / 2145.0 1945.5 / 1944.5
Intake:
Oral fluids 240 / 240 120 / 120
IV fluids (Total) 103.3 / 131.0 1304.5 / 1304.5
0.9nss bolus 500 / 500
Lr 1,000 ml @ 100 mls/hr IV . 500 / 500
Q10H COSME Rx#:[id number]
Norepinephrine 22.5 / 22.5
fent 32.5 / 42.5 105.0 / 105.0
prop 70.8 / 88.5 177.0 / 177.0
IV piggybacks 100 / 100 532 / 532 225 / 225
TPN/PPN 684 / 684 1990 / 2047 570 / 570
Amount instilled into GI Tube ( 110 / 110
Total)
[place] Sump 110 / 110
Blood products 300 / 300
Blood Product Amount Infused ( 250 / 250
mL)
Packed Rbc Leukoreduced Unit 250 / 250
[id number]
Output:
Urine, Alva 336 / 366 264 / 264
Urine, Voided 900 / 900
Other:
How many times incontinent 1 1
SATURATED amount urine
Vital Signs
Temp Pulse Resp BP Pulse Ox
100.8 F H 126 37 89/62 94
06/03/24 14:19 06/03/24 14:15 06/03/24 14:15 06/03/24 12:00 06/03/24 16:43
Lab Results
06/03/24 03:18
06/03/24 03:19
Calcium 7.6 mg/dl (8.4-10.2) L 06/03/24 03:19
Phosphorus 3.8 mg/dl (2.5-4.5) 05/30/24 04:39
Magnesium Cancelled 06/03/24 02:03
Total Bilirubin 0.9 mg/dl (0.2-1.3) 06/03/24 03:19
Direct Bilirubin 0.3 mg/dl (0.0-0.4) 05/11/24 04:38
AST 49 U/L (14-36) H 06/03/24 03:19
ALT 28 U/L (0-35) 06/03/24 03:19
Alkaline Phosphatase 196 U/L (38-126) H 06/03/24 03:19
Total Protein 5.4 g/dl (6.3-8.2) L 06/03/24 03:19
Albumin 1.9 g/dl (3.5-5.0) L 06/03/24 03:19
Physical Exam
-
GENERAL/NEURO: Intubated and sedated
CHEST: Unlabored breathing on vent
ABDOMEN: Soft, distended
[2024-06-03 18:13] LABS: Glucose - Point of Care 113 mg/dl (70-99)
--- NOTE | 2024-06-03 18:41 | PTCARENOTE ---
Attempting to obtain blood cultures ordered this morning. Difficult due to 1 limb and gross anasarca.
--- NOTE | 2024-06-03 19:11 | PTCARENOTE ---
Attempted phlebotomyx2 with ultrasound assistance. Unable to obtain BCx2 ordered earlier in the day.
[2024-06-03] MEDS: TYLENOL ORAL SOLUTION 650 MG TUBE (19:31)
[2024-06-03] MEDS: VERSED 2 MG IV ×2 (20:04→22:17)
[2024-06-03] MEDS: MELATONIN 5 MG TUBE (21:54)
[2024-06-03] MEDS: REMERON 15 MG TUBE (21:54)
[2024-06-03] MEDS: Parenteral Nutrition, Central 1140 IV (22:05)
[2024-06-03] MEDS: SUBLIMAZE 100 MCG IV (22:17)
--- NOTE | 2024-06-03 23:37 | PTCARENOTE ---
Pt assessed. Mother remaining @ the bedside through shift. At change of shift pt was agitated with increase in HR, T 101.0 and attempting to grab ETT. Fent gtt @ 150. Prop going @ 50. Fent IVP as well as Versed provided as ordered. Pt sx for mod
thin clear secretions. Tylenol provided for Temp. Pt eventually settled down has been calm since. Additional dose of Fent and Versed provided for turning and positioning. Pt bathed with CHG wipes and provided oral cares. Dsgs to BLE CDI. RUE stump
remains warm to touch with erythema. Abd remains distended but soft. Extra dose of IV Tylenol given for T increase to 101.6 as per temp sensing masood. Pt remains in ST with soft pressures. Levo gtt infusing @ 4 with MAP maintained over 65. No s/s of
distress assessed. Will continue to monitor.
[2024-06-04] VITALS (29 sets, daily range): BP systolic 82–122; BP diastolic 52–84; BMI 23.5
[2024-06-04 00:04] LABS: Glucose - Point of Care 122 mg/dl (70-99)
--- NOTE | 2024-06-04 00:19 | PTCARENOTE ---
No change in pt status since previous assessment. Pt calm. VS as documented. No change in gtt titrations. Temp now 100.7.Mother remains at bedside. No s/s of distress assessed. Will continue to monitor.
[2024-06-04] MEDS: NSS 1000 IV (01:38)
[2024-06-04] MEDS: DIPRIVAN 100 IV ×4 (01:45→21:35)
--- NOTE | 2024-06-04 01:48 | PTCARENOTE ---
Informed covering WAREHOUSE ANALYST of pts urine output of 0ml. 1000cc bolus NS provided as ordered. Will continue to monitor.
[2024-06-04] MEDS: VERSED 2 MG IV (02:35)
[2024-06-04] MEDS: SUBLIMAZE 100 MCG IV ×3 (02:50→08:30)
[2024-06-04] MEDS: VERSED 3 MG IV (03:10)
--- NOTE | 2024-06-04 03:27 | PTCARENOTE ---
Pt stacking breaths. 2mg Versed given as had been ordered. Order was changed to 5mg. Pt was still stacking and desating to the mid 80's so 3mg more of Versed given as well as 100mcg Fent. Pt repositioned with CXR, now sating in the mid to low 90's.
T 98.9. Pt has appeared comfortable otherwise. Will continue to monitor.
[2024-06-04 04:14] LABS: B.E. -2.7 mmol/L; HCO3 21.6 mmol/L (21-28); O2 Saturation % 97.8 % (94-98); PCO2 34 mmHg (32-35); PO2 187 mmHg (83-108); pH 7.41 (7.35-7.45)
[2024-06-04 04:15] LABS: O2 Therapy VENT
[2024-06-04] MEDS: ZOSYN 50 IV (04:20)
[2024-06-04 04:39] LABS: Hemoglobin 7.2 g/dL (12.0-16.0); Mean Corp Hgb Conc. 32.7 g/dL (33.0-37.0); Mean Corpuscular Hgb 29.4 pg (27.0-31.0); Mean Corpuscular Volume 89.8 fL (81.0-99.0); Mean Platelet Volume 11.5 fL (7.4-10.4); Platelet Count 484 10^3/uL (130-400); Red Blood Cell Count 2.45 10^6/uL (4.20-5.40); Red Cell Dist. Width 20.2 % (11.5-14.5); White Blood Cell Count 24.4 10^3/uL (4.8-10.8)
[2024-06-04 04:47] LABS: ALT (SGPT) 21 U/L (0-35); AST (SGOT) 59 U/L (14-36); Albumin 1.6 g/dl (3.5-5.0); Alkaline Phosphatase 162 U/L (38-126); Blood Urea Nitrogen 21 mg/dl (7-17); Calcium 7.5 mg/dl (8.4-10.2); Carbon Dioxide 28 mmol/L (22-30); Chloride 105 mmol/L (98-107); Estimated Creatinine Clearance 119 ml/min; Glucose 114 mg/dl (70-99); Phosphorus 4.1 mg/dl (2.5-4.5); Potassium 3.2 mmol/L (3.5-5.1); Sodium 137 mmol/L (135-145); Total Bilirubin 0.6 mg/dl (0.2-1.3); Total Protein 4.9 g/dl (6.3-8.2); eGFR > 60.00
[2024-06-04] MEDS: SUBLIMAZE 100 IV ×3 (05:33→19:58)
[2024-06-04] MEDS: VERSED 5 MG IV ×3 (05:40→20:32)
[2024-06-04 06:06] LABS: Glucose - Point of Care 109 mg/dl (70-99)
[2024-06-04] MEDS: KCL 100 IV (06:17)
[2024-06-04] MEDS: LEVOPHED 250 IV (06:17)
--- NOTE | 2024-06-04 06:40 | PTCARENOTE ---
Pt remains the same as previously assessed. Remains having issues keeping sats up over 90%. Discussed with TECHNICAL PRODUCER on. No change to care relayed. Medicated as ordered. Tolerated well. No s/s of distress assessed.
[2024-06-04] MEDS: CALCIUM GLUCONATE 100 IV (07:20)
--- NOTE | 2024-06-04 07:46 | W.PN.INTV ---
Today's Communication / Plan
Recommendations
Ventilator adjustments, minimize lung injury
Follow plateau pressures
PEEP increased to 8
Transition to rotational bed
Maintain sedation
Broaden antibiotics per ID
TPN continues
Replete electrolytes
Reviewed with mother at bedside. Poor prognosis long-term given multisystem organ dysfunction
Assessment
-
34-year-old female with complex medical history including prolonged hospital stay in October 2023 for drug relapse, history of overdose/polysubstance abuse, prolonged mechanical ventilation, eventual right upper extremity amputation secondary to
necrotizing fasciitis/cellulitis, brought to [place] by mother, immediately admitted to [facility] for GI issues, followed by hospital stay at [facility] for GI issues, recurrent small bowel obstruction, recent hospital stay at
[facility] for 1 month in March 2024, treated for hepatic encephalopathy, small bowel obstruction, improved with NG tube decompression. Now returns with similar symptom complex admitted 05/11/2024 for recurrent small bowel obstruction,
pain syndrome, refusal of care at times (NG tube, PT/OT, medications), now transferred to ICU 06/02 for progressive hypoxia, bilateral infiltrates requiring intubation and mechanical ventilation
Acute hypoxic respiratory failure
Intubated 06/03/2024
Progressive bilateral infiltrates
Suspect aspiration pneumonitis
Lung injury, early ARDS
Hypotension, possible sepsis versus hypovolemia
Leukocytosis
Hypokalemia/hypomagnesemia
Recurrent small bowel obstruction
Dilated small bowel per imaging
Possible stricture, possible inflammatory bowel disease
Endoscopy at outside hospital, no definitive diagnosis of Crohn's
Chronic steroid therapy per records
Prednisone 50 mg in the past
Liver cirrhosis, hepatitis C
Untreated
Ascites with paracentesis in the past
Hepatic encephalopathy with elevated ammonia in the past
Hypoalbuminemia, severe protein/calorie malnutrition
Chronic pain syndrome
Anemia
Required transfusion x 2, last 06/02
Right great hallux osteomyelitis
Status post amputation
Conditions present prior to admission
Prolonged hospital stay October 2023, [place]
VDRF
Right upper extremity amputation secondary to necrotizing fasciitis entheses
Required HD (pt refused to continue per Father)
Anxiety disorder/bipolar disorder
Polysubstance abuse, IV drug abuse
On Suboxone in the past
Drug use intermittently since age of 15 according to father
Multiple rehabilitation efforts in the past
Chronic lower extremity weakness, sedentary/bedbound since October 2023
Plan/recommendations
At this time, patient remains critically ill
Remains sedated with fentanyl/propofol
Now on norepinephrine
Desaturates with minimal activity, agitation
Worried about progressive lung injury process
Moving forward
Maintain volume-cycled ventilation
AC 12/450/5/70%
Ppk 35, Pplat 27
Increased PEEP to 8, increased respiratory to 18
Repeat plateau pressure adequate
Chest x-ray with worsening bilateral infiltrates
Bilateral aspiration pneumonia noted. Follow closely for lung injury process. Tracheal culture pending
Maintain volume-cycled ventilation, follow airway pressures
Maintain sedation, propofol/fentanyl, RASS -3
Given history of opioid use, will need to follow closely as she is required Dilaudid frequently over the hospital stay
Rotational bed
Hypotension noted
Patient requiring norepinephrine over last 24 hours
IV fluids
Will need to carefully hydrate given possibly of progressive lung injury process
Stress dose steroids will be started. Patient was on steroids in the past
Continue with antibiotics for now, presently on Zosyn therapy
Follow cultures
Fevers noted
Unable to obtain cultures, poor access
Infectious disease has been consulted
Continue with IV fluids, minimize if possible
Norepinephrine for hypotension
Echocardiogram with normal biventricular function, PA pressure 31
Hemoglobin noted. Patient received 2 units of PRBC since hospital stay, last being 06/02
Given risk of lung injury process, would minimize transfusion as able
Follow-up for bleeding, no evidence of active bleeding at this time
Replete electrolytes
Follow urine output
Alva catheter in place
Patient with history of dialysis for prolonged period in October 2023 while in [place]
Continues with TPN. Has required TPN throughout hospital stay. Unfortunate patient with protein calorie malnutrition
Hypoalbuminemia noted
NG tube in place
Dilated small bowel loops based on prior studies
Medications per NG tube if okay with surgery
DVT prophylaxis: Continue with enoxaparin 30 mg. Prefer mechanical prophylaxis as well as patient is high risk for thromboembolic disease. Patient has refused in the past. Father also has taken off in the past. Add mechanical prophylaxis
GI prophylaxis: Remains on pantoprazole
Updated mother at bedside at length 06/04
Discussed at length with father and stepmother 06/03
Father admits that patient has been difficult, refusing therapy multiple times. She listens to him when he tells her to do it but when he leaves the room, she reverts to refusing care and therapy
He also is asking 'why are we giving her pain medicines? She is an addict?' I reviewed with father that when patient is screaming in excruciating pain, we cannot ignore this. We have to find a happy medium between controlling pain and avoiding
oversedation. This will be difficult given her drug abuse/polysubstance abuse history. Father states she has been using drugs probably since age of 15
Father also admits that patient has refused medications in the past, refuses placement of NG tube, refused nutrition when offered. Father also upset that daughter is not getting nutrition. However upon reviewing records, with every attempt to
advance diet, patient developed significant abdominal pain.
Recommendations have been made to transfer patient to tertiary care center ([place]). Patient and father refuses transfer of care at this time
I also reviewed with father and stepmother worst-case scenario where patient progresses to multisystem organ failure, developed complication of prolonged hospital stay, prolonged mechanical ventilation such as thromboembolic disease, recurrent
infections, bleeding, cardiac complications, renal complications. He did not want to hear this but I proceeded with stepmother as father stepped away. I told the stepmother that it is important for him to be hopeful of outcome but to be aware of
potential complications.
Father confirmed full CODE STATUS
Will request records from [facility]
The above was reviewed at length with critical care nursing, respiratory care, pharmacy
TCCT 40 min
Subjective Dataa
Subjective Data
Date of Service:
Date of Service: June 04, 2024
Subjective:
Patient remains critically ill. Desaturates with any movement, agitation. Minimal secretions. Hemoglobin noted. Continues to have fevers. Mother at bedside
Objective Data
Data Reviewed
Vital Signs / I&O / Oxygen:
Vital Signs
Temp Pulse Resp BP Pulse Ox
99.1 F 125 27 88/52 93
06/04/24 07:26 06/04/24 06:00 06/04/24 06:00 06/04/24 04:43 06/04/24 07:26
Intake and Output
06/03/24 06/04/24 06/05/24
06:59 06:59 06:59
Intake Total 3296.3 / 3411.0 5680.6 / 5877.8 197.2 / 197.2
Output Total 1236 / 1266 874 / 904 / 30
Balance 2060.3 / 2145.0 4806.6 / 4973.8 167.2 / 167.2
SaO2 [A/C] 92
SaO2 93
Nasal Cannula flow liters per 60
minute
Physical Exam
General: Comfortable and Other (Left subclavian central line, left upper extremity A-line)
HEENT: Normocephalic and Anicteric
Cardiovascular: S1-S2, Regular Rhythm (Tachycardic), Murmur (n), Rub (n), Peripheral Edema (n) and Other (Right upper extremity amputation, toe dressing)
Respiratory: Wheeze (n), Crackles (few), Rhonchi (few), Non-Labored Respirations, Stridor (n) and ET Tube
GI: Soft, Distended and NG Tube
Neurology: No Motor Deficits (Spontaneously moves extremities when agitated) and Lethargic (Sedated)
Skin: Cyanosis (n), Jaundice (n) and Rash (n)
Labs/Micro/Reports
Lab Data
06/04/24 04:12
06/04/24 04:12
Laboratory Results
06/04/24
04:13
pH 7.41
pCO2 34
pO2 187 H
HCO3 21.6
O2 Delivery Level Vent
Microbiology
06/03/24 04:12 Endotracheal Gram Stain - Preliminary
06/03/24 01:46 Nasal Swab Influenza Types A & B (VICKEY) - Final
Negative for Influenza A & B, NAAT
Negative results must be combined with clinical observations
and patient history.
Nucleic Acid Amplification test (NAAT)performed on the
[employer] platform.
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
[2024-06-04 08:26] LABS: % Basophils 0.3 % (0-2); % Eosinophils 0.5 % (0-6); % Immature Granulocytes 2.7 % (0-0.5); % Monocytes 2.9 % (1.7-9.3); % Neutrophils 84.6 % (42.2-75.2); Absolute Basophils 0.1 10^3/uL (0-0.2); Absolute Eosinophils 0.1 10^3/uL (0-0.7); Absolute Immature Granulocytes 0.7 10^3/uL (0-0.05); Absolute Lymphocytes 2.2 10^3/uL (1.2-3.4); Absolute Monocytes 0.7 10^3/uL (0.1-0.6); Absolute Neutrophils 20.7 10^3/uL (1.4-6.5); Nucleated Red Blood Cells % 0.6 %
[2024-06-04] MEDS: LR 1000 IV ×2 (08:27→18:03)
[2024-06-04] MEDS: MIRALAX 17 GRAMS TUBE (08:29)
[2024-06-04] MEDS: NSS (PRESERVATIVE FREE) 10 ML IV (08:29)
[2024-06-04] MEDS: FLEXERIL 10 MG TUBE ×3 (08:29→21:35)
[2024-06-04] MEDS: HYDROPHOR 1 APPLIC TOPICAL (08:29)
[2024-06-04] MEDS: PROTONIX IV 40 MG IV (08:30)
[2024-06-04] MEDS: VISBIOME 1 CAP TUBE (08:30)
[2024-06-04] MEDS: NEURONTIN 400 MG TUBE ×3 (08:30→21:36)
[2024-06-04] MEDS: TYLENOL ORAL SOLUTION 650 MG TUBE ×2 (08:31→15:59)
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
[2024-06-04] MEDS: MERREM 500 MG IV ×3 (10:08→21:36)
[2024-06-04] MEDS: STERILE WATER FOR INJECTION 10 ML IV ×4 (10:08→21:44)
[2024-06-04] MEDS: SOLU-CORTEF 50 MG IV ×2 (11:34→18:04)
[2024-06-04 11:38] LABS: B.E. -1.4 mmol/L; HCO3 24.3 mmol/L (21-28); O2 Saturation % 93.9 % (94-98); PCO2 44 mmHg (32-35); PO2 74 mmHg (83-108); pH 7.35 (7.35-7.45)
--- NOTE | 2024-06-04 11:57 | W.PN.SURGUPD ---
Surgical Update
Surgical Update
patient remains critically ill:
Surgery following for recurrent obstructive symptoms secondary to stricture of unclear etiology Crohns vs ischemic
Continue NGT to suction, no enteral feedings
TPN renewed with attention to potassium deficiency.
Lipids in TPN held as per stranding machine operator recs given ongoing use of propofol
Continue to trend labs
Tentative plan for delayed operative intervention following steroid wean and improvement in her clinical/nutritional/hepatic status. TPN renewed.
--- NOTE | 2024-06-04 14:01 | W.PN.UPDATE ---
Update Note
Progress Note Update
Patient evaluated multiple times throughout the day. Progressive hypoxemia, worsening BRITTANY gradient throughout the day noted.
With any motion, movement, agitation, coughing, she desaturates.
When transition to rotational bed, desaturated in the mid 70s
ABG reviewed. Progressively worse Aa gradient noted
Concerned about progressive lung injury process, ARDS physiology. Airway pressures, plateau pressure slowly rising, currently 30. PEEP remains at 8, FiO2 100%
I updated mother at bedside multiple times and contacted father by phone reviewing course during the day
I reviewed my concern regarding progressive lung injury and need for transfer to tertiary care center where ECMO may be provided. Initially father refused to go to [facility] but agreed for me to contact [facility]. Father only agreed for [facility]
transfer. When asked why, father states 'my daughter didn't want to go to [facility]' I relayed to the father that I will contact both places and hope that we may have a choice and will choose [facility] based on father's request.
I contacted the ECMO team at [facility] and spoke with physician regarding transfer for VV ECMO. Reviewed clinical course. [facility] ECMO team declined patient due to multiple comorbidities but specifically due to underlying cirrhosis
I contacted lung injury rescue team at [facility] and spoke with the physician regarding transfer for VV ECMO. Reviewed clinical course. Although lung injury rescue team did not say no, they did say highly unlikely they can accept this patient due to
chronic diseases, specifically liver disease, cirrhosis. However, they asked that we contact them again in the next 24 hours depending on clinical course.
I called [facility]. I was told that by transfer center that there are no beds available at this time and it would be at least a 2 to 3-day wait at the least for an ICU bed
I reviewed the above discussions with the father by phone. Unfortunately, no clear pathway for transfer at this time for VV ECMO.
Plan moving forward will include intermittent vecuronium, possibly vecuronium drip depending on how she does
Will start nebulized epoprostenol per protocol today
Reassess overall lung injury status in the next 24 hours. Will need to consider 16-hour proning strategy possibly to start 06/05 depending on above. Father had concerns regarding this given her abdominal issues but I reassured him that if we need
to prone, we will take appropriate precautions. NG tube in place at this time.
I reviewed with both mother and father extremely poor prognosis at this time given multisystem organ dysfunction/failure, specifically worsening lung injury. Discussed high mortality in this situation. Father understood. Mother understood. Both
are appreciative of care.
All questions answered.
Reviewed above plan at length with primary service, critical care nursing, respiratory care
TCCT 60 min
[2024-06-04] MEDS: REFRESH CELLUVISC GEL 1 DROPS OPHTH (14:54)
[2024-06-04] MEDS: NORCURON 6 MG IV (14:55)
--- NOTE | 2024-06-04 15:00 | PTCARENOTE ---
pt overbreathing vent and hypoxic on 100% fio2. dr hall in to see pt, increased rr to 24 and wanted increased sedation, pt given versed and fentanyl bolus as charted with minimal improvement in sats up to 91%. bis monitor applied and after
bolus was in low 30 range, did increase to low 40s but Dr Hall still wanted vec bolus prn. sats have improved to mid 90s with paralysis. mom tearful at bedside.
[2024-06-04 15:54] LABS: B.E. -3.2 mmol/L; HCO3 22.7 mmol/L (21-28); O2 Saturation % 97.1 % (94-98); PCO2 44 mmHg (32-35); PO2 94 mmHg (83-108); pH 7.32 (7.35-7.45)
--- NOTE | 2024-06-04 15:57 | CHAP ---
Called by Security to speak with Miriam's mother, Carolynn. She stated that her only daughter is in danger of , and she requested emergency Pentecostalism for her. After we discussed this, it was agreed that the Pentecostalism would be appropriate, and it was
performed. Emotional and spiritual support provided, along with the assurance of our on-going availability.
[2024-06-04] MEDS: VELETRI 50 MCG INH (16:12)
[2024-06-04] MEDS: VELETRI 50 ML INH (16:12)
--- NOTE | 2024-06-04 17:26 | PTCARENOTE ---
systems unchanged. sats have improved with the addition of epopronestyl via vent, bis has remained in low 40s with current sedation. otherwise please see worklist
[2024-06-04 17:53] LABS: Glucose - Point of Care 136 mg/dl (70-99)
[2024-06-04] MEDS: LOVENOX 30 MG SC (18:04)
[2024-06-04 18:05] LABS: B.E. -1.7 mmol/L; HCO3 23.7 mmol/L (21-28); O2 Saturation % 96.1 % (94-98); PCO2 42 mmHg (32-35); PO2 74 mmHg (83-108); pH 7.36 (7.35-7.45)
[2024-06-04] MEDS: REMERON 15 MG TUBE (21:35)
[2024-06-04] MEDS: MELATONIN 5 MG TUBE (21:35)
[2024-06-04] MEDS: Parenteral Nutrition, Central 1140 IV (21:42)
[2024-06-05] VITALS (49 sets, daily range): BP systolic 87–114; BP diastolic 55–82; BMI 24.9
[2024-06-05] MEDS: SOLU-CORTEF 50 MG IV ×4 (00:11→17:03)
[2024-06-05] MEDS: DULCOLAX 10 MG RECTAL (00:15)
[2024-06-05] MEDS: VELETRI 50 ML INH ×3 (00:47→20:22)
[2024-06-05] MEDS: VELETRI 50 MCG INH ×3 (00:47→20:22)
--- NOTE | 2024-06-05 01:18 | PTCARENOTE ---
Assessed. Pt in deep sedation to tolerate ventilator. PERRLA sluggish 3. No voluntary movements. BIS noted over 40.Pt had wrist restraint off since day shift. Pt ST on monitor. A-line reads MAP in the 70's to 80's with 2 of levo infusing. It has
been titrated as documented. Pt noted to have anasarca +2 throughout whole body with pitting. Pt tolerating vent on ordered settings. Lungs diminished with rhonchi throughout. Sx as needed for thin clear to white secretions. Pt given ducolax supp
for no BM x 3 days. No results as of this note. RUE remains edematous and warm. Dsgs CDI. Pt medicated as ordered. Has not required fent IVP but did receive Versed as ordered for desating after cares. No s/s of distress assessed. Will continue to
monitor.
[2024-06-05] MEDS: STERILE WATER FOR INJECTION 10 ML IV ×7 (02:12→23:00)
[2024-06-05] MEDS: NORCURON 6 MG IV ×5 (02:13→23:00)
[2024-06-05] MEDS: SUBLIMAZE 100 IV ×4 (02:18→23:07)
--- NOTE | 2024-06-05 02:57 | PTCARENOTE ---
pt sats dropped to 90%. Pt appeared calm with no s/s of distress. PIPE STEM SAWYER made aware. Vecuronium given as ordered. Pt sats increased to 98%. No s/s of distress currently assessed. Will continue to monitor.
[2024-06-05] MEDS: DIPRIVAN 100 IV ×3 (03:12→15:21)
[2024-06-05] MEDS: REFRESH CELLUVISC GEL 1 DROPS OPHTH ×2 (03:17→14:13)
[2024-06-05] MEDS: MERREM 500 MG IV ×4 (03:18→22:47)
[2024-06-05] MEDS: VERSED 5 MG IV ×4 (04:13→22:59)
[2024-06-05] MEDS: LR 1000 IV (05:13)
[2024-06-05 05:39] LABS: Hematocrit 22.2 % (37.0-47.0); Hemoglobin 7.1 g/dL (12.0-16.0); Mean Corpuscular Hgb 29.5 pg (27.0-31.0); Mean Corpuscular Volume 92.1 fL (81.0-99.0); Mean Platelet Volume 12.1 fL (7.4-10.4); Platelet Count 526 10^3/uL (130-400); Red Blood Cell Count 2.41 10^6/uL (4.20-5.40); White Blood Cell Count 32.6 10^3/uL (4.8-10.8)
[2024-06-05 05:42] LABS: INR 1.14; PT 15.1 Sec (11.4-14.6)
[2024-06-05 05:45] LABS: Glucose - Point of Care 132 mg/dl (70-99)
[2024-06-05 05:51] LABS: ALT (SGPT) 18 U/L (0-35); AST (SGOT) 47 U/L (14-36); Albumin 1.6 g/dl (3.5-5.0); Alkaline Phosphatase 212 U/L (38-126); Blood Urea Nitrogen 19 mg/dl (7-17); Calcium 8.2 mg/dl (8.4-10.2); Carbon Dioxide 25 mmol/L (22-30); Chloride 108 mmol/L (98-107); Estimated Creatinine Clearance 119 ml/min; Glucose 113 mg/dl (70-99); Potassium 4.1 mmol/L (3.5-5.1); Sodium 138 mmol/L (135-145); Total Bilirubin 0.3 mg/dl (0.2-1.3); Total Protein 5.1 g/dl (6.3-8.2); eGFR > 60.00
--- NOTE | 2024-06-05 06:07 | PTCARENOTE ---
~0415, pt desatting to 89%. Had previously been >95% after recent vec dose. [employer] SUPER[employer] notified. Decision made to prone pt. Another vec dose and versed given per [employer]ARM SUPERVISOR. Proned per protocol with multiple RNs, RT and [employer] SUPERVISOR, foams and pillows placed at bony
prominences. Initial sats after prone were 77% but recovered over 30-45 minutes and now 96-99%. Remains on A/C 24/400/+8/100%.
Attempted to obtain lab work from A line but A line sluggish but able to flush. Unable to obtain lab work off A line then A line flattened. Redressed and repositioned with no success, [employer] SUPERVISOR notified. A line pulled. L UA BP cuff correlating with
5-10mmHg.
Pt. then started alarming vent, high pressuring. Sats maintained >95%. Pt. in no distress. Another vec dose and versed given ~0535 per [employer] SUPERVISOR. RT to bedside, changed vent tubing and suctioned ETT for thick, clear secretions. Monitoring closely.
Mother at bedside throughout the night and tearful - support given and updated on plan of care.
--- NOTE | 2024-06-05 07:20 | W.PN.HOSP.TC ---
Today's Communication/Plan
-
Discontinue IV fluids if okay with body wirer
Continue antibiotics
Assessment / Plan
Assessment / Plan
Gen-sedated, intubated, prone
HEENT-NC, AT, anicteric, clear oral mm
Neck-supple
CV-reg, no M, +S1/S2, tachy
Lungs-clear B/L
Abd-soft, NT, ND
Ext-no edema
Musculoskeletal-no cyanosis, clubbing, bilateral foot drop
Skin-warm and dry
Sepsis -differential diagnosis includes pneumonia versus aspiration pneumonitis versus bacteremia versus other causes. Ongoing leukocytosis and fever noted. Consult ID. Currently on empiric meropenem. Vasopressor dependent shock state,
differential diagnosis includes sepsis versus hypovolemia versus other causes. Continue Levophed as needed. Doubt cardiogenic given normal EF on echocardiogram.
Recurrent SBO -unclear etiology of bowel obstruction, perhaps ischemia induced strictures. She does not have a confirmed diagnosis of inflammatory bowel disease. High risk for operative intervention per surgical service given low prealbumin level,
severe malnutrition and cirrhosis. Prealbumin remains low despite ongoing TPN. Last prealbumin was 5.2. Discussed with Dr. Godwin. I am not sure prealbumin is reliable in the setting of her underlying cirrhosis, critical illness.
NG tube with minimal output.
Acute hypoxic respiratory failure -unfortunately worsening respiratory failure and now has ARDS physiology. Intubated tip stretcher 06/03 for respiratory failure.
Chest x-ray shows extensive bilateral alveolar and interstitial opacities consistent with ARDS versus multifocal pneumonia. CVP was measuring at 1 and IV fluids initiated 06/03. Weight up 7 kg.
Appreciate body wirer's efforts at trying to transfer to tertiary care center for ECMO. So far she has been denied by multiple institutions. In addition, there are no beds available for transfer.
Prone positioning per protocol.
Intractable pain syndrome -complaining of severe bilateral lower extremity pain and muscle cramps which is chronic. Was on IV Dilaudid every 4 hours as needed prior to intubation. Currently on fentanyl IV as needed.
Pancolitis
C. difficile antigen positive toxin negative recently treated with oral vancomycin.
Cirrhosis secondary to untreated hepatitis C.
Hepatic encephalopathy
Recurrent ascites.
Anasarca
Severe protein/calorie malnutrition -continue TPN.
Hypovolemic hyponatremia -resolved.
Hypokalemia -improved.
Acute on chronic anemia - Transfused 2 units of blood so far this admission. No obvious evidence of bleeding. Hemoglobin was 8.5 early yesterday morning, 7.1 this morning. Doubt hemolysis with normal bilirubin. Given positive fluid status of 4.8
L, suspect hemodilution induced anemia due to IV fluid administration. Monitor hemoglobin for now. Transfuse if below 7.
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
Polysubstance abuse, former IVDA on Suboxone.
Anxiety disorder
Multiple skin breakdowns
Chronic bilateral lower extremity weakness, bedbound status
History of IVDA
Full code
Father who is the POA is at the bedside today and he states that he does not want her transferred under any circumstances to [facility]. He understands that she could potentially deteriorate and in our hospital. In addition,
he states that Miriam also does not want to be transferred to [facility].
Cello Teacher explained potential deterioration including multiorgan failure to family.
Updated biological mother at the bedside today who is hopeful and tearful. Explained her daughters critical condition and very poor prognosis. We are still working on trying to save her life.
Anticipated Discharge: > 48 hours
Subjective/Interval History
-
Date of Service: June 05, 2024
Patient seen and examined. Intubated, sedated and in prone position in ICU.
Objective Data
-
Labs:
Laboratory Results
06/05/24 06/05/24
05:08 06:00
WBC 32.6 H
Hgb 7.1 L
Hct 22.2 L
Plt Count 526 H
PT 15.1 H
INR 1.14
HCO3 Pending
Sodium 138
Potassium 4.1
Chloride 108 H
Carbon Dioxide 25
BUN 19 H
Creatinine 0.3 L
Glucose 113 H
Calcium 8.2 L
Total Bilirubin 0.3
AST 47 H
ALT 18
Alkaline Phosphatase 212 H
Vital Signs:
Vital Signs
Temp Pulse Resp BP Pulse Ox
99.0 F 124 24 101/57 95
06/05/24 03:45 06/05/24 06:00 06/05/24 06:00 06/05/24 06:00 06/05/24 06:43
I&O
06/04/24 06/05/24 06/06/24
06:59 06:59 06:59
Intake Total 5680.6 / 5877.8 3986.0 / 3986.0
Output Total 874 / 904 1110 / 1110
Balance 4806.6 / 4973.8 2876.0 / 2876.0
Review of Systems
-
Unable to obtain full review of systems at this time due to: Acuity and Patient Intubation
--- NOTE | 2024-06-05 07:30 | PTCARENOTE ---
Pt rec'd from night RN intubated/sedated; Propofol/Fentanyl/TPN/Levophed infusing via left IJ TL CVC, see worklist for rates. #8 ETT secured 22cm on the right. Tolerating AC 24/400/100%/8. Pulse ox 99%. Pt was proned at 0545 by previous shift. Pt
required 3 doses Vec overnight. Repositioned Q2 hours per protocol. Alva with fallon/yellow urine, small amounts. Aspiration precautions maintained. Right Nare [place] sump secured 65cm to LIWS. Meds administered per AUG. Mother is at the bedside.
Dr. Brewster provided an update and informed of the plan of care. Oral care, gurpreet care, CHG bath provided. Supportive care given, safe environment maintained.
--- NOTE | 2024-06-05 07:41 | W.PN.INTV ---
Today's Communication / Plan
Recommendations
Continue 16-hour prone strategy, supine at approximately 8 PM
Chest x-ray following supination
Plan to replace radial a-line. If unable, will likely require femoral a-line
Continue epoprostenol nebulized. Will taper off following supination this p.m.
Continue vecuronium as needed
Consider Lasix later p.m.
Maintain deep sedation
Minimize transfusion as able
Assessment
-
34-year-old female with complex medical history including prolonged hospital stay in October 2023 for drug relapse, history of overdose/polysubstance abuse, prolonged mechanical ventilation, eventual right upper extremity amputation secondary to
necrotizing fasciitis/cellulitis, brought to [place] by mother, immediately admitted to [facility] for GI issues, followed by hospital stay at [facility] for GI issues, recurrent small bowel obstruction, recent hospital stay at
[facility] for 1 month in March 2024, treated for hepatic encephalopathy, small bowel obstruction, improved with NG tube decompression. Now returns with similar symptom complex admitted 05/11/2024 for recurrent small bowel obstruction,
pain syndrome, refusal of care at times (NG tube, PT/OT, medications), now transferred to ICU 06/02 for progressive hypoxia, bilateral infiltrates requiring intubation and mechanical ventilation
Acute hypoxic respiratory failure
Intubated 06/03/2024
Progressive bilateral infiltrates
Suspect aspiration pneumonitis
Lung injury, early ARDS
Hypotension, possible sepsis versus hypovolemia
Leukocytosis
Hypokalemia/hypomagnesemia
Recurrent small bowel obstruction
Dilated small bowel per imaging
Possible stricture, possible inflammatory bowel disease
Endoscopy at outside hospital, no definitive diagnosis of Crohn's
Chronic steroid therapy per records
Prednisone 50 mg in the past
Liver cirrhosis, hepatitis C
Untreated
Ascites with paracentesis in the past
Hepatic encephalopathy with elevated ammonia in the past
Hypoalbuminemia, severe protein/calorie malnutrition
Chronic pain syndrome
Anemia
Required transfusion x 2, last 06/02
Right great hallux osteomyelitis
Status post amputation
Conditions present prior to admission
Prolonged hospital stay October 2023, [place]
[facility]DR[facility]
Right upper extremity amputation secondary to necrotizing fasciitis entheses
Required HD (pt refused to continue per Father)
Anxiety disorder/bipolar disorder
Polysubstance abuse, IV drug abuse
On Suboxone in the past
Drug use intermittently since age of 15 according to father
Multiple rehabilitation efforts in the past
Chronic lower extremity weakness, sedentary/bedbound since October 2023
Plan/recommendations
At this time, patient remains critically ill
Remains sedated with fentanyl/propofol, vecuronium as needed
Norepinephrine at 2 to 4 mcg
Epoprostenol nebulized therapy started 06/04 in the afternoon
Worried about progressive lung injury process
Patient has been prone since 4 AM 06/05. NG tube to suction
Moving forward
Maintain volume-cycled ventilation
AC 24/400/8/100%
Ppk 29, Pplat 26
Chest x-ray with worsening bilateral infiltrates
We will obtain following supine later p.m.
Bilateral aspiration pneumonia noted. Cultures pending
Maintain volume-cycled ventilation, follow airway pressures
Maintain sedation, propofol/fentanyl, vecuronium as needed
Continue with nebulized epoprostenol started 06/04, wean overnight 06/05 per protocol-30
Given history of opioid use, will need to follow closely as she is required Dilaudid frequently over the hospital stay
Rotational bed
Hypotension noted
Patient requiring norepinephrine over last 24 hours, 2 to 4 mcg. Wean off as able
Will discontinue IV fluids, weight significantly up, anasarca
Continue stress dose steroids, Patient was on steroids in the past
Echocardiogram with normal biventricular function, PA pressure 31
Would like to give Lasix therapy, will reassess after supine later p.m.
Continue with antibiotics for now, presently on meropenem
Follow cultures
Fevers noted, fever curve seems to be improved
Unable to obtain cultures, poor access
Infectious disease has been consulted
Hemoglobin noted. Patient received 2 units of PRBC since hospital stay, last being 06/02
Given risk of lung injury process, would minimize transfusion as able
Follow-up for bleeding, no evidence of active bleeding at this time
Replete electrolytes
Follow urine output
Alva catheter in place
Patient with history of dialysis for prolonged period in October 2023 while in [place]
Continues with TPN. Has required TPN throughout hospital stay. Unfortunate patient with protein calorie malnutrition
Hypoalbuminemia noted
NG tube in place, maintain to suction especially when prone
Dilated small bowel loops based on prior studies
Medications per NG tube if okay with surgery
DVT prophylaxis: Continue with enoxaparin 30 mg. Prefer mechanical prophylaxis as well as patient is high risk for thromboembolic disease. Patient has refused in the past. Father also has taken off in the past. Add mechanical prophylaxis
GI prophylaxis: Remains on pantoprazole
Updated mother and father at bedside at length 06/05. All questions answered
See prior update note for transfer to tertiary care center. No clear pathway for transfer to [facility]
Family aware
Prior discussion:
Father admits that patient has been difficult, refusing therapy multiple times. She listens to him when he tells her to do it but when he leaves the room, she reverts to refusing care and therapy
He also is asking 'why are we giving her pain medicines? She is an addict?' I reviewed with father that when patient is screaming in excruciating pain, we cannot ignore this. We have to find a happy medium between controlling pain and avoiding
oversedation. This will be difficult given her drug abuse/polysubstance abuse history. Father states she has been using drugs probably since age of 15
Father also admits that patient has refused medications in the past, refuses placement of NG tube, refused nutrition when offered. Father also upset that daughter is not getting nutrition. However upon reviewing records, with every attempt to
advance diet, patient developed significant abdominal pain.
I also reviewed with father and stepmother worst-case scenario where patient progresses to multisystem organ failure, developed complication of prolonged hospital stay, prolonged mechanical ventilation such as thromboembolic disease, recurrent
infections, bleeding, cardiac complications, renal complications. He did not want to hear this but I proceeded with stepmother as father stepped away. I told the stepmother that it is important for him to be hopeful of outcome but to be aware of
potential complications.
Father confirmed full CODE STATUS
Will request records from [facility]
The above was reviewed at length with critical care nursing, respiratory care, primary service
TCCT 45 min
Subjective Dataa
Subjective Data
Date of Service:
Date of Service: June 05, 2024
Subjective:
Patient remains critically ill. Remains on low-dose norepinephrine at 2 mcg, ventilator dependent. Prone positioning at 4 AM. Unfortunately shortly thereafter, A-line not working, dampened, discontinued.
Objective Data
Data Reviewed
Vital Signs / I&O / Oxygen:
Vital Signs
Temp Pulse Resp BP Pulse Ox
99.3 F 124 24 101/57 97
06/05/24 07:00 06/05/24 06:00 06/05/24 06:00 06/05/24 06:00 06/05/24 07:35
Intake and Output
06/04/24 06/05/24 06/06/24
06:59 06:59 06:59
Intake Total 5680.6 / 5877.8 3986.0 / 3986.0
Output Total 874 / 904 1110 / 1110
Balance 4806.6 / 4973.8 2876.0 / 2876.0
SaO2 [A/C] 95
SaO2 97
Nasal Cannula flow liters per 60
minute
Physical Exam
General: Comfortable and Other (Left subclavian central line, lying supine)
HEENT: Normocephalic
Cardiovascular: S1-S2, Regular Rhythm (Tachycardic), Murmur (n), Rub (n), Peripheral Edema (n) and Other (Right upper extremity amputation, toe dressing)
Respiratory: Wheeze (n), Crackles (few posteriorly), Rhonchi (few), Non-Labored Respirations, Stridor (n) and ET Tube
GI: NG Tube and Other (Unable to examine during prone positioning)
Neurology: Unresponsive (Sedated)
Skin: Cyanosis (n), Jaundice (n) and Rash (n)
Labs/Micro/Reports
Lab Data
06/05/24 05:08
06/05/24 05:08
Laboratory Results
06/04/24 06/04/24 06/04/24
11:14 15:44 17:59
PT
INR
pH 7.35 7.32 L 7.36
pCO2 44 H 44 H 42 H
pO2 74 L 94 74 L
HCO3 24.3 22.7 23.7
O2 Delivery Level
06/05/24
05:08
PT 15.1 H
INR 1.14
pH
pCO2
pO2
HCO3
O2 Delivery Level
Microbiology
06/03/24 04:12 Endotracheal Respiratory Culture - Preliminary
Usual Respiratory Deneen
06/03/24 04:12 Endotracheal Gram Stain - Preliminary
06/03/24 01:46 Nasal Swab Influenza Types A & B (VICKEY) - Final
Negative for Influenza A & B, NAAT
Negative results must be combined with clinical observations
and patient history.
Nucleic Acid Amplification test (NAAT)performed on the
[employer] platform.
[2024-06-05] MEDS: NEURONTIN 400 MG TUBE ×3 (08:38→22:47)
[2024-06-05] MEDS: FLEXERIL 10 MG TUBE ×3 (08:38→22:47)
[2024-06-05] MEDS: MIRALAX 17 GRAMS TUBE (08:38)
[2024-06-05] MEDS: PROTONIX IV 40 MG IV (08:39)
[2024-06-05] MEDS: HYDROPHOR 1 APPLIC TOPICAL (08:39)
[2024-06-05] MEDS: NSS (PRESERVATIVE FREE) 10 ML IV (08:39)
[2024-06-05 09:11] LABS: Absolute Neutrophils -Man Diff 28.3 10^3/uL (1.4-6.5); Anisocytosis 1+; Band Neutrophils 11 % (0-3); Hypochromasia 1+; Lymphocytes 10 % (20-51); Macrocytosis 1+; Monocytes 3 % (2-9); Normal RBC Morphology No; Platelets Checked Yes; Segmented Neutrophils 76 % (42-75)
[2024-06-05 09:12] LABS: Target Cells 1+; Total Cells Counted 100
--- NOTE | 2024-06-05 09:15 | W.PN.ID1 ---
Date of Service
Date of Service: June 05, 2024
Today's Communication
Continue meropenem.
Assessment / Plan
Fever
Leukocytosis
- rising
- on steroids
Recurrent SBO +/- ileus
-Unclear if secondary to Crohn's versus other inflammatory bowel disease
VDRF
Suspected developing ARDS +/- aspiration PNA
- although poss. PNA, ARDS appears more likely
Profound protein calorie malnutrition (albumin = 1.6)
Anemia
Thrombocytosis
Hx Cirrhosis
Hx hepatitis C (untreated)
Recommendations:
Current clinical picture appears to be that of ARDS.
Yesterday, Zosyn was changed to meropenem. Of note, temperature curve appears improved.
Sputum culture unrevealing and positive only for normal starla.
Continue with meropenem while awaiting further culture data.
Given suspected inflammatory bowel issue, discontinue further lactobacillus.
Blood cultures thus far have been negative. Wound culture from 05/16 appears to be a superficial culture and reflects superficial colonization only.
Patient critically ill in intensive care unit, on pressors and vent support.
Prognosis poor.
Chief Complaint
-: Clinical Sepsis
Subjective / Review of Systems
Patient seen and examined. Chart reviewed. Since yesterday's exam, patient has continued to decompensate. [place] to have ARDS physiology. Patient is now proned.
Vital Signs / Physical Exam
Vital Signs
Vital Signs
Temp Pulse Resp BP Pulse Ox
99.3 F 113 24 110/72 100
06/05/24 07:00 06/05/24 07:30 06/05/24 07:30 06/05/24 07:30 06/05/24 08:00
Physical Exam
Constitutional: Acutely Ill and Chronically Ill
Oropharyngeal: Other (ET tube in place.)
Pulmonary: Coarse
Gastrointestinal: Normal Bowel Sounds
Genito-Urinary: Alva
Extremities: Edema (Diffuse body anasarca)
Skin: Warm, Dry and Jaundice; Negative Rash
Neurological: Awake and Alert
Psychological: Calm
Objective Data
Lab Data
Lab Results
06/05/24 05:08
06/05/24 05:08
PT 15.1 Sec (11.4-14.6) H 06/05/24 05:08
INR 1.14 06/05/24 05:08
APTT 29.8 Sec (23.4-35.0) 05/20/24 17:59
Estimated Creat Clear 119 ml/min 06/05/24 05:08
Lactic Acid 1.1 mmol/L (0.7-2.0) 06/03/24 02:03
Total Bilirubin 0.3 mg/dl (0.2-1.3) 06/05/24 05:08
AST 47 U/L (14-36) H 06/05/24 05:08
ALT 18 U/L (0-35) 06/05/24 05:08
Alkaline Phosphatase 212 U/L (38-126) H 06/05/24 05:08
C-Reactive Protein 64.80 mg/L (0.0-10.00) H 05/11/24 04:38
Most recent labs reviewed.
Micro Results:
06/03/24 04:12 Respiratory Culture - Preliminary
Endotracheal Usual Respiratory Starla
Gram Stain - Preliminary
06/03/24 01:46 Influenza Types A & B (VICKEY) - Final
Nasal Swab Negative for Influenza A & B, NAAT
Negative results must be combined with clinical observations
and patient history.
Nucleic Acid Amplification test (NAAT)performed on the
[employer] platform.
05/23/24 14:01 Blood Culture - Final
Blood/Venous No Growth - Final Report
05/26/24 23:16 - Final
Feces/Stool Negative for Norovirus GI and GII.
05/16/24 11:15 Wound Culture - Final
Foot - Right Serratia marcescens
Gram Stain - Final
05/16/24 11:15 Anaerobic Culture - Final
Foot - Right NO ANAEROBES ISOLATED
05/12/24 04:38 Urine Culture - Final
Urine Escherichia coli
05/11/24 22:56 MRSA Screen - Final
Nose No Methicillin Resistant Staphylococcus aureus isolated.
Imaging:
06/04/2024 CXR (portable): Stable bilateral pleural effusions, progressed. Bilateral interstitial and airspace opacities overall slightly progressed from prior exam. Findings again likely represent multifocal pneumonia versus developing ARDS.
06/03/2024 ECHO (TTE): Normal biventricular size and systolic function without regional wall motion abnormalities. EF approximately 55 to 60%. No intracardiac mass or thrombus formation is noted. Please see full dictation for additional detail.
05/17/2024 CT abdomen/pelvis with IV contrast: Significant dilatation of small bowel loops extending into the region of the distal ileum. In the pelvis there is increased enhancement of the wall of several loops of small bowel with slight stranding
of the adjacent fat with suggestion of a transition in caliber in the right pelvis as described. Findings compatible with small bowel obstruction. No evidence of free intraperitoneal air.
Care Review
Plan reviewed with: Physician (Hospitalist)
[2024-06-05 09:18] LABS: B.E. -2.9 mmol/L; HCO3 22.7 mmol/L (21-28); O2 Saturation % 93.1 % (94-98); PCO2 42 mmHg (32-35); PO2 65 mmHg (83-108); pH 7.34 (7.35-7.45)
--- NOTE | 2024-06-05 11:38 | W.PN.SURGUPD ---
Surgical Update
Surgical Update
Patient remains critically ill:
Surgery following for recurrent obstructive symptoms secondary to stricture of unclear etiology: Crohns vs ischemic
Continue NGT to suction, no enteral feedings
TPN renewed
Hypokalemia resolved, corrected Ca for low albumin is 10.1, will continue current electrolyte dosing
Lipids in TPN held as per therapeutic recreation assistant recs given ongoing use of propofol
Continue to trend labs
Tentative plan for delayed operative intervention following steroid wean and improvement in her clinical/nutritional/hepatic status. TPN renewed.
[2024-06-05 11:48] LABS: Glucose - Point of Care 127 mg/dl (70-99)
--- NOTE | 2024-06-05 12:54 | PTCARENOTE ---
Pt reassessed, levophed weaned to off, Prop titrated per BIS score of 38 -see worklist. Q2H repositioning maintained while in prone position per protocol. Dad and brother at bedside, update provided by Assembler [employer]olded Frames.
--- NOTE | 2024-06-05 13:11 | CHAP ---
Checked in on and spoke with her father, who was present. Emotional and spiritual support provided.
[2024-06-05] MEDS: SUBLIMAZE 100 MCG IV ×2 (15:39→22:43)
--- NOTE | 2024-06-05 15:44 | PTCARENOTE ---
Pt reassessed. BPs remain stable off levophed. PRN Fent bolus given for BIS score 62 after repositioning with +result. Suctioned for large amount thin clear secretions via ETT by RT Torres. Oral care provided. Safe environment maintained.
[2024-06-05] MEDS: LOVENOX 30 MG SC (17:04)
[2024-06-05 17:51] LABS: Glucose - Point of Care 121 mg/dl (70-99)
--- NOTE | 2024-06-05 20:30 | PTCARENOTE ---
Received pt prone in bed, intubated and deeply sedated on propofol and fentanyl gtts. BIS monitoring ongoing. Pupils 3mm, sluggish B/L. SR on tele, HR 80-90s. Afebrile. BP 90-100s/50s-60s, remains off levophed. +3-4 pitting generalized anasarca. #8
ETT @ 21cm moved to center. A/C 24/400/+8/100%. Spo2 99-100%. Lungs coarse with rhonchi throughout. Suctioned ETT for small amt clear thin secretions. R nare NG tube with LIWS with green output. Hypoactive bowel sounds. No BM. Temp sensing correia
draining fallon urine- see I&O. Sacral/buttocks wounds covered with foams. Tubi dynamometer mechanic removed HS. L subclav TLC with prop, fent and TPN infusing. Mouth care provided.
Orders to supinate pt. at 1999. ~2009, pt supinated with multiple RNs, RT and RISK AND INSURANCE CONSULTANT. Vec and versed pushes given prior to turning. Pt. initially desatted to 81% after supinating but recovered within 10 minutes to 99-100%.
Mother at bedside - updated on plan.
[2024-06-05] MEDS: Parenteral Nutrition, Central 1140 IV (20:54)
[2024-06-05] MEDS: REMERON 15 MG TUBE (22:47)
[2024-06-05] MEDS: MELATONIN 5 MG TUBE (22:47)
--- NOTE | 2024-06-05 23:23 | W.PN.ANS.LIN ---
Anesthesia IV & A-Line Note
IV/Arterial Line
Left Femoral Single Lumen:
Diagnosis: acute hypoxemic respiratory failure
IV Line Comments: Multiple Attempts
Comment: consent signed by pt's mother at bedside
A-Line Comments: Sterile technique as per standard protocol, Uneventful procedure, Seldinger technique used, Ultrasound guided insertion, Multiple attempts and Biopatch applied
Funtioning A-line in situ: Yes
A-line Insertion Start Time: 23:00
A-line Insertion Stop Time: 23:24
A-line in at:: 23:18
Comments: CPT code 47910
--- NOTE | 2024-06-05 23:28 | PTCARENOTE ---
Left femoral A line placed by OBEY Serra. Pt. desaturated to 78% during procedure due to lying flat. Vec and versed boluses given. Once procedure completed, able to raise HOB and pt recovered, sats now 97%. ABG obtained from A line. Otherwise, pt.
without changes. Tolerating being supine, sats have been >95%. Fio2 was weaned to 90%.
[2024-06-05 23:40] LABS: B.E. -2.5 mmol/L; HCO3 23.2 mmol/L (21-28); O2 Saturation % 89.5 % (94-98); PCO2 43 mmHg (32-35); PO2 60 mmHg (83-108); pH 7.34 (7.35-7.45)
[2024-06-05 23:53] LABS: Glucose - Point of Care 123 mg/dl (70-99)
[2024-06-06] VITALS (14 sets, daily range): BP systolic 88–115; BP diastolic 60–82; BMI 23.8
[2024-06-06] MEDS: SOLU-CORTEF 50 MG IV ×5 (00:18→23:08)
[2024-06-06] MEDS: DIPRIVAN 100 IV ×2 (00:49→10:55)
[2024-06-06] MEDS: REFRESH CELLUVISC GEL 1 DROPS OPHTH ×3 (03:24→19:40)
[2024-06-06] MEDS: LASIX 20 MG IV (03:25)
--- NOTE | 2024-06-06 03:25 | PTCARENOTE ---
Urine output dropping off over last few hours (10ml/hr). JOURNEYMAN LINEMAN notified. 20mg IV lasix ordered and given.
[2024-06-06] MEDS: STERILE WATER FOR INJECTION 10 ML IV ×5 (03:57→23:08)
[2024-06-06] MEDS: MERREM 500 MG IV ×4 (03:57→23:09)
[2024-06-06 04:19] LABS: B.E. -1.3 mmol/L; HCO3 23.7 mmol/L (21-28); O2 Saturation % 97.2 % (94-98); PCO2 40 mmHg (32-35); PO2 88 mmHg (83-108); pH 7.38 (7.35-7.45)
[2024-06-06] MEDS: DULCOLAX 10 MG RECTAL (04:20)
[2024-06-06 04:21] LABS: O2 Therapy 100%
[2024-06-06] MEDS: SUBLIMAZE 100 MCG IV ×5 (04:28→18:23)
[2024-06-06 04:30] LABS: Hematocrit 23.3 % (37.0-47.0); Hemoglobin 7.1 g/dL (12.0-16.0); Mean Corp Hgb Conc. 30.5 g/dL (33.0-37.0); Mean Corpuscular Hgb 28.6 pg (27.0-31.0); Mean Platelet Volume 11.9 fL (7.4-10.4); Platelet Count 516 10^3/uL (130-400); Red Blood Cell Count 2.48 10^6/uL (4.20-5.40); Red Cell Dist. Width 21.2 % (11.5-14.5); White Blood Cell Count 33.4 10^3/uL (4.8-10.8)
[2024-06-06] MEDS: VERSED 5 MG IV ×4 (04:31→19:41)
--- NOTE | 2024-06-06 04:32 | PTCARENOTE ---
Staff turned pt. quickly to change linens underneath. Starting coughing, dyssynchronous with vent, HR 110s, sats 90%, BIS 70. Noted to be moving head back and forth and lifting left arm off the bed. No eye opening or commands followed. Fentanyl
bolus given with moderate effect but also required versed push. Synchronous with vent again, sats increasing >94% and HR coming back down.
Has put out about 300ml since lasix dose given.
[2024-06-06 05:20] LABS: % Basophils 0.2 % (0-2); % Immature Granulocytes 4.1 % (0-0.5); % Lymphocytes 5.1 % (20.5-51.1); % Monocytes 4.8 % (1.7-9.3); % Neutrophils 85.8 % (42.2-75.2); ALT (SGPT) 19 U/L (0-35); AST (SGOT) 42 U/L (14-36); Absolute Basophils 0.1 10^3/uL (0-0.2); Absolute Immature Granulocytes 1.4 10^3/uL (0-0.05); Absolute Lymphocytes 1.7 10^3/uL (1.2-3.4); Absolute Monocytes 1.6 10^3/uL (0.1-0.6); Absolute Neutrophils 28.6 10^3/uL (1.4-6.5); Albumin 1.8 g/dl (3.5-5.0); Alkaline Phosphatase 225 U/L (38-126); Blood Urea Nitrogen 25 mg/dl (7-17); Calcium 8.4 mg/dl (8.4-10.2); Carbon Dioxide 23 mmol/L (22-30); Chloride 110 mmol/L (98-107); Estimated Creatinine Clearance 119 ml/min; Glucose 121 mg/dl (70-99); Magnesium 2.2 mg/dl (1.6-2.3); Nucleated Red Blood Cells % 0.7 %; Phosphorus 4.6 mg/dl (2.5-4.5); Potassium 4.7 mmol/L (3.5-5.1); Sodium 140 mmol/L (135-145); Total Bilirubin 0.1 mg/dl (0.2-1.3); Total Protein 5.3 g/dl (6.3-8.2); Triglycerides 122 mg/dl (10-149); eGFR > 60.00
[2024-06-06] MEDS: LASIX 40 MG IV (05:30)
[2024-06-06] MEDS: SUBLIMAZE 100 IV ×3 (05:30→23:06)
--- NOTE | 2024-06-06 07:53 | PTCARENOTE ---
Received pt intubated/sedated on lateral rotation mattress. PERRLA sluggishly reactive. +4 gross anasarca. Scleral edema. Seeping clear fluid from her left wrist and abdomen. Both with SBD saturated. Left SC TL CVC with distal port clamped, flushed
and patent. Medial port with Propofol and Fentanyl per wordlists. TPN via proximal port. +doppler DP/PT pulses. Left radial pulse intact. Left femoral Arterial line transduced and monitored, positional. #8 ETT secured 22cm. Ac 24/400/.80/+8. Breath
sounds coarse throughout. Productive cough, clear secretions. Left upper quadrant hypoactive BS. Absent right upper and both lower quadrants. She was incontinent for small loose BM. Right ischial dressing replaced due to soilage. Sacral dressing
intact. Bilateral dressings to her feet changed. Right great toe with blue sutures intact. Dressing per orders. Safe environment maintained. Will continue to monitor. Mother is at the bedside currently.
[2024-06-06] MEDS: MIRALAX 17 GRAMS TUBE (08:06)
[2024-06-06] MEDS: PROTONIX IV 40 MG IV (08:06)
[2024-06-06] MEDS: FLEXERIL 10 MG TUBE ×2 (08:06→23:07)
[2024-06-06] MEDS: NEURONTIN 400 MG TUBE ×2 (08:06→23:07)
[2024-06-06] MEDS: NSS (PRESERVATIVE FREE) 10 ML IV (08:06)
[2024-06-06] MEDS: HYDROPHOR 1 APPLIC TOPICAL (08:07)
--- NOTE | 2024-06-06 09:06 | W.PN.ID1 ---
Date of Service
Date of Service: June 06, 2024
Today's Communication
Continue meropenem for today.
Assessment / Plan
Fever
Leukocytosis
- on steroids
Recurrent SBO +/- ileus
-Unclear if secondary to Crohn's versus other inflammatory bowel disease
VDRF
Suspected ARDS
- although poss. PNA, ARDS appears more likely
Profound protein calorie malnutrition (albumin = 1.6)
Anemia
Thrombocytosis
Hx Cirrhosis
Hx hepatitis C (untreated)
Recommendations:
Current clinical picture appears to be that of ARDS.
Yesterday, Zosyn was changed to meropenem. Of note, temperature curve appears improved.
Sputum culture unrevealing; and positive only for normal starla.
Continue with meropenem for today.
Given suspected inflammatory bowel issues, would avoid probiotics.
Blood cultures thus far have been negative. Wound culture from 05/16 appears to be a superficial culture and reflects superficial colonization only.
Patient critically ill in intensive care unit on vent support.
Overall prognosis poor.
Chief Complaint
-: Clinical Sepsis
Subjective / Review of Systems
Patient seen and examined. Remains vent dependent. Continues to have ARDS�physiology. Fevers improved.
Vital Signs / Physical Exam
Vital Signs
Vital Signs
Temp Pulse Resp BP Pulse Ox
98.1 F 85 24 92/64 95
06/06/24 07:24 06/06/24 06:00 06/05/24 21:00 06/06/24 06:00 06/06/24 08:07
Physical Exam
Constitutional: Acutely Ill and Chronically Ill
Oropharyngeal: Other (ET tube in place. NG tube in place.)
Cardiovascular: Regular Rate and S1/S2; Negative S3/S4
Pulmonary: Coarse; Negative Wheezes
Gastrointestinal: Non Tender, Non Distended and Decreased Bowel Sounds
Genito-Urinary: Alva
Extremities: Edema (Diffuse body anasarca); Negative Erythema
Skin: Warm, Dry and Jaundice; Negative Rash
Neurological: Other (Sedated)
Psychological: Calm
Objective Data
Lab Data
Lab Results
06/06/24 04:04
06/06/24 04:04
PT 15.1 Sec (11.4-14.6) H 06/05/24 05:08
INR 1.14 06/05/24 05:08
APTT 29.8 Sec (23.4-35.0) 05/20/24 17:59
Estimated Creat Clear 119 ml/min 06/06/24 04:04
Lactic Acid 1.1 mmol/L (0.7-2.0) 06/03/24 02:03
Total Bilirubin 0.1 mg/dl (0.2-1.3) L 06/06/24 04:04
AST 42 U/L (14-36) H 06/06/24 04:04
ALT 19 U/L (0-35) 06/06/24 04:04
Alkaline Phosphatase 225 U/L (38-126) H 06/06/24 04:04
C-Reactive Protein 64.80 mg/L (0.0-10.00) H 05/11/24 04:38
Most recent labs reviewed.
Micro Results:
06/03/24 04:12 Respiratory Culture - Final
Endotracheal Usual Respiratory Starla
Gram Stain - Final
06/03/24 01:46 Influenza Types A & B (VICKEY) - Final
Nasal Swab Negative for Influenza A & B, NAAT
Negative results must be combined with clinical observations
and patient history.
Nucleic Acid Amplification test (NAAT)performed on the
[employer] platform.
05/23/24 14:01 Blood Culture - Final
Blood/Venous No Growth - Final Report
05/26/24 23:16 - Final
Feces/Stool Negative for Norovirus GI and GII.
05/16/24 11:15 Wound Culture - Final
Foot - Right Serratia marcescens
Gram Stain - Final
05/16/24 11:15 Anaerobic Culture - Final
Foot - Right NO ANAEROBES ISOLATED
05/12/24 04:38 Urine Culture - Final
Urine Escherichia coli
05/11/24 22:56 MRSA Screen - Final
Nose No Methicillin Resistant Staphylococcus aureus isolated.
Imaging:
06/04/2024 CXR (portable): Stable bilateral pleural effusions, progressed. Bilateral interstitial and airspace opacities overall slightly progressed from prior exam. Findings again likely represent multifocal pneumonia versus developing ARDS.
06/03/2024 ECHO (TTE): Normal biventricular size and systolic function without regional wall motion abnormalities. EF approximately 55 to 60%. No intracardiac mass or thrombus formation is noted. Please see full dictation for additional detail.
05/17/2024 CT abdomen/pelvis with IV contrast: Significant dilatation of small bowel loops extending into the region of the distal ileum. In the pelvis there is increased enhancement of the wall of several loops of small bowel with slight stranding
of the adjacent fat with suggestion of a transition in caliber in the right pelvis as described. Findings compatible with small bowel obstruction. No evidence of free intraperitoneal air.
Care Review
Plan reviewed with: Physician (Critical Care)
--- NOTE | 2024-06-06 09:55 | PTCARENOTE ---
Grand rounds @ this time. Ventilator changes made by Dr. Haines. Peep +10, RR 20. Will obtain ABG in an hour as ordered. Family is aware of transfusion of 1 unit PRBC for HGB 7.1. Safe environment maintained.
--- NOTE | 2024-06-06 10:38 | PTCARENOTE ---
Honey from [facility] notified me that on admit a midline was unsuccessful by IV team. Dr. Haines notified.
[2024-06-06 11:24] LABS: B.E. -0.8 mmol/L; HCO3 24.3 mmol/L (21-28); O2 Saturation % 94.8 % (94-98); PCO2 41 mmHg (32-35); PO2 70 mmHg (83-108); pH 7.38 (7.35-7.45)
--- NOTE | 2024-06-06 11:42 | PTCARENOTE ---
Left wrist SBD changed due to saturation with clear fluid. Lower right abdomen dressing changed due to saturation with clear fluid. Maxorb II dressing under SBD. Left femoral arterial line dressing change due to non-adhering in groin fold. Arterial
line sutured in place. Repositioned.
--- NOTE | 2024-06-06 11:48 | W.PN.INTV ---
Today's Communication / Plan
Recommendations
Mechanical ventilation setting adjusted
ABG later today
Prone positioning today
Intermittent diuresis
Continue antibiotics
Continue IV corticosteroids
TPN
Transfuse 1 unit of packed red blood cells with subsequent diuresis
Prognosis is poor
Assessment
-
34-year-old female with complex medical history including prolonged hospital stay in October 2023 for drug relapse, history of overdose/polysubstance abuse, prolonged mechanical ventilation, eventual right upper extremity amputation secondary to
necrotizing fasciitis/cellulitis, brought to [place] by mother, immediately admitted to [facility] for GI issues, followed by hospital stay at [facility] for GI issues, recurrent small bowel obstruction, recent hospital stay at
[facility] for 1 month in March 2024, treated for hepatic encephalopathy, small bowel obstruction, improved with NG tube decompression. Now returns with similar symptom complex admitted 05/11/2024 for recurrent small bowel obstruction,
pain syndrome, refusal of care at times (NG tube, PT/OT, medications), now transferred to ICU 06/02 for progressive hypoxia, bilateral infiltrates requiring intubation and mechanical ventilation
Acute hypoxic respiratory failure
Intubated 06/03/2024
Progressive bilateral infiltrates
Suspect aspiration pneumonitis
Lung injury, early ARDS
Hypotension, possible sepsis versus hypovolemia
Leukocytosis
Hypokalemia/hypomagnesemia
Recurrent small bowel obstruction
Dilated small bowel per imaging
Possible stricture, possible inflammatory bowel disease
Endoscopy at outside hospital, no definitive diagnosis of Crohn's
Chronic steroid therapy per records
Prednisone 50 mg in the past
Liver cirrhosis, hepatitis C
Untreated
Ascites with paracentesis in the past
Hepatic encephalopathy with elevated ammonia in the past
Hypoalbuminemia, severe protein/calorie malnutrition
Chronic pain syndrome
Anemia
Required transfusion x 2, last 06/02
Right great hallux osteomyelitis
Status post amputation
Conditions present prior to admission
Prolonged hospital stay October 2023, [place]
VDRF
Right upper extremity amputation secondary to necrotizing fasciitis entheses
Required HD (pt refused to continue per Father)
Anxiety disorder/bipolar disorder
Polysubstance abuse, IV drug abuse
On Suboxone in the past
Drug use intermittently since age of 15 according to father
Multiple rehabilitation efforts in the past
Chronic lower extremity weakness, sedentary/bedbound since October 2023
Plan/recommendations
Remains critically ill.
Deeply sedated with fentanyl/propofol, vecuronium as needed
No longer requiring vasopressors.
Continue with current plan:
Maintain volume-cycled ventilation -day #4
AC 24/400/8/100%
Ppk 29, Pplat 26
ABG 7.38/41/70
Chest x-ray 06/05/2024: Rotated to the left. Endotracheal tube in place. Slightly improved bilateral infiltrates. No pneumothorax.
Bilateral aspiration pneumonia noted/pneumonitis.
-
Mechanical ventilation settings will be adjusted:
Increase PEEP to 10/reduce tidal volume to 380 cc/FiO2 is 80%/respiratory rate decreased to 20
Repeat ABG in 1 hour.
-
Maintain sedation, propofol/fentanyl, vecuronium as needed-no plans for sedation breaks at this point.
Continue with nebulized epoprostenol started 06/04, wean overnight 06/05 per protocol-discontinued 06/06/2024. Tolerated.
Rotational bed
Prone position in 16 hours today-PF ratio this morning 110.
Overall suspect respiratory failure improving slowly.
Improved hemodynamics.
Norepinephrine has been weaned off.
Will discontinue IV fluids, weight significantly up, anasarca
Continue stress dose steroids, Patient was on steroids in the past
Echocardiogram with normal biventricular function, PA pressure 31
Continue with intermittent diuresis, patient is in anasarca.
Aim to keep even to slightly negative.
Continue with antibiotics for now, presently on meropenem-defer to infectious disease.
Fever curve improved
Unable to obtain cultures, poor access
Respiratory culture with usual respiratory starla
Negative influenza
Hemoglobin noted. Patient received 2 units of PRBC since hospital stay, last being 06/02
Hemoglobin 7.1, will transfuse 1 additional unit of packed red blood cells. 06/06/2024
Given risk of lung injury process, would minimize transfusion as able
Follow-up for bleeding, no evidence of active bleeding at this time
Replete electrolytes
Follow urine output
Alva catheter in place
Patient with history of dialysis for prolonged period in October 2023 while in [place]-currently normal.
Continues with TPN. Has required TPN throughout hospital stay. Unfortunate patient with protein calorie malnutrition
Hypoalbuminemia noted-patient is in anasarca.
NG tube in place, maintain to suction especially when prone
Dilated small bowel loops based on prior studies
Medications per NG tube if okay with surgery
Will need to do at some point discontinue triple-lumen catheter, this patient has been attempted to get a PICC line in the past without success.
May need to consult interventional radiology.
DVT prophylaxis: Continue with enoxaparin 30 mg. Prefer mechanical prophylaxis as well as patient is high risk for thromboembolic disease. Patient has refused in the past. Father also has taken off in the past. Continue mechanical prophylaxis
GI prophylaxis: Remains on pantoprazole
Dr. Haines Updated mother and father at bedside at length 06/06/2024. All questions answered
Prognosis is poor
-
See prior update note for transfer to tertiary care center. No clear pathway for transfer to [facility]
Family aware
Prior discussion:
Father admits that patient has been difficult, refusing therapy multiple times. She listens to him when he tells her to do it but when he leaves the room, she reverts to refusing care and therapy
He also is asking 'why are we giving her pain medicines? She is an addict?' I reviewed with father that when patient is screaming in excruciating pain, we cannot ignore this. We have to find a happy medium between controlling pain and avoiding
oversedation. This will be difficult given her drug abuse/polysubstance abuse history. Father states she has been using drugs probably since age of 15
Father also admits that patient has refused medications in the past, refuses placement of NG tube, refused nutrition when offered. Father also upset that daughter is not getting nutrition. However upon reviewing records, with every attempt to
advance diet, patient developed significant abdominal pain.
I also reviewed with father and stepmother worst-case scenario where patient progresses to multisystem organ failure, developed complication of prolonged hospital stay, prolonged mechanical ventilation such as thromboembolic disease, recurrent
infections, bleeding, cardiac complications, renal complications. He did not want to hear this but I proceeded with stepmother as father stepped away. I told the stepmother that it is important for him to be hopeful of outcome but to be aware of
potential complications.
Father confirmed full CODE STATUS
Will request records from [facility]
The above was reviewed at length with critical care nursing, respiratory care, primary service
TCCT 45 min
Subjective Dataa
Subjective Data
Date of Service:
Date of Service: June 06, 2024
Chief Complaint: Pharmacy Technology Instructor Follow Up (ARDS) and Vent Management Follow Up
Subjective:
Sedated, unable to provide
Review of Systems
General: Unobtainable - Sedation
Objective Data
Data Reviewed
Vital Signs / I&O / Oxygen:
Vital Signs
Temp Pulse Resp BP Pulse Ox
97.7 F 83 24 99/75 92
06/06/24 11:21 06/06/24 10:00 06/06/24 09:00 06/06/24 10:00 06/06/24 11:29
Intake and Output
06/05/24 06/06/24 06/07/24
06:59 06:59 06:59
Intake Total 3986.0 / 4170.7 2465.9 / 2533.5 445.5 / 445.5
Output Total 1110 / 1150 20212 600 / 600
Balance 2876.0 / 3020.7 443.9 / 251.5 -154.5 / -154.5
SaO2 [A/C] 89
SaO2 92
Nasal Cannula flow liters per 60
minute
Physical Exam
General: Comfortable and Other (Left subclavian central line, lying supine)
HEENT: Normocephalic
Cardiovascular: S1-S2, Regular Rhythm (Tachycardic), Murmur (n), Rub (n), Peripheral Edema (n) and Other (Right upper extremity amputation, toe dressing)
Respiratory: Wheeze (n), Crackles (few posteriorly), Rhonchi (few), Non-Labored Respirations, Stridor (n) and ET Tube
GI: NG Tube and Other (Unable to examine during prone positioning)
Neurology: Unresponsive (Sedated)
Skin: Cyanosis (n), Jaundice (n) and Rash (n)
Labs/Micro/Reports
Lab Data
06/06/24 04:04
06/06/24 04:04
Laboratory Results
06/05/24 06/06/24 06/06/24
23:31 04:04 11:08
pH 7.34 L 7.38 7.38
pCO2 43 H 40 H 41 H
pO2 60 L 88 70 L
HCO3 23.2 23.7 24.3
O2 Delivery Level 100%
Microbiology
06/03/24 04:12 Endotracheal Respiratory Culture - Final
Usual Respiratory Starla
06/03/24 04:12 Endotracheal Gram Stain - Final
[2024-06-06 11:58] LABS: Glucose - Point of Care 131 mg/dl (70-99)
--- NOTE | 2024-06-06 13:50 | PTCARENOTE ---
PRBC's infusing as ordered via distal port of left SC TL CVC.
--- NOTE | 2024-06-06 14:20 | PTCARENOTE ---
Increase agitation with repositioning. Moving left arm, triggering the ventilator, coughing. Fentanyl bolus administered per protocol. PRBC's infusing.
--- NOTE | 2024-06-06 14:57 | W.PN.GS2 ---
Today's Communication / Plan
-
TPN
Assessment / Plan
-
Assessment: 34 yo female with h/o IVDA presenting with recurrent obstructive symptoms secondary to stricture of unclear etiology Crohns vs ischemic. ?history of Crohn's for which she has been on steroids without much benefit as well as recent
ischemic event in October during a drug OD which is when her GI symptoms began. Recently treated for pancolitis, C. difficile toxin negative antigen positive completed course of vancomycin.
Patient remains critically ill
Severe protein calorie malnutrition
Nutrition following, adjustments made to TPN as per recs
Surgery following for recurrent obstructive symptoms secondary to stricture of unclear etiology: Crohns vs ischemic
Plan:
Continue NGT to suction, no enteral feedings
TPN renewed
Hyperphosphatemia noted: phos adjusted in TPN, corrected Ca for low albumin is within normal range will continue current dosage. Lipids adjusted based on propofol dosing.
Continue to trend labs
Tentative plan for delayed operative intervention following steroid wean and improvement in her nutrition/liver disease status.
Transfer to [facility] was previously discussed and was planned. Prior to being intubated/sedated, patient was adamantly against this and her family has respected her wish to stay here; transfer was cancelled.
Subjective Data
-
Date of Service: June 06, 2024
Patient seen and examined at bedside. Sedated and vented.
Objective Data
-
Intake and Output
06/05/24 06/06/24 06/07/24
06:59 06:59 06:59
Intake Total 3986.0 / 4170.7 2465.9 / 2533.5 745.9 / 745.9
Output Total 1110 / 1150 2021 / 2 740 / 740
Balance 2876.0 / 3020.7 443.9 / 251.5 5.9 / 5.9
Intake:
Oral fluids 0 / 0
IV fluids (Total) 2332.0 / 2468.7 743.9 / 763.5 163.9 / 163.9
Lr 1,000 ml @ 100 mls/hr IV . 1400 / 1500 100 / 100
Q10H COSME Rx#:[id number]
Norepinephrine 184.1 / 191.6 30.0 / 30.0
fent 360 / 375 342.5 / 355.0 100.0 / 100.0
prop 387.9 / 402.1 271.4 / 278.5 63.9 / 63.9
IV piggybacks 100 / 100
TPN/PPN 1164 / 1212 1152 / 1200 432 / 432
Amount instilled into GI Tube ( 390 / 390 570 / 570 150 / 150
Total)
Alpha Sump 390 / 390 570 / 570 150 / 150
Blood Product Amount Infused ( 0 / 0
mL)
Packed Rbc Leukoreduced Unit 0 / 0
[id number]
Output:
Gastrointestinal tube output ( 100 / 100 800 / 800
Total)
Alpha Sump 100 / 100 800 / 800
Urine, Alva 1010 / 1050 1222 / 1482 740 / 740
Vital Signs
Temp Pulse Resp BP Pulse Ox
97.6 F 84 24 110/62 92
06/06/24 14:02 06/06/24 14:02 06/06/24 14:02 06/06/24 14:02 06/06/24 14:02
Lab Results
06/06/24 04:04
06/06/24 04:04
Calcium 8.4 mg/dl (8.4-10.2) 06/06/24 04:04
Phosphorus 4.6 mg/dl (2.5-4.5) H 06/06/24 04:04
Magnesium 2.2 mg/dl (1.6-2.3) 06/06/24 04:04
Total Bilirubin 0.1 mg/dl (0.2-1.3) L 06/06/24 04:04
Direct Bilirubin 0.3 mg/dl (0.0-0.4) 05/11/24 04:38
AST 42 U/L (14-36) H 06/06/24 04:04
ALT 19 U/L (0-35) 06/06/24 04:04
Alkaline Phosphatase 225 U/L (38-126) H 06/06/24 04:04
Total Protein 5.3 g/dl (6.3-8.2) L 06/06/24 04:04
Albumin 1.8 g/dl (3.5-5.0) L 06/06/24 04:04
Physical Exam
-
GENERAL/NEURO: Intubated and sedated
CHEST: Unlabored breathing on vent
ABDOMEN: Soft, distended, NGT with bilious outputs.
--- NOTE | 2024-06-06 15:17 | PTCARENOTE ---
BIS continues to be >60, after repositioning and Fentanyl bolus, versed administered.
[2024-06-06] MEDS: FLEXERIL TUBE (15:49)
--- NOTE | 2024-06-06 16:00 | PTCARENOTE ---
PRBC's infused. Preparing to prone. RPT placed pt on 100% FiO2. TOF 4 twitches on 3 prior to administration of vecuronium. BIS 44. Right lower abdominal SBD dressing changed prior to prone positioning. Protective foam dressings applied to right
shoulder, bilateral nipples, & under left femoral arterial line tubing on her thigh. SBD intact on her knees and left wrist. She was medicated with fentanyl and vecuronium @ 1615 when TOF was 2 out of 4 twitches on 3. BIS removed from forehead for
prone positioning. Suctioned and mouth care performed. @ 1630 she was safely placed in prone position. Z-flow pillow placed under her head with care to bony prominences. All lines intact, ETT unchanged. Eyes remain closed. Safe environment
maintained. Warm blankets provided.
--- NOTE | 2024-06-06 16:12 | CM ---
CM reviewed chart, patient remains intubated. Remains on antibiotics. Plan of care ongoing. CM will continue to follow for all discharge planning needs.
Plan: will depend on patients needs at time of discharge.
[2024-06-06] MEDS: NORCURON 6 MG IV (16:15)
--- NOTE | 2024-06-06 16:19 | W.PN.HOSP.TC ---
Today's Communication/Plan
-
Antibiotics for today
Plan for prone positioning today, hours determined by physician advisor
Sedation as needed, pelvis as needed
Goal slight net negative, diuretics as needed, dose daily
Continue IV steroids
TPN
Assessment / Plan
Assessment / Plan
Gen-sedated, intubated, prone
HEENT-NC, AT, anicteric, clear oral mm
Neck-supple
CV-reg, no M, +S1/S2, tachy
Lungs-clear B/L
Abd-soft, NT, ND
Ext-no edema
Musculoskeletal-no cyanosis, clubbing, bilateral foot drop
Skin-warm and dry
Acute hypoxic respiratory failure
-unfortunately worsening respiratory failure and now has ARDS physiology. LIkely 2/2 to aspiration pneumonitis
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
-patient refused transfer to [facility] prior to intubation as per records and POA, despite initially possibly an ECMO candidate
-Prone positioning per protocol. PF ratio this morning 110
�Continue AC/VC
� Continue ventilator settings, adjust as necessary�should follow ARDSnet weaning as per pulmonary once able
� Continue sedation, paralytics as needed if bucking the vent
� Status post nebulized epoprostenol, completed today
�Maintain euvolemia, slight net negative
Septic shock versus hypovolemia
��Possibly secondary to pneumonia/ARDS
�Vasopressors weaned off
� Continue stress dose steroids, patient was on steroids in the past
� Wean steroids as tolerated
� Intermittent diuresis now with anasarca
�Continue meropenem for today
�ID consulted
#Recurrent SBO
-unclear etiology of bowel obstruction, perhaps ischemia induced strictures.
- She does not have a confirmed diagnosis of inflammatory bowel disease.
-High risk for operative intervention per surgical service given low prealbumin level, severe malnutrition and cirrhosis.
- Prealbumin remains low despite ongoing TPN. Last prealbumin was 5.2. Discussed with Dr. Godwin. I am not sure prealbumin is reliable in the setting of her underlying cirrhosis, critical illness.
-NG tube with minimal output. Continue suction
�TPN
� Trend labs�tentative plan for delayed operative intervention following steroid wean improvement in her nutritional/liver disease status
Intractable pain syndrome -
-complaining of severe bilateral lower extremity pain and muscle cramps which is chronic.
-Was on IV Dilaudid every 4 hours as needed prior to intubation.
-Currently on fentanyl IV as needed.
Pancolitis
-C. difficile antigen positive toxin negative recently treated with oral vancomycin.
Cirrhosis secondary to untreated hepatitis C.
Hepatic encephalopathy
Recurrent ascites.
Anasarca
Severe protein/calorie malnutrition -continue TPN.
Hypovolemic hyponatremia -resolved.
Hypokalemia -improved.
Acute on chronic anemia
-Transfused 3 units of blood so far this admission.
- No obvious evidence of bleeding.
-Doubt hemolysis with normal bilirubin.
- Given positive fluid status of 4.8 L, suspect hemodilution induced anemia due to IV fluid administration. Monitor hemoglobin for now. Transfuse if below 7.
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
Polysubstance abuse, former IVDA on Suboxone.
Anxiety disorder
Multiple skin breakdowns
Chronic bilateral lower extremity weakness, bedbound status
History of IVDA
Full code
Dispo: Father who is the POA is at the bedside today and he states that he does not want her transferred under any circumstances to [facility]. He understands that she could potentially deteriorate and in our hospital. In
addition, he states that Miriam also does not want to be transferred to [facility].; Isolation Washer explained potential deterioration including multiorgan failure to family.
Total time spent on today's encounter was 50 minutes which included time spent in counseling the patient/family regarding diagnosis and treatment plan as listed above, goals of care, and symptom management. Case was discussed with nursing staff,
specialists, and care coordinators/case management. All labs and imaging personally reviewed by me. Remainder the time spent in detailed review of previous records, lab data, imaging, and other medical provider documentation.
Anticipated Discharge: > 48 hours
Subjective/Interval History
-
Date of Service: June 06, 2024
Completed 16 hours of prone and 8 hours supine. Plan again for proning today. Continued on mechanical ventilation
Objective Data
-
Labs:
Laboratory Results
06/06/24 06/06/24
04:04 11:08
WBC 33.4 H
Hgb 7.1 L
Hct 23.3 L
Plt Count 516 H
HCO3 23.7 24.3
Sodium 140
Potassium 4.7
Chloride 110 H
Carbon Dioxide 23
BUN 25 H
Creatinine 0.3 L
Glucose 121 H
Calcium 8.4
Total Bilirubin 0.1 L
AST 42 H
ALT 19
Alkaline Phosphatase 225 H
Vital Signs:
Vital Signs
Temp Pulse Resp BP Pulse Ox
97.6 F 84 24 110/62 93
06/06/24 15:23 06/06/24 14:02 06/06/24 14:02 06/06/24 14:02 06/06/24 15:30
I&O
06/05/24 06/06/24 06/07/24
06:59 06:59 06:59
Intake Total 3986.0 / 4170.7 2465.9 / 2533.5 745.9 / 745.9
Output Total 1110 / 1150 2021 / 2282 740 / 740
Balance 2876.0 / 3020.7 443.9 / 251.5 5.9 / 5.9
Review of Systems
-
History Source: Patient
All other systems: Not reviewed unless documented
Data Reviewed
-
Diagnostic Radiology: Report Reviewed by me
CT Scan: Report Reviewed by me
Labs: Labs Reviewed by me
--- NOTE | 2024-06-06 16:43 | PTOTSP ---
will need new OT/PT eval orders after extubated
[2024-06-06] MEDS: NEURONTIN TUBE (16:57)
[2024-06-06 18:05] LABS: Glucose - Point of Care 133 mg/dl (70-99)
[2024-06-06] MEDS: LOVENOX 30 MG SC (18:22)
--- NOTE | 2024-06-06 18:33 | SUR.PHASEI ---
Pt's mother in the room, stroking her head and talking to her. Fentanyl bolus administered and she was informed of the importance to allow her to rest to ventilate.
--- NOTE | 2024-06-06 20:30 | RESPNOTE ---
PT's head was turned from prone/facing left to prone/facing right. PT was bagged during the head turned and placed back on the vent. PT was suctioned at this time for a moderate amt of thick white/yellow secretions. ETT was moved to the right lip.
[2024-06-06] MEDS: Parenteral Nutrition, Central 1310 IV (21:36)
--- NOTE | 2024-06-06 21:55 | RESPNOTE ---
PT's head was turned from prone/facing right to prone/facing left while being bagged. PT tolerated turn well and ETT was moved to the left lip at this time. ETT was suctioned for a moderate amt of thick lantigua secretions.
--- NOTE | 2024-06-06 22:31 | PTCARENOTE ---
Pt received at 19:00, intubated, sedated, and in prone position. Pt is sedated on fentanyl and propofol, RASS goal -3 to -5, currently -4. #8 ETT @ 22cm. ETT repositioned with q2h head turn. AC 20/380/60%/+10. RR 22-26, peak pressures 21-28 mid 30s
when repositioning. Coarse/rhonchi t/o. SR, HR 80s. L femoral a-line present and correlating with cuff pressure. +4 anasarca, scleral edema. Pt prone, bowel sounds distant and hypoactive. NGT to LIWS with green bilious output. Alva with fallon
urine, 15-30ml/hr.
[2024-06-06] MEDS: REMERON 15 MG TUBE (23:07)
[2024-06-06] MEDS: MELATONIN 5 MG TUBE (23:09)
[2024-06-07] VITALS (9 sets, daily range): BP systolic 100–126; BP diastolic 66–97; BMI 25.1
--- NOTE | 2024-06-07 | RESPNOTE ---
PT's head was turned from prone/facing left to prone/facing right and tolerated the turn well. PT was bagged during the turn and placed back on the vent afterwards.
[2024-06-07 00:09] LABS: Glucose - Point of Care 124 mg/dl (70-99)
[2024-06-07] MEDS: VERSED 5 MG IV ×4 (00:32→18:04)
--- NOTE | 2024-06-07 02:05 | RESPNOTE ---
PT's head was turned form prone/facing right to prone facing left at this time, while being bagged. PT tolerated well and was placed back on the vent.
[2024-06-07] MEDS: SUBLIMAZE 100 MCG IV ×7 (02:14→16:24)
[2024-06-07 03:44] LABS: B.E. 0 mmol/L; HCO3 24.8 mmol/L (21-28); O2 Saturation % 95.8 % (94-98); PCO2 40 mmHg (32-35); PO2 75 mmHg (83-108)
[2024-06-07 03:47] LABS: O2 Therapy 80
[2024-06-07 04:08] LABS: Blood Urea Nitrogen 39 mg/dl (7-17); Calcium 8.6 mg/dl (8.4-10.2); Carbon Dioxide 26 mmol/L (22-30); Chloride 112 mmol/L (98-107); Estimated Creatinine Clearance 119 ml/min; Glucose 137 mg/dl (70-99); Potassium 5.1 mmol/L (3.5-5.1); Sodium 141 mmol/L (135-145); eGFR > 60.00
[2024-06-07 04:10] LABS: Hematocrit 27.9 % (37.0-47.0); Mean Corp Hgb Conc. 32.3 g/dL (33.0-37.0); Mean Corpuscular Hgb 29.1 pg (27.0-31.0); Mean Corpuscular Volume 90.3 fL (81.0-99.0); Mean Platelet Volume 11.8 fL (7.4-10.4); Platelet Count 382 10^3/uL (130-400); Red Blood Cell Count 3.09 10^6/uL (4.20-5.40); Red Cell Dist. Width 20.2 % (11.5-14.5)
--- NOTE | 2024-06-07 04:35 | RESPNOTE ---
PT's head was turned from prone/facing left to prone/facing right while being bagged. She tolerated well and was placed back on the vent.
[2024-06-07] MEDS: STERILE WATER FOR INJECTION 10 ML IV ×4 (04:42→21:12)
[2024-06-07] MEDS: MERREM 500 MG IV ×4 (04:42→21:12)
--- NOTE | 2024-06-07 05:38 | PTCARENOTE ---
Pt assessment unchanged. Tolerating head turns with PRNs. Safe environment maintained.
[2024-06-07] MEDS: SOLU-CORTEF 50 MG IV ×3 (06:03→21:38)
--- NOTE | 2024-06-07 06:05 | RESPNOTE ---
PT's head was turned from prone/facing left to prone/facing right while bagged and tolerated well. PT was placed back on the vent after and suctioned for a moderate amt of thick lantigua secretions and clear thick oral secretions.
[2024-06-07 06:13] LABS: Glucose - Point of Care 123 mg/dl (70-99)
[2024-06-07] MEDS: DIPRIVAN 100 IV ×3 (07:27→23:33)
[2024-06-07] MEDS: SUBLIMAZE 100 IV ×3 (07:27→23:33)
--- NOTE | 2024-06-07 07:58 | PTCARENOTE ---
Pt received at 07:15, intubated, sedated, and in prone position. Vent alarming-for dysyncrony, pt medicated with PRN Fent. See AUG. Pt is sedated on fentanyl and propofol, RASS goal -3 to -5, currently -4. #8 ETT @ 22cm. AC 20/380/40%/+10. SR, HR
70s. L femoral a-line present and correlating with cuff pressure. +4 anasarca, scleral edema. Pt prone, bowel sounds distant and hypoactive. NGT to LIWS with green bilious output. Alva with fallon urine, 15-30ml/hr. Orders reviewed, safe environment
maintained.
[2024-06-07] MEDS: FLEXERIL 10 MG TUBE ×3 (08:12→21:13)
[2024-06-07] MEDS: MIRALAX 17 GRAMS TUBE (08:12)
[2024-06-07] MEDS: REFRESH CELLUVISC GEL 1 DROPS OPHTH ×2 (08:12→21:13)
[2024-06-07] MEDS: PROTONIX IV 40 MG IV (08:12)
[2024-06-07] MEDS: HYDROPHOR 1 APPLIC TOPICAL (08:13)
[2024-06-07] MEDS: NSS (PRESERVATIVE FREE) 10 ML IV (08:13)
[2024-06-07] MEDS: NEURONTIN 400 MG TUBE ×3 (08:13→21:13)
--- NOTE | 2024-06-07 08:41 | W.PN.INTV ---
Today's Communication / Plan
Recommendations
Continue mechanical ventilation
Continue to decrease FiO2 as able, once FiO2 60% then will decrease PEEP
Continue heavy sedation and intermittent paralysis
Nutrition via TPN due to GI issues
Follow hemoglobin
Start diuresis today 20 mg daily
Continue antibiotics
Poor prognosis
Assessment
-
34-year-old female with complex medical history including prolonged hospital stay in October 2023 for drug relapse, history of overdose/polysubstance abuse, prolonged mechanical ventilation, eventual right upper extremity amputation secondary to
necrotizing fasciitis/cellulitis, brought to [place] by mother, immediately admitted to [facility] for GI issues, followed by hospital stay at [facility] for GI issues, recurrent small bowel obstruction, recent hospital stay at
[facility] for 1 month in March 2024, treated for hepatic encephalopathy, small bowel obstruction, improved with NG tube decompression. Now returns with similar symptom complex admitted 05/11/2024 for recurrent small bowel obstruction,
pain syndrome, refusal of care at times (NG tube, PT/OT, medications), now transferred to ICU 06/02 for progressive hypoxia, bilateral infiltrates requiring intubation and mechanical ventilation
Acute hypoxic respiratory failure-ARDS post aspiration.
Intubated 06/03/2024
Progressive bilateral infiltrates
Suspect aspiration pneumonitis
Lung injury, early ARDS
Hypotension, possible sepsis versus hypovolemia
Leukocytosis
Hypokalemia/hypomagnesemia
Recurrent small bowel obstruction
Dilated small bowel per imaging
Possible stricture, possible inflammatory bowel disease
Endoscopy at outside hospital, no definitive diagnosis of Crohn's
Chronic steroid therapy per records
Prednisone 50 mg in the past
Liver cirrhosis, hepatitis C
Untreated
Ascites with paracentesis in the past
Hepatic encephalopathy with elevated ammonia in the past
Hypoalbuminemia, severe protein/calorie malnutrition
Chronic pain syndrome
Anemia
Required transfusion x 2, last 06/02
Right great hallux osteomyelitis
Status post amputation
Conditions present prior to admission
Prolonged hospital stay October 2023, [place]
VDRF
Right upper extremity amputation secondary to necrotizing fasciitis entheses
Required HD (pt refused to continue per Father)
Anxiety disorder/bipolar disorder
Polysubstance abuse, IV drug abuse
On Suboxone in the past
Drug use intermittently since age of 15 according to father
Multiple rehabilitation efforts in the past
Chronic lower extremity weakness, sedentary/bedbound since October 2023
Plan/recommendations
Remains critically ill.
Deeply sedated with fentanyl/propofol, vecuronium as needed
No longer requiring vasopressors.
Continue with current plan:
Maintain volume-cycled ventilation -day #5
AC 20/380/10/80%
Ppk 26, Pplat 24
ABG 06/07/2024: 7.4/40/75
ABG 7.38/41/70 (06/06/2024)
Chest x-ray 06/05/2024: Rotated to the left. Endotracheal tube in place. Slightly improved bilateral infiltrates. No pneumothorax.
Will obtain chest x-ray after patient is on supine position.
FiO2 will be decreased to 65%. Will continue to decrease as able. Maintain pulse ox above 90%.
-
Maintain sedation, propofol/fentanyl, vecuronium as needed-no plans for sedation breaks at this point.
Currently overbreathing the ventilator, tolerating without oxygen desaturation.
Status post nebulized epoprostenol started 06/04, wean overnight 06/05 per protocol-discontinued 06/06/2024. Tolerated.
Rotational bed
Status post proning 06/06/2024, supine position shingle carrier 06/07/2024.
No plans for prone positioning tonight. Oxygenation and pulmonary mechanics improving.
Overall suspect respiratory failure improving slowly.
Improved hemodynamics.
Not requiring vasopressors.
Hold IV fluids.
Continue IV hydrocortisone, will decrease to every 8 hours. Has not required vasopressors.
Echocardiogram with normal biventricular function, PA pressure 31
Start Lasix 20 mg IV now and then daily. Hopefully can maintain even to slightly negative fluid balance.
Continue with antibiotics for now, presently on meropenem-defer to infectious disease.
Fever curve improved/leukocytosis remain at 30,000.
Unable to obtain cultures, poor access
Respiratory culture with usual respiratory starla
Negative influenza
Hemoglobin noted. Patient received 2 units of PRBC since hospital stay, last being 06/02
Hemoglobin 7.1, status post transfusion 06/06/2024-hemoglobin today is 9.
Given risk of lung injury process, would minimize transfusion as able
Follow-up for bleeding, no evidence of active bleeding at this time
Follow urine output-renal function is normal.
Alva catheter in place
Patient with history of dialysis for prolonged period in October 2023 while in [place].
Continues with TPN. Has required TPN throughout hospital stay. Unfortunate patient with protein calorie malnutrition
Hypoalbuminemia noted-patient is in anasarca.
NG tube in place, maintain to suction especially when prone
Dilated small bowel loops based on prior studies
Medications per NG tube if okay with surgery
Will need to do at some point discontinue triple-lumen catheter, this patient has been attempted to get a PICC line in the past without success.
May need to consult interventional radiology.
DVT prophylaxis: Continue with enoxaparin 30 mg. Prefer mechanical prophylaxis as well as patient is high risk for thromboembolic disease. Patient has refused in the past. Father also has taken off in the past. Continue mechanical prophylaxis
GI prophylaxis: Remains on pantoprazole
Dr. Haines Updated mother and father at bedside at length 06/06/2024, 06/07/2024. All questions answered
Prognosis continues to be very poor.
-
See prior update note for transfer to tertiary care center. No clear pathway for transfer to [facility]
Family aware
Prior discussion:
Father admits that patient has been difficult, refusing therapy multiple times. She listens to him when he tells her to do it but when he leaves the room, she reverts to refusing care and therapy
He also is asking 'why are we giving her pain medicines? She is an addict?' I reviewed with father that when patient is screaming in excruciating pain, we cannot ignore this. We have to find a happy medium between controlling pain and avoiding
oversedation. This will be difficult given her drug abuse/polysubstance abuse history. Father states she has been using drugs probably since age of 15
Father also admits that patient has refused medications in the past, refuses placement of NG tube, refused nutrition when offered. Father also upset that daughter is not getting nutrition. However upon reviewing records, with every attempt to
advance diet, patient developed significant abdominal pain.
I also reviewed with father and stepmother worst-case scenario where patient progresses to multisystem organ failure, developed complication of prolonged hospital stay, prolonged mechanical ventilation such as thromboembolic disease, recurrent
infections, bleeding, cardiac complications, renal complications. He did not want to hear this but I proceeded with stepmother as father stepped away. I told the stepmother that it is important for him to be hopeful of outcome but to be aware of
potential complications.
Father confirmed full CODE STATUS
Will request records from [facility]
The above was reviewed at length with critical care nursing, respiratory care, primary service
Critical care statement: A total of 45 minutes of critical care time was provided for this patient today. This includes management of unstable vital signs, evaluation of the patient at bedside, reviewing the patient's pertinent medical records
including ventilator settings, arterial blood gases, radiographs, microbiology, laboratory evaluations and discussion with primary team, critical care nursing, and respiratory therapy.
Subjective Dataa
Subjective Data
Date of Service:
Date of Service: June 07, 2024
Chief Complaint: Launch Manager Follow Up (ARDS) and Vent Management Follow Up
Subjective:
Remains critically ill, heavily sedated, on mechanical ventilation
Review of Systems
General: Unobtainable - Sedation
Objective Data
Data Reviewed
Vital Signs / I&O / Oxygen:
Vital Signs
Temp Pulse Resp BP Pulse Ox
98.4 F 85 24 126/93 93
06/07/24 07:00 06/07/24 04:00 06/07/24 04:00 06/07/24 04:00 06/07/24 08:00
Intake and Output
06/06/24 06/07/24 06/08/24
06:59 06:59 06:59
Intake Total 2465.9 / 2533.5 2140.5 / 2215.1 149.2 / 149.2
Output Total 2021 / 2281 1410 / 1430 37 / 37
Balance 443.9 / 251.5 730.5 / 785.1 112.2 / 112.2
SaO2 [A/C] 93
SaO2 92
Nasal Cannula flow liters per 60
minute
Physical Exam
General: Comfortable and Other (Left subclavian central line, lying supine)
HEENT: Normocephalic
Cardiovascular: S1-S2, Regular Rhythm (Tachycardic), Murmur (n), Rub (n), Peripheral Edema (n) and Other (Right upper extremity amputation, toe dressing)
Respiratory: Wheeze (n), Crackles (few posteriorly), Rhonchi (few), Non-Labored Respirations, Stridor (n) and ET Tube
GI: NG Tube and Other (Unable to examine during prone positioning)
Neurology: Unresponsive (Sedated)
Skin: Cyanosis (n), Jaundice (n) and Rash (n)
Labs/Micro/Reports
Lab Data
06/07/24 03:34
06/07/24 03:34
Laboratory Results
06/06/24 06/07/24
11:08 03:34
pH 7.38 7.40
pCO2 41 H 40 H
pO2 70 L 75 L
HCO3 24.3 24.8
O2 Delivery Level 80
Microbiology
06/03/24 04:12 Endotracheal Respiratory Culture - Final
Usual Respiratory Starla
06/03/24 04:12 Endotracheal Gram Stain - Final
--- NOTE | 2024-06-07 08:45 | PTCARENOTE ---
Addendum entered by Marleni Saha RN 06/07/24 10:14:
Propofol gtt titrated up per Siding Stapler recommendation for agitation with turn.
Addendum entered by Marleni Saha RN 06/07/24 10:05:
Pt was turned from prone to supine safely at 08:45. Vent settings adjusted by Siding Stapler, pt tolerating AC 20/38/65%/10 satting 99%. Pt did require Fent bolus for agitation with turn, see MAR. Percy Pradhan at bedside, updated by Siding Stapler. Oral
care, CHG bath, and correia care completed, meds and assessemnt as documented.
Original Note:
Pt
--- NOTE | 2024-06-07 09:03 | W.PN.ID1 ---
Date of Service
Date of Service: June 07, 2024
Today's Communication
Critical Care
Assessment / Plan
Fever
- appears resolved. ?drug fever from zosyn, ?ARDS
Leukocytosis
- on steroids
Recurrent SBO +/- ileus
-Unclear if secondary to Crohn's versus other inflammatory bowel disease
VDRF
ARDS 2* Asp PNA
Profound protein calorie malnutrition (albumin = 1.6)
Anemia
Thrombocytosis
Hx Cirrhosis
Hx hepatitis C (untreated)
Hx IVDA
Recommendations:
Sputum culture unrevealing; and positive only for normal starla.
Continue with meropenem for today.
Given suspected inflammatory bowel issues, would avoid probiotics.
Blood cultures thus far have been negative. Wound culture from 05/16 appears to be a superficial culture and reflects superficial colonization only.
Patient critically ill in intensive care unit on vent support.
Overall prognosis appears progressively dismal.
Chief Complaint
-: Clinical Sepsis
Subjective / Review of Systems
Pt seen / examined. Remains on vent at present. Continues to require proning.
Vital Signs / Physical Exam
Vital Signs
Vital Signs
Temp Pulse Resp BP Pulse Ox
98.4 F 85 24 126/93 93
06/07/24 07:00 06/07/24 04:00 06/07/24 04:00 06/07/24 04:00 06/07/24 08:00
Physical Exam
Constitutional: Acutely Ill and Chronically Ill
Oropharyngeal: Other (ET tube in place. NG tube in place.)
Cardiovascular: Regular Rate and S1/S2; Negative S3/S4
Pulmonary: Coarse (throughout); Negative Wheezes
Gastrointestinal: Non Tender, Non Distended and Decreased Bowel Sounds
Genito-Urinary: Alva
Extremities: Edema (Diffuse body anasarca); Negative Erythema
Skin: Warm, Dry and Jaundice; Negative Rash
Neurological: Other (Sedated)
Psychological: Calm
Objective Data
Lab Data
Lab Results
06/07/24 03:34
06/07/24 03:34
PT 15.1 Sec (11.4-14.6) H 06/05/24 05:08
INR 1.14 06/05/24 05:08
APTT 29.8 Sec (23.4-35.0) 05/20/24 17:59
Estimated Creat Clear 119 ml/min 06/07/24 03:34
Lactic Acid 1.1 mmol/L (0.7-2.0) 06/03/24 02:03
Total Bilirubin 0.1 mg/dl (0.2-1.3) L 06/06/24 04:04
AST 42 U/L (14-36) H 06/06/24 04:04
ALT 19 U/L (0-35) 06/06/24 04:04
Alkaline Phosphatase 225 U/L (38-126) H 06/06/24 04:04
C-Reactive Protein 64.80 mg/L (0.0-10.00) H 05/11/24 04:38
Most recent labs reviewed.
Micro Results:
06/03/24 04:12 Respiratory Culture - Final
Endotracheal Usual Respiratory Starla
Gram Stain - Final
06/03/24 01:46 Influenza Types A & B (VICKEY) - Final
Nasal Swab Negative for Influenza A & B, NAAT
Negative results must be combined with clinical observations
and patient history.
Nucleic Acid Amplification test (NAAT)performed on the
[employer] platform.
05/23/24 14:01 Blood Culture - Final
Blood/Venous No Growth - Final Report
05/26/24 23:16 - Final
Feces/Stool Negative for Norovirus GI and GII.
05/16/24 11:15 Wound Culture - Final
Foot - Right Serratia marcescens
Gram Stain - Final
05/16/24 11:15 Anaerobic Culture - Final
Foot - Right NO ANAEROBES ISOLATED
05/12/24 04:38 Urine Culture - Final
Urine Escherichia coli
05/11/24 22:56 MRSA Screen - Final
Nose No Methicillin Resistant Staphylococcus aureus isolated.
Imaging:
06/04/2024 CXR (portable): Stable bilateral pleural effusions, progressed. Bilateral interstitial and airspace opacities overall slightly progressed from prior exam. Findings again likely represent multifocal pneumonia versus developing ARDS.
06/03/2024 ECHO (TTE): Normal biventricular size and systolic function without regional wall motion abnormalities. EF approximately 55 to 60%. No intracardiac mass or thrombus formation is noted. Please see full dictation for additional detail.
05/17/2024 CT abdomen/pelvis with IV contrast: Significant dilatation of small bowel loops extending into the region of the distal ileum. In the pelvis there is increased enhancement of the wall of several loops of small bowel with slight stranding
of the adjacent fat with suggestion of a transition in caliber in the right pelvis as described. Findings compatible with small bowel obstruction. No evidence of free intraperitoneal air.
[2024-06-07] MEDS: LASIX 20 MG IV (09:29)
--- NOTE | 2024-06-07 12:07 | PTCARENOTE ---
Pt reassessed. Sa02 remains 93% on AC /.65/10. Oral care provided, ETT repositioned to right side. CXR was completed after pt turned to supine position. Mother left to go home for shower. Q2T and repositioning maintained.
[2024-06-07 12:13] LABS: Glucose - Point of Care 134 mg/dl (70-99)
--- NOTE | 2024-06-07 12:42 | PTCARENOTE ---
Urine output s/p IV Lasix administration 495 mls between 11:00-13:00.
--- NOTE | 2024-06-07 13:09 | W.PN.GS2 ---
Today's Communication / Plan
-
-- TPN renewed
Assessment / Plan
-
Assessment: 34 yo female with h/o IVDA presenting with recurrent obstructive symptoms secondary to stricture of unclear etiology Crohns vs ischemic. ?history of Crohn's for which she has been on steroids without much benefit as well as recent
ischemic event in October during a drug OD which is when her GI symptoms began. Recently treated for pancolitis, C. difficile toxin negative antigen positive completed course of vancomycin.
Patient remains critically ill
Severe protein calorie malnutrition
Nutrition following, adjustments made to TPN as per recs
Surgery following for recurrent obstructive symptoms secondary to stricture of unclear etiology: Crohns vs ischemic
Plan:
-- Continue NGT to suction, no enteral feedings
-- TPN renewed
-- Continue to trend labs
-- Tentative plan for delayed operative intervention following steroid wean and improvement in her nutrition/liver disease status.
Transfer to [facility] was previously discussed and was planned. Prior to being intubated/sedated, patient was adamantly against this and her family has respected her wish to stay here; transfer was cancelled.
Subjective Data
-
Date of Service: June 07, 2024
Intubated and sedated.
Objective Data
-
Intake and Output
06/06/24 06/07/24 06/08/24
06:59 06:59 06:59
Intake Total 2465.9 / 2533.5 2140.5 / 2215.1 779.7 / 779.7
Output Total 2021 1410 / 1430 589 / 589
Balance 443.9 / 251.5 730.5 / 785.1 190.7 / 190.7
Intake:
IV fluids (Total) 743.9 / 763.5 477.5 / 497.1 154.7 / 154.7
Lr 1,000 ml @ 100 mls/hr IV . 100 / 100
Q10H COSME Rx#:[id number]
Norepinephrine 30.0 / 30.0
fent 342.5 / 355.0 300.0 / 312.5 87.5 / 87.5
prop 271.4 / 278.5 177.5 / 184.6 67.2 / 67.2
TPN/PPN 1152 / 1200 1263 / 1318 385 / 385
Amount instilled into GI Tube ( 570 / 570 150 / 150 240 / 240
Total)
Homer Sump 570 / 570 150 / 150 240 / 240
Blood Product Amount Infused ( 250 / 250
mL)
Packed Rbc Leukoreduced Unit 250 / 250
[id number]
Output:
Gastrointestinal tube output ( 800 / 800 350 / 350
Total)
Homer Sump 800 / 800 350 / 350
Urine, Alva 1222 / 1482 1060 / 1080 589 / 589
Vital Signs
Temp Pulse Resp BP Pulse Ox
97.3 F 75 27 117/90 94
06/07/24 11:00 06/07/24 12:00 06/07/24 12:00 06/07/24 12:00 06/07/24 12:00
Lab Results
06/07/24 03:34
06/07/24 03:34
Calcium 8.6 mg/dl (8.4-10.2) 06/07/24 03:34
Phosphorus 4.6 mg/dl (2.5-4.5) H 06/06/24 04:04
Magnesium 2.2 mg/dl (1.6-2.3) 06/06/24 04:04
Total Bilirubin 0.1 mg/dl (0.2-1.3) L 06/06/24 04:04
Direct Bilirubin 0.3 mg/dl (0.0-0.4) 05/11/24 04:38
AST 42 U/L (14-36) H 06/06/24 04:04
ALT 19 U/L (0-35) 06/06/24 04:04
Alkaline Phosphatase 225 U/L (38-126) H 06/06/24 04:04
Total Protein 5.3 g/dl (6.3-8.2) L 06/06/24 04:04
Albumin 1.8 g/dl (3.5-5.0) L 06/06/24 04:04
Physical Exam
-
Gen: Intubated and sedated
HEENT: NGT with bilious outputs
Abd: soft, minimal distension, no wincing
--- NOTE | 2024-06-07 14:17 | W.PN.HOSP.TC ---
Today's Communication/Plan
-
Wean O2 as tolerated
Gentle diuresis, goal slight net negative, monitor serum creatinine
Can maintain hydrocortisone dosing for today, anticipate further weaning tomorrow
Continue to antibiotics for today
Monitor bowel function, continue TPN, NG tube
Assessment / Plan
Assessment / Plan
Gen-sedated, intubated, prone
HEENT-NC, AT, anicteric, clear oral mm
Neck-supple
CV-reg, no M, +S1/S2, tachy
Lungs-clear B/L
Abd-soft, NT, ND
Ext-no edema
Musculoskeletal-no cyanosis, clubbing, bilateral foot drop
Skin-warm and dry
Acute hypoxic respiratory failure
-unfortunately worsening respiratory failure and now has ARDS physiology. LIkely 2/2 to aspiration pneumonitis
-Intubated naturopathic physician 06/03 for respiratory failure.
-patient refused transfer to [place] prior to intubation as per records and POA, despite initially possibly an ECMO candidate
-Prone positioning per protocol. Now supinated, PF ratio improving. FiO2 requirement improved to 65%. No plans of proning at this time
�Continue AC/VC
� Continue ventilator settings, adjust as necessary�should follow ARDSnet weaning as per pulmonary once able
� Continue sedation, paralytics as needed if bucking the vent
� Status post nebulized epoprostenol, completed today
�Maintain euvolemia, slight net negative - diuretics dailty
Septic shock
��Possibly secondary to pneumonia/ARDS
�Vasopressors weaned off
� Continue stress dose steroids, patient was on steroids in the past - wean
� Wean steroids as tolerated
� Intermittent diuresis now with anasarca
�Continue meropenem for today
�ID consulted
#Recurrent SBO
-unclear etiology of bowel obstruction, perhaps ischemia induced strictures.
- She does not have a confirmed diagnosis of inflammatory bowel disease.
-High risk for operative intervention per surgical service given low prealbumin level, severe malnutrition and cirrhosis.
- Prealbumin remains low despite ongoing TPN. Last prealbumin was 5.2. Discussed with Dr. Godwin. I am not sure prealbumin is reliable in the setting of her underlying cirrhosis, critical illness.
-NG tube with minimal output. Continue suction; minimal bowel sounds
�TPN
� Trend labs�tentative plan for delayed operative intervention following steroid wean improvement in her nutritional/liver disease status
Intractable pain syndrome -
-complaining of severe bilateral lower extremity pain and muscle cramps which is chronic.
-Was on IV Dilaudid every 4 hours as needed prior to intubation.
-Currently on fentanyl IV as needed.
Pancolitis
-C. difficile antigen positive toxin negative recently treated with oral vancomycin.
Cirrhosis secondary to untreated hepatitis C.
Hepatic encephalopathy
Recurrent ascites.
Anasarca
Severe protein/calorie malnutrition -continue TPN.
Hypovolemic hyponatremia -resolved.
Hypokalemia -improved.
Acute on chronic anemia
-Transfused 3 units of blood so far this admission.
- No obvious evidence of bleeding.
-Doubt hemolysis with normal bilirubin.
- Given positive fluid status of 4.8 L, suspect hemodilution induced anemia due to IV fluid administration. Monitor hemoglobin for now. Transfuse if below 7.
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
Polysubstance abuse, former IVDA on Suboxone.
Anxiety disorder
Multiple skin breakdowns
Chronic bilateral lower extremity weakness, bedbound status
History of IVDA
Full code
Dispo: Father who is the POA is at the bedside today and he states that he does not want her transferred under any circumstances to [facility]. He understands that she could potentially deteriorate and in our hospital. In
addition, he states that Miriam also does not want to be transferred to [facility].; Thermospray Operator explained potential deterioration including multiorgan failure to family.
Total time spent on today's encounter was 51 minutes which included time spent in counseling the patient/family regarding diagnosis and treatment plan as listed above, goals of care, and symptom management. Case was discussed with nursing staff,
specialists, and care coordinators/case management. All labs and imaging personally reviewed by me. Remainder the time spent in detailed review of previous records, lab data, imaging, and other medical provider documentation.
Anticipated Discharge: > 48 hours
Subjective/Interval History
-
Date of Service: June 07, 2024
Completed proning, supinated this morning, able to wean off oxygen requirement, now on 65% FiO2
Objective Data
-
Labs:
Laboratory Results
06/07/24
03:34
WBC 30.0 H
Hgb 9.0 L D
Hct 27.9 L
Plt Count 382 D
HCO3 24.8
Sodium 141
Potassium 5.1
Chloride 112 H
Carbon Dioxide 26
BUN 39 H
Creatinine 0.4 L
Glucose 137 H
Calcium 8.6
Vital Signs:
Vital Signs
Temp Pulse Resp BP Pulse Ox
97.3 F 93 33 117/90 93
06/07/24 11:00 06/07/24 14:00 06/07/24 14:00 06/07/24 12:00 06/07/24 13:00
I&O
06/06/24 06/07/24 06/08/24
06:59 06:59 06:59
Intake Total 2465.9 / 2533.5 2140.5 / 2215.1 887.8 / 887.8
Output Total 2021 1410 / 1430 654 / 654
Balance 443.9 / 251.5 730.5 / 785.1 233.8 / 233.8
Review of Systems
-
History Source: Patient
All other systems: Not reviewed unless documented
Physical Exam
-
General: No Apparent Distress
HEENT: Normocephalic, Atraumatic and Moist Mucous Membranes
Respiratory: Clear to Auscultation
Cardiac: Regular Rhythm and S1/S2; Negative Murmur, Rub or Gallop
GI: Distended; Negative Tender or Organomegaly
Rectal: Deferred by Provider
Musculoskeletal: No Clubbing, No Cyanosis, No Edema and Other (Right arm amputation)
Skin: Negative Rash
Neuro: Awake, Alert, Oriented, AO x 3 and Nonfocal/Grossly Intact
Data Reviewed
-
Diagnostic Radiology: Report Reviewed by me
CT Scan: Report Reviewed by me
Labs: Labs Reviewed by me
--- NOTE | 2024-06-07 15:44 | W.PN.UPDATE ---
Update Note
Progress Note Update
Chest x-ray noted continues to have widespread bilateral infiltrates
FiO2 65%, decreased to maintain pulse ox above 90%
Repeat ABG tomorrow
Repeat chest x-ray tomorrow
Maintain intermediate to deep sedation and current mechanical ventilation settings
Gentle diuresis IV Lasix 20 mg daily
--- NOTE | 2024-06-07 15:49 | PTCARENOTE ---
Pt sat dropping to 86-88% and sustaining, pt suctioned and repositioned, scant clear sputum returned. PRN Fent and Versed were given for pain and ventilator dysynchrony (see MAR). RT called in room to reassess, Fi02 increased to 75% to maintain sat
90% or more per Stars Coordinator note.
[2024-06-07] MEDS: NORCURON 6 MG IV (16:31)
[2024-06-07] MEDS: LOVENOX 30 MG SC (16:46)
--- NOTE | 2024-06-07 16:57 | PTCARENOTE ---
TOF 4/4 twitches on 7 via left Ulnar nerve. PRN Vec dose given for continued tachypnea and vent dysynchrony with immediate improvement. Sa02 improved to 97%, RR 20. Dr. Haines at bedside to reassess, Fi02 weaned back to 65% at this time.
[2024-06-07 18:09] LABS: Glucose - Point of Care 116 mg/dl (70-99)
--- NOTE | 2024-06-07 20:00 | PTCARENOTE ---
assumed care, pt intubated and deeply sedated, unresponsive, pupils 3, NSR on the monitor doppler pedals, +4 anasarca tubi wax pumper, ETT 8 22 @ lip, AC 20// SpO2 94% rhonchi and coarse throughout, thick clear secretins orally and down ETT, R
nare NGT 65cm to low intermittent suction, no BS round, temp sensing correia yellow output, skin and wounds per worklist, sports bed, TPN, prop, fent, L fem A-line zeroed, L TL IJ, mother @ bedside and updated, otherwise refer to worklist
[2024-06-07] MEDS: MELATONIN 5 MG TUBE (21:13)
[2024-06-07] MEDS: REMERON 15 MG TUBE (21:13)
[2024-06-07] MEDS: Parenteral Nutrition, Central 1290 IV (21:15)
[2024-06-07 23:35] LABS: Glucose - Point of Care 115 mg/dl (70-99)
--- NOTE | 2024-06-08 00:17 | PTCARENOTE ---
systems reviewed, CHG bath and linen change pt tolerated, no change from previous assessment, otherwise refer to documentation
[2024-06-08] MEDS: MERREM 500 MG IV ×4 (04:17→21:07)
[2024-06-08] MEDS: STERILE WATER FOR INJECTION 10 ML IV ×5 (04:17→21:07)
[2024-06-08 04:45] LABS: B.E. -0.2 mmol/L; HCO3 24.8 mmol/L (21-28); O2 Saturation % 97.8 % (94-98); PCO2 41 mmHg (32-35); PO2 89 mmHg (83-108); pH 7.39 (7.35-7.45)
[2024-06-08 04:46] LABS: O2 Therapy 65
[2024-06-08 04:56] LABS: White Blood Cell Count 42.2 10^3/uL (4.8-10.8)
[2024-06-08 04:57] LABS: Hematocrit 24.1 % (37.0-47.0); Hemoglobin 8.1 g/dL (12.0-16.0); Mean Corp Hgb Conc. 33.6 g/dL (33.0-37.0); Mean Corpuscular Hgb 29.6 pg (27.0-31.0); Red Blood Cell Count 2.74 10^6/uL (4.20-5.40); Red Cell Dist. Width 22.2 % (11.5-14.5)
--- NOTE | 2024-06-08 05:00 | PTCARENOTE ---
systems reviewed, labs sent, WBC 42.2 PLYWOOD PATCHER notified, no change from previous assessment, CXR, otherwise refer to documentation.
[2024-06-08 05:15] LABS: ALT (SGPT) 41 U/L (0-35); AST (SGOT) 115 U/L (14-36); Albumin 1.7 g/dl (3.5-5.0); Alkaline Phosphatase 261 U/L (38-126); Blood Urea Nitrogen 62 mg/dl (7-17); Calcium 8.5 mg/dl (8.4-10.2); Carbon Dioxide 27 mmol/L (22-30); Chloride 112 mmol/L (98-107); Estimated Creatinine Clearance 119 ml/min; Glucose 120 mg/dl (70-99); Magnesium 2.5 mg/dl (1.6-2.3); Potassium 4.6 mmol/L (3.5-5.1); Sodium 140 mmol/L (135-145); Total Bilirubin 1.8 mg/dl (0.2-1.3); Total Protein 5.6 g/dl (6.3-8.2); eGFR > 60.00
[2024-06-08] MEDS: SOLU-CORTEF 50 MG IV ×2 (05:22→17:21)
[2024-06-08 05:35] LABS: Glucose - Point of Care 126 mg/dl (70-99)
[2024-06-08 05:35] LABS: Platelet Count 102 10^3/uL (130-400)
[2024-06-08 06:00] VITALS: BMI 25.9
[2024-06-08] MEDS: DIPRIVAN 100 IV ×3 (06:07→22:19)
[2024-06-08] MEDS: LASIX 20 MG IV (07:45)
[2024-06-08] MEDS: HYDROPHOR 1 APPLIC TOPICAL (07:45)
[2024-06-08] MEDS: FLEXERIL 10 MG TUBE ×3 (07:45→21:07)
[2024-06-08] MEDS: PROTONIX IV 40 MG IV (07:47)
[2024-06-08] MEDS: NEURONTIN 400 MG TUBE ×3 (07:47→21:07)
[2024-06-08] MEDS: MIRALAX 17 GRAMS TUBE (07:47)
[2024-06-08] MEDS: REFRESH CELLUVISC GEL 1 DROPS OPHTH ×2 (07:47→21:06)
[2024-06-08] MEDS: NSS (PRESERVATIVE FREE) 10 ML IV (07:47)
[2024-06-08] MEDS: SUBLIMAZE 100 MCG IV ×4 (07:56→19:09)
[2024-06-08] MEDS: VERSED 5 MG IV ×3 (07:57→19:10)
--- NOTE | 2024-06-08 08:00 | PTCARENOTE ---
Pt received at 07:15, intubated, sedated, supine. Vent alarming-for dysyncrony, pt medicated with PRN Fent and Versed. See MAR. Pt is sedated on fentanyl and propofol, RASS goal -3 to -5, currently -4. #8 ETT @ 22cm on the right side. AC
20/380/65%/+10. SR, HR 90s. L femoral a-line present and correlating with cuff pressure. +4 anasarca, scleral edema.Absent bowel sounds, abomen round. NGT to LIWS with green bilious output. Alva with fallon urine, 15-30ml/hr. Orders reviewed, safe
environment maintained. Medications and assessment as documented. Plan discussed with Drs. Morrison and Zaki. Mother sleeping at bedside.
[2024-06-08 08:17] VITALS: BP 112/83
[2024-06-08] MEDS: SUBLIMAZE 100 IV ×2 (08:53→17:22)
--- NOTE | 2024-06-08 09:19 | W.PN.ID1 ---
Date of Service
Date of Service: June 08, 2024
Today's Communication
See below
Assessment / Plan
Leukocytosis
- trending up despite steroid wean
Fever
- appears resolved. ?drug fever from zosyn, ?ARDS
Recurrent SBO +/- ileus
-Unclear if secondary to Crohn's versus other inflammatory bowel disease
VDRF
ARDS 2* Asp PNA
Thrombocytosis -> thrombocytopenia (new)
Increase LFT's (new)
Profound protein calorie malnutrition (albumin = 1.6)
Anemia
Hx Cirrhosis
Hx hepatitis C (untreated)
Hx IVDA
Recommendations:
Sputum culture unrevealing; and positive only for normal starla.
Blood cultures thus far have been negative. Wound culture from 05/16 appears to be a superficial culture and reflects superficial colonization only.
Given suspected inflammatory bowel issues, would avoid probiotics.
Rising leukocytosis is concerning.
DDX: acalculous cholecystitis (new elev LFT's) vs. C. diff colitis (no BM due to bowel obstruction), vs line infection vs Candidemia (on TPN) vs other.
Recommend image abdomen. Start with RUQ abd US and portable AXR [address] a/p considered.
Check blood cultures.
hx of C. 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 Unable to send stool for C. diff due to ileuw/obstruction.
Will treat empirically with IV metronidazole 500mg q8 and Vanco 125mg by tube q6h.
Continue meropenem for now
Follow WBC, vitals, LFTs'
Patient critically ill in intensive care unit on vent support.
Overall prognosis appears progressively dismal.
35 critical care time spent on the case including review of medical records, discussion with ICU staff, formulate managment and plan.
Chief Complaint
-: Leukocytosis and Clinical Sepsis
Subjective / Review of Systems
Remains sedated and intubated.
Vital Signs / Physical Exam
Vital Signs
Vital Signs
Temp Pulse Resp BP Pulse Ox
99.3 F 96 24 112/83 94
06/08/24 07:00 06/08/24 08:17 06/08/24 08:17 06/08/24 08:17 06/08/24 08:17
Physical Exam
Constitutional: Acutely Ill
Cardiovascular: Regular Rate and S1/S2
Pulmonary: Clear (anteriorly)
Gastrointestinal: Soft, Distended (moderate) and Other (No bowel sound)
Extremities: Edema (bilateral)
Lines: CVP (bilateral IJ no erythema)
Objective Data
Lab Data
Lab Results
06/08/24 04:24
06/08/24 04:24
PT 15.1 Sec (11.4-14.6) H 06/05/24 05:08
INR 1.14 06/05/24 05:08
APTT 29.8 Sec (23.4-35.0) 05/20/24 17:59
Estimated Creat Clear 119 ml/min 06/08/24 04:24
Lactic Acid 1.1 mmol/L (0.7-2.0) 06/03/24 02:03
Total Bilirubin 1.8 mg/dl (0.2-1.3) H D 06/08/24 04:24
AST 115 U/L (14-36) H 06/08/24 04:24
ALT 41 U/L (0-35) H 06/08/24 04:24
Alkaline Phosphatase 261 U/L (38-126) H 06/08/24 04:24
C-Reactive Protein 64.80 mg/L (0.0-10.00) H 05/11/24 04:38
Most recent labs reviewed.
Micro Results:
06/03/24 04:12 Respiratory Culture - Final
Endotracheal Usual Respiratory Starla
Gram Stain - Final
06/03/24 01:46 Influenza Types A & B (VICKEY) - Final
Nasal Swab Negative for Influenza A & B, NAAT
Negative results must be combined with clinical observations
and patient history.
Nucleic Acid Amplification test (NAAT)performed on the
[employer] platform.
05/23/24 14:01 Blood Culture - Final
Blood/Venous No Growth - Final Report
05/26/24 23:16 - Final
Feces/Stool Negative for Norovirus GI and GII.
05/16/24 11:15 Wound Culture - Final
Foot - Right Serratia marcescens
Gram Stain - Final
05/16/24 11:15 Anaerobic Culture - Final
Foot - Right NO ANAEROBES ISOLATED
05/12/24 04:38 Urine Culture - Final
Urine Escherichia coli
05/11/24 22:56 MRSA Screen - Final
Nose No Methicillin Resistant Staphylococcus aureus isolated.
Imaging:
06/04/2024 CXR (portable): Stable bilateral pleural effusions, progressed. Bilateral interstitial and airspace opacities overall slightly progressed from prior exam. Findings again likely represent multifocal pneumonia versus developing ARDS.
06/03/2024 ECHO (TTE): Normal biventricular size and systolic function without regional wall motion abnormalities. EF approximately 55 to 60%. No intracardiac mass or thrombus formation is noted. Please see full dictation for additional detail.
05/17/2024 CT abdomen/pelvis with IV contrast: Significant dilatation of small bowel loops extending into the region of the distal ileum. In the pelvis there is increased enhancement of the wall of several loops of small bowel with slight stranding
of the adjacent fat with suggestion of a transition in caliber in the right pelvis as described. Findings compatible with small bowel obstruction. No evidence of free intraperitoneal air.
Care Review
Plan reviewed with: Nurse and Physician (Dr Haines)
Total Time Spent with Patient (in minutes): Disa
--- NOTE | 2024-06-08 09:58 | PTCARENOTE ---
Orders rec'd from Dr. Prince Abd xray completed at this time.
[2024-06-08] MEDS: NORCURON 6 MG IV (10:22)
[2024-06-08] MEDS: FIRVANQ 125 MG TUBE ×3 (11:28→23:30)
--- NOTE | 2024-06-08 11:31 | W.PN.INTV ---
Today's Communication / Plan
Recommendations
Repeat blood cultures
Continue antibiotics
Vancomycin via tube added
Mechanical ventilation adjusted-overall mechanics improved
Continue sedation, will start lighten up sedation tomorrow if able to tolerate current vent settings
Repeat ABG
TPN for nutritional support
Prognosis is very poor
Assessment
-
34-year-old female with complex medical history including prolonged hospital stay in October 2023 for drug relapse, history of overdose/polysubstance abuse, prolonged mechanical ventilation, eventual right upper extremity amputation secondary to
necrotizing fasciitis/cellulitis, brought to [place] by mother, immediately admitted to [facility] for GI issues, followed by hospital stay at [facility] for GI issues, recurrent small bowel obstruction, recent hospital stay at
[facility] for 1 month in March 2024, treated for hepatic encephalopathy, small bowel obstruction, improved with NG tube decompression. Now returns with similar symptom complex admitted 05/11/2024 for recurrent small bowel obstruction,
pain syndrome, refusal of care at times (NG tube, PT/OT, medications), now transferred to ICU 06/02 for progressive hypoxia, bilateral infiltrates requiring intubation and mechanical ventilation
Acute hypoxic respiratory failure-ARDS post aspiration.
Intubated 06/03/2024
Progressive bilateral infiltrates
Suspect aspiration pneumonitis
Lung injury, early ARDS
Hypotension, possible sepsis versus hypovolemia
Leukocytosis
Hypokalemia/hypomagnesemia
Recurrent small bowel obstruction
Dilated small bowel per imaging
Possible stricture, possible inflammatory bowel disease
Endoscopy at outside hospital, no definitive diagnosis of Crohn's
Chronic steroid therapy per records
Prednisone 50 mg in the past
Liver cirrhosis, hepatitis C
Untreated
Ascites with paracentesis in the past
Hepatic encephalopathy with elevated ammonia in the past
Hypoalbuminemia, severe protein/calorie malnutrition
Chronic pain syndrome
Anemia
Required transfusion x 2, last 06/02
Right great hallux osteomyelitis
Status post amputation
Conditions present prior to admission
Prolonged hospital stay October 2023, [place]
VDRF
Right upper extremity amputation secondary to necrotizing fasciitis entheses
Required HD (pt refused to continue per Father)
Anxiety disorder/bipolar disorder
Polysubstance abuse, IV drug abuse
On Suboxone in the past
Drug use intermittently since age of 15 according to father
Multiple rehabilitation efforts in the past
Chronic lower extremity weakness, sedentary/bedbound since October 2023
Plan/recommendations
Remains critically ill.
Deeply sedated with fentanyl/propofol, vecuronium as needed
No longer requiring vasopressors.
Continue with current plan:
Maintain volume-cycled ventilation -day #5
AC 20/380/10/65%
Ppk 26, Pplat 24
ABG 06/08/2024: 7.39/41/89
ABG 06/07/2024: 7.4/40/75
ABG 7.38/41/70 (06/06/2024)
Chest x-ray 06/05/2024: Rotated to the left. Endotracheal tube in place. Slightly improved bilateral infiltrates. No pneumothorax.
Chest x-ray 06/08/2024: Persistent bilateral pulmonary infiltrates, slightly better on the right.
-
Ventilator setting adjusted: Tidal volume increased to 410/respiratory rate decreased to 16/FiO2 50%/10 of PEEP.
ABG in 30 minutes.
Unfortunately with any sedation breaks patient overbreathing the ventilator and develops oxygen desaturation per
-
Maintain sedation, propofol/fentanyl, vecuronium as needed-no plans for sedation breaks at this point.
Status post nebulized epoprostenol started 06/04, wean overnight 06/05 per protocol-discontinued 06/06/2024. Tolerated.
Rotational bed
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
No plans for prone positioning tonight. Oxygenation and pulmonary mechanics improving.
Overall suspect respiratory failure improving slowly.
-
Improved hemodynamics.
Not requiring vasopressors.
Hold IV fluids.
Continue IV hydrocortisone, will decrease to every 12 hours 06/08/2024. Has not required vasopressors.
Echocardiogram with normal biventricular function, PA pressure 31
Continue daily 20 mg Lasix, responding well. Will follow closely creatinine and BUN.
May need to hold if BUN continues to rise.
-
Leukocytosis rising: Multiple sources possible including intra-abdominal. Not moving bowels.
Abdominal film 06/08/2024: Nonspecific bowel pattern. No subdiaphragmatic air
Continue with antibiotics for now, presently on meropenem-defer to infectious disease.
Vancomycin added via tube
Afebrile
Unable to obtain cultures, poor access
Blood cultures to be repeated 06/08/2024
Respiratory culture with usual respiratory starla
Negative influenza
Subclavian triple-lumen catheter will need to be exchanged at some point. Patient has very difficult access, PICC line has been tried. Right upper extremity amputated.
Trying to avoid femoral lines.
Will discuss with interventional radiology tomorrow.
Hemoglobin noted. Patient received 2 units of PRBC since hospital stay, last being 06/02
Hemoglobin 7.1, status post transfusion 06/06/2024.
Given risk of lung injury process, would minimize transfusion as able
Follow-up for bleeding, no evidence of active bleeding at this time
Thrombocytopenia noted: If continues to drop we will need to check HIT, she is on Lovenox. Could be also antibiotic driven.
Follow urine output-renal function is normal.
Alva catheter in place
Patient with history of dialysis for prolonged period in October 2023 while in [place].
Continues with TPN. Has required TPN throughout hospital stay. Unfortunate patient with protein calorie malnutrition
Hypoalbuminemia noted-patient is in anasarca.
NG tube in place, maintain to suction especially when prone
Dilated small bowel loops based on prior studies
Medications per NG tube if okay with surgery
DVT prophylaxis: Continue with enoxaparin 30 mg. Prefer mechanical prophylaxis as well as patient is high risk for thromboembolic disease. Patient has refused in the past. Father also has taken off in the past. Continue mechanical prophylaxis
GI prophylaxis: Remains on pantoprazole
Dr. Haines Updated mother and father at bedside at length 06/06/2024, 06/07/2024, 06/08/2024. All questions answered
Prognosis continues to be very poor.
-
See prior update note for transfer to [facility]. No clear pathway for transfer to [facility]
Family aware
Prior discussion:
Father admits that patient has been difficult, refusing therapy multiple times. She listens to him when he tells her to do it but when he leaves the room, she reverts to refusing care and therapy
He also is asking 'why are we giving her pain medicines? She is an addict?' I reviewed with father that when patient is screaming in excruciating pain, we cannot ignore this. We have to find a happy medium between controlling pain and avoiding
oversedation. This will be difficult given her drug abuse/polysubstance abuse history. Father states she has been using drugs probably since age of 15
Father also admits that patient has refused medications in the past, refuses placement of NG tube, refused nutrition when offered. Father also upset that daughter is not getting nutrition. However upon reviewing records, with every attempt to
advance diet, patient developed significant abdominal pain.
I also reviewed with father and stepmother worst-case scenario where patient progresses to multisystem organ failure, developed complication of prolonged hospital stay, prolonged mechanical ventilation such as thromboembolic disease, recurrent
infections, bleeding, cardiac complications, renal complications. He did not want to hear this but I proceeded with stepmother as father stepped away. I told the stepmother that it is important for him to be hopeful of outcome but to be aware of
potential complications.
Father confirmed full CODE STATUS
Will request records from [facility]
The above was reviewed at length with critical care nursing, respiratory care, primary service
Critical care statement: A total of 40 minutes of critical care time was provided for this patient today. This includes management of unstable vital signs, evaluation of the patient at bedside, reviewing the patient's pertinent medical records
including ventilator settings, arterial blood gases, radiographs, microbiology, laboratory evaluations and discussion with primary team, critical care nursing, and respiratory therapy.
Subjective Dataa
Subjective Data
Date of Service:
Date of Service: June 08, 2024
Chief Complaint: Optician Apprentice Dispensing Follow Up (ARDS) and Vent Management Follow Up
Subjective:
Critically ill, intubated on mechanical ventilator
Unable to provide history
Worsening leukocytosis
Review of Systems
General: Unobtainable - Sedation
Objective Data
Data Reviewed
Vital Signs / I&O / Oxygen:
Vital Signs
Temp Pulse Resp BP Pulse Ox
99.1 F 97 21 112/83 98
06/08/24 11:00 06/08/24 11:00 06/08/24 11:00 06/08/24 08:17 06/08/24 11:16
Intake and Output
06/07/24 06/08/24 06/09/24
06:59 06:59 06:59
Intake Total 2140.5 / 2215.1 2248.4 / 2325.5 625.5 / 625.5
Output Total 1410 / 1430 1427 / 1450 818 / 818
Balance 730.5 / 785.1 821.4 / 875.5 -192.5 / -192.5
SaO2 [A/C] 96
SaO2 98
Nasal Cannula flow liters per 60
minute
Physical Exam
General: Comfortable and Other (Left subclavian central line, lying supine)
HEENT: Normocephalic
Cardiovascular: S1-S2, Regular Rhythm (Tachycardic), Murmur (n), Rub (n), Peripheral Edema (n) and Other (Right upper extremity amputation, toe dressing)
Respiratory: Wheeze (n), Crackles (few posteriorly), Rhonchi (few), Non-Labored Respirations, Stridor (n) and ET Tube
GI: NG Tube and Other (Absent bowel sounds)
Neurology: Unresponsive (Sedated)
Skin: Cyanosis (n), Jaundice (n) and Rash (n)
Labs/Micro/Reports
Lab Data
06/08/24 04:24
06/08/24 04:24
Laboratory Results
06/08/24
04:24
pH 7.39
pCO2 41 H
pO2 89
HCO3 24.8
O2 Delivery Level 65
Microbiology
06/03/24 04:12 Endotracheal Respiratory Culture - Final
Usual Respiratory Starla
06/03/24 04:12 Endotracheal Gram Stain - Final
--- NOTE | 2024-06-08 11:56 | W.PN.GS2 ---
Today's Communication / Plan
-
-- TPN renewed
-- Continue with NGT decompression
Assessment / Plan
-
Assessment: 34 yo female with h/o IVDA presenting with recurrent obstructive symptoms secondary to stricture of unclear etiology Crohns vs ischemic. ?history of Crohn's for which she has been on steroids without much benefit as well as recent
ischemic event in October during a drug OD which is when her GI symptoms began. Recently treated for pancolitis, C. difficile toxin negative antigen positive completed course of vancomycin.
Patient remains critically ill
Severe protein calorie malnutrition
Nutrition following, adjustments made to TPN as per recs
Surgery following for recurrent obstructive symptoms secondary to stricture of unclear etiology: Crohns vs ischemic (more likely)
Critical illness with ARDS and liver failure
Plan:
-- Continue NGT to suction, no enteral feedings
-- TPN renewed
-- Continue to trend labs
-- Tentative plan for delayed operative intervention following steroid wean and improvement in her nutrition/liver disease status.
Transfer to [facility] was previously discussed and was planned. Prior to being intubated/sedated, patient was adamantly against this and her family has respected her wish to stay here; transfer was cancelled.
Subjective Data
-
Date of Service: June 08, 2024
Intubated and sedated.
Objective Data
-
Intake and Output
06/07/24 06/08/24 06/09/24
06:59 06:59 06:59
Intake Total 2140.5 / 2215.1 2248.4 / 2325.5 625.5 / 625.5
Output Total 1410 / 1430 1427 / 1450 818 / 818
Balance 730.5 / 785.1 821.4 / 875.5 -192.5 / -192.5
Intake:
IV fluids (Total) 477.5 / 497.1 547.4 / 570.5 115.5 / 115.5
fent 300.0 / 312.5 300.0 / 312.5 62.5 / 62.5
prop 177.5 / 184.6 247.4 / 258.0 53.0 / 53.0
TPN/PPN 1263 / 1318 1311 / 1365 270 / 270
Amount instilled into GI Tube ( 150 / 150 390 / 390 240 / 240
Total)
Chester Sump 150 / 150 390 / 390 240 / 240
Blood Product Amount Infused ( 250 / 250
mL)
Packed Rbc Leukoreduced Unit 250 / 250
[id number]
Output:
Gastrointestinal tube output ( 350 / 350 300 / 300
Total)
Chester Sump 350 / 350 300 / 300
Urine, Alva 1060 / 1080 1127 / 1150 818 / 818
Vital Signs
Temp Pulse Resp BP Pulse Ox
99.1 F 97 21 112/83 98
06/08/24 11:00 06/08/24 11:00 06/08/24 11:00 06/08/24 08:17 06/08/24 11:16
Lab Results
06/08/24 04:24
06/08/24 04:24
Calcium 8.5 mg/dl (8.4-10.2) 06/08/24 04:24
Phosphorus 4.0 mg/dl (2.5-4.5) 06/08/24 04:24
Magnesium 2.5 mg/dl (1.6-2.3) H 06/08/24 04:24
Total Bilirubin 1.8 mg/dl (0.2-1.3) H D 06/08/24 04:24
Direct Bilirubin 0.3 mg/dl (0.0-0.4) 05/11/24 04:38
AST 115 U/L (14-36) H 06/08/24 04:24
ALT 41 U/L (0-35) H 06/08/24 04:24
Alkaline Phosphatase 261 U/L (38-126) H 06/08/24 04:24
Total Protein 5.6 g/dl (6.3-8.2) L 06/08/24 04:24
Albumin 1.7 g/dl (3.5-5.0) L 06/08/24 04:24
Physical Exam
-
Gen: Intubated and sedated
HEENT: NGT with bilious outputs
Abd: soft, minimal distension, no wincing
[2024-06-08 12:05] LABS: Glucose - Point of Care 126 mg/dl (70-99)
[2024-06-08 12:22] LABS: B.E. -1.6 mmol/L; HCO3 23.7 mmol/L (21-28); O2 Saturation % 92.1 % (94-98); PCO2 42 mmHg (32-35); PO2 61 mmHg (83-108); pH 7.36 (7.35-7.45)
--- NOTE | 2024-06-08 12:25 | PTCARENOTE ---
Pt turned and repositioned, sacral dressing changed pericare and CHG bath provided. Dr. Haines adjusted vent settings at this time, /%, sats 91% currently. Medications administered per orders. see worklist. Lateral rotation continues.
Safe environment maintained.
[2024-06-08] MEDS: FLAGYL 500 MG 100 IV ×2 (13:33→21:06)
--- NOTE | 2024-06-08 15:10 | PTCARENOTE ---
All wound care completed. US tech in room for abd US. ABG results discussed with deputy of counter intelligence Dr. Haines.
--- NOTE | 2024-06-08 15:12 | W.PN.HOSP.TC ---
Today's Communication/Plan
-
ARDSNet weaning
HIT panel
Assessment / Plan
Assessment / Plan
Gen-sedated, intubated, prone
HEENT-NC, AT, anicteric, clear oral mm
Neck-supple
CV-reg, no M, +S1/S2, tachy
Lungs-clear B/L
Abd-soft, NT, ND
Ext-no edema
Musculoskeletal-no cyanosis, clubbing, bilateral foot drop
Skin-warm and dry
Acute hypoxic respiratory failure
-unfortunately worsening respiratory failure and now has ARDS physiology. LIkely 2/2 to aspiration pneumonitis
-Intubated roll contour grinder 06/03 for respiratory failure.
-patient refused transfer to [place] prior to intubation as per records and POA, despite initially possibly an ECMO candidate
-Prone positioning per protocol. Now supinated, PF ratio improving. No plans of proning at this time
�Continue AC/VC
� Continue ventilator settings, adjust as necessary� ARDSnet protocol for weaning
� Continue sedation, paralytics as needed if bucking the vent
� Status post nebulized epoprostenol, completed today
�Maintain euvolemia, slight net negative - diuretics dailty
#Septic shock
��Possibly secondary to pneumonia/ARDS
�Vasopressors weaned off
� Continue stress dose steroids, patient was on steroids in the past - wean
� Wean steroids as tolerated
� Intermittent diuresis now with anasarca
�Continue meropenem for today
�ID consulted
-monitor cbc - possibly 2/2 to sbo
#Recurrent SBO
-unclear etiology of bowel obstruction, perhaps ischemia induced strictures.
- She does not have a confirmed diagnosis of inflammatory bowel disease.
-High risk for operative intervention per surgical service given low prealbumin level, severe malnutrition and cirrhosis.
- Prealbumin remains low despite ongoing TPN. Last prealbumin was 5.2. Discussed with Dr. Godwin. I am not sure prealbumin is reliable in the setting of her underlying cirrhosis, critical illness.
-NG tube with minimal output. Continue suction; minimal bowel sounds
�TPN
� Trend labs�tentative plan for delayed operative intervention following steroid wean improvement in her nutritional/liver disease status
Intractable pain syndrome -
-complaining of severe bilateral lower extremity pain and muscle cramps which is chronic.
-Was on IV Dilaudid every 4 hours as needed prior to intubation.
-Currently on fentanyl IV as needed.
Thrombocytopenia
-most likely 2/2 to sepsis
-ctm
Pancolitis
-C. difficile antigen positive toxin negative recently treated with oral vancomycin.
#Transaminitis
-suspect 2/2 to TPN and /or DILI
-monitor
-Already known hep C carrier
Cirrhosis secondary to untreated hepatitis C.
Hepatic encephalopathy
Recurrent ascites.
Anasarca
Severe protein/calorie malnutrition -continue TPN.
Hypovolemic hyponatremia -resolved.
Hypokalemia -improved.
Acute on chronic anemia
-Transfused 3 units of blood so far this admission.
- No obvious evidence of bleeding.
-Doubt hemolysis with normal bilirubin.
- Given positive fluid status of 4.8 L, suspect hemodilution induced anemia due to IV fluid administration. Monitor hemoglobin for now. Transfuse if below 7.
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
Polysubstance abuse, former IVDA on Suboxone.
Anxiety disorder
Multiple skin breakdowns
Chronic bilateral lower extremity weakness, bedbound status
History of IVDA
Full code
Dispo: Father who is the POA states that he does not want her transferred under any circumstances to [facility]. He understands that she could potentially deteriorate and in our hospital. In addition, he states that Miriam
also does not want to be transferred to [facility].; Coach Mechanic explained potential deterioration including multiorgan failure to family.
Total time spent on today's encounter was 53 minutes which included time spent in counseling the patient/family regarding diagnosis and treatment plan as listed above, goals of care, and symptom management. Case was discussed with nursing staff,
specialists, and care coordinators/case management. All labs and imaging personally reviewed by me. Remainder the time spent in detailed review of previous records, lab data, imaging, and other medical provider documentation.
Anticipated Discharge: > 48 hours
Subjective/Interval History
-
Date of Service: June 08, 2024
Weaning mechanical ventilation
Objective Data
-
Labs:
Laboratory Results
06/08/24 06/08/24
04:24 12:12
WBC 42.2 H*
Hgb 8.1 L
Hct 24.1 L
Plt Count 102 L D
HCO3 24.8 23.7
Sodium 140
Potassium 4.6
Chloride 112 H
Carbon Dioxide 27
BUN 62 H
Creatinine 0.5 L
Glucose 120 H
Calcium 8.5
Total Bilirubin 1.8 H D
AST 115 H
ALT 41 H
Alkaline Phosphatase 261 H
Vital Signs:
Vital Signs
Temp Pulse Resp BP Pulse Ox
99.1 F 89 20 112/83 94
06/08/24 11:00 06/08/24 13:00 06/08/24 13:00 06/08/24 08:17 06/08/24 13:54
I&O
06/07/24 06/08/24 06/09/24
06:59 06:59 06:59
Intake Total 2140.5 / 2215.1 2248.4 / 2325.5 1036.8 / 1036.8
Output Total 1410 / 1430 1427 / 1450 951 / 951
Balance 730.5 / 785.1 821.4 / 875.5 85.8 / 85.8
Review of Systems
-
History Source: Patient
All other systems: Not reviewed unless documented
Physical Exam
-
General: No Apparent Distress
HEENT: Normocephalic, Atraumatic and Moist Mucous Membranes
Respiratory: Clear to Auscultation
Cardiac: Regular Rhythm and S1/S2; Negative Murmur, Rub or Gallop
GI: Distended; Negative Tender or Organomegaly
Rectal: Deferred by Provider
Musculoskeletal: No Clubbing, No Cyanosis, No Edema and Other (Right arm amputation)
Skin: Negative Rash
Neuro: Awake, Alert, Oriented, AO x 3 and Nonfocal/Grossly Intact
Data Reviewed
-
Diagnostic Radiology: Report Reviewed by me
CT Scan: Report Reviewed by me
Labs: Labs Reviewed by me
[2024-06-08 17:18] LABS: Glucose - Point of Care 103 mg/dl (70-99)
[2024-06-08] MEDS: LOVENOX 30 MG SC (17:21)
--- NOTE | 2024-06-08 19:30 | PTCARENOTE ---
assumed care, pt intubated and sedated, unresponsive, pupils 3, NSR on the monitor doppler pedals, +4 anasarca tubi short goods drier, ETT 8 22 @ lip, AC / SpO2 91%, see MAR for meds given for vent dysnc., rhonchi and coarse throughout, thick clear
secretins orally and down ETT, R nare NGT 65cm to low intermittent suction, no BS round, temp sensing correia yellow output, skin and wounds per worklist, sports bed, TPN, prop, fent, L fem A-line zeroed, L TL IJ, mother updated on the phone,
otherwise refer to worklist
[2024-06-08] MEDS: MELATONIN 5 MG TUBE (21:07)
[2024-06-08] MEDS: REMERON 15 MG TUBE (21:07)
[2024-06-08] MEDS: Parenteral Nutrition, Central 1120 IV (21:08)
[2024-06-08 23:40] LABS: Glucose - Point of Care 140 mg/dl (70-99)
[2024-06-09 00:39] VITALS: BP 101/74
--- NOTE | 2024-06-09 00:53 | PTCARENOTE ---
systems reviewed, chg bath, no change from previous assessment, otherwise refer to documentation.
[2024-06-09] MEDS: SUBLIMAZE 100 IV ×3 (02:12→17:36)
[2024-06-09] MEDS: SUBLIMAZE 100 MCG IV ×7 (02:59→22:19)
[2024-06-09] MEDS: VERSED 5 MG IV (02:59)
[2024-06-09] MEDS: STERILE WATER FOR INJECTION 10 ML IV ×5 (03:30→21:14)
[2024-06-09] MEDS: MERREM 500 MG IV ×4 (03:31→21:14)
[2024-06-09] MEDS: NORCURON 6 MG IV (03:32)
[2024-06-09 04:23] LABS: B.E. -0.8 mmol/L; HCO3 24.8 mmol/L (21-28); O2 Saturation % 99.4 % (94-98); PCO2 45 mmHg (32-35); PO2 127 mmHg (83-108); pH 7.35 (7.35-7.45)
[2024-06-09 04:28] LABS: O2 Therapy ACS/380/28/+ 10
[2024-06-09 04:45] LABS: Hematocrit 22.2 % (37.0-47.0); Hemoglobin 7.2 g/dL (12.0-16.0); Mean Corp Hgb Conc. 32.4 g/dL (33.0-37.0); Mean Corpuscular Hgb 29.1 pg (27.0-31.0); Mean Corpuscular Volume 89.9 fL (81.0-99.0); Red Blood Cell Count 2.47 10^6/uL (4.20-5.40); Red Cell Dist. Width 23.6 % (11.5-14.5); White Blood Cell Count 36.6 10^3/uL (4.8-10.8)
[2024-06-09 04:46] LABS: Triglycerides 184 mg/dl (10-149)
[2024-06-09 05:25] LABS: Absolute Neutrophils -Man Diff 29.6 10^3/uL (1.4-6.5); Anisocytosis 2+; Band Neutrophils 5 % (0-3); Lymphocytes 4 % (20-51); Metamyelocytes 6 % (-); Monocytes 2 % (2-9); Myelocytes 7 % (-); Normal RBC Morphology No; Nucleated Red Blood Cells 15 (-); Platelets Checked Yes; Segmented Neutrophils 76 % (42-75)
[2024-06-09 05:27] LABS: Polychromasia 1+; Toxic Granulation 1+
[2024-06-09 05:28] LABS: Basophilic Stippling 1+; Platelet Count 71 10^3/uL (130-400); Schistocytes 2+; Total Cells Counted 100
[2024-06-09 05:29] LABS: Target Cells 2+
[2024-06-09 05:30] LABS: Hypersegmented Neutrophil Occasional; Ovalocytes Occasional
--- NOTE | 2024-06-09 05:30 | PTCARENOTE ---
systems reviewed, plt, Hgb low FRINGE KNOTTER notified labs ordered and sent, fent, versed and vec given per MAR for vent dysync, otherwise refer to documentation.
[2024-06-09 05:31] LABS: Acanthocytes 1+; Hypochromasia 1+; Poikilocytosis 2+
[2024-06-09 05:35] LABS: Glucose - Point of Care 129 mg/dl (70-99)
[2024-06-09] MEDS: SOLU-CORTEF 50 MG IV ×2 (05:35→17:13)
[2024-06-09] MEDS: FLAGYL 500 MG 100 IV ×3 (05:35→21:14)
[2024-06-09] MEDS: DIPRIVAN 100 IV ×3 (05:35→21:18)
[2024-06-09 05:41] LABS: INR 1.26; PT 16.3 Sec (11.4-14.6)
[2024-06-09] MEDS: FIRVANQ 125 MG TUBE ×3 (05:41→17:32)
[2024-06-09 05:42] LABS: APTT 34.6 Sec (23.4-35.0)
[2024-06-09 05:58] LABS: D-Dimer > 20.00 ug/mlFEU (0.00-0.50)
[2024-06-09 06:00] VITALS: BMI 26.0
[2024-06-09 06:24] LABS: Fibrinogen 89 MG/DL (199-459)
[2024-06-09 06:52] LABS: ALT (SGPT) 67 U/L (0-35); AST (SGOT) 114 U/L (14-36); Albumin 1.5 g/dl (3.5-5.0); Alkaline Phosphatase 241 U/L (38-126); Blood Urea Nitrogen 60 mg/dl (7-17); Carbon Dioxide 27 mmol/L (22-30); Chloride 113 mmol/L (98-107); Estimated Creatinine Clearance 119 ml/min; Glucose 132 mg/dl (70-99); Potassium 4.1 mmol/L (3.5-5.1); Sodium 140 mmol/L (135-145); Total Bilirubin 1.8 mg/dl (0.2-1.3); Total Protein 5.5 g/dl (6.3-8.2); eGFR > 60.00
--- NOTE | 2024-06-09 08:00 | PTCARENOTE ---
Assumed care of patient. Pt rec'd sedated on ventilator. Grimaces w/ oral care and suctioning. Does not respond to verbal stimuli. Unrestrained. Bilateral foot drop. Scleral edema. S1 S2 reg w/ NSR on monitor. DP/PT's by doppler. +4
generalized edema. #8 ETT 22 [address] lip...current vent settings: 16/410/+10/50%...sats 96%. Lungs diminished w/ coarse crackles and rhonchi throughout. Suctioned orally for thick clear secretions. Right nare salem (65cm) -> LIWS. Absent bowel
sounds. Temp sensing correia draining fallon urine. Correia care done. Skin pale/ashen in color. Bilateral foot dressings noted. Sacral optifoam intact. Heels elevated on pillows. Left femoral artemio....flushed and zeroed. (L)SC TLC w/ fentanyl,
propofol and TPN infusing...see interventions. VS documented. Safe environment confirmed. Will continue to monitor.
[2024-06-09] MEDS: PROTONIX IV 40 MG IV (08:29)
[2024-06-09] MEDS: LASIX 20 MG IV (08:30)
[2024-06-09] MEDS: NSS (PRESERVATIVE FREE) 10 ML IV (08:30)
[2024-06-09] MEDS: NEURONTIN 400 MG TUBE ×3 (08:36→21:15)
[2024-06-09] MEDS: REFRESH CELLUVISC GEL 1 DROPS OPHTH ×2 (08:36→20:45)
[2024-06-09] MEDS: MIRALAX 17 GRAMS TUBE (08:36)
[2024-06-09] MEDS: HYDROPHOR 1 APPLIC TOPICAL (08:36)
[2024-06-09] MEDS: FLEXERIL 10 MG TUBE ×3 (08:36→21:15)
--- NOTE | 2024-06-09 09:15 | PTCARENOTE ---
Sacral dressing changed. Area appears to have chronic discoloration and is unchanged from previous pics taken by WOC RN.
--- NOTE | 2024-06-09 09:21 | W.PN.ID1 ---
Date of Service
Date of Service: June 09, 2024
Today's Communication
Continue antibiotics for today. See below�
Assessment / Plan
Leukocytosis
-Slight improvement today
Fever
- appears resolved. ?drug fever from zosyn, ?ARDS
Recurrent SBO +/- ileus
-Unclear if secondary to Crohn's versus other inflammatory bowel disease
VDRF
ARDS 2* Asp PNA
Thrombocytopenia
Increase LFT's
Profound protein calorie malnutrition (albumin = 1.5)
Anemia
Hx Cirrhosis
Hx hepatitis C (untreated)
Hx IVDA
Recommendations:
Sputum culture unrevealing; and positive only for normal starla.
Blood cultures thus far have been negative. Wound culture from 05/16 appears to be a superficial culture and reflects superficial colonization only.
Given suspected inflammatory bowel issues, would avoid probiotics.
Leukocytosis has stabilized.
DDX: acalculous cholecystitis (new elev LFT's) vs. C. diff colitis (no BM due to bowel obstruction), vs line infection vs Candidemia (on TPN) vs other.
Abdominal ultrasound shows severe diffuse hepatic steatosis, but no evidence for cholelithiasis or biliary obstruction. Abdominal flatplate unrevealing.
Repeat blood cultures pending to assess for bacteremia or candidemia (given ongoing TPN)
hx of C. diff colonization ( Ag(+)/toxin (-) in Nov). Unable to send stool for C. diff due to ileuw/obstruction.
Continue empiric IV metronidazole 500mg q8 and Vanco 125mg by tube q6h.
Continue meropenem for now
Check CT abdomen/pelvis with IV contrast when possible. No oral contrast possible given underlying GI issues
Follow WBC, vitals, LFTs, platelets.
Patient critically ill in intensive care unit on vent support.
Overall prognosis appears progressively dismal for recovery.
����������������������������������������������������������
Chief Complaint
-: Leukocytosis and Clinical Sepsis
Subjective / Review of Systems
Patient seen and examined. Remains on vent.
Vital Signs / Physical Exam
Vital Signs
Vital Signs
Temp Pulse Resp BP Pulse Ox
99.4 F 89 23 130/72 96
06/09/24 08:24 06/09/24 08:30 06/09/24 06:00 06/09/24 08:30 06/09/24 07:38
Physical Exam
Constitutional: Acutely Ill and Chronically Ill
Oropharyngeal: Other (ET tube in place. NG tube in place.)
Cardiovascular: Regular Rate and S1/S2
Pulmonary: Coarse and Other (On vent.)
Gastrointestinal: Soft, Distended (moderate) and Other (No bowel sound. Positive anasarca)
Genito-Urinary: Alva and Clear Urine
Extremities: Edema (Upper extremities and lower extremities bilaterally); Negative Erythema
Skin: Warm and Dry; Negative Rash
Neurological: Other (Sedated)
Lines: CVP (bilateral IJ no erythema)
Objective Data
Lab Data
Lab Results
06/09/24 04:04
06/09/24 04:04
PT 16.3 Sec (11.4-14.6) H 06/09/24 05:13
INR 1.26 06/09/24 05:13
APTT 34.6 Sec (23.4-35.0) 06/09/24 05:13
Estimated Creat Clear 119 ml/min 06/09/24 04:04
Lactic Acid 1.1 mmol/L (0.7-2.0) 06/03/24 02:03
Total Bilirubin 1.8 mg/dl (0.2-1.3) H 06/09/24 04:04
AST 114 U/L (14-36) H 06/09/24 04:04
ALT 67 U/L (0-35) H 06/09/24 04:04
Alkaline Phosphatase 241 U/L (38-126) H 06/09/24 04:04
C-Reactive Protein 64.80 mg/L (0.0-10.00) H 05/11/24 04:38
Most recent labs reviewed.
Micro Results:
06/08/24 11:45 Blood Culture - Pending
Blood/Venous
06/08/24 10:10 Blood Culture - Pending
Blood/Venous
06/03/24 04:12 Respiratory Culture - Final
Endotracheal Usual Respiratory Starla
Gram Stain - Final
06/03/24 01:46 Influenza Types A & B (VICKEY) - Final
Nasal Swab Negative for Influenza A & B, NAAT
Negative results must be combined with clinical observations
and patient history.
Nucleic Acid Amplification test (NAAT)performed on the
[employer] platform.
05/23/24 14:01 Blood Culture - Final
Blood/Venous No Growth - Final Report
05/26/24 23:16 - Final
Feces/Stool Negative for Norovirus GI and GII.
05/16/24 11:15 Wound Culture - Final
Foot - Right Serratia marcescens
Gram Stain - Final
05/16/24 11:15 Anaerobic Culture - Final
Foot - Right NO ANAEROBES ISOLATED
05/12/24 04:38 Urine Culture - Final
Urine Escherichia coli
05/11/24 22:56 MRSA Screen - Final
Nose No Methicillin Resistant Staphylococcus aureus isolated.
Imaging:
06/04/2024 CXR (portable): Stable bilateral pleural effusions, progressed. Bilateral interstitial and airspace opacities overall slightly progressed from prior exam. Findings again likely represent multifocal pneumonia versus developing ARDS.
06/03/2024 ECHO (TTE): Normal biventricular size and systolic function without regional wall motion abnormalities. EF approximately 55 to 60%. No intracardiac mass or thrombus formation is noted. Please see full dictation for additional detail.
05/17/2024 CT abdomen/pelvis with IV contrast: Significant dilatation of small bowel loops extending into the region of the distal ileum. In the pelvis there is increased enhancement of the wall of several loops of small bowel with slight stranding
of the adjacent fat with suggestion of a transition in caliber in the right pelvis as described. Findings compatible with small bowel obstruction. No evidence of free intraperitoneal air.
[2024-06-09 11:03] LABS: O2 Saturation % 98.2 % (94-98); PCO2 38 mmHg (32-35); PO2 89 mmHg (83-108); pH 7.46 (7.35-7.45)
--- NOTE | 2024-06-09 11:30 | W.PN.GS2 ---
Today's Communication / Plan
-
`
Assessment / Plan
-
Assessment: 34 yo female with h/o IVDA presenting with recurrent obstructive symptoms secondary to stricture of unclear etiology Crohns vs ischemic. ?history of Crohn's for which she has been on steroids without much benefit as well as recent
ischemic event in October during a drug OD which is when her GI symptoms began. Recently treated for pancolitis, C. difficile toxin negative antigen positive completed course of vancomycin.
Patient remains critically ill
Severe protein calorie malnutrition
Surgery following for recurrent obstructive symptoms secondary to stricture of unclear etiology: Crohns vs ischemic (more likely)
Plan:
-- Continue NGT to suction, no enteral feedings -due to chronic partial small bowel obstruction
-- TPN renewed -no lipids
-- Continue to trend labs
-- [facility] CT imaging scheduled for today; will review results
Transfer to [facility] was previously discussed and was planned. Prior to being intubated/sedated, patient was adamantly against this and her family has respected her wish to stay here; transfer was cancelled.
Subjective Data
-
Date of Service: June 09, 2024
Patient seen and examined.
Discussed with Dr. Haines, wringer machine operator
Remains intubated and sedated,
no vasopressors
Ventilator settings stable and improving FiO2 requirements
Objective Data
-
Intake and Output
06/08/24 06/09/24 06/10/24
06:59 06:59 06:59
Intake Total 2248.4 / 2325.5 2627.4 / 2627.4
Output Total 1427 / 1450 1794 / 1794
Balance 821.4 / 875.5 833.4 / 833.4
Intake:
IV fluids (Total) 547.4 / 570.5 554.4 / 554.4
fent 300.0 / 312.5 300.0 / 300.0
prop 247.4 / 258.0 254.4 / 254.4
IV piggybacks 200 / 200
TPN/PPN 1311 / 1365 1233 / 1233
Amount instilled into GI Tube ( 390 / 390 640 / 640
Total)
Power Sump 390 / 390 640 / 640
Output:
Gastrointestinal tube output ( 300 / 300 150 / 150
Total)
Power Sump 300 / 300 150 / 150
Urine, Alva 1127 / 1150 1644 / 1644
Vital Signs
Temp Pulse Resp BP Pulse Ox
99.4 F 89 23 130/72 95
06/09/24 08:24 06/09/24 10:00 06/09/24 10:00 06/09/24 08:30 06/09/24 10:00
Lab Results
06/09/24 04:04
06/09/24 04:04
Calcium 8.0 mg/dl (8.4-10.2) L 06/09/24 04:04
Phosphorus 4.0 mg/dl (2.5-4.5) 06/08/24 04:24
Magnesium 2.5 mg/dl (1.6-2.3) H 06/08/24 04:24
Total Bilirubin 1.8 mg/dl (0.2-1.3) H 06/09/24 04:04
Direct Bilirubin 0.3 mg/dl (0.0-0.4) 05/11/24 04:38
AST 114 U/L (14-36) H 06/09/24 04:04
ALT 67 U/L (0-35) H 06/09/24 04:04
Alkaline Phosphatase 241 U/L (38-126) H 06/09/24 04:04
Total Protein 5.5 g/dl (6.3-8.2) L 06/09/24 04:04
Albumin 1.5 g/dl (3.5-5.0) L 06/09/24 04:04
Physical Exam
-
Intubated and sedated
Abdomen softly distended, unable to assess tenderness
NG tube in place
[2024-06-09 11:51] LABS: Glucose - Point of Care 139 mg/dl (70-99)
--- NOTE | 2024-06-09 12:00 | PTCARENOTE ---
Bilateral foot dressings changed per orders...see interventions. No major changes in physical assessment. Cat scans ordered. IR consulted for new central line. Will continue to monitor closely.
--- NOTE | 2024-06-09 12:07 | W.PN.INTV ---
Today's Communication / Plan
Recommendations
Mechanical ventilation setting adjusted
Hopefully can lighten up sedation
Continue TPN
Obtain CT chest, abdomen pelvis and head due to persistent leukocytosis
Follow thrombocytopenia-May be from underlying liver disease and multiple other factors
Hold Lovenox
Wait for HIT analysis
Interventional radiology consulted to assess for new access and replace left subclavian triple-lumen cath
May need to repeat upper and lower extremity ultrasounds
Continue sedation
Prognosis poor
Assessment
-
34-year-old female with complex medical history including prolonged hospital stay in October 2023 for drug relapse, history of overdose/polysubstance abuse, prolonged mechanical ventilation, eventual right upper extremity amputation secondary to
necrotizing fasciitis/cellulitis, brought to [place] by mother, immediately admitted to [facility] for GI issues, followed by hospital stay at [facility] for GI issues, recurrent small bowel obstruction, recent hospital stay at
[facility] for 1 month in March 2024, treated for hepatic encephalopathy, small bowel obstruction, improved with NG tube decompression. Now returns with similar symptom complex admitted 05/11/2024 for recurrent small bowel obstruction,
pain syndrome, refusal of care at times (NG tube, PT/OT, medications), now transferred to ICU 06/02 for progressive hypoxia, bilateral infiltrates requiring intubation and mechanical ventilation
Acute hypoxic respiratory failure-ARDS post aspiration.
Intubated 06/03/2024
Progressive bilateral infiltrates
Suspect aspiration pneumonitis
Lung injury, early ARDS
Hypotension, possible sepsis versus hypovolemia
Leukocytosis
Hypokalemia/hypomagnesemia
Recurrent small bowel obstruction
Dilated small bowel per imaging
Possible stricture, possible inflammatory bowel disease
Endoscopy at outside hospital, no definitive diagnosis of Crohn's
Chronic steroid therapy per records
Prednisone 50 mg in the past
Liver cirrhosis, hepatitis C
Untreated
Ascites with paracentesis in the past
Hepatic encephalopathy with elevated ammonia in the past
Hypoalbuminemia, severe protein/calorie malnutrition
Chronic pain syndrome
Anemia
Required transfusion x 2, last 06/02
Right great hallux osteomyelitis
Status post amputation
Conditions present prior to admission
Prolonged hospital stay October 2023, [place]
VDRF
Right upper extremity amputation secondary to necrotizing fasciitis entheses
Required HD (pt refused to continue per Father)
Anxiety disorder/bipolar disorder
Polysubstance abuse, IV drug abuse
On Suboxone in the past
Drug use intermittently since age of 15 according to father
Multiple rehabilitation efforts in the past
Chronic lower extremity weakness, sedentary/bedbound since October 2023
Plan/recommendations
Remains critically ill.
Deeply sedated with fentanyl/propofol, vecuronium as needed
No longer requiring vasopressors.
Continue with current plan:
Maintain volume-cycled ventilation -day #6
AC 16/420/8/45%
Ppk 24, Pplat 22
ABG 06/09/2024: 7.46/38/89 on above settings.
Indicates improvement pulmonary mechanics.
-
Chest x-ray 06/05/2024: Rotated to the left. Endotracheal tube in place. Slightly improved bilateral infiltrates. No pneumothorax.
Chest x-ray 06/08/2024: Persistent bilateral pulmonary infiltrates, slightly better on the right.
-
-
Maintain sedation, propofol/fentanyl, vecuronium as needed-no plans for sedation breaks at this point.
Status post nebulized epoprostenol started 06/04, wean overnight 06/05 per protocol-discontinued 06/06/2024. Tolerated.
Rotational bed
Status post proning 06/06/2024, supine position personal protection specialist 06/07/2024.
-
As pulmonary mechanics are improving with decrease sedation and evaluate readiness for spontaneous breathing trial.
-
Improved hemodynamics.
Not requiring vasopressors.
No further IV fluids
Continue IV hydrocortisone, decreased to every 12 hours 06/08/2024. Has not required vasopressors. Will continue to decrease over the next 48 to 72 hours to off.
-
Echocardiogram with normal biventricular function, PA pressure 31
Responded well to Lasix. BUN increasing. Hold diuresis for today. Will reevaluate on a daily basis.
-
Leukocytosis rising: Multiple sources possible including intra-abdominal. Not moving bowels.
Abdominal film 06/08/2024: Nonspecific bowel pattern. No subdiaphragmatic air
Ultrasound of the abdomen 06/08/2024: Severe diffuse hepatic steatosis. Small volume ascites. No sonographic evidence of cholelithiasis or obstruction
-
Continue with antibiotics for now, presently on meropenem-defer to infectious disease-Discussed with infectious disease due to 2024 continue IV metronidazole and oral vancomycin.
IV meropenem..
Afebrile
Patient has multiple potential sources of infection
Blood cultures 06/08/2024-so far negative
Respiratory culture with usual respiratory starla
Negative influenza
Subclavian triple-lumen catheter will need to be exchanged at some point. Patient has very difficult access, PICC line has been tried. Right upper extremity amputated. Interventional radiology will recheck potential of switching triple-lumen
catheter site versus PICC line
Trying to avoid femoral lines. Patient has a femoral arterial line. No other sites able to be obtained.
-
Thrombocytopenia: Multiple etiologies including drug-induced, HIT, advanced liver disease.
Decreased fibrinogen and D-dimer increased could be seen in patient with liver disease.
PTT and INR are normal.
No evidence for bleeding diathesis
Hold Lovenox for now, HIT panel was sent 06/08/2024
Daily CBCs
Monitor for bleeding
-
To evaluate persistent leukocytosis: Will obtain CT chest abdomen and pelvis. CT abdomen with IV contrast evaluate for portal vein thrombosis as well.
If CT chest abdomen pelvis rule out any ongoing active collection or infection-will obtain ultrasound of the upper and lower extremities rule out DVT. If DVT is present temporarily argatroban will be used for anticoagulation
-
Anemia: Patient received 2 units of PRBC since hospital stay, last being 06/02
Multifactorial. Ongoing. Blood loss, chronic disease.
Given risk of lung injury process, would minimize transfusion as able
Follow-up for bleeding, no evidence of active bleeding at this time
Follow urine output-renal function is normal.
Alva catheter in place
Patient with history of dialysis for prolonged period in October 2023 while in [place].
Continues with TPN. Has required TPN throughout hospital stay. Unfortunate patient with protein calorie malnutrition
Hypoalbuminemia noted-patient is in anasarca.
NG tube in place, maintain to suction especially when prone
Dilated small bowel loops based on prior studies
Medications per NG tube if okay with surgery
DVT prophylaxis: Hold Lovenox today 06-09-2024-HIT pending
GI prophylaxis: Remains on pantoprazole
Dr. Haines Updated mother and father at bedside at length 06/06/2024, 06/07/2024, 06/08/2024-06/09/2024. All questions answered.
Discussed possibility of tracheotomy, we also discussed possibility of DNR.
Prognosis continues to be very poor.
-
See prior update note for transfer to tertiary care center. No clear pathway for transfer to [facility]
Family aware
Prior discussion:
Father admits that patient has been difficult, refusing therapy multiple times. She listens to him when he tells her to do it but when he leaves the room, she reverts to refusing care and therapy
He also is asking 'why are we giving her pain medicines? She is an addict?' I reviewed with father that when patient is screaming in excruciating pain, we cannot ignore this. We have to find a happy medium between controlling pain and avoiding
oversedation. This will be difficult given her drug abuse/polysubstance abuse history. Father states she has been using drugs probably since age of 15
Father also admits that patient has refused medications in the past, refuses placement of NG tube, refused nutrition when offered. Father also upset that daughter is not getting nutrition. However upon reviewing records, with every attempt to
advance diet, patient developed significant abdominal pain.
I also reviewed with father and stepmother worst-case scenario where patient progresses to multisystem organ failure, developed complication of prolonged hospital stay, prolonged mechanical ventilation such as thromboembolic disease, recurrent
infections, bleeding, cardiac complications, renal complications. He did not want to hear this but I proceeded with stepmother as father stepped away. I told the stepmother that it is important for him to be hopeful of outcome but to be aware of
potential complications.
Father confirmed full CODE STATUS
Will request records from [facility]
The above was reviewed at length with critical care nursing, respiratory care, primary service, infectious disease, surgery.
Critical care statement: A total of 45 minutes of critical care time was provided for this patient today. This includes management of unstable vital signs, evaluation of the patient at bedside, reviewing the patient's pertinent medical records
including ventilator settings, arterial blood gases, radiographs, microbiology, laboratory evaluations and discussion with primary team, critical care nursing, and respiratory therapy.
Subjective Dataa
Subjective Data
Date of Service:
Date of Service: June 09, 2024
Chief Complaint: Dietetic Technician Registered Follow Up (ARDS) and Vent Management Follow Up
Subjective:
Critically ill, intubated on mechanical ventilation.
Not on vasopressors
Unable to provide history
Review of Systems
General: Unobtainable - Sedation
Objective Data
Data Reviewed
Vital Signs / I&O / Oxygen:
Vital Signs
Temp Pulse Resp BP Pulse Ox
99.4 F 89 23 130/72 95
06/09/24 08:24 06/09/24 10:00 06/09/24 10:00 06/09/24 08:30 06/09/24 10:00
Intake and Output
06/08/24 06/09/24 06/10/24
06:59 06:59 06:59
Intake Total 2248.4 / 2325.5 2627.4 / 2627.4
Output Total 1427 / 1450 1794 / 1794
Balance 821.4 / 875.5 833.4 / 833.4
SaO2 [A/C] 95
SaO2 95
Nasal Cannula flow liters per 60
minute
Physical Exam
General: Comfortable and Other (Left subclavian central line, lying supine)
HEENT: Normocephalic
Cardiovascular: S1-S2, Regular Rhythm (Tachycardic), Murmur (n), Rub (n), Peripheral Edema (n) and Other (Right upper extremity amputation, toe dressing)
Respiratory: Wheeze (n), Crackles (few posteriorly), Rhonchi (few), Non-Labored Respirations, Stridor (n) and ET Tube
GI: NG Tube and Other (Absent bowel sounds)
Neurology: Unresponsive (Sedated) and Other (Has respiratory effort)
Skin: Cyanosis (n), Jaundice (n) and Rash (n)
Labs/Micro/Reports
Lab Data
06/09/24 04:04
06/09/24 04:04
Laboratory Results
06/08/24 06/09/24 06/09/24
12:12 04:04 05:13
PT 16.3 H
INR 1.26
APTT 34.6
pH 7.36 7.35
pCO2 42 H 45 H
pO2 61 L 127 H
HCO3 23.7 24.8
O2 Delivery Level Acs/380/28/+ 10
06/09/24
10:44
PT
INR
APTT
pH 7.46 H
pCO2 38 H
pO2 89
HCO3 27.0
O2 Delivery Level
Microbiology
06/08/24 11:45 Blood/Venous Blood Culture - Preliminary
No Growth in 24 hours- Final report to follow
06/08/24 10:10 Blood/Venous Blood Culture - Preliminary
No Growth in 24 hours- Final report to follow
--- NOTE | 2024-06-09 13:47 | CM ---
CM following re: discharge planning.
Discussed in Rounds, reviewed pt's chart, met with pt. per Rounds meeting, pt remains intubated, continue TPN, prognosis poor, continue supportive care.
Pt is a LTC resident at [facility] and family requested a new SNF. Referrals to many SNFs noted.
D/C plan: uncertain at this time and will depend on pt's progress.
CM will follow with discharge plan updates as hospitalization progresses
--- NOTE | 2024-06-09 14:15 | PTCARENOTE ---
Pt taken to cat scan...ordered tests completed. Pt taken to IR for possible exchange of central line.
--- NOTE | 2024-06-09 15:01 | W.PN.HOSP.TC ---
Today's Communication/Plan
-
ARDSnet protocol
Wean sedation as tolerated
Continue antibiotics
Replace subclavian catheter
Stop Lovenox, await HIT panel
Castro scan, follow-up fever curve, white count
TPN
Assessment / Plan
Assessment / Plan
Gen-sedated, intubated, supine
HEENT-NC, AT, anicteric, clear oral mm
Neck-supple
CV-reg, no M, +S1/S2, tachy; subclavian line in place
Lungs-clear B/L
Abd-soft, NT, ND
Ext-no edema
Musculoskeletal-no cyanosis, clubbing, bilateral foot drop
Skin-warm and dry
Acute hypoxic respiratory failure
-unfortunately worsening respiratory failure and now has ARDS physiology. LIkely 2/2 to aspiration pneumonitis
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
-patient refused transfer to [place] prior to intubation as per records and POA, despite initially possibly an ECMO candidate
-Prone positioning per protocol. Now supinated, PF ratio improving. No plans of proning at this time
�Continue AC/VC
� Continue ventilator settings, adjust as necessary� ARDSnet protocol for weaning
� Continue sedation, paralytics as needed if bucking the vent
� Status post nebulized epoprostenol, completed today
�Maintain euvolemia, slight net negative - diuretics dailty
#Septic shock
��Possibly secondary to pneumonia/ARDS
� CT imaging for persistent leukocytosis
�Vasopressors weaned off
� Continue stress dose steroids, patient was on steroids in the past - wean
� Wean steroids as tolerated
� Intermittent diuresis now with anasarca
�Continue meropenem for today
�ID consulted
-monitor cbc - possibly 2/2 to sbo
#Recurrent SBO
-unclear etiology of bowel obstruction, perhaps ischemia induced strictures.
- She does not have a confirmed diagnosis of inflammatory bowel disease.
-High risk for operative intervention per surgical service given low prealbumin level, severe malnutrition and cirrhosis.
- Prealbumin remains low despite ongoing TPN. Last prealbumin was 5.2. Discussed with Dr. Godwin. I am not sure prealbumin is reliable in the setting of her underlying cirrhosis, critical illness.
-NG tube with minimal output. Continue suction; minimal bowel sounds
�TPN
� Trend labs�tentative plan for delayed operative intervention following steroid wean improvement in her nutritional/liver disease status
Intractable pain syndrome -
-complaining of severe bilateral lower extremity pain and muscle cramps which is chronic.
-Was on IV Dilaudid every 4 hours as needed prior to intubation.
-Currently on fentanyl IV as needed.
Acute anemia
Pancytopenia
� No evidence of acute bleeding
-most likely 2/2 to sepsis antibiotics although continued downtrend
-HIT panel ordered
� Stop Lovenox
� IR consulted for replacement of subclavian triple-lumen cath
�Coags normal, can hold on cryoprecipitate at this time, no clinical evidence of DIC at this time
Pancolitis
-C. difficile antigen positive toxin negative recently treated with oral vancomycin.
#Transaminitis
-suspect 2/2 to TPN and /or DILI
-monitor
-Already known hep C carrier
�Abdominal ultrasound with severe diffuse hepatic steatosis, small volume ascites, no evidence of cholelithiasis or biliary obstruction
Cirrhosis secondary to untreated hepatitis C.
Hepatic encephalopathy
Recurrent ascites.
Anasarca
Severe protein/calorie malnutrition -continue TPN.
Hypovolemic hyponatremia -resolved.
Hypokalemia -improved.
Acute on chronic anemia
-Transfused 3 units of blood so far this admission.
- No obvious evidence of bleeding.
-Doubt hemolysis with normal bilirubin.
- Given positive fluid status of 4.8 L, suspect hemodilution induced anemia due to IV fluid administration. Monitor hemoglobin for now. Transfuse if below 7.
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
Polysubstance abuse, former IVDA on Suboxone.
Anxiety disorder
Multiple skin breakdowns
Chronic bilateral lower extremity weakness, bedbound status
History of IVDA
Full code
Dispo: Father who is the POA states that he does not want her transferred under any circumstances to [facility]. He understands that she could potentially deteriorate and in our hospital. In addition, he states that Miriam
also does not want to be transferred to [facility].; [employer] explained potential deterioration including multiorgan failure to family.
Total time spent on today's encounter was 52 minutes which included time spent in counseling the patient/family regarding diagnosis and treatment plan as listed above, goals of care, and symptom management. Case was discussed with nursing staff,
specialists, and care coordinators/case management. All labs and imaging personally reviewed by me. Remainder the time spent in detailed review of previous records, lab data, imaging, and other medical provider documentation.
Anticipated Discharge: > 48 hours
Subjective/Interval History
-
Date of Service: June 09, 2024
Platelets downtrending
HIT panel ordered
Objective Data
-
Labs:
Laboratory Results
06/09/24 06/09/24 06/09/24
04:04 05:13 10:44
WBC 36.6 H
Hgb 7.2 L
Hct 22.2 L
Plt Count 71 L D
PT 16.3 H
INR 1.26
APTT 34.6
HCO3 24.8 27.0
Sodium 140
Potassium 4.1
Chloride 113 H
Carbon Dioxide 27
BUN 60 H
Creatinine 0.4 L
Glucose 132 H
Calcium 8.0 L
Total Bilirubin 1.8 H
AST 114 H
ALT 67 H
Alkaline Phosphatase 241 H
Vital Signs:
Vital Signs
Temp Pulse Resp BP Pulse Ox
99.3 F 89 23 130/72 95
06/09/24 12:13 06/09/24 10:00 06/09/24 10:00 06/09/24 08:30 06/09/24 11:15
I&O
06/08/24 06/09/24 06/10/24
06:59 06:59 06:59
Intake Total 2248.4 / 2325.5 2627.4 / 2697.5 420.6 / 420.6
Output Total 1427 / 1450 1794 / 1944 850 / 850
Balance 821.4 / 875.5 833.4 / 753.5 -429.4 / -429.4
Review of Systems
-
History Source: Patient
All other systems: Not reviewed unless documented
Data Reviewed
-
Diagnostic Radiology: Report Reviewed by me
CT Scan: Report Reviewed by me
Labs: Labs Reviewed by me
--- NOTE | 2024-06-09 15:13 | W.PN.IRAD.PR ---
Procedure Note
-
Initial attempt placement RIJ central venous catheter unsuccessful secondary to distal IJ occlusion. Right femoral CVC was placed under US and fluoro guidance, catheter ready for use.
--- NOTE | 2024-06-09 16:00 | PTCARENOTE ---
Returned from IR. Full linen change and CHG bath completed. All new IV tubings hung and dated. VAT made aware and order rec'd for removal of LSC TLC. No major changes in physical assessment. Will continue to monitor closely.
--- NOTE | 2024-06-09 16:33 | W.PN.UPDATE ---
Update Note
Progress Note Update
CT head without significant acute abnormalities other than moderate sinusitis
CT chest with bilateral infiltrates consistent with ARDS, bilateral effusions, anasarca.
Abdominal CT without acute abnormalities collections.
Given ongoing thrombocytopenia, as planned will obtain upper and lower extremity ultrasounds to rule out DVT.
If DVT positive, will need to consider argatroban until HIT is ruled out.
[2024-06-09 18:06] LABS: Glucose - Point of Care 143 mg/dl (70-99)
--- NOTE | 2024-06-09 20:00 | SUR.PHASEI ---
assumed care, pt intubated and sedated, unresponsive, pupils 3, NSR on the monitor doppler pedals, +4 anasarca tubi spanish moss picker, ETT 8 22 @ lip, AC / SpO2 95%, see MAR for meds given for vent dysync, rhonchi and coarse throughout, thick clear
secretins orally and down ETT, R nare NGT 65cm to low intermittent suction, no BS round distended, temp sensing correia yellow output, skin and wounds per worklist, sports bed, TPN, prop, fent, L fem A-line zeroed, R fem TL, mother @ bedside updated
and emotional support provided, otherwise refer to worklist
[2024-06-09] MEDS: Parenteral Nutrition, Central 1240 IV (21:10)
[2024-06-09] MEDS: MELATONIN 5 MG TUBE (21:15)
[2024-06-09] MEDS: REMERON 15 MG TUBE (21:15)
[2024-06-09 23:34] LABS: Glucose - Point of Care 169 mg/dl (70-99)
[2024-06-10] MEDS: NOVOLOG FLEXPEN-LOW RESISTANCE 1 UNITS SC (00:06)
[2024-06-10] MEDS: FIRVANQ 125 MG TUBE ×5 (00:06→23:26)
--- NOTE | 2024-06-10 00:18 | PTCARENOTE ---
systems reviewed, blood sugar 169 coverage ordered and given per MAR, no changes from previous assessment, otherwise refer to documentation.
[2024-06-10] MEDS: SUBLIMAZE 100 MCG IV ×8 (00:32→18:34)
[2024-06-10] MEDS: SUBLIMAZE 100 IV ×4 (02:34→23:25)
[2024-06-10] MEDS: MERREM 500 MG IV ×4 (04:04→21:04)
[2024-06-10] MEDS: STERILE WATER FOR INJECTION 10 ML IV ×4 (04:05→21:04)
[2024-06-10] MEDS: SOLU-CORTEF 50 MG IV (05:01)
[2024-06-10] MEDS: FLAGYL 500 MG 100 IV ×3 (05:02→21:04)
[2024-06-10 05:20] VITALS: BMI 27.0
[2024-06-10 05:29] LABS: Carbon Dioxide 28 mmol/L (22-30); Chloride 113 mmol/L (98-107); Estimated Creatinine Clearance 119 ml/min; Sodium 142 mmol/L (135-145); eGFR > 60.00
[2024-06-10 05:41] LABS: Blood Urea Nitrogen 54 mg/dl (7-17); Glucose 121 mg/dl (70-99); Magnesium 2.2 mg/dl (1.6-2.3); Potassium 3.5 mmol/L (3.5-5.1)
[2024-06-10 05:58] LABS: Glucose - Point of Care 134 mg/dl (70-99)
[2024-06-10 06:09] LABS: Hematocrit 21.2 % (37.0-47.0); Hemoglobin 6.8 g/dL (12.0-16.0); Mean Corp Hgb Conc. 32.1 g/dL (33.0-37.0); Mean Corpuscular Hgb 29.6 pg (27.0-31.0); Mean Corpuscular Volume 92.2 fL (81.0-99.0); Platelet Count 87 10^3/uL (130-400); Red Cell Dist. Width 24.6 % (11.5-14.5); White Blood Cell Count 28.8 10^3/uL (4.8-10.8)
[2024-06-10] MEDS: DIPRIVAN 100 IV ×3 (06:17→22:19)
--- NOTE | 2024-06-10 06:37 | PTCARENOTE ---
systems reviewed, R fem dressing changed, labs sent, Hgb 6.8 LABOR ECONOMIST notified, type and screen new one sent, awaiting results 1 unit of PRBC ordered, otherwise refer to documentation.
[2024-06-10] MEDS: REFRESH CELLUVISC GEL 1 DROPS OPHTH ×2 (08:26→19:52)
[2024-06-10] MEDS: MIRALAX 17 GRAMS TUBE (08:26)
[2024-06-10] MEDS: FLEXERIL 10 MG TUBE ×3 (08:26→21:05)
[2024-06-10] MEDS: LASIX 20 MG IV (08:26)
[2024-06-10] MEDS: NEURONTIN 400 MG TUBE ×3 (08:27→21:05)
[2024-06-10] MEDS: NSS (PRESERVATIVE FREE) 10 ML IV (08:27)
[2024-06-10] MEDS: PROTONIX IV 40 MG IV (08:27)
--- NOTE | 2024-06-10 09:20 | W.PN.GS2 ---
Today's Communication / Plan
-
TPN renewed
Assessment / Plan
-
Assessment: 34 yo female with h/o IVDA presenting with recurrent obstructive symptoms secondary to stricture of unclear etiology Crohns vs ischemic. ?history of Crohn's for which she has been on steroids without much benefit as well as recent
ischemic event in October during a drug OD which is when her GI symptoms began. Recently treated for pancolitis, C. difficile toxin negative antigen positive completed course of vancomycin.
Patient remains critically ill
Severe protein calorie malnutrition
Surgery following for recurrent obstructive symptoms secondary to stricture of unclear etiology: Crohns vs ischemic (more likely)
Plan:
-- Continue NGT to suction, no enteral feedings -due to chronic partial small bowel obstruction
-- TPN renewed -no lipids
-- Continue to trend labs
-- CT scan reviewed, anasarca and some free fluid thought to be ascites noted in the abdomen otherwise no other abnormality.
General surgery will follow along for TPN without lipids
Time Spent
Total Time Spent with Patient (in minutes): 20
Subjective Data
-
Date of Service: June 10, 2024
Patient remains intubated and sedated
Objective Data
-
Intake and Output
06/09/24 06/10/24 06/11/24
06:59 06:59 06:59
Intake Total 2627.4 / 2697.5 2025.8 / 2100.7 149.8 / 149.8
Output Total 1794 / 1944 1725 / 1725 160 / 160
Balance 833.4 / 753.5 300.8 / 375.7 -10.2 / -10.2
Intake:
IV fluids (Total) 554.4 / 577.5 549.8 / 572.7 45.8 / 45.8
fent 300.0 / 312.5 300.0 / 312.5 25.0 / 25.0
prop 254.4 / 265.0 249.8 / 260.2 20.8 / 20.8
IV piggybacks 200 / 200
TPN/PPN 1233 / 1280 1126 / 1178 104 / 104
Amount instilled into GI Tube ( 640 / 640 350 / 350
Total)
Robeson Sump 640 / 640 350 / 350
Output:
Gastrointestinal tube output ( 150 / 150
Total)
Robeson Sump 150 / 150
Urine, Alva 1644 / 1794 1725 / 1725 160 / 160
Vital Signs
Temp Pulse Resp BP Pulse Ox
98.4 F 99 23 130/72 92
06/10/24 08:23 06/10/24 05:00 06/10/24 05:00 06/09/24 08:30 06/10/24 07:40
Lab Results
06/10/24 04:41
06/10/24 04:41
Calcium 8.0 mg/dl (8.4-10.2) L 06/10/24 04:41
Phosphorus 4.0 mg/dl (2.5-4.5) 06/08/24 04:24
Magnesium 2.2 mg/dl (1.6-2.3) 06/10/24 04:41
Total Bilirubin 1.8 mg/dl (0.2-1.3) H 06/09/24 04:04
Direct Bilirubin 0.3 mg/dl (0.0-0.4) 05/11/24 04:38
AST 114 U/L (14-36) H 06/09/24 04:04
ALT 67 U/L (0-35) H 06/09/24 04:04
Alkaline Phosphatase 241 U/L (38-126) H 06/09/24 04:04
Total Protein 5.5 g/dl (6.3-8.2) L 06/09/24 04:04
Albumin 1.5 g/dl (3.5-5.0) L 06/09/24 04:04
Physical Exam
-
GENERAL/NEURO: Intubated and sedated on vent.
Abdomen: Soft, Distended, NG tube in place
--- NOTE | 2024-06-10 09:46 | W.PN.ID1 ---
Date of Service
Date of Service: June 10, 2024
Today's Communication
Continue current antibiotics for today.
Assessment / Plan
Leukocytosis
-Slight improvement today
Fever
- appears resolved. ?drug fever from zosyn, ?ARDS
Recurrent SBO +/- ileus
-Unclear if secondary to Crohn's versus other inflammatory bowel disease.
VDRF
ARDS 2* Asp PNA
Thrombocytopenia
Increase LFT's
Profound protein calorie malnutrition (albumin = 1.5)
Anemia
Hx Cirrhosis
Hx hepatitis C (untreated)
Hx IVDA
Recommendations:
Sputum culture unrevealing; and positive only for normal starla.
Blood cultures thus far have been negative. Wound culture from 05/16 appears to be a superficial culture and reflects superficial colonization only.
Given suspected inflammatory bowel issues, would avoid probiotics.
Leukocytosis trending down.
DDX: acalculous cholecystitis (new elev LFT's) vs. C. diff colitis (no BM due to bowel obstruction), vs line infection vs Candidemia (on TPN) vs other.
Abdominal ultrasound shows severe diffuse hepatic steatosis, but no evidence for cholelithiasis or biliary obstruction. Abdominal flatplate unrevealing.
Repeat blood cultures pending to assess for bacteremia or candidemia (given ongoing TPN)
hx of C. diff colonization ( Ag(+)/toxin (-) in Nov). Unable to send stool for C. diff due to ileuw/obstruction.
Continue empiric IV metronidazole 500mg q8 and Vanco 125mg by tube q6h.
Continue meropenem for now
Follow WBC, vitals, LFTs, platelets.
Patient remains critically ill in intensive care unit on vent support.
Overall prognosis appears progressively dismal for recovery.
Update given to mother who was at the bedside. I recommended continued discussions regarding CODE STATUS and goals of care. She reports that the patient has a living will and I suggested that she review it.
����������������������������������������������������������
Chief Complaint
-: Leukocytosis, Clinical Sepsis and Other (ARDS)
Subjective / Review of Systems
Patient seen and examined. Remains vent dependent at this time. Remains on propofol for sedation.
Review of Systems: No Fever
Vital Signs / Physical Exam
Vital Signs
Vital Signs
Temp Pulse Resp BP Pulse Ox
98.4 F 99 23 130/72 92
06/10/24 08:23 06/10/24 05:00 06/10/24 05:00 06/09/24 08:30 06/10/24 07:40
Physical Exam
Constitutional: Acutely Ill and Chronically Ill
Oropharyngeal: Other (ET tube in place. NG tube in place.)
Cardiovascular: Regular Rate and S1/S2
Pulmonary: Coarse and Other (On vent.)
Gastrointestinal: Soft, Distended (moderate) and Other (No bowel sounds auscultated. Positive anasarca)
Genito-Urinary: Alva and Clear Urine
Extremities: Edema (Upper extremities and lower extremities bilaterally; 4+); Negative Erythema
Skin: Warm and Dry; Negative Rash
Wound: Other (Right hallux amp site with sutures intact. Area clean and dry.)
Neurological: Other (Sedated)
Lines: CVP (bilateral IJ no erythema)
Objective Data
Lab Data
Lab Results
06/10/24 04:41
06/10/24 04:41
PT 16.3 Sec (11.4-14.6) H 06/09/24 05:13
INR 1.26 06/09/24 05:13
APTT 34.6 Sec (23.4-35.0) 06/09/24 05:13
Estimated Creat Clear 119 ml/min 06/10/24 04:41
Lactic Acid 1.1 mmol/L (0.7-2.0) 06/03/24 02:03
Total Bilirubin 1.8 mg/dl (0.2-1.3) H 06/09/24 04:04
AST 114 U/L (14-36) H 06/09/24 04:04
ALT 67 U/L (0-35) H 06/09/24 04:04
Alkaline Phosphatase 241 U/L (38-126) H 06/09/24 04:04
C-Reactive Protein 64.80 mg/L (0.0-10.00) H 05/11/24 04:38
Most recent labs reviewed.
Micro Results:
06/08/24 11:45 Blood Culture - Preliminary
Blood/Venous No Growth in 24 hours- Final report to follow
06/08/24 10:10 Blood Culture - Preliminary
Blood/Venous No Growth in 24 hours- Final report to follow
06/03/24 04:12 Respiratory Culture - Final
Endotracheal Usual Respiratory Starla
Gram Stain - Final
06/03/24 01:46 Influenza Types A & B (VICKEY) - Final
Nasal Swab Negative for Influenza A & B, NAAT
Negative results must be combined with clinical observations
and patient history.
Nucleic Acid Amplification test (NAAT)performed on the
[employer] platform.
05/23/24 14:01 Blood Culture - Final
Blood/Venous No Growth - Final Report
05/26/24 23:16 - Final
Feces/Stool Negative for Norovirus GI and GII.
05/16/24 11:15 Wound Culture - Final
Foot - Right Serratia marcescens
Gram Stain - Final
05/16/24 11:15 Anaerobic Culture - Final
Foot - Right NO ANAEROBES ISOLATED
05/12/24 04:38 Urine Culture - Final
Urine Escherichia coli
05/11/24 22:56 MRSA Screen - Final
Nose No Methicillin Resistant Staphylococcus aureus isolated.
Imaging:
06/04/2024 CXR (portable): Stable bilateral pleural effusions, progressed. Bilateral interstitial and airspace opacities overall slightly progressed from prior exam. Findings again likely represent multifocal pneumonia versus developing ARDS.
06/03/2024 ECHO (TTE): Normal biventricular size and systolic function without regional wall motion abnormalities. EF approximately 55 to 60%. No intracardiac mass or thrombus formation is noted. Please see full dictation for additional detail.
05/17/2024 CT abdomen/pelvis with IV contrast: Significant dilatation of small bowel loops extending into the region of the distal ileum. In the pelvis there is increased enhancement of the wall of several loops of small bowel with slight stranding
of the adjacent fat with suggestion of a transition in caliber in the right pelvis as described. Findings compatible with small bowel obstruction. No evidence of free intraperitoneal air.
Care Review
Plan reviewed with: Physician (Critical Care)
[2024-06-10] MEDS: HYDROPHOR 1 APPLIC TOPICAL (10:24)
[2024-06-10 10:31] VITALS: BP 139/90
[2024-06-10 10:49] VITALS: BP 138/80
[2024-06-10 12:11] LABS: Glucose - Point of Care 149 mg/dl (70-99)
[2024-06-10] MEDS: NOVOLOG FLEXPEN-LOW RESISTANCE SC ×2 (12:12→18:23)
--- NOTE | 2024-06-10 12:46 | W.PN.INTV ---
Today's Communication / Plan
Recommendations
Continue mechanical ventilation without change
Not tolerating sedation breaks due to increased work of breathing or hypoxemia
Continue antibiotics
Transfusion today
Follow CBC
Wait for HIT analysis
TPN
Poor prognosis
Assessment
-
34-year-old female with complex medical history including prolonged hospital stay in October 2023 for drug relapse, history of overdose/polysubstance abuse, prolonged mechanical ventilation, eventual right upper extremity amputation secondary to
necrotizing fasciitis/cellulitis, brought to [place] by mother, immediately admitted to [facility] for GI issues, followed by hospital stay at [facility] for GI issues, recurrent small bowel obstruction, recent hospital stay at
[facility] for 1 month in March 2024, treated for hepatic encephalopathy, small bowel obstruction, improved with NG tube decompression. Now returns with similar symptom complex admitted 05/11/2024 for recurrent small bowel obstruction,
pain syndrome, refusal of care at times (NG tube, PT/OT, medications), now transferred to ICU 06/02 for progressive hypoxia, bilateral infiltrates requiring intubation and mechanical ventilation
Acute hypoxic respiratory failure-ARDS post aspiration.
Intubated 06/03/2024
Progressive bilateral infiltrates
Suspect aspiration pneumonitis
Lung injury, early ARDS
Hypotension, possible sepsis versus hypovolemia
Leukocytosis
Hypokalemia/hypomagnesemia
Recurrent small bowel obstruction
Dilated small bowel per imaging
Possible stricture, possible inflammatory bowel disease
Endoscopy at outside hospital, no definitive diagnosis of Crohn's
Chronic steroid therapy per records
Prednisone 50 mg in the past
Liver cirrhosis, hepatitis C
Untreated
Ascites with paracentesis in the past
Hepatic encephalopathy with elevated ammonia in the past
Hypoalbuminemia, severe protein/calorie malnutrition
Chronic pain syndrome
Anemia
Required transfusion x 2, last 06/02
Right great hallux osteomyelitis
Status post amputation
Conditions present prior to admission
Prolonged hospital stay October [id number] [place] [address]
VDRF
Right upper extremity amputation secondary to necrotizing fasciitis entheses
Required HD (pt refused to continue per Father)
Anxiety disorder/bipolar disorder
Polysubstance abuse, IV drug abuse
On Suboxone in the past
Drug use intermittently since age of 15 according to father
Multiple rehabilitation efforts in the past
Chronic lower extremity weakness, sedentary/bedbound since October 2023
Plan/recommendations
Remains critically ill.
Deeply sedated with fentanyl/propofol, vecuronium as needed
No longer requiring vasopressors.
Continue with current plan:
Maintain volume-cycled ventilation -day #6
AC 16/420/8/45%
Ppk 30, Pplat 27(patient now has respiratory effort)
ABG 06/09/2024: 7.46/38/89 on above settings.
Indicates improvement pulmonary mechanics.
-
Chest x-ray 06/05/2024: Rotated to the left. Endotracheal tube in place. Slightly improved bilateral infiltrates. No pneumothorax.
Chest x-ray 06/08/2024: Persistent bilateral pulmonary infiltrates, slightly better on the right.
Chest x-ray 06/10/2024, stable bilateral infiltrates. ET tube 7 cm above the jason, no pneumothorax
ET tube will be advanced 4 cm
-
Maintain sedation, propofol/fentanyl, vecuronium as needed-with sedation breaks, tachypneic and developed hypoxemia.
Will continue to attempt sedation breaks per protocol.
-
Status post nebulized epoprostenol started 06/04, wean overnight 06/05 per protocol-discontinued 06/06/2024. Tolerated.
Rotational bed
Status post proning 06/06/2024, supine position child specialist 06/07/2024.
-
As pulmonary mechanics are improving with decrease sedation and evaluate readiness for spontaneous breathing trial. Not ready at this point 06/10/2024.
-
Improved hemodynamics.
Not requiring vasopressors.
No further IV fluids
Continue IV hydrocortisone, decreased to every 12 hours 06/08/2024. Has not required vasopressors. Will continue to decrease over the next 48 to 72 hours to off.
-
Echocardiogram with normal biventricular function, PA pressure 31
Responded well to Lasix. BUN increasing. Hold diuresis for today. Will reevaluate on a daily basis.
-
Leukocytosis rising: Multiple sources possible including intra-abdominal. Not moving bowels.
Abdominal film 06/08/2024: Nonspecific bowel pattern. No subdiaphragmatic air
Ultrasound of the abdomen 06/08/2024: Severe diffuse hepatic steatosis. Small volume ascites. No sonographic evidence of cholelithiasis or obstruction
-
Continue with antibiotics for now, presently on meropenem-defer to infectious disease- continue IV metronidazole and oral vancomycin.
IV meropenem..
Afebrile
Patient has multiple potential sources of infection
Blood cultures 06/08/2024-so far negative
Respiratory culture with usual respiratory starla
Negative influenza
Subclavian triple-lumen catheter discontinued 06-09-2023
Femoral line obtained with interventional radiology
Unfortunately there is no other exit points
Unable to place PICC line patient has stenotic major veins. Likely due to her history of IVDA.
Femoral arterial line in place
-
Thrombocytopenia: Multiple etiologies including drug-induced, HIT, advanced liver disease.
Decreased fibrinogen and D-dimer increased could be seen in patient with liver disease.
PTT and INR are normal.
No evidence for bleeding diathesis
Hold Lovenox for now, HIT panel was sent 06/08/2024
Daily CBCs
Monitor for bleeding
-
CT chest abdomen pelvis without acute abnormalities. Continues to have significant bilateral infiltrates, pleural effusions. No acute collections intra-abdominal.
CT head no acute abnormalities. Mild sinusitis
Upper and lower extremity Dopplers without acute DVT
Platelet count today slightly improved.
HIT analysis pending
Continue to hold Lovenox for today
If platelet count improved from HIT negative will restart. Suspicion for HIT opinion is not very high but possible
-
Anemia: Patient received 2 units of PRBC since hospital stay, last being 06/02
Multifactorial. Ongoing. Blood loss, chronic disease.
Additional unit of packed red blood cells will be given to due to hemoglobin less than 7 06/10/2024
No evidence for bleeding.
Will continue to minimize transfusion given underlying acute lung injury.
-
Follow urine output-renal function is normal.
Alva catheter in place
Patient with history of dialysis for prolonged period in October 2023 while in [place].
Continues with TPN. Has required TPN throughout hospital stay. Unfortunate patient with protein calorie malnutrition
Hypoalbuminemia noted-patient is in anasarca.
NG tube in place, maintain to suction especially when prone
Dilated small bowel loops based on prior studies
Medications per NG tube if okay with surgery
DVT prophylaxis: Hold Lovenox today 06-09-2024-HIT pending
GI prophylaxis: Remains on pantoprazole
Dr. Haines Updated mother and father at bedside at length 06/06/2024, 06/07/2024, 06/08/2024-06/09/2024, 06/10/2024. All questions answered.
Discussed possibility of tracheotomy, we also discussed possibility of DNR.
Prognosis continues to be very poor.
-
See prior update note for transfer to tertiary care center. No clear pathway for transfer to [facility]
Family aware
Prior discussion:
Father admits that patient has been difficult, refusing therapy multiple times. She listens to him when he tells her to do it but when he leaves the room, she reverts to refusing care and therapy
He also is asking 'why are we giving her pain medicines? She is an addict?' I reviewed with father that when patient is screaming in excruciating pain, we cannot ignore this. We have to find a happy medium between controlling pain and avoiding
oversedation. This will be difficult given her drug abuse/polysubstance abuse history. Father states she has been using drugs probably since age of 15
Father also admits that patient has refused medications in the past, refuses placement of NG tube, refused nutrition when offered. Father also upset that daughter is not getting nutrition. However upon reviewing records, with every attempt to
advance diet, patient developed significant abdominal pain.
I also reviewed with father and stepmother worst-case scenario where patient progresses to multisystem organ failure, developed complication of prolonged hospital stay, prolonged mechanical ventilation such as thromboembolic disease, recurrent
infections, bleeding, cardiac complications, renal complications. He did not want to hear this but I proceeded with stepmother as father stepped away. I told the stepmother that it is important for him to be hopeful of outcome but to be aware of
potential complications.
Father confirmed full CODE STATUS
Will request records from [facility]
The above was reviewed at length with critical care nursing, respiratory care, primary service, infectious disease, surgery.
Critical care statement: A total of 40 minutes of critical care time was provided for this patient today. This includes management of unstable vital signs, evaluation of the patient at bedside, reviewing the patient's pertinent medical records
including ventilator settings, arterial blood gases, radiographs, microbiology, laboratory evaluations and discussion with primary team, critical care nursing, and respiratory therapy.
Subjective Dataa
Subjective Data
Date of Service:
Date of Service: June 10, 2024
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
Subjective:
Sedated
Critically ill
On mechanical ventilation
Review of Systems
General: Unobtainable - Sedation
Objective Data
Data Reviewed
Vital Signs / I&O / Oxygen:
Vital Signs
Temp Pulse Resp BP Pulse Ox
98.9 F 89 27 138/80 96
06/10/24 12:26 06/10/24 10:49 06/10/24 10:49 06/10/24 10:49 06/10/24 11:48
Intake and Output
01/08/0206/10/24 06/11/24
06:59 06:59 06:59
Intake Total 2627.4 / 2697.5 2025.8 / 2100.7 579.4 / 579.4
Output Total 1794 / 1944 1725 / 1725 1175 / 1175
Balance 833.4 / 753.5 300.8 / 375.7 -595.6 / -595.6
SaO2 [A/C] 93
SaO2 96
Nasal Cannula flow liters per 60
minute
Physical Exam
General: Comfortable and Other (Left subclavian central line, lying supine)
HEENT: Normocephalic
Cardiovascular: S1-S2, Regular Rhythm (Tachycardic), Murmur (n), Rub (n), Peripheral Edema (n) and Other (Right upper extremity amputation, toe dressing)
Respiratory: Wheeze (n), Crackles (few posteriorly), Rhonchi (few), Non-Labored Respirations, Stridor (n) and ET Tube
GI: NG Tube and Other (Absent bowel sounds)
Neurology: Unresponsive (Sedated) and Other (Has respiratory effort)
Skin: Cyanosis (n), Jaundice (n) and Rash (n)
Labs/Micro/Reports
Lab Data
06/10/24 04:41
Microbiology
06/08/24 11:45 Blood/Venous Blood Culture - Preliminary
No Growth in 48 hours- Final report to follow
06/08/24 10:10 Blood/Venous Blood Culture - Preliminary
No Growth in 48 hours- Final report to follow
[2024-06-10] MEDS: KCL 160 MEQ IV (13:02)
[2024-06-10 13:04] VITALS: BP 127/74
[2024-06-10] MEDS: VERSED 5 MG IV (13:52)
--- NOTE | 2024-06-10 13:56 | PTCARENOTE ---
Pt sedated on Fentanyl and propofol with PRN Fentanyl IVP and Versed IVP.
Pt becomes very agitated at time. Tachypneic to 45 with decrease in SpO2 to 80%.
Received one unit of PRBC per order.
All other assessments per charting. Mother at bedside.
--- NOTE | 2024-06-10 14:06 | CM ---
CM following re: discharge planning.
Discussed in Rounds, reviewed pt's chart, met with pt. Per Rounds meeting, pt remains intubated, prognosis poor, continue supportive care.
Pt is a LTC resident at [facility] and family requested a new SNF. Referrals to many SNFs noted.
D/C plan: uncertain at this time and will depend on pt's progress.
CM will follow with discharge plan updates as hospitalization progresses
[2024-06-10 16:16] LABS: % Basophils 0.4 % (0-2); % Eosinophils 0.1 % (0-6); % Immature Granulocytes 10.6 % (0-0.5); % Lymphocytes 10.9 % (20.5-51.1); % Monocytes 5.7 % (1.7-9.3); % Neutrophils 72.3 % (42.2-75.2); Absolute Basophils 0.1 10^3/uL (0-0.2); Absolute Lymphocytes 3.1 10^3/uL (1.2-3.4); Absolute Monocytes 1.7 10^3/uL (0.1-0.6); Absolute Neutrophils 20.8 10^3/uL (1.4-6.5); Hematocrit 25.6 % (37.0-47.0); Hemoglobin 8.6 g/dL (12.0-16.0); Mean Corp Hgb Conc. 33.6 g/dL (33.0-37.0); Mean Corpuscular Hgb 30.5 pg (27.0-31.0); Mean Corpuscular Volume 90.8 fL (81.0-99.0); Nucleated Red Blood Cells % 4.5 %; Platelet Count 95 10^3/uL (130-400); Red Blood Cell Count 2.82 10^6/uL (4.20-5.40); Red Cell Dist. Width 22.1 % (11.5-14.5); White Blood Cell Count 28.8 10^3/uL (4.8-10.8)
[2024-06-10 16:28] LABS: Anisocytosis 2+; Hypochromasia 1+; Macrocytosis 1+; Microcytosis 1+; Normal RBC Morphology No
[2024-06-10 16:29] LABS: Poikilocytosis 2+
[2024-06-10 16:30] LABS: Polychromasia 1+
[2024-06-10 16:31] LABS: Target Cells 1+
[2024-06-10 16:32] LABS: Schistocytes 2+
[2024-06-10 16:33] LABS: Basophilic Stippling Slight
[2024-06-10 16:34] LABS: Acanthocytes 1+
--- NOTE | 2024-06-10 17:15 | W.PN.HOSP.TC ---
Today's Communication/Plan
-
weaning as per ARDSNet along with sedation vacation
monitor hgb
await HIT panel
TPN
Abx
Assessment / Plan
Assessment / Plan
Gen-sedated, intubated, supine
HEENT-NC, AT, anicteric, clear oral mm
Neck-supple
CV-reg, no M, +S1/S2, tachy; subclavian line in place
Lungs-clear B/L
Abd-soft, NT, ND
Ext-no edema
Musculoskeletal-no cyanosis, clubbing, bilateral foot drop
Skin-warm and dry
Acute hypoxic respiratory failure
-unfortunately worsening respiratory failure and now has ARDS physiology. LIkely 2/2 to aspiration pneumonitis
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
-patient refused transfer to [place] prior to intubation as per records and POA, despite initially possibly an ECMO candidate
-Prone positioning per protocol. Now supinated, PF ratio improving. No plans of proning at this time
�Continue AC/VC
� Continue ventilator settings, adjust as necessary� ARDSnet protocol for weaning as tolerated; continue sedation vacation as tolerated; Approaching tracheostomy discussions
� Status post nebulized epoprostenol, completed today
�Maintain euvolemia, slight net negative - diuretics dailty
#Septic shock
��Possibly secondary to pneumonia/ARDS
� CT imaging for persistent leukocytosis
�Vasopressors weaned off
� Continue stress dose steroids, patient was on steroids in the past - wean
� Wean steroids as tolerated
� Intermittent diuresis now with anasarca
�Continue meropenem for today
�ID consulted
-monitor cbc - possibly 2/2 to sbo
#Recurrent SBO
-unclear etiology of bowel obstruction, perhaps ischemia induced strictures.
- She does not have a confirmed diagnosis of inflammatory bowel disease.
-High risk for operative intervention per surgical service given low prealbumin level, severe malnutrition and cirrhosis.
- Prealbumin remains low despite ongoing TPN. Last prealbumin was 5.2. Discussed with Dr. Godwin. I am not sure prealbumin is reliable in the setting of her underlying cirrhosis, critical illness.
-NG tube with minimal output. Continue suction; minimal bowel sounds
�TPN
� Trend labs�tentative plan for delayed operative intervention following steroid wean improvement in her nutritional/liver disease status
Intractable pain syndrome -
-complaining of severe bilateral lower extremity pain and muscle cramps which is chronic.
-Was on IV Dilaudid every 4 hours as needed prior to intubation.
-Currently on fentanyl IV as needed.
Acute anemia
Pancytopenia
� No evidence of acute bleeding
-most likely 2/2 to sepsis antibiotics although continued downtrend along with fluid resuscitation
-HIT panel ordered
� Stop Lovenox
� IR consulted for replacement of subclavian triple-lumen cath
�Coags normal, can hold on cryoprecipitate at this time, no clinical evidence of DIC at this time
-transfuse 1 u today 1
-Maintain hgb >7
-Transfused 4 units of blood so far this admission. Last transfusion 06/10
- No obvious evidence of bleeding.
- Given positive fluid status of 4.8 L, suspect hemodilution induced anemia due to IV fluid administration. Monitor hemoglobin for now. Transfuse if below 7.
Pancolitis
-C. difficile antigen positive toxin negative recently treated with oral vancomycin.
#Transaminitis
-suspect 2/2 to TPN and /or DILI
-monitor
-Already known hep C carrier
�Abdominal ultrasound with severe diffuse hepatic steatosis, small volume ascites, no evidence of cholelithiasis or biliary obstruction
Cirrhosis secondary to untreated hepatitis C.
Hepatic encephalopathy
Recurrent ascites.
Anasarca
Severe protein/calorie malnutrition -continue TPN.
Hypovolemic hyponatremia -resolved.
Hypokalemia -improved.
Acute on chronic anemia
-
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
Polysubstance abuse, former IVDA on Suboxone.
Anxiety disorder
Multiple skin breakdowns
Chronic bilateral lower extremity weakness, bedbound status
History of IVDA
Full code
Dispo: Father who is the POA states that he does not want her transferred under any circumstances to [facility]. He understands that she could potentially deteriorate and in our hospital. In addition, he states that Miriam
also does not want to be transferred to [facility].; Family Court Counsellor explained potential deterioration including multiorgan failure to family.
Total time spent on today's encounter was 55 minutes which included time spent in counseling the patient/family regarding diagnosis and treatment plan as listed above, goals of care, and symptom management. Case was discussed with nursing staff,
specialists, and care coordinators/case management. All labs and imaging personally reviewed by me. Remainder the time spent in detailed review of previous records, lab data, imaging, and other medical provider documentation.
Anticipated Discharge: > 48 hours
Subjective/Interval History
-
Date of Service: June 10, 2024
Weaning O2
Sedation medication as tolerated
Hemoglobin under 7, transfuse
Await HIT analysis, doubt positive
Objective Data
-
Labs:
Laboratory Results
06/10/24 06/10/24
04:41 15:35
WBC 28.8 H 28.8 H
Hgb 6.8 L* 8.6 L D
Hct 21.2 L 25.6 L
Plt Count 87 L D 95 L
Sodium 142
Potassium 3.5
Chloride 113 H
Carbon Dioxide 28
BUN 54 H
Creatinine 0.4 L
Glucose 121 H
Calcium 8.0 L
Vital Signs:
Vital Signs
Temp Pulse Resp BP Pulse Ox
98.8 F 89 27 138/80 92
06/10/24 16:31 06/10/24 10:49 06/10/24 10:49 06/10/24 10:49 06/10/24 15:35
I&O
06/09/24 06/10/24 06/11/24
06:59 06:59 06:59
Intake Total 2627.4 / 2697.5 2025.8 / 2100.7 1289.0 / 1289.0
Output Total 1794 / 1944 1725 / 1725 1340 / 1340
Balance 833.4 / 753.5 300.8 / 375.7 -51.0 / -51.0
Review of Systems
-
History Source: Patient
All other systems: Not reviewed unless documented
Physical Exam
-
General: No Apparent Distress
HEENT: Normocephalic, Atraumatic and Moist Mucous Membranes
Respiratory: Clear to Auscultation
Cardiac: Regular Rhythm and S1/S2; Negative Murmur, Rub or Gallop
GI: Distended; Negative Tender or Organomegaly
Rectal: Deferred by Provider
Musculoskeletal: No Clubbing, No Cyanosis, No Edema and Other (Right arm amputation)
Skin: Negative Rash
Neuro: Awake, Alert, Oriented, AO x 3 and Nonfocal/Grossly Intact
Data Reviewed
-
Diagnostic Radiology: Report Reviewed by me
CT Scan: Report Reviewed by me
Labs: Labs Reviewed by me
[2024-06-10 17:44] LABS: Glucose - Point of Care 120 mg/dl (70-99)
[2024-06-10] MEDS: SOLU-CORTEF 25 MG IV (17:55)
--- NOTE | 2024-06-10 19:50 | PTCARENOTE ---
Cannot verify vitals prior to 1900, previous shift.
--- NOTE | 2024-06-10 20:28 | PTCARENOTE ---
Received patient intubated and sedated, mother at bedside. Patient has a weak cough when suctioned, grimaces slightly with care. PERRLA 3 mm, sluggish. B/l foot drop. Normal sinus, 80s-90s. BP 130s/70s, left femoral artemio zeroed, flushed, and
leveled. +4 generalized pitting edema. 8.0 ETT, 25 at the lip, moved to the center. Mouth care done. Vent settings 16/450/50%/8, RR 20s, PIP 30s. Lung sounds coarse with rhonchi and crackles throughout. Right nare salem sump set to LIWS at 65 cm
putting out green secretions. No bowel sounds, abdomen round, distended. Temp sensing correia in place draining fallon urine. Right arm and right big toe amputated. Dressings on b/l chest, right knee, heels, sacrum, and b/l feet CDI. TPN, fentanyl, and
propofol gtt ongoing per order. Right femoral triple lumen dressing CDI, patent. Hourly rounding and patient safety checks ongoing.
[2024-06-10] MEDS: Parenteral Nutrition, Central 1240 IV (20:57)
[2024-06-10] MEDS: REMERON 15 MG TUBE (21:05)
[2024-06-10] MEDS: MELATONIN 5 MG TUBE (21:05)
--- NOTE | 2024-06-11 | PTCARENOTE ---
Patient repositioned, mouth care done. Otherwise assessment unchanged from previous, hourly rounding and patient safety checks ongoing.
[2024-06-11 00:13] LABS: Glucose - Point of Care 142 mg/dl (70-99)
[2024-06-11] MEDS: SUBLIMAZE 100 MCG IV ×7 (02:25→21:29)
[2024-06-11 03:54] LABS: B.E. 3.6 mmol/L; HCO3 27.7 mmol/L (21-28); O2 Saturation % 94.5 % (94-98); PCO2 39 mmHg (32-35); PO2 64 mmHg (83-108); pH 7.46 (7.35-7.45)
[2024-06-11 04:01] LABS: Hematocrit 25.5 % (37.0-47.0); Hemoglobin 8.3 g/dL (12.0-16.0); Mean Corp Hgb Conc. 32.5 g/dL (33.0-37.0); Mean Corpuscular Hgb 30.4 pg (27.0-31.0); Mean Corpuscular Volume 93.4 fL (81.0-99.0); Platelet Count 105 10^3/uL (130-400); Red Blood Cell Count 2.73 10^6/uL (4.20-5.40); Red Cell Dist. Width 23.1 % (11.5-14.5); White Blood Cell Count 26.4 10^3/uL (4.8-10.8)
[2024-06-11 04:24] LABS: ALT (SGPT) 66 U/L (0-35); AST (SGOT) 76 U/L (14-36); Albumin 1.5 g/dl (3.5-5.0); Alkaline Phosphatase 197 U/L (38-126); Blood Urea Nitrogen 46 mg/dl (7-17); Calcium 7.8 mg/dl (8.4-10.2); Carbon Dioxide 29 mmol/L (22-30); Chloride 115 mmol/L (98-107); Estimated Creatinine Clearance 119 ml/min; Glucose 116 mg/dl (70-99); Potassium 3.5 mmol/L (3.5-5.1); Sodium 144 mmol/L (135-145); Total Bilirubin 1.2 mg/dl (0.2-1.3); Total Protein 5.2 g/dl (6.3-8.2); eGFR > 60.00
[2024-06-11] MEDS: MERREM 500 MG IV ×4 (05:20→21:29)
[2024-06-11] MEDS: STERILE WATER FOR INJECTION 10 ML IV ×4 (05:20→21:29)
[2024-06-11] MEDS: FIRVANQ 125 MG TUBE ×4 (05:29→23:39)
[2024-06-11] MEDS: SOLU-CORTEF 25 MG IV ×2 (05:29→17:37)
[2024-06-11] MEDS: FLAGYL 500 MG 100 IV ×3 (05:29→21:28)
[2024-06-11] MEDS: DIPRIVAN 100 IV ×3 (05:30→18:24)
[2024-06-11 05:40] VITALS: BMI 27.1
--- NOTE | 2024-06-11 05:42 | PTCARENOTE ---
CHG bath done, repositioned, mouth care done. 2 fentanyl boluses given total for vent dyssnychrony. Otherwise patient assessment unchanged from previous.
[2024-06-11] MEDS: SUBLIMAZE 100 IV ×4 (06:15→23:39)
[2024-06-11 06:46] LABS: Glucose - Point of Care 115 mg/dl (70-99)
[2024-06-11] MEDS: NOVOLOG FLEXPEN-LOW RESISTANCE SC ×3 (07:30→17:29)
--- NOTE | 2024-06-11 08:00 | PTCARENOTE ---
Assumed care of patient. Pt rec'd sedated on ventilator. Grimaces w/ oral care and suctioning. Weak gag. Pupils 3/sluggish. Does not respond to verbal stimuli. Unrestrained. Bilateral foot drop. Scleral edema. S1 S2 reg w/ NSR on monitor.
DP/PT's by doppler. +4 generalized edema. #8 ETT 22 cm ctr lip...ETT advanced to26cm per MD order and CXR completed to confirm ETT placement. Current vent settings: 16/450/+8/50%...sats 96%. Lungs diminished w/ coarse crackles and rhonchi
throughout. Suctioned orally for thick clear secretions. Right nare salem (65cm) -> LIWS. Absent bowel sounds. Temp sensing correia draining fallon urine. Correia care done. Skin pale/ashen in color. Bilateral foot dressings noted. Sacral
optifoam intact...new dressing applied....sacrum was pink blanchable...baseline skin discoloration noted. Heels elevated on pillows. Left femoral artemio....flushed and zeroed. (R) femoral TLC w/ fentanyl, propofol and TPN infusing...see
interventions. VS documented. Safe environment confirmed. Will continue to monitor.
[2024-06-11] MEDS: NSS (PRESERVATIVE FREE) 10 ML IV (08:33)
[2024-06-11] MEDS: PROTONIX IV 40 MG IV (08:34)
[2024-06-11] MEDS: REFRESH CELLUVISC GEL 1 DROPS OPHTH ×2 (08:34→19:36)
[2024-06-11] MEDS: NEURONTIN 400 MG TUBE ×3 (08:38→21:29)
[2024-06-11] MEDS: MIRALAX 17 GRAMS TUBE (08:38)
[2024-06-11] MEDS: FLEXERIL 10 MG TUBE ×3 (08:38→21:29)
--- NOTE | 2024-06-11 09:13 | W.PN.ID1 ---
Date of Service
Date of Service: June 11, 2024
Today's Communication
Continue current antibiotics for now.
Assessment / Plan
Leukocytosis
-Trending down
Fever
- appears resolved. ?drug fever from zosyn, ?ARDS
Recurrent SBO +/- ileus
-Unclear if secondary to Crohn's versus other inflammatory bowel disease.
VDRF
ARDS 2* Asp PNA
Thrombocytopenia
Increase LFT's
Profound protein calorie malnutrition (albumin = 1.5)
Anemia
Hx Cirrhosis
Hx hepatitis C (untreated)
Hx IVDA
Recommendations:
Sputum culture unrevealing; and positive only for normal starla.
Blood cultures negative. Wound culture from 05/16 appears to be a superficial culture and reflects superficial colonization only.
Given suspected inflammatory bowel issues, would avoid probiotics.
Abdominal ultrasound shows severe diffuse hepatic steatosis, but no evidence for cholelithiasis or biliary obstruction. Abdominal flatplate unrevealing.
Repeat blood cultures neg to date.
hx of C. diff colonization ( Ag(+)/toxin (-) in Apr).
Unable to send stool for C. diff due to chronic bowel obstruction
Continue empiric C. diff treatment IV metronidazole 500mg q8 and Vanco 125mg by tube q6h (d4) -> Leukocytosis trending down.
Continue meropenem (d8) for now
Follow WBC, vitals, LFTs, platelets.
Patient remains critically ill in intensive care unit on vent support.
Overall prognosis appears progressively dismal for recovery.
Dr. Finnegan Update given to mother who was at the bedside; recommended continued discussions regarding CODE STATUS and goals of care. She reported that the patient has a living will and it was suggested that she review it.
����������������������������������������������������������
Chief Complaint
-: Leukocytosis, Clinical Sepsis and Other (ARDS)
Subjective / Review of Systems
Family at bedside.
Per nurse, no BM.
Vital Signs / Physical Exam
Vital Signs
Vital Signs
Temp Pulse Resp BP Pulse Ox
99.9 F 95 20 127/74 91
06/11/24 07:24 06/11/24 06:00 06/11/24 06:00 06/10/24 13:04 06/11/24 06:00
Physical Exam
Constitutional: Acutely Ill and Chronically Ill
Oropharyngeal: Other (ET tube in place. NG tube in place.)
Cardiovascular: Regular Rate and S1/S2
Pulmonary: Coarse and Other (On vent.)
Gastrointestinal: Soft, Distended (moderate) and Other (No bowel sounds auscultated. Positive anasarca)
Genito-Urinary: Alva and Clear Urine
Extremities: Edema (Upper extremities and lower extremities bilaterally; 4+); Negative Erythema
Skin: Warm and Dry; Negative Rash
Wound: Other (Right hallux amp site with sutures intact. Area clean and dry.)
Neurological: Other (Sedated)
Lines: CVP (bilateral IJ no erythema)
Objective Data
Lab Data
Lab Results
06/11/24 03:48
06/11/24 03:48
PT 16.3 Sec (11.4-14.6) H 06/09/24 05:13
INR 1.26 06/09/24 05:13
APTT 34.6 Sec (23.4-35.0) 06/09/24 05:13
Estimated Creat Clear 119 ml/min 06/11/24 03:48
Lactic Acid 1.1 mmol/L (0.7-2.0) 06/03/24 02:03
Total Bilirubin 1.2 mg/dl (0.2-1.3) 06/11/24 03:48
AST 76 U/L (14-36) H 06/11/24 03:48
ALT 66 U/L (0-35) H 06/11/24 03:48
Alkaline Phosphatase 197 U/L (38-126) H 06/11/24 03:48
C-Reactive Protein 64.80 mg/L (0.0-10.00) H 05/11/24 04:38
Most recent labs reviewed.
Micro Results:
06/08/24 11:45 Blood Culture - Preliminary
Blood/Venous No Growth in 48 hours- Final report to follow
06/08/24 10:10 Blood Culture - Preliminary
Blood/Venous No Growth in 48 hours- Final report to follow
06/03/24 04:12 Respiratory Culture - Final
Endotracheal Usual Respiratory Starla
Gram Stain - Final
06/03/24 01:46 Influenza Types A & B (VICKEY) - Final
Nasal Swab Negative for Influenza A & B, NAAT
Negative results must be combined with clinical observations
and patient history.
Nucleic Acid Amplification test (NAAT)performed on the
[employer] platform.
05/23/24 14:01 Blood Culture - Final
Blood/Venous No Growth - Final Report
05/26/24 23:16 - Final
Feces/Stool Negative for Norovirus GI and GII.
05/16/24 11:15 Wound Culture - Final
Foot - Right Serratia marcescens
Gram Stain - Final
05/16/24 11:15 Anaerobic Culture - Final
Foot - Right NO ANAEROBES ISOLATED
05/12/24 04:38 Urine Culture - Final
Urine Escherichia coli
05/11/24 22:56 MRSA Screen - Final
Nose No Methicillin Resistant Staphylococcus aureus isolated.
Imaging:
06/04/2024 CXR (portable): Stable bilateral pleural effusions, progressed. Bilateral interstitial and airspace opacities overall slightly progressed from prior exam. Findings again likely represent multifocal pneumonia versus developing ARDS.
06/03/2024 ECHO (TTE): Normal biventricular size and systolic function without regional wall motion abnormalities. EF approximately 55 to 60%. No intracardiac mass or thrombus formation is noted. Please see full dictation for additional detail.
05/17/2024 CT abdomen/pelvis with IV contrast: Significant dilatation of small bowel loops extending into the region of the distal ileum. In the pelvis there is increased enhancement of the wall of several loops of small bowel with slight stranding
of the adjacent fat with suggestion of a transition in caliber in the right pelvis as described. Findings compatible with small bowel obstruction. No evidence of free intraperitoneal air.
[2024-06-11] MEDS: HYDROPHOR 1 APPLIC TOPICAL (09:30)
--- NOTE | 2024-06-11 09:39 | W.PN.INTV ---
Today's Communication / Plan
Recommendations
Mechanical ventilations will be adjusted
Patient does not tolerate sedation breaks due to oxygen desaturation
Follow ABG
Follow daily chest x-ray
Continue antibiotic
Nutritional support with TPN
Wait for HIT serology
If HIT positive hematology will be consulted as the patient will need anticoagulation
Follow daily CBC
Diuresis today
Assessment
-
34-year-old female with complex medical history including prolonged hospital stay in October 2023 for drug relapse, history of overdose/polysubstance abuse, prolonged mechanical ventilation, eventual right upper extremity amputation secondary to
necrotizing fasciitis/cellulitis, brought to [place] by mother, immediately admitted to [facility] for GI issues, followed by hospital stay at [facility] for GI issues, recurrent small bowel obstruction, recent hospital stay at
[facility] for 1 month in March 2024, treated for hepatic encephalopathy, small bowel obstruction, improved with NG tube decompression. Now returns with similar symptom complex admitted 05/11/2024 for recurrent small bowel obstruction,
pain syndrome, refusal of care at times (NG tube, PT/OT, medications), now transferred to ICU 06/02 for progressive hypoxia, bilateral infiltrates requiring intubation and mechanical ventilation
Acute hypoxic respiratory failure-ARDS post aspiration.
Intubated 06/03/2024
Progressive bilateral infiltrates
Suspect aspiration pneumonitis
Lung injury, early ARDS
Hypotension, possible sepsis versus hypovolemia
Leukocytosis
Hypokalemia/hypomagnesemia
Recurrent small bowel obstruction
Dilated small bowel per imaging
Possible stricture, possible inflammatory bowel disease
Endoscopy at outside hospital, no definitive diagnosis of Crohn's
Chronic steroid therapy per records
Prednisone 50 mg in the past
Liver cirrhosis, hepatitis C
Untreated
Ascites with paracentesis in the past
Hepatic encephalopathy with elevated ammonia in the past
Hypoalbuminemia, severe protein/calorie malnutrition
Chronic pain syndrome
Anemia
Required transfusion x 2, last 06/02
Right great hallux osteomyelitis
Status post amputation
Conditions present prior to admission
Prolonged hospital stay October 2023, [place]
VDRF
Right upper extremity amputation secondary to necrotizing fasciitis entheses
Required HD (pt refused to continue per Father)
Anxiety disorder/bipolar disorder
Polysubstance abuse, IV drug abuse
On Suboxone in the past
Drug use intermittently since age of 15 according to father
Multiple rehabilitation efforts in the past
Chronic lower extremity weakness, sedentary/bedbound since October 2023
Plan/recommendations
Remains critically ill.
Deeply sedated with fentanyl/propofol, vecuronium as needed
No longer requiring vasopressors.
Continue with current plan:
This morning with increased to rate, worsening oxygenation requiring up to 70% likely due to increased work of breathing, ET tube was high on chest x-ray. It was repositioned
Maintain volume-cycled ventilation -day #8
AC 16/420/8/70%
Unable to determine peak pressures due to tachypnea.
ABG 06/11/2024: 7.46/39/64-patient tachypneic
ABG 06/09/2024: 7.46/38/89 on above settings.
Repeat ABG in 30 minutes. Tidal volume decreased to 400.
-
Chest x-ray 06/05/2024: Rotated to the left. Endotracheal tube in place. Slightly improved bilateral infiltrates. No pneumothorax.
Chest x-ray 06/08/2024: Persistent bilateral pulmonary infiltrates, slightly better on the right.
Chest x-ray 06/10/2024, stable bilateral infiltrates. ET tube 7 cm above the jason, no pneumothorax
ET tube advanced 4 cm
Chest x-ray chest x-ray 06/11/2019 25-8 50 5 AM: Ongoing bilateral infiltrates. Bilateral pleural effusions. ET tube now in adequate position
-
Maintain sedation, propofol/fentanyl, vecuronium as needed-with sedation breaks, tachypneic and developed hypoxemia.
Can use versus as needed to optimize ventilator synchrony.
Will continue to attempt sedation breaks per protocol.
-
Status post nebulized epoprostenol started 06/04, wean overnight 06/05 per protocol-discontinued 06/06/2024. Tolerated.
Rotational bed
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
-
As pulmonary mechanics are improving with decrease sedation and evaluate readiness for spontaneous breathing trial. Not ready at this point 06/10/2024.
-
Improved hemodynamics.
Not requiring vasopressors.
No further IV fluids
Continue IV hydrocortisone, decreased to every 12 hours 06/08/2024. Will continue to decrease in the next 48 hours to off.
-
Echocardiogram with normal biventricular function, PA pressure 31
Responded well to Lasix. Will reevaluate on a daily basis.
Additional Lasix today 20 mg IV 06/11/2024.
-
Leukocytosis improved: Multiple sources possible including intra-abdominal. Not moving bowels.
Afebrile.
Not requiring vasopressors.
Abdominal film 06/08/2024: Nonspecific bowel pattern. No subdiaphragmatic air
Ultrasound of the abdomen 06/08/2024: Severe diffuse hepatic steatosis. Small volume ascites. No sonographic evidence of cholelithiasis or obstruction
-
Continue with antibiotics for now, presently on meropenem-defer to infectious disease- continue IV metronidazole and oral vancomycin.
IV meropenem..
Afebrile
Patient has multiple potential sources of infection.
Blood cultures 06/08/2024-so far negative
Respiratory culture with usual respiratory starla
Negative influenza
Subclavian triple-lumen catheter discontinued 06-09-2023
Femoral line obtained with interventional radiology
Unfortunately there is no other IV access points
Unable to place PICC line patient has stenotic major veins. Likely due to her history of IVDA.
Femoral arterial line in place
-
Thrombocytopenia: Multiple etiologies including drug-induced, HIT, advanced liver disease.
Decreased fibrinogen and D-dimer increased could be seen in patient with liver disease.
PTT and INR are normal.
No evidence for bleeding diathesis
Hold Lovenox for now, HIT panel was sent 06/08/2024-pending.
Daily CBCs
Monitor for bleeding
If HIT positive I will consult hematology.
-
CT chest abdomen pelvis without acute abnormalities. Continues to have significant bilateral infiltrates, pleural effusions. No acute collections intra-abdominal.
CT head no acute abnormalities. Mild sinusitis
Upper and lower extremity Dopplers without acute DVT
Platelet count today slightly improved.
HIT analysis pending
Continue to hold Lovenox for today
If platelet count improved from HIT negative will restart. Suspicion for HIT opinion is not very high but possible
-
Anemia: Patient received 2 units of PRBC since hospital stay, last being 06/02
Multifactorial. Ongoing. Blood loss, chronic disease.
Status post additional unit of packed red blood cells given to due to hemoglobin less than 7 -06/10/2024
Good response, hemoglobin now 8.3.
No evidence for bleeding.
Will continue to minimize transfusion given underlying acute lung injury.
-
Follow urine output-renal function is normal.
Alva catheter in place
Patient with history of dialysis for prolonged period in October 2023 while in [place].
-
Continues with TPN. Has required TPN throughout hospital stay. Unfortunate patient with protein calorie malnutrition
Hypoalbuminemia noted-patient is in anasarca.
NG tube in place, maintain to suction especially when prone
Dilated small bowel loops based on prior studies
Surgery continues to follow
Medications per NG tube if okay with surgery
DVT prophylaxis: Hold Lovenox today 06-09-2024-HIT pending
GI prophylaxis: Remains on pantoprazole
Dr. Haines Updated mother and father at bedside at length 06/06/2024, 06/07/2024, 06/08/2024-06/09/2024, 06/10/2024, 06/11/2024. All questions answered.
Discussed possibility of tracheotomy, we also discussed possibility of DNR.
Prognosis continues to be very poor.
-
See prior update note for transfer to tertiary care center. No clear pathway for transfer to [facility]
Family aware
Prior discussion:
Father admits that patient has been difficult, refusing therapy multiple times. She listens to him when he tells her to do it but when he leaves the room, she reverts to refusing care and therapy
He also is asking 'why are we giving her pain medicines? She is an addict?' I reviewed with father that when patient is screaming in excruciating pain, we cannot ignore this. We have to find a happy medium between controlling pain and avoiding
oversedation. This will be difficult given her drug abuse/polysubstance abuse history. Father states she has been using drugs probably since age of 15
Father also admits that patient has refused medications in the past, refuses placement of NG tube, refused nutrition when offered. Father also upset that daughter is not getting nutrition. However upon reviewing records, with every attempt to
advance diet, patient developed significant abdominal pain.
I also reviewed with father and stepmother worst-case scenario where patient progresses to multisystem organ failure, developed complication of prolonged hospital stay, prolonged mechanical ventilation such as thromboembolic disease, recurrent
infections, bleeding, cardiac complications, renal complications. He did not want to hear this but I proceeded with stepmother as father stepped away. I told the stepmother that it is important for him to be hopeful of outcome but to be aware of
potential complications.
Father confirmed full CODE STATUS
Will request records from [facility]
The above was reviewed at length with critical care nursing, respiratory care, primary service, infectious disease, surgery.
Critical care statement: A total of 41 minutes of critical care time was provided for this patient today. This includes management of unstable vital signs, evaluation of the patient at bedside, reviewing the patient's pertinent medical records
including ventilator settings, arterial blood gases, radiographs, microbiology, laboratory evaluations and discussion with primary team, critical care nursing, and respiratory therapy.
Subjective Dataa
Subjective Data
Date of Service:
Date of Service: June 11, 2024
Chief Complaint: Department Director Follow Up (ARDS) and Vent Management Follow Up
Subjective:
Sedated, critically ill on mechanical ventilation
Review of Systems
General: Unobtainable - Sedation
Objective Data
Data Reviewed
Vital Signs / I&O / Oxygen:
Vital Signs
Temp Pulse Resp BP Pulse Ox
99.9 F 95 20 127/74 91
06/11/24 07:24 06/11/24 06:00 06/11/24 06:00 06/10/24 13:04 06/11/24 06:00
Intake and Output
06/10/24 06/11/24 06/12/24
06:59 06:59 06:59
Intake Total 2025.8 / 2099.7 2797.6 / 2797.6
Output Total 1725 / 1725 2004 / 2004
Balance 300.8 / 375.7 792.6 / 792.6
SaO2 [A/C] 93
SaO2 91
Nasal Cannula flow liters per 60
minute
Physical Exam
General: Comfortable and Other (Left subclavian central line, lying supine)
HEENT: Normocephalic
Cardiovascular: S1-S2, Regular Rhythm (Tachycardic), Murmur (n), Rub (n), Peripheral Edema (n) and Other (Right upper extremity amputation, toe dressing)
Respiratory: Wheeze (n), Crackles (few posteriorly), Rhonchi (few), Non-Labored Respirations, Stridor (n) and ET Tube
GI: NG Tube and Other (Absent bowel sounds)
Neurology: Unresponsive (Sedated) and Other (Has respiratory effort)
Skin: Cyanosis (n), Jaundice (n) and Rash (n)
Labs/Micro/Reports
Lab Data
06/11/24 03:48
06/11/24 03:48
Laboratory Results
06/11/24
03:48
pH 7.46 H
pCO2 39 H
pO2 64 L
HCO3 27.7
O2 Delivery Level
Microbiology
06/08/24 11:45 Blood/Venous Blood Culture - Preliminary
No Growth in 48 hours- Final report to follow
06/08/24 10:10 Blood/Venous Blood Culture - Preliminary
No Growth in 48 hours- Final report to follow
[2024-06-11] MEDS: LASIX 20 MG IV (10:21)
--- NOTE | 2024-06-11 11:35 | W.PN.UPDATE ---
Update Note
Progress Note Update
Family updated-we have decided to institute DNR.
Apparently patient has a living will, would not want tracheostomy or feeding tubes. Father and mother who are at the bedside will not pursue tracheotomy at this point.
If there is no signs of improvement in the next 48 hours then they will consider withdrawal of care.
[2024-06-11 11:47] LABS: Glucose - Point of Care 146 mg/dl (70-99)
--- NOTE | 2024-06-11 12:00 | PTCARENOTE ---
Pt made a DNR after MD and parent discussion. Bracelet applied. No major changes in physical assessment. ETT moved to right lip. Current vent settings: 16/400/+8/60%...sats 95%. Pt's mom at bedside. Will continue to monitor.
--- NOTE | 2024-06-11 12:19 | W.PN.SURGUPD ---
Surgical Update
Surgical Update
Patient remains critically ill:
Now DNR status, family considering comfort measures if no improvement in the next 48h.
Surgery following for recurrent obstructive symptoms secondary to stricture of unclear etiology: Crohn's vs ischemic
Continue NGT to suction, no enteral feedings
PPI for GI ppx
TPN renewed. Lipids decreased in TPN as per child abuse worker/pharmacy recs given ongoing use of propofol
Continue to trend labs
--- NOTE | 2024-06-11 15:42 | W.PN.HOSP.TC ---
Today's Communication/Plan
-
Lasix
Appreciate network systems engineer conversation with family, anticipate palliative extubation on Thursday if no improvement
Assessment / Plan
Assessment / Plan
Gen-sedated, intubated, supine
HEENT-NC, AT, anicteric, clear oral mm
Neck-supple
CV-reg, no M, +S1/S2, tachy; subclavian line in place
Lungs-clear B/L
Abd-soft, NT, ND
Ext-no edema
Musculoskeletal-no cyanosis, clubbing, bilateral foot drop
Skin-warm and dry
Acute hypoxic respiratory failure
-unfortunately worsening respiratory failure and now has ARDS physiology. LIkely 2/2 to aspiration pneumonitis
-Intubated operations chief 06/03 for respiratory failure.
-patient refused transfer to [facility] prior to intubation as per records and POA, despite initially possibly an ECMO candidate
-Prone positioning per protocol. Now supinated, PF ratio improving. No plans of proning at this time
�Continue AC/VC
� Continue ventilator settings, adjust as necessary� ARDSnet protocol for weaning as tolerated; continue sedation vacation as tolerated; Approaching tracheostomy discussions
� Status post nebulized epoprostenol, completed today
�Maintain euvolemia, slight net negative - diuretics dailty
#Septic shock
��Possibly secondary to pneumonia/ARDS
� CT imaging for persistent leukocytosis
�Vasopressors weaned off
� Continue stress dose steroids, patient was on steroids in the past - wean
� Wean steroids as tolerated
� Intermittent diuresis now with anasarca
�Continue meropenem for today
�ID consulted
-monitor cbc - possibly 2/2 to sbo
#Recurrent SBO
-unclear etiology of bowel obstruction, perhaps ischemia induced strictures.
- She does not have a confirmed diagnosis of inflammatory bowel disease.
-High risk for operative intervention per surgical service given low prealbumin level, severe malnutrition and cirrhosis.
- Prealbumin remains low despite ongoing TPN. Last prealbumin was 5.2. Discussed with Dr. Godwin. I am not sure prealbumin is reliable in the setting of her underlying cirrhosis, critical illness.
-NG tube with minimal output. Continue suction; minimal bowel sounds
�TPN
� Trend labs�tentative plan for delayed operative intervention following steroid wean improvement in her nutritional/liver disease status
Intractable pain syndrome -
-complaining of severe bilateral lower extremity pain and muscle cramps which is chronic.
-Was on IV Dilaudid every 4 hours as needed prior to intubation.
-Currently on fentanyl IV as needed.
Acute anemia
Pancytopenia
� No evidence of acute bleeding
-most likely 2/2 to sepsis antibiotics although continued downtrend along with fluid resuscitation
-HIT panel ordered
� Stop Lovenox
� IR consulted for replacement of subclavian triple-lumen cath
�Coags normal, can hold on cryoprecipitate at this time, no clinical evidence of DIC at this time
-transfuse 1 u today 1/
-Maintain hgb >7
-Transfused 4 units of blood so far this admission. Last transfusion 06/10
- No obvious evidence of bleeding.
- Given positive fluid status of 4.8 L, suspect hemodilution induced anemia due to IV fluid administration. Monitor hemoglobin for now. Transfuse if below 7.
Pancolitis
-C. difficile antigen positive toxin negative recently treated with oral vancomycin.
#Transaminitis
-suspect 2/2 to TPN and /or DILI
-monitor
-Already known hep C carrier
�Abdominal ultrasound with severe diffuse hepatic steatosis, small volume ascites, no evidence of cholelithiasis or biliary obstruction
Cirrhosis secondary to untreated hepatitis C.
Hepatic encephalopathy
Recurrent ascites.
Anasarca
Severe protein/calorie malnutrition -continue TPN.
Hypovolemic hyponatremia -resolved.
Hypokalemia -improved.
Acute on chronic anemia
-
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
Polysubstance abuse, former IVDA on Suboxone.
Anxiety disorder
Multiple skin breakdowns
Chronic bilateral lower extremity weakness, bedbound status
History of IVDA
Full code
Dispo: Planning for palliative extubation on Thursday
Anticipated Discharge: > 48 hours
Subjective/Interval History
-
Date of Service: June 11, 2024
Tour Bus Driver/Guide had in-depth conversation with family, planning for palliative extubation on Thursday
Objective Data
-
Labs:
Laboratory Results
06/11/24
03:48
WBC 26.4 H
Hgb 8.3 L
Hct 25.5 L
Plt Count 105 L
HCO3 27.7
Sodium 144
Potassium 3.5
Chloride 115 H
Carbon Dioxide 29
BUN 46 H
Creatinine 0.3 L
Glucose 116 H
Calcium 7.8 L
Total Bilirubin 1.2
AST 76 H
ALT 66 H
Alkaline Phosphatase 197 H
Vital Signs:
Vital Signs
Temp Pulse Resp BP Pulse Ox
99.9 F 93 0 124/66 93
06/11/24 15:00 06/11/24 12:00 06/11/24 12:00 06/11/24 10:21 06/11/24 15:34
I&O
06/10/24 06/11/24 06/12/24
06:59 06:59 06:59
Intake Total 2025.8 / 2100.7 2797.6 / 2877.5 609.3 / 609.3
Output Total 1725 / 1725 2004 950 / 950
Balance 300.8 / 375.7 792.6 / 772.5 -340.7 / -340.7
Review of Systems
-
History Source: Patient
All other systems: Not reviewed unless documented
Data Reviewed
-
Diagnostic Radiology: Report Reviewed by me
CT Scan: Report Reviewed by me
Labs: Labs Reviewed by me
--- NOTE | 2024-06-11 16:00 | PTCARENOTE ---
No major changes in physical assessment. Remains intubated and sedated on ventilator. Family at bedside. Will continue to monitor.
[2024-06-11 17:40] LABS: Glucose - Point of Care 110 mg/dl (70-99)
[2024-06-11] MEDS: TYLENOL ORAL SOLUTION 650 MG TUBE (19:52)
--- NOTE | 2024-06-11 20:15 | PTCARENOTE ---
Received patient intubated and sedated. Grimacing to tactile stimulation and with care, b/l foot drop. Normal sinus/sinus tach, 90s-100s. BP stable, normothermic. Doppler PT/DP pulses b/l. +4 generalized anasarca. 8.0 ETT, 26 at the lip. Vent
settings 16/400/60%/8. Lung sounds coarse with rhonchi throughout, saturating 95%. Thick, clear oral and inline secretions. Mouth care done, repositioned. Abdomen round, absent bowel sounds, no BM. Alva in place draining yellow urine. Dressings on
b/l feet and sacrum CDI. Repositioned. Right femoral TLC patent, WNL. Fentanyl, propofol, and TPN gtt ongoing per order. Left femoral artemio zeroed, flushed, and leveled. Mom remains at bedside, hourly rounding and patient safety checks ongoing.
[2024-06-11] MEDS: Parenteral Nutrition, Central 1240 IV (20:28)
[2024-06-11] MEDS: REMERON 15 MG TUBE (21:29)
[2024-06-11] MEDS: MELATONIN 5 MG TUBE (21:29)
--- NOTE | 2024-06-11 23:54 | PTCARENOTE ---
Patient was agitated around 2200, bucking the vent, opening eyes and shaking head but not following commands. Fentanyl bolus given and drip increased. Otherwise patient assessment unchanged from previous, mouth care and correia care done.
Repositioned, mom at bedside, hourly rounding and patient safety checks ongoing.
[2024-06-11 23:56] LABS: Glucose - Point of Care 117 mg/dl (70-99)
[2024-06-12] MEDS: DIPRIVAN 100 IV ×4 (03:13→23:29)
[2024-06-12] MEDS: STERILE WATER FOR INJECTION 10 ML IV ×4 (03:14→22:28)
[2024-06-12] MEDS: MERREM 500 MG IV ×4 (03:14→22:28)
[2024-06-12 03:20] LABS: B.E. 4.1 mmol/L; HCO3 28.5 mmol/L (21-28); O2 Saturation % 98.2 % (94-98); PCO2 41 mmHg (32-35); PO2 110 mmHg (83-108); pH 7.45 (7.35-7.45)
[2024-06-12 03:54] LABS: Blood Urea Nitrogen 39 mg/dl (7-17); Calcium 7.5 mg/dl (8.4-10.2); Carbon Dioxide 29 mmol/L (22-30); Chloride 115 mmol/L (98-107); Estimated Creatinine Clearance 119 ml/min; Glucose 118 mg/dl (70-99); Magnesium 1.9 mg/dl (1.6-2.3); Potassium 3.2 mmol/L (3.5-5.1); Sodium 144 mmol/L (135-145); Triglycerides 107 mg/dl (10-149); eGFR > 60.00
--- NOTE | 2024-06-12 04:24 | PTCARENOTE ---
CHG bath done, labs sent, repositioned, mouth care done. Otherwise assessment unchanged from previous. Hourly rounding and patient safety checks ongoing.
[2024-06-12 04:25] VITALS: BMI 27.4
[2024-06-12] MEDS: SUBLIMAZE 100 IV ×4 (04:29→20:07)
[2024-06-12] MEDS: KCL 100 IV ×2 (04:31→16:14)
[2024-06-12] MEDS: CALCIUM GLUCONATE 100 IV (04:32)
[2024-06-12] MEDS: FLAGYL 500 MG 100 IV ×3 (05:55→22:30)
[2024-06-12] MEDS: FIRVANQ 125 MG TUBE ×4 (05:56→23:29)
[2024-06-12] MEDS: SOLU-CORTEF 25 MG IV ×2 (05:56→17:33)
[2024-06-12] MEDS: SUBLIMAZE 100 MCG IV ×4 (06:03→20:59)
[2024-06-12 06:19] LABS: Glucose - Point of Care 108 mg/dl (70-99)
[2024-06-12] MEDS: NOVOLOG FLEXPEN-LOW RESISTANCE SC ×3 (07:18→17:31)
[2024-06-12] MEDS: NSS (PRESERVATIVE FREE) 10 ML IV (07:39)
[2024-06-12] MEDS: PROTONIX IV 40 MG IV (07:39)
[2024-06-12] MEDS: HYDROPHOR 1 APPLIC TOPICAL (07:40)
[2024-06-12] MEDS: NEURONTIN 400 MG TUBE ×3 (07:40→22:28)
[2024-06-12] MEDS: FLEXERIL 10 MG TUBE ×3 (07:40→22:28)
[2024-06-12] MEDS: REFRESH CELLUVISC GEL 1 DROPS OPHTH ×2 (07:40→20:07)
[2024-06-12] MEDS: MIRALAX 17 GRAMS TUBE (07:40)
--- NOTE | 2024-06-12 09:57 | W.PN.ID1 ---
Date of Service
Date of Service: June 12, 2024
Today's Communication
Continue current abx's pending goals of care decision.
Assessment / Plan
Leukocytosis
-Trending down
Fever
- recurred x 1 evening of 06/11/24
Recurrent SBO +/- ileus
-Unclear if secondary to Crohn's versus other inflammatory bowel disease.
VDRF
ARDS 2* Asp PNA
Thrombocytopenia
Increase LFT's
Profound protein calorie malnutrition (albumin = 1.5)
Anemia
Hx Cirrhosis
Hx hepatitis C (untreated)
Hx IVDA
Recommendations:
Sputum culture unrevealing; and positive only for normal starla.
Blood cultures negative. Wound culture from 05/16 appears to be a superficial culture and reflects superficial colonization only.
Given suspected inflammatory bowel issues, would avoid probiotics.
Abdominal ultrasound shows severe diffuse hepatic steatosis, but no evidence for cholelithiasis or biliary obstruction. Abdominal flatplate unrevealing.
Repeat blood cultures neg to date.
hx of C. diff colonization ( Ag(+)/toxin (-) in Apr).
Unable to send stool for C. diff due to chronic bowel obstruction
Continue empiric C. diff treatment IV metronidazole 500mg q8 and Vanco 125mg by tube q6h (d5) -> Leukocytosis trending down.
Fever x 1 last night. Monitor for now.
Continue meropenem (d9) for now
Follow WBC, vitals, LFTs, platelets.
Patient remains critically ill in intensive care unit on vent support.
Overall prognosis appears progressively dismal for recovery.
Family contemplating comfort measures if no improvement next 48hrs , as per patient's wishes/living will.
����������������������������������������������������������
Chief Complaint
-: Leukocytosis, Clinical Sepsis and Other (ARDS)
Subjective / Review of Systems
Critically ill on vent.
Vital Signs / Physical Exam
Vital Signs
Vital Signs
Temp Pulse Resp BP Pulse Ox
99.2 F 103 18 124/66 91
06/12/24 07:23 06/12/24 06:00 06/12/24 06:00 06/11/24 10:21 06/12/24 08:04
Selected Entries
06/11/24
20:05
Temp 100.6 F H
Physical Exam
Constitutional: Acutely Ill and Chronically Ill
Oropharyngeal: Other (ET tube in place. NG tube in place.)
Cardiovascular: S1/S2 and Other (tachycardic)
Pulmonary: Coarse and Other (On vent.)
Gastrointestinal: Soft, Distended (moderate) and Other (No bowel sounds auscultated. Positive anasarca)
Genito-Urinary: Alva and Clear Urine
Extremities: Edema (Upper extremities and lower extremities bilaterally; 4+); Negative Erythema
Objective Data
Lab Data
Lab Results
06/11/24 03:48
06/12/24 03:11
PT 16.3 Sec (11.4-14.6) H 06/09/24 05:13
INR 1.26 06/09/24 05:13
APTT 34.6 Sec (23.4-35.0) 06/09/24 05:13
Estimated Creat Clear 119 ml/min 06/12/24 03:11
Lactic Acid 1.1 mmol/L (0.7-2.0) 06/03/24 02:03
Total Bilirubin 1.2 mg/dl (0.2-1.3) 06/11/24 03:48
AST 76 U/L (14-36) H 06/11/24 03:48
ALT 66 U/L (0-35) H 06/11/24 03:48
Alkaline Phosphatase 197 U/L (38-126) H 06/11/24 03:48
C-Reactive Protein 64.80 mg/L (0.0-10.00) H 05/11/24 04:38
Most recent labs reviewed.
Micro Results:
06/08/24 11:45 Blood Culture - Preliminary
Blood/Venous No Growth in 72 hours- Final report to follow
06/08/24 10:10 Blood Culture - Preliminary
Blood/Venous No Growth in 72 hours- Final report to follow
06/03/24 04:12 Respiratory Culture - Final
Endotracheal Usual Respiratory Starla
Gram Stain - Final
06/03/24 01:46 Influenza Types A & B (VICKEY) - Final
Nasal Swab Negative for Influenza A & B, NAAT
Negative results must be combined with clinical observations
and patient history.
Nucleic Acid Amplification test (NAAT)performed on the
[employer] platform.
05/23/24 14:01 Blood Culture - Final
Blood/Venous No Growth - Final Report
05/26/24 23:16 - Final
Feces/Stool Negative for Norovirus GI and GII.
05/16/24 11:15 Wound Culture - Final
Foot - Right Serratia marcescens
Gram Stain - Final
05/16/24 11:15 Anaerobic Culture - Final
Foot - Right NO ANAEROBES ISOLATED
05/12/24 04:38 Urine Culture - Final
Urine Escherichia coli
05/11/24 22:56 MRSA Screen - Final
Nose No Methicillin Resistant Staphylococcus aureus isolated.
Imaging:
06/04/2024 CXR (portable): Stable bilateral pleural effusions, progressed. Bilateral interstitial and airspace opacities overall slightly progressed from prior exam. Findings again likely represent multifocal pneumonia versus developing ARDS.
06/03/2024 ECHO (TTE): Normal biventricular size and systolic function without regional wall motion abnormalities. EF approximately 55 to 60%. No intracardiac mass or thrombus formation is noted. Please see full dictation for additional detail.
05/17/2024 CT abdomen/pelvis with IV contrast: Significant dilatation of small bowel loops extending into the region of the distal ileum. In the pelvis there is increased enhancement of the wall of several loops of small bowel with slight stranding
of the adjacent fat with suggestion of a transition in caliber in the right pelvis as described. Findings compatible with small bowel obstruction. No evidence of free intraperitoneal air.
--- NOTE | 2024-06-12 10:30 | W.PN.INTV ---
Today's Communication / Plan
Recommendations
Continue mechanical ventilation without change
Daily ABG
Repeat chest x-ray tomorrow
Start IV diuresis 20 mg twice a day with close monitoring of renal function and electrolytes
Continue antibiotics per infectious disease
Follow daily CBC
restart Lovenox-HIT negative
Nutritional support via TPN
Assessment
-
34-year-old female with complex medical history including prolonged hospital stay in October 2023 for drug relapse, history of overdose/polysubstance abuse, prolonged mechanical ventilation, eventual right upper extremity amputation secondary to
necrotizing fasciitis/cellulitis, brought to [place] by mother, immediately admitted to [facility] for GI issues, followed by hospital stay at [facility] for GI issues, recurrent small bowel obstruction, recent hospital stay at
[facility] for 1 month in March 2024, treated for hepatic encephalopathy, small bowel obstruction, improved with NG tube decompression. Now returns with similar symptom complex admitted 05/11/2024 for recurrent small bowel obstruction,
pain syndrome, refusal of care at times (NG tube, PT/OT, medications), now transferred to ICU 06/02 for progressive hypoxia, bilateral infiltrates requiring intubation and mechanical ventilation
Acute hypoxic respiratory failure-ARDS post aspiration.
Intubated 06/03/2024
Progressive bilateral infiltrates
Suspect aspiration pneumonitis
Lung injury, early ARDS
Hypotension, possible sepsis versus hypovolemia
Leukocytosis
Hypokalemia/hypomagnesemia
Recurrent small bowel obstruction
Dilated small bowel per imaging
Possible stricture, possible inflammatory bowel disease
Endoscopy at outside hospital, no definitive diagnosis of Crohn's
Chronic steroid therapy per records
Prednisone 50 mg in the past
Liver cirrhosis, hepatitis C
Untreated
Ascites with paracentesis in the past
Hepatic encephalopathy with elevated ammonia in the past
Hypoalbuminemia, severe protein/calorie malnutrition
Chronic pain syndrome
Anemia
Required transfusion x 2, last 06/02
Right great hallux osteomyelitis
Status post amputation
Conditions present prior to admission
Prolonged hospital stay October 2023, [place]
VDRF
Right upper extremity amputation secondary to necrotizing fasciitis entheses
Required HD (pt refused to continue per Father)
Anxiety disorder/bipolar disorder
Polysubstance abuse, IV drug abuse
On Suboxone in the past
Drug use intermittently since age of 15 according to father
Multiple rehabilitation efforts in the past
Chronic lower extremity weakness, sedentary/bedbound since October 2023
Plan/recommendations
Remains critically ill.
Deeply sedated with fentanyl/propofol, vecuronium as needed
No longer requiring vasopressors.
Has not been able to wean from mechanical ventilation due to oxygen desaturation increased work of breathing.
Suspect significant critical illness polyneuropathy as well on top of resolving ARDS.
-
Continue with current plan:
Maintain volume-cycled ventilation -day #9
AC 16/400/8/55%
Peak pressures around 30, it increases when patient has increased respiratory effort.
Will continue to monitor pulmonary mechanics and attempt to maintain a plateau pressure under 30.
-
ABG 06/12/2024: 7.45/41/110
ABG 06/11/2024: 7.46/39/64-patient tachypneic
ABG 06/09/2024: 7.46/38/89 on above settings.
-
Chest x-ray 06/10/2024, stable bilateral infiltrates. ET tube 7 cm above the jason, no pneumothorax-ET tube repositioned.
Chest x-ray chest x-ray 06/11/2019 25-8 50 5 AM: Ongoing bilateral infiltrates. Bilateral pleural effusions. ET tube now in adequate position
-
Maintain sedation, propofol/fentanyl, vecuronium as needed-with sedation breaks, tachypneic and developed hypoxemia.
Has not received paralytics in days
Currently overbreathing the ventilator
Can use versus as needed to optimize ventilator synchrony.
Will continue to attempt sedation breaks per protocol.
During sedation breaks patient becomes tachypneic, not following commands
-
Status post nebulized epoprostenol started 06/04, wean overnight 06/05 per protocol-discontinued 06/06/2024. Tolerated.
Rotational bed
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
-
As pulmonary mechanics are improving with decrease sedation and evaluate readiness for spontaneous breathing trial. Not ready at this point 06/12/2024.
Suspect will not be able to wean due to profound muscle weakness/anasarca-likely critical illness polyneuropathy
-
Has remained hemodynamically stable for days.
Not requiring vasopressors.
Will attempt to maintain negative fluid balance
Continue IV hydrocortisone, decreased to every 12 hours 06/08/2024. Discontinue on 06/13/2024 if patient remains stable hemodynamically.
-
Echocardiogram with normal biventricular function, PA pressure 31
Responded well to Lasix.
Additional Lasix today 20 mg IV 06/11/2024.
Will start twice a day IV Lasix 20 mg 06/12/2024, hopefully will tolerate and can achieve negative fluid balance going forward.
Repeat BMP 1200 to assure potassium is corrected before giving Lasix.
-
Leukocytosis improved: Multiple sources possible including intra-abdominal. Not moving bowels.
Afebrile.
Not requiring vasopressors.
Abdominal film 06/08/2024: Nonspecific bowel pattern. No subdiaphragmatic air
Ultrasound of the abdomen 06/08/2024: Severe diffuse hepatic steatosis. Small volume ascites. No sonographic evidence of cholelithiasis or obstruction
-
Continue with antibiotics for now, presently on meropenem-defer to infectious disease- continue IV metronidazole and oral vancomycin.
IV meropenem..
Afebrile
Patient has multiple potential sources of infection.
Blood cultures 06/08/2024-so far negative
Respiratory culture with usual respiratory starla.
Negative influenza
Subclavian triple-lumen catheter discontinued 06-09-2023
Femoral line obtained with interventional radiology
Unfortunately there is no other IV access points
Unable to place PICC line patient has stenotic major veins. Likely due to her history of IVDA.
Femoral arterial line in place
-
Thrombocytopenia: Multiple etiologies including drug-induced, HIT, advanced liver disease.
Decreased fibrinogen and D-dimer increased could be seen in patient with liver disease.
PTT and INR are normal.
Platelets are recovering up to 105 K on 06/11/2024
No evidence for bleeding diathesis
Repeat CBC today-pending
Monitor for bleeding
HIT analysis :0.287 (normal less than 0.4) okay to restart heparin
-
CT chest abdomen pelvis without acute abnormalities. Continues to have significant bilateral infiltrates, pleural effusions. No acute collections intra-abdominal.
CT head no acute abnormalities. Mild sinusitis
Upper and lower extremity Dopplers without acute DVT
-
Anemia: Patient received 2 units of PRBC since hospital stay, last being 06/02
Multifactorial. Ongoing. Blood loss, chronic disease.
Status post additional unit of packed red blood cells given to due to hemoglobin less than 7 -06/10/2024
Good response, hemoglobin now 8.3.
No evidence for bleeding.
Will continue to minimize transfusion given underlying acute lung injury.
-
Follow urine output-renal function is normal.
Alva catheter in place
Patient with history of dialysis for prolonged period in October 2023 while in [place].
-
Continues with TPN. Has required TPN throughout hospital stay. Unfortunate patient with protein calorie malnutrition
Hypoalbuminemia noted-patient is in anasarca.
NG tube in place, maintain to suction especially when prone
Dilated small bowel loops based on prior studies
Surgery continues to follow
Medications per NG tube if okay with surgery
DVT prophylaxis: Restart Lovenox prophylaxis. HIT panel negative
GI prophylaxis: Remains on pantoprazole
-
Dr. Haines Updated mother and father at bedside at length 06/06/2024, 06/07/2024, 06/08/2024-06/09/2024, 06/10/2024, 06/11/2024. All questions answered.
Prognosis continues to be very poor.
Dr. Haines updated mother and father at the bedside 06/12/2024. Now patient is DNR.
We discussed tracheotomy: It appears that under living will patient did not want to prolong mechanical ventilation, tracheotomy or artificial feedings. They will contemplate comfort measures if there is no ongoing improvement in the next 3 days or
so.
-
See prior update note for transfer to tertiary care center. No clear pathway for transfer to [facility]
Family aware
Prior discussion:
Father admits that patient has been difficult, refusing therapy multiple times. She listens to him when he tells her to do it but when he leaves the room, she reverts to refusing care and therapy
He also is asking 'why are we giving her pain medicines? She is an addict?' I reviewed with father that when patient is screaming in excruciating pain, we cannot ignore this. We have to find a happy medium between controlling pain and avoiding
oversedation. This will be difficult given her drug abuse/polysubstance abuse history. Father states she has been using drugs probably since age of 15
Father also admits that patient has refused medications in the past, refuses placement of NG tube, refused nutrition when offered. Father also upset that daughter is not getting nutrition. However upon reviewing records, with every attempt to
advance diet, patient developed significant abdominal pain.
I also reviewed with father and stepmother worst-case scenario where patient progresses to multisystem organ failure, developed complication of prolonged hospital stay, prolonged mechanical ventilation such as thromboembolic disease, recurrent
infections, bleeding, cardiac complications, renal complications. He did not want to hear this but I proceeded with stepmother as father stepped away. I told the stepmother that it is important for him to be hopeful of outcome but to be aware of
potential complications.
Father confirmed full CODE STATUS
Will request records from [facility]
The above was reviewed at length with critical care nursing, respiratory care, primary service, infectious disease, surgery.
Critical care statement: A total of 50 minutes of critical care time was provided for this patient today. This includes management of unstable vital signs, evaluation of the patient at bedside, reviewing the patient's pertinent medical records
including ventilator settings, arterial blood gases, radiographs, microbiology, laboratory evaluations and discussion with primary team, critical care nursing, and respiratory therapy.
Subjective Dataa
Subjective Data
Date of Service:
Date of Service: June 12, 2024
Chief Complaint: Carton Counter Feeder Follow Up (ARDS) and Vent Management Follow Up
Subjective:
Sedated, on mechanical ventilation
Critically ill
Review of Systems
General: Unobtainable - Sedation
Objective Data
Data Reviewed
Vital Signs / I&O / Oxygen:
Vital Signs
Temp Pulse Resp BP Pulse Ox
99.2 F 103 18 124/66 91
06/12/24 07:23 06/12/24 06:00 06/12/24 06:00 06/11/24 10:21 06/12/24 08:04
Intake and Output
06/11/24 06/12/24 06/13/24
06:59 06:59 06:59
Intake Total 2797.6 / 2877.5 2500.1 / 2500.1
Output Total 2004 1685 / 1685
Balance 792.6 / 772.5 815.1 / 815.1
SaO2 [A/C] 90
SaO2 91
Nasal Cannula flow liters per 60
minute
Physical Exam
General: Comfortable and Other (Anasarca)
HEENT: Normocephalic
Cardiovascular: S1-S2, Regular Rhythm (Tachycardic), Murmur (n), Rub (n), Peripheral Edema (n) and Other (Right upper extremity amputation, toe dressing)
Respiratory: Wheeze (n), Crackles (few posteriorly), Rhonchi (few), Non-Labored Respirations, Stridor (n) and ET Tube
GI: NG Tube and Other (Absent bowel sounds)
Neurology: Unresponsive (Sedated) and Other (Has respiratory effort)
Skin: Cyanosis (n), Jaundice (n) and Rash (n)
Labs/Micro/Reports
Lab Data
06/11/24 03:48
06/12/24 03:11
Laboratory Results
06/12/24
03:11
pH 7.45
pCO2 41 H
pO2 110 H
HCO3 28.5 H
O2 Delivery Level
Microbiology
06/08/24 10:10 Blood/Venous Blood Culture - Preliminary
No Growth in 4 days- Final report to follow
06/08/24 11:45 Blood/Venous Blood Culture - Preliminary
No Growth in 72 hours- Final report to follow
[2024-06-12] MEDS: LASIX 20 MG IV ×2 (11:16→15:20)
[2024-06-12 11:32] LABS: Glucose - Point of Care 127 mg/dl (70-99)
--- NOTE | 2024-06-12 12:00 | PTCARENOTE ---
Pt remains intubated and sedated. No major changes in physical assessment. Mother at bedside. Will continue to monitor closely.
--- NOTE | 2024-06-12 13:27 | PTCARENOTE ---
Addendum entered by Lucila Pollack RN 06/12/24 13:35:
NOTE for 8am
Original Note:
Assumed care of patient. Pt rec'd sedated on ventilator. Grimaces w/ oral care and suctioning. Weak gag. Pupils 3/sluggish. Does not respond to verbal stimuli. Unrestrained. Bilateral foot drop. Scleral edema. S1 S2 reg w/ NSR on monitor.
DP/PT's by doppler. +4 generalized edema. #8 ETT [address] lip[address] Current vent settings: 16/400/+8/55%...sats 93%. Lungs diminished w/ coarse crackles and rhonchi throughout. Suctioned orally for thick clear secretions. Right nare [place] (65cm)
-> LIWS. Absent bowel sounds. Temp sensing correia draining fallon urine. Correia care done. Skin pale/ashen in color. Bilateral foot dressings noted. Sacral optifoam intact. Heels elevated on pillows. Left femoral artemio....flushed and zeroed.
(R) femoral TLC w/ fentanyl, propofol and TPN infusing...see interventions. VS documented. Safe environment confirmed. Will continue to monitor.
[2024-06-12] MEDS: TYLENOL ORAL SOLUTION 650 MG TUBE (14:07)
--- NOTE | 2024-06-12 14:15 | W.PN.SURGUPD ---
Surgical Update
Surgical Update
Patient remains critically ill, VDRF:
Surgery following for recurrent obstructive symptoms secondary to stricture of unclear etiology: Crohn's vs ischemic
Continue NGT to suction, no enteral feedings
PPI for GI ppx
TPN renewed
Hypokalemia this AM, replaced with repeat pending. Electrolyte replacement as per primary team.
Continue to trend labs
[2024-06-12 14:52] LABS: Hemoglobin 7.5 g/dL (12.0-16.0); Mean Corp Hgb Conc. 31.3 g/dL (33.0-37.0); Platelet Count 157 10^3/uL (130-400); White Blood Cell Count 26.7 10^3/uL (4.8-10.8)
--- NOTE | 2024-06-12 15:00 | W.PN.HOSP.TC ---
Today's Communication/Plan
-
Lasix daily, goal net negative approximately 500 cc daily
ARDSnet protocol
TPN, PPI
Resume Lovenox
Assessment / Plan
Assessment / Plan
Gen-sedated, intubated, supine
HEENT-NC, AT, anicteric, clear oral mm
Neck-supple
CV-reg, no M, +S1/S2, tachy; subclavian line in place
Lungs-clear B/L
Abd-soft, NT, ND
Ext-no edema
Musculoskeletal-no cyanosis, clubbing, bilateral foot drop
Skin-warm and dry
Acute hypoxic respiratory failure
-unfortunately worsening respiratory failure and now has ARDS physiology. LIkely 2/2 to aspiration pneumonitis
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
-patient refused transfer to [place] prior to intubation as per records and POA, despite initially possibly an ECMO candidate
-Prone positioning per protocol. Now supinated, PF ratio improving. No plans of proning at this time
�Continue AC/VC
� Continue ventilator settings, adjust as necessary� ARDSnet protocol for weaning as tolerated; continue sedation vacation as tolerated; Approaching tracheostomy discussions
� Status post nebulized epoprostenol, completed today
�Maintain euvolemia, slight net negative - diuretics daily
#Septic shock
��Possibly secondary to pneumonia/ARDS
� CT imaging for persistent leukocytosis
�Vasopressors weaned off
� Continue stress dose steroids, patient was on steroids in the past - wean
� Wean steroids as tolerated
� Intermittent diuresis now with anasarca
�Continue meropenem for today
�ID consulted
-monitor cbc - possibly 2/2 to sbo
#Recurrent SBO
-unclear etiology of bowel obstruction, perhaps ischemia induced strictures.
- She does not have a confirmed diagnosis of inflammatory bowel disease.
-High risk for operative intervention per surgical service given low prealbumin level, severe malnutrition and cirrhosis.
- Prealbumin remains low despite ongoing TPN. Last prealbumin was 5.2. Discussed with Dr. Godwin. I am not sure prealbumin is reliable in the setting of her underlying cirrhosis, critical illness.
-NG tube with minimal output. Continue suction; minimal bowel sounds
�TPN
� Trend labs�tentative plan for delayed operative intervention following steroid wean improvement in her nutritional/liver disease status
Intractable pain syndrome -
-complaining of severe bilateral lower extremity pain and muscle cramps which is chronic.
-Was on IV Dilaudid every 4 hours as needed prior to intubation.
-Currently on fentanyl IV as needed.
Acute anemia
Pancytopenia
� No evidence of acute bleeding
-most likely 2/2 to sepsis antibiotics although continued downtrend along with fluid resuscitation
-HIT panel negative - resume Lovenox
� Stop Lovenox
� IR consulted for replacement of subclavian triple-lumen cath
�Coags normal, can hold on cryoprecipitate at this time, no clinical evidence of DIC at this time
-transfuse 1 u today 1
-Maintain hgb >7
-Transfused 4 units of blood so far this admission. Last transfusion 06/10
- No obvious evidence of bleeding.
- Given positive fluid status of 4.8 L, suspect hemodilution induced anemia due to IV fluid administration. Monitor hemoglobin for now. Transfuse if below 7.
Pancolitis
-C. difficile antigen positive toxin negative recently treated with oral vancomycin.
#Transaminitis
-suspect 2/2 to TPN and /or DILI
-monitor
-Already known hep C carrier
�Abdominal ultrasound with severe diffuse hepatic steatosis, small volume ascites, no evidence of cholelithiasis or biliary obstruction
Cirrhosis secondary to untreated hepatitis C.
Hepatic encephalopathy
Recurrent ascites.
Anasarca
Severe protein/calorie malnutrition -continue TPN.
Hypovolemic hyponatremia -resolved.
Hypokalemia -improved.
Acute on chronic anemia
-
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
Polysubstance abuse, former IVDA on Suboxone.
Anxiety disorder
Multiple skin breakdowns
Chronic bilateral lower extremity weakness, bedbound status
History of IVDA
Full code
Dispo: Planning for palliative extubation on Thursday if no improvement; Prognosis Poor
Total time spent on today's encounter was 52 minutes which included time spent in counseling the patient/family regarding diagnosis and treatment plan as listed above, goals of care, and symptom management. Case was discussed with nursing staff,
specialists, and care coordinators/case management. All labs and imaging personally reviewed by me. Remainder the time spent in detailed review of previous records, lab data, imaging, and other medical provider documentation.
Anticipated Discharge: > 48 hours
Subjective/Interval History
-
Date of Service: June 12, 2024
No acute events
Objective Data
-
Labs:
Laboratory Results
06/12/24 06/12/24
03:11 14:30
WBC 26.7 H
Hgb 7.5 L
Hct 24.0 L
Plt Count 157 D
HCO3 28.5 H
Sodium 144 Pending
Potassium 3.2 L Pending
Chloride 115 H Pending
Carbon Dioxide 29 Pending
BUN 39 H Pending
Creatinine 0.3 L Pending
Glucose 118 H Pending
Calcium 7.5 L Pending
Vital Signs:
Vital Signs
Temp Pulse Resp BP Pulse Ox
99.8 F 98 18 135/75 93
06/12/24 12:00 06/12/24 11:16 06/12/24 06:00 06/12/24 11:16 06/12/24 12:00
I&O
06/11/24 06/12/24 06/13/24
06:59 06:59 06:59
Intake Total 2797.6 / 2877.5 2500.1 / 2582.5 709.2 / 709.2
Output Total 2004 1685 / 1735 875 / 875
Balance 792.6 / 772.5 815.1 / 847.5 -165.8 / -165.8
Review of Systems
-
History Source: Patient
All other systems: Not reviewed unless documented
Data Reviewed
-
Diagnostic Radiology: Report Reviewed by me
CT Scan: Report Reviewed by me
Labs: Labs Reviewed by me
[2024-06-12 15:02] LABS: Blood Urea Nitrogen 37 mg/dl (7-17); Carbon Dioxide 30 mmol/L (22-30); Chloride 113 mmol/L (98-107); Estimated Creatinine Clearance > 125 ml/min; Glucose 119 mg/dl (70-99); Potassium 3.5 mmol/L (3.5-5.1); Sodium 143 mmol/L (135-145); eGFR > 60.00
[2024-06-12 15:16] LABS: % Basophils 0.1 % (0-2); % Eosinophils 0.3 % (0-6); % Immature Granulocytes 3.8 % (0-0.5); % Lymphocytes 11.3 % (20.5-51.1); % Monocytes 6.9 % (1.7-9.3); % Neutrophils 77.6 % (42.2-75.2); Absolute Eosinophils 0.1 10^3/uL (0-0.7); Absolute Monocytes 1.8 10^3/uL (0.1-0.6); Absolute Neutrophils 20.7 10^3/uL (1.4-6.5); Nucleated Red Blood Cells % 0.7 %
--- NOTE | 2024-06-12 16:00 | PTCARENOTE ---
Pt remains intubated and sedated. Pt opening eyes...able to nod head yes/no to questions. Pt did nod head yes to pain....Fentanyl and propofol gtt increased once reviewed plan of care w/ MD. Vargas (pt's father) updated via telephone. Will
continue to monitor closely.
[2024-06-12] MEDS: LOVENOX 40 MG SC (17:35)
[2024-06-12 17:42] LABS: Glucose - Point of Care 114 mg/dl (70-99)
[2024-06-12] MEDS: Parenteral Nutrition, Central 1240 IV (20:08)
--- NOTE | 2024-06-12 20:15 | PTCARENOTE ---
Addendum entered by Rachel Rose RN 06/12/24 21:36:
BP 120s-130s/870s-80s. Low grade fever 100.1, doppler pedal pulses b/l. +4 generalized anasarca, +1 scleral edema. 8.0 ETT, 26 at the lip. Saturating 95%, vent settings 16/400/60%/8. Lung sounds coarse, rhonchi and crackles throughout. Thick clear
oral secretions. Right nare NGT putting out scant green drainage, set to LIWS with Q4 tap water irrigation. Abdomen round, no BM, no bowel sounds. Temp sensing correia in place draining fallon urine. Left wrist dressing CDI, sacrum and b/l feet
dressings CDI. Femoral TLC patent, WNL. Left femoral artemio zeroed, flushed, and leveled. Mom at the bedside. Fentanyl, propofol, and TPN gtt ongoing. Hourly rounding and patient safety checks ongoing.
Original Note:
Received patient intubated and sedated, grimaces to care. Pupils 3s, sluggish. B/l foot drop. Normal sinus/sinus tach, 90s-100s. BP 120s/
[2024-06-12] MEDS: VERSED 5 MG IV (21:08)
--- NOTE | 2024-06-12 21:15 | W.PN.UPDATE ---
Update Note
Progress Note Update
2100- Respiratory therapist noted cuff leak, patient audibly snoring, cuff was instilled with air twice and noted tidal volumes issues with the patient. TRACK AND FIELD COACH called for ETT exchange. Chest xray ordered, for ETT placement. Dr. Haines,
buttonhole maker, updated.
--- NOTE | 2024-06-12 21:18 | W.PN.ANESINT ---
Anesthesia Intubation Note
- Intubation Note
Intubation Note:
Diagnosis: ARDS - ETT balloon malfunction
Blade: Mac 4 glidescope
Tube Size: 8.0
Depth: 23cm
Side Taped:right
Drugs Used: zemuron 50 mg
Grade View: I
EtCO2 Present: yes
Atraumatic: yes
Attempts: 1
Insertion Start and Stop Time:
SaO2 Pre: 96
SaO2 Post: 98
Glidescope Used: yes
Other Airway Adjustments: no
Pre-Oxygenated: yes
Portable Chest X-Ray: to follow
RSI: no
Suctioned: yes inline and oral for minimal secretions
Bilateral Breath Sounds Confirmed: equal
Vent Settings:
Settings per _X__Attending Physician
Called for ETT exchange as pt not receiving full tidal volumes and cuff check with manometer too low despite air aded to ETT balloon
[2024-06-12] MEDS: REMERON 15 MG TUBE (22:28)
[2024-06-12] MEDS: MELATONIN 5 MG TUBE (22:28)
[2024-06-12 23:38] LABS: Glucose - Point of Care 144 mg/dl (70-99)
--- NOTE | 2024-06-13 00:17 | PTCARENOTE ---
Tube exchanged without any issues, mouth care done, correia care done. Otherwise patient assessment unchanged from previous.
[2024-06-13] MEDS: SUBLIMAZE 100 IV ×6 (01:05→23:16)
[2024-06-13] MEDS: MERREM 500 MG IV ×4 (03:50→21:14)
[2024-06-13] MEDS: STERILE WATER FOR INJECTION 10 ML IV ×4 (03:50→21:14)
[2024-06-13 03:53] LABS: B.E. 4.6 mmol/L; HCO3 29.2 mmol/L (21-28); O2 Saturation % 96.2 % (94-98); PCO2 43 mmHg (32-35); PO2 79 mmHg (83-108); pH 7.44 (7.35-7.45)
[2024-06-13 04:14] VITALS: BMI 27.5
[2024-06-13 04:23] LABS: Hematocrit 23.7 % (37.0-47.0); Hemoglobin 7.4 g/dL (12.0-16.0); Mean Corp Hgb Conc. 31.2 g/dL (33.0-37.0); Mean Corpuscular Hgb 30.2 pg (27.0-31.0); Mean Corpuscular Volume 96.7 fL (81.0-99.0); Platelet Count 189 10^3/uL (130-400); Red Blood Cell Count 2.45 10^6/uL (4.20-5.40); Red Cell Dist. Width 25.2 % (11.5-14.5); White Blood Cell Count 27.1 10^3/uL (4.8-10.8)
[2024-06-13 04:25] LABS: % Basophils 0.1 % (0-2); % Eosinophils 0.1 % (0-6); % Lymphocytes 10.8 % (20.5-51.1); % Monocytes 6.7 % (1.7-9.3); % Neutrophils 79.3 % (42.2-75.2); Absolute Immature Granulocytes 0.8 10^3/uL (0-0.05); Absolute Lymphocytes 2.9 10^3/uL (1.2-3.4); Absolute Monocytes 1.8 10^3/uL (0.1-0.6); Absolute Neutrophils 21.5 10^3/uL (1.4-6.5); Nucleated Red Blood Cells % 0.3 %
[2024-06-13 04:42] LABS: ALT (SGPT) 50 U/L (0-35); AST (SGOT) 62 U/L (14-36); Albumin 1.5 g/dl (3.5-5.0); Alkaline Phosphatase 190 U/L (38-126); Blood Urea Nitrogen 36 mg/dl (7-17); Calcium 7.8 mg/dl (8.4-10.2); Carbon Dioxide 29 mmol/L (22-30); Chloride 114 mmol/L (98-107); Estimated Creatinine Clearance > 125 ml/min; Glucose 125 mg/dl (70-99); Magnesium 1.8 mg/dl (1.6-2.3); Potassium 3.8 mmol/L (3.5-5.1); Sodium 145 mmol/L (135-145); Total Bilirubin 0.5 mg/dl (0.2-1.3); Total Protein 5.5 g/dl (6.3-8.2); eGFR > 60.00
[2024-06-13] MEDS: DIPRIVAN 100 IV ×3 (05:09→17:16)
[2024-06-13] MEDS: SOLU-CORTEF 25 MG IV (05:09)
[2024-06-13] MEDS: FIRVANQ 125 MG TUBE ×4 (05:09→23:16)
[2024-06-13] MEDS: FLAGYL 500 MG 100 IV ×3 (05:09→21:14)
--- NOTE | 2024-06-13 05:11 | PTCARENOTE ---
CHG bath done, sheets changed, labs sent, repositioned, and mouth care done. Otherwise patient assessment unchanged from previous.
[2024-06-13 06:00] LABS: Glucose - Point of Care 116 mg/dl (70-99)
--- NOTE | 2024-06-13 07:14 | W.PN.INTV ---
Today's Communication / Plan
Recommendations
Family aware to withdrawal tomorrow at noon
D/c TPN and accuchecks to minimize discomfort
Continue current medical care, discussed with care team
Assessment
-
34-year-old female with complex medical history including prolonged hospital stay in October 2023 for drug relapse, history of overdose/polysubstance abuse, prolonged mechanical ventilation, eventual right upper extremity amputation secondary to
necrotizing fasciitis/cellulitis, brought to [place] by mother, immediately admitted to [facility] for GI issues, followed by hospital stay at [facility] for GI issues, recurrent small bowel obstruction, recent hospital stay at
[facility] for 1 month in March 2024, treated for hepatic encephalopathy, small bowel obstruction, improved with NG tube decompression. Now returns with similar symptom complex admitted 05/11/2024 for recurrent small bowel obstruction,
pain syndrome, refusal of care at times (NG tube, PT/OT, medications), now transferred to ICU 06/02 for progressive hypoxia, bilateral infiltrates requiring intubation and mechanical ventilation
Acute hypoxic respiratory failure-ARDS post aspiration.
Intubated 06/03/2024
Progressive bilateral infiltrates
Suspect aspiration pneumonitis
Lung injury, early ARDS
Hypotension, possible sepsis versus hypovolemia
Leukocytosis
Hypokalemia/hypomagnesemia
Recurrent small bowel obstruction
Dilated small bowel per imaging
Possible stricture, possible inflammatory bowel disease
Endoscopy at outside hospital, no definitive diagnosis of Crohn's
Chronic steroid therapy per records
Prednisone 50 mg in the past
Liver cirrhosis, hepatitis C
Untreated
Ascites with paracentesis in the past
Hepatic encephalopathy with elevated ammonia in the past
Hypoalbuminemia, severe protein/calorie malnutrition
Chronic pain syndrome
Anemia
Required transfusion x 2, last 06/02
Right great hallux osteomyelitis
Status post amputation
Conditions present prior to admission
Prolonged hospital stay October 2023, [place]
VDRF
Right upper extremity amputation secondary to necrotizing fasciitis entheses
Required HD (pt refused to continue per Father)
Anxiety disorder/bipolar disorder
Polysubstance abuse, IV drug abuse
On Suboxone in the past
Drug use intermittently since age of 15 according to father
Multiple rehabilitation efforts in the past
Chronic lower extremity weakness, sedentary/bedbound since October 2023
Plan
Remains critically ill.
Deeply sedated with fentanyl/propofol, vecuronium as needed
No longer requiring vasopressors.
Has not been able to wean from mechanical ventilation due to oxygen desaturation increased work of breathing.
Suspect significant critical illness polyneuropathy as well on top of resolving ARDS.
-
Continue with current plan:
Maintain volume-cycled ventilation -day #9
AC 16/400/8/55%
Peak pressures around 30, it increases when patient has increased respiratory effort.
Will continue to monitor pulmonary mechanics and attempt to maintain a plateau pressure under 30.
-
ABG 06/12/2024: 7.45/41/110
ABG 06/11/2024: 7.46/39/64-patient tachypneic
ABG 06/09/2024: 7.46/38/89 on above settings.
-
Chest x-ray 06/10/2024, stable bilateral infiltrates. ET tube 7 cm above the jason, no pneumothorax-ET tube repositioned.
Chest x-ray chest x-ray 06/11/2019 25-8 50 5 AM: Ongoing bilateral infiltrates. Bilateral pleural effusions. ET tube now in adequate position
-
Maintain sedation, propofol/fentanyl, vecuronium as needed-with sedation breaks, tachypneic and developed hypoxemia.
Has not received paralytics in days
Currently overbreathing the ventilator
Can use versus as needed to optimize ventilator synchrony.
Will continue to attempt sedation breaks per protocol.
During sedation breaks patient becomes tachypneic, not following commands
-
Status post nebulized epoprostenol started 06/04, wean overnight 06/05 per protocol-discontinued 06/06/2024. Tolerated.
Rotational bed
Status post proning 06/06/2024, supine position early morning babysitter 06/07/2024.
-
As pulmonary mechanics are improving with decrease sedation and evaluate readiness for spontaneous breathing trial. Not ready at this point 06/12/2024.
Suspect will not be able to wean due to profound muscle weakness/anasarca-likely critical illness polyneuropathy
-
Has remained hemodynamically stable for days.
Not requiring vasopressors.
Will attempt to maintain negative fluid balance
Continue IV hydrocortisone, decreased to every 12 hours 06/08/2024. Discontinue on 06/13/2024 if patient remains stable hemodynamically.
-
Echocardiogram with normal biventricular function, PA pressure 31
Responded well to Lasix.
Additional Lasix today 20 mg IV 06/11/2024.
Will start twice a day IV Lasix 20 mg 06/12/2024, hopefully will tolerate and can achieve negative fluid balance going forward.
Repeat BMP 1200 to assure potassium is corrected before giving Lasix.
-
Leukocytosis improved: Multiple sources possible including intra-abdominal. Not moving bowels.
Afebrile.
Not requiring vasopressors.
Abdominal film 06/08/2024: Nonspecific bowel pattern. No subdiaphragmatic air
Ultrasound of the abdomen 06/08/2024: Severe diffuse hepatic steatosis. Small volume ascites. No sonographic evidence of cholelithiasis or obstruction
-
Continue with antibiotics for now, presently on meropenem-defer to infectious disease- continue IV metronidazole and oral vancomycin.
IV meropenem.
Afebrile
Patient has multiple potential sources of infection.
Blood cultures 06/08/2024-so far negative
Respiratory culture with usual respiratory starla.
Negative influenza
Subclavian triple-lumen catheter discontinued 06-09-2023
Femoral line obtained with interventional radiology
Unfortunately there is no other IV access points
Unable to place PICC line patient has stenotic major veins. Likely due to her history of IVDA.
Femoral arterial line in place
-
Thrombocytopenia: Multiple etiologies including drug-induced, HIT, advanced liver disease.
Decreased fibrinogen and D-dimer increased could be seen in patient with liver disease.
PTT and INR are normal.
Platelets are recovering up to 105 K on 06/11/2024
No evidence for bleeding diathesis
Repeat CBC today-pending
Monitor for bleeding
HIT analysis :0.287 (normal less than 0.4) okay to restart heparin
-
CT chest abdomen pelvis without acute abnormalities. Continues to have significant bilateral infiltrates, pleural effusions. No acute collections intra-abdominal.
CT head no acute abnormalities. Mild sinusitis
Upper and lower extremity Dopplers without acute DVT
-
Anemia: Patient received 2 units of PRBC since hospital stay, last being 06/02
Multifactorial. Ongoing. Blood loss, chronic disease.
Status post additional unit of packed red blood cells given to due to hemoglobin less than 7 -06/10/2024
Good response, hemoglobin now 8.3.
No evidence for bleeding.
Will continue to minimize transfusion given underlying acute lung injury.
-
Follow urine output-renal function is normal.
Alva catheter in place
Patient with history of dialysis for prolonged period in October 2023 while in [place].
-
Continues with TPN. Has required TPN throughout hospital stay. Unfortunate patient with protein calorie malnutrition
Hypoalbuminemia noted-patient is in anasarca.
NG tube in place, maintain to suction especially when prone
Dilated small bowel loops based on prior studies
Surgery continues to follow
Medications per NG tube if okay with surgery
DVT prophylaxis: Restart Lovenox prophylaxis. HIT panel negative
GI prophylaxis: Remains on pantoprazole
-
Prognosis overall poor.
Prior discussion:
Dyan 06/13/24- spoke with father at bedside who understands her poor prognosis. He is prepared to terminally extubate tomorrow by Noon. He wishes for more family to be present and say goodbye.
Zaki - Father admits that patient has been difficult, refusing therapy multiple times. She listens to him when he tells her to do it but when he leaves the room, she reverts to refusing care and therapy. He also is asking 'why are we giving her
pain medicines? She is an addict?' I reviewed with father that when patient is screaming in excruciating pain, we cannot ignore this. We have to find a happy medium between controlling pain and avoiding oversedation. This will be difficult given
her drug abuse/polysubstance abuse history. Father states she has been using drugs probably since age of 15. Father also admits that patient has refused medications in the past, refuses placement of NG tube, refused nutrition when offered. Father
also upset that daughter is not getting nutrition. However upon reviewing records, with every attempt to advance diet, patient developed significant abdominal pain.
I also reviewed with father and stepmother worst-case scenario where patient progresses to multisystem organ failure, developed complication of prolonged hospital stay, prolonged mechanical ventilation such as thromboembolic disease, recurrent
infections, bleeding, cardiac complications, renal complications. He did not want to hear this but I proceeded with stepmother as father stepped away. I told the stepmother that it is important for him to be hopeful of outcome but to be aware of
potential complications.
Father confirmed full CODE STATUS
Dr. Haines Updated mother and father at bedside at length 06/06/2024, 06/07/2024, 06/08/2024-06/09/2024, 06/10/2024, 06/11/2024. All questions answered.
Prognosis continues to be very poor.
Dr. Haines updated mother and father at the bedside 06/12/2024. Now patient is DNR.
We discussed tracheotomy: It appears that under living will patient did not want to prolong mechanical ventilation, tracheotomy or artificial feedings. They will contemplate comfort measures if there is no ongoing improvement in the next 3 days or
so.
-
See prior update note for transfer to tertiary care center. No clear pathway for transfer to [facility]
Family aware
The above was reviewed at length with critical care nursing, respiratory care, primary service, infectious disease, surgery.
-----
Critical care statement: A total of 50 minutes of critical care time was provided for this patient today. This includes management of unstable vital signs, evaluation of the patient at bedside, reviewing the patient's pertinent medical records
including ventilator settings, arterial blood gases, radiographs, microbiology, laboratory evaluations and discussion with primary team, critical care nursing, and respiratory therapy.
Subjective Dataa
Subjective Data
Date of Service:
Date of Service: June 13, 2024
Chief Complaint: Asset Protection Officer Follow Up (ARDS) and Vent Management Follow Up
Subjective:
No new events ON, remains critically ill on vent
Father at bedside, tearful but understands prognosis
Objective Data
Data Reviewed
Vital Signs / I&O / Oxygen:
Vital Signs
Temp Pulse Resp BP Pulse Ox
98.8 F 90 29 128/71 91
06/13/24 03:53 06/13/24 06:00 06/13/24 04:00 06/12/24 15:20 06/13/24 06:00
Intake and Output
06/12/24 06/13/24 06/14/24
06:59 06:59 06:59
Intake Total 2500.1 / 2582.5 2551.6 / 2551.6
Output Total 1685 / 1735 2290 / 2290
Balance 815.1 / 847.5 261.6 / 261.6
SaO2 [A/C] 91
SaO2 91
Nasal Cannula flow liters per 60
minute
Physical Exam
General: Comfortable and Other (Anasarca)
HEENT: Normocephalic
Cardiovascular: S1-S2, Regular Rhythm (Tachycardic), Murmur (n), Rub (n), Peripheral Edema (n) and Other (Right upper extremity amputation, toe dressing)
Respiratory: Wheeze (n), Crackles (few posteriorly), Rhonchi (few), Non-Labored Respirations, Stridor (n) and ET Tube
GI: Soft, Non Distended, NG Tube and Other (Absent bowel sounds)
Neurology: Unresponsive (Sedated) and Other (Has respiratory effort)
Skin: Cyanosis (n), Jaundice (n) and Rash (n)
Labs/Micro/Reports
Lab Data
06/13/24 03:47
06/13/24 03:47
Laboratory Results
06/13/24
03:47
pH 7.44
pCO2 43 H
pO2 79 L
HCO3 29.2 H
O2 Delivery Level
Microbiology
06/08/24 11:45 Blood/Venous Blood Culture - Preliminary
No Growth in 4 days- Final report to follow
06/08/24 10:10 Blood/Venous Blood Culture - Preliminary
No Growth in 4 days- Final report to follow
--- NOTE | 2024-06-13 07:30 | PTCARENOTE ---
Assumed care of patient. Pt rec'd sedated on ventilator. Sats dipping to 87% on current vent settings, RT contacted, FI02 increased at this time. see flowsheet. Grimaces w/ oral care and suctioning, Weak gag. Pupils 3/sluggish. Does not respond
to verbal stimuli, does independently move head and arms occasionally. Unrestrained. Bilateral foot drop. Scleral edema. S1 S2 reg w/ NSR on monitor. DP/PT's by doppler. +4 generalized edema. #8 ETT [address] lip. Tube was exchanged overnight
per report. Lungs diminished w/ coarse crackles and rhonchi throughout. Suctioned orally for thick clear secretions. Right nare [place] (65cm) -> LIWS. Absent bowel sounds. Temp sensing correia draining fallon urine. Correia care done. Skin
pale/ashen in color. Bilateral foot dressings noted. Sacral optifoam intact. Heels elevated on pillows. Turned and repositioned and CHG bath done. Left femoral artemio....flushed and zeroed. (R) femoral TLC w/ fentanyl, propofol and TPN
infusing...see interventions. VS documented. Safe environment maintained. Dad sitting at bedside, mom sleeping on couch.
[2024-06-13] MEDS: NOVOLOG FLEXPEN-LOW RESISTANCE SC ×3 (07:53→15:39)
[2024-06-13] MEDS: REFRESH CELLUVISC GEL 1 DROPS OPHTH ×2 (08:45→19:42)
[2024-06-13] MEDS: LASIX 20 MG IV ×2 (08:45→15:22)
[2024-06-13] MEDS: NEURONTIN 400 MG TUBE ×3 (08:45→21:14)
[2024-06-13] MEDS: MIRALAX 17 GRAMS TUBE (08:45)
[2024-06-13] MEDS: NSS (PRESERVATIVE FREE) 10 ML IV (08:47)
[2024-06-13] MEDS: PROTONIX IV 40 MG IV (08:47)
[2024-06-13] MEDS: HYDROPHOR 1 APPLIC TOPICAL (08:48)
[2024-06-13] MEDS: FLEXERIL 10 MG TUBE ×3 (08:48→21:13)
[2024-06-13 08:55] LABS: NT-proBNP 499 pg/ml
[2024-06-13 09:20] VITALS: BP 138/91
[2024-06-13] MEDS: SUBLIMAZE 100 MCG IV ×4 (09:24→22:02)
--- NOTE | 2024-06-13 10:47 | W.PN.ID1 ---
Date of Service
Date of Service: June 13, 2024
Today's Communication
Continue antibiotics for today.
Assessment / Plan
Leukocytosis
-Improved over several days, but now seems to have stabilized.
Fever
- recurred x 1 evening of 06/11/24
Recurrent SBO +/- ileus
-Unclear if secondary to Crohn's versus other inflammatory bowel disease.
VDRF
ARDS 2* Asp PNA
Thrombocytopenia
Increase LFT's
Profound protein calorie malnutrition (albumin = 1.5)
Anemia
Hx Cirrhosis
Hx hepatitis C (untreated)
Hx IVDA
Recommendations:
Sputum culture unrevealing; and positive only for normal starla.
Blood cultures negative. Wound culture from 05/16 appears to be a superficial culture and reflects superficial colonization only.
Given suspected inflammatory bowel issues, would avoid probiotics.
Abdominal ultrasound shows severe diffuse hepatic steatosis, but no evidence for cholelithiasis or biliary obstruction. Abdominal flatplate unrevealing.
Repeat blood cultures neg to date.
hx of C. diff colonization ( Ag(+)/toxin (-) in Apr).
Unable to send stool for C. diff due to chronic bowel obstruction
Continue empiric C. diff treatment IV metronidazole 500mg q8 and Vanco 125mg by tube q6h (d5) -> Leukocytosis trending down.
Fever x 1 last night. Monitor for now.
Continue meropenem (d#10)
Follow WBC, vitals, LFTs, platelets.
Patient remains critically ill in intensive care unit on vent support.
Overall prognosis appears progressively dismal for recovery. At this point, doubt any realistic potential return to a quality of life.
Family contemplating comfort measures if no improvement next 48hrs, as per patient's wishes/living will.
Await further discussion regarding GOC. Patient now DNR.
����������������������������������������������������������
Chief Complaint
-: Leukocytosis, Clinical Sepsis and Other (ARDS)
Subjective / Review of Systems
Patient seen and examined. Remains on vent. Chart reviewed. ET tube changed overnight secondary to cuff leak. Isolated temperature overnight.
Vital Signs / Physical Exam
Vital Signs
Vital Signs
Temp Pulse Resp BP Pulse Ox
97.8 F 94 0 138/91 90
06/13/24 08:44 06/13/24 09:20 06/13/24 09:20 06/13/24 09:20 06/13/24 09:20
Physical Exam
Constitutional: Acutely Ill and Chronically Ill
Oropharyngeal: Other (ET tube in place. NG tube in place.)
Cardiovascular: Regular Rate, S1/S2 and Other (tachycardic)
Pulmonary: Coarse and Other (On vent.)
Gastrointestinal: Soft, Distended (moderate) and Other (No bowel sounds auscultated. Positive anasarca)
Genito-Urinary: Alva and Clear Urine
Extremities: Edema (Upper extremities and lower extremities bilaterally; 4+); Negative Erythema
Neurological: Other (Sedated)
Objective Data
Lab Data
Lab Results
06/13/24 03:47
06/13/24 03:47
PT 16.3 Sec (11.4-14.6) H 06/09/24 05:13
INR 1.26 06/09/24 05:13
APTT 34.6 Sec (23.4-35.0) 06/09/24 05:13
Estimated Creat Clear > 125 ml/min 06/13/24 03:47
Lactic Acid 1.1 mmol/L (0.7-2.0) 06/03/24 02:03
Total Bilirubin 0.5 mg/dl (0.2-1.3) 06/13/24 03:47
AST 62 U/L (14-36) H 06/13/24 03:47
ALT 50 U/L (0-35) H 06/13/24 03:47
Alkaline Phosphatase 190 U/L (38-126) H 06/13/24 03:47
C-Reactive Protein 64.80 mg/L (0.0-10.00) H 05/11/24 04:38
Most recent labs reviewed.
Micro Results:
06/08/24 10:10 Blood Culture - Final
Blood/Venous No Growth - Final Report
06/08/24 11:45 Blood Culture - Preliminary
Blood/Venous No Growth in 4 days- Final report to follow
06/03/24 04:12 Respiratory Culture - Final
Endotracheal Usual Respiratory Starla
Gram Stain - Final
06/03/24 01:46 Influenza Types A & B ([facility]) - Final
Nasal Swab Negative for Influenza A & B, NAAT
Negative results must be combined with clinical observations
and patient history.
Nucleic Acid Amplification test (NAAT)performed on the
[employer] platform.
05/23/24 14:01 Blood Culture - Final
Blood/Venous No Growth - Final Report
05/26/24 23:16 - Final
Feces/Stool Negative for Norovirus GI and GII.
05/16/24 11:15 Wound Culture - Final
Foot - Right Serratia marcescens
Gram Stain - Final
05/16/24 11:15 Anaerobic Culture - Final
Foot - Right NO ANAEROBES ISOLATED
05/12/24 04:38 Urine Culture - Final
Urine Escherichia coli
05/11/24 22:56 MRSA Screen - Final
Nose No Methicillin Resistant Staphylococcus aureus isolated.
Imaging:
06/04/2024 CXR (portable): Stable bilateral pleural effusions, progressed. Bilateral interstitial and airspace opacities overall slightly progressed from prior exam. Findings again likely represent multifocal pneumonia versus developing ARDS.
06/03/2024 ECHO (TTE): Normal biventricular size and systolic function without regional wall motion abnormalities. EF approximately 55 to 60%. No intracardiac mass or thrombus formation is noted. Please see full dictation for additional detail.
05/17/2024 CT abdomen/pelvis with IV contrast: Significant dilatation of small bowel loops extending into the region of the distal ileum. In the pelvis there is increased enhancement of the wall of several loops of small bowel with slight stranding
of the adjacent fat with suggestion of a transition in caliber in the right pelvis as described. Findings compatible with small bowel obstruction. No evidence of free intraperitoneal air.
Care Review
Plan reviewed with: Physician (Critical Care)
--- NOTE | 2024-06-13 11:43 | PTCARENOTE ---
Pt reassessed, no changes. Plan discussed on grand rounds with care team and family. Pt's central line dressing changed per protocol. Q2H turn and repositioning maintained.
--- NOTE | 2024-06-13 13:00 | W.PN.HOSP.TC ---
Today's Communication/Plan
-
Continue current care
Assessment / Plan
Assessment / Plan
Gen-sedated, intubated, supine
HEENT-NC, AT, anicteric, clear oral mm
Neck-supple
CV-reg, no M, +S1/S2, tachy; subclavian line in place
Lungs-clear B/L
Abd-soft, NT, ND
Ext-no edema
Musculoskeletal-no cyanosis, clubbing, bilateral foot drop
Skin-warm and dry
Acute hypoxic respiratory failure
-unfortunately worsening respiratory failure and now has ARDS physiology. LIkely 2/2 to aspiration pneumonitis
-Intubated [employer] 06/03 for respiratory failure.
-patient refused transfer to [facility] prior to intubation as per records and POA, despite initially possibly an ECMO candidate
-Prone positioning per protocol. Now supinated, PF ratio improving. No plans of proning at this time
�Continue AC/VC
� Continue ventilator settings, adjust as necessary� ARDSnet protocol for weaning as tolerated; continue sedation vacation as tolerated; Approaching tracheostomy discussions
� Status post nebulized epoprostenol, completed today
�Maintain euvolemia, slight net negative - diuretics daily
Septic shock
��Possibly secondary to pneumonia/ARDS
� CT imaging for persistent leukocytosis
�Vasopressors weaned off
� Continue stress dose steroids, patient was on steroids in the past - wean
� Wean steroids as tolerated
� Intermittent diuresis now with anasarca
�Continue meropenem for today
�ID consulted
-monitor cbc - possibly 2/2 to sbo
Recurrent SBO
-unclear etiology of bowel obstruction, perhaps ischemia induced strictures.
- She does not have a confirmed diagnosis of inflammatory bowel disease.
-High risk for operative intervention per surgical service given low prealbumin level, severe malnutrition and cirrhosis.
- Prealbumin remains low despite ongoing TPN. Last prealbumin was 5.2. Discussed with Dr. Godwin. I am not sure prealbumin is reliable in the setting of her underlying cirrhosis, critical illness.
-NG tube with minimal output. Continue suction; minimal bowel sounds
�TPN
� Trend labs�tentative plan for delayed operative intervention following steroid wean improvement in her nutritional/liver disease status
Intractable pain syndrome -
-complaining of severe bilateral lower extremity pain and muscle cramps which is chronic.
-Was on IV Dilaudid every 4 hours as needed prior to intubation.
-Currently on fentanyl IV as needed.
Acute anemia
Pancytopenia
� No evidence of acute bleeding
-most likely 2/2 to sepsis antibiotics although continued downtrend along with fluid resuscitation
-HIT panel negative - resume Lovenox
� Stop Lovenox
� IR consulted for replacement of subclavian triple-lumen cath
�Coags normal, can hold on cryoprecipitate at this time, no clinical evidence of DIC at this time
-transfuse 1 u today /
-Maintain hgb >7
-Transfused 4 units of blood so far this admission. Last transfusion /
- No obvious evidence of bleeding.
- Given positive fluid status of 4.8 L, suspect hemodilution induced anemia due to IV fluid administration. Monitor hemoglobin for now. Transfuse if below 7.
Pancolitis
-C. difficile antigen positive toxin negative recently treated with oral vancomycin.
Transaminitis
-suspect 2/2 to TPN and /or DILI
-monitor
-Already known hep C carrier
�Abdominal ultrasound with severe diffuse hepatic steatosis, small volume ascites, no evidence of cholelithiasis or biliary obstruction
Cirrhosis secondary to untreated hepatitis C.
Hepatic encephalopathy
Recurrent ascites.
Anasarca
Severe protein/calorie malnutrition -continue TPN.
Hypovolemic hyponatremia -resolved.
Hypokalemia -improved.
Acute on chronic anemia
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
Polysubstance abuse, former IVDA on Suboxone.
Anxiety disorder
Multiple skin breakdowns
Chronic bilateral lower extremity weakness, bedbound status
History of IVDA
Full code
Dispo: Planning for palliative extubation on Thursday if no improvement; Prognosis Poor
Anticipated Discharge: Within 24 hours
Subjective/Interval History
-
Date of Service: June 13, 2024
Patient seen and examined. Remains intubated, sedated.
Objective Data
-
Labs:
Laboratory Results
06/13/24
03:47
WBC 27.1 H
Hgb 7.4 L
Hct 23.7 L
Plt Count 189 D
HCO3 29.2 H
Sodium 145
Potassium 3.8
Chloride 114 H
Carbon Dioxide 29
BUN 36 H
Creatinine 0.3 L
Glucose 125 H
Calcium 7.8 L
Total Bilirubin 0.5
AST 62 H
ALT 50 H
Alkaline Phosphatase 190 H
Vital Signs:
Vital Signs
Temp Pulse Resp BP Pulse Ox
97.5 F 81 25 138/91 91
06/13/24 11:15 06/13/24 11:00 06/13/24 10:00 06/13/24 09:20 06/13/24 12:00
I&O
06/12/24 06/13/24 06/14/24
06:59 06:59 06:59
Intake Total 2500.1 / 2582.5 2551.6 / 2640.0 710.15 / 710.15
Output Total 1685 / 1735 2290 / 2310 830 / 830
Balance 815.1 / 847.5 261.6 / 330.0 -119.85 / -119.85
Review of Systems
-
Unable to obtain full review of systems at this time due to: Acuity and Patient Intubation
--- NOTE | 2024-06-13 13:18 | W.PN.SURGUPD ---
Addendum entered and electronically signed by OBEY Bridges 06/13/24 14:11:
spoke with pharmacy team, as patient will likely be transitioning to [facility], will hold on renewing TPN for tonight's dose.
Please call surgery service if TPN is to be reinitiated.
Original Note:
Surgical Update
Surgical Update
Patient remains critically ill, VDRF:
Surgery following for recurrent obstructive symptoms secondary to stricture of unclear etiology: Crohn's vs ischemic
Continue NGT to suction, no enteral feedings
PPI for GI ppx
TPN renewed, appreciate nutrition recs
Continue to trend labs
--- NOTE | 2024-06-13 13:39 | PTCARENOTE ---
[facility] notified of plan for palliative extubation planned for tomorrow. Rep stated he will contact clinical associate to call in to gather further information.
--- NOTE | 2024-06-13 14:20 | CM ---
CM following re: discharge planning.
Discussed in Rounds, reviewed pt's chart, met with pt and pt's mother at bedside. Per Rounds meeting, pt remains critically ill, remains intubated, prognosis poor, continue supportive care with possible palliative extubation tomorrow if no
improvement.
CM met with pt's mother at bedside. She went to [facility] acknowledging the plan of palliative extubation tomorrow. Emotional support offered and provided during entire meeting. Pt's mother stated that her sister is checking with homes regarding
cremations services with viewing. pt's mother stated she does not have enough money and she will looking for support from her family. Printed information regarding cremation and services in [facility] given to pt's mother.
D/C plan: possible palliative extubation tomorrow 06/14/24.
CM will follow with discharge plan updates as hospitalization progresses
[2024-06-13] MEDS: LOVENOX 40 MG SC (17:16)
--- NOTE | 2024-06-13 18:06 | PTCARENOTE ---
[facility] Pat remains on unit, chart review ongoing. Q2T and repositioning continue. No changes from previous assessment. Safe environment maintained.
--- NOTE | 2024-06-13 20:00 | PTCARENOTE ---
Received pt from previous RN. Pt unresponsive, responds to tactile stimuli. NSR on the monitor. ETT #8 24 @ lip. AC 16/400/100%/8, O2 sat 98%, lungs coarse/rhonchi/diminished. Right nare NG @ 65 cm to low intermittent suction. Alva in place. PRN
Fentanyl given (see MAR). Fent and prop gtt (see worlist). [facility] rep Adilia in the room talking to the pts mom. Pt family going ahead with [facility], mom signing paperwork. Emotional support provided.
[2024-06-13] MEDS: REMERON 15 MG TUBE (21:13)
[2024-06-13] MEDS: MELATONIN 5 MG TUBE (21:13)
[2024-06-13 21:56] LABS: B.E. 5.4 mmol/L; HCO3 29.9 mmol/L (21-28); PCO2 43 mmHg (32-35); PO2 66 mmHg (83-108); pH 7.45 (7.35-7.45)
[2024-06-13 22:00] LABS: Glucose - Point of Care 77 mg/dl (70-99)
--- NOTE | 2024-06-13 22:00 | RESPNOTE ---
PT was taken off of A/C settings and placed on minimal CPAP settings per GOL and she tolerated less than a minute before being placed back on her A/C settings. A NIF was obtained afterwards, with the best being -18 cmh20.
[2024-06-13 22:11] LABS: INR 1.05; PT 14.1 Sec (11.4-14.6)
[2024-06-13 22:12] LABS: APTT 36.4 Sec (23.4-35.0)
--- NOTE | 2024-06-13 22:12 | PTCARENOTE ---
Around 2112 Prop gtt decreased per [facility]OL rep Una to obtain a more accurate neuro status. Around 2204 prop gtt increased to prior dose after pt failed breathing trail.
[2024-06-13 22:14] LABS: Chloride 110 mmol/L (98-107); Potassium 3.1 mmol/L (3.5-5.1); Sodium 140 mmol/L (135-145)
[2024-06-13 22:16] LABS: ALT (SGPT) 45 U/L (0-35); AST (SGOT) 59 U/L (14-36); Albumin 1.5 g/dl (3.5-5.0); Alkaline Phosphatase 183 U/L (38-126); Amylase 35 U/L (30-110); Blood Urea Nitrogen 37 mg/dl (7-17); Calcium 7.5 mg/dl (8.4-10.2); Carbon Dioxide 31 mmol/L (22-30); Creatine Phosphokinase < 20 U/L (30-135); Estimated Creatinine Clearance > 125 ml/min; Glucose 74 mg/dl (70-99); Lipase 44 U/L (23-300); Magnesium 1.8 mg/dl (1.6-2.3); Phosphorus 3.5 mg/dl (2.5-4.5); Total Bilirubin 0.4 mg/dl (0.2-1.3); Total Protein 5.3 g/dl (6.3-8.2); eGFR > 60.00
[2024-06-13 22:18] LABS: Hematocrit 25.6 % (37.0-47.0); Hemoglobin 7.8 g/dL (12.0-16.0); Mean Corp Hgb Conc. 30.5 g/dL (33.0-37.0); Mean Corpuscular Hgb 29.5 pg (27.0-31.0); Platelet Count 234 10^3/uL (130-400); Red Blood Cell Count 2.64 10^6/uL (4.20-5.40); Red Cell Dist. Width 25.2 % (11.5-14.5); White Blood Cell Count 28.6 10^3/uL (4.8-10.8)
[2024-06-13 22:22] LABS: Troponin I < 0.012 ng/ml
[2024-06-13] MEDS: KCL 100 IV (22:24)
[2024-06-13 22:29] LABS: Urine Albumin 1+ (Neg - Trace); Urine Bilirubin Negative (Negative); Urine Character Slightly Cloudy (Clear); Urine Color Amber; Urine Glucose Negative (Negative); Urine Ketone Negative (Negative); Urine Leukocyte 2+ (Negative); Urine Nitrite Negative (Negative); Urine Occult Blood 1+ (Negative); Urine Urobilinogen Negative (Neg - 1+)
[2024-06-13 22:32] LABS: Beta HCG Quantitative < 2.39 mIU/ml
[2024-06-13 22:35] LABS: % Basophils 0.1 % (0-2); % Eosinophils 0.6 % (0-6); % Immature Granulocytes 2.3 % (0-0.5); % Lymphocytes 9.4 % (20.5-51.1); % Monocytes 8.5 % (1.7-9.3); % Neutrophils 79.1 % (42.2-75.2); Absolute Eosinophils 0.2 10^3/uL (0-0.7); Absolute Immature Granulocytes 0.7 10^3/uL (0-0.05); Absolute Lymphocytes 2.7 10^3/uL (1.2-3.4); Absolute Monocytes 2.4 10^3/uL (0.1-0.6); Absolute Neutrophils 22.7 10^3/uL (1.4-6.5); Nucleated Red Blood Cells % 0.2 %
[2024-06-13 22:42] LABS: Urine Bacteria Moderate (Negative); Urine White Cell >100 /HPF (0-5); Urine Yeast Many (Negative)
--- NOTE | 2024-06-13 23:31 | PTCARENOTE ---
Notified by [employer] rep, pt is unable to donate any organs. Mom, dad and ICU PATIENT [employer] updated by [employer] rep.
[2024-06-14] MEDS: DIPRIVAN 100 IV ×2 (00:10→06:05)
[2024-06-14] MEDS: SUBLIMAZE 100 IV ×3 (03:02→10:54)
[2024-06-14] MEDS: MERREM 500 MG IV (03:46)
[2024-06-14] MEDS: STERILE WATER FOR INJECTION 10 ML IV (03:46)
[2024-06-14 03:50] VITALS: BMI 27.2
--- NOTE | 2024-06-14 04:08 | PTCARENOTE ---
AM labs provided. Systems reviewed, no new changes in assessment.
[2024-06-14] MEDS: SUBLIMAZE 100 MCG IV ×6 (04:37→12:42)
[2024-06-14] MEDS: FIRVANQ 125 MG TUBE (05:07)
[2024-06-14] MEDS: FLAGYL 500 MG 100 IV (05:07)
--- NOTE | 2024-06-14 07:10 | W.PN.INTV ---
Today's Communication / Plan
Recommendations
Family at bedside, planning for w/d of care at Noon
Plan of care for comfort measures discussed with care team, orders are placed
All questions answered
Assessment
-
34-year-old female with complex medical history including prolonged hospital stay in October 2023 for drug relapse, history of overdose/polysubstance abuse, prolonged mechanical ventilation, eventual right upper extremity amputation secondary to
necrotizing fasciitis/cellulitis, brought to [place] by mother, immediately admitted to [facility] for GI issues, followed by hospital stay at [facility] for GI issues, recurrent small bowel obstruction, recent hospital stay at
[facility] for 1 month in March 2024, treated for hepatic encephalopathy, small bowel obstruction, improved with NG tube decompression. Now returns with similar symptom complex admitted 05/11/2024 for recurrent small bowel obstruction,
pain syndrome, refusal of care at times (NG tube, PT/OT, medications), now transferred to ICU 06/02 for progressive hypoxia, bilateral infiltrates requiring intubation and mechanical ventilation
Acute hypoxic respiratory failure-ARDS post aspiration.
Intubated 06/03/2024
Progressive bilateral infiltrates
Suspect aspiration pneumonitis
Lung injury, early ARDS
Hypotension, possible sepsis versus hypovolemia
Leukocytosis
Hypokalemia/hypomagnesemia
Recurrent small bowel obstruction
Dilated small bowel per imaging
Possible stricture, possible inflammatory bowel disease
Endoscopy at outside hospital, no definitive diagnosis of Crohn's
Chronic steroid therapy per records
Prednisone 50 mg in the past
Liver cirrhosis, hepatitis C
Untreated
Ascites with paracentesis in the past
Hepatic encephalopathy with elevated ammonia in the past
Hypoalbuminemia, severe protein/calorie malnutrition
Chronic pain syndrome
Anemia
Required transfusion x 2, last 06/02
Right great hallux osteomyelitis
Status post amputation
Conditions present prior to admission
Prolonged hospital stay October 2023, [place]
VDRF
Right upper extremity amputation secondary to necrotizing fasciitis entheses
Required HD (pt refused to continue per Father)
Anxiety disorder/bipolar disorder
Polysubstance abuse, IV drug abuse
On Suboxone in the past
Drug use intermittently since age of 15 according to father
Multiple rehabilitation efforts in the past
Chronic lower extremity weakness, sedentary/bedbound since October 2023
Plan
Remains critically ill.
Deeply sedated with fentanyl/propofol, vecuronium as needed
No longer requiring vasopressors.
Has not been able to wean from mechanical ventilation due to oxygen desaturation increased work of breathing.
Suspect significant critical illness polyneuropathy as well on top of resolving ARDS.
-
Continue with current plan:
Maintain volume-cycled ventilation -day #9
AC 16/400/8/55%
Peak pressures around 30, it increases when patient has increased respiratory effort.
Will continue to monitor pulmonary mechanics and attempt to maintain a plateau pressure under 30.
-
ABG 06/12/2024: 7.45/41/110
ABG 06/11/2024: 7.46/39/64-patient tachypneic
ABG 06/09/2024: 7.46/38/89 on above settings.
-
Chest x-ray 06/10/2024, stable bilateral infiltrates. ET tube 7 cm above the jason, no pneumothorax-ET tube repositioned.
Chest x-ray chest x-ray 06/11/2019 25-8 50 5 AM: Ongoing bilateral infiltrates. Bilateral pleural effusions. ET tube now in adequate position
-
Maintain sedation, propofol/fentanyl, vecuronium as needed-with sedation breaks, tachypneic and developed hypoxemia.
Has not received paralytics in days
Currently overbreathing the ventilator
Can use versus as needed to optimize ventilator synchrony.
Will continue to attempt sedation breaks per protocol.
During sedation breaks patient becomes tachypneic, not following commands
-
Status post nebulized epoprostenol started 06/04, wean overnight 06/05 per protocol-discontinued 06/06/2024. Tolerated.
Rotational bed
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
-
As pulmonary mechanics are improving with decrease sedation and evaluate readiness for spontaneous breathing trial. Not ready at this point 06/12/2024.
Suspect will not be able to wean due to profound muscle weakness/anasarca-likely critical illness polyneuropathy
-
Has remained hemodynamically stable for days.
Not requiring vasopressors.
Will attempt to maintain negative fluid balance
Continue IV hydrocortisone, decreased to every 12 hours 06/08/2024. Discontinue on 06/13/2024 if patient remains stable hemodynamically.
-
Echocardiogram with normal biventricular function, PA pressure 31
Responded well to Lasix.
Additional Lasix today 20 mg IV 06/11/2024.
Will start twice a day IV Lasix 20 mg 06/12/2024, hopefully will tolerate and can achieve negative fluid balance going forward.
Repeat BMP 1200 to assure potassium is corrected before giving Lasix.
-
Leukocytosis improved: Multiple sources possible including intra-abdominal. Not moving bowels.
Afebrile.
Not requiring vasopressors.
Abdominal film 06/08/2024: Nonspecific bowel pattern. No subdiaphragmatic air
Ultrasound of the abdomen 06/08/2024: Severe diffuse hepatic steatosis. Small volume ascites. No sonographic evidence of cholelithiasis or obstruction
-
Continue with antibiotics for now, presently on meropenem-defer to infectious disease- continue IV metronidazole and oral vancomycin.
IV meropenem.
Afebrile
Patient has multiple potential sources of infection.
Blood cultures 06/08/2024-so far negative
Respiratory culture with usual respiratory starla.
Negative influenza
Subclavian triple-lumen catheter discontinued 06-09-2023
Femoral line obtained with interventional radiology
Unfortunately there is no other IV access points
Unable to place PICC line patient has stenotic major veins. Likely due to her history of IVDA.
Femoral arterial line in place
-
Thrombocytopenia: Multiple etiologies including drug-induced, HIT, advanced liver disease.
Decreased fibrinogen and D-dimer increased could be seen in patient with liver disease.
PTT and INR are normal.
Platelets are recovering up to 105 K on 06/11/2024
No evidence for bleeding diathesis
Repeat CBC today-pending
Monitor for bleeding
HIT analysis :0.287 (normal less than 0.4) okay to restart heparin
-
CT chest abdomen pelvis without acute abnormalities. Continues to have significant bilateral infiltrates, pleural effusions. No acute collections intra-abdominal.
CT head no acute abnormalities. Mild sinusitis
Upper and lower extremity Dopplers without acute DVT
-
Anemia: Patient received 2 units of PRBC since hospital stay, last being 06/02
Multifactorial. Ongoing. Blood loss, chronic disease.
Status post additional unit of packed red blood cells given to due to hemoglobin less than 7 -06/10/2024
Good response, hemoglobin now 8.3.
No evidence for bleeding.
Will continue to minimize transfusion given underlying acute lung injury.
-
Follow urine output-renal function is normal.
Alva catheter in place
Patient with history of dialysis for prolonged period in October 2023 while in [place].
-
Continues with TPN. Has required TPN throughout hospital stay. Unfortunate patient with protein calorie malnutrition
Hypoalbuminemia noted-patient is in anasarca.
NG tube in place, maintain to suction especially when prone
Dilated small bowel loops based on prior studies
Surgery continues to follow
Medications per NG tube if okay with surgery
DVT prophylaxis: Restart Lovenox prophylaxis. HIT panel negative
GI prophylaxis: Remains on pantoprazole
-
Prognosis overall poor.
Prior discussion:
Dyan 06/13/24- spoke with father at bedside who understands her poor prognosis. He is prepared to terminally extubate tomorrow by Noon. He wishes for more family to be present and say goodbye.
Zaki - Father admits that patient has been difficult, refusing therapy multiple times. She listens to him when he tells her to do it but when he leaves the room, she reverts to refusing care and therapy. He also is asking 'why are we giving her
pain medicines? She is an addict?' I reviewed with father that when patient is screaming in excruciating pain, we cannot ignore this. We have to find a happy medium between controlling pain and avoiding oversedation. This will be difficult given
her drug abuse/polysubstance abuse history. Father states she has been using drugs probably since age of 15. Father also admits that patient has refused medications in the past, refuses placement of NG tube, refused nutrition when offered. Father
also upset that daughter is not getting nutrition. However upon reviewing records, with every attempt to advance diet, patient developed significant abdominal pain.
I also reviewed with father and stepmother worst-case scenario where patient progresses to multisystem organ failure, developed complication of prolonged hospital stay, prolonged mechanical ventilation such as thromboembolic disease, recurrent
infections, bleeding, cardiac complications, renal complications. He did not want to hear this but I proceeded with stepmother as father stepped away. I told the stepmother that it is important for him to be hopeful of outcome but to be aware of
potential complications.
Father confirmed full CODE STATUS
Dr. Haines Updated mother and father at bedside at length 06/06/2024, 06/07/2024, 06/08/2024-06/09/2024, 06/10/2024, 06/11/2024. All questions answered.
Prognosis continues to be very poor.
Dr. Haines updated mother and father at the bedside 06/12/2024. Now patient is DNR.
We discussed tracheotomy: It appears that under living will patient did not want to prolong mechanical ventilation, tracheotomy or artificial feedings. They will contemplate comfort measures if there is no ongoing improvement in the next 3 days or
so.
-
See prior update note for transfer to tertiary care center. No clear pathway for transfer to [facility]
Family aware
The above was reviewed at length with critical care nursing, respiratory care, primary service, infectious disease, surgery.
-----
Critical care statement: A total of 38 minutes of critical care time was provided for this patient today. This includes management of unstable vital signs, evaluation of the patient at bedside, reviewing the patient's pertinent medical records
including ventilator settings, arterial blood gases, radiographs, microbiology, laboratory evaluations and discussion with primary team, critical care nursing, and respiratory therapy.
Subjective Dataa
Subjective Data
Date of Service:
Date of Service: June 14, 2024
Chief Complaint: Bilingual Inside Sales Representative Follow Up (ARDS) and Vent Management Follow Up
Subjective:
Remains critically ill, no new events ON
Family at bedside, prepared for w/d today
Objective Data
Data Reviewed
Vital Signs / I&O / Oxygen:
Vital Signs
Temp Pulse Resp BP Pulse Ox
96.2 F L 97 24 119/67 95
06/14/24 03:30 06/14/24 06:00 06/14/24 06:00 06/13/24 15:22 06/14/24 04:00
Intake and Output
06/13/24 06/14/24 06/15/24
06:59 06:59 06:59
Intake Total 2551.6 / 2640.0 2402.2 / 2402.2
Output Total 2290 / 2310 1914 / 1914
Balance 261.6 / 330.0 487.2 / 487.2
SaO2 [A/C] 95
SaO2 99
Nasal Cannula flow liters per 60
minute
Physical Exam
General: Comfortable and Other (Anasarca)
HEENT: Normocephalic
Cardiovascular: S1-S2, Regular Rhythm (Tachycardic), Murmur (n), Rub (n), Peripheral Edema (n) and Other (Right upper extremity amputation, toe dressing)
Respiratory: Wheeze (n), Crackles (few posteriorly), Rhonchi (few), Non-Labored Respirations, Stridor (n) and ET Tube
GI: Soft, Non Distended, NG Tube and Other (Absent bowel sounds)
Neurology: Unresponsive (Sedated) and Other (Has respiratory effort)
Skin: Cyanosis (n), Jaundice (n) and Rash (n)
Labs/Micro/Reports
Lab Data
06/14/24 06:00
06/14/24 06:00
Laboratory Results
06/13/24
21:45
PT 14.1
INR 1.05
APTT 36.4 H
pH 7.45
pCO2 43 H
pO2 66 L
HCO3 29.9 H
O2 Delivery Level
Microbiology
06/08/24 11:45 Blood/Venous Blood Culture - Final
No Growth - Final Report
06/08/24 10:10 Blood/Venous Blood Culture - Final
No Growth - Final Report
--- NOTE | 2024-06-14 07:20 | W.PN.HOSP.TC ---
Today's Communication/Plan
-
Continue current care
Assessment / Plan
Assessment / Plan
Gen-sedated, intubated, supine
HEENT-NC, AT, anicteric, clear oral mm
Neck-supple
CV-reg, no M, +S1/S2, tachy; subclavian line in place
Lungs-clear B/L
Abd-soft, NT, ND
Ext-no edema
Musculoskeletal-no cyanosis, clubbing, bilateral foot drop
Skin-warm and dry
Acute hypoxic respiratory failure
-unfortunately worsening respiratory failure and now has ARDS physiology. LIkely 2/2 to aspiration pneumonitis
-Intubated first front ventilator 06/03 for respiratory failure.
-patient refused transfer to [facility] prior to intubation as per records and POA, despite initially possibly an ECMO candidate
-Prone positioning per protocol. Now supinated, PF ratio improving. No plans of proning at this time
�Continue AC/VC
� Continue ventilator settings, adjust as necessary� ARDSnet protocol for weaning as tolerated; continue sedation vacation as tolerated; Approaching tracheostomy discussions
� Status post nebulized epoprostenol, completed today
�Maintain euvolemia, slight net negative - diuretics daily
Septic shock
��Possibly secondary to pneumonia/ARDS
� CT imaging for persistent leukocytosis
�Vasopressors weaned off
� Continue stress dose steroids, patient was on steroids in the past - wean
� Wean steroids as tolerated
� Intermittent diuresis now with anasarca
�Continue meropenem for today
�ID consulted
-monitor cbc - possibly 2/2 to sbo
Recurrent SBO
-unclear etiology of bowel obstruction, perhaps ischemia induced strictures.
- She does not have a confirmed diagnosis of inflammatory bowel disease.
-High risk for operative intervention per surgical service given low prealbumin level, severe malnutrition and cirrhosis.
- Prealbumin remains low despite ongoing TPN. Last prealbumin was 5.2. Discussed with Dr. Godwin. I am not sure prealbumin is reliable in the setting of her underlying cirrhosis, critical illness.
-NG tube with minimal output. Continue suction; minimal bowel sounds
�TPN
� Trend labs�tentative plan for delayed operative intervention following steroid wean improvement in her nutritional/liver disease status
Intractable pain syndrome -
-complaining of severe bilateral lower extremity pain and muscle cramps which is chronic.
-Was on IV Dilaudid every 4 hours as needed prior to intubation.
-Currently on fentanyl IV as needed.
Acute anemia
Pancytopenia
� No evidence of acute bleeding
-most likely 2/2 to sepsis antibiotics although continued downtrend along with fluid resuscitation
-HIT panel negative - resume Lovenox
� Stop Lovenox
� IR consulted for replacement of subclavian triple-lumen cath
�Coags normal, can hold on cryoprecipitate at this time, no clinical evidence of DIC at this time
-transfuse 1 u today /
-Maintain hgb >7
-Transfused 4 units of blood so far this admission. Last transfusion /
- No obvious evidence of bleeding.
- Given positive fluid status of 4.8 L, suspect hemodilution induced anemia due to IV fluid administration. Monitor hemoglobin for now. Transfuse if below 7.
Pancolitis
-C. difficile antigen positive toxin negative recently treated with oral vancomycin.
Transaminitis
-suspect 2/2 to TPN and /or DILI
-monitor
-Already known hep C carrier
�Abdominal ultrasound with severe diffuse hepatic steatosis, small volume ascites, no evidence of cholelithiasis or biliary obstruction
Cirrhosis secondary to untreated hepatitis C.
Hepatic encephalopathy
Recurrent ascites.
Anasarca
Severe protein/calorie malnutrition -continue TPN.
Hypovolemic hyponatremia -resolved.
Hypokalemia -improved.
Acute on chronic anemia
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
Polysubstance abuse, former IVDA on Suboxone.
Anxiety disorder
Multiple skin breakdowns
Chronic bilateral lower extremity weakness, bedbound status
History of IVDA
Full code
Dispo: Plan for terminal extubation today as per family wishes for comfort measures. Discussed with nursing.
Anticipated Discharge: Today
Subjective/Interval History
-
Date of Service: June 14, 2024
Patient seen and examined. Remains sedated, intubated.
Objective Data
-
Labs:
Laboratory Results
06/13/24 06/14/24
21:45 06:00
WBC 28.6 H Cancelled
Hgb 7.8 L Cancelled
Hct 25.6 L Cancelled
Plt Count 234 D Cancelled
PT 14.1
INR 1.05
APTT 36.4 H
HCO3 29.9 H
Sodium 140 Cancelled
Potassium 3.1 L Cancelled
Chloride 110 H Cancelled
Carbon Dioxide 31 H Cancelled
BUN 37 H Cancelled
Creatinine 0.2 L Cancelled
Glucose 74 Cancelled
Calcium 7.5 L Cancelled
Total Bilirubin 0.4 Cancelled
AST 59 H Cancelled
ALT 45 H Cancelled
Alkaline Phosphatase 183 H Cancelled
Vital Signs:
Vital Signs
Temp Pulse Resp BP Pulse Ox
96.2 F L 97 24 119/67 95
06/14/24 03:30 06/14/24 06:00 06/14/24 06:00 06/13/24 15:22 06/14/24 04:00
I&O
06/13/24 06/14/24 06/15/24
06:59 06:59 06:59
Intake Total 2551.6 / 2640.0 2402.2 / 2402.2
Output Total 2290 / 2310 1914 / 1914
Balance 261.6 / 330.0 487.2 / 487.2
Review of Systems
-
Unable to obtain full review of systems at this time due to: Acuity and Patient Intubation
[2024-06-14] MEDS: NOVOLOG FLEXPEN-LOW RESISTANCE SC ×2 (07:45→10:13)
--- NOTE | 2024-06-14 08:51 | W.PN.ID1 ---
Date of Service
Date of Service: June 14, 2024
Today's Communication
Await transition to comfort measures.
Assessment / Plan
Leukocytosis
Fever
- recurred x 1 evening of 06/11/24
Recurrent SBO +/- ileus
-Unclear if secondary to Crohn's versus other inflammatory bowel disease.
VDRF
ARDS 2* Asp PNA
Thrombocytopenia
Increase LFT's
Profound protein calorie malnutrition (albumin = 1.5)
Anemia
Hx Cirrhosis
Hx hepatitis C (untreated)
Hx IVDA
Recommendations:
Sputum culture unrevealing; and positive only for normal starla.
Blood cultures negative. Wound culture from 05/16 appears to be a superficial culture and reflects superficial colonization only.
Abdominal ultrasound shows severe diffuse hepatic steatosis, but no evidence for cholelithiasis or biliary obstruction. Abdominal flatplate unrevealing.
Repeat blood cultures neg to date.
hx of C. diff colonization ( Ag(+)/toxin (-) in Apr).
Unable to send stool for C. diff due to chronic bowel obstruction/ileus
Continue empiric C. diff treatment IV metronidazole 500mg q8 and Vanco 125mg by tube q6h (d#7)
Continue meropenem (d#11)
Follow WBC, vitals, LFTs, platelets.
Patient remains critically ill in intensive care unit on vent support.
Overall prognosis appears progressively dismal for recovery. At this point, doubt any realistic potential return to a quality of life.
Spoke with mother who reports that patient will likely be made comfort measures later today. Emotional support provided.
Patient now DNR.
����������������������������������������������������������
Chief Complaint
-: Leukocytosis, Clinical Sepsis and Other (ARDS)
Subjective / Review of Systems
Patient seen and examined. Remains on vent at this time. Mother at the bedside.
Review of Systems: No Fever
Vital Signs / Physical Exam
Vital Signs
Vital Signs
Temp Pulse Resp BP Pulse Ox
96.0 F L 95 22 119/67 92
06/14/24 07:40 06/14/24 07:00 06/14/24 07:00 06/13/24 15:22 06/14/24 08:05
Physical Exam
Constitutional: Comfortable, Acutely Ill, Chronically Ill and Other (Critically ill)
Oropharyngeal: Other (ET tube in place. NG tube in place to suction)
Cardiovascular: Regular Rate, S1/S2 and Other (tachycardic)
Pulmonary: Coarse and Other (On vent.)
Gastrointestinal: Soft, Distended (moderate), Decreased Bowel Sounds (No auscultated bowel sounds) and Other (No bowel sounds auscultated. Positive anasarca)
Genito-Urinary: Alva and Clear Urine
Extremities: Edema (Upper extremities and lower extremities bilaterally; 4+); Negative Erythema
Neurological: Other (Sedated)
Objective Data
Lab Data
Lab Results
06/14/24 06:00
06/14/24 06:00
PT 14.1 Sec (11.4-14.6) 06/13/24 21:45
INR 1.05 06/13/24 21:45
APTT 36.4 Sec (23.4-35.0) H 06/13/24 21:45
Estimated Creat Clear Cancelled 06/14/24 06:00
Lactic Acid 1.1 mmol/L (0.7-2.0) 06/03/24 02:03
Total Bilirubin Cancelled 06/14/24 06:00
AST Cancelled 06/14/24 06:00
ALT Cancelled 06/14/24 06:00
Alkaline Phosphatase Cancelled 06/14/24 06:00
C-Reactive Protein 64.80 mg/L (0.0-10.00) H 05/11/24 04:38
Amylase 35 U/L (30-110) 06/13/24 21:45
Most recent labs reviewed.
Micro Results:
06/08/24 11:45 Blood Culture - Final
Blood/Venous No Growth - Final Report
06/08/24 10:10 Blood Culture - Final
Blood/Venous No Growth - Final Report
06/03/24 04:12 Respiratory Culture - Final
Endotracheal Usual Respiratory Starla
Gram Stain - Final
06/03/24 01:46 Influenza Types A & B (VICKEY) - Final
Nasal Swab Negative for Influenza A & B, NAAT
Negative results must be combined with clinical observations
and patient history.
Nucleic Acid Amplification test (NAAT)performed on the
[employer] platform.
05/23/24 14:01 Blood Culture - Final
Blood/Venous No Growth - Final Report
05/26/24 23:16 - Final
Feces/Stool Negative for Norovirus GI and GII.
05/16/24 11:15 Wound Culture - Final
Foot - Right Serratia marcescens
Gram Stain - Final
05/16/24 11:15 Anaerobic Culture - Final
Foot - Right NO ANAEROBES ISOLATED
05/12/24 04:38 Urine Culture - Final
Urine Escherichia coli
05/11/24 22:56 MRSA Screen - Final
Nose No Methicillin Resistant Staphylococcus aureus isolated.
Imaging:
06/04/2024 CXR (portable): Stable bilateral pleural effusions, progressed. Bilateral interstitial and airspace opacities overall slightly progressed from prior exam. Findings again likely represent multifocal pneumonia versus developing ARDS.
06/03/2024 ECHO (TTE): Normal biventricular size and systolic function without regional wall motion abnormalities. EF approximately 55 to 60%. No intracardiac mass or thrombus formation is noted. Please see full dictation for additional detail.
05/17/2024 CT abdomen/pelvis with IV contrast: Significant dilatation of small bowel loops extending into the region of the distal ileum. In the pelvis there is increased enhancement of the wall of several loops of small bowel with slight stranding
of the adjacent fat with suggestion of a transition in caliber in the right pelvis as described. Findings compatible with small bowel obstruction. No evidence of free intraperitoneal air.
Care Review
Plan reviewed with: Nurse
[2024-06-14 08:56] LABS: Glycohemoglobin (HgbA1c) 4.7 % (4.0-5.6)
[2024-06-14] MEDS: REFRESH CELLUVISC GEL 1 DROPS OPHTH (09:05)
[2024-06-14] MEDS: LASIX 20 MG IV (09:05)
[2024-06-14] MEDS: PROTONIX IV 40 MG IV (09:05)
[2024-06-14] MEDS: FLEXERIL 10 MG TUBE (09:05)
[2024-06-14] MEDS: NEURONTIN 400 MG TUBE (09:05)
[2024-06-14] MEDS: NSS (PRESERVATIVE FREE) 10 ML IV (09:06)
[2024-06-14] MEDS: MIRALAX 17 GRAMS TUBE (09:06)
[2024-06-14] MEDS: HYDROPHOR 1 APPLIC TOPICAL (09:06)
[2024-06-14 09:15] VITALS: BP 93/57
--- NOTE | 2024-06-14 09:48 | PTCARENOTE ---
Received pt from previous RN. Pt reamins unresponsive, responds to tactile stimuli. NSR on the monitor. ETT #8 24 @ lip. AC 16/400/100%/8, O2 sat 92%, lungs coarse/rhonchi/diminished. Right nare NG @ 65 cm to low intermittent suction. Alva in
place.Meds as documented. Fent and prop gtt infusing via R femoral TL. L femoral Corinne in place. (see worlist). Plan discussed with family, Architectural Associate and care team during rounds, plan for palliative extubation at 12:00, orders rec'd. Pediatrician Active [facility]
called to bedside for emotional support for mother. Safe environment maintained.
[2024-06-14] MEDS: STERILE WATER FOR INJECTION IV (09:55)
[2024-06-14] MEDS: ROBINUL 0.2 MG IV (10:56)
[2024-06-14] MEDS: NSS (PRESERVATIVE FREE) 1 ML IV ×2 (10:57→13:04)
[2024-06-14] MEDS: ATIVAN 2 MG IV ×5 (10:57→12:23)
--- NOTE | 2024-06-14 11:18 | PTCARENOTE ---
PRN Glycopyrrolate and Lorazepam administered at 10:57. Family arriving at bedside, comfort tray provided, questions answered.
--- NOTE | 2024-06-14 12:17 | RESPNOTE ---
patient extubated for comfort measures per MD order at 1210.
--- NOTE | 2024-06-14 13:07 | PTCARENOTE ---
Addendum entered by Marleni Saha RN 06/14/24 14:23:
Extubated at 12:10, not 12:05.
Original Note:
Pt was extubated at 12:05 with RT per orders. Medications for comfort administered per worklist. Emotional support provided to family members at beside. Chaplain Elliott called to room to provide support. Asytole on tele at 13:07. notified,
arrived at bedside to pronounce.
--- NOTE | 2024-06-14 13:25 | CM ---
CM following re: discharge planning.
Discussed in rounds, reviewed pt's chart, met with pt and many family members at bedside. Emotional support provided.
Per chart review, pt extubated at 12:10 p.m. for comfort care.
D/C plan: comfort care.
CM is available for emotional support.
--- NOTE | 2024-06-14 14:01 | W.PN.DEATH ---
Pronouncement of
-
Called to see patient to pronounce.
No spontaneous heart tones or respirations noted.
Patient not responsive to verbal stimuli.
Patient is pronounced .
Time of : 13:30
Date of : 06/14/24
Cause of : Respiratory failure, ARDS, pneumonia, septic shock, small bowel obstruction
Family Notified: Yes
--- NOTE | 2024-06-14 14:24 | PTCARENOTE ---
Postmortem care provided, pt dressed in pajamas per family request. [place] [facility] [place], father, stepmother and sister accompanying. GOL notified of .
== END 2024-06-14 13:30 | disposition expired | DRG 981 ==
LOC: ICU 02:26
PROVIDERS: Internal Medicine; Internal Medicine Critical Care Medicine; Nurse Practitioner Adult Health; Nurse Practitioner Family; Nurse Practitioner Gerontology; Nurse Practitioner Primary Care; Radiology Vascular & Interventional Radiology; Registered Nurse; Student in an Organized Health Care Education/Training Program; Surgery; ADMITTING PHYSICIAN Hospitalist; ATTENDING PHYSICIAN Hospitalist; CONSULT PHYSICIAN Internal Medicine Critical Care Medicine; CONSULT PHYSICIAN Internal Medicine Gastroenterology; CONSULT PHYSICIAN Internal Medicine Infectious Disease; CONSULT PHYSICIAN Surgery; EMERGENCY PHYSICIAN Emergency Medicine; OTHER PHYSICIAN Student in an Organized Health Care Education/Training Program
PROC: 0QBQ0ZZ Excision of Right Toe Phalanx, Open Approach (ICD-10-PCS; 2024-05-16)
PROC: 3E0436Z Introduction of Nutritional Substance into Central Vein, Percutaneous Approach (ICD-10-PCS; 2024-05-17)
PROC: 30233N1 Transfusion of Nonautologous Red Blood Cells into Peripheral Vein, Percutaneous Approach (ICD-10-PCS; 2024-05-20)
PROC: 5A1955Z Respiratory Ventilation, Greater than 96 Consecutive Hours (ICD-10-PCS; 2024-06-03)
PROC: 0BH17EZ Insertion of Endotracheal Airway into Trachea, Via Natural or Artificial Opening (ICD-10-PCS; 2024-06-03)
PROC: 04HY32Z Insertion of Monitoring Device into Lower Artery, Percutaneous Approach (ICD-10-PCS; 2024-06-05)
PROC: 02HV33Z Insertion of Infusion Device into Superior Vena Cava, Percutaneous Approach (ICD-10-PCS; 2024-06-09)
DX: K50.912 Crohn's disease, unspecified, with intestinal obstruction (principal); A41.9 Sepsis, unspecified organism; E43 Unspecified severe protein-calorie malnutrition; J80 Acute respiratory distress syndrome; R65.21 Severe sepsis with septic shock; J18.9 Pneumonia, unspecified organism; J69.0 Pneumonitis due to inhalation of food and vomit; E87.1 Hypo-osmolality and hyponatremia; R18.8 Other ascites; M86.8X7 Other osteomyelitis, ankle and foot; D61.818 Other pancytopenia; G62.81 Critical illness polyneuropathy; T87.81 Dehiscence of amputation stump; A04.72 Enterocolitis due to Clostridium difficile, not specified as recurrent; Z66 Do not resuscitate; Z51.5 Encounter for palliative care; Y83.5 Amputation of limb(s) as the cause of abnormal reaction of the patient, or of later complication, without mention of misadventure at the time of the procedure; B19.20 Unspecified viral hepatitis C without hepatic coma; K74.60 Unspecified cirrhosis of liver; D63.8 Anemia in other chronic diseases classified elsewhere; E83.42 Hypomagnesemia; L89.312 Pressure ulcer of right buttock, stage 2; F11.10 Opioid abuse, uncomplicated; K76.82 Hepatic encephalopathy; F17.210 Nicotine dependence, cigarettes, uncomplicated; E87.6 Hypokalemia; G89.4 Chronic pain syndrome; R60.0 Localized edema; F31.9 Bipolar disorder, unspecified; K76.0 Fatty (change of) liver, not elsewhere classified; D73.5 Infarction of spleen; E88.09 Other disorders of plasma-protein metabolism, not elsewhere classified; K21.9 Gastro-esophageal reflux disease without esophagitis; F41.9 Anxiety disorder, unspecified; Z11.52 Encounter for screening for COVID-19; Z68.27 Body mass index [BMI] 27.0-27.9, adult; Z74.01 Bed confinement status; Z79.52 Long term (current) use of systemic steroids; Z79.899 Other long term (current) drug therapy
CPT/HCPCS: 88304; 88311; 36556; 36598; 36600; 70450; 71045; 71260; 73630; 74018; 74022; 74176; 74177; 76700; 76937; 77001; 80048; 80053; 80076; 80306; 80307; 81003; 81015; 82140; 82150; 82248; 82330; 82533; 82550; 82805; 82962; 83036; 83605; 83690; 83735; 83880; 83993; 84100; 84132; 84134; 84145; 84302; 84466; 84478; 84484; 84702; 85014; 85018; 85025; 85027; 85379; 85384; 85610; 85730; 86022; 86140; 86850; 86900; 86901; 86920; 87040; 87070; 87075; 87077; 87086; 87186; 87205; 87502; 87798; 87811; 93306; 93970; 93971; 94002; 94003; 97110; 97530; 99406; C1751; J1325; P9016; Q9967